=== PATIENT | male | born 1950 | race Caucasian/White ===

== ENCOUNTER 2016-09-17 16:47 | Emergency (ER) | payer OTHER, SELFPAY | END 2016-09-17 18:44 | disposition home or self-care (01) | PROVIDERS: Emergency Provider Emergency Medicine; Visit Provider Emergency Medicine | DX: M25.571 Pain in right ankle and joints of right foot (principal); T81.4XXA Infection following a procedure, initial encounter | CPT/HCPCS: 99201 ==

== ENCOUNTER 2017-07-21 12:58 | Emergency (ER) | payer OTHER, MEDICARE, SELFPAY ==
[2017-07-21 13:05] VITALS: BP 136/65; PULSE 65; RESP 16; TEMP 36.7; O2SAT 96; BMI 50.5
--- NOTE | 2017-07-21 13:11 | XR_ITS ---
XR chest 2V HISTORY: ITS.REASON: COUGH UP BLOOD ORDERING PHYSICIAN: Dustin Ashton MD PATIENT AGE: 67 years COMPARISON: None available FINDINGS: The cardiomediastinal silhouette and pulmonary vascularity are within normal limits. There is a coronary artery stent present No lobar consolidation or collapse is evident. A 7 mm faint nodular opacity is present in the right upper lobe overlying the second rib anteriorly nonspecific. Faint opacity also noted in the left upper lobe at 10 mm at the second interspace. The skull be due to summation artifacts. Cannot see the possibility of pulmonary nodules.. No acute bony abnormalities. IMPRESSION: 1. No acute finding. 2. Faint nodular opacities in the upper lobes. Follow-up chest x-ray suggested. If this persists, CT may be needed for further evaluation
--- NOTE | 2017-07-21 13:12 | HMH.EDGENADL ---
ED Disposition Clinical Impression: Bronchitis, Hemoptysis, Chest wall pain Diarrhea Qualifiers: Diarrhea type: unspecified type Qualified Code(s): R19.7 - Diarrhea, unspecified Disposition: Home, Self-Care Condition on Discharge: Good Instructions: DI for Acute Bronchitis Additional Instructions: Please drink plenty of fluids, take the antibiotics prescribed as instructed. If not better return to the emergency room (at anytime) or follow-up with your family physician within 2 days. Prescriptions: Amoxicillin/Potassium Clav [Augmentin 875-125 Tablet] 1 tab PO Q12H #20 tab Time of Disposition: 14:49 - Critical Care Critical Care Time: No Attestation: On , the high probability of a clinically significant, sudden or life threatening deterioration of the following system(s) required my full and direct attention, intervention and personal management. The time I documented below is in addition to time spent performing reported procedures but includes the following listed in this critical care notation. Medical Decision Making - Medical Records Medical records reviewed: Yes: I reviewed the patient's medical records. Vital Signs: 07/21/17 13:05 07/21/17 14:27 07/21/17 14:54 Temperature 98.1 F 98.8 F Temperature Source Oral Pulse Rate 85 79 Pulse Rate [Right Brachial] 65 Respiratory Rate 16 24 Blood Pressure 126/84 Blood Pressure [Right Arm] 136/65 Blood Pressure Mean [Right Arm] 88 Blood Pressure Source [Right Arm] Automatic Cuff Blood Pressure Position [Right Arm] Sitting 02 Sat by Pulse Oximetry 96 Oxygen Delivery Method Room Air - Lab Data Lab results reviewed: Yes: I reviewed the patient's lab results. Orders (Tests/Meds): ED MEDICATIONS Discontinued Medications Generic Name Dose Route Start Last Admin Trade Name Freq PRN Reason Stop Dose Admin Albuterol/Ipratropium 3 ml 07/21/17 13:52 07/21/17 14:24 Duoneb 3ml Neb IH 07/21/17 13:53 3 ml ONCE ONE Administration Amoxicillin/Clavulanate Potassium 500 each 07/21/17 13:52 Augmentin 500mg Tablet PO 07/21/17 13:53 ONCE ONE Protocol Diphenoxylate HCl/Atropine 5 mg 07/21/17 14:47 Lomotil 2.5mg Tablet PO 07/21/17 14:48 ONCE ONE Prednisone 60 mg 07/21/17 13:52 Deltasone 20mg Tablet PO 07/21/17 13:53 ONCE ONE ORDERS Category Date Time Status Diarrhea Panel, PCR Stat Lab 07/21/17 14:47 Ordered - Radiology Data #1 Image(s): Chest Image Reviewed: Yes I reviewed the patient's radiology image Preliminary Findings: Normal/NAD - Maninder Inquiry Pt receiving controlled substance: No - Reevaluation(s) Time: 14:30 Reevaluation #1: Upon reevaluation patient appears medically stable, in no acute distress, with no further episodes of epistaxis / hemotysis. Patient will be started on antibiotics, advised to follow-up with PCP or promptly return to the emergency room if any further recurrent episodes of coughing up blood. General Adult HPI - General Chief complaint: Upper Respiratory Infection Stated complaint: COUGHING UP BLOOD Time Seen by Provider: 07/21/17 12:58 Mode of Arrival: Family Vehicle Source of Information: Patient Limitations: No Limitations Description of Symptoms (Recalled from ER Triage Doc. by RN): COUGHING WITH A COLD FOR ABOUT A WEEK; SPIT UP BLOOD TODAY - History of Present Illness HPI narrative: This is a 67-year-old male patient presenting to the emergency room with productive cough that started approximately 1 week ago. Earlier this morning he has noticed that his sputum is blood-tinged. Complaint with pleuritic type chest pain. He denies any shortness of breath, any fever, chills, any recent travel, recent exposure to sick contacts. complaint: hemoptysis Onset (ago): day(s) (7) Location: chest Radiation: non-radiation Severity: mild Severity scale (1-10): 2 Quality: sharp Consistency: intermittent (Wit
[2017-07-21 14:27] VITALS: PULSE 85; PULSE 86
[2017-07-21 14:54] VITALS: BP 126/84; PULSE 79; RESP 24; TEMP 37.1; O2SAT 98
== END 2017-07-21 14:56 | disposition home or self-care (01) ==
PROVIDERS: Emergency Provider Emergency Medicine
DX: J20.9 Acute bronchitis, unspecified (principal); R07.89 Other chest pain; R19.7 Diarrhea, unspecified; I25.10 Atherosclerotic heart disease of native coronary artery without angina pectoris; I10 Essential (primary) hypertension; I25.2 Old myocardial infarction
CPT/HCPCS: 71046; 99283

== ENCOUNTER 2017-07-23 12:28 | Emergency (ER) | payer OTHER, SELFPAY ==
[2017-07-23 12:34] VITALS: BP 121/73; PULSE 85; RESP 18; TEMP 36.8; O2SAT 94; BMI 23.0
[2017-07-23 12:51] VITALS: BP 141/78; PULSE 90; RESP 18; TEMP 36.6; O2SAT 96; BMI 23.0
--- NOTE | 2017-07-23 12:54 | HMH.EDUTC ---
[facility] Disposition Clinical Impression: Sialoadenitis of submandibular gland Disposition: Home, Self-Care Condition on Discharge: Good Instructions: Parotitis Additional Instructions: [facility]17 (patient given copy of report) [facility] if swelling on right side of chin does not resolve. Sour candy, warm compresses Prescriptions: cephALEXin [Keflex 500mg Cap] 500 mg PO Q6H 10 Days #40 cap predniSONE [Prednisone 20mg Tab] 20 mg PO BID 5 Days #10 tab Referrals: Everett Ward MD [Physician] - Time of Disposition: 13:10 Medical Decision Making - Medical Records Medical records reviewed: Yes: I reviewed the patient's medical records. MR Comment: CXR from 07/21/17 showed nodules requiring follow up CXR or CT - patient given [facility] Vital Signs: 07/23/17 12:34 07/23/17 12:51 Temperature 98.2 F 98 F Temperature Source Oral Temporal Artery Scan Pulse Rate [Left Brachial] 85 90 Respiratory Rate 18 18 Blood Pressure [Left Arm] 121/73 141/78 Blood Pressure Mean [Left Arm] 89 99 Blood Pressure Source [Left Arm] Automatic Cuff Automatic Cuff Blood Pressure Position [Left Arm] Sitting Sitting 02 Sat by Pulse Oximetry 94 L 96 Oxygen Delivery Method Room Air Room Air - Maninder Inquiry Pt receiving controlled substance: No Medical Decision Making Narrative: Swelling likely unrelated to Augmentin, but will change antibiotics to better cover sialadenitis. Add Prednisone for breathing difficulty. [facility] HPI - General Stated complaint: possible allergic reaction to meds Time Seen by Provider: 07/23/17 12:50 Mode of Arrival: Ambulatory Source of Information: Patient Limitations: No Limitations Description of Symptoms (Recalled from Triage Doc. by RN): PT STATES HE STARTED TAKING AMOXICILLIN 2 DAYS AGO AND THEN NOTICED SWELLING ON THE RT SIDE OF HIS FACE. HES HAD 3 DOSES OF THE MED. HEENT Symptoms (Recalled from RN notes): No Resp Symptoms (Recalled from RN notes): No Skin Symptoms (Recalled from RN notes): No MS Symptoms (Recalled from RN notes): No Functional Status (Recalled from RN notes): NA - History of Present Illness Provider Complaint: Patient seen on 07/21/17 in ER for hemoptyis. He was diagnosed with URI, given Augmentin. Has had progressive swelling on the right side of his jaw since Wednesday, seeming to get worse with each dose of Augmentin. He is still short of breath as well, but no longer coughing up blood. Quit smoking years ago. No recent weight loss. Onset (ago): day(s) (2) Location: head, face Exacerbating factors: medication Associated symptoms: denies other symptoms Treatments prior to arrival: none - Related Data Home Medications Medication Instructions Recorded Confirmed Clopidogrel Bisulfate [Plavix 75mg 75 mg PO DAILY 07/23/17 07/23/17 Tab] Previous Rx's Medication Instructions Recorded cephALEXin [Keflex 500mg Cap] 500 mg PO Q6H 10 Days #40 cap 07/23/17 predniSONE [Prednisone 20mg 20 mg PO BID 5 Days #10 tab 07/23/17 Tab] Allergies Allergy/AdvReac Type Severity Reaction Status Date / Time No Known Allergies Allergy Verified 07/23/17 12:54 - Worker's Comp Is this a Worker's Comp case?: No [facility] History Medical History: Reports:: Coronary Artery Disease (hypercholesterolemia), Hypertension, Myocardial Infarction (s/p 4 stents) Denies:: Internal Pacemaker Other Surgeries: No: Pacemaker Amputation: No Fractures: No - *Social History Smoking Status: Never smoker Alcohol Intake: never - Psychiatric History Expresses thoughts of harming self/others: None Suicide Plan Description: No Plan ROS Obtained: Yes All systems reviewed & no additional complaints - Constitutional Constitutional: Denies fever(s), Denies night sweats, Denies weight loss - ENT Ears, Nose, Mouth, and Throat: Reports as per HPI, Reports neck mass - Respiratory Respiratory: Yes cough, Yes coughing up blood, Yes wheezin
--- NOTE | 2017-07-23 12:59 | ED_ITS ---
[facility] [place] Impression: Sialoadenitis of submandibular gland Disposition: Home, Self-Care Condition on Discharge: Good Instructions: Parotitis Additional Instructions: [facility] on [facility] from [facility]/17 (patient given copy of report) [facility] if swelling on right side of chin does not resolve. Sour candy, warm compresses Prescriptions: cephALEXin [Keflex 500mg Cap] 500 mg PO Q6H 10 Days #40 cap predniSONE [Prednisone 20mg Tab] 20 mg PO BID 5 Days #10 tab Referrals: Everett Ward MD [Physician] - Time of Disposition: 13:10 Medical Decision Making - Medical Records Medical records reviewed: Yes: I reviewed the patient's medical records. MR Comment: CXR from 07/21/17 showed nodules requiring follow up CXR or CT - patient given copy [facility] Vital Signs: 07/23/17 12:34 07/23/17 12:51 Temperature 98.2 F 98 F Temperature Source Oral Temporal Artery Scan Pulse Rate [Left Brachial] 85 90 Respiratory Rate 18 18 Blood Pressure [Left Arm] 121/73 141/78 Blood Pressure Mean [Left Arm] 89 99 Blood Pressure Source [Left Arm] Automatic Cuff Automatic Cuff Blood Pressure Position [Left Arm] Sitting Sitting 02 Sat by Pulse Oximetry 94 L 96 Oxygen Delivery Method Room Air Room Air - Maninder Inquiry Pt receiving controlled substance: No Medical Decision Making Narrative: Swelling likely unrelated to Augmentin, but will change antibiotics to better cover sialadenitis. Add Prednisone for breathing difficulty. [facility] - General Stated complaint: possible allergic reaction to meds Time Seen by Provider: 07/23/17 12:50 Mode of Arrival: Ambulatory Source of Information: Patient Limitations: No Limitations Description of Symptoms (Recalled from Triage Doc. by RN): PT STATES HE STARTED TAKING AMOXICILLIN 2 DAYS AGO AND THEN NOTICED SWELLING ON THE RT SIDE OF HIS FACE. HES HAD 3 DOSES OF THE MED. HEENT Symptoms (Recalled from RN notes): No Resp Symptoms (Recalled from RN notes): No Skin Symptoms (Recalled from RN notes): No MS Symptoms (Recalled from RN notes): No Functional Status (Recalled from RN notes): NA - History of Present Illness Provider Complaint: Patient seen on 07/21/17 in ER for hemoptyis. He was diagnosed with URI, given Augmentin. Has had progressive swelling on the right side of his jaw since Wednesday, seeming to get worse with each dose of Augmentin. He is still short of breath as well, but no longer coughing up blood. Quit smoking years ago. No recent weight loss. Onset (ago): day(s) (2) Location: head, face Exacerbating factors: medication Associated symptoms: denies other symptoms Treatments prior to arrival: none - Related Data Home Medications Medication Instructions Recorded Confirmed Clopidogrel Bisulfate [Plavix 75mg 75 mg PO DAILY 07/23/17 07/23/17 Tab] Previous Rx's Medication Instructions Recorded cephALEXin [Keflex 500mg Cap] 500 mg PO Q6H 10 Days #40 cap 07/23/17 predniSONE [Prednisone 20mg 20 mg PO BID 5 Days #10 tab 07/23/17 Tab] Allergies Allergy/AdvReac Type Severity Reaction Status Date / Time No Known Allergies Allergy Verified 07/23/17 12:54 - Worker's Comp Is this a Worker's Comp case?: No [facility] History Medical History: Reports:: Coronary Artery Disease (hypercholesterolemia), Hypertension, Myocardial In
== END 2017-07-23 13:00 | disposition home or self-care (01) ==
LOC: ER 12:45 → UTC 12:45
PROVIDERS: Emergency Provider Physician Assistant
DX: K11.21 Acute sialoadenitis (principal); I25.10 Atherosclerotic heart disease of native coronary artery without angina pectoris; I10 Essential (primary) hypertension; Z79.899 Other long term (current) drug therapy; I25.2 Old myocardial infarction; Z95.0 Presence of cardiac pacemaker
CPT/HCPCS: 99202

== ENCOUNTER 2020-04-04 12:32 | Emergency (ER) | payer OTHER, SELFPAY ==
--- NOTE | 2020-04-04 12:49 | HMH.EDUTC ---
[facility] [place] Disposition Clinical Impression: Low back pain Qualifiers: Chronicity: acute Back pain laterality: right Sciatica presence: with sciatica Sciatica laterality: sciatica of right side Qualified Code(s): M54.41 - Lumbago with sciatica, right side Disposition: Home, Self-Care Condition on Discharge: Good Instructions: Low Back Pain, DI for Low Back Pain Additional Instructions: Go home and rest. It would be best if you rested tomorrow too. No heavy lifting. No twisting. Take the oral medications as directed. The muscle relaxer (robaxin) will make you drowsy, so don't drive or operate heavy machinery after taking it. Don't start the oral steroids (medrol dose pack) until tomorrow, since you had the shots in here today. Follow up with your regular doctor. GO TO THE ER FOR ANY WORSENING SYMPTOMS OR CONCERN, ESPECIALLY BOWEL OR BLADDER ISSUES, SADDLE AREA NUMBNESS, FEVER, ETC Prescriptions: methylPREDNISolone [Medrol] 4 mg PO DIRECTED 6 Days #21 tab.ds.pk Transmission Status: Received by [id number] Methocarbamol [Robaxin 500mg Tab] 500 mg PO BIDP PRN #30 tab PRN Reason: Muscle Spasm Transmission Status: Received by [id number] Referrals: PCP,No [Primary Care Provider] - Forms: Work/School Release Time of Disposition: 13:28 Medical Decision Making - Medical Records Medical records reviewed: No: I reviewed the patient's medical records. - Maninder Inquiry Pt receiving controlled substance: No Vital Signs: 04/04/20 12:58 04/04/20 13:32 Temperature 98.7 F 98.7 F Temperature Source Oral Pulse Rate 66 Pulse Rate [Right Brachial] 66 Respiratory Rate 20 20 Blood Pressure 157/80 H Blood Pressure [Right Arm] 157/80 H Blood Pressure Mean [Right Arm] 105 Blood Pressure Source [Right Arm] Automatic Cuff Blood Pressure Position [Right Arm] Sitting 02 Sat by Pulse Oximetry 97 Oxygen Delivery Method Room Air Orders (Tests/Meds): ED MEDICATIONS Discontinued Medications Generic Name Dose Route Start Last Admin Trade Name Freq PRN Reason Stop Dose Admin Ketorolac Tromethamine 30 mg 04/04/20 13:05 04/04/20 13:16 Ketorolac 60mg/2ml Vial IM 04/04/20 13:06 30 mg ONCE ONE Administration Methylprednisolone Sodium Succinate 125 mg 04/04/20 13:05 04/04/20 13:16 Methylprednisolone Sod Succ 125mg Vial IM 04/04/20 13:06 125 mg ONCE ONE Administration [facility] [place] HPI - General Stated complaint: WC 07/05/19 back pain Time Seen by Provider: 04/04/20 12:51 - History of Present Illness Provider Complaint: He c/o right lower back pain since yesterday. 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 When he was raising the stoll on his bus to do a safety check he felt something pull in his right lower back. Since then he has had pain of his lower back that is worse with bending and twisting. - Related Data Home Medications Medication Instructions Recorded Confirmed Aspirin [Aspirin 81mg chewable 81 mg PO DAILY 04/04/20 04/04/20 tab] Clopidogrel Bisulfate [Plavix 75mg 75 mg PO DAILY 04/04/20 04/04/20 Tab] Previous Rx's Medication Instructions Recorded Methocarbamol [Robaxin 500mg Tab] 500 mg PO BIDP PRN #30 tab 04/04/20 methylPREDNISolone [Medrol] 4 mg PO DIRECTED 6 Days #21 04/04/20 tab.ds.pk Allergies Allergy/AdvReac Type Severity Reaction Status Date / Time No Known Allergies Allergy Verified 07/23/17 12:54 [facility] History - Hepatitis A Screen Attestation statement:: This patient has been screened for Hepatitis A risk factors. I have reviewed the patient's past medical history: Yes Medical History: Reports:: Coronary Artery Disease (hypercholesterolemia), Hypertension, Myocardial Infarction (s/p 4 stents) Denies:: Internal Pacemaker Other Surgeries: No: Pacemaker Amputation: No Fractures: No - Social History Smoking Status: Never smoker Alcohol Intake: never ROS Obtained: Yes All systems reviewed & no additi
[2020-04-04 12:58] VITALS: BP 157/80; PULSE 66; RESP 20; TEMP 37.1; O2SAT 97; BMI 21.6
[2020-04-04 13:32] VITALS: BP 157/80; PULSE 66; RESP 20; TEMP 37.1; O2SAT 97
== END 2020-04-04 13:48 | disposition home or self-care (01) ==
PROVIDERS: Emergency Provider Nurse Practitioner Family
DX: M54.41 Lumbago with sciatica, right side (principal); X50.0XXA Overexertion from strenuous movement or load, initial encounter; Y92.69 Other specified industrial and construction area as the place of occurrence of the external cause; Y99.0 Civilian activity done for income or pay
CPT/HCPCS: 96372; 99201

== ENCOUNTER 2020-04-08 11:33 | Emergency (ER) | payer OTHER, SELFPAY ==
[2020-04-08 11:44] VITALS: BP 185/73; PULSE 70; RESP 20; TEMP 36.7; O2SAT 98; BMI 21.6
--- NOTE | 2020-04-08 11:48 | XR_ITS ---
PROCEDURE: XR LUMBAR SPINE 2-3V CLINICAL INDICATION: hurt at work Back pain COMPARISON: CR CXR2V XR chest 2V from 07/21/2017 FINDINGS: No fracture or dislocation. No lytic or blastic change. There is normal mineralization. Anterior osteophytes are present at L2 L3 and L4. There is lumbarization of S1. Arterial stent is present in the right iliac area. There are multiple small calcific densities overlying the left upper quadrant suggesting renal calculi. Other findings:None. IMPRESSION: Degenerative changes, no acute finding. Left nephrolithiasis Dictated by: Nomi Smalls MD 04/08/2020 13:49 Nomi Smalls MD in [place] 04/08/2020 13:49
--- NOTE | 2020-04-08 12:02 | HMH.EDUTC ---
[facility] [place] Impression: Low back pain Qualifiers: Chronicity: acute Back pain laterality: right Sciatica presence: with sciatica Sciatica laterality: sciatica of right side Qualified Code(s): M54.41 - Lumbago with sciatica, right side Disposition: Home, Self-Care Condition on Discharge: Good Instructions: Low Back Pain, DI for Low Back Pain Additional Instructions: Go home and rest. It would be best if you rested tomorrow too. No heavy lifting. No twisting. Take the medications as directed. The muscle relaxer (cyclobenziprine) will make you drowsy, so don't drive or operate heavy machinery after taking it. Don't take the robaxin and the cyclobenziprine. These are both muscle relaxers and it will make you too drowsy. Follow up with your regular doctor. GO TO THE ER FOR ANY WORSENING SYMPTOMS OR CONCERN, ESPECIALLY BOWEL OR BLADDER ISSUES, SADDLE AREA NUMBNESS, FEVER, ETC Prescriptions: Cyclobenzaprine HCl [Cyclobenzaprine 10mg Tab*] 10 mg PO BIDP PRN #30 tab PRN Reason: Muscle Spasm Transmission Status: Received by [id number] Referrals: PCP,No [Primary Care Provider] - Nat Weston MD [Physician] - Forms: Work/School Release Time of Disposition: 13:09 Medical Decision Making - Medical Records Medical records reviewed: No: I reviewed the patient's medical records. - Maninder Inquiry Pt receiving controlled substance: No Vital Signs: 04/08/20 11:44 04/08/20 13:09 Temperature 98.1 F 98.1 F Temperature Source Oral Pulse Rate 70 Pulse Rate [Left Brachial] 70 Respiratory Rate 20 20 Blood Pressure 185/73 H Blood Pressure [Left Arm] 185/73 H Blood Pressure Mean [Left Arm] 110 Blood Pressure Source [Left Arm] Automatic Cuff Blood Pressure Position [Left Arm] Sitting 02 Sat by Pulse Oximetry 98 Oxygen Delivery Method Room Air Orders (Tests/Meds): ED MEDICATIONS Discontinued Medications Generic Name Dose Route Start Last Admin Trade Name Freq PRN Reason Stop Dose Admin Ketorolac Tromethamine 60 mg 04/08/20 12:48 04/08/20 12:59 Ketorolac 60mg/2ml Vial IM 04/08/20 12:49 60 mg ONCE ONE Administration [facility] [place] - General Stated complaint: [id number] back injury Time Seen by Provider: 04/08/20 12:08 Mode of Arrival: Ambulatory Source of Information: Patient Limitations: No Limitations Description of Symptoms (Recalled from Triage Doc. by RN): PATIENT WAS SEEN HERE LAST WEEK FOR WC BACK SPRAIN ON 04/04/20. STATES NO IMPROVEMENT HEENT Symptoms (Recalled from RN notes): No Resp Symptoms (Recalled from RN notes): No Skin Symptoms (Recalled from RN notes): No MS Symptoms (Recalled from RN notes): Yes Functional Status (Recalled from RN notes): WNL - History of Present Illness Provider Complaint: He is back with continued low back pain. He states that he is not better and he is not able to go back to work yet. He denies any worsening symptoms, but he also states that he is no better. He denies any bowel or bladder issues or any saddle area numbness. - Related Data Home Medications Medication Instructions Recorded Confirmed Aspirin [Aspirin 81mg chewable 81 mg PO DAILY 04/04/20 04/08/20 tab] Clopidogrel Bisulfate [Plavix 75mg 75 mg PO DAILY 04/04/20 04/08/20 Tab] methylPREDNISolone [Medrol] 4 mg PO DIRECTED 04/08/20 04/08/20 Previous Rx's Medication Instructions Recorded Methocarbamol [Robaxin 500mg Tab] 500 mg PO BIDP PRN #30 tab 04/04/20 Cyclobenzaprine HCl 10 mg PO BIDP PRN #30 tab 04/08/20 [Cyclobenzaprine 10mg Tab*] Allergies Allergy/AdvReac Type Severity Reaction Status Date / Time No Known Allergies Allergy Verified 07/23/17 12:54 - Worker's Comp Is this a Worker's Comp case?: No [facility] History - Hepatitis A Screen Drug use history?: No High risk sexual behaviors?: No History of sexually transmitted infection?: No Currently employed?: No Childcare worker?: No Do you have indo
[2020-04-08 13:09] VITALS: BP 185/73; PULSE 70; RESP 20; TEMP 36.7; O2SAT 98
== END 2020-04-08 13:15 | disposition home or self-care (01) ==
PROVIDERS: Emergency Provider Nurse Practitioner Family
DX: M54.41 Lumbago with sciatica, right side (principal)
CPT/HCPCS: 72100; 96372; 99202

== ENCOUNTER 2020-05-07 13:47 | Emergency (ER) | payer OTHER, SELFPAY ==
[2020-05-07 14:07] VITALS: BP 161/81; PULSE 81; RESP 20; TEMP 36.7; O2SAT 95; BMI 22.3
[2020-05-07 14:18] VITALS: BP 151/85; PULSE 79; RESP 18; O2SAT 94
--- NOTE | 2020-05-07 14:20 | PC.NURSE ---
PATIENT SENT TO ER PER JOSHUA LINARES APRN FOR FURTHER EVALUATION. REPORT GIVEN TO Angelita CASTELAN RN
[2020-05-07 14:23] VITALS: BP 161/81; PULSE 81; RESP 20; TEMP 36.7; O2SAT 95; BMI 22.4
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
[2020-05-07 14:30] VITALS: BP 127/68; PULSE 64; RESP 20; O2SAT 96
--- NOTE | 2020-05-07 14:47 | PC.NURSE ---
Pt to rad.
[2020-05-07 15:00] VITALS: PULSE 83; RESP 18; O2SAT 96
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
[2020-05-07 15:19] VITALS: BP 173/82; PULSE 82; RESP 18; TEMP 36.7; O2SAT 96
== END 2020-05-07 15:22 | disposition home or self-care (01) ==
LOC: UTC 13:56 → ER 14:22
PROVIDERS: Emergency Provider Emergency Medicine; PCP Family Medicine
DX: S06.0X0A Concussion without loss of consciousness, initial encounter (principal); W22.8XXA Striking against or struck by other objects, initial encounter; Y92.73 Farm field as the place of occurrence of the external cause; I25.10 Atherosclerotic heart disease of native coronary artery without angina pectoris; I10 Essential (primary) hypertension; I25.2 Old myocardial infarction; Z95.5 Presence of coronary angioplasty implant and graft; Z79.899 Other long term (current) drug therapy
CPT/HCPCS: 70450; 99283

== ENCOUNTER 2021-02-08 00:20 | Inpatient (IN) | payer MEDICARE, OTHER, SELFPAY ==
[2021-02-08] VITALS (18 sets, daily range): BP systolic 108–169; BP diastolic 57–88; PULSE 57–85; RESP 11–21; TEMP 36–37.3; O2SAT 93–99; BMI 20.2; BMI 20.6
--- NOTE | 2021-02-08 | IR_ITS ---
APPROVED REPORT Patient Location: Emergent Paint Maker: RONNA Greer RT (R) PROCEDURES Left heart catheterization Left ventriculogram Selective coronary angiogram Thrombectomy to the proximal dominant right coronary artery followed by drug-eluting stent deployment to the ostial proximal mid and distal dominant right coronary in a contiguous manner Informed consent was obtained prior to the procedure. COMPLICATIONS NONE Estimated Blood Loss: LESS THAN 10 ML TECHNIQUE One percent lidocaine used to anesthetize the right anterior aspect of the wrist. The right radial artery was accessed via the Seldinger technique. A 6 Arabic sheath was placed in the right radial artery. 2.5 mg of verapamil, 800 mcg of nitroglycerin, 1mg Lidocaine were given through the arterial sheath. A Informative guide catheter was used to perform right coronary angiography. This demonstrated a fresh thrombus in the proximal dominant right coronary artery therefore Choice PT extra-support wire was distally placed. A penumbra aspiration catheter was then used to aspirate a large thrombus which restored FILIPPO-3 flow. Following this a 3 mm x 38 mm resolute [place] stent was placed in the ostial proximal segment at 24 selene reducing the stenosis. A 3.5 x 38 mm resolute [place] stent was then placed distal to this overlapping the first stent and deployed at 20 selene. This balloon was brought back and deployed at 24 selene in the ostial proximal segment as well as the overlapping segment to mesh the 2 stents. Following this an additional 3 mm x 38 mm resolute [place] stent was placed distal to the second stent yet still overlapping it and deployed at 20 selene. The balloon was brought back and deployed at 24 selene to mesh the stent. Following this a 4 mm x 12 mm balloon was used to mesh the second and third stent at 18 selene. The balloon was deployed in an area in the proximal segment at 24 selene to post dilate. The balloon was taken out multiple times throughout the ostial proximal and mid segment to 24 selene and even some inflations as high as 26 selene. Excellent angiographic results were obtained with FILIPPO 0 flow at the beginning of the procedure and FILIPPO-3 flow at the end of the procedure. Following this the guide catheter was used to perform left coronary artery angiography as well as left ventriculogram and left heart catheterization. The CT machine was malfunctioning however patient received 6600 units of heparin in the emergency department. Because of the unknown ACT he was given an additional 3000 units empirically to assure therapeutic ACT. At the end of the case the ACT machine was still broken however we are able to submit the ACT and it still pending. The patient weighs 65 kg and received 9600 units of heparin therefore should empirically be supratherapeutic. At the end of the procedure the apparatus was removed the sheath was removed good hemostasis was achieved using TR banding patient was transferred to the postop holding area in stable condition The closing ACT was 248 seconds. Because of this an additional 2000 units of heparin was administered ANGIOGRAPHIC RESULTS The left main artery Has an ostial 10% stenosis The left anterior descending artery Has proximal 10 to 20% stenoses with mid vessel 10 to 20% stenoses. The circumflex artery Is a nondominant yet still large vessel giving rise to a moderate to large ramus intermedius which has a proximal 30 to 40% concentric stenosis. The circumflex artery itself has proximal 20 to 30% stenosis The right coronary artery Is a large dominant vessel initially proximally thrombosed. Following aspiration and drug-eluting stenting the ostial proximal mid and distal right coronary is widely pat
--- NOTE | 2021-02-08 00:20 | PC.NURSE ---
civil laboratory technician team paged for STEMI ALERT - EMS called STEMI alert from the field. Dr Mendez aware of EKG prior to arrival. civil laboratory technician team returned call and en route at this time. Spoke to JOSEPH Murry Rad Erica Ezell, RN
--- NOTE | 2021-02-08 00:23 | ECG_ITS ---
APPROVED REPORT Exam: Resting ECG HR:58 bpm ECG Measurements Heart Rate 58 AXES AK 174 P 74 QRSd 94 QRS 44 QT 462 T 91 QTc 453 Conclusion Sinus bradycardia Septal infarct, age undetermined Inferior injury pattern ACUTE IN Consider right ventricular involvement in acute inferior infarct Abnormal ECG Electronically signed by : Yfn Sandhu MD 02/08/2021 07:56:28
[2021-02-08 00:35] LABS: Basophils # 0.1 K/mm3 (0-0.2); Basophils % 0.7 % (0.1-2.0); Eosinophils # 0.2 K/mm3 (0.0-0.4); Eosinophils % 2.1 % (0.1-12.0); Hematocrit 40.6 % (42.0-52.0); Hemoglobin 13.2 g/dL (14.1-18.0); Lymphocytes # 3.2 K/mm3 (0.7-4.5); Lymphocytes % 38.6 % (10-50); Mean Corpuscular HGB Conc 32.6 g/dL (31.8-35.4); Mean Corpuscular Volume 92.1 fl (80-94); Mean Platelet Volume 7.9 fl (7.4-10.4); Monocytes # 0.5 K/mm3 (0.1-1.0); Monocytes % 5.6 % (1.7-9.3); Neutrophils # 4.4 K/mm3 (1.8-7.8); Neutrophils % 53.1 % (37.0-80.0); Platelet Count 215 K/mm3 (142-424); Red Blood Count 4.41 M/mm3 (4.60-6.20); Red Cell Distribution Width 13.3 % (11.5-17.5); White Blood Count 8.4 K/mm3 (4.8-10.8)
[2021-02-08 00:39] LABS: Alanine Aminotransferase 16 U/L (12-78); Albumin Level 3.9 g/dl (3.5-5.0); Albumin/Globulin Ratio 1.6 (1.1-1.8); Alkaline Phosphatase 53 U/L (38-126); Anion Gap 13.7 mEq/L (5-15); Aspartate Amino Transferase 33 U/L (17-59); Bilirubin,Total 0.5 mg/dl (0.2-1.3); Blood Urea Nitrogen 14 mg/dl (9-20); Calcium 8.5 mg/dl (8.4-10.2); Carbon Dioxide 24 mmol/L (22.0-30.0); Chloride 99 mmol/L (98-107); Creatinine Clearance Estimated 72 mL/min (50-200); Estimated Glomerular Filt Rate 115 ml/min (>60); GFR (African American) 139 ML/MIN (>60); Globulin 2.5 g/dL (1.3-3.2); Glucose 114 mg/dl (74-100); Potassium 3.7 mmoL/L (3.5-5.1); Sodium 133 mmol/L (136-145); Total Protein,Serum 6.4 g/dl (6.3-8.2)
--- NOTE | 2021-02-08 00:42 | HMH.EDGENADL ---
ED Disposition Clinical Impression: ST elevation myocardial infarction (STEMI) Disposition: Admitted As Inpatient Condition on Discharge: Critical Referrals: Provider,Referral, [Primary Care Provider] - - Critical Care Critical Care Time: No Attestation: On 02/08/21, the high probability of a clinically significant, sudden or life threatening deterioration of the following system(s) required my full and direct attention, intervention and personal management. The time I documented below is in addition to time spent performing reported procedures but includes the following listed in this critical care notation. Medical Decision Making - Maninder Inquiry Pt receiving controlled substance: No Vital Signs: 02/08/21 00:13 Temperature 97.8 F Temperature Source Oral Pulse Rate [Right] 57 L Respiratory Rate 16 Blood Pressure [Right Arm] 118/66 Blood Pressure Mean [Right Arm] 83 02 Sat by Pulse Oximetry 99 - Lab Data Lab Results 02/08/21 00:25: WBC 8.4, RBC 4.41 L, Hgb 13.2 L, Hct 40.6 L, MCV 92.1, MCH 30.0, MCHC 32.6, RDW 13.3, Plt Count 215, MPV 7.9, Neut % (Auto) 53.1, Lymph % (Auto) 38.6, [place] % (Auto) 5.6, Eos % (Auto) 2.1, Baso % (Auto) 0.7, Neut # (Auto) 4.4, Lymph # (Auto) 3.2, [place] # (Auto) 0.5, Eos # (Auto) 0.2, Baso # (Auto) 0.1 02/08/21 00:25: Sodium 133 L, Potassium 3.7, Chloride 99, Carbon Dioxide 24, Anion Gap 13.7, BUN 14, Creatinine 0.70, Estimated Creat Clear 72, Estimated GFR 115, Est GFR ( Amer) 139, Glucose 114 H, Calcium 8.5, Total Bilirubin 0.5, AST 33, ALT 16, Alkaline Phosphatase 53, Total Protein 6.4, Albumin 3.9, Globulin 2.5, Albumin/Globulin Ratio 1.6 Result diagrams: 02/08/21 00:25 02/08/21 00:25 Orders (Tests/Meds): ED MEDICATIONS Discontinued Medications Generic Name Dose Route Start Last Admin Trade Name Freq PRN Reason Stop Dose Admin Heparin Sodium (Porcine) 6,600 unit 02/08/21 00:16 02/08/21 00:20 Heparin Sodium 5,000 Unit/Ml Vial 100 unit/kg (6600 unit) 02/08/21 00:17 6,600 unit IV Administration ONCE ONE Ticagrelor 180 mg 02/08/21 00:16 02/08/21 00:20 Ticagrelor 90mg Tablet PO 02/08/21 00:17 180 mg ONCE ONE Administration ORDERS Category Date Time Status CMP [Comprehensive Metabolic Panel] Stat Lab 02/08/21 00:25 Results Troponin I Q3H Lab 02/08/21 03:30 Ordered Troponin I Q3H Lab 02/08/21 06:30 Ordered Troponin I Stat Lab 02/08/21 00:25 Results Medical Decision Narrative: The patient is a 61-year-old male with history of CAD who presents to the emergency department with 45 minutes of pressure-like chest pain associated with shortness of breath and nausea. Differential diagnosis includes STEMI NSTEMI, unstable angina. EMS called in route with an EKG concerning for STEMI which they sent. The patient had obvious elevation in 2, 3, aVF with reciprocal changes. The EKG was sent to cardiology who agreed and the Access Tech was activated. EMS gave aspirin, nitro, morphine prior to arrival. On arrival the patient is overall well-appearing with stable blood pressure and heart rate in the high 50s. He was placed on pads and given heparin and Brilinta according to cardiology recommendations. Was also given another nitro for continued pain. Repeat EKG concerning for STEMI. The patient was taken to the Access Tech for further management. General Adult HPI - General Chief complaint: Chest Pain Stated complaint: stemi Time Seen by Provider: 02/08/21 00:22 Mode of Arrival: EMS Source of Information: Patient Limitations: No Limitations Description of Symptoms (Recalled from ER Triage Doc. by RN): pt c/o cp that started 45 mins ago - History of Present Illness HPI narrative: The 61-year-old male with history of CAD status post 3 LAD stents in 2004 who presents to the emergency department with 45 minutes of pressure like bilateral chest pain associated with shortness of breath. The patient reports all day he has not
--- NOTE | 2021-02-08 00:43 | PC.NURSE ---
patient escorted to refuse laborer via stretcher on the zoll with EMS and JOSEPH Paul
[2021-02-08 00:51] LABS: Troponin I 0.14 ng/ml (0.00-0.034)
--- NOTE | 2021-02-08 00:56 | PC.NURSE ---
Dr Tariq paged for admission
--- NOTE | 2021-02-08 00:59 | PC.NURSE ---
Dr Tariq agreed to admit
[2021-02-08 01:45] LABS: CATHL Activated Clotting Time 248 SEC (74-125)
[2021-02-08 01:56] LABS: Coronavirus 19, PCR Not Detected (NotDetected); Influenza A, PCR Not Detected (NotDetected); Influenza B, PCR Not Detected (NotDetected)
--- NOTE | 2021-02-08 02:01 | PC.NURSE ---
patient up to floor from veterinarian laboratory animal care at this time.
--- NOTE | 2021-02-08 02:23 | PC.NURSE ---
received patient from cath lab radiological technologist, right radial cath site clean dry and intact. tracelet in place. patietn denies pain or nausea. continues to be very groggy, unable to do admission history due to this, no family present
--- NOTE | 2021-02-08 04:40 | PC.NURSE ---
room air sat of 93%
[2021-02-08 06:37] LABS: Basophils % 0.3 % (0.1-2.0); Eosinophils # 0.1 K/mm3 (0.0-0.4); Eosinophils % 1.6 % (0.1-12.0); Lymphocytes # 1.2 K/mm3 (0.7-4.5); Lymphocytes % 20.4 % (10-50); Mean Corpuscular HGB Conc 33.3 g/dL (31.8-35.4); Mean Corpuscular Hemoglobin 30.6 pg (27.0-31.2); Mean Corpuscular Volume 91.8 fl (80-94); Mean Platelet Volume 7.8 fl (7.4-10.4); Monocytes # 0.2 K/mm3 (0.1-1.0); Neutrophils # 4.3 K/mm3 (1.8-7.8); Neutrophils % 73.7 % (37.0-80.0); Platelet Count 155 K/mm3 (142-424); Red Blood Count 4.25 M/mm3 (4.60-6.20); Red Cell Distribution Width 13.3 % (11.5-17.5); White Blood Count 5.8 K/mm3 (4.8-10.8)
[2021-02-08 06:56] LABS: Chloride 102 mmol/L (98-107); Potassium 4.1 mmoL/L (3.5-5.1); Sodium 132 mmol/L (136-145)
[2021-02-08 06:59] LABS: Anion Gap 9.1 mEq/L (5-15); Blood Urea Nitrogen 13 mg/dl (9-20); Carbon Dioxide 25 mmol/L (22.0-30.0); Creatinine Clearance Estimated 74 mL/min (50-200); Estimated Glomerular Filt Rate 137 ml/min (>60); GFR (African American) 166 ML/MIN (>60); Glucose 110 mg/dl (74-100)
[2021-02-08 07:00] LABS: Calcium 8.4 mg/dl (8.4-10.2)
--- NOTE | 2021-02-08 10:58 | HMH.HP ---
*Admission Date: 02/08/21 <Jia Loera - 02/08/21 11:11> *Chief complaint: chest pain <Jia Loera - 02/08/21 11:11> *History of present illness: The 61-year-old male with history of CAD status post 3 LAD stents in 2004 who presents to the emergency department with 45 minutes of pressure like bilateral chest pain associated with shortness of breath. The patient reports all day he has not felt quite right but took a nap and woke up with the chest pain which was also associated with nausea. The patient is on Plavix but reports he has not taken it for a few weeks. He has not taken his other medications as well. On EMS arrival EKG was concerning for STEMI. The patient was given 324 of aspirin, 1 of nitro, morphine. The patient drinks alcohol daily. Denies abdominal pain, back pain, fever, chills. The patient is a 61-year-old male with history of CAD who presents to the emergency department with 45 minutes of pressure-like chest pain associated with shortness of breath and nausea. Differential diagnosis includes STEMI, NSTEMI, unstable angina. EMS called in route with an EKG concerning for STEMI which they sent. The patient had obvious elevation in 2, 3, aVF with reciprocal changes. The EKG was sent to cardiology who agreed and the Passenger Screener was activated. EMS gave aspirin, nitro, morphine prior to arrival. On arrival the patient is overall well-appearing with stable blood pressure and heart rate in the high 50s. He was placed on pads and given heparin and Brilinta according to cardiology recommendations. Was also given another nitro for continued pain. Repeat EKG concerning for STEMI. The patient was taken to the Passenger Screener for further management. (above as per ER physician) The patient was taken to the cardiac cath technician and 3 stents were placed. This am, he is feeling much better and has been up moving around his room without any chest pain or shortness of breath. He is eating well and wants to go home. <Scot Loeraa - 02/08/21 11:11> [facility] History I have reviewed the patient's past medical history: Yes <Scot Loeraa - 02/08/21 11:11> Medical History: Reports:: Chronic Obstructive Pulmonary Disease (COPD), Coronary Artery Disease, Hypertension Denies:: Asthma, Atrial Fibrillation, Congestive Heart Failure, Diabetes Mellitus Type 1, Diabetes Mellitus Type 2, Gastroesophageal Reflux Disease(GERD), Heart Murmur <Jia Loera 02/08/21 11:11> *Have you ever received a pneumonia vaccine?: Yes <Jia Loera 02/08/21 11:11> *Have you received a flu vaccine this season?: Yes <Jia Loera 02/08/21 11:11> Other Surgeries: Yes: Other <Jose Tariq 02/08/21 14:55> Yes: Cardiac Catheterization, Other (Stent placed in the leg due to blockage from a heart cath) <Jia Loera 02/08/21 11:11> Amputation: No <Jia Loera 02/08/21 11:11> Fractures: No <Jia Loera 02/08/21 11:11> - *Social History Smoking Status: Former smoker <Jia Loera 02/08/21 11:11> Tobacco Type: cigarettes <Jia Loera 02/08/21 11:11> Smoking End Date: 2007 <Jia Loera 02/08/21 11:11> Alcohol Intake: current <Jia Loera 02/08/21 11:11> Alcohol Intake Frequency:: holidays/special occasions only <Jia Loera 02/08/21 11:11> *Occupational Status:: employed <Jia Loera 02/08/21 11:11> Household Members: spouse <Jia Loera 02/08/21 11:11> *Travel in the last 8 weeks: None <Jia Loera 02/08/21 11:11> Family Hx:: Cancer, Other (blood clot) <Jia Loera 02/08/21 11:11> Review of Systems - Constitutional Denies chills, Denies fever(s), Denies weakness <Jia Loera 02/08/21 11:11> - Eyes Denies blurry vision, Denies double vision <Jia Loera 02/08/21 11:11> - ENT Denies nasal congestion, Denies sore throat <Jia Loera 02/08/21 11:11> - *Cardiovascular Denies chest pain, Denies shortness of breath, Denies rapid, pounding, or irregular heartbe
--- NOTE | 2021-02-08 17:11 | PC.NURSE ---
No acute changes. Remains on room air. Lungs CTA. HR regular, Sinus on tely. Abdomen soft, non-tender w/ active BS in all quads. Independent w/ adl's. Showered this afternoon and received linen change. R wrist cath site unchanged from initial assessment this AM. Currently eating supper. No needs voiced. Call trinh w/in reach
[2021-02-09] VITALS: BP 121/60; PULSE 80; PULSE 91; RESP 16; TEMP 36.9; O2SAT 94
[2021-02-09 04:00] VITALS: BP 135/53; PULSE 70; PULSE 86; RESP 16; TEMP 36.8; O2SAT 94
--- NOTE | 2021-02-09 04:27 | PC.NURSE ---
shift summary pateint denies pain, soa or nausea. monitor tech has shown sr throughout shift without ectopy. sats have remained high 90s on r/a. ambulaing to bathroom independently.
[2021-02-09 05:27] VITALS: BMI 20.6
[2021-02-09 08:00] VITALS: BP 124/65; PULSE 80; RESP 24; TEMP 36.9; O2SAT 96
--- NOTE | 2021-02-09 09:46 | HMH.ACPN2 ---
Internal Medicine - PN: Subj *Date: 02/09/21 *Time: 09:46 Interval history: No complaints of chest pain, palpitations, shortness of breath, or swelling. He rested well last night. He is eager to go home. 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 Exam Vital signs and Labs for Last 24 Hours: Temp Pulse Resp BP Pulse Ox 98.5 F 80 24 124/65 96 02/09/21 08:00 02/09/21 08:00 02/09/21 08:00 02/09/21 08:00 02/09/21 08:00 I & O for Last 24 hours: Intake & Output 02/06/21 02/07/21 02/08/21 02/09/21 11:59 11:59 11:59 11:59 Intake Total 480 / 480 960 / 960 Balance 480 / 480 960 / 960 Weight 148 lb 147 lb 5 oz Narrative: Alert and oriented. Lungs are clear to auscultation. Heart is regular with no ectopy. Extremities no edema. Assessment and Plan (1) ST elevation myocardial infarction (STEMI) Status: Acute Category: Medical Code(s): I21.3 - ST elevation (STEMI) myocardial infarction of unspecified site (2) Coronary artery disease Status: Acute Category: Medical Code(s): I25.10 - Atherosclerotic heart disease of [place] coronary artery without angina pectoris (3) Status post coronary artery stent placement Status: Acute Category: Surgical Code(s): Z95.5 - Presence of coronary angioplasty implant and graft (4) Hypertension Status: Chronic Category: Medical Code(s): I10 - Essential (primary) hypertension - Assessment and plan all Dx Assessment and Plan for all problems:: Continue cardiac monitoring. Activity ad daniel. Echocardiogram tomorrow.
[2021-02-09 12:00] VITALS: BP 138/78; PULSE 73; PULSE 74; RESP 18; TEMP 36.8; O2SAT 98
[2021-02-09 16:00] VITALS: BP 128/72; PULSE 74; PULSE 75; RESP 18; TEMP 36.8; O2SAT 97
[2021-02-09 20:00] VITALS: BP 161/66; PULSE 72; PULSE 80; RESP 17; TEMP 36.9; O2SAT 98
[2021-02-10] VITALS: BP 128/60; PULSE 70; PULSE 81; RESP 20; TEMP 37; O2SAT 95
--- NOTE | 2021-02-10 03:50 | PC.NURSE ---
pt alert and oriented. no complaints. independent with ambulation. vss. telemetry reads sr with no ectopy. call light in reach. will continue to monitor
[2021-02-10 04:00] VITALS: BP 131/71; PULSE 69; PULSE 72; RESP 16; TEMP 36.6; O2SAT 93
[2021-02-10 06:00] VITALS: BMI 19.5
[2021-02-10 07:08] VITALS: PULSE 60
--- NOTE | 2021-02-10 07:08 | HMH.PHAVTE ---
[facility] Pharm[facility] VTE Monitoring - Patient Demographics Admission date: 02/08/21 Report Date: 02/10/21 Time: 07:08 Allergies/Adverse Reactions: Patient Allergies No Known Allergies Allergy (Verified 02/08/21 02:22) Height: 1.8 m Weight: 63.503 kg Patient Problems: Current Active Problems ST elevation myocardial infarction (STEMI) (Acute) Coronary artery disease (Acute) Status post coronary artery stent placement (Acute) Hypertension (Chronic) - VTE Risk Labs: VTE Related Lab Results Hgb 13.0 g/dL (14.1-18.0) L 02/08/21 06:20 Hct 39.0 % (42.0-52.0) L 02/08/21 06:20 Plt Count 155 K/mm3 (142-424) D 02/08/21 06:20 BUN 13 mg/dl (9-20) 02/08/21 06:20 Creatinine 0.60 mg/dl (0.66-1.25) L 02/08/21 06:20 Estimated Creat Clear 74 mL/min (50-200) 02/08/21 06:20 Was VTE Risk Assessment Performed: Yes VTE Score: 3 VTE Risk Level: Low Risk - Prophylaxis VTE Prophylaxis Ordered?: Yes Types of VTE Prophylaxis: TEDS Knee High Location of Applied Device: Bilateral Lower Extremeties
[2021-02-10 08:00] VITALS: BP 158/73; PULSE 76; RESP 17; TEMP 36.7; O2SAT 96
--- NOTE | 2021-02-10 08:27 | HMH.ACPN2 ---
<Aracelis Holder - Last Filed: 02/10/21 08:27> Internal Medicine - PN: Subj *Date: 02/10/21 *Time: 08:05 Interval history: Pt resting in bed watching tv. He feels well and has no complaint. He has had no further chest pain or SOB. He is tolerating po well. He had normal BM this am and is voiding qshift. He is up ad daniel without difficulty and eager for discharge. Exam Vital signs and Labs for Last 24 Hours: Temp Pulse Resp BP Pulse Ox 97.9 F 72 16 131/71 93 L 02/10/21 04:00 02/10/21 04:00 02/10/21 04:00 02/10/21 04:00 02/10/21 04:00 I & O for Last 24 hours: Intake & Output 02/07/21 02/08/21 02/09/21 02/10/21 11:59 11:59 11:59 11:59 Intake Total 480 / 480 960 / 960 960 / 960 Balance 480 / 480 960 / 960 960 / 960 Weight 148 lb 147 lb 5 oz 140 lb - Constitutional no acute distress - *Routine HEENT Exam Head: Present: normocephalic, atraumatic ENT: Present: mucous membranes moist - *Routine Respiratory Exam Absent: respiratory distress Comments: good air movement with bibasilar fine rales - *Routine Cardiovascular Exam Present: RRR - *Routine Abdominal Exam Present: soft, normoactive bowel sounds. Absent: tenderness, distended, guarding, rigid, mass - *Routine Extremities Exam Present: full ROM, pulses intact. Absent: edema, calf tenderness, extremity cold to touch - *Routine Neurological Exam Present: alert, oriented X3, moving all extremities, normal speech Assessment and Plan (1) ST elevation myocardial infarction (STEMI) Status: Acute Category: Medical Code(s): I21.3 - ST elevation (STEMI) myocardial infarction of unspecified site (2) Coronary artery disease Status: Acute Category: Medical Code(s): I25.10 - Atherosclerotic heart disease of [place] coronary artery without angina pectoris (3) Status post coronary artery stent placement Status: Acute Category: Surgical Code(s): Z95.5 - Presence of coronary angioplasty implant and graft (4) Hypertension Status: Chronic Category: Medical Code(s): I10 - Essential (primary) hypertension - Assessment and plan all Dx Assessment and Plan for all problems:: Await Echo. Further per Dr. Tariq. <Jose Tariq - Last Filed: 02/10/21 10:09> Internal Medicine - PN: Subj *Date: 02/10/21 *Time: 10:06 Exam Vital signs and Labs for Last 24 Hours: Temp Pulse Resp BP Pulse Ox 98.0 F 76 17 158/73 H 96 02/10/21 08:00 02/10/21 08:00 02/10/21 08:00 02/10/21 08:00 02/10/21 08:00 I & O for Last 24 hours: Intake & Output 02/07/21 02/08/21 02/09/21 02/10/21 11:59 11:59 11:59 11:59 Intake Total 480 / 480 960 / 960 1440 / 1440 Balance 480 / 480 960 / 960 1440 / 1440 Weight 148 lb 147 lb 5 oz 140 lb Assessment and Plan (1) ST elevation myocardial infarction (STEMI) Status: Acute Category: Medical Code(s): I21.3 - ST elevation (STEMI) myocardial infarction of unspecified site (2) Coronary artery disease Status: Acute Category: Medical Code(s): I25.10 - Atherosclerotic heart disease of [place] coronary artery without angina pectoris (3) Status post coronary artery stent placement Status: Acute Category: Surgical Code(s): Z95.5 - Presence of coronary angioplasty implant and graft (4) Hypertension Status: Chronic Category: Medical Code(s): I10 - Essential (primary) hypertension - Assessment and plan all Dx Assessment and Plan for all problems:: Patient seen and examined. He looks and feels good. He is to have an echocardiogram today and likely discharge home after cleared by cardiology.
--- NOTE | 2021-02-10 10:09 | CA_ITS ---
APPROVED REPORT EXAM: Comprehensive 2D, Doppler, and color-flow Echocardiogram Die Maintenance Technician: Kathie Ramachandran, RT(R) Ht: 5 ft 10 in Wt: 140lbs BSA: 1.79 BP: 169/88 mmHg Indications: STEMI, CP, COPD, ex smoker, SOB, HTN, CAD, 3 stents 02/08 2D Dimensions LVOT 2.19 cm (M/F) 1.5-2.5 M-Mode Dimensions RVDd 1.92 cm (0.9-2.6) LA Diam 3.12 cm (1.9-4.0) LVDd 4.45 cm (3.5-5.7) Ao Diam 2.33 cm (2.0-3.7) LVDs 3.49 cm (3.5-5.7) IVSd 0.93 cm (0.6-1.1) PWd 0.78 cm (0.6-1.1) EF (Teich) 44.00% FS 21.60% EDV (Teich) 90.10 mL ESV (Teich) 50.50 mL LV Diastology E Decel Time 227.00 (160-240 msec) E/A Ratio 0.8 MED E' 9.20 (< 7 cm/sec) E'/MED E' Ratio 10.88 (>14) LAT E' 8.10 (<10 cm/sec) E/LAT E' Ratio 12.36 (>14) Aortic Valve LVOT Max 105.00 (70-110 cm/s) LVOT VTI 23.90 cm AoV Peak Kishan. 175.00 (50-130 cm/s) AO Peak GR. 12.30 mmHg AO Mean GR. 6.00 (<5 mmHg) AO VTI 32.94 (18-25 cm) TAE (VTI) 2.73 (2.5-4.5 cm2) Mitral Valve MV E Max Kishan. 100.00 (40-130 cm/s) MV A Velocity 119.00 (40-130 cm/s) E/A Ratio 0.84 MV Decel. Time 227.00 (160-240 ms) MV PHT 66.00 ms Left Ventricle Technically difficult study because of the patient fact in poor acoustic windows. Left atrium is mildly enlarged, left ventricle is normal size, mild concentric left ventricular hypertrophy, visually estimated ejection fraction approximately 45%, there is moderate hypokinesis involving the inferior and posterior basal wall. Endocardial surfaces are poorly visualized, grade 1 diastolic dysfunction seen without tissue Doppler evidence of raise left atrial pressure. Right Ventricle Right atrium and right ventricle are normal size and contractility. Aortic Valve Aortic valve is heavily thickened and calcified leaflet morphology is not well visualized, Doppler is not indicated above aortic stenosis, there is no significant aortic insufficiency seen. Mitral Valve Mitral valve leaflets are grossly normal, there is mild mitral regurgitation. Tricuspid Valve Tricuspid valve grossly normal, there is mild tricuspid regurgitation, tricuspid regurgitation jet velocity is inadequate for calculation of the right ventricular systolic pressure. Pulmonic Valve Pulmonic valve is poorly visualized. Great Vessels Aortic root is normal size. Inferior vena cava is normal size with normal inspiratory collapse. Pericardium No significant pericardial effusion noted. Conclusion 1. Mildly enlarged left atrium, normal left ventricular size, mild concentric left ventricular hypertrophy, visually estimated ejection fraction 45% with multiple segmental wall motion abnormality described above, grade 1 diastolic dysfunction seen without tissue Doppler evidence of raise left atrial pressure. 2. Thickened and calcified aortic valve without Doppler evidence of aortic stenosis or significant aortic insufficiency. 3. Mild mitral and tricuspid regurgitation. 4. Inferior vena cava is normal size with normal inspiratory collapse. Electronically signed by : Aravind Jones MD 02/10/2021 21:37:29
--- NOTE | 2021-02-10 11:32 | HMH.CNCARD ---
History of Present Illness Consult date: 02/10/21 Requesting physician: Jose Tariq Consult reason: chest pain Chief complaint: chest pain History of present illness: This is a 71-year-old white gentleman who presented to the emergency department with chest pain. The patient states that he had sudden onset of pressure and tightness in his chest that radiated underneath of his bilateral arms. He describes this as a pressure like sensation. It was associated with shortness of breath, nausea and diaphoresis. The patient states that he went to the bathroom and the diaphoresis was profound. He checked his blood pressure and it was low in the 80s over 40s. He then called EMS and had them transported him here to the hospital. The patient's EKG showed a STEMI and he was taken directly to the cardiac catheterization laboratory and had 3 stents placed. Since then the patient denies any recurrence of the chest pain or pressure. He denies any shortness of breath or edema. He denies any fever, chills, nausea, vomiting, diarrhea, PND or orthopnea. The patient reports that he had 3 stents placed back in 2004 and then had more stents placed in 2007. Since that time he has continued to see cardiology at the [facility]. He also reports having PAD with stenting to his right lower extremity as well but states he has not had any issues with his heart or legs for quite some time until the other night when he had sudden onset of chest pain. He had been taking Plavix prior to coming into the hospital but ran out of it a few weeks ago. He is now on Brilinta and aspirin for dual antiplatelet therapy. I have had a long discussion with the patient about making sure he stays compliant with his dual antiplatelet therapy to avoid stent thrombosis. The patient verbalizes understanding. [facility] shows: The left main artery Has an ostial 10% stenosis The left anterior descending artery Has proximal 10 to 20% stenoses with mid vessel 10 to 20% stenoses. The circumflex artery Is a nondominant yet still large vessel giving rise to a moderate to large ramus intermedius which has a proximal 30 to 40% concentric stenosis. The circumflex artery itself has proximal 20 to 30% stenosis The right coronary artery Is a large dominant vessel initially proximally thrombosed. Following aspiration and drug-eluting stenting the ostial proximal mid and distal right coronary is widely patent with excellent FILIPPO III inline flow to the posterior descending artery and posterior lateral branch The NUGENT ventriculogram reveals Normal 60% The left ventricular end-diastolic pressure 15 mmHg IMPRESSION Acute thrombosis of the proximal dominant right coronary Successful aspiration followed by drug-eluting stent deployment to the ostial proximal mid distal dominant right coronary artery on a continuous manner reducing the stenosis to less than 10% throughout Normal ejection fraction Mildly elevated LVEDP PLAN 1. Brilinta 90 twice daily plus aspirin 81 mg daily 2. Cardiac rehabilitation 3. A formal echocardiogram should be obtained on Wednesday prior to patient being discharged home 4. Avoidance of tobacco products 5. QUENTIN inhibitor is beta-blockers once hemodynamically stable to tolerate 6. LDL less than 55 7. Supportive care [facility] History I have reviewed the patient's past medical history: Yes Medical History: Reports:: Chronic Obstructive Pulmonary Disease (COPD), Coronary Artery Disease, Hyperlipidemia, Hypertension Denies:: Asthma, Atrial Fibrillation, Congestive Heart Failure, Diabetes Mellitus Type 1, Diabetes Mellitus Type 2, Gastroesophageal Reflux Disease(GERD), Heart Murmur *Have you ever received a pneumonia vaccine?: Yes *Have you received a flu vaccine this season?: Yes Other Surgeries: Yes: Cardiac Catheterization, Other Amputation: No Fractures: No - *Social History Smoking Status: Former smoker Tobacco Type: cigarettes Smoking End Date: 2007 Alcohol Intake: current A
[2021-02-10 11:41] VITALS: BP 153/79; PULSE 72; RESP 15; TEMP 36.8; O2SAT 95
[2021-02-10 12:00] VITALS: PULSE 80
[2021-02-10 13:14] LABS: Chloride 97 mmol/L (98-107)
[2021-02-10 13:15] LABS: Potassium 5.1 mmoL/L (3.5-5.1); Sodium 135 mmol/L (136-145)
[2021-02-10 13:17] LABS: Anion Gap 10.1 mEq/L (5-15); Blood Urea Nitrogen 12 mg/dl (9-20); Carbon Dioxide 33 mmol/L (22.0-30.0); Creatinine Clearance Estimated 61 mL/min (50-200); Estimated Glomerular Filt Rate 83 ml/min (>60); GFR (African American) 101 ML/MIN (>60)
[2021-02-10 13:18] LABS: Calcium 9.1 mg/dl (8.4-10.2); Chol/HDL Ratio 2.3 (1-3.5); Cholesterol 143 mg/dl (140-200); Glucose 111 mg/dl (74-100); HDL Cholesterol 62 mg/dl (40-60); Triglycerides 108 mg/dl (30-150); VLDL Cholesterol 22 mg/dL (0-40)
[2021-02-10 13:29] LABS: Direct LDL Cholesterol 63.07 mg/dL (100-129)
--- NOTE | 2021-02-10 14:24 | PC.NURSE ---
LIPITOR 40 MG PO ADMIN PER INSTRUCTIONS FROM [facility] FROM PHARMACY
--- NOTE | 2021-02-10 14:38 | HMH.PHACLD ---
Archie Mosher has received discharge medication counseling on the following medications: PATIENT WAS DISCHARGED WITH PRESCRIPTIONS FOR LISINOPRIL 5 MG DAILY #30 0RF, BISOPROLOL 5 MG DAILY #30 ORF, ATORVASTATIN 40 MG HS #30 ORF, AND ASPIRIN 81 MG EC DAILY #30 ORF. MD SIGNED PRINTED SCRIPTS AND PATIENT WILL FILL AT [facility] IN THE AM. ATORVASTATIN DOSE GIVEN EARLY TODAY. BRILINTA 90 MG BID PRESCRIPTION WAS FILLED AT CLINIC PHARMACY AND PATIENT TO RESPIRATORY THERAPIST ASSISTANT UPON DISCHARGE.
--- NOTE | 2021-02-11 15:58 | HMH.DCSUM ---
General - General Admission date:: 02/08/21 <Jose Tariq - 02/12/21 19:08> 02/08/21 <EvaristoJia - 02/11/21 16:01> Discharge date: 02/10/21 <EvaristoJia - 02/11/21 16:01> HPI HPI: The 61-year-old male with history of CAD status post 3 LAD stents in 2004 who presents to the emergency department with 45 minutes of pressure like bilateral chest pain associated with shortness of breath. The patient reports all day he has not felt quite right but took a nap and woke up with the chest pain which was also associated with nausea. The patient is on Plavix but reports he has not taken it for a few weeks. He has not taken his other medications as well. On EMS arrival EKG was concerning for STEMI. The patient was given 324 of aspirin, 1 of nitro, morphine. The patient drinks alcohol daily. Denies abdominal pain, back pain, fever, chills. The patient is a 61-year-old male with history of CAD who presents to the emergency department with 45 minutes of pressure-like chest pain associated with shortness of breath and nausea. Differential diagnosis includes STEMI, NSTEMI, unstable angina. EMS called in route with an EKG concerning for STEMI which they sent. The patient had obvious elevation in 2, 3, aVF with reciprocal changes. The EKG was sent to cardiology who agreed and the Information Assistant was activated. EMS gave aspirin, nitro, morphine prior to arrival. On arrival the patient is overall well-appearing with stable blood pressure and heart rate in the high 50s. He was placed on pads and given heparin and Brilinta according to cardiology recommendations. Was also given another nitro for continued pain. Repeat EKG concerning for STEMI. The patient was taken to the Information Assistant for further management. (above as per ER physician) The patient was taken to the supervisor laboratory animal facility and 3 stents were placed. This am, he is feeling much better and has been up moving around his room without any chest pain or shortness of breath. He is eating well and wants to go home. <Jia Loera - 02/11/21 16:01> Hospital Course Hospital Course: The patient tolerated his heart cath and stenting procedure well. Cardiology wanted to start him on Brilinta 90 mg twice daily plus an 81 mg aspirin a day. They recommended cardiac rehabilitation and wanted the patient kept for 48 hours and have an echo before discharge. They felt he should have an QUENTIN inhibitor and beta-blockers once hemodynamically stable to tolerate. The patient did well and continued to have no complaints of chest pain or shortness of breath. He had an echo on 02/10/2021 which showed an EF of 45% with grade 1 diastolic dysfunction. There was a thickened and calcified aortic valve without aortic stenosis. Cardiology felt he was stable to be discharged home and will need to follow-up with them in their office in 1 week. <Jia Loera - 02/11/21 16:01> Objective Vital signs: Temp Pulse Resp BP Pulse Ox 98.2 F 80 15 153/79 H 95 02/10/21 11:41 02/10/21 12:00 02/10/21 11:41 02/10/21 11:41 02/10/21 11:41 <ChandniJose Nemesio - 02/12/21 19:08> Temp Pulse Resp BP Pulse Ox 98.2 F 80 15 153/79 H 95 02/10/21 11:41 02/10/21 12:00 02/10/21 11:41 02/10/21 11:41 02/10/21 11:41 <Jia Loera - 02/11/21 16:01> Narrative: - Constitutional no acute distress - *Routine HEENT Exam Head: Present: normocephalic, atraumatic ENT: Present: mucous membranes moist - *Routine Respiratory Exam Absent: respiratory distress Comments: good air movement with bibasilar fine rales - *Routine Cardiovascular Exam Present: RRR - *Routine Abdominal Exam Present: soft, normoactive bowel sounds. Absent: tenderness, distended, guarding, rigid, mass - *Routine Extremities Exam Present: full ROM, pulses intact. Absent: edema, calf tenderness, extremity cold to touch - *Routine Neurological Exam Present: alert, oriented X3, moving all extremities, normal
== END 2021-02-10 14:30 | disposition home or self-care (01) | DRG 247 ==
LOC: ER 01:03 → CATHLAB 01:12 → 2ND 01:18
PROVIDERS: Nurse Practitioner Family; Admitting Provider Family Medicine; Emergency Provider Emergency Medicine; Referring Provider Internal Medicine; Visit Provider Family Medicine
PROC: 02C03ZZ Extirpation of Matter from Coronary Artery, One Artery, Percutaneous Approach (ICD-10-PCS; principal; 2021-02-08 00:30)
DX: Z20.822 Contact with and (suspected) exposure to COVID-19; I10 Essential (primary) hypertension; E78.5 Hyperlipidemia, unspecified; I25.10 Atherosclerotic heart disease of native coronary artery without angina pectoris; J44.9 Chronic obstructive pulmonary disease, unspecified; I21.29 ST elevation (STEMI) myocardial infarction involving other sites; Z95.820 Peripheral vascular angioplasty status with implants and grafts; Z95.5 Presence of coronary angioplasty implant and graft; Z87.891 Personal history of nicotine dependence
CPT/HCPCS: 36415; 80048; 80053; 80061; 84484; 85025; 85347; 92941; 93005; 93306; 93458; 96374; 99152; 99153; 99284; C1725; C1769; C1874; C1876; C9606; J1644; Q9967; U0003

== ENCOUNTER → 2021-02-17 11:31 | Outpatient (CLI) | payer OTHER, MEDICARE, SELFPAY ==
--- NOTE | 2021-02-17 11:34 | CA_ITS ---
APPROVED REPORT Law Librarian: Dayna Cochran RDCS Indications Hematoma RECENT RIGHT RADICAL CATH HEMATOMA/KNOT AT SITE Findings No evidence of pseudoaneurysm, hematoma, or AV fistula of the right wrist. Conclusion No evidence of pseudoaneurysm, hematoma, or AV fistula of the right wrist. Electronically signed by : Nomi Smalls MD 02/17/2021 16:53:02
== END ==
PROVIDERS: PCP Family Medicine; Visit Provider Nurse Practitioner Family
DX: I77.0 Arteriovenous fistula, acquired (principal); M79.89 Other specified soft tissue disorders; Z95.5 Presence of coronary angioplasty implant and graft; Z98.890 Other specified postprocedural states
CPT/HCPCS: 93931

== ENCOUNTER 2021-02-25 10:02 | Outpatient (RCR) | payer OTHER, MEDICARE, SELFPAY | END 2021-05-14 10:41 | disposition home or self-care (01) | LOC: PT 10:02 | PROVIDERS: Visit Provider Internal Medicine | DX: I25.10 Atherosclerotic heart disease of native coronary artery without angina pectoris (principal); Z95.5 Presence of coronary angioplasty implant and graft | CPT/HCPCS: 93798 ==

== ENCOUNTER → 2021-03-19 10:49 | Outpatient (CLI) | payer OTHER, SELFPAY ==
--- NOTE | 2021-03-19 10:58 | CA_ITS ---
APPROVED REPORT EXAM: Comprehensive 2D, Doppler, and color-flow Echocardiogram Ndt Inspector: Marilyn Tellez RVT Ht: 5 ft 2 in Wt: 146lbs BSA: 1.67 BP: 137/60 mmHg Indications: CAD,CM,STENT,HX STEMI,COPD,HTN,HLD,EX SMOKER TDS-PT BODY HABITUS 2D Dimensions LVOT 2.08 cm (M/F) 1.5-2.5 M-Mode Dimensions RVDd 1.91 cm (0.9-2.6) LA Diam 3.95 cm (1.9-4.0) LVDd 5.06 cm (3.5-5.7) Ao Diam 3.46 cm (2.0-3.7) LVDs 3.92 cm (3.5-5.7) IVSd 0.90 cm (0.6-1.1) PWd 0.67 cm (0.6-1.1) EF (Teich) 45.10% FS 22.50% EDV (Teich) 121.60 mL TAPSE 1.60 (<1.7) ESV (Teich) 66.70 mL LV Diastology E Decel Time 250.00 (160-240 msec) E/A Ratio 0.9 MED E' 5.90 (< 7 cm/sec) E'/MED E' Ratio 17.25 (>14) LAT E' 7.90 (<10 cm/sec) E/LAT E' Ratio 12.89 (>14) Aortic Valve LVOT Max 97.00 (70-110 cm/s) LVOT VTI 21.62 cm AoV Peak Kishan. 183.00 (50-130 cm/s) AO Peak GR. 13.40 mmHg AO Mean GR. 6.50 (<5 mmHg) AO VTI 43.84 (18-25 cm) TAE (VTI) 1.68 (2.5-4.5 cm2) Mitral Valve MV E Max Kishan. 102.00 (40-130 cm/s) MV A Velocity 117.00 (40-130 cm/s) E/A Ratio 0.87 MV Decel. Time 250.00 (160-240 ms) MV PHT 73.00 ms Pulmonary Valve PV Peak Velocity 76.00 (50-150 cm/s) Tricuspid Valve TR P. Velocity 184.00 cm/s RAP Estimate 10.00 mmHg RVSP 23.60 mmHg Left Ventricle Left atrium is mildly enlarged, left ventricle is normal size, mild concentric left ventricular hypertrophy, visually estimated ejection fraction 55% with no regional wall motion abnormality, grade 1 diastolic dysfunction seen with tissue Doppler evidence of raise left atrial pressure. Right Ventricle Right atrium and right ventricle are mildly enlarged with normal contractility. Aortic Valve Aortic valve is thickened and calcified without Doppler evidence of aortic stenosis, there is no significant aortic insufficiency. Mitral Valve Mitral valve has mitral annular calcification which extends in both anterior and posterior mitral leaflet, there is no mitral stenosis, there is mild mitral regurgitation. Tricuspid Valve There is mild tricuspid regurgitation noted, tricuspid regurgitation jet velocity is inadequate for calculation of the right ventricular systolic pressure. Pulmonic Valve Pulmonic valve is poorly visualized. Great Vessels Aortic root and ascending aorta appears to be mildly enlarged. Inferior vena cava is normal size with normal inspiratory collapse. Pericardium No significant pericardial effusion noted. Conclusion 1. Mildly enlarged left atrium, normal left ventricular size, mild concentric left ventricular hypertrophy, visually estimated ejection fraction 55% with no regional wall motion abnormality, grade 1 diastolic dysfunction seen with tissue Doppler evidence of raise left atrial pressure. 2. Thickened and calcified aortic valve without Doppler evidence of aortic stenosis or aortic insufficiency. 3. Mild mitral and tricuspid regurgitation. 4. No significant pericardial effusion noted. Inferior vena cava is normal size with normal inspiratory collapse. Electronically signed by : Aravind Jones MD 03/20/2021 16:37:46
== END ==
PROVIDERS: Visit Provider Chiropractor
DX: I25.10 Atherosclerotic heart disease of native coronary artery without angina pectoris (principal)
CPT/HCPCS: 93306

== ENCOUNTER 2021-09-21 10:45 | Emergency (ER) | payer OTHER, SELFPAY ==
[2021-09-21 12:42] VITALS: BP 0/0; PULSE 0; RESP 0; TEMP -17.7; TEMP 0; O2SAT 0
--- NOTE | 2021-09-21 12:42 | PC.NURSE ---
pt approached registration desk and states if i could wait until today i can wait another day and see my pcp. pt left without being seen by a provider.
== END 2021-09-21 12:46 | disposition left against medical advice (07) ==
LOC: ER 12:45
PROVIDERS: Emergency Provider Nurse Practitioner Family
DX: R10.9 Unspecified abdominal pain (principal); I65.23 Occlusion and stenosis of bilateral carotid arteries; I42.9 Cardiomyopathy, unspecified; M79.89 Other specified soft tissue disorders; Z53.21 Procedure and treatment not carried out due to patient leaving prior to being seen by health care provider; Z79.52 Long term (current) use of systemic steroids; Z79.82 Long term (current) use of aspirin; Z79.899 Other long term (current) drug therapy
CPT/HCPCS: 96361; 96374; 99211

== ENCOUNTER 2021-11-08 19:51 | Emergency (ER) | payer OTHER, SELFPAY ==
[2021-11-08 20:07] VITALS: BP 142/76; PULSE 77; RESP 18; TEMP 36.9; O2SAT 96; BMI 20.7
--- NOTE | 2021-11-08 20:34 | HMH.EDUTC ---
[facility] [place] Impression: Bitten by parrot, initial encounter Avulsion of skin of right hand Qualifiers: Encounter type: initial encounter Qualified Code(s): S61.401A - Unspecified open wound of right hand, initial encounter Disposition: Home, Self-Care Condition on Discharge: Good Instructions: DI for Animal Bites Additional Instructions: Keep the wounds clean and dry. Follow up with your regular doctor. Take the antibiotics as directed and apply the topical antibiotics as directed. Watch the wound for signs of worsening infection, such as worsening redness, drainage, swelling, etc. GO TO THE ER FOR ANY WORSENING SYMPTOMS Prescriptions: Mupirocin [Bactroban 2% Ointment 22gm tube] 1 applicatio TP TID 7 Days #1 gm Transmission Status: Received by [facility] Doxycycline Monohydrate [Doxycycline Steuben 100mg Tab] 100 mg PO Q12 10 Days #20 tab Transmission Status: Received by [facility] Referrals: Provider,Referral, [Primary Care Provider] - Time of Disposition: 20:59 Medical Decision Making - Medical Records Medical records reviewed: No: I reviewed the patient's medical records. - Maninder Inquiry Pt receiving controlled substance: No Vital Signs: 11/08/21 20:07 11/08/21 21:11 Temperature 98.4 F 98.4 F Temperature Source Oral Pulse Rate 77 Pulse Rate [Left] 77 Respiratory Rate 18 18 Blood Pressure 142/76 H Blood Pressure [Right Arm] 142/76 H Blood Pressure Mean [Right Arm] 98 02 Sat by Pulse Oximetry 96 Medical Decision Narrative: The wound was lavaged very well and examined closely for deep tissue damage and foreign body, none noted, steri strips were applied afterwards. [facility] [place] General Stated complaint: AO 11/08@0830 bird bite Rr hAND Time Seen by Provider: 11/08/21 20:34 Mode of Arrival: Ambulatory Source of Information: Patient Limitations: No Limitations Description of Symptoms (Recalled from Triage Doc. by RN): pt was bitten on right hand by his pet bird HEENT Symptoms (Recalled from RN notes): No Resp Symptoms (Recalled from RN notes): No Skin Symptoms (Recalled from RN notes): Yes MS Symptoms (Recalled from RN notes): No Functional Status (Recalled from RN notes): wnl - History of Present Illness Provider Complaint: He was bit by his large macaw parrot this morning on the back of his hand. This occured this morning at around 0900. He came in this evening because the wound started to bleed and he was having trouble getting it to stop. His tetanus immunization is up to date. - Related Data Home Medications Medication Instructions Recorded Confirmed methylprednisolone 4 mg tablets in 4 mg PO DIRECTED PRN 02/17/21 07/16/21 a dose pack Previous Rx's Medication Instructions Recorded Methocarbamol [Robaxin 500mg Tab] 500 mg PO BIDP PRN #30 tab 04/04/20 Cyclobenzaprine HCl 10 mg PO BIDP PRN #30 tab 04/08/20 [Cyclobenzaprine 10mg Tab*] Aspirin [Aspirin 81mg EC Tab] 81 mg PO DAILY #30 tablet. 02/10/21 Atorvastatin Calcium [Lipitor 40mg 40 mg PO HS #30 tab 02/10/21 Tablet*] Ticagrelor [Brilinta 90mg 90 mg PO BID #60 tab 02/10/21 Tablet] bisoproloL fumarate [Zebeta 5mg 5 mg PO DAILY #30 tab 02/10/21 tablet] lisinopriL [Zestril 5mg 5 mg PO DAILY #30 tab 02/10/21 Tablet] nitroglycerin 0.4 mg sublingual 0.4 mg SUBLINGUAL Q5M PRN #20 tab 02/17/21 tablet Doxycycline Monohydrate 100 mg PO Q12 10 Days #20 tab 11/08/21 [Doxycycline Steuben 100mg Tab] Mupirocin [Bactroban 2% Ointment 1 applicatio TP TID 7 Days #1 gm 11/08/21 22gm tube] Allergies Allergy/AdvReac Type Severity Reaction Status Date / Time No Known Allergies Allergy Verified 11/08/21 20:10 - Worker's Comp Is this a Worker's Comp case?: No [facility] History - Hepatitis A Screen Attestation statement:: This patient has been screened for Hepatitis A risk factors. I have reviewed the patient's
[2021-11-08 21:11] VITALS: BP 142/76; PULSE 77; RESP 18; TEMP 36.9
== END 2021-11-08 21:13 | disposition home or self-care (01) ==
PROVIDERS: Emergency Provider Nurse Practitioner Family
DX: S61.451A Open bite of right hand, initial encounter (principal); W61.11XA Bitten by macaw, initial encounter
CPT/HCPCS: 99212; G0463

== ENCOUNTER 2021-12-19 05:56 | Emergency (ER) | payer OTHER, SELFPAY ==
[2021-12-19] VITALS (10 sets, daily range): BP systolic 109–175; BP diastolic 55–91; PULSE 90–113; RESP 16–25; TEMP 36.7–36.9; O2SAT 92–98; BMI 20.5
--- NOTE | 2021-12-19 05:51 | ECG_ITS ---
APPROVED REPORT Exam: Resting ECG HR:109 bpm ECG Measurements Heart Rate 109 AXES TN 162 P 85 QRSd 89 QRS -26 QT 308 T 81 QTc 372 Conclusion SINUS TACHYCARDIA Right atrial abnormality Incomplete RBBB Late r wave progression ABNORMAL ECG UNCONFIRMED REPORT Electronically signed by : Yfn Sandhu MD 12/19/2021 15:35:31
--- NOTE | 2021-12-19 06:02 | XR_ITS ---
FINAL REPORT CLINICAL HISTORY: chest pain, soa COMPARISON: July 21, 2017 FINDINGS: The heart size is normal. The mediastinum is normal. The lungs are hyperinflated consistent with COPD. There is mild scarring. There are no pleural effusions. There is no pneumothorax. There is no osseous abnormality. IMPRESSION: No acute cardiopulmonary process Reviewed, Interpreted and Dictated by Hector Harden III, MD Transcribed by Reuben Gonsalves Authenticated and [facility]
[2021-12-19 06:11] LABS: Basophils # 0.3 K/mm3 (0-0.2); Basophils % 1.6 % (0.1-2.0); Eosinophils # 0.3 K/mm3 (0.0-0.4); Eosinophils % 1.8 % (0.1-12.0); Hematocrit 47.7 % (42.0-52.0); Lymphocytes # 0.9 K/mm3 (0.7-4.5); Lymphocytes % 4.6 % (10-50); Mean Corpuscular HGB Conc 33.4 g/dL (31.8-35.4); Mean Corpuscular Hemoglobin 30.9 pg (27.0-31.2); Mean Corpuscular Volume 92.4 fl (80-94); Monocytes # 0.8 K/mm3 (0.1-1.0); Monocytes % 4.1 % (1.7-9.3); Neutrophils # 16.7 K/mm3 (1.8-7.8); Neutrophils % 87.9 % (37.0-80.0); Platelet Count 276 K/mm3 (142-424); Red Blood Count 5.17 M/mm3 (4.60-6.20); Red Cell Distribution Width 13.6 % (11.5-17.5)
[2021-12-19 06:16] LABS: Chloride 88 mmol/L (98-107)
[2021-12-19 06:17] LABS: Potassium 4.5 mmoL/L (3.5-5.1); Sodium 125 mmol/L (136-145)
[2021-12-19 06:19] LABS: Alanine Aminotransferase 19 U/L (12-78); Albumin Level 4.3 g/dl (3.5-5.0); Alkaline Phosphatase 80 U/L (38-126); Anion Gap 10.5 mEq/L (5-15); Aspartate Amino Transferase 32 U/L (17-59); Bilirubin,Direct 0.2 mg/dl (0.0-0.4); Bilirubin,Indirect 1.8 mg/dL (0.0-0.9); Bilirubin,Unconjugated 1.8 mg/dL (0.0-1.1); Blood Urea Nitrogen 12 mg/dl (9-20); Carbon Dioxide 31 mmol/L (22.0-30.0); Coronavirus 19, PCR Not Detected (NotDetected); Creatinine Clearance Estimated 62 mL/min (50-200); Estimated Glomerular Filt Rate 133 ml/min (>60); GFR (African American) 161 ML/MIN (>60); Glucose 110 mg/dl (74-100); Influenza A, PCR Not Detected (NotDetected); Influenza B, PCR Not Detected (NotDetected); MANUAL DIFFERENTIAL MANUAL DIFFERENTIAL (MANUAL DIFF); Total Protein,Serum 7.6 g/dl (6.3-8.2)
[2021-12-19 06:20] LABS: Magnesium 1.5 mg/dl (1.6-2.3)
[2021-12-19 06:29] LABS: C-Reactive Protein 243.6 mg/L (0-4); NT Pro Brain Natriuretic Pep. 303 pg/mL (0-125)
--- NOTE | 2021-12-19 06:31 | PC.NURSE ---
RAD at BS
[2021-12-19 06:40] LABS: Troponin I < 0.01 ng/ml (0.00-0.034)
[2021-12-19 06:48] LABS: Erythrocyte Sedimentation Rate 9 mm/hr (0-20)
[2021-12-19 06:49] LABS: Lymphocytes % 7 % (10-50); Monocytes % 8 % (2-9); Neutrophils % 84 % (42-76); Platelet Estimate Normal; RBC Morphology Normal; Total Cells Counted 100
[2021-12-19 07:07] LABS: Procalcitonin 0.235 ng/mL (0.0-2.0)
--- NOTE | 2021-12-19 07:08 | HMH.EDCP ---
ED Disposition Clinical Impression: COPD (chronic obstructive pulmonary disease) with acute bronchitis, Pleurisy Disposition: Home, Self-Care Condition on Discharge: Good Instructions: DI for Pleurisy Additional Instructions: fluids and use meds and see card and pcp for follow up Prescriptions: levoFLOXacin [Levaquin 500mg tab] 500 mg PO DAILY #7 tab Transmission Status: Pending to [facility] predniSONE [Prednisone 20mg Tab] 20 mg PO BID #10 tab Transmission Status: Pending to [facility] Referrals: Provider,Referral, [Primary Care Provider] - - Critical Care Critical Care Time: No Attestation: On 12/19/21, the high probability of a clinically significant, sudden or life threatening deterioration of the following system(s) required my full and direct attention, intervention and personal management. The time I documented below is in addition to time spent performing reported procedures but includes the following listed in this critical care notation. Medical Decision Making - Medical Records Medical records reviewed: Yes: I reviewed the patient's medical records. - Maninder Inquiry Pt receiving controlled substance: No Vital Signs: 12/19/21 05:56 12/19/21 06:30 12/19/21 07:00 Temperature 98.0 F Temperature Source Oral Pulse Rate 96 H 100 H Pulse Rate [Right] 113 H Respiratory Rate 25 H 17 20 Blood Pressure 126/64 113/63 Blood Pressure [Right Arm] 175/91 H Blood Pressure Mean 85 Blood Pressure Mean [Right Arm] 119 Blood Pressure Source [Right Arm] Automatic Cuff 02 Sat by Pulse Oximetry 92 L 96 96 Oxygen Delivery Method Room Air Nasal Cannula Oxygen Flow Rate (LPM) 2 12/19/21 08:00 12/19/21 08:30 12/19/21 09:00 Temperature Temperature Source Pulse Rate 90 93 H 94 H Pulse Rate [Right] Respiratory Rate 18 20 20 Blood Pressure 114/55 L 112/60 119/67 Blood Pressure [Right Arm] Blood Pressure Mean 65 69 81 Blood Pressure Mean [Right Arm] Blood Pressure Source [Right Arm] 02 Sat by Pulse Oximetry 93 L 92 L 96 Oxygen Delivery Method Room Air Room Air Room Air Oxygen Flow Rate (LPM) 12/19/21 09:30 12/19/21 10:00 12/19/21 10:30 Temperature Temperature Source Pulse Rate 95 H 94 H 94 H Pulse Rate [Right] Respiratory Rate 22 16 20 Blood Pressure 124/71 119/74 109/64 L Blood Pressure [Right Arm] Blood Pressure Mean 91 95 86 Blood Pressure Mean [Right Arm] Blood Pressure Source [Right Arm] 02 Sat by Pulse Oximetry 98 97 93 L Oxygen Delivery Method Nasal Cannula Nasal Cannula Oxygen Flow Rate (LPM) 2 2 - Lab Data Lab results reviewed: Yes: I reviewed the patient's lab results. Lab Results 12/19/21 05:59: ESR 9 12/19/21 05:59: Troponin I < 0.01, C-Reactive Protein 243.6 H, Procalcitonin 0.235 12/19/21 05:59: SARS-CoV-2 (PCR) Not detected, Influenza A Untype (PCR) Not detected, Influenza Type B (PCR) Not detected 12/19/21 05:59: WBC 19.0 H, RBC 5.17, Hgb 16.0, Hct 47.7, MCV 92.4, MCH 30.9, MCHC 33.4, RDW 13.6, Plt Count 276, MPV 8.0, Neut % (Auto) 87.9 H, Lymph % (Auto) 4.6 L, [place] % (Auto) 4.1, Eos % (Auto) 1.8, Baso % (Auto) 1.6, Neut # (Auto) 16.7 H, Lymph # (Auto) 0.9, [place] # (Auto) 0.8, Eos # (Auto) 0.3, Baso # (Auto) 0.3 H, Total Counted 100, Neutrophils % (Manual) 84 H, Band Neutrophils % 1.0, Lymphocytes % (Manual) 7 L, Monocytes % (Manual) 8, Platelet Estimate Normal, RBC Morphology Normal 12/19/21 05:59: Sodium 125 L, Potassium 4.5, Chloride 88 L, Carbon Dioxide 31 H, Anion Gap 10.5, BUN 12, Creatinine 0.60 L, Estimated Creat Clear 62, Estimated GFR 133, Est GFR ( Amer) 161, Glucose 110 H, Calcium 9.0, Magnesium 1.5 L, Total Bilirubin 2.0 H, Direct Bilirubin 0.2, Conjugated Bilirubin 0.0, Indirect Bilirubin 1.8 H, Unconjugated Bilirubin 1.8 H, AST 32, ALT 19, Alkaline Phosphatase 80, Total Protein 7.6, Albumin 4.3 06/17/22 05:59: NT-Pro-B Natriuret Pep 303 H 12/19/21 09:05: Troponin I < 0.01 Re
--- NOTE | 2021-12-19 07:14 | CT_ITS ---
FINAL REPORT TECHNIQUE: Postcontrast axial images of the chest were performed in a CTA protocol. The study was performed with techniques to keep radiation dose as low as reasonably achievable, (ALARA). Individual dose reduction techniques using automated exposure control or adjustment of mA and/or kV according to the patient's size were employed. CLINICAL HISTORY: sob, chest pain FINDINGS: The heart is normal in size. There are prominent paratracheal lymph nodes measuring up to 25 mm. No pleural or pericardial effusion is identified. The thoracic aorta is normal in caliber with no focal aneurysm or dissection identified. There are patchy peripheral nodular opacities diffusely. There are 2 groundglass opacities in the left lower lobe. There are multiple patchy groundglass opacities in the lingula. The images of the upper abdomen are unremarkable. IMPRESSION: No PE or dissection. Patchy interstitial nodular airspace and groundglass opacities which are probably related to pneumonia. A four-month follow-up chest CT is recommended to exclude neoplasm per Fleischner criteria. The paratracheal adenopathy can also be followed up with chest CT. Authenticated and ERN
--- NOTE | 2021-12-19 07:28 | PC.NURSE ---
AinsleyRN at bedside, assessing patient. Pt going to rad
--- NOTE | 2021-12-19 07:33 | PC.NURSE ---
pt to radiology at this time
--- NOTE | 2021-12-19 07:37 | PC.NURSE ---
pt return from radiology
--- NOTE | 2021-12-19 09:21 | PC.NURSE ---
ordered pt breakfast tray at this time
[2021-12-19 09:40] LABS: Troponin I < 0.01 ng/ml (0.00-0.034)
--- NOTE | 2021-12-19 10:07 | PC.NURSE ---
pt placed on RA o2 sats 97% and pt does not require home O2.
== END 2021-12-19 11:33 | disposition home or self-care (01) ==
PROVIDERS: Emergency Provider Emergency Medicine
DX: J44.9 Chronic obstructive pulmonary disease, unspecified (principal); R07.81 Pleurodynia; R00.0 Tachycardia, unspecified; R61 Generalized hyperhidrosis; I11.0 Hypertensive heart disease with heart failure; I65.23 Occlusion and stenosis of bilateral carotid arteries; I25.10 Atherosclerotic heart disease of native coronary artery without angina pectoris; I25.2 Old myocardial infarction; Z79.52 Long term (current) use of systemic steroids; Z79.82 Long term (current) use of aspirin; Z79.899 Other long term (current) drug therapy; Z20.822 Contact with and (suspected) exposure to COVID-19; Z95.5 Presence of coronary angioplasty implant and graft; Z87.891 Personal history of nicotine dependence; Z82.49 Family history of ischemic heart disease and other diseases of the circulatory system
CPT/HCPCS: 71045; 71275; 80048; 80076; 83735; 83880; 84145; 84484; 85007; 85025; 85651; 86140; 93005; 96361; 96374; 96375; 99285; C9803; J0456; J0696; J2405; Q9967; U0003; U0005

== ENCOUNTER 2022-03-05 08:37 | Emergency (ER) | payer OTHER, SELFPAY ==
--- NOTE | 2022-03-05 08:55 | XR_ITS ---
FINAL REPORT CLINICAL HISTORY: sob COMPARISON: December 19, 2021 FINDINGS: Two views of the chest were obtained. The heart size and pulmonary vascularity are within normal limits. The mediastinum is normal. The lungs are hyperinflated consistent with COPD. There is moderate scarring/fibrosis. There is worsening right base opacity. There is no pneumothorax. The bony thorax is intact. IMPRESSION: Worsening of right base opacity could represent pneumonia or atelectasis. Follow-up radiographs may be helpful. Reviewed, Interpreted and Dictated by Hector Harden III, MD Transcribed by Reuben Gonsalves Authenticated and [facility]
[2022-03-05 08:59] VITALS: BP 132/99; PULSE 117; RESP 22; TEMP 36.8; O2SAT 97; BMI 20.2
--- NOTE | 2022-03-05 09:04 | EXP.UTC ---
Discharge Plan Disposition Patient Disposition: Home, Self-Care Condition: Good Prescriptions Prescriptions: New benzonatate [benzonatate] 100 mg capsule 100 mg PO TIDP PRN (Reason: Cough) Qty: 30 0RF methylprednisolone 4 mg Tablets,Dose Pack 4 mg PO DIRECTED Qty: 21 0RF amoxicillin-pot clavulanate 875-125 mg Tablet 1 tab PO Q12H Qty: 20 0RF No Action cholecalciferol (vitamin D3) 25 mcg (1,000 unit) capsule 25 mcg PO DAILY nitroglycerin [Nitrostat] 0.4 mg tablet, sublingual 0.4 mg SL Q5M PRN (Reason: chest pain) Qty: 20 0RF Rx Instructions: do not exceed 3 doses per episode atorvastatin 40 MG tablet 40 mg PO HS aspirin 81 MG tablet,delayed release (DR/EC) 81 mg PO DAILY bisoprolol fumarate 5 MG tablet 5 mg PO DAILY lisinopril 5 MG tablet 5 mg PO DAILY prednisone 20 MG tablet 20 mg PO BID Qty: 10 0RF Referrals Follow up/Referrals: Provider,Referral, MD [Primary Care Provider] - See instructions Activity Restrictions/Add. Instructions Additional Instructions/Restrictions: Drink plenty of fluids. Take tylenol or ibuprofen for pain or fever. Take the medications as directed. Follow up with your regular doctor. GO TO THE ER FOR ANY WORSENING SYMPTOMS Quarantine until you know the results of your covid-19 test. Notify your school or workplace of your results and follow their instructions regarding return to work/school. Don't start the oral steroids until tomorrow, since you had the shot here today. Clinical Impressions Clinical Impression: Acute exacerbation of chronic obstructive pulmonary disease, Acute viral syndrome Stand Alone Forms Stand Alone Forms: Work/School Release Instructions Patient Instructions: DI for Chronic Obstructive Pulmonary Disease, Coronavirus Disease 2019, Preventing the Spread of Coronavirus Discharge Instructions Discharge ED Provider: Macario [facility] [place] HPI General Stated complaint: headache,congested,diarrhea,vomiting Mode of Arrival: Ambulatory Source of Information: Patient Limitations: No Limitations Time Seen by Provider: 03/05/22 09:04 Description of Symptoms (Recalled from Triage Doc. by RN): pt comes in with complaints of headache, congestion, diarrhea, vomitting, bodyaches, chills, shortness of breath. symptoms began yesterday. HEENT Symptoms (Recalled from RN notes): Yes Resp Symptoms (Recalled from RN notes): Yes Skin Symptoms (Recalled from RN notes): No MS Symptoms (Recalled from RN notes): No Functional Status (Recalled from RN notes): n/a History of Present Illness Provider Complaint: He states that for the past 2 days he has had a productive cough with yellowish sputum, low grade fever, body ache and he has felt bad. Related Data Home Medications Medication Instructions Recorded Confirmed aspirin 81 mg tablet,delayed 81 mg PO DAILY CAD 12/19/21 01/21/22 release atorvastatin 40 mg tablet 40 mg PO HS hld 12/19/21 01/21/22 bisoprolol fumarate 5 mg tablet 5 mg PO DAILY htn 12/19/21 01/21/22 lisinopril 5 mg tablet 5 mg PO DAILY htn 12/19/21 01/21/22 cholecalciferol (vitamin D3) 25 25 mcg PO DAILY 01/21/22 01/21/22 mcg (1,000 unit) capsule Previous Rx's Medication Instructions Recorded nitroglycerin 0.4 mg sublingual 0.4 mg sublingual Q5M PRN chest 02/17/21 tablet (Nitrostat) pain #20 tabs prednisone 20 mg tablet 20 mg PO BID #10 tabs 12/19/21 amoxicillin 875 mg-potassium 1 tab PO Q12H #20 tabs 03/05/22 clavulanate 125 mg tablet benzonatate 100 mg capsule 100 mg PO TIDP PRN Cough #30 caps 03/05/22 methylprednisolone 4 mg tablets in 4 mg PO DIRECTED #21 tabs 03/05/22 a dose pack Allergies Allergy/AdvReac Type Severity Reaction Status Date / Time No Known Allergies Allergy Verified 01/21/22 09:21 Worker's Comp Is this a Worker's Comp case?: No PFSH [facility] Medical History Bilateral carotid
[2022-03-05 10:05] VITALS: BP 132/99; PULSE 117; RESP 22; TEMP 36.8
== END 2022-03-05 10:06 | disposition home or self-care (01) ==
PROVIDERS: Emergency Provider Nurse Practitioner Family
DX: J44.1 Chronic obstructive pulmonary disease with (acute) exacerbation (principal); B34.9 Viral infection, unspecified; Z79.82 Long term (current) use of aspirin; Z79.899 Other long term (current) drug therapy; Z87.891 Personal history of nicotine dependence
CPT/HCPCS: 71046; 96372; 99212; C9803; G0463; J0696; U0003; U0005

== ENCOUNTER 2022-03-20 09:55 | Emergency (ER) | payer OTHER, SELFPAY ==
[2022-03-20 11:04] VITALS: BP 141/84; PULSE 101; RESP 22; TEMP 37.1; O2SAT 98; BMI 21.7
--- NOTE | 2022-03-20 11:18 | EXP.UTC ---
Discharge Plan Disposition Patient Disposition: Home, Self-Care Condition: Good Prescriptions Prescriptions: New prednisone 20 mg tablet 20 mg PO BID Qty: 10 0RF benzonatate 100 mg capsule 100 mg PO TID PRN (Reason: cough) Qty: 15 0RF levofloxacin 500 mg tablet 500 mg PO DAILY Qty: 7 0RF No Action cholecalciferol (vitamin D3) 25 mcg (1,000 unit) capsule 25 mcg PO DAILY nitroglycerin [Nitrostat] 0.4 mg tablet, sublingual 0.4 mg SL Q5M PRN (Reason: chest pain) Qty: 20 0RF Rx Instructions: do not exceed 3 doses per episode atorvastatin 40 MG tablet 40 mg PO HS aspirin 81 MG tablet,delayed release (DR/EC) 81 mg PO DAILY bisoprolol fumarate 5 MG tablet 5 mg PO DAILY lisinopril 5 MG tablet 5 mg PO DAILY prednisone 20 MG tablet 20 mg PO BID Qty: 10 0RF benzonatate [benzonatate] 100 mg capsule 100 mg PO TIDP PRN (Reason: Cough) Qty: 30 0RF methylprednisolone 4 mg Tablets,Dose Pack 4 mg PO DIRECTED Qty: 21 0RF amoxicillin-pot clavulanate 875-125 mg Tablet 1 tab PO Q12H Qty: 20 0RF Referrals Follow up/Referrals: Provider,Referral, MD [Primary Care Provider] - See instructions Activity Restrictions/Add. Instructions Additional Instructions/Restrictions: Start antibiotic today. Be sure to complete entire prescription even if feeling better Monitor temp. Tylenol every 4 hours as needed and / or ibuprofen every 6 hours as needed ( As long as your primary care physician has told you that it ok to take both. For fever/aches/pains ER if no less than 101 despite Tylenol or Motrin Humidifier/vaporizer or hot steamy shower Inhaler every 4-6 hours as needed like we discussed. If unsure how to use it, ask pharmacist to demonstrate how. Should help open airways and improve cough, wheezing, and shortness of breath *Tessalon Perles will not cause drowsiness but use at bedtime to help stop cough so that you may get some rest. *Start steroid today. Helps with inflammation therefore, cough and wheezing. Follow directions on the package. Reviewed side effects. Patient reports taking them before. Follow up IMMEDIATELY for new or worsening of symptoms OR no noticeable improvement over the next 48-72 hours. 911 immediately for any life threatening symptoms such as chest pain or difficulty breathing Clinical Impressions Clinical Impression: Bronchitis, COPD (chronic obstructive pulmonary disease) with acute bronchitis Instructions Patient Instructions: Be a Partner in Your COPD Care, Acute Bronchitis Discharge ED Provider[place]ubia [place] [facility] [place] General Stated complaint: weakness, soa, vomiting, h/a, chills Mode of Arrival: Ambulatory Source of Information: Patient Limitations: No Limitations Time Seen by Provider: 03/20/22 11:18 Description of Symptoms (Recalled from Triage Doc. by RN): C/O productive cough and SOA x3 days HEENT Symptoms (Recalled from RN notes): No Resp Symptoms (Recalled from RN notes): Yes (productive cough, SOA) Skin Symptoms (Recalled from RN notes): No MS Symptoms (Recalled from RN notes): No Functional Status (Recalled from RN notes): n/a History of Present Illness Provider Complaint: Patient states that he recently had COVID and having a hard time getting over it States that he has been having productive cough at times feels a little SOA after coughing episode tired from coughing at night States that he has COPD and feels like it is flaring up States that he wanted to come in and get checked for COVID again and get some antibiotics before it got too bad and turned into pneumonia Related Data Home Medications Medication Instructions Recorded Confirmed aspirin 81 mg tablet,delayed 81 mg PO DAILY CAD 12/19/21 01/21/22 release atorvastatin 40 mg tablet 40 mg PO HS hld 12/19/21 01/21/22 bisoprolol fumarate 5 mg tablet 5 mg PO DAILY htn 12/19/21 01/21/22 lisinopr
[2022-03-20 11:37] VITALS: BP 141/84; PULSE 101; RESP 22; TEMP 37.1; O2SAT 98
== END 2022-03-20 11:41 | disposition home or self-care (01) ==
PROVIDERS: Emergency Provider Nurse Practitioner
DX: J44.0 Chronic obstructive pulmonary disease with (acute) lower respiratory infection (principal); J20.9 Acute bronchitis, unspecified; Z86.16 Personal history of COVID-19
CPT/HCPCS: C9803; U0003; U0005

== ENCOUNTER 2022-04-11 11:26 | Emergency (ER) | payer OTHER, SELFPAY ==
[2022-04-11] VITALS (18 sets, daily range): BP systolic 102–130; BP diastolic 59–85; PULSE 47–122; RESP 12–24; TEMP 36.6–37.1; O2SAT 80–100; BMI 20.7
--- NOTE | 2022-04-11 11:47 | XR_ITS ---
PROCEDURE INFORMATION: Exam: XR Chest Exam date and time: 04/11/2022 11:49 AM Age: 72 years old Clinical indication: Shortness of breath; Additional info: HX copd. SOB since covid 3 weeks ago TECHNIQUE: Imaging protocol: Radiologic exam of the chest. Views: 2 views. COMPARISON: CR XR CHEST 2V 03/05/2022 8:52 AM FINDINGS: Lungs: Hyperexpanded lung sanches consistent with COPD. Improving opacities in the right base. Pleural spaces: Unremarkable. No pleural effusion. No pneumothorax. Heart/Mediastinum: Unremarkable. No cardiomegaly. Diaphragm: Tenting in the left hemidiaphragm Bones/joints: Unremarkable. IMPRESSION: Improving opacities in the right base.
--- NOTE | 2022-04-11 11:50 | EXP.UTC ---
Discharge Plan Disposition Patient Disposition: Still a Patient Condition: Fair Chief Complaint: Shortness of Breath/Dyspnea Prescriptions Prescriptions: No Action cholecalciferol (vitamin D3) 25 mcg (1,000 unit) capsule 25 mcg PO DAILY nitroglycerin [Nitrostat] 0.4 mg tablet, sublingual 0.4 mg SL Q5M PRN (Reason: chest pain) Qty: 20 0RF Rx Instructions: do not exceed 3 doses per episode prednisone 20 mg tablet 20 mg PO BID Qty: 10 0RF benzonatate 100 mg capsule 100 mg PO TID PRN (Reason: cough) Qty: 15 0RF levofloxacin 500 mg tablet 500 mg PO DAILY Qty: 7 0RF atorvastatin 40 MG tablet 40 mg PO HS aspirin 81 MG tablet,delayed release (DR/EC) 81 mg PO DAILY bisoprolol fumarate 5 MG tablet 5 mg PO DAILY lisinopril 5 MG tablet 5 mg PO DAILY prednisone 20 MG tablet 20 mg PO BID Qty: 10 0RF benzonatate [benzonatate] 100 mg capsule 100 mg PO TIDP PRN (Reason: Cough) Qty: 30 0RF methylprednisolone 4 mg Tablets,Dose Pack 4 mg PO DIRECTED Qty: 21 0RF amoxicillin-pot clavulanate 875-125 mg Tablet 1 tab PO Q12H Qty: 20 0RF Referrals Follow up/Referrals: Provider,Referral, MD [Primary Care Provider] - See instructions Clinical Impressions Clinical Impression: Shortness of breath [place]charge ED Provider[place] [facility] [place] Chief complaint: Shortness of Breath/Dyspnea Stated complaint: SOA Mode of Arrival: Ambulatory Source of Information: Patient Limitations: No Limitations Time Seen by Provider: 04/11/22 11:50 Description of Symptoms (Recalled from Triage Doc. by RN): pt comes in with c/o shortness of air. symptoms have been ongoing for 3 weeks since pt had covid. HEENT Symptoms (Recalled from RN notes): No Resp Symptoms (Recalled from RN notes): Yes Skin Symptoms (Recalled from RN notes): No MS Symptoms (Recalled from RN notes): No Functional Status (Recalled from RN notes): n/a History of Present Illness Provider Complaint: He comes back in with shortness of breath today. He has been having worsening shortness of breath since he had covid approx 1 month ago. Related Data Home Medications Medication Instructions Recorded Confirmed aspirin 81 mg tablet,delayed 81 mg PO DAILY CAD 12/19/21 01/21/22 release atorvastatin 40 mg tablet 40 mg PO HS hld 12/19/21 01/21/22 bisoprolol fumarate 5 mg tablet 5 mg PO DAILY htn 12/19/21 01/21/22 lisinopril 5 mg tablet 5 mg PO DAILY htn 12/19/21 01/21/22 cholecalciferol (vitamin D3) 25 25 mcg PO DAILY 01/21/22 01/21/22 mcg (1,000 unit) capsule Previous Rx's Medication Instructions Recorded nitroglycerin 0.4 mg sublingual 0.4 mg sublingual Q5M PRN chest 02/17/21 tablet (Nitrostat) pain #20 tabs prednisone 20 mg tablet 20 mg PO BID #10 tabs 12/19/21 amoxicillin 875 mg-potassium 1 tab PO Q12H #20 tabs 03/05/22 clavulanate 125 mg tablet benzonatate 100 mg capsule 100 mg PO TIDP PRN Cough #30 caps 03/05/22 methylprednisolone 4 mg tablets in 4 mg PO DIRECTED #21 tabs 03/05/22 a dose pack benzonatate 100 mg capsule 100 mg PO TID PRN cough #15 caps 03/20/22 levofloxacin 500 mg tablet 500 mg PO DAILY #7 tabs 03/20/22 prednisone 20 mg tablet 20 mg PO BID #10 tabs 03/20/22 Allergies Allergy/AdvReac Type Severity Reaction Status Date / Time No Known Allergies Allergy Verified 04/11/22 11:48 Worker's Comp Is this a Worker's Comp case?: No PFSH PFSH Medical History Bilateral carotid artery stenosis Cardiomyopathy Swelling of right upper extremity Social History Smoking Status: Former smoker alcohol intake: current current occupational status: employed Travel in the last 8 weeks: None household members: spouse 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
--- NOTE | 2022-04-11 13:01 | HMH.EDGENADL ---
Discharge Plan Disposition Condition: Fair Chief Complaint: Shortness of Breath/Dyspnea Prescriptions Prescriptions: No Action cholecalciferol (vitamin D3) 25 mcg (1,000 unit) capsule 25 mcg PO DAILY nitroglycerin [Nitrostat] 0.4 mg tablet, sublingual 0.4 mg SL Q5M PRN (Reason: chest pain) Qty: 20 0RF Rx Instructions: do not exceed 3 doses per episode prednisone 20 mg tablet 20 mg PO BID Qty: 10 0RF benzonatate 100 mg capsule 100 mg PO TID PRN (Reason: cough) Qty: 15 0RF levofloxacin 500 mg tablet 500 mg PO DAILY Qty: 7 0RF atorvastatin 40 MG tablet 40 mg PO HS aspirin 81 MG tablet,delayed release (DR/EC) 81 mg PO DAILY bisoprolol fumarate 5 MG tablet 5 mg PO DAILY lisinopril 5 MG tablet 5 mg PO DAILY prednisone 20 MG tablet 20 mg PO BID Qty: 10 0RF benzonatate [benzonatate] 100 mg capsule 100 mg PO TIDP PRN (Reason: Cough) Qty: 30 0RF methylprednisolone 4 mg Tablets,Dose Pack 4 mg PO DIRECTED Qty: 21 0RF amoxicillin-pot clavulanate 875-125 mg Tablet 1 tab PO Q12H Qty: 20 0RF Referrals Follow up/Referrals: Provider,Referral, MD [Primary Care Provider] - See instructions Clinical Impressions Clinical Impression: Atrial fibrillation, new onset, Abnormal ECG, Elevated troponin, Acute pericardial effusion, Pneumonia, Hyponatremia Discharge ED Provider: Jhon [facility] General Chief complaint: Shortness of Breath/Dyspnea Stated complaint: SOA Time Seen by Provider: 04/11/22 11:50 Mode of Arrival: Ambulatory Limitations: No Limitations Description of Symptoms (Recalled from ER Triage Doc. by RN): PT REPORTS INCREASED SHORTNESS OF BREATH SINCE COVID DIAGNOSIS ABOUT 3 WEEKS AGO History of Present Illness HPI narrative: The patient is sent from the urgent treatment center. Patient states that he has been short of breath since he was diagnosed with COVID here at the urgent treatment center about 3 weeks ago. Initially had a cough but that has gotten better. He still has benzonatate to take for cough. He states he was not started on any other medications. He was not treated with Paxil of it. He has been vaccinated with the initial 2 vaccine series, Moderna, for COVID, no boosters. Denies fever. Denies chest pain. Denies sputum production. He is on Wixela and Spiriva inhalers for his COPD. He is a former smoker. He has a nebulizer but has no medication to use with that. He has a history of cardiac stent placed by Dr. Mendez at this facility. He goes to the [facility] for his primary care. Related Data Home Medications Medication Instructions Recorded Confirmed aspirin 81 mg tablet,delayed 81 mg PO DAILY CAD 12/19/21 01/21/22 release atorvastatin 40 mg tablet 40 mg PO HS hld 12/19/21 01/21/22 bisoprolol fumarate 5 mg tablet 5 mg PO DAILY htn 12/19/21 01/21/22 lisinopril 5 mg tablet 5 mg PO DAILY htn 12/19/21 01/21/22 cholecalciferol (vitamin D3) 25 25 mcg PO DAILY 01/21/22 01/21/22 mcg (1,000 unit) capsule Previous Rx's Medication Instructions Recorded nitroglycerin 0.4 mg sublingual 0.4 mg sublingual Q5M PRN chest 02/17/21 tablet (Nitrostat) pain #20 tabs prednisone 20 mg tablet 20 mg PO BID #10 tabs 12/19/21 amoxicillin 875 mg-potassium 1 tab PO Q12H #20 tabs 03/05/22 clavulanate 125 mg tablet benzonatate 100 mg capsule 100 mg PO TIDP PRN Cough #30 caps 03/05/22 methylprednisolone 4 mg tablets in 4 mg PO DIRECTED #21 tabs 03/05/22 a dose pack benzonatate 100 mg capsule 100 mg PO TID PRN cough #15 caps 03/20/22 levofloxacin 500 mg tablet 500 mg PO DAILY #7 tabs 03/20/22 prednisone 20 mg tablet 20 mg PO BID #10 tabs 03/20/22 Allergies Allergy/AdvReac Type Severity Reaction Status Date / Time No Known Allergies Allergy Verified 04/11/22 11:48 [facility] Medical History Bilateral carotid artery stenosis Cardiomyopathy Swelling
--- NOTE | 2022-04-11 13:12 | ECG_ITS ---
APPROVED REPORT Exam: Resting ECG HR:90 bpm ECG Measurements Heart Rate 90 AXES QRSd 89 QRS 9 QT 366 T -65 QTc 413 Conclusion ATRIAL FIBRILLATION MODERATE T-WAVE ABNORMALITY, CONSIDER INFERIOR ISCHEMIA [-0.1+ mV T-WAVE IN II/aVF] ABNORMAL ECG UNCONFIRMED REPORT Electronically signed by : Yfn Sandhu MD 04/11/2022 17:37:16
[2022-04-11 13:18] LABS: Basophils % 0.3 % (0.1-2.0); Eosinophils # 0.1 K/mm3 (0.0-0.4); Eosinophils % 1.1 % (0.1-12.0); Hematocrit 37.5 % (42.0-52.0); Hemoglobin 12.1 g/dL (14.1-18.0); Lymphocytes # 1.2 K/mm3 (0.7-4.5); Lymphocytes % 15.7 % (10-50); Mean Corpuscular HGB Conc 32.1 g/dL (31.8-35.4); Mean Corpuscular Hemoglobin 29.4 pg (27.0-31.2); Mean Corpuscular Volume 91.5 fl (80-94); Mean Platelet Volume 7.7 fl (7.4-10.4); Monocytes # 0.4 K/mm3 (0.1-1.0); Monocytes % 5.1 % (1.7-9.3); Neutrophils # 5.9 K/mm3 (1.8-7.8); Neutrophils % 77.8 % (37.0-80.0); Platelet Count 364 K/mm3 (142-424); Red Cell Distribution Width 13.8 % (11.5-17.5); White Blood Count 7.6 K/mm3 (4.8-10.8)
[2022-04-11 13:24] LABS: Chloride 85 mmol/L (98-107); Potassium 4.4 mmoL/L (3.5-5.1); Sodium 125 mmol/L (136-145)
[2022-04-11 13:27] LABS: Anion Gap 11.4 mEq/L (5-15); Blood Urea Nitrogen 8 mg/dl (9-20); Calcium 8.2 mg/dl (8.4-10.2); Carbon Dioxide 33 mmol/L (22.0-30.0); Creatinine Clearance Estimated 62 mL/min (50-200); Estimated Glomerular Filt Rate 163 ml/min (>60); GFR (African American) 198 ML/MIN (>60); Glucose 101 mg/dl (74-100)
--- NOTE | 2022-04-11 13:29 | PC.NURSE ---
Pt given pillow and warm blanket for comfort. No other needs voiced.
--- NOTE | 2022-04-11 13:30 | PC.NURSE ---
RT at BS to administer breathing treatment
[2022-04-11 13:32] LABS: D-Dimer 2.25 ug/mL (0.0-0.5)
--- NOTE | 2022-04-11 13:36 | PC.NURSE ---
ED MD AT BEDSIDE
--- NOTE | 2022-04-11 13:37 | PC.NURSE ---
PT REQUESTED LUNCH TRAY, OK'S PER ED MD. DIETARY NOTIFIED
--- NOTE | 2022-04-11 13:38 | CT_ITS ---
PROCEDURE INFORMATION: Exam: CTA Chest With Contrast Exam date and time: 04/11/2022 1:43 PM Age: 72 years old Clinical indication: Shortness of breath; Additional info: SOA, elev d-dimer, recent covid TECHNIQUE: Imaging protocol: Computed tomographic angiography of the chest with contrast. 3D rendering (Not supervised by radiologist): MIP and/or 3D reconstructed images were created by the technologist. Radiation optimization: All CT scans at this facility use at least one of these dose optimization techniques: automated exposure control; mA and/or kV adjustment per patient size (includes targeted exams where dose is matched to clinical indication); or iterative reconstruction. Contrast material: ISOVUE; Contrast volume: 70 ml; Contrast route: INTRAVENOUS (IV); COMPARISON: CT ANGIO CHEST PE PROTOCOL 12/19/2021 7:15 AM FINDINGS: Pulmonary arteries: No evidence of pulmonary embolus to the segmental level. Aorta: No aneurysm of the aorta. No dissection of the aorta. Lungs: 8.8 mm pulmonary nodule in the right upper lobe. It was present on the prior study. Mild opacities in the lingula and both lower lobes may represent atelectasis or pneumonia.. Pleural spaces: Small bilateral pleural effusions Heart: Pericardial effusion up to 14 mm. Lymph nodes: Pathologic node anterior to the trachea 14 x 14 mm Kidneys and ureters: Nonobstructing left renal calculus Bones/joints: Healed sternal fracture with some contour abnormality No acute fracture. Soft tissues: Unremarkable. IMPRESSION: 1. No evidence of pulmonary embolus to the segmental level. 2. No aneurysm of the aorta. 3. No dissection of the aorta. 4. 8.8 mm pulmonary nodule in the right upper lobe. It was present on the prior study. For both low risk and high risk patients, consider CT Chest at 3 months, PET/CT, or biopsy. (Reference: [place]) References: Yesicahoyu H, et al. Guidelines for Management of Incidental Pulmonary Nodules Detected on CT Images: From the Fleischner Society 2017. Radiology. 2017;284(1):228-243. 5. Mild opacities in the lingula and both lower lobes may represent atelectasis or pneumonia.. 6. Pericardial effusion up to 14 mm. 7. Small bilateral pleural effusions
[2022-04-11 13:41] LABS: NT Pro Brain Natriuretic Pep. 7210 pg/mL (0-125)
[2022-04-11 13:44] LABS: Troponin I 0.04 ng/ml (0.00-0.034)
--- NOTE | 2022-04-11 13:44 | PC.NURSE ---
Pt to rad
--- NOTE | 2022-04-11 13:46 | PC.NURSE ---
PT TO CT AT THIS TIME
--- NOTE | 2022-04-11 13:57 | PC.NURSE ---
Pt returned from rad
--- NOTE | 2022-04-11 14:00 | PC.NURSE ---
Another sandwich requested from dietary per pt request.
[2022-04-11 14:03] LABS: Triiodothryronine (T3) Uptake 51 % (23.5-40.5)
[2022-04-11 14:04] LABS: Free Thyroxine Index 2.6 ug/dL (5.93-13.13); T4 (Thyroxine) 5.1 ug/dl (5.53-11.0)
[2022-04-11 14:16] LABS: Coronavirus 19, PCR Not Detected (NotDetected); Influenza A, PCR Not Detected (NotDetected); Influenza B, PCR Not Detected (NotDetected)
[2022-04-11 14:18] LABS: Thyroid Stimulating Hormone 0.66 uIU/mL (0.465-4.68)
--- NOTE | 2022-04-11 14:34 | PC.NURSE ---
Waiting for call back from [facility]
--- NOTE | 2022-04-11 14:44 | PC.NURSE ---
[facility] speaking with hospitalist at [facility]
--- NOTE | 2022-04-11 14:44 | PC.NURSE ---
[facility] SPE[facility]ING [facility]
--- NOTE | 2022-04-11 14:51 | PC.NURSE ---
Pt accepted by [facility]ist
--- NOTE | 2022-04-11 15:00 | PC.NURSE ---
PT UPDATED ON POC AND FURTHER CARE AT [facility]. PT WISHES TO DRIVE TO [facility]. INFORMED THAT HE WILL TRANSFER VIA EMS
--- NOTE | 2022-04-11 15:09 | PC.NURSE ---
got pt someting to drink, also got pt an envelope to put his dedit card and keys to his vec for his granddaughter to pecan picker
--- NOTE | 2022-04-11 15:33 | PC.NURSE ---
Waiting for call back from [facility] for pt bed assignment
--- NOTE | 2022-04-11 16:00 | PC.NURSE ---
pt sitting up in bed, nothing needed at this time
--- NOTE | 2022-04-11 16:17 | PC.NURSE ---
Pt advised that he was feeling Very sick to his stomach. MD notified.
--- NOTE | 2022-04-11 16:22 | PC.NURSE ---
[facility]th Floor, Room 527 Number to call report is [phone]
[2022-04-11 16:56] LABS: Troponin I 0.03 ng/ml (0.00-0.034)
--- NOTE | 2022-04-11 16:58 | PC.NURSE ---
[facility] NOTIFIED OF TRANSFER
--- NOTE | 2022-04-11 17:28 | PC.NURSE ---
pt in bed sleeping, nothing needed at this time
--- NOTE | 2022-04-11 17:49 | PC.NURSE ---
called and got pt a cardiac tray, lowered pts bed and turned the lights out for him.
--- NOTE | 2022-04-11 17:58 | PC.NURSE ---
Pt ambulatory to bathroom
--- NOTE | 2022-04-11 18:10 | PC.NURSE ---
Pt provided with dinner tray
[2022-04-11 19:39] LABS: Troponin I 0.02 ng/ml (0.00-0.034)
--- NOTE | 2022-04-11 21:32 | PC.NURSE ---
Pt updated that we are still waiting on [place] for transport. Pt given Pepsi per request. No other needs or complaints voiced at this time.
--- NOTE | 2022-04-11 21:50 | PC.NURSE ---
report called to [facility]- 5th floor, Lisa RUIZ. [facility] aware of transport, will be here shortly.
== END 2022-04-11 22:23 | disposition short-term general hospital (02) ==
LOC: UTC 11:29 → ER 12:38
PROVIDERS: Emergency Provider Emergency Medicine
DX: J44.9 Chronic obstructive pulmonary disease, unspecified (principal); R94.31 Abnormal electrocardiogram [ECG] [EKG]; E87.1 Hypo-osmolality and hyponatremia; R05.9 Cough, unspecified; Z20.822 Contact with and (suspected) exposure to COVID-19; I42.9 Cardiomyopathy, unspecified; I31.39 Other pericardial effusion (noninflammatory); I48.91 Unspecified atrial fibrillation; I65.23 Occlusion and stenosis of bilateral carotid arteries; J90 Pleural effusion, not elsewhere classified; Z79.51 Long term (current) use of inhaled steroids; Z79.82 Long term (current) use of aspirin; Z79.899 Other long term (current) drug therapy; Z95.5 Presence of coronary angioplasty implant and graft; Z87.891 Personal history of nicotine dependence
CPT/HCPCS: 36415; 71046; 71275; 80048; 83880; 84436; 84443; 84479; 84484; 85025; 85378; 93005; 96374; 99285; C9803; J0456; J0696; Q9967; U0003; U0005

== ENCOUNTER 2022-07-14 12:30 | Emergency (ER) | payer OTHER, SELFPAY ==
--- NOTE | 2022-07-14 12:32 | EXP.UTC ---
Discharge Plan Disposition Patient Disposition: Home, Self-Care Condition: Good Prescriptions Prescriptions: New benzonatate [benzonatate] 100 mg capsule 100 mg PO TIDP PRN (Reason: Cough) Qty: 30 0RF methylprednisolone 4 mg Tablets,Dose Pack 4 mg PO DIRECTED Qty: 21 0RF amoxicillin-pot clavulanate 875-125 mg Tablet 1 tab PO Q12H Qty: 20 0RF No Action cholecalciferol (vitamin D3) 25 mcg (1,000 unit) capsule 25 mcg PO DAILY atorvastatin 40 MG tablet 40 mg PO HS aspirin 81 MG tablet,delayed release (DR/EC) 81 mg PO DAILY bisoprolol fumarate 5 MG tablet 5 mg PO DAILY Referrals Follow up/Referrals: Provider,Referral, MD [Primary Care Provider] - See instructions Activity Restrictions/Add. Instructions Additional Instructions/Restrictions: Drink plenty of fluids. Take tylenol or ibuprofen for pain or fever. Take the medications as directed. Follow up with your regular doctor. GO TO THE ER FOR ANY WORSENING SYMPTOMS Clinical Impressions Clinical Impression: Acute bronchitis Instructions Patient Instructions: DI for Acute Bronchitis Discharge ED Provider: Macario Crooks [facility] [place] General Stated complaint: SOA Time Seen by Provider: 07/14/22 12:32 History of Present Illness Provider Complaint: He states that for the past 1 week he has had worsening chest congestion. He states that he has had a cough since he was hospitalized with covid-19 and atrial fib about 2 months ago. He denies any fever/chills/ at this time. Related Data Home Medications Medication Instructions Recorded Confirmed aspirin 81 mg tablet,delayed 81 mg PO DAILY CAD 12/19/21 01/21/22 release atorvastatin 40 mg tablet 40 mg PO HS hld 12/19/21 01/21/22 bisoprolol fumarate 5 mg tablet 5 mg PO DAILY htn 12/19/21 01/21/22 cholecalciferol (vitamin D3) 25 25 mcg PO DAILY 01/21/22 01/21/22 mcg (1,000 unit) capsule Previous Rx's Medication Instructions Recorded amoxicillin 875 mg-potassium 1 tab PO Q12H #20 tabs 07/14/22 clavulanate 125 mg tablet benzonatate 100 mg capsule 100 mg PO TIDP PRN Cough #30 caps 07/14/22 methylprednisolone 4 mg tablets in 4 mg PO DIRECTED #21 tabs 07/14/22 a dose pack Allergies Allergy/AdvReac Type Severity Reaction Status Date / Time No Known Allergies Allergy Verified 07/14/22 12:53 [facility] Disclaimer: The information contained in this section may have been updated after the patient was seen, as this information can be updated by other users. 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 [employer] caffeine: No ROS Obtained: Yes All systems reviewed & no additional complaints except as documented Constitutional Constitutional: Reports poor appetite Eyes Eyes: Reports system reviewed and no additional complaints, except as documented ENT Ears, Nose, Mouth, and Throat: Reports as per HPI Cardiovascular Cardiovascular: Reports system reviewed and no additional complaints, except as documented and Denies chest pain Respiratory Respiratory: Denies shortness of breath, Reports chest congestion, Reports cough, Denies stridor and Denies wheezing Gastrointestinal Gastrointestingal: Reports system reviewed and no additional complaints, except as documented; Denies abdominal pain, diarrhea or vomiting Musculoskeletal Musculoskeletal: Reports system reviewed and no additional complaints, except as documented and Denies arthralgias Integumentary/Breasts Skin/Breast: Reports system reviewed and no additional complaints, except as documented and Denies rash
[2022-07-14 12:40] VITALS: BP 138/57; PULSE 74; RESP 19; TEMP 36.7; O2SAT 95; BMI 20.7
--- NOTE | 2022-07-14 12:47 | XR_ITS ---
FINAL REPORT TECHNIQUE: Chest PA & Lateral CLINICAL HISTORY: cough, soa COMPARISON: March 2022 FINDINGS: 2 views of the chest were performed. The heart size is normal. The mediastinum is within normal limits. The lungs are hyperinflated consistent with COPD. There are upper lobe opacities favoring scarring. There are no pleural effusions. There is no pneumothorax. The bony thorax appears intact. IMPRESSION: No acute cardiopulmonary process. Reviewed, Interpreted and Dictated by Hector Harden III, MD Transcribed by Reuben Gonsalves Authenticated and [facility]
--- NOTE | 2022-07-14 13:42 | ECG_ITS ---
APPROVED REPORT Exam: Resting ECG HR:68 bpm ECG Measurements Heart Rate 68 AXES MA 174 P 66 QRSd 97 QRS 38 QT 419 T -38 QTc 437 Conclusion SINUS RHYTHM WITH SINUS ARRHYTHMIA Late R wave progression MODERATE T-WAVE ABNORMALITY, unchanged from prior ABNORMAL ECG UNCONFIRMED REPORT Electronically signed by : Yfn Sandhu MD 07/14/2022 21:51:15
[2022-07-14 14:20] VITALS: BP 138/57; PULSE 74; RESP 20; TEMP 36.7; O2SAT 95
== END 2022-07-14 14:20 | disposition home or self-care (01) ==
PROVIDERS: Emergency Provider Nurse Practitioner Family
DX: J20.9 Acute bronchitis, unspecified (principal)
CPT/HCPCS: 71046; 93005; 99212; 99213; G0463

== ENCOUNTER 2022-10-21 14:58 | Inpatient (IN) | payer MEDICARE, SELFPAY ==
[2022-10-21] VITALS (12 sets, daily range): BP systolic 139–189; BP diastolic 69–116; PULSE 76–103; RESP 18–27; TEMP 36.8–36.9; O2SAT 93–99; BMI 19.7
--- NOTE | 2022-10-21 16:04 | XR_ITS ---
PROCEDURE INFORMATION: Exam: XR Chest Exam date and time: 10/21/2022 4:20 PM Age: 72 years old Clinical indication: Shortness of breath; Additional info: SOA TECHNIQUE: Imaging protocol: Radiologic exam of the chest. Views: 1 view. COMPARISON: CR XR CHEST 2V 07/14/2022 1:18 PM and chest x-rays dating back to 12/19/2021 FINDINGS: Lungs: Bilateral upper lobe region pleural-parenchymal scarring. Lungs are otherwise clear. No acute disease. Pleural spaces: Unremarkable. No pleural effusion. No pneumothorax. Heart/Mediastinum: Unremarkable. No cardiomegaly. Bones/joints: Unremarkable. IMPRESSION: Stable chest x-ray with no acute disease.
--- NOTE | 2022-10-21 16:06 | HMH.EDGENADL ---
Discharge Plan Disposition Patient Disposition: Admitted As Inpatient Chief Complaint: Shortness of Breath/Dyspnea Prescriptions Prescriptions: No Action cholecalciferol (vitamin D3) 25 mcg (1,000 unit) capsule 25 mcg PO DAILY atorvastatin 40 MG tablet 40 mg PO HS aspirin 81 MG tablet,delayed release (DR/EC) 81 mg PO DAILY bisoprolol fumarate 5 MG tablet 5 mg PO DAILY benzonatate [benzonatate] 100 mg capsule 100 mg PO TIDP PRN (Reason: Cough) Qty: 30 0RF methylprednisolone 4 mg Tablets,Dose Pack 4 mg PO DIRECTED Qty: 21 0RF amoxicillin-pot clavulanate 875-125 mg Tablet 1 tab PO Q12H Qty: 20 0RF Referrals Follow up/Referrals: Provider,Referral, MD [Primary Care Provider] - See instructions Clinical Impressions Clinical Impression: Acute hyponatremia, Increasing shortness of breath Discharge ED Provider: Billy Cabral General Adult HPI General Chief complaint: Shortness of Breath/Dyspnea Stated complaint: SOA, [facility] Time Seen by Provider: 10/21/22 15:04 Mode of Arrival: Ambulatory Source of Information: Patient Limitations: No Limitations Description of Symptoms (Recalled from ER Triage Doc. by RN): pt to ed c/o shortness of breath. pt states he has been short of air since april of last year when he had covid. pt states he had a CT on 10/13 at the [facility] and has not gotten those results yet. pt states he is also out of his inhaler. History of Present Illness HPI narrative: This is a 72-year-old male with history of COPD, hypertension, CAD, presenting with shortness of breath. Patient states he is given getting progressively short of breath for the past week. Had a CT done, but does not know the results. Has had cough productive of yellow sputum, which is not new for him. Denies chest pain, nausea, vomiting, diaphoresis, neurologic deficits, recent travel, fevers, chills, or any other concerns Related Data Home Medications Medication Instructions Recorded Confirmed aspirin 81 mg tablet,delayed 81 mg PO DAILY CAD 12/19/21 01/21/22 release atorvastatin 40 mg tablet 40 mg PO HS hld 12/19/21 01/21/22 bisoprolol fumarate 5 mg tablet 5 mg PO DAILY htn 12/19/21 01/21/22 cholecalciferol (vitamin D3) 25 25 mcg PO DAILY 01/21/22 01/21/22 mcg (1,000 unit) capsule Previous Rx's Medication Instructions Recorded amoxicillin 875 mg-potassium 1 tab PO Q12H #20 tabs 07/14/22 clavulanate 125 mg tablet benzonatate 100 mg capsule 100 mg PO TIDP PRN Cough #30 caps 07/14/22 methylprednisolone 4 mg tablets in 4 mg PO DIRECTED #21 tabs 07/14/22 a dose pack Allergies Allergy/AdvReac Type Severity Reaction Status Date / Time No Known Allergies Allergy Verified 07/14/22 12:53 [facility] Disclaimer: The information contained in this section may have been updated after the patient was seen, as this information can be updated by other users. 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 [employer] caffeine: No ROS Obtained: Yes All systems reviewed & no additional complaints except as documented Physical Exam General General appearance: alert and in no apparent distress Head Head exam: atraumatic, normocephalic and normal inspection Eye Eye exam: Present normal appearance, PERRL and EOMI ENT ENT exam: Present normal exam, normal oropharynx, mucous membranes moist, TM's normal bilaterally and normal external ear exam Neck Neck exam: Present normal inspection, full ROM and trachea midline; Absent meningismus or lymphadenopathy Chest Chest inspection: Present normal inspectio
[2022-10-21 17:27] LABS: Blood Urea Nitrogen 9 mg/dl (9-20); Carbon Dioxide 35 mmol/L (22.0-30.0); Chloride 77 mmol/L (98-107); Creatinine Clearance Estimated 60 mL/min (50-200); Estimated Glomerular Filt Rate 163 ml/min (>60); GFR (African American) 198 ML/MIN (>60); Glucose 108 mg/dl (74-100)
--- NOTE | 2022-10-21 17:30 | ECG_ITS ---
APPROVED REPORT Exam: Resting ECG HR:87 bpm ECG Measurements Heart Rate 87 AXES SC 186 P 75 QRSd 108 QRS 58 QT 368 T -24 QTc 413 Conclusion SINUS RHYTHM WITH FREQUENT VENTRICULAR PREMATURE COMPLEXES POSSIBLE LEFT ATRIAL ENLARGEMENT [-0.1mV P-WAVE IN V1/V2] ST DEVIATION AND MODERATE T-WAVE ABNORMALITY, CONSIDER INFERIOR ISCHEMIA [-0.1+ mV T-WAVE IN II/aVF] ABNORMAL ECG UNCONFIRMED REPORT Electronically signed by : Yfn Sandhu MD 10/23/2022 14:24:18
[2022-10-21 17:34] LABS: Sodium 115 mmol/L (136-145)
[2022-10-21 17:35] LABS: Basophils % 0.2 % (0.1-2.0); Eosinophils # 0.2 K/mm3 (0.0-0.4); Eosinophils % 2.7 % (0.1-12.0); Hematocrit 40.2 % (42.0-52.0); Hemoglobin 13.3 g/dL (14.1-18.0); Lymphocytes # 1.1 K/mm3 (0.7-4.5); Lymphocytes % 13.3 % (10-50); Mean Corpuscular HGB Conc 33.1 g/dL (31.8-35.4); Mean Corpuscular Hemoglobin 29.1 pg (27.0-31.2); Mean Corpuscular Volume 87.9 fl (80-94); Mean Platelet Volume 7.6 fl (7.4-10.4); Monocytes # 0.5 K/mm3 (0.1-1.0); Monocytes % 5.8 % (1.7-9.3); Neutrophils # 6.7 K/mm3 (1.8-7.8); Neutrophils % 77.9 % (37.0-80.0); Platelet Count 248 K/mm3 (142-424); Red Blood Count 4.57 M/mm3 (4.60-6.20); Red Cell Distribution Width 13.5 % (11.5-17.5); White Blood Count 8.6 K/mm3 (4.8-10.8)
[2022-10-21 17:41] LABS: Troponin I < 0.01 ng/ml (0.00-0.034)
--- NOTE | 2022-10-21 18:12 | PC.NURSE ---
pt covid swab sent to lab per Brody Farley RN
[2022-10-21 18:24] LABS: Coronavirus 19, PCR Not Detected (NotDetected); Influenza A, PCR Not Detected (NotDetected); Influenza B, PCR Not Detected (NotDetected)
--- NOTE | 2022-10-21 19:25 | CT_ITS ---
PROCEDURE INFORMATION: Exam: CTA Chest With Contrast Exam date and time: 10/21/2022 8:39 PM Age: 72 years old Clinical indication: Shortness of breath; Additional info: Shortness of air, history of abnormal CT in TECHNIQUE: Imaging protocol: Computed tomographic angiography of the chest with contrast. 3D rendering (Not supervised by radiologist): MIP and/or 3D reconstructed images were created by the technologist. Radiation optimization: All CT scans at this facility use at least one of these dose optimization techniques: automated exposure control; mA and/or kV adjustment per patient size (includes targeted exams where dose is matched to clinical indication); or iterative reconstruction. Contrast material: ISOVUE; Contrast volume: 70 ml; Contrast route: INTRAVENOUS (IV); REPORTING DATA: Count of CT and Cardiac NM exams in prior 12 months: This patient has received 2 known CTs and 0 known cardiac nuclear medicine studies in the 12 months prior to the current study. COMPARISON: CT ANGIO CHEST PE PROTOCOL 04/11/2022 1:43 PM FINDINGS: Pulmonary arteries: There is suboptimal opacification of pulmonary arteries due to contrast bolus timing. Aorta: Regions of atherosclerotic vascular calcification involving the aortic arch. Lungs: Mild changes of bronchiectasis with peribronchial thickening most pronounced at the lung bases again demonstrated. Pleural spaces: Persistent bilateral regions of pleural reactive change. Previously demonstrated 8.8 mm pulmonary nodule again identified in the right upper lobe. (series 5, image number 26). Additional nodular densities again identified in the right upper lobe. Subtle nodular opacities also present in the left upper lobe. Findings stable. Resolution of previously demonstrated small bilateral pleural effusions. Heart: Previously demonstrated small pericardial effusion has resolved. Coronary arteries: Findings suggestive of coronary artery stent placement. Lymph nodes: Persistent mildly prominent pretracheal lymph nodes stable. Bones/joints: Unremarkable. No acute fracture. Soft tissues: Unremarkable. Other findings: Evidence of prior granulomatous disease. IMPRESSION: 1. No large or central pulmonary embolus. Evaluation of the peripheral pulmonary arteries is limited. 2. Persistent stable 8.8 mm pulmonary nodule right upper lobe unchanged since 04/11/2022. For both low risk and high risk patients, consider CT Chest at 3 months, PET/CT, or biopsy. (Reference: [place]) 3. Mild changes of bronchiectasis. 4. Resolution of small bilateral pleural effusions and pericardial effusion. REFERENCES: [place] Harper, et al. Guidelines for Management of Incidental Pulmonary Nodules Detected on CT Images: From the Fleischner Society 2017. Radiology. 2017;284(1):228-243.
[2022-10-21 20:12] LABS: Troponin I < 0.01 ng/ml (0.00-0.034)
--- NOTE | 2022-10-21 20:24 | EXP.HP ---
History of Present Illness *Admission Date: 10/21/22 *Reason for visit:: Shortness of air *History of present illness: Mr. Mosher is a 72-year-old male who [facility] [place]. He has a past medical history of Bilateral Carotid Stenosis, Cardiomyopathy, CAD, history of Atrial Fibrillation, not on chronic anticoagulation, history of tobacco abuse, quit in 2007, smoked 1 pack per day from [id number]. He presents to [facility] through the ER due to a 2-week history of progressive shortness of air, worst over the last 2 days. He reports that the shortness of air is severe and to the point he is unable to do his activities of daily living. He reports orthopnea and dyspnea with any exertion. He also reports a 20 pound weight loss unintentional over the last year. In the ER, he underwent a Cxray that showed no acute cardiopulmonary findings, CBC was unremarkable. CMP showed a sodium level of 115. Patient was euvolemic on exam. He is noted to have sodium levels that run chronically low, in 2021 sodium level was at 125 in both December and April. He is also noted to have undergone a CT of the chest in 04/2022 that showed an 8.8 mm pulmonary nodule in the right upper lobe. The patient will be admitted with initial impression: Hyponatremia. Sodium studies have been ordered. [facility] Disclaimer: The information contained in this section may have been updated after the patient was seen, as this information can be updated by other users. 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 [employer] caffeine: No Review of Systems Review of Systems Review of systems:: pertinent systems reviewed and negative unless documented below Constitutional Constitutional: Reports system reviewed and no additional complaints, except as documented Eyes Eyes: Reports system reviewed and no additional complaints, except as documented ENT Ears, Nose, Mouth, and Throat: Reports system reviewed and no additional complaints, except as documented *Cardiovascular Cardiovascular: Reports dyspnea, Reports dyspnea on exertion and Reports paroxysmal nocturnal dyspnea *Respiratory Respiratory: Reports dyspnea, Reports dyspnea on exertion and Reports pain on inspiration *Gastrointestinal Gastrointestinal: Reports system reviewed and no additional complaints, except as documented *Genitourinary Genitourinary: Reports system reviewed and no additional complaints, except as documented *Musculoskeletal Musculoskeletal: Reports system reviewed and no additional complaints, except as documented Integumentary/Breasts Skin/Breast: Reports system reviewed and no additional complaints, except as documented *Neurologic Neurologic: Reports system reviewed and no additional complaints, except as documented Psychiatric Psychiatric: Reports system reviewed and no additional complaints, except as documented Endocrine Endocrine: Reports system reviewed and no additional complaints, except as documented Hematologic/Lymphatic Hematologic/Lymphatic: Reports system reviewed and no additional complaints, except as documented Allergic/Immunologic Allergic/Immunologic: Reports system reviewed and no additional complaints, except as documented Meds Home Medications and Allergies Home Medications Medication Instructions Recorded Confirmed Type aspirin 81 mg
[2022-10-21 20:50] LABS: NT Pro Brain Natriuretic Pep. 2220 pg/mL (0-125)
--- NOTE | 2022-10-21 21:27 | PC.NURSE ---
pt admitted to 219 from ER, asked house to get hypertonic saline for this RN to start for hyponatremia
--- NOTE | 2022-10-21 21:30 | PC.NURSE ---
Report called Tiara RUIZ on [place]
[2022-10-21 22:33] LABS: Sodium 116 mmol/L (136-145)
[2022-10-21 22:49] LABS: Troponin I < 0.01 ng/ml (0.00-0.034)
[2022-10-22] VITALS (24 sets, daily range): BP systolic 110–155; BP diastolic 57–89; PULSE 80–111; RESP 18–30; TEMP 36.4–36.9; O2SAT 89–100; BMI 19.8
--- NOTE | 2022-10-22 00:18 | PC.NURSE ---
pt's oxygen saturation decreasing to 87%, pt with labored breathing and shortness of air, placed 2LNC on pt and sats 92-96% pt requested neb treatment and uses inhaler at home but nothing ordered, notified FELISA Faustin of pt's request, CLAIM TAKER to place orders
--- NOTE | 2022-10-22 00:21 | PC.NURSE ---
notified FELISA durham that pt has no VTE orders, WEBSITE DESIGNER to place orders
[2022-10-22 00:30] LABS: Sodium 119 mmol/L (136-145)
[2022-10-22 04:52] LABS: Sodium 121 mmol/L (136-145)
[2022-10-22 07:15] LABS: Sodium 121 mmol/L (136-145)
[2022-10-22 08:05] LABS: Sodium 123 mmol/L (136-145)
--- NOTE | 2022-10-22 09:22 | PC.NURSE ---
intake from multiple shifts
--- NOTE | 2022-10-22 09:30 | EXP.PULM.CON ---
History of Present Illness History of present illness: Mr. Mosher is a prior smoker greater than [id number] smoking, last smoked 2007. Presented to the ER with 2-week history of progressive worsening respiratory distress along with unintentional weight loss of 20 pounds in the last 1 year or pulm and pulmonary was called for further evaluation of his abnormal CT chest [facility] Disclaimer: The information contained in this section may have been updated after the patient was seen, as this information can be updated by other users. 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 [employer] caffeine: No Review of Systems Constitutional Constitutional: Reports anorexia, Reports body ache(s), Reports fatigue and Reports weight loss Eyes Eyes: Denies eye discharge, Denies dry eyes, Denies irritation and Denies itchy eyes ENT Ears, Nose, Mouth, and Throat: Denies epistaxis, Denies facial pain, Denies lip swelling and Denies throat swelling *Cardiovascular Cardiovascular: Reports dyspnea and Reports dyspnea on exertion *Respiratory Respiratory: Reports chest congestion, Reports cough, Reports dyspnea, Reports dyspnea on exertion, Reports excessive phlegm production, Denies hemoptysis, Denies pain on inspiration and Reports wheezing *Gastrointestinal Gastrointestinal: Denies abdominal pain, Denies belching and Denies cramping *Musculoskeletal Musculoskeletal: Reports back pain, Reports myalgias and Reports other (No small joint swelling or Pain) *Neurologic Neurologic: Reports system reviewed and no additional complaints, except as documented Psychiatric Psychiatric: Denies homicidal ideation and Denies suicidal ideation Endocrine Endocrine: Reports fatigue and Denies heat intolerance Hematologic/Lymphatic Hematologic/Lymphatic: Denies easy bleeding and Denies lymphadenopathy Allergic/Immunologic Allergic/Immunologic: Denies itchy eyes, Denies lip swelling, Denies throat swelling and Reports wheezing Pulmonology Exam Inpatient Vital signs and Labs for Last 24 Hours: Temp Pulse Resp BP Pulse Ox 97.8 F 87 18 155/74 H 100 10/22/22 09:00 10/22/22 09:00 10/22/22 09:00 10/22/22 09:00 10/22/22 09:00 Laboratory Results - last 24 hr 10/21/22 16:55: WBC 8.6, RBC 4.57 L, Hgb 13.3 L, Hct 40.2 L, MCV 87.9, MCH 29.1, MCHC 33.1, RDW 13.5, Plt Count 248, MPV 7.6, Neut % (Auto) 77.9, Lymph % (Auto) 13.3, [place] % (Auto) 5.8, Eos % (Auto) 2.7, Baso % (Auto) 0.2, Neut # (Auto) 6.7, Lymph # (Auto) 1.1, [place] # (Auto) 0.5, Eos # (Auto) 0.2, Baso # (Auto) 0.0 10/21/22 16:55: Sodium 115 L, Potassium 5.0, Chloride 77 L, Carbon Dioxide 35 H, Anion Gap 8.0, BUN 9, Creatinine 0.50 L, Estimated Creat Clear 60, Estimated GFR 163, Est GFR ( Amer) 198, Glucose 108 H, Calcium 8.0 L, Troponin I < 0.01 10/21/22 18:00: SARS-CoV-2 (PCR) Not detected, Influenza A Untype (PCR) Not detected, Influenza Type B (PCR) Not detected 10/21/22 19:15: Troponin I < 0.01 10/21/22 19:15: NT-Pro-B Natriuret Pep 2220 H 10/21/22 22:15: Troponin I < 0.01 10/21/22 22:15: Sodium 116 L 10/22/22 00:15: Sodium 119 L 10/22/22 04:35: Sodium 121 L 10/22/22 06:37: Sodium 121 L 10/22/22 07:50: Sodium 123 L I & O for Labs for Last 24 Hours: Intake & Output 10/19/22 10/20/22 10/21/22 10/22/22 23:59 23:59 23:59 23:59 Intake Total 600 / 600 Output Total 550 / 550 0 /
--- NOTE | 2022-10-22 09:37 | P.CONPHA_ITS ---
Pharmacy Intervention Comments: Reconciled patient's home medications using patient interview and medication list from [facility].
--- NOTE | 2022-10-22 09:37 | HMH.PHAINT1 ---
Pharmacy Intervention Comments: Reconciled patient's home medications using patient interview and medication list from [facility].
[2022-10-22 09:43] LABS: Basophils % 0.1 % (0.1-2.0); Eosinophils % 0.5 % (0.1-12.0); Hematocrit 41.7 % (42.0-52.0); Hemoglobin 13.6 g/dL (14.1-18.0); Lymphocytes # 0.3 K/mm3 (0.7-4.5); Lymphocytes % 5.9 % (10-50); Mean Corpuscular HGB Conc 32.7 g/dL (31.8-35.4); Mean Corpuscular Hemoglobin 28.9 pg (27.0-31.2); Mean Corpuscular Volume 88.2 fl (80-94); Mean Platelet Volume 7.1 fl (7.4-10.4); Monocytes # 0.1 K/mm3 (0.1-1.0); Neutrophils # 4.9 K/mm3 (1.8-7.8); Neutrophils % 91.6 % (37.0-80.0); Platelet Count 253 K/mm3 (142-424); Red Blood Count 4.72 M/mm3 (4.60-6.20); Red Cell Distribution Width 13.3 % (11.5-17.5); White Blood Count 5.3 K/mm3 (4.8-10.8)
[2022-10-22 09:49] LABS: MANUAL DIFFERENTIAL MANUAL DIFFERENTIAL (MANUAL DIFF)
[2022-10-22 09:51] LABS: Chloride 83 mmol/L (98-107); Potassium 4.5 mmoL/L (3.5-5.1); Sodium 123 mmol/L (136-145)
[2022-10-22 09:53] LABS: Alanine Aminotransferase 29 U/L (12-78); Aspartate Amino Transferase 44 U/L (17-59); Bilirubin,Total 0.4 mg/dl (0.2-1.3); Blood Urea Nitrogen 8 mg/dl (9-20); Creatinine Clearance Estimated 59 mL/min (50-200); Estimated Glomerular Filt Rate 163 ml/min (>60); GFR (African American) 198 ML/MIN (>60)
[2022-10-22 09:54] LABS: Albumin Level 3.6 g/dl (3.5-5.0); Albumin/Globulin Ratio 1.3 (1.1-1.8); Alkaline Phosphatase 69 U/L (38-126); Anion Gap 7.5 mEq/L (5-15); Calcium 8.5 mg/dl (8.4-10.2); Carbon Dioxide 37 mmol/L (22.0-30.0); Globulin 2.7 g/dL (1.3-3.2); Glucose 201 mg/dl (74-100); Total Protein,Serum 6.3 g/dl (6.3-8.2)
[2022-10-22 10:01] LABS: Lymphocytes % 9 % (10-50); Monocytes % 1 % (2-9); Neutrophils % 90 % (42-76); Platelet Estimate Normal; RBC Morphology Normal; Total Cells Counted 100
--- NOTE | 2022-10-22 11:38 | CARE MANAGER ---
[facility] and [facility] are no [facility] available.
--- NOTE | 2022-10-22 11:57 | EXP.DC.SUM ---
General Admission date:: 10/21/22 Discharge date: 10/22/22 HPI HPI HPI: Mr. Mosher is a 72-year-old male who [facility] [place] He has a past medical history of Bilateral Carotid Stenosis, Cardiomyopathy, CAD, history of Atrial Fibrillation, not on chronic anticoagulation, history of tobacco abuse, quit in 2007, smoked 1 pack per day from [id number]. He presents to [facility] through the ER due to a 2-week history of progressive shortness of air, worst over the last 2 days. He reports that the shortness of air is severe and to the point he is unable to do his activities of daily living. He reports orthopnea and dyspnea with any exertion. He also reports a 20 pound weight loss unintentional over the last year. In the ER, he underwent a Cxray that showed no acute cardiopulmonary findings, CBC was unremarkable. CMP showed a sodium level of 115. Patient was euvolemic on exam. He is noted to have sodium levels that run chronically low, in 2021 sodium level was at 125 in both December and April. He is also noted to have undergone a CT of the chest in 04/2022 that showed an 8.8 mm pulmonary nodule in the right upper lobe. The patient will be admitted with initial impression: Hyponatremia. Sodium studies have been ordered. Hospital Course Hospital Course Hospital Course: 72-year-old male with history of Atrial Fibrillation, not on chronic anticoagulation, Bilateral Carotid stenosis, CAD presents with 2-week history of progressive shortness of air with further worsening over the last 2-days. Responded well to hypertonic saline. Sodium improved to mid 120s. Remained alert, oriented, baseline level of function. Stable for discharge home. Problems addressed as follows: - Hyponatremia Found to be 115 on evaluation in the ER. Admitted for treatment. Started on hypertonic saline. Patient denies any symptoms including headache, confusion, chest pain, syncope. Sodium gradually improved within an appropriate rate of approximately 0.5 mEq/h. Sodium 123 prior to discharge. Appears chronically low in 2021 at 125 in both December and April. Urine sodium and osmolality obtained, still pending at discharge. BNP on admission was 2220. Diuresed x1 given concern for CHF component. Echo ordered, formal read pending at discharge. Patient appears euvolemic on exam. Of concern, CTA of his chest from 2021 showed an 8.8 mm pulmonary nodule in the right upper lobe. With his extensive smoking history, concerned that this may be an etiology for his hyponatremia. Additionally other etiologies include patient's beer intake. Given absence of neurologic symptoms, appears that this is a chronic problem. Would benefit from further work-up with check writer salesperson at the [facility] and PCP within the [facility]. He follows closely with them as it is. - COPD exacerbation - Dyspnea With Abnormal CT chest. Pulmonary consulted. Appreciate their recommendations. Patient initiated on Trelegy 100 inhaler. Started on azithromycin 500 mg daily and prednisone 40 mg daily for 5 days. We will continue these at discharge. Continue DuoNebs every 6 hours on as-needed basis. 6-minute walk testing performed. Patient did not qualify for oxygen. Follow with sputum Gram stain AFB culture sensitivit -Atrial Fibrillation Chronic per history. Continue home bisoprolol. No chronic anticoagulation. Defer decision for anticoagulation to PCP Stable for discharge home. Follow-up with pulmonology at the [facility] as he is already established. Defer further work-up for hyponatremia to patient's PCP and check writer salesperson at the [facility]. Spent 40 minutes in discharge counseling and direct care with patient. Exam Data for Last 24 hours Vital signs and Labs for Last 24 Hours: Temp Pulse Resp BP Pulse Ox 98.3 F 95 H 20 147/68 H 92 L 10/22/22 11:24 10/22/22 10:00 10/22/22 10:00 10/22/22 10:00 10/22/22 11:14 Laboratory Results - last 24 hr 10/21/22 16:55: WBC
--- NOTE | 2022-10-22 12:24 | PC.NURSE ---
1205 hypertonic solution stopped at this time per MD order during huddle.
[2022-10-22 13:22] LABS: Chloride 84 mmol/L (98-107); Potassium 3.9 mmoL/L (3.5-5.1); Sodium 123 mmol/L (136-145)
[2022-10-22 13:25] LABS: Anion Gap 9.9 mEq/L (5-15); Blood Urea Nitrogen 10 mg/dl (9-20); Calcium 8.2 mg/dl (8.4-10.2); Carbon Dioxide 33 mmol/L (22.0-30.0); Creatinine Clearance Estimated 59 mL/min (50-200); Estimated Glomerular Filt Rate 163 ml/min (>60); GFR (African American) 198 ML/MIN (>60); Glucose 160 mg/dl (74-100)
--- NOTE | 2022-10-22 15:14 | HMH.PHAINT1 ---
Pharmacy Intervention Comments: Counseled patient on 4 medications to START on discharge (Ventolin HFA, prednisone, azithromycin, DuoNeb). Patient expressed understanding of medication's indication, dose, route, frequency, and potential side effects.
--- NOTE | 2022-10-22 15:15 | HMH.PHAINT1 ---
Pharmacy Intervention Comments: Counseled patient on 4 medications to START at discharge (prednisone, Ventolin HFA, DuoNeb, azithromycin). Patient expressed understanding of medications' indication, dose, route, frequency, and potential side effects.
[2022-10-23 12:09] LABS: Sodium, Urine 30 mmol/L (Not Estab.)
--- NOTE | 2022-10-23 13:26 | CARE MANAGER ---
Contacted patient related to hospital discharge. He has medications and is aware of follow up appointment. Denies any questions or concerns. JOSEPH Gutierrez
[2022-10-27 11:57] LABS: Legionella pneumophila Urinary Negative (Negative)
== END 2022-10-22 16:40 | disposition home or self-care (01) | DRG 641 ==
LOC: ER 19:21 → 2ND 20:28
PROVIDERS: Nurse Practitioner Family; Admitting Provider Internal Medicine Adolescent Medicine; Emergency Provider Emergency Medicine; Visit Provider Internal Medicine Adolescent Medicine
DX: E87.1 Hypo-osmolality and hyponatremia (principal); J44.1 Chronic obstructive pulmonary disease with (acute) exacerbation; I42.9 Cardiomyopathy, unspecified; I25.10 Atherosclerotic heart disease of native coronary artery without angina pectoris; I48.91 Unspecified atrial fibrillation; Z87.891 Personal history of nicotine dependence; Z79.899 Other long term (current) drug therapy
CPT/HCPCS: 36415; 71045; 71275; 80048; 80053; 83880; 84295; 84300; 84484; 85007; 85025; 87116; 87186; 87206; 93005; 93306; 94618; 94640; 99285; C9803; Q9967; U0003; U0005

== ENCOUNTER 2022-11-09 09:16 | Emergency (ER) | payer OTHER, SELFPAY ==
[2022-11-09] VITALS (15 sets, daily range): BP systolic 125–208; BP diastolic 74–120; PULSE 93–100; RESP 13–20; TEMP 36.7–36.9; O2SAT 86–100; BMI 24.3
--- NOTE | 2022-11-09 09:16 | ECG_ITS ---
APPROVED REPORT Exam: Resting ECG HR:96 bpm ECG Measurements Heart Rate 96 AXES AR 165 P 94 QRSd 110 QRS 87 QT 378 T -27 QTc 432 Conclusion SINUS RHYTHM VOLTAGE CRITERIA FOR LVH [MEETS CRITERIA IN ONE OF: R(aVL), S(V1), R(V5), R(V5/V6)+S(V1)] NONSPECIFIC T-WAVE ABNORMALITY ABNORMAL ECG UNCONFIRMED REPORT Electronically signed by : Yfn Sandhu MD 11/10/2022 22:08:37
--- NOTE | 2022-11-09 09:32 | XR_ITS ---
FINAL REPORT CLINICAL HISTORY: SOA, recent bronch COMPARISON: 10/21/2022 FINDINGS: There is a moderate to large right pneumothorax which is new from the prior exam. The left lung is clear. There is no evidence of effusion or other pleural disease. The mediastinum has a normal appearance. The cardiac silhouette is unremarkable. IMPRESSION: Moderate to large right pneumothorax without definite tension component. The patient's nurse, Bridger Ann, was notified of these findings at 10:45 a.m. on 11/09/2022 Reviewed, Interpreted and Dictated by Rasta Busby MD Transcribed by Meme Mohr Authenticated and . [facility]
--- NOTE | 2022-11-09 09:33 | HMH.EDGENADL ---
Discharge Plan Disposition Patient Disposition: Xfer Intermediate Care Fac Condition: Fair Chief Complaint: Shortness of Breath/Dyspnea Prescriptions Prescriptions: No Action atorvastatin 80 mg Tablet 80 mg PO DAILY ipratropium-albuterol 0.5 mg-3 mg(2.5 mg base)/3 mL Solution For Nebulization 3 ml INHALATION QID bisoprolol fumarate 10 mg Tablet 10 mg PO DAILY lisinopril 10 mg Tablet 10 mg PO DAILY fluticasone propion-salmeterol [Wixela Inhub] 500-50 mcg/dose Blister With Device 1 inh INHALATION BID furosemide 20 mg Tablet 20 mg PO DAILYP PRN (Reason: Fluid) albuterol sulfate 90 mcg/actuation Hfa Aerosol Inhaler 2 puff INHALATION Q4H PRN (Reason: Shortness of air) Spiriva Respimat 2.5 mcg/actuation Mist 2 puff INHALATION DAILY apixaban 5 mg Tablet 5 mg PO BID ipratropium-albuterol 0.5 mg-3 mg(2.5 mg base)/3 mL Solution For Nebulization 3 ml inhalation Q6HP PRN (Reason: Shortness Of Breath) 30 Days Qty: 120 0RF albuterol sulfate [Ventolin HFA] 90 mcg/actuation Hfa Aerosol Inhaler 2 puff inhalation Q4HP PRN (Reason: Shortness Of Breath) 30 Days Qty: 0 0RF azithromycin 250 mg Tablet 500 mg PO DAILY 4 Days Qty: 8 0RF prednisone 20 mg Tablet 40 mg PO DAILY 4 Days Qty: 8 0RF aspirin 81 MG tablet,delayed release (DR/EC) 81 mg PO DAILY Referrals Follow up/Referrals: Provider,Referral, MD [Referring] - See instructions Clinical Impressions Clinical Impression: Tension pneumothorax Discharge ED Provider: Billy Cabral General Adult HPI General Chief complaint: Shortness of Breath/Dyspnea Stated complaint: SOA Time Seen by Provider: 11/09/22 09:28 History of Present Illness HPI narrative: This is a 72-year-old male with history of COPD not currently on home oxygen, hypertension, hyperlipidemia, CAD, CHF, A-fib on Eliquis presenting with shortness of breath. Patient states that he had a bronchoscopy on Monday 11/06. Since that time, patient has developed dizziness. He is also associated shortness of breath. Dizziness started 1 day prior to arrival, he was sitting on the couch when it started. Associated with shortness of breath that is exertional. Denies cough, fevers, chills, nausea, vomiting, chest pain, neurologic deficits. He has had similar symptoms in the past, but these are persistent. Not currently having dizziness, symptoms are exertional, as stated above. Related Data Home Medications Medication Instructions Recorded Confirmed aspirin 81 mg tablet,delayed 81 mg PO DAILY Heart health 12/19/21 10/22/22 release albuterol sulfate 90 mcg/actuation 2 puff inhalation Q4H PRN 10/22/22 10/22/22 aerosol inhaler Shortness of air apixaban 5 mg tablet 5 mg PO BID Blood thinner, CAD 10/22/22 10/22/22 atorvastatin 80 mg tablet 80 mg PO DAILY Cholesterol 10/22/22 10/22/22 bisoprolol fumarate 10 mg tablet 10 mg PO DAILY High blood pressure 10/22/22 10/22/22 fluticasone 500 mcg-salmeterol 50 1 inh inhalation BID COPD 10/22/22 10/22/22 mcg/dose blistr powdr for inhalation (Wixela Inhub) furosemide 20 mg tablet 20 mg PO DAILYP PRN Fluid 10/22/22 10/22/22 ipratropium 0.5 mg-albuterol 3 mg 3 ml inhalation QID Shortness of 10/22/22 10/22/22 (2.5 mg base)/3 mL nebulization air soln lisinopril 10 mg tablet 10 mg PO DAILY High blood pressure 10/22/22 10/22/22 tiotropium bromide 2.5 2 puff inhalation DAILY COPD 10/22/22 10/22/22 mcg/actuation mist for inhalation (Spiriva Respimat) Previous Rx's Medication Instructions Recorded albuterol sulfate 90 mcg/actuation 2 puff inhalation Q4HP PRN 10/22/22 aerosol inhaler (Ventolin HFA) Shortness Of Breath 30 days #0 grams azithromycin 250 mg tablet 500 mg PO DAILY 4 days #8 tabs 10/22/22 ipratropium 0.5 mg-albuterol 3 mg 3 ml inhalation Q6HP PRN Shortness 10/22/22 (2.5 mg base)/3 mL nebulization Of Breath 30 days #120 ea soln prednisone 20 mg tablet 40 mg PO DAILY 4 days
[2022-11-09 09:50] LABS: Potassium 4.3 mmoL/L (3.5-5.1); Sodium 117 mmol/L (136-145)
[2022-11-09 09:52] LABS: Alanine Aminotransferase 40 U/L (12-78); Aspartate Amino Transferase 66 U/L (17-59); Basophils % 0.1 % (0.1-2.0); Blood Urea Nitrogen 20 mg/dl (9-20); Creatinine Clearance Estimated 73 mL/min (50-200); Eosinophils % 0.4 % (0.1-12.0); Estimated Glomerular Filt Rate 211 ml/min (>60); GFR (African American) 256 ML/MIN (>60); Hematocrit 44.8 % (42.0-52.0); Hemoglobin 14.6 g/dL (14.1-18.0); Lymphocytes # 0.4 K/mm3 (0.7-4.5); Lymphocytes % 6.4 % (10-50); Mean Corpuscular HGB Conc 32.7 g/dL (31.8-35.4); Mean Corpuscular Hemoglobin 29.5 pg (27.0-31.2); Mean Corpuscular Volume 90.1 fl (80-94); Monocytes # 0.2 K/mm3 (0.1-1.0); Monocytes % 3.5 % (1.7-9.3); Neutrophils # 6.1 K/mm3 (1.8-7.8); Neutrophils % 89.7 % (37.0-80.0); Platelet Count 249 K/mm3 (142-424); Red Blood Count 4.97 M/mm3 (4.60-6.20); Red Cell Distribution Width 13.8 % (11.5-17.5); White Blood Count 6.8 K/mm3 (4.8-10.8)
[2022-11-09 09:53] LABS: Albumin Level 4.4 g/dl (3.5-5.0); Albumin/Globulin Ratio 1.5 (1.1-1.8); Alkaline Phosphatase 72 U/L (38-126); Anion Gap 15.3 mEq/L (5-15); Bilirubin,Total 1.1 mg/dl (0.2-1.3); Calcium 8.5 mg/dl (8.4-10.2); Carbon Dioxide 34 mmol/L (22.0-30.0); Glucose 130 mg/dl (74-100); Total Protein,Serum 7.4 g/dl (6.3-8.2)
[2022-11-09 09:56] LABS: MANUAL DIFFERENTIAL MANUAL DIFFERENTIAL (MANUAL DIFF)
--- NOTE | 2022-11-09 10:04 | PC.NURSE ---
rounded on pt he was sleeping in bed,call light at [facility]
[2022-11-09 10:06] LABS: Chloride 72 mmol/L (98-107); Troponin I 0.02 ng/ml (0.00-0.034)
[2022-11-09 10:11] LABS: T4 (Thyroxine) 9.3 ug/dl (5.53-11.0)
[2022-11-09 10:18] LABS: Lymphocytes % 7 % (10-50); Neutrophils % 93 % (42-76); Total Cells Counted 100
[2022-11-09 10:19] LABS: Platelet Estimate Normal; RBC Morphology Normal
[2022-11-09 10:20] LABS: ABG Base Excess 7.6 mmol/L (-2.4-2.3); ABG HCO3 33.8 mmhg (22.0-26.0); ABG Oxygen Saturation 96 % (90-100); ABG PH 7.31 mmol/L (7.35-7.45); ABG TCO2 35.9 mmhg (23-27)
[2022-11-09 10:22] LABS: Allen's Test Acceptable; Oxygen 3L %; Source Left Radial
[2022-11-09 10:23] LABS: ABG PCO2 68.4 mmhg (35.0-45.0)
[2022-11-09 10:24] LABS: Thyroid Stimulating Hormone 0.68 uIU/mL (0.465-4.68)
[2022-11-09 10:41] LABS: Lactic Acid 0.8 mmol/L (0.7-2.1)
--- NOTE | 2022-11-09 10:50 | CT_ITS ---
FINAL REPORT CLINICAL HISTORY: R pneumo COMPARISON: 10/21/2022 FINDINGS: CT CHEST without contrast TECHNIQUE: Axial CT without IV contrast administration. FINDINGS: There are few tiny 5 mm or less subpleural nodules scattered within the left lung. A large right pneumothorax with a tension component is noted. The right lung collapse does not allow evaluation of the right lung parenchyma. The associated tension component causes shift of the mediastinal structures. There is mild mediastinal adenopathy which is stable and nonspecific. IMPRESSION: Interval development of large right tension pneumothorax. The pneumothorax may be minimally worse since the chest x-ray earlier same day. The emergency room was notified of these findings at 12:05 p.m. on 11/09/2022 This study was performed using automated techniques to achieve radiation exposure as low as reasonably achievable Reviewed, Interpreted and Dictated by Rasta Busby MD Transcribed by Meme Mohr Authenticated and [facility]
--- NOTE | 2022-11-09 12:05 | PC.NURSE ---
[facility] Coord[facility] has been contacted about admission. They are contacting the MD will give us a call back
--- NOTE | 2022-11-09 12:07 | PC.NURSE ---
DR SUMMERS SPEAKING WITH DR OLIVEIRA
--- NOTE | 2022-11-09 12:14 | PC.NURSE ---
rounded on pt he sleeping in bed,call light at bs
--- NOTE | 2022-11-09 12:25 | PC.NURSE ---
UPDATED AT THIS TIME PER PT REQUEST
--- NOTE | 2022-11-09 12:28 | PC.NURSE ---
Dr.Warner Gardner, Nurse Nelia, luis enrique Rojas at placing chest tube
--- NOTE | 2022-11-09 12:36 | PC.NURSE ---
[facility] called with to speak with ed , relayed message that was at [facility] placing chest tube and would return his call when finished
--- NOTE | 2022-11-09 12:50 | PC.NURSE ---
Rounded on patient; all personal belonging's placed in personal belonging's bag. Ye light within reach
--- NOTE | 2022-11-09 12:50 | PC.NURSE ---
calling [facility] to let to speak with er md Fairchild about pt and transferring to [facility]
--- NOTE | 2022-11-09 12:51 | PC.NURSE ---
is speaking with at the [facility]
--- NOTE | 2022-11-09 12:54 | XR_ITS ---
FINAL REPORT CLINICAL HISTORY: chest tube placement COMPARISON: Earlier same day FINDINGS: There is a tiny residual right pneumothorax measuring less than 5% with interval pigtail pleural catheter placement. Mild right lung atelectasis is noted. The left lung is clear. Mediastinum is unremarkable. Heart size is normal. IMPRESSION: Near complete resolution of right pneumothorax following pigtail pleural catheter placement. Reviewed, Interpreted and Dictated by Rasta Busby MD Transcribed by Meme Mohr Authenticated and [facility]
--- NOTE | 2022-11-09 12:55 | PC.NURSE ---
called RAD for post chest tube placement
[2022-11-09 13:00] LABS: Coronavirus 19, PCR Not Detected (NotDetected); Influenza A, PCR Not Detected (NotDetected); Influenza B, PCR Not Detected (NotDetected)
--- NOTE | 2022-11-09 13:00 | PC.NURSE ---
Radiology @ [facility] for portable chest xray
[2022-11-09 13:34] LABS: Troponin I 0.02 ng/ml (0.00-0.034)
--- NOTE | 2022-11-09 13:34 | PC.NURSE ---
The [facility] called requesting [facility]. Said they would call back with a room
--- NOTE | 2022-11-09 14:13 | PC.NURSE ---
[facility] Called to give bed assignment which will be 546, they said pt will have to stop by er to receive armband and a set of vitals once arriving to the [facility] Gave Michelle the number to call give report to, Jessica will be the nurse at the [facility] taking report @ [phone] ext:[phone]
--- NOTE | 2022-11-09 14:56 | PC.NURSE ---
pt is sleeping,waiting for em to arrive transport pt to [facility], call light at [facility]
--- NOTE | 2022-11-09 15:01 | PC.NURSE ---
called [facility] for transport
--- NOTE | 2022-11-09 15:14 | PC.NURSE ---
ashley is here to transfer pt to [facility]
== END 2022-11-09 15:36 ==
PROVIDERS: Emergency Provider Emergency Medicine; PCP Nurse Practitioner Family
DX: J93.0 Spontaneous tension pneumothorax (principal)
CPT/HCPCS: 32551; 36415; 71045; 71046; 71250; 80053; 82803; 83605; 84436; 84443; 84484; 85007; 85025; 87040; 87077; 87186; 93005; 99291; C9803; U0003; U0005

== ENCOUNTER 2023-05-12 12:53 | Emergency (ER) | payer OTHER, SELFPAY ==
[2023-05-12 13:00] VITALS: BP 122/64; PULSE 76; RESP 18; TEMP 36.7; O2SAT 96
--- NOTE | 2023-05-12 13:02 | EXP.UTC ---
Discharge Plan Disposition Patient Disposition: Home, Self-Care Condition: Good Prescriptions Prescriptions: No Action atorvastatin 80 mg Tablet 80 mg PO DAILY ipratropium-albuterol 0.5 mg-3 mg(2.5 mg base)/3 mL Solution For Nebulization 3 ml INHALATION QID bisoprolol fumarate 10 mg Tablet 10 mg PO DAILY lisinopril 10 mg Tablet 10 mg PO DAILY fluticasone propion-salmeterol [Wixela Inhub] 500-50 mcg/dose Blister With Device 1 inh INHALATION BID furosemide 20 mg Tablet 20 mg PO DAILYP PRN (Reason: Fluid) albuterol sulfate 90 mcg/actuation Hfa Aerosol Inhaler 2 puff INHALATION Q4H PRN (Reason: Shortness of air) Spiriva Respimat 2.5 mcg/actuation Mist 2 puff INHALATION DAILY apixaban 5 mg Tablet 5 mg PO BID ipratropium-albuterol 0.5 mg-3 mg(2.5 mg base)/3 mL Solution For Nebulization 3 ml inhalation Q6HP PRN (Reason: Shortness Of Breath) 30 Days Qty: 120 0RF albuterol sulfate [Ventolin HFA] 90 mcg/actuation Hfa Aerosol Inhaler 2 puff inhalation Q4HP PRN (Reason: Shortness Of Breath) 30 Days Qty: 0 0RF azithromycin 250 mg Tablet 500 mg PO DAILY 4 Days Qty: 8 0RF prednisone 20 mg Tablet 40 mg PO DAILY 4 Days Qty: 8 0RF aspirin 81 MG tablet,delayed release (DR/EC) 81 mg PO DAILY Referrals Follow up/Referrals: Provider,Referral, MD [Primary Care Provider] - See instructions Activity Restrictions/Add. Instructions Additional Instructions/Restrictions: [facility] up at the [facility] as discussed. GO TO THE ER FOR ANY WORSENING SYMPTOMS OR CONCERNS Clinical Impressions Clinical Impression: Shortness of breath Instructions Patient Instructions: DI for Shortness of Breath Discharge ED Provider: Macario Crooks [facility] General Stated complaint: soa Time Seen by Provider: 05/12/23 13:02 History of Present Illness Provider Complaint: He states that he has been feeling more tired and fatigued than his usual over the past few days. [facility] is a [facility] patient. He states that the pa told him to come here to get a chest x-ray. Related Data Home Medications Medication Instructions Recorded Confirmed aspirin 81 mg tablet,delayed 81 mg PO DAILY Heart health 12/19/21 05/12/23 release albuterol sulfate 90 mcg/actuation 2 puff inhalation Q4H PRN 10/22/22 10/22/22 aerosol inhaler Shortness of air apixaban 5 mg tablet 5 mg PO BID Blood thinner, CAD 10/22/22 05/12/23 atorvastatin 80 mg tablet 80 mg PO DAILY Cholesterol 10/22/22 10/22/22 bisoprolol fumarate 10 mg tablet 10 mg PO DAILY High blood pressure 10/22/22 05/12/23 fluticasone 500 mcg-salmeterol 50 1 inh inhalation BID COPD 10/22/22 10/22/22 mcg/dose blistr powdr for inhalation (Wixela Inhub) furosemide 20 mg tablet 20 mg PO DAILYP PRN Fluid 10/22/22 10/22/22 ipratropium 0.5 mg-albuterol 3 mg 3 ml inhalation QID Shortness of 10/22/22 10/22/22 (2.5 mg base)/3 mL nebulization air soln lisinopril 10 mg tablet 10 mg PO DAILY High blood pressure 10/22/22 05/12/23 tiotropium bromide 2.5 2 puff inhalation DAILY COPD 10/22/22 10/22/22 mcg/actuation mist for inhalation (Spiriva Respimat) Previous Rx's Medication Instructions Recorded albuterol sulfate 90 mcg/actuation 2 puff inhalation Q4HP PRN 10/22/22 aerosol inhaler (Ventolin HFA) Shortness Of Breath 30 days #0 grams azithromycin 250 mg tablet 500 mg PO DAILY 4 days #8 tabs 10/22/22 ipratropium 0.5 mg-albuterol 3 mg 3 ml inhalation Q6HP PRN Shortness 10/22/22 (2.5 mg base)/3 mL nebulization Of Breath 30 days #120 ea soln prednisone 20 mg tablet 40 mg PO DAILY 4 days #8 tabs 10/22/22 Allergies Allergy/AdvReac Type Severity Reaction Status Date / Time No Known Allergies Allergy Verified 05/12/23 13:12 [facility] Disclaimer: The information contained in this section may have been updated after the patient was seen, as this information can be updated by other users. Medical History (Updated 05/12/23 @ 14:
--- NOTE | 2023-05-12 13:07 | XR_ITS ---
FINAL REPORT CLINICAL HISTORY: sob COMPARISON: 11/09/2022 FINDINGS: PA and lateral views of the chest are obtained. Previously seen right chest tube is no longer present. The heart and mediastinum are unremarkable. There are coarse bilateral interstitial opacities favored to be chronic. Underlying emphysema is noted. There is no focal infiltrate, effusion, or pneumothorax. IMPRESSION: No radiographic evidence of acute cardiac or pulmonary disease. Reviewed, Interpreted and Dictated by Valerie Boyd MD Transcribed by Meme Mohr Authenticated and [facility]
--- NOTE | 2023-05-12 14:25 | ECG_ITS ---
APPROVED REPORT Exam: Resting ECG HR:72 bpm ECG Measurements Heart Rate 72 AXES WI 176 P 77 QRSd 108 QRS -42 QT 410 T -41 QTc 433 Conclusion SINUS RHYTHM POSSIBLE LEFT ATRIAL ENLARGEMENT [-0.1mV P-WAVE IN V1/V2] LEFT AXIS DEVIATION [QRS AXIS < -30] INFERIOR MYOCARDIAL INFARCTION , OF INDETERMINATE AGE [40+ ms Q WAVE AND/OR ST/T ABNORMALITY IN II/aVF] ANTEROSEPTAL MYOCARDIAL INFARCTION , OF INDETERMINATE AGE [40+ ms Q WAVE IN V1-V4] ABNORMAL ECG UNCONFIRMED REPORT Electronically signed by : Yfn Sandhu MD 05/13/2023 17:32:28
[2023-05-12 14:49] VITALS: BP 122/64; PULSE 76; RESP 18; TEMP 36.7; O2SAT 96
== END 2023-05-12 14:49 | disposition home or self-care (01) ==
PROVIDERS: Emergency Provider Nurse Practitioner Family
DX: R06.02 Shortness of breath (principal); R53.83 Other fatigue; J44.9 Chronic obstructive pulmonary disease, unspecified; I65.29 Occlusion and stenosis of unspecified carotid artery
CPT/HCPCS: 71046; 93005; 99212; 99214; G0463

== ENCOUNTER 2023-05-30 08:50 | Emergency (ER) | payer OTHER, SELFPAY ==
[2023-05-30] VITALS (10 sets, daily range): BP systolic 111–173; BP diastolic 66–93; PULSE 82–94; RESP 13–30; TEMP 36.9; O2SAT 89–98; BMI 19.3
--- NOTE | 2023-05-30 08:50 | ECG_ITS ---
APPROVED REPORT Exam: Resting ECG HR:81 bpm ECG Measurements Heart Rate 81 AXES ME 181 P 79 QRSd 134 QRS 251 QT 405 T -32 QTc 442 Conclusion SINUS RHYTHM INDETERMINATE AXIS INTRAVENTRICULAR CONDUCTION DELAY [130+ ms QRS DURATION] ANTEROSEPTAL MYOCARDIAL INFARCTION , OF INDETERMINATE AGE [40+ ms Q WAVE IN V1-V4] ABNORMAL ECG UNCONFIRMED REPORT Electronically signed by : Yfn Sandhu MD 05/31/2023 08:24:27
--- NOTE | 2023-05-30 08:54 | XR_ITS ---
PROCEDURE INFORMATION: Exam: XR Chest Exam date and time: 05/30/2023 8:58 AM Age: 73 years old Clinical indication: Chest wall pain; Additional info: Cp TECHNIQUE: Imaging protocol: Radiologic exam of the chest. Views: 1 view. COMPARISON: CR XR CHEST 2V 05/12/2023 1:10 PM FINDINGS: Lungs: Chronic coarse interstitial opacities. Emphysematous changes. No focal consolidation. Pleural spaces: Unremarkable. No pleural effusion. No pneumothorax. Heart/Mediastinum: Unremarkable. No cardiomegaly. Bones/joints: Unremarkable. IMPRESSION: No acute findings.
--- NOTE | 2023-05-30 08:55 | HMH.EDCP ---
Discharge Plan Disposition Patient Disposition: Home, Self-Care Prescriptions Prescriptions: No Action atorvastatin 80 mg Tablet 80 mg PO DAILY ipratropium-albuterol 0.5 mg-3 mg(2.5 mg base)/3 mL Solution For Nebulization 3 ml INHALATION QID bisoprolol fumarate 10 mg Tablet 10 mg PO DAILY lisinopril 10 mg Tablet 10 mg PO DAILY fluticasone propion-salmeterol [Wixela Inhub] 500-50 mcg/dose Blister With Device 1 inh INHALATION BID furosemide 20 mg Tablet 20 mg PO DAILYP PRN (Reason: Fluid) albuterol sulfate 90 mcg/actuation Hfa Aerosol Inhaler 2 puff INHALATION Q4H PRN (Reason: Shortness of air) Spiriva Respimat 2.5 mcg/actuation Mist 2 puff INHALATION DAILY apixaban 5 mg Tablet 5 mg PO BID ipratropium-albuterol 0.5 mg-3 mg(2.5 mg base)/3 mL Solution For Nebulization 3 ml inhalation Q6HP PRN (Reason: Shortness Of Breath) 30 Days Qty: 120 0RF albuterol sulfate [Ventolin HFA] 90 mcg/actuation Hfa Aerosol Inhaler 2 puff inhalation Q4HP PRN (Reason: Shortness Of Breath) 30 Days Qty: 0 0RF azithromycin 250 mg Tablet 500 mg PO DAILY 4 Days Qty: 8 0RF prednisone 20 mg Tablet 40 mg PO DAILY 4 Days Qty: 8 0RF aspirin 81 MG tablet,delayed release (DR/EC) 81 mg PO DAILY Activity Restrictions/Add. Instructions Additional Instructions/Restrictions: At this time is felt you are safe to be discharged home. If new or worsening symptoms please do not hesitate to return the emergency department. Please take medications as prescribed and follow-up tomorrow at [address] Mendez. Clinical Impressions Clinical Impression: COPD exacerbation, Chest pain Discharge ED Provider: Julien Smalls HPI General Chief Complaint: Chest Pain Stated Complaint: chest pain Time Seen by Provider: 05/30/23 08:50 History of Present Illness HPI narrative: Patient is a 73-year-old male with past medical history of ACS x 2 status post stenting, previous smoker, previous atrial fibrillation, previous PE on anticoagulation who presents emergency department for evaluation of chest pain and shortness of breath. Onset was acute, occurring after patient drank his coffee. Left parasternal border, moderate to severe in intensity, modified worse with deep inspiration. Due to persistent symptoms he presents here for continued evaluation. Patient does have an cough and shortness of breath. No other acute complaints at this time. Related Data Home Medications Medication Instructions Recorded Confirmed aspirin 81 mg tablet,delayed 81 mg PO DAILY Heart health 12/19/21 05/12/23 release albuterol sulfate 90 mcg/actuation 2 puff inhalation Q4H PRN 10/22/22 10/22/22 aerosol inhaler Shortness of air apixaban 5 mg tablet 5 mg PO BID Blood thinner, CAD 10/22/22 05/12/23 atorvastatin 80 mg tablet 80 mg PO DAILY Cholesterol 10/22/22 10/22/22 bisoprolol fumarate 10 mg tablet 10 mg PO DAILY High blood pressure 10/22/22 05/12/23 fluticasone 500 mcg-salmeterol 50 1 inh inhalation BID COPD 10/22/22 10/22/22 mcg/dose blistr powdr for inhalation (Wixela Inhub) furosemide 20 mg tablet 20 mg PO DAILYP PRN Fluid 10/22/22 10/22/22 ipratropium 0.5 mg-albuterol 3 mg 3 ml inhalation QID Shortness of 10/22/22 10/22/22 (2.5 mg base)/3 mL nebulization air soln lisinopril 10 mg tablet 10 mg PO DAILY High blood pressure 10/22/22 05/12/23 tiotropium bromide 2.5 2 puff inhalation DAILY COPD 10/22/22 10/22/22 mcg/actuation mist for inhalation (Spiriva Respimat) Previous Rx's Medication Instructions Recorded albuterol sulfate 90 mcg/actuation 2 puff inhalation Q4HP PRN 10/22/22 aerosol inhaler (Ventolin HFA) Shortness Of Breath 30 days #0 grams azithromycin 250 mg tablet 500 mg PO DAILY 4 days #8 tabs 10/22/22 ipratropium 0.5 mg-albuterol 3 mg 3 ml inhalation Q6HP PRN Shortness 10/22/22 (2.5 mg base)/3 mL nebulization Of Breath 30 days #120 ea soln prednisone 20 mg tablet 4
--- NOTE | 2023-05-30 09:02 | CT_ITS ---
PROCEDURE INFORMATION: Exam: CTA Chest With Contrast Exam date and time: 05/30/2023 9:29 AM Age: 73 years old Clinical indication: Chest wall pain and left-sided; Additional info: Cp, previous pe, previous ptx, previous nodules TECHNIQUE: Imaging protocol: Computed tomographic angiography of the chest with contrast. Exam focused on the arteries. 3D rendering (Not supervised by radiologist): MIP and/or 3D reconstructed images were created by the technologist. Radiation optimization: All CT scans at this facility use at least one of these dose optimization techniques: automated exposure control; mA and/or kV adjustment per patient size (includes targeted exams where dose is matched to clinical indication); or iterative reconstruction. Contrast material: ISOVUE; Contrast volume: 100 ml; Contrast route: INTRAVENOUS (IV); REPORTING DATA: Count of CT and Cardiac NM exams in prior 12 months: This patient has received 2 known CTs and 0 known cardiac nuclear medicine studies in the 12 months prior to the current study. COMPARISON: CT ANGIO CHEST PE PROTOCOL 10/21/2022 8:39 PM FINDINGS: Pulmonary arteries: Negative for acute pulmonary embolism. Aorta: Unremarkable. No aortic aneurysm. No aortic dissection. Lungs: Chronic pleuroparenchymal changes and subpleural scarring bilaterally. No focal consolidation. Pleural spaces: Unremarkable. No pneumothorax. No pleural effusion. Heart: Unremarkable. No cardiomegaly. No pericardial effusion. Lymph nodes: Unremarkable. No enlarged lymph nodes. Bones/joints: Unremarkable. No acute fracture. Soft tissues: Unremarkable. IMPRESSION: Negative for acute pulmonary embolism.
[2023-05-30 09:04] LABS: Basophils # 0.1 K/mm3 (0-0.2); Basophils % 0.6 % (0.1-2.0); Eosinophils # 0.6 K/mm3 (0.0-0.4); Eosinophils % 7.3 % (0.1-12.0); Hematocrit 44.9 % (42.0-52.0); Hemoglobin 15.1 g/dL (14.1-18.0); Lymphocytes # 1.3 K/mm3 (0.7-4.5); Lymphocytes % 15.6 % (10-50); Mean Corpuscular HGB Conc 33.6 g/dL (31.8-35.4); Mean Corpuscular Hemoglobin 30.5 pg (27.0-31.2); Mean Corpuscular Volume 90.8 fl (80-94); Mean Platelet Volume 7.8 fl (7.4-10.4); Monocytes # 0.4 K/mm3 (0.1-1.0); Monocytes % 5.1 % (1.7-9.3); Neutrophils % 71.4 % (37.0-80.0); Platelet Count 214 K/mm3 (142-424); Red Blood Count 4.95 M/mm3 (4.60-6.20); Red Cell Distribution Width 13.7 % (11.5-17.5); White Blood Count 8.4 K/mm3 (4.8-10.8)
--- NOTE | 2023-05-30 09:11 | PC.NURSE ---
pt given 1 nitro sublingual. pressure prior to admin 162/70. pressure after admin 101/51, recheck 117/66.
[2023-05-30 09:12] LABS: Alanine Aminotransferase 24 U/L (12-78); Albumin Level 4.2 g/dl (3.5-5.0); Albumin/Globulin Ratio 1.4 (1.1-1.8); Alkaline Phosphatase 88 U/L (38-126); Anion Gap 8.2 mEq/L (5-15); Aspartate Amino Transferase 45 U/L (17-59); Bilirubin,Total 1.2 mg/dl (0.2-1.3); Blood Urea Nitrogen 8 mg/dl (9-20); Calcium 8.3 mg/dl (8.4-10.2); Carbon Dioxide 36 mmol/L (22.0-30.0); Chloride 82 mmol/L (98-107); Creatinine Clearance Estimated 57 mL/min (50-200); Estimated Glomerular Filt Rate 163 ml/min (>60); GFR (African American) 197 ML/MIN (>60); Globulin 2.9 g/dL (1.3-3.2); Glucose 112 mg/dl (74-100); Potassium 4.2 mmoL/L (3.5-5.1); Sodium 122 mmol/L (136-145); Total Protein,Serum 7.1 g/dl (6.3-8.2)
[2023-05-30 09:31] LABS: VBG HCO3 31.5 mmol/L (23-30); VBG Oxygen Saturation 57.5 % (50-70); VBG PCO2 66.6 mmol/L (35-51); VBG PH 7.29 mmol/L (7.31-7.41); VBG PO2 32.3 mmol/L (28-40); VBG Total CO2 33.6 mmol/L (23-27)
[2023-05-30 09:34] LABS: Troponin I 0.01 ng/ml (0.00-0.034)
[2023-05-30 09:35] LABS: NT Pro Brain Natriuretic Pep. 4330 pg/mL (0-125)
[2023-05-30 09:46] LABS: Coronavirus 19, PCR Not Detected (NotDetected); Influenza A, PCR Not Detected (NotDetected); Influenza B, PCR Not Detected (NotDetected)
[2023-05-30 13:10] LABS: Troponin I < 0.01 ng/ml (0.00-0.034)
--- NOTE | 2023-05-30 13:23 | PC.NURSE ---
Dr Smalls spoke with Dr Mnedez
--- NOTE | 2023-05-30 13:30 | ECG_ITS ---
APPROVED REPORT Exam: Resting ECG HR:92 bpm ECG Measurements Heart Rate 92 AXES MI 152 P 76 QRSd 138 QRS 82 QT 417 T -41 QTc 467 Conclusion SINUS RHYTHM INDETERMINATE AXIS INTRAVENTRICULAR CONDUCTION DELAY [130+ ms QRS DURATION] ANTEROSEPTAL MYOCARDIAL INFARCTION , OF INDETERMINATE AGE [40+ ms Q WAVE IN V1-V4] ABNORMAL ECG UNCONFIRMED REPORT Electronically signed by : Yfn Sandhu MD 05/31/2023 08:24:10
== END 2023-05-30 14:01 | disposition home or self-care (01) ==
PROVIDERS: Emergency Provider Emergency Medicine
DX: J44.1 Chronic obstructive pulmonary disease with (acute) exacerbation (principal); R07.1 Chest pain on breathing; I44.7 Left bundle-branch block, unspecified; E87.1 Hypo-osmolality and hyponatremia; R06.02 Shortness of breath; I65.23 Occlusion and stenosis of bilateral carotid arteries
CPT/HCPCS: 71045; 71275; 80053; 82803; 83880; 84484; 85025; 87636; 93005; 96374; 96375; 99285; J0456; Q9967

== ENCOUNTER 2023-10-01 14:33 | Emergency (ER) | payer OTHER, MEDICARE, SELFPAY ==
[2023-10-01] VITALS (8 sets, daily range): BP systolic 109–162; BP diastolic 48–81; PULSE 72–87; RESP 14–27; TEMP 36.6–36.7; O2SAT 96–100; BMI 18.9
--- NOTE | 2023-10-01 14:29 | ECG_ITS ---
APPROVED REPORT Exam: Resting ECG HR:87 bpm ECG Measurements Heart Rate 87 AXES WI 180 P 71 QRSd 145 QRS 20 QT 403 T -54 QTc 448 Conclusion SINUS RHYTHM POSSIBLE LEFT ATRIAL ENLARGEMENT [-0.1mV P-WAVE IN V1/V2] LEFT BUNDLE BRANCH BLOCK [120+ ms QRS DURATION, 80+ ms Q/S IN V1/V2, 85+ ms R IN I/aVL/V5/V6] No changes from prior EKG Electronically signed by : YOEL WHITEHEAD, 10/01/2023 23:24:20
--- NOTE | 2023-10-01 14:48 | PC.NURSE ---
provided patient with urinal at this time.
--- NOTE | 2023-10-01 15:12 | CT_ITS ---
FINAL REPORT TECHNIQUE: Thin section axial CT with contrast with multiplanar 3D reconstruction CLINICAL HISTORY: L sided pleuritic chest pain COMPARISON: 05/30/2023 FINDINGS: Pulmonary vessels enhance in normal fashion without evidence of embolism. Thoracic aorta shows no dissection or aneurysm. No pulmonary mass or infiltrate is present. Thickening of the subpleural interstitial septa is noted diffusely compatible with chronic interstitial lung disease, similar from prior exam. There is underlying emphysematous change. There is no significant pleural effusion. There is no significant pericardial effusion. Mild nonspecific mediastinal adenopathy is stable considered likely benign reactive. IMPRESSION: 1. No evidence of pulmonary embolism 2. Chronic changes Authenticated and ERN
--- NOTE | 2023-10-01 15:14 | XR_ITS ---
FINAL REPORT CLINICAL HISTORY: L sided chest pain, h/o PTX FINDINGS: PORTABLE CHEST, One view COMPARISON: 05/30/2023 FINDINGS: Portable view of the chest demonstrates prominence of the peripheral interstitium considered chronic in nature. No acute infiltrate or definite edema is seen. There is no evidence of effusion, pneumothorax or other significant pleural disease. The mediastinum is unremarkable. The heart size is normal. IMPRESSION: 1. No pneumothorax 2. Chronic lung changes with emphysema Authenticated and ERN
--- NOTE | 2023-10-01 15:14 | [facility].EDCP ---
Discharge Plan Disposition Patient Disposition: Home, Self-Care Condition: Good Prescriptions Prescriptions: New azithromycin 500 mg tablet See Rx Instructions .ROUTE .COMPLEX Qty: 3 0RF Rx Instructions: For 500 mg dose pack: take 500 mg once daily for 3 days prednisone 50 mg tablet 50 mg PO DAILY 5 Days Qty: 5 0RF No Action ipratropium-albuterol 0.5 mg-3 mg(2.5 mg base)/3 mL Solution For Nebulization 3 ml INHALATION QID bisoprolol fumarate 10 mg Tablet 10 mg PO DAILY fluticasone propion-salmeterol [Wixela Inhub] 500-50 mcg/dose Blister With Device 1 inh INHALATION BID albuterol sulfate 90 mcg/actuation Hfa Aerosol Inhaler 2 puff INHALATION Q4H PRN (Reason: Shortness of air) Spiriva Respimat 2.5 mcg/actuation Mist 2 puff INHALATION DAILY apixaban 5 mg Tablet 5 mg PO BID ipratropium-albuterol 0.5 mg-3 mg(2.5 mg base)/3 mL Solution For Nebulization 3 ml inhalation Q6HP PRN (Reason: Shortness Of Breath) 30 Days Qty: 120 0RF albuterol sulfate [Ventolin HFA] 90 mcg/actuation Hfa Aerosol Inhaler 2 puff inhalation Q4HP PRN (Reason: Shortness Of Breath) 30 Days Qty: 0 0RF aspirin 81 MG tablet,delayed release (DR/EC) 81 mg PO DAILY Referrals Follow up/Referrals: Provider,Referral, MD [Primary Care Provider] - See instructions Activity Restrictions/Add. Instructions Additional Instructions/Restrictions: You were evaluated in the emergency department today. 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 Use your inhalers at home as prescribed. Follow-up closely with your primary care provider. Return to the emergency department for new or worsening symptoms. Clinical Impressions Clinical Impression: Acute exacerbation of chronic obstructive pulmonary disease, Chest pain Instructions Patient Instructions: DI for Chronic Obstructive Pulmonary Disease, DI for Atypical Chest Pain Discharge ED Provider: Jordana Will General Chief Complaint: Chest Pain Stated Complaint: chest pain Time Seen by Provider: 10/01/23 15:08 Mode of Arrival: Ambulatory Source of Information: Patient Limitations: No Limitations Description of Symptoms (Recalled from ER Triage Doc. by RN): pt states he woke up with severe chest pain this am. pt states the pain is sharp and pressure in nature. pt reports the pain is 6/10. pt is very SOA upon arrival. pt states he uses 2LNC PRN. pt states he has many lung issues from exposure to orange. pt also reports he has a hx of 4 AK's and 8 cardiac stents. He is a pt of Dr. Mendez. History of Present Illness HPI narrative: This patient is a 73-year-old male with a history of hypertension, hyperlipidemia, COPD on 2 L nasal cannula, atrial fibrillation on Eliquis, CAD status post stenting, cardiomyopathy, CHF, and prior pneumothorax presenting with concern for left-sided pleuritic chest pain. Patient states that when he woke up this morning, he was having pain on the left side of his chest that is sharp and worse when he takes a deep breath. He states that it 6 out of 10. He states it has gotten progressively worse throughout the day, so he decided to come in. He also notes shortness of breath. He denies any other concerns, such as fevers, chills, cough, congestion, abdominal pain, nausea, vomiting, changes in bowel movements, rashes, or swelling. He denies any recent travel, surgeries, or other issues. He denies any previous blood clots or clotting disorder. He notes compliance with Eliquis. Related Data Home Medications Medication Instructions Recorded Confirmed aspirin 81 mg tablet,delayed 81 mg PO DAILY Heart health 12/19/21 05/31/23 release albuterol sulfate 90 mcg/actuation 2 puff inhalation Q4H PRN 10/22/22 05/31/23 aerosol inhaler Shortness of air apixaban 5 mg tablet 5 mg PO BID Blood thinner, CAD 10/22/22 05/31/23 bisoprolol fumarate 10 mg tablet 10 mg PO DAILY High blood pressure 10/22/22 05/31/23 fluticasone 500 mcg-salmeterol 50 1 inh inhalation BID COPD 10/22/22 05/31/23 mcg/dose blistr powdr for inhalation (Wixela Inhub) ipratropium 0.5 mg-albuterol 3 mg 3 ml inhalation QID Shortness of 10/22/22 05/31/23 (2.5 mg base)/3 mL nebulization air soln tiotropium bromide 2.5 2 puff inhalation DAILY COPD 10/22/22 05/31/23 mcg/actuation mist for inhalation (Spiriva Respimat) Previous Rx's Medication Instructions Recorded albuterol sulfate 90 mcg/actuation 2 puff inhalation Q4HP PRN 10/22/22 aerosol inhaler (Ventolin HFA) Shortness Of Breath 30 days #0 grams ipratropium 0.5 mg-albuterol 3 mg 3 ml inhalation Q6HP PRN Shortness 10/22/22 (2.5 mg base)/3 mL nebulization Of Breath 30 days #120 ea soln azithromycin 500 mg tablet See Rx Instructions PO .COMPLEX #3 10/01/23 tabs prednisone 50 mg tablet 50 mg PO DAILY 5 days #5 tabs 10/01/23 Allergies Allergy/AdvReac Type Severity Reaction Status Date / Time No Known Allergies Allergy Verified 05/31/23 10:22 [facility] Disclaimer: The information contained in this section may have been updated after the patient was seen, as this information can be updated by other users. 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 [employer] caffeine: No ROS Obtained: Yes All systems reviewed & no additional complaints except as documented Physical Exam General General appearance: alert Comment: Uncomfortable appearing Head Head exam: atraumatic and normocephalic Eye Eye exam: Present normal appearance, PERRL and EOMI ENT ENT exam: Present normal exam, normal oropharynx, mucous membranes moist and normal external ear exam Neck Neck exam: Present normal inspection, full ROM and trachea midline; Absent tenderness Chest Chest inspection: Present normal inspection and symmetric chest wall rise; Absent tenderness Respiratory Respiratory exam: Present normal lung sounds bilaterally, accessory muscle use, prolonged expiratory phase and other (Tachypneic with splinted respirations secondary to pain. Accessory muscle use noted. Prolonged expiratory phase. Equal breath sounds bilaterally); Absent wheezes or stridor Cardiovascular Cardiovascular exam: Present regular rate and normal rhythm Abdominal Exam Abdominal exam: Present soft; Absent distention, tenderness or guarding Extremities Exam Extremities exam: Present normal inspection, full ROM and normal capillary refill; Absent tenderness or edema Back Exam Back exam: Present normal inspection and full ROM; Absent tenderness Neurological Exam Neurological exam: Present alert, oriented X3, CN II-XII intact and normal gait; Absent motor sensory deficit Psychiatric Psychiatric exam: Present normal affect and normal mood Skin Skin exam: Present warm and dry HEART Score HEART Score HEART Score assessment performed?: Yes History (anamnesis): Slightly suspicious ECG: Non-specific disturbance Age: >65 years Risk factors: Atherosclerosis history Troponin: </= normal limit HEART Score: 5 Critical Care Critical Care Time Critical Care Time: No Medical Decision Making Medical Records Medical records reviewed: Yes I reviewed the patient's medical records. Maninder Inquiry Pt receiving controlled substance: No Vital Signs Vital Signs: 10/01/23 14:36 10/01/23 15:00 10/01/23 15:30 Temperature 98.1 F Temperature Source Oral Pulse Rate 80 83 Pulse Rate [Left] 84 Respiratory Rate 16 27 H 21 Blood Pressure 144/67 H 153/75 H Blood Pressure [Right Arm] 162/81 H Blood Pressure Mean [Right Arm] 108 Blood Pressure Source Blood Pressure Source [Right Arm] Automatic Cuff Blood Pressure Position Blood Pressure Position [Right Arm] Sitting 02 Sat by Pulse Oximetry 100 98 100 Oxygen Delivery Method Nasal Cannula Oxygen Flow Rate (LPM) 2 10/01/23 16:01 10/01/23 16:31 10/01/23 17:01 Temperature Temperature Source Pulse Rate 74 74 83 Pulse Rate [Left] Respiratory Rate 27 H 18 18 Blood Pressure 129/67 153/71 H 130/64 Blood Pressure [Right Arm] Blood Pressure Mean [Right Arm] Blood Pressure Source Blood Pressure Source [Right Arm] Blood Pressure Position Blood Pressure Position [Right Arm] 02 Sat by Pulse Oximetry 100 100 97 Oxygen Delivery Method Oxygen Flow Rate (LPM) 10/01/23 17:31 10/01/23 18:48 Temperature 97.9 F Temperature Source Oral Pulse Rate 72 87 Pulse Rate [Left] Respiratory Rate 14 16 Blood Pressure 109/48 L 130/62 Blood Pressure [Right Arm] Blood Pressure Mean [Right Arm] Blood Pressure Source Automatic Cuff Blood Pressure Source [Right Arm] Blood Pressure Position Sitting Blood Pressure Position [Right Arm] 02 Sat by Pulse Oximetry 96 Oxygen Delivery Method Nasal Cannula Oxygen Flow Rate (LPM) Lab Data Labs: Lab Results 10/01/23 14:35: WBC 8.5, RBC 4.50 L, Hgb 13.9 L, Hct 42.0, MCV 93.5, MCH 31.0, MCHC 33.1, RDW 13.0, Plt Count 245, MPV 8.1, Neut % (Auto) 80.2 H, Lymph % (Auto) 14.3, Hyde % (Auto) 4.5, Eos % (Auto) 0.3, Baso % (Auto) 0.5, Neut # (Auto) 6.8, Lymph # (Auto) 1.2, Hyde # (Auto) 0.4, Eos # (Auto) 0.0, Baso # (Auto) 0.1, PT 10.9, INR 1.01, APTT 31.7 H, Sodium 127 L, Potassium 3.9, Chloride 91 L, Carbon Dioxide 36 H, Anion Gap 3.9 L, BUN 9, Creatinine 0.60 L, Estimated Creat Clear 56, Estimated GFR 132, Est GFR ( Amer) 160, Glucose 92, Calcium 8.4, Total Bilirubin 0.4, AST 32, ALT 16, Alkaline Phosphatase 64, Troponin I 0.02, NT-Pro-B Natriuret Pep 6610 H, Total Protein 6.0 L, Albumin 3.5, Globulin 2.5, Albumin/Globulin Ratio 1.4 10/01/23 15:37: VBG pH 7.29 L, VBG pCO2 68.7 H, VBG pO2 38.5, VBG HCO3 32.3 H, VBG Total CO2 34.4 H, VBG O2 Saturation 68.5, VBG Base Excess 5.7 H, VBG Lactic Acid 1.8, SARS-CoV-2 (PCR) Not detected, Influenza A Untype (PCR) Not detected, Influenza Type B (PCR) Not detected 10/01/23 17:05: Troponin I 0.02 10/01/23 14:35 10/01/23 14:35 Response Orders (Tests/Meds): ED MEDICATIONS Discontinued Medications Generic Name Dose Route Start Last Admin Trade Name Freq PRN Reason Stop Dose Admin Acetaminophen 1,000 mg 10/01/23 15:13 10/01/23 15:25 Acetaminophen 1,000mg/100ml Vial IV 10/01/23 15:14 1,000 mg ONCE ONE Administration Albuterol/Ipratropium 9 ml 10/01/23 16:01 10/01/23 16:21 Ipratropium/Albuterol 3 Ml Neb IH 10/01/23 16:02 9 ml ONCE ONE Administration Iopamidol 75 ml 10/01/23 16:05 10/01/23 16:06 Iopamidol-370 (76%);100ml Bottle IV 10/01/23 16:06 75 ml ONCE ONE Administration Morphine Sulfate 4 mg 10/01/23 15:13 10/01/23 15:24 Morphine 4mg/Ml Syringe IV 10/01/23 15:14 4 mg ONCE ONE Administration Ondansetron HCl 4 mg 10/01/23 15:13 10/01/23 15:24 Ondansetron 4mg/2ml Vial IV 10/01/23 15:14 4 mg ONCE ONE Administration Prednisone 40 mg 10/01/23 18:26 10/01/23 18:29 Prednisone 20mg Tab PO 10/01/23 18:27 40 mg ONCE ONE Administration Sodium Chloride 10 ml 10/01/23 14:45 Sodium Chloride 0.9% 10ml Flush Syringe IV 10/31/23 14:44 NEEDED PRN Maintain IV Site Sodium Chloride 10 ml 10/01/23 16:05 10/01/23 16:06 Sodium Chloride 0.9% 10ml Syr (Rad Only) IV 10/01/23 16:06 10 ml ONCE ONE Administration Sodium Chloride 50 ml 10/01/23 16:05 10/01/23 16:06 0.9 % Sodium Chloride 50 Ml Vial IV 10/01/23 16:06 50 ml ONCE ONE Administration ORDERS Category Date Time Status CT angio chest PE protocol Stat Cat Scan 10/01/23 15:12 Completed CXR --portable [XR chest portable] Stat Exams 10/01/23 15:14 Completed Activated Partial Thrombo Time Stat Lab 10/01/23 14:35 Completed BNP [NT Pro Brain Natriuretic Pep.] Stat Lab 10/01/23 14:35 Completed CBC w/Auto Diff [Complete Blood Count Auto Diff] Stat Lab 10/01/23 14:35 Completed Comprehensive Metabolic Panel Stat Lab 10/01/23 14:35 Completed Prothrombin Time INR Stat Lab 10/01/23 14:35 Completed Rapid PCR Covid and Flu A/B Stat Lab 10/01/23 15:37 Completed Troponin I Q3H Lab 10/01/23 17:05 Completed Troponin I Stat Lab 10/01/23 14:35 Completed VBG [Venous Blood Gas] Stat RT 10/01/23 15:37 Completed ECG Data Tracing #1: Attestation: I reviewed this ECG and interpreted as documented below: ECG Narrative: Left bundle branch block. Normal sinus rhythm with a ventricular rate of 87 bpm. No significant changes noted from prior EKG. ECG initial impression date: 10/01/23 ECG initial impression time: 14:37 MDM Narrative Medical Decision Narrative: In summary, this patient is a 73-year-old male presenting to the Emergency Department for evaluation of left-sided pleuritic chest pain that started this morning. Differential diagnoses considered include but are not limited to ACS, PE, pneumothorax, pleurisy, pneumonia, respiratory failure. Ruling out the most morbid conditions drove assessment. On exam, patient is uncomfortable appearing with splinted respirations secondary to left chest pain with inspiration. Vitals are reassuring on cardiac telemetry on his home oxygen, however. Workup included CBC, CMP, troponin, PT, PTT, BNP, VBG, stat chest x-ray, and CTA PE protocol. EKG demonstrates no significant changes noted from prior EKG. Patient was given IV morphine, Zofran, and acetaminophen for symptomatic improvement. I independently interpreted x-ray and CT scan prior to the radiologist read and noted no obvious PE, no pneumothorax, and no focal consolidation concerning for pneumonia. Please see their read for final interpretation. Labs were obtained that demonstrated respiratory acidosis. Patient also has mild hyponatremia. He has an elevated BNP at 6600, but it appears he has chronically elevated BNP. He does not appear grossly volume overloaded on exam or imaging. Given his respiratory acidosis and his history of COPD, I given 3 DuoNebs to assess for symptomatic improvement. This did significant improve work of breathing, and he is having no chest pain. He is breathing comfortably without concerns. He states overall he is feeling a lot better. Patient is resting comfortably with normal vital signs on his home oxygen. He has no increased work of breathing, no splinted respirations, and exam is reassuring. Troponins were negative x 2. After shared decision-making with the patient, he would like to go home. He is given prednisone with concern that this is likely related to COPD exacerbation. I considered admission given his chest pain and history, presenting was to go home, he was discharged home with prescriptions for prednisone and azithromycin. He was given strict return precautions and instructions for close patient follow-up.
[2023-10-01 15:18] LABS: Basophils # 0.1 K/mm3 (0-0.2); Basophils % 0.5 % (0.1-2.0); Eosinophils % 0.3 % (0.1-12.0); Hemoglobin 13.9 g/dL (14.1-18.0); Lymphocytes # 1.2 K/mm3 (0.7-4.5); Lymphocytes % 14.3 % (10-50); Mean Corpuscular HGB Conc 33.1 g/dL (31.8-35.4); Mean Corpuscular Volume 93.5 fl (80-94); Mean Platelet Volume 8.1 fl (7.4-10.4); Monocytes # 0.4 K/mm3 (0.1-1.0); Monocytes % 4.5 % (1.7-9.3); Neutrophils # 6.8 K/mm3 (1.8-7.8); Neutrophils % 80.2 % (37.0-80.0); Platelet Count 245 K/mm3 (142-424); White Blood Count 8.5 K/mm3 (4.8-10.8)
[2023-10-01 15:21] LABS: Chloride 91 mmol/L (98-107); Potassium 3.9 mmoL/L (3.5-5.1); Sodium 127 mmol/L (136-145)
[2023-10-01 15:23] LABS: Alanine Aminotransferase 16 U/L (12-78); Aspartate Amino Transferase 32 U/L (17-59); Blood Urea Nitrogen 9 mg/dl (9-20); Creatinine Clearance Estimated 56 mL/min (50-200); Estimated Glomerular Filt Rate 132 ml/min (>60); GFR (African American) 160 ML/MIN (>60)
[2023-10-01 15:24] LABS: Albumin Level 3.5 g/dl (3.5-5.0); Albumin/Globulin Ratio 1.4 (1.1-1.8); Alkaline Phosphatase 64 U/L (38-126); Anion Gap 3.9 mEq/L (5-15); Bilirubin,Total 0.4 mg/dl (0.2-1.3); Calcium 8.4 mg/dl (8.4-10.2); Carbon Dioxide 36 mmol/L (22.0-30.0); Globulin 2.5 g/dL (1.3-3.2); Glucose 92 mg/dl (74-100)
[2023-10-01] MEDS: MORPHINE 4MG/ML SYRINGE 4 MG IV (15:24)
[2023-10-01] MEDS: ONDANSETRON 4MG/2ML VIAL 4 MG IV (15:24)
[2023-10-01] MEDS: ACETAMINOPHEN 1,000MG/100ML VIAL 1000 MG IV (15:25)
[2023-10-01 15:26] LABS: Activated Partial Thrombo Time 31.7 seconds (22.8-30.6); INR 1.01 (0.9-1.1); Prothrombin Time 10.9 seconds (10.1-12.5)
[2023-10-01 15:34] LABS: NT Pro Brain Natriuretic Pep. 6610 pg/mL (0-125)
[2023-10-01 15:36] LABS: Troponin I 0.02 ng/ml (0.00-0.034)
[2023-10-01 15:44] LABS: Lactate Venous 1.8 mmol/L (0.4-2.0); VBG Base Excess 5.7 mmol/L (-2.4-2.3); VBG HCO3 32.3 mmol/L (23-30); VBG Oxygen Saturation 68.5 % (50-70); VBG PCO2 68.7 mmol/L (35-51); VBG PH 7.29 mmol/L (7.31-7.41); VBG PO2 38.5 mmol/L (28-40); VBG Total CO2 34.4 mmol/L (23-27)
[2023-10-01 15:52] LABS: Coronavirus 19, PCR Not Detected (NotDetected); Influenza A, PCR Not Detected (NotDetected); Influenza B, PCR Not Detected (NotDetected)
[2023-10-01] MEDS: IOPAMIDOL-370 (76%);100ML BOTTLE 75 ML IV (16:06)
[2023-10-01] MEDS: SODIUM CHLORIDE 0.9% 10ML SYR (RAD ONLY) 10 ML IV (16:06)
[2023-10-01] MEDS: 0.9 % SODIUM CHLORIDE 50 ML VIAL IV (16:06)
[2023-10-01] MEDS: IPRATROPIUM/ALBUTEROL 3 ML NEB 9 ML IH (16:21)
[2023-10-01 17:52] LABS: Troponin I 0.02 ng/ml (0.00-0.034)
[2023-10-01] MEDS: predniSONE 20MG TAB 40 MG PO (18:29)
== END 2023-10-01 18:49 | disposition home or self-care (01) ==
PROVIDERS: Emergency Provider Emergency Medicine
DX: E87.1 Hypo-osmolality and hyponatremia (principal); J44.1 Chronic obstructive pulmonary disease with (acute) exacerbation; R07.1 Chest pain on breathing; I11.0 Hypertensive heart disease with heart failure; E78.5 Hyperlipidemia, unspecified; I48.0 Paroxysmal atrial fibrillation; I25.10 Atherosclerotic heart disease of native coronary artery without angina pectoris; I50.9 Heart failure, unspecified; Z79.01 Long term (current) use of anticoagulants; Z95.5 Presence of coronary angioplasty implant and graft; I44.7 Left bundle-branch block, unspecified
CPT/HCPCS: 71045; 71275; 80053; 82803; 83880; 84484; 85025; 85610; 85730; 87636; 93005; 96374; 96375; 99285; J0131; J2405; Q9967

== ENCOUNTER 2023-11-26 10:31 | Emergency (ER) | payer OTHER, MEDICARE, SELFPAY ==
[2023-11-26] VITALS (9 sets, daily range): BP systolic 110–158; BP diastolic 64–86; PULSE 61–85; RESP 15–20; TEMP 36.6; O2SAT 83–98; BMI 18.6
--- NOTE | 2023-11-26 10:32 | PC.NURSE ---
DR SUMMERS AT BEDSIDE
--- NOTE | 2023-11-26 10:32 | ECG_ITS ---
APPROVED REPORT Exam: Resting ECG HR:73 bpm ECG Measurements Heart Rate 73 AXES WI 181 P 80 QRSd 154 QRS -70 QT 433 T -55 QTc 459 Conclusion SINUS RHYTHM WITH SINUS ARRHYTHMIA LEFT AXIS DEVIATION [QRS AXIS < -30] LEFT BUNDLE BRANCH BLOCK [120+ ms QRS DURATION, 80+ ms Q/S IN V1/V2, 85+ ms R IN I/aVL/V5/V6] ABNORMAL ECG Electronically signed by : ESTELITA TOWNSEND, 11/27/2023 04:39:44
--- NOTE | 2023-11-26 10:37 | XR_ITS ---
FINAL REPORT TECHNIQUE: Single view chest CLINICAL HISTORY: cp l sided, soa COMPARISON: 10/01/2023 FINDINGS: A single view of the chest was obtained. The heart and mediastinum are within normal limits. Moderate coarse interstitial opacities are likely due to chronic fibrosis. The lungs are otherwise clear. There is no pneumothorax. Osseous structures are unremarkable. IMPRESSION: No acute cardiopulmonary process. Reviewed, Interpreted and Dictated by Fidel Garcia MD Transcribed by Ana Christensen Authenticated and [facility]
--- NOTE | 2023-11-26 10:42 | PC.NURSE ---
XR AT BEDSIDE
--- NOTE | 2023-11-26 10:43 | PC.NURSE ---
Rounded on patient, patient provided with pillow and blanket at this time.
--- NOTE | 2023-11-26 10:45 | PC.NURSE ---
PT PROVIDED URINAL
[2023-11-26 10:50] LABS: Lactate Venous 1.3 mmol/L (0.4-2.0); VBG Base Excess 3.9 mmol/L (-2.4-2.3); VBG HCO3 30.2 mmol/L (23-30); VBG Oxygen Saturation 45.4 % (50-70); VBG PH 7.31 mmol/L (7.31-7.41); VBG PO2 26.3 mmol/L (28-40); VBG Total CO2 32.1 mmol/L (23-27)
[2023-11-26 10:51] LABS: Basophils % 0.4 % (0.1-2.0); Eosinophils # 0.1 K/mm3 (0.0-0.4); Eosinophils % 0.9 % (0.1-12.0); Lymphocytes # 0.8 K/mm3 (0.7-4.5); Lymphocytes % 8.3 % (10-50); Mean Corpuscular HGB Conc 31.7 g/dL (31.8-35.4); Mean Corpuscular Hemoglobin 30.1 pg (27.0-31.2); Mean Corpuscular Volume 94.9 fl (80-94); Mean Platelet Volume 8.1 fl (7.4-10.4); Monocytes # 0.5 K/mm3 (0.1-1.0); Neutrophils # 8.5 K/mm3 (1.8-7.8); Neutrophils % 85.5 % (37.0-80.0); Platelet Count 187 K/mm3 (142-424); Red Blood Count 4.64 M/mm3 (4.60-6.20); Red Cell Distribution Width 14.7 % (11.5-17.5)
[2023-11-26] MEDS: IPRATROPIUM/ALBUTEROL 3 ML NEB 6 ML IH (10:54)
[2023-11-26] MEDS: METHYLPREDNISOLONE SOD SUCC 125MG VIAL 125 MG IV (10:55)
[2023-11-26 11:00] LABS: Chloride 80 mmol/L (98-107); Potassium 4.9 mmoL/L (3.5-5.1); Sodium 117 mmol/L (136-145)
[2023-11-26 11:02] LABS: Blood Urea Nitrogen 7 mg/dl (9-20); Creatinine Clearance Estimated 55 mL/min (50-200); Estimated Glomerular Filt Rate 163 ml/min (>60); GFR (African American) 197 ML/MIN (>60)
[2023-11-26 11:03] LABS: Alanine Aminotransferase 33 U/L (12-78); Albumin Level 3.9 g/dl (3.5-5.0); Albumin/Globulin Ratio 1.3 (1.1-1.8); Alkaline Phosphatase 78 U/L (38-126); Anion Gap 7.9 mEq/L (5-15); Aspartate Amino Transferase 59 U/L (17-59); Bilirubin,Total 0.8 mg/dl (0.2-1.3); Calcium 8.5 mg/dl (8.4-10.2); Carbon Dioxide 34 mmol/L (22.0-30.0); Glucose 118 mg/dl (74-100); Total Protein,Serum 6.9 g/dl (6.3-8.2)
[2023-11-26 11:12] LABS: NT Pro Brain Natriuretic Pep. 4910 pg/mL (0-125)
[2023-11-26 11:14] LABS: MANUAL DIFFERENTIAL MANUAL DIFFERENTIAL (MANUAL DIFF)
[2023-11-26 11:17] LABS: Troponin I < 0.01 ng/ml (0.00-0.034)
--- NOTE | 2023-11-26 11:17 | ED_ITS ---
Discharge Plan Disposition Patient Disposition: Home, Self-Care Prescriptions Prescriptions: New prednisone 20 mg tablet 40 mg PO DAILY 5 Days Qty: 10 0RF amoxicillin-pot clavulanate 875-125 mg tablet 1 tab PO BID Qty: 10 0RF azithromycin 500 mg tablet 500 mg PO DAILY 2 Days Qty: 2 0RF Rx Instructions: start on day 2 of therapy No Action ipratropium-albuterol 0.5 mg-3 mg(2.5 mg base)/3 mL Solution For Nebulization 3 ml INHALATION QID bisoprolol fumarate 10 mg Tablet 10 mg PO DAILY fluticasone propion-salmeterol [Wixela Inhub] 500-50 mcg/dose Blister With Device 1 inh INHALATION BID albuterol sulfate 90 mcg/actuation Hfa Aerosol Inhaler 2 puff INHALATION Q4H PRN (Reason: Shortness of air) Spiriva Respimat 2.5 mcg/actuation Mist 2 puff INHALATION DAILY apixaban 5 mg Tablet 5 mg PO BID ipratropium-albuterol 0.5 mg-3 mg(2.5 mg base)/3 mL Solution For Nebulization 3 ml inhalation Q6HP PRN (Reason: Shortness Of Breath) 30 Days Qty: 120 0RF albuterol sulfate [Ventolin HFA] 90 mcg/actuation Hfa Aerosol Inhaler 2 puff inhalation Q4HP PRN (Reason: Shortness Of Breath) 30 Days Qty: 0 0RF azithromycin 500 mg tablet See Rx Instructions .ROUTE .COMPLEX Qty: 3 0RF Rx Instructions: For 500 mg dose pack: take 500 mg once daily for 3 days prednisone 50 mg tablet 50 mg PO DAILY 5 Days Qty: 5 0RF aspirin 81 MG tablet,delayed release (DR/EC) 81 mg PO DAILY Referrals Follow up/Referrals: Provider,Referral, MD [Primary Care Provider] - See instructions Activity Restrictions/Add. Instructions Additional Instructions/Restrictions: Call your family doctor to establish care for this visit to the emergency department and schedule follow-up within 48 hours to ensure improvement. If you have any worsening of your condition or any other concerning signs or symptoms, return to the emergency department or your primary care doctor for further evaluation. Clinical Impressions Clinical Impression: Acute exacerbation of chronic obstructive pulmonary disease, Acute respiratory failure with hypoxemia, Pneumonia Discharge ED Provider: Billy Cabral General Chief Complaint: Chest Pain Stated Complaint: Chest Pain Time Seen by Provider: 11/26/23 10:35 Mode of Arrival: Ambulatory Source of Information: Spouse Limitations: No Limitations Description of Symptoms (Recalled from ER Triage Doc. by RN): PT C/O SHORTNESS OF BREATH X 2 WEEKS, WORSE THIS AM. REPORTS CHEST PAIN, LEFT SIDED THAT RADIATES TO BACK History of Present Illness HPI narrative: Please note that above description of symptoms, in this electronic medical record under categorization of recalled from ER triage doctor by RN are reflective of an initial nursing assessment, however, is not reflective of my full history and physical exam that was personally taken and clarified. Consequentially, this preceding description of symptoms, which may include the patient's categorized chief complaint in the EMR, do not reflect my personal clinical impression, and the ultimate description of history of present illness and patient stated complaints should be deferred to this section of the note. Unless stated otherwise or congruent with this section of the note, additional signs, symptoms, or incongruence should be interpreted as inaccurate with my clinical impression. Related Data Home Medications Medication Instructions Recorded Confirmed aspirin 81 mg tablet,delayed 81 mg PO DAILY Heart health 12/19/21 05/31/23 release albuterol sulfate 90 mcg/actuation 2 puff inhalation Q4H PRN 10/22/22 05/31/23 aerosol inhaler Shortness of air apixaban 5 mg tablet 5 mg PO BID Blood thinner, CAD 10/22/22 05/31/23 bisoprolol fumarate 10 mg tablet 10 mg PO DAILY High blood pressure 10/22/22 05/31/23 fluticasone 500 mcg-salmeterol 50 1 inh inhalation BID COPD 10/22/22 05/31/23 mcg/dose blistr powdr for inhalation (Wixela Inhub) ipratropium 0.5 mg-albuterol 3 mg 3 ml inhalation QID Shortness of 10/22/22 05/31/23 (2.5 mg base)/3 mL nebulization air soln tiotropium bromide 2.5 2 puff inhalation DAILY COPD 10/22/22 05/31/23 mcg/actuation mist for inhalation (Spiriva Respimat) Previous Rx's Medication Instructions Recorded albuterol sulfate 90 mcg/actuation 2 puff inhalation Q4HP PRN 10/22/22 aerosol inhaler (Ventolin HFA) Shortness Of Breath 30 days #0 grams ipratropium 0.5 mg-albuterol 3 mg 3 ml inhalation Q6HP PRN Shortness 10/22/22 (2.5 mg base)/3 mL nebulization Of Breath 30 days #120 ea soln azithromycin 500 mg tablet See Rx Instructions PO .COMPLEX #3 10/01/23 tabs prednisone 50 mg tablet 50 mg PO DAILY 5 days #5 tabs 10/01/23 amoxicillin 875 mg-potassium 1 tab PO BID #10 tabs 11/26/23 clavulanate 125 mg tablet azithromycin 500 mg tablet 500 mg PO DAILY 2 days #2 tabs 11/26/23 prednisone 20 mg tablet 40 mg (2 x 20 mg) PO DAILY 5 days 11/26/23 #10 tabs Allergies Allergy/AdvReac Type Severity Reaction Status Date / Time No Known Allergies Allergy Verified 05/31/23 10:22 [facility] Disclaimer: The information contained in this section may have been updated after the patient was seen, as this information can be updated by other users. 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 [employer] caffeine: No ROS Obtained: Yes All systems reviewed & no additional complaints except as documented Physical Exam General General appearance: alert and in distress (Mild respiratory distress) Neck Neck exam: Present trachea midline Chest Chest inspection: Present normal inspection and symmetric chest wall rise Respiratory Respiratory exam: Present wheezes (Bilateral, left anterior greater than right), accessory muscle use, prolonged expiratory phase and other (Breathing through pursed lips, speaking in near full sentences); Absent respiratory distress or stridor Cardiovascular Cardiovascular exam: Present regular rate and normal rhythm Extremities Exam Extremities exam: Absent edema Neurological Exam Neurological exam: Present alert, oriented X3 and CN II-XII intact Skin Skin exam: Present warm and dry; Absent cyanosis, diaphoresis or pallor HEART Score HEART Score HEART Score assessment performed?: Yes HEART Score: 5 Critical Care Critical Care Time Critical Care Time: Yes (Resp) Attestation: On 11/26/23, the high probability of a clinically significant, sudden or life threatening deterioration of the following system(s) required my full and direct attention, intervention and personal management. The time I documented below is in addition to time spent performing reported procedures but includes the following listed in this critical care notation. Total Time Total Critical Care Time: 45 Medical Decision Making Medical Records Medical records reviewed: Yes I reviewed the patient's medical records. Maninder Inquiry Pt receiving controlled substance: No Maninder was queried for this patient: No Vital Signs Vital Signs: 11/26/23 10:31 11/26/23 11:01 11/26/23 12:01 Temperature 97.9 F Temperature Source Oral Pulse Rate 70 61 Pulse Rate [Apical] 85 Respiratory Rate 20 Blood Pressure 153/77 H 138/64 Blood Pressure [Right Arm] 157/86 H Blood Pressure Mean 102 Blood Pressure Mean [Right Arm] 109 Blood Pressure Source Blood Pressure Source [Right Arm] Automatic Cuff Blood Pressure Position [Right Arm] Sitting 02 Sat by Pulse Oximetry 95 98 88 L Oxygen Delivery Method Room Air 11/26/23 14:29 Temperature 97.8 F Temperature Source Oral Pulse Rate 81 Pulse Rate [Apical] Respiratory Rate 15 Blood Pressure 158/77 H Blood Pressure [Right Arm] Blood Pressure Mean Blood Pressure Mean [Right Arm] Blood Pressure Source Automatic Cuff Blood Pressure Source [Right Arm] Blood Pressure Position [Right Arm] 02 Sat by Pulse Oximetry Oxygen Delivery Method Room Air Lab Data Labs: Lab Results 11/26/23 10:37: VBG pH 7.31, VBG pCO2 62.0 H, VBG pO2 26.3 L, VBG HCO3 30.2 H, V BG Total CO2 32.1 H, VBG O2 Saturation 45.4 L, VBG Base Excess 3.9 H, VBG Lactic Acid 1.3 11/26/23 10:40: WBC 10.0, RBC 4.64, Hgb 14.0 L, Hct 44.0, MCV 94.9 H, MCH 30.1, MCHC 31.7 L, RDW 14.7, Plt Count 187, MPV 8.1, Neut % (Auto) 85.5 H, Lymph % (Auto) 8.3 L, Mitchell % (Auto) 5.0, Eos % (Auto) 0.9, Baso % (Auto) 0.4, Neut # (Auto) 8.5 H, Lymph # (Auto) 0.8, Mitchell # (Auto) 0.5, Eos # (Auto) 0.1, Baso # (Auto) 0.0, Total Counted 100, Neutrophils % (Manual) 84 H, Lymphocytes % (Manual) 14, Monocytes % (Manual) 2, Platelet Estimate Normal, RBC Morphology Normal, Sodium 117 L, Potassium 4.9, Chloride 80 L, Carbon Dioxide 34 H, Anion Gap 7.9, BUN 7 L, Creatinine 0.50 L, Estimated Creat Clear 55, Estimated GFR 163, Est GFR ( Amer) 197, Glucose 118 H, Calcium 8.5, Total Bilirubin 0.8, AST 59, ALT 33, Alkaline Phosphatase 78, Troponin I < 0.01, NT-Pro-B Natriuret Pep 4910 H, Total Protein 6.9, Albumin 3.9, Globulin 3.0, Albumin/Globulin Ratio 1.3, Procalcitonin 0.065 11/26/23 13:40: Troponin I < 0.01 11/26/23 10:40 11/26/23 10:40 Response Orders (Tests/Meds): ED MEDICATIONS Generic Name Dose Route Start Last Admin Trade Name Freq PRN Reason Stop Dose Admin Sodium Chloride 10 ml 11/26/23 10:42 Sodium Chloride 0.9% 10ml Flush Syringe IV 12/26/23 10:41 NEEDED PRN Maintain IV Site Discontinued Medications Generic Name Dose Route Start Last Admin Trade Name Freq PRN Reason Stop Dose Admin Albuterol/Ipratropium 6 ml 11/26/23 10:36 11/26/23 10:54 Ipratropium/Albuterol 3 Ml Neb IH 11/26/23 10:37 6 ml ONCE ONE Administration Azithromycin 500 mg 11/26/23 13:08 11/26/23 13:27 Azithromycin 250mg Tablet PO 11/26/23 13:09 500 mg ONCE ONE Administration Ceftriaxone Sodium 2 gm/ 100 mls @ 200 mls/hr 11/26/23 12:12 11/26/23 12:21 Sodium Chloride IV 11/26/23 12:41 200 mls/hr ONCE ONE Administration Iopamidol 100 ml 11/26/23 11:34 11/26/23 11:39 Iopamidol-370 (76%);100ml Bottle IV 11/26/23 11:35 100 ml ONCE ONE Administration Methylprednisolone Sodium Succinate 125 mg 11/26/23 10:36 11/26/23 10:55 Methylprednisolone Sod Succ 125mg Vial IV 11/26/23 10:37 125 mg ONCE ONE Administration Sodium Chloride 10 ml 11/26/23 11:34 11/26/23 11:39 Sodium Chloride 0.9% 10ml Syr (Rad Only) IV 11/26/23 11:35 10 ml ONCE ONE Administration Sodium Chloride 50 ml 11/26/23 11:34 11/26/23 11:39 0.9 % Sodium Chloride 50 Ml Vial IV 11/26/23 11:35 50 ml ONCE ONE Administration ORDERS Category Date Time Status CT angio abdomen pelvis Stat Cat Scan 11/26/23 11:[address] angio chest - dissection Stat Cat Scan 11/26/23 11:18 Completed XR chest portable Stat Exams 11/26/23 10:37 Completed Complete Blood Count Auto Diff Stat Lab 11/26/23 10:40 Completed Comprehensive Metabolic Panel Stat Lab 11/26/23 10:40 Completed NT Pro Brain Natriuretic Pep. 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 Patient states that he was sitting not exerting himself just before arrival when he felt an acute onset left-sided chest pain going into his back associated with acute shortness of breath. Was using his 's oxygen for short period of time, [facility] come [facility] department and discontinue using oxygen at home. On arrival, patient states he is still having mild to moderate pain, is primarily in his back by his left shoulder blade. He has had a productive cough, but has not been coughing up blood. No fevers or chills, nausea or vomiting. He states that this pain is similar to pains that he has had in the past with a right- sided pneumothorax, however this is much worse. History was obtained via conversation with patient. On arrival, patient hemodynamically stable, alert, oriented x4, appropriate, GCS 15, moving all extremities spontaneously, pupils equal and reactive to light. Full physical exam performed and significant for anterior left-sided wheezing which is worse compared to diffuse bilateral wheezes elsewhere. Differential includes microvascular coronary artery disease, CHF, ACS, NE, coronary artery dissection, pneumothorax, PE, dissection, pericarditis, myocarditis, pneumothorax, aortic aneurysm, pneumonia, bronchitis, among others. Patient was given DuoNebs, Solu-Medrol for symptomatic management and correction of underlying abnormalities. Workup independently interpreted and significant for no leukocytosis, but neutrophilia. VBG with chronic changes, no acute findings. Chronically hyponatremic, kidney function normal. Lactic acid normal. Troponin negative, BNP mildly elevated at 4900, procalcitonin negative. CTA of the chest abdomen pelvis without acute dissection, but patient does have concern for pneumonia developing. See radiology read for full review of final results. Independent interpretation of EKG shows sinus rhythm 73 beats a minute no ST or T wave changes concerning for acute ischemia. Left axis deviation with left bundle branch block morphology. DC 181, QRS 154, QTc 459. Patient placed on continuous cardiac monitoring and continuous pulse ox with initial blood pressure 157/86, heart rate 85, saturation 95 on room air. Heart score 5. Patient was placed in observation beginning at 11:30 AM in order to rule out evolving NE versus dissection with delta troponins and CT angiograms and determine need for admission versus home-going. The patient was provided meds/serial exams/monitoring while awaiting results. Independent interpretation of results demonstrated negative delta troponin, no dissection, but he does have known hernia on CT. On reevaluation, patient resting comfortably. He did have an episode of desaturation to 77% while sleeping. Despite this, patient opting to go home. He states that he has extra oxygen at home he is able to use over the weekend until he follows up with his doctor on Wednesday at the [facility]. Patient also stating able to come back if things get worse. Although I would feel more comfortable patient was admitted to the hospital and monitored, I feel he has appropriate support and ability to return if discharged with oral antibiotics and home oxygen, as he has done this multiple times in the past. At this time, I feel patient is appropriate for discharge after shared decision making and thorough discussion of risks and benefits with patient. Total observation time 3 hours. 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 Electronic shovel engineer of the spoken language may permit errors. Although I have reviewed the note, some errors may still exist.
--- NOTE | 2023-11-26 11:18 | CT_ITS ---
FINAL REPORT TECHNIQUE: Multiple axial CT images were obtained through the chest during the arterial phase. Multiplanar reformatted images were reconstructed from the axial data set, additionally extensive 3-D reconstruction images were performed and provided for interpretation. This study was performed with techniques to keep radiation doses as low as reasonably achievable, (ALARA). Individualized dose reduction techniques using automated exposure control or adjustment of mA and/or kV according to the patient's size were employed. CLINICAL HISTORY: CP to back COMPARISON: None FINDINGS: NONVASCULAR: The heart is normal in size. There are coarse interstitial changes in the lung sanches bilaterally, that likely represents fibrosis. There is a patchy airspace opacity in the posterior left lower lobe, best seen in images #44 through 49 of series 3, that may represent an acute pneumonia. There is a small nodular focus in the posterior right lower lobe, 5 mm, best seen on image #48 of series 3. This is favored to be inflammatory. VASCULAR: The thoracic aorta is normal in caliber. There is no evidence of thoracic aortic dissection or pulmonary embolus. Diffuse vascular calcifications are noted throughout the aorta. IMPRESSION: No evidence of aortic dissection is present. There is a posterior left lower lobe patchy airspace infiltrate as described above, that may represent pneumonia. There is also a small nodule present in the posterior right lower lobe as described, favor inflammatory. Coarse interstitial appearing bilateral opacities are present, likely fibrosis. Reviewed, Interpreted and Dictated by Fidel Garcia MD Transcribed by Rachna Marley Authenticated and [facility]
--- NOTE | 2023-11-26 11:18 | CT_ITS ---
FINAL REPORT TECHNIQUE: Multiple axial CT images were obtained through the chest, abdomen and pelvis during the arterial phase according to the CTA abdomen pelvis protocol. Multiplanar reformatted images were reconstructed from the axial data set, additionally extensive 3-D reconstruction images were performed and provided for interpretation.This study was performed with techniques to keep radiation doses as low as reasonably achievable, (ALARA). Individualized dose reduction techniques using automated exposure control or adjustment of mA and/or kV according to the patient's size were employed. CLINICAL HISTORY: CP to back, acute, moderate, r/o dissection COMPARISON: None FINDINGS: VASCULAR: The thoracic aorta is normal in caliber. There is no evidence of thoracic aortic dissection or pulmonary embolus. Diffuse vascular calcifications are noted throughout the aorta and iliac vessels. The abdominal aorta isnormal in caliber. The celiac trunk, superior mesenteric artery, inferior mesenteric artery and their major branches are patent. There are dense vascular calcifications including at the origins of the celiac axis and superior mesenteric artery, and there may be significant stenosis at the origin of the SMA. The renal arteries are patent, however there are moderate calcifications at the origins of the renal arteries..The common, internal and external iliac arteries are patent.The visualized portions of the common, superficial and deep femoral arteries are patent and unremarkable. NONVASCULAR: LOWER CHEST: The heart is normal in size. There are coarse interstitial changes in the lung sanches bilaterally, that likely represents fibrosis. There is a patchy airspace opacity in the posterior left lower lobe, best seen in images #44 through 49 of series 3, that may represent an acute pneumonia. There is a small nodular focus in the posterior right lower lobe, 5 mm, best seen on image #48 of series 3. This favored to be inflammatory. ABDOMEN/PELVIS: The liver enhances homogenously without suspicious focal hepatic lesion. The gallbladder is contracted, and there is a stone present in the gallbladder. No significant biliary ductal dilatation is present. There is bilateral adrenal hyperplasia present. The spleen, pancreas, and kidneys are unremarkable in appearance. There is no evidence of bowel obstruction. The bladder is incompletely distended. IMPRESSION: CTA reveals diffuse dense vascular calcifications, including at the origins of the celiac axis and superior mesenteric artery. There may be significant stenosis at the origin of the SMA. There is also moderate calcification involving the renal artery origins. No evidence of aortic dissection is present. There is a posterior left lower lobe patchy airspace infiltrate as described above, that may represent pneumonia. There is also a small nodule present in the posterior right lower lobe as described, favor inflammatory. Coarse interstitial appearing bilateral opacities are present, likely fibrosis. A gallstone is present in the gallbladder. Reviewed, Interpreted and Dictated by Fidel Garcia MD Transcribed by Rachna Marley Authenticated and [facility]
--- NOTE | 2023-11-26 11:28 | PC.NURSE ---
PT TO CT
[2023-11-26] MEDS: SODIUM CHLORIDE 0.9% 10ML SYR (RAD ONLY) 10 ML IV (11:39)
[2023-11-26] MEDS: 0.9 % SODIUM CHLORIDE 50 ML VIAL IV (11:39)
[2023-11-26] MEDS: IOPAMIDOL-370 (76%);100ML BOTTLE 100 ML IV (11:39)
[2023-11-26 11:40] LABS: Procalcitonin 0.065 ng/mL (0.0-2.0)
[2023-11-26 11:44] LABS: Lymphocytes % 14 % (10-50); Monocytes % 2 % (2-9); Neutrophils % 84 % (42-76); Platelet Estimate Normal; RBC Morphology Normal; Total Cells Counted 100
[2023-11-26] MEDS: CEFTRIAXONE SODIUM 2 GM in 0.9 % SODIUM CHLORIDE 100 ML IV (12:21)
--- NOTE | 2023-11-26 13:20 | PC.NURSE ---
DR SUMMERS SPEAKING WITH DR BENITEZ
[2023-11-26] MEDS: AZITHROMYCIN 250MG TABLET 500 MG PO (13:27)
[2023-11-26 14:13] LABS: Troponin I < 0.01 ng/ml (0.00-0.034)
== END 2023-11-26 14:30 | disposition home or self-care (01) ==
PROVIDERS: Emergency Provider Emergency Medicine
DX: J96.01 Acute respiratory failure with hypoxia (principal); J18.9 Pneumonia, unspecified organism; J44.1 Chronic obstructive pulmonary disease with (acute) exacerbation; R07.9 Chest pain, unspecified; E87.1 Hypo-osmolality and hyponatremia; I44.7 Left bundle-branch block, unspecified; Z99.81 Dependence on supplemental oxygen
CPT/HCPCS: 71045; 71275; 74174; 80053; 82803; 83880; 84145; 84484; 85007; 85025; 93005; 96365; 96375; 99291; J0696; Q9967

== ENCOUNTER 2024-05-14 08:30 | Emergency (ER) | payer OTHER, MEDICARE, SELFPAY ==
[2024-05-14 08:31] VITALS: BP 146/97; PULSE 73; RESP 20; TEMP 36.6; O2SAT 96; BMI 18.6
[2024-05-14 08:36] VITALS: BP 146/97; O2SAT 99
--- NOTE | 2024-05-14 08:39 | XR_ITS ---
PROCEDURE INFORMATION: Exam: XR Right Elbow Exam date and time: 05/14/2024 8:57 AM Age: 74 years old Clinical indication: Injury or trauma; Fall; Blunt trauma (contusions or hematomas); Elbow; Right TECHNIQUE: Imaging protocol: Radiologic exam of the right elbow. Views: 3 or more views. AP, lateral and oblique views COMPARISON: No relevant prior studies available. FINDINGS: Bones/joints: Degenerative changes of the elbow joint. No joint hemarthrosis evident. No acute fracture. No dislocation. Soft tissues: Normal. IMPRESSION: There is no evidence of acute fracture or malalignment.
--- NOTE | 2024-05-14 08:39 | CT_ITS ---
PROCEDURE INFORMATION: Exam: CT Head Without Contrast Exam date and time: 05/14/2024 8:57 AM Age: 74 years old Clinical indication: Injury or trauma; Fall; Blunt trauma (contusions or hematomas); Additional info: Fall, frontal calvarial swelling TECHNIQUE: Imaging protocol: Computed tomography of the head without contrast. Radiation optimization: All CT scans at this facility use at least one of these dose optimization techniques: automated exposure control; mA and/or kV adjustment per patient size (includes targeted exams where dose is matched to clinical indication); or iterative reconstruction. COMPARISON: CT HEAD/BRAIN WO CON 05/07/2020 2:49 PM FINDINGS: Brain: There is no evidence of acute parenchymal hemorrhage, extra-axial collection, or acute infarction. There is no mass effect, midline shift, or downward herniation. Cerebral ventricles: No ventriculomegaly. Paranasal sinuses: There is a left maxillary sinus mucous retention cyst noted. Mastoid air cells: Visualized mastoid air cells are well aerated. Bones: There is an old appearing right nasal bone fracture. Soft tissues: Unremarkable. IMPRESSION: No evidence of acute intracranial process.
--- NOTE | 2024-05-14 08:39 | CT_ITS ---
PROCEDURE INFORMATION: Exam: CT Cervical Spine Without Contrast Exam date and time: 05/14/2024 8:57 AM Age: 74 years old Clinical indication: Injury or trauma; Fall; Blunt trauma TECHNIQUE: Imaging protocol: Computed tomography of the cervical spine without contrast. Radiation optimization: All CT scans at this facility use at least one of these dose optimization techniques: automated exposure control; mA and/or kV adjustment per patient size (includes targeted exams where dose is matched to clinical indication); or iterative reconstruction. COMPARISON: CT HEAD/BRAIN WO CON 05/14/2024 8:57 AM FINDINGS: Bones/joints: No acute fracture. Normal alignment. There is advanced degenerative disc disease at C5-C6 and C6-C7. There is [id number] spinal canal stenosis at these levels secondary to disc osteophyte ridging. Lungs: There is bilateral apical scarring noted. Vasculature: There is heavy calcified plaque at the carotid bulbs and bifurcations. Soft tissues: Unremarkable. IMPRESSION: 1. No evidence of acute fracture. 2. Heavy carotid bulb and bifurcation plaque noted.
--- NOTE | 2024-05-14 08:41 | ED_ITS ---
Discharge Plan Disposition Patient Disposition: Home, Self-Care Chief Complaint: Fall Prescriptions Prescriptions: No Action ipratropium-albuterol 0.5 mg-3 mg(2.5 mg base)/3 mL Solution For Nebulization 3 ml INHALATION QID bisoprolol fumarate 10 mg Tablet 10 mg PO DAILY fluticasone propion-salmeterol [Wixela Inhub] 500-50 mcg/dose Blister With Device 1 inh INHALATION BID albuterol sulfate 90 mcg/actuation Hfa Aerosol Inhaler 2 puff INHALATION Q4H PRN (Reason: Shortness of air) Spiriva Respimat 2.5 mcg/actuation Mist 2 puff INHALATION DAILY apixaban 5 mg Tablet 5 mg PO BID ipratropium-albuterol 0.5 mg-3 mg(2.5 mg base)/3 mL Solution For Nebulization 3 ml inhalation Q6HP PRN (Reason: Shortness Of Breath) 30 Days Qty: 120 0RF albuterol sulfate [Ventolin HFA] 90 mcg/actuation Hfa Aerosol Inhaler 2 puff inhalation Q4HP PRN (Reason: Shortness Of Breath) 30 Days Qty: 0 0RF azithromycin 500 mg tablet See Rx Instructions .ROUTE .COMPLEX Qty: 3 0RF Rx Instructions: For 500 mg dose pack: take 500 mg once daily for 3 days prednisone 50 mg tablet 50 mg PO DAILY 5 Days Qty: 5 0RF prednisone 20 mg tablet 40 mg PO DAILY 5 Days Qty: 10 0RF amoxicillin-pot clavulanate 875-125 mg tablet 1 tab PO BID Qty: 10 0RF azithromycin 500 mg tablet 500 mg PO DAILY 2 Days Qty: 2 0RF Rx Instructions: start on day 2 of therapy aspirin 81 MG tablet,delayed release (DR/EC) 81 mg PO DAILY Referrals Follow up/Referrals: Provider,Referral, MD [Primary Care Provider] - See instructions Activity Restrictions/Add. Instructions Additional Instructions/Restrictions: At this time it was felt you are safe to be discharged home. If new or worsening symptoms please do not hesitate to return the emergency department. Please call and schedule an appoint with cardiology to further look into the plaque in your carotid arteries. Clinical Impressions Clinical Impression: Fall, Traumatic hematoma of head, Carotid artery calcification Print Language Print Language: Trinidadian Discharge ED Provider: Julien Smalls General Adult HPI General Chief complaint: Fall Stated complaint: AO 2:30am head pain and both arms Time Seen by Provider: 05/14/24 08:40 History of Present Illness HPI narrative: Patient is a 74-year-old male with past medical history of COPD on intermittent nasal cannula who presents emergency department for evaluation traumatic injury sustained in a fall. History is obtained by patient at bedside. He demetrice from using the bathroom prior to arrival when he had tunnel vision followed by blacking out striking his forehead. He was immediately awake after striking his forehead and does not think that he lost consciousness for any significant amount of time. He is complaining of skin tears on his bilateral elbows as well as swelling on his forehead. He takes apixaban for his history of atrial fibrillation. No neck pain, no lower extremity pain, no chest pain, no abdominal pain. No other acute complaints at this time. Last Tdap unknown. Related Data Home Medications ?Medication ?Instructions ?Recorded ?Confirmed aspirin 81 mg tablet,delayed 81 mg PO DAILY Heart health 12/19/21 05/31/23 release albuterol sulfate 90 mcg/actuation 2 puff inhalation Q4H PRN 10/22/22 05/31/23 aerosol inhaler Shortness of air apixaban 5 mg tablet 5 mg PO BID Blood thinner, CAD 10/22/22 05/31/23 bisoprolol fumarate 10 mg tablet 10 mg PO DAILY High blood pressure 10/22/22 05/31/23 fluticasone 500 mcg-salmeterol 50 1 inh inhalation BID COPD 10/22/22 05/31/23 mcg/dose blistr powdr for inhalation (Wixela Inhub) ipratropium 0.5 mg-albuterol 3 mg 3 ml inhalation QID Shortness of 10/22/22 05/31/23 (2.5 mg base)/3 mL nebulization air soln tiotropium bromide 2.5 2 puff inhalation DAILY COPD 10/22/22 05/31/23 mcg/actuation mist for inhalation (Spiriva Respimat) Previous Rx's ?Medication ?Instructions ?Recorded albuterol sulfate 90 mcg/actuation 2 puff inhalation Q4HP PRN 10/22/22 aerosol inhaler (Ventolin HFA) Shortness Of Breath 30 days #0 grams ipratropium 0.5 mg-albuterol 3 mg 3 ml inhalation Q6HP PRN Shortness 10/22/22 (2.5 mg base)/3 mL nebulization Of Breath 30 days #120 ea soln azithromycin 500 mg tablet See Rx Instructions PO .COMPLEX #3 10/01/23 tabs prednisone 50 mg tablet 50 mg PO DAILY 5 days #5 tabs 10/01/23 amoxicillin 875 mg-potassium 1 tab PO BID #10 tabs 11/26/23 clavulanate 125 mg tablet azithromycin 500 mg tablet 500 mg PO DAILY 2 days #2 tabs 11/26/23 prednisone 20 mg tablet 40 mg (2 x 20 mg) PO DAILY 5 days 11/26/23 #10 tabs Allergies Allergy/AdvReac Type Severity Reaction Status Date / Time No Known Allergies Allergy Verified 05/31/23 10:22 [facility] Disclaimer: The information contained in this section may have been updated after the patient was seen, as this information can be updated by other users. 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 [employer] caffeine: No Other Medical History Have you received the Flu Vaccine for this season: No Have you received the Pneumonia Vaccine: No ROS Obtained: Yes Systems reviewed as appropriate & no additional complaints except as documented Physical Exam General General appearance: alert and in no apparent distress Head Head exam: normocephalic and other (Frontal calvarial hematoma without open skin break) Eye Eye exam: Present PERRL and EOMI ENT ENT exam: Present mucous membranes moist Neck Neck exam: Present normal inspection and full ROM; Absent tenderness Chest Chest inspection: Present normal inspection and symmetric chest wall rise Respiratory Respiratory exam: Present normal lung sounds bilaterally; Absent respiratory distress Cardiovascular Cardiovascular exam: Present regular rate and normal rhythm Abdominal Exam Abdominal exam: Present soft; Absent tenderness Extremities Exam Extremities exam: Present full ROM and other (Skin tears bilateral elbows, full active range of motion bilateral upper and lower extremities preserved.); Absent normal inspection (Superficial skin tears bilateral elbows oozing blood, no significant laceration, no arterial hemorrhage.) Neurological Exam Neurological exam: Present alert and CN II-XII intact; Absent motor sensory deficit Psychiatric Psychiatric exam: Present normal affect Skin Skin exam: Present warm and dry Medical Decision Making Medical Records Screening: Per USPSTF and CDC recommendations, given the prevalence of disease in our region, it is our hospital?s policy to screen for HIV and viral Hepatitis for all patients aged 18 and over and those with ongoing risk factors. Maninder Inquiry Pt receiving controlled substance: No Vital Signs: 05/14/24 08:31 Temperature 97.8 F Temperature Source Oral Pulse Rate [Right] 73 Respiratory Rate 20 Blood Pressure [Right Arm] 146/97 H Blood Pressure Mean [Right Arm] 113 02 Sat by Pulse Oximetry 96 Oxygen Delivery Method Nasal Cannula Oxygen Flow Rate (LPM) 2 Lab Data Lab Results 05/14/24 08:40: WBC 8.8, RBC 4.32 L, Hgb 12.9 L, Hct 39.6 L, MCV 91.6, MCH 29.8, MCHC 32.5, RDW 14.4, Plt Count 241, MPV 7.3 L, Neut % (Auto) 73.7, Lymph % (Auto) 21.0, [place] % (Auto) 4.3, Eos % (Auto) 0.6, Baso % (Auto) 0.4, Neut # (Auto) 6.5, Lymph # (Auto) 1.9, [place] # (Auto) 0.4, Eos # (Auto) 0.1, Baso # (Auto) 0.0, Sodium 130 L, Potassium 4.5, Chloride 92 L, Carbon Dioxide 34 H, Anion Gap 8.5, BUN 11, Creatinine 0.60 L, Estimated Creat Clear 54, Estimated GFR 132, Est GFR ( Amer) 159, Glucose 65 L, Calcium 8.7, Magnesium 1.9, Total Bilirubin 0.8, AST 31, ALT 18, Alkaline Phosphatase 42, Total Protein 6.2 L, Albumin 3.9, Globulin 2.3, Albumin/Globulin Ratio 1.7 05/14/24 08:40 05/14/24 08:40 Orders (Tests/Meds): ED MEDICATIONS Discontinued Medications Generic Name Dose Route Start Last Admin Trade Name Mignon PRN Reason Stop Dose Admin Tetanus/Reduced Diphtheria/Acell Pertussis 0.5 ml 05/14/24 08:40 Tet/Diphth/Pert-Adult 0.5ml Syringe IM 05/14/24 08:41 .ONCE ONE ORDERS Category Date Time Status CT cervical spine wo con Stat Cat Scan 05/14/24 08:[address] head/brain wo con Stat Cat Scan 05/14/24 08:39 Completed CXR --portable [XR chest portable] Stat Exams 05/14/24 08:54 Taken Elbow XR right minimum 3 views [XR elbow RT min 3V] Exams 05/14/24 08:39 Taken Stat CBC w/Auto Diff [Complete Blood Count Auto Diff] Stat Lab 05/14/24 08:40 Completed CMP [Comprehensive Metabolic Panel] Stat Lab 05/14/24 08:40 Completed HIV (1&2) Antibody Rapid Stat Lab 05/14/24 08:40 Received Hep C Ab with Reflex to RNA Stat Lab 05/14/24 08:40 Received MG [Magnesium] Stat Lab 05/14/24 08:40 Completed EKG Request [ECG Request] Stat Y 05/14/24 08:39 Ordered ECG Data Tracing #1: Independently interpreted by me rate is 79, rhythm is regular, axis is borderline leftward deviated, left bundle branch block negative Sgarbossa, QTc 442 Medical Decision Narrative: In summary patient is a 74-year-old male past medical history described above who presents to the emergency department for evaluation of injury sustained in a fall. History of syncope is strongly consistent with syncope. Limited workup for alternative causes of syncope as the differential includes electrical cardiac problems, significant electrolyte problems, among others will be conducted with chest x-ray, EKG, hematologic labs. Noncontrasted CT scan of the head cervical spine will be obtained. X-ray chest and elbow be obtained. Tdap will be updated. Wounds were dressed by nursing at bedside as they do not require primary repair. Workup reviewed by me, hematologic labs are nonactionable, chronic hyponatremia which is significantly improved from prior, no critical electrolyte abnormalities or JENNIFER. Chest x-ray informally interpreted by me, no large pneumothorax. Noncontrasted CT scan of the head no acute intracranial abnormality, cervical spine no acute abnormality, heavy carotid bulb plaque. Upon repeat evaluation patient was well-appearing and ambulatory bedside. Given this patient is appropriate for outpatient management at this time will defer to cardiology for further diagnostic evaluation of his carotid bulb plaque. Critical Care Critical Care Time Critical Care Time: No
--- NOTE | 2024-05-14 08:48 | PC.NURSE ---
radiology called to go ahead and take pt to scan without lab results.
--- NOTE | 2024-05-14 08:50 | ECG_ITS ---
APPROVED REPORT Exam: Resting ECG HR:79 bpm ECG Measurements Heart Rate 79 AXES TN 169 P 67 QRSd 146 QRS -31 QT 407 T -38 QTc 442 Conclusion SINUS RHYTHM POSSIBLE LEFT ATRIAL ENLARGEMENT [-0.1mV P-WAVE IN V1/V2] LEFT AXIS DEVIATION [QRS AXIS < -30] LEFT BUNDLE BRANCH BLOCK [120+ ms QRS DURATION, 80+ ms Q/S IN V1/V2, 85+ ms R IN I/aVL/V5/V6] ABNORMAL ECG Left bundle branch block negative Sgarbossa Electronically signed by : ESTELITA TOWNSEND, 05/14/2024 15:43:57
--- NOTE | 2024-05-14 08:54 | XR_ITS ---
PROCEDURE INFORMATION: Exam: XR Chest Exam date and time: 05/14/2024 8:57 AM Age: 74 years old Clinical indication: Other: Syncope TECHNIQUE: Imaging protocol: Radiologic exam of the chest. Views: 1 view. COMPARISON: CT ANGIO CHEST PE PROTOCOL 04/11/2022 1:43 PM FINDINGS: Lungs: The lungs are hyperinflated. Chronic fibrotic changes. Pleural spaces: Scant right pleural effusion. No pneumothorax. Heart/Mediastinum: Unremarkable. No cardiomegaly. Vasculature: The aorta demonstrates mild atherosclerotic calcification. Bones/joints: Unremarkable. IMPRESSION: 1. Scant right pleural effusion appears new. 2. Otherwise chronic appearing findings including pulmonary fibrosis.
--- NOTE | 2024-05-14 08:54 | PC.NURSE ---
patient gone to CT at this time.
--- NOTE | 2024-05-14 08:54 | PC.NURSE ---
pt going to ct
--- NOTE | 2024-05-14 08:59 | PC.NURSE ---
skin tears to tania arms were cleaned and dressed. pt tolerated well. currently in radiology
[2024-05-14 09:00] LABS: Basophils % 0.4 % (0.1-2.0); Eosinophils # 0.1 K/mm3 (0.0-0.4); Eosinophils % 0.6 % (0.1-12.0); Hematocrit 39.6 % (42.0-52.0); Hemoglobin 12.9 g/dL (14.1-18.0); Lymphocytes # 1.9 K/mm3 (0.7-4.5); Mean Corpuscular HGB Conc 32.5 g/dL (31.8-35.4); Mean Corpuscular Hemoglobin 29.8 pg (27.0-31.2); Mean Corpuscular Volume 91.6 fl (80-94); Mean Platelet Volume 7.3 fl (7.4-10.4); Monocytes # 0.4 K/mm3 (0.1-1.0); Monocytes % 4.3 % (1.7-9.3); Neutrophils # 6.5 K/mm3 (1.8-7.8); Neutrophils % 73.7 % (37.0-80.0); Platelet Count 241 K/mm3 (142-424); Red Blood Count 4.32 M/mm3 (4.60-6.20); Red Cell Distribution Width 14.4 % (11.5-17.5); White Blood Count 8.8 K/mm3 (4.8-10.8)
[2024-05-14 09:17] LABS: Anion Gap 8.5 mEq/L (5-15); Blood Urea Nitrogen 11 mg/dl (9-20); Carbon Dioxide 34 mmol/L (22.0-30.0); Chloride 92 mmol/L (98-107); Creatinine Clearance Estimated 54 mL/min (50-200); Estimated Glomerular Filt Rate 132 ml/min (>60); Potassium 4.5 mmoL/L (3.5-5.1); Sodium 130 mmol/L (136-145)
[2024-05-14 09:18] LABS: Alanine Aminotransferase 18 U/L (12-78); Albumin Level 3.9 g/dl (3.5-5.0); Albumin/Globulin Ratio 1.7 (1.1-1.8); Alkaline Phosphatase 42 U/L (38-126); Aspartate Amino Transferase 31 U/L (17-59); Bilirubin,Total 0.8 mg/dl (0.2-1.3); Calcium 8.7 mg/dl (8.4-10.2); GFR (African American) 159 ML/MIN (>60); Globulin 2.3 g/dL (1.3-3.2); Glucose 65 mg/dl (74-100); Magnesium 1.9 mg/dl (1.6-2.3); Total Protein,Serum 6.2 g/dl (6.3-8.2)
[2024-05-14 09:30] VITALS: BP 139/75; PULSE 79; O2SAT 99
[2024-05-14] MEDS: TET/DIPHTH/PERT-ADULT 0.5ML SYRINGE 0.5 ML IM (09:44)
[2024-05-14 10:00] VITALS: BP 141/74; PULSE 81; RESP 18; TEMP 36.7; O2SAT 100
[2024-05-14 11:23] LABS: HIV (1&2) Antibody Rapid NONREACTIVE (NONREACTIVE)
[2024-05-16 05:14] LABS: HCV Ab Non Reactive (Non Reactive)
== END 2024-05-14 10:01 | disposition home or self-care (01) ==
PROVIDERS: Emergency Provider Emergency Medicine
DX: J90 Pleural effusion, not elsewhere classified (principal); I65.29 Occlusion and stenosis of unspecified carotid artery; S00.93XA Contusion of unspecified part of head, initial encounter; R51.9 Headache, unspecified; M79.601 Pain in right arm; M79.602 Pain in left arm; Z23 Encounter for immunization; W18.39XA Other fall on same level, initial encounter; Y93.89 Activity, other specified; Y92.002 Bathroom of unspecified non-institutional (private) residence as the place of occurrence of the external cause
CPT/HCPCS: 70450; 71045; 72125; 73080; 80053; 83735; 85025; 86803; 87389; 90471; 90715; 93005; 99284

== ENCOUNTER 2024-08-30 14:58 | Inpatient (IN) | payer MEDICARE, OTHER, SELFPAY ==
[2024-08-30] VITALS (17 sets, daily range): BP systolic 92–138; BP diastolic 52–78; PULSE 60–113; RESP 15–40; TEMP 35.7–36.8; O2SAT 90–100; BMI 18.5; BMI 18.6
--- NOTE | 2024-08-30 15:01 | ECG_ITS ---
APPROVED REPORT Exam: Resting ECG HR:114 bpm ECG Measurements Heart Rate 114 AXES MS 160 P 72 QRSd 145 QRS 67 QT 359 T -48 QTc 427 Conclusion SINUS TACHYCARDIA WITH OCCASIONAL SUPRAVENTRICULAR PREMATURE COMPLEXES INTRAVENTRICULAR CONDUCTION DELAY [130+ ms QRS DURATION] Inferior changes but no STEMI, borderline left bundle branch block does not meet Arnolrbossa criteria Electronically signed by : MARANDA CEBALLOS, 08/31/2024 07:06:50
--- NOTE | 2024-08-30 15:16 | CT_ITS ---
FINAL REPORT TECHNIQUE: Thin section axial CT with contrast with multiplanar reconstruction This study was performed with techniques to keep radiation doses as low as reasonably achievable, (ALARA). Individualized dose reduction techniques using automated exposure control or adjustment of mA and/or kV according to the patient''s size were employed. CLINICAL HISTORY: CP L lower, worse with inspiration COMPARISON: 11/26/2023 FINDINGS: Pulmonary vessels enhance in normal fashion without evidence of embolism. Thoracic aorta shows no dissection or aneurysm. There is new, patchy airspace disease in the lower lobes consistent with pneumonia. Chronic interstitial changes are seen of the subpleural regions. There is nodularity at the right lung apex which is stable. There is no significant pleural effusion. There is no significant pericardial effusion. There is mild subcarinal adenopathy which is stable. No new adenopathy is seen. IMPRESSION: No evidence of pulmonary embolism. Bilateral lower lobe pneumonia, new from prior exam. Chronic interstitial lung disease. Reviewed, Interpreted and Dictated by Rasta Busby MD Transcribed by Ana Christensen Authenticated and [facility]
[2024-08-30 15:19] LABS: Lactate Venous 1.8 mmol/L (0.4-2.0); VBG Base Excess -0.1 mmol/L (-2.4-2.3); VBG HCO3 26.5 mmol/L (23-30); VBG Oxygen Saturation 64.1 % (50-70); VBG PCO2 56.4 mmol/L (35-51); VBG PH 7.29 mmol/L (7.31-7.41); VBG Total CO2 28.2 mmol/L (23-27)
--- NOTE | 2024-08-30 15:19 | ED_ITS ---
Discharge Plan Disposition Patient Disposition: Admitted Chief Complaint: Shortness of Breath/Dyspnea Prescriptions Prescriptions: No Action bisoprolol fumarate 10 mg Tablet 10 mg PO DAILY fluticasone propion-salmeterol [Wixela Inhub] 500-50 mcg/dose Blister With Device 1 inh INHALATION BID albuterol sulfate 90 mcg/actuation Hfa Aerosol Inhaler 2 puff INHALATION Q4H PRN (Reason: Shortness of air) Spiriva Respimat 2.5 mcg/actuation Mist 2 puff INHALATION DAILY apixaban 5 mg Tablet 5 mg PO BID ipratropium-albuterol 0.5 mg-3 mg(2.5 mg base)/3 mL Solution For Nebulization 3 ml inhalation Q6HP PRN (Reason: Shortness Of Breath) 30 Days Qty: 120 0RF aspirin 81 MG tablet,delayed release (DR/EC) 81 mg PO DAILY Referrals Follow up/Referrals: Provider,Referral, MD [Primary Care Provider] - See instructions Clinical Impressions Clinical Impression: Pneumonia, Non-ST elevation MO (NSTEMI), Bundle branch block Print Language Print Language: Kyrgyz Discharge ED Provider: Julien Smalls General Chief Complaint: Shortness of Breath/Dyspnea Stated Complaint: Chest Pain Time Seen by Provider: 08/30/24 15:06 Mode of Arrival: Wheelchair Source of Information: Patient Limitations: No Limitations Description of Symptoms (Recalled from ER Triage Doc. 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 Is been going on most of the day, worse with deep inspiration, left lower thoracic cage. He has not had chest pain like this before. No trauma. No abdominal pain or vomiting. No other acute complaints at this time. Does not radiate through to his back. No other acute complaints at this time. Please note that above description of symptoms, in this electronic medical record under categorization of recalled from ER triage doctor by RN are reflective of an initial nursing assessment, however, is not reflective of my full history and physical exam that was personally taken and clarified. Consequentially, this preceding description of symptoms, which may include the patient's categorized chief complaint in the EMR, do not reflect my personal clinical impression, and the ultimate description of history of present illness and patient stated complaints should be deferred to this section of the note. Unless stated otherwise or congruent with this section of the note, additional signs, symptoms, or incongruence should be interpreted as inaccurate with my clinical impression. Related Data Home Medications ?Medication ?Instructions ?Recorded ?Confirmed aspirin 81 mg tablet,delayed 81 mg PO DAILY Heart health 12/19/21 08/30/24 release albuterol sulfate 90 mcg/actuation 2 puff inhalation Q4H PRN 10/22/22 08/30/24 aerosol inhaler Shortness of air apixaban 5 mg tablet 5 mg PO BID Blood thinner, CAD 10/22/22 08/30/24 bisoprolol fumarate 10 mg tablet 10 mg PO DAILY High blood pressure 10/22/22 08/30/24 fluticasone 500 mcg-salmeterol 50 1 inh inhalation BID COPD 10/22/22 08/30/24 mcg/dose blistr powdr for inhalation (Wixela Inhub) tiotropium bromide 2.5 2 puff inhalation DAILY COPD 10/22/22 08/30/24 mcg/actuation mist for inhalation (Spiriva Respimat) Previous Rx's ?Medication ?Instructions ?Recorded ipratropium 0.5 mg-albuterol 3 mg 3 ml inhalation Q6HP PRN Shortness 10/22/22 (2.5 mg base)/3 mL nebulization Of Breath 30 days #120 ea soln Allergies Allergy/AdvReac Type Severity Reaction Status Date / Time No Known Allergies Allergy Verified 08/30/24 15:23 [facility] Disclaimer: The information contained in this section may have been updated after the patient was seen, as this information can be updated by other users. 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 [employer] caffeine: No Have you lived/traveled outside US in past 30 days?: No Contact w/someone who lives/traveled outside US past 30 days?: No Exposure to someone with infectious disease in past 14 days?: No Do you have a fever (greater than 100.4 F or 38 C)?: No Have you tested positive for COVID-19: No Exposed to someone with COVID-19 in past 14 days?: No Do you have a sore throat?: No Do you have a cough?: No Do you have any weakness?: No Do you have any diarrhea?: No Are you experiencing any unusual bleeding?: No Do you have any muscle aches/pain?: No Do you have any abdominal pain?: No Are you experiencing loss of taste or smell?: No Other Medical History Have you received the Flu Vaccine for this season: No Have you received the Pneumonia Vaccine: No ROS Obtained: Yes Systems reviewed as appropriate & no additional complaints except as documented Physical Exam General General appearance: alert and other (Appearing in pain in bed) Head Head exam: atraumatic and normocephalic Eye Eye exam: Present PERRL and EOMI ENT ENT exam: Present mucous membranes moist Neck Neck exam: Present normal inspection Chest Chest inspection: Present normal inspection and symmetric chest wall rise Respiratory Respiratory exam: Present normal lung sounds bilaterally; Absent respiratory distress Cardiovascular Cardiovascular exam: Present regular rate and normal rhythm Abdominal Exam Abdominal exam: Present soft; Absent tenderness Extremities Exam Extremities exam: Present normal inspection Neurological Exam Neurological exam: Present alert Psychiatric Psychiatric exam: Present normal affect Skin Skin exam: Present warm, dry and other (Bluish hue of the fingers bilaterally, palpable radial pulses bilaterally) HEART Score HEART Score HEART Score assessment performed?: Yes History (anamnesis): Highly suspicious ECG: Non-specific disturbance Age: >65 years Risk factors: Atherosclerosis history Troponin: > 3x normal limit HEART Score: 9 Critical Care Critical Care Time Critical Care Time: Yes Attestation: On 08/30/24, the high probability of a clinically significant, sudden or life threatening deterioration of the following system(s) required my full and direct attention, intervention and personal management. The time I documented below is in addition to time spent performing reported procedures but includes the following listed in this critical care notation. Total Time Total Critical Care Time: 40 Medical Decision Making Maninder Inquiry Pt receiving controlled substance: No Vital Signs Vital Signs: 08/30/24 14:58 08/30/24 16:02 08/30/24 16:03 Temperature 98.2 F Temperature Source Oral Pulse Rate 112 H Pulse Rate [Left Radial] 112 H Respiratory Rate 40 H 18 Blood Pressure 138/72 Blood Pressure [Right Arm] 128/78 Blood Pressure Mean Blood Pressure Mean [Right Arm] 94 02 Sat by Pulse Oximetry 95 90 L Oxygen Delivery Method Nasal Cannula Oxygen Flow Rate (LPM) 3 Fraction of Inspired Oxygen 21 08/30/24 16:30 08/30/24 17:00 Temperature Temperature Source Pulse Rate 109 H 113 H Pulse Rate [Left Radial] Respiratory Rate 19 20 Blood Pressure 118/63 118/67 Blood Pressure [Right Arm] Blood Pressure Mean 77 80 Blood Pressure Mean [Right Arm] 02 Sat by Pulse Oximetry 96 96 Oxygen Delivery Method Oxygen Flow Rate (LPM) Fraction of Inspired Oxygen Lab Data Labs: Lab Results 08/30/24 15:06: WBC 14.9 H, RBC 4.34 L, Hgb 13.1 L, Hct 39.5 L, MCV 91.0, MCH 30.2, MCHC 33.2, RDW 13.1, Plt Count 244, MPV 9.6, Neut % (Auto) 86.4 H, Lymph % (Auto) 5.9 L, [place] % (Auto) 6.9, Eos % (Auto) 0.1, Baso % (Auto) 0.3, Neut # (Auto) 12.9 H, Lymph # (Auto) 0.9, [place] # (Auto) 1.0, Eos # (Auto) 0.0, Baso # (Auto) 0.0, Sodium 125 L, Potassium 4.8, Chloride 83 L, Carbon Dioxide 34 H, Anion Gap 12.8, BUN 16, Creatinine 0.50 L, Estimated Creat Clear 54, Estimated GFR 163, Est GFR ( Amer) 197, Glucose 137 H, Calcium 8.9, Total Bilirubin 1.5 H, AST 28, ALT 23, Alkaline Phosphatase 66, Troponin I 0.09 H, Total Protein 7.0, Albumin 4.0, Globulin 3.0, Albumin/Globulin Ratio 1.3 08/30/24 15:16: VBG pH 7.29 L, VBG pCO2 56.4 H, VBG pO2 35.0, VBG HCO3 26.5, VBG Total CO2 28.2 H, VBG O2 Saturation 64.1, VBG Base Excess -0.1, VBG Lactic Acid 1.8 08/30/24 15:06 08/30/24 15:06 Response Orders (Tests/Meds): ED MEDICATIONS Generic Name Dose Route Start Last Admin Trade Name Freq PRN Reason Stop Dose Admin Ceftriaxone Sodium 1 gm/ 50 mls @ 100 mls/hr 08/30/24 17:22 Sodium Chloride IV 08/30/24 17:51 ONCE ONE Lactated Ringer's 500 mls @ 999 mls/hr 08/30/24 17:23 Lactated Ringer's 500ml IV 08/30/24 17:53 .Q31M ONE Nitroglycerin 0.4 mg 08/30/24 15:16 08/30/24 17:15 Nitroglycerin 0.4mg Sl Tablet SL 08/31/24 15:16 0.4 mg Q5MINP PRN Administration Chest Pain Discontinued Medications Generic Name Dose Route Start Last Admin Trade Name Freq PRN Reason Stop Dose Admin Aspirin 324 mg 08/30/24 15:16 08/30/24 15:32 Aspirin 81mg Chewable Tablet PO 08/30/24 15:17 324 mg ONCE ONE Administration Azithromycin 500 mg/ Sodium 250 mls @ 250 mls/hr 08/30/24 17:22 Chloride IV 08/30/24 17:23 ONCE ONE Iopamidol 80 ml 08/30/24 16:03 08/30/24 16:04 Iopamidol-370 (76%);100ml Bottle IV 08/30/24 16:04 80 ml ONCE ONE Administration Metoprolol Tartrate 50 mg 08/30/24 17:35 Metoprolol Tartrate 50mg Tablet PO 08/30/24 17:36 ONCE ONE Morphine Sulfate 4 mg 08/30/24 15:16 08/30/24 15:26 Morphine 4mg/Ml Syringe IV 08/30/24 15:17 4 mg ONCE ONE Administration Ondansetron HCl 4 mg 08/30/24 15:16 08/30/24 15:26 Ondansetron 4mg/2ml Vial IV 08/30/24 15:17 4 mg ONCE ONE Administration Sodium Chloride 50 ml 08/30/24 16:03 08/30/24 16:04 0.9 % Sodium Chloride 50 Ml Vial IV 08/30/24 16:04 50 ml ONCE ONE Administration Sodium Chloride 10 ml 08/30/24 16:03 08/30/24 16:04 Sodium Chloride 0.9% 10ml Syr (Rad Only) IV 08/30/24 16:04 10 ml ONCE ONE Administration ORDERS Category Date Time Status CT angio chest - dissection Stat Cat Scan 08/30/24 15:16 Completed BNP [NT Pro Brain Natriuretic Pep.] Stat Lab 08/30/24 15:06 Received Complete Blood Count Auto Diff Stat Lab 08/30/24 15:06 Completed Comprehensive Metabolic Panel Stat Lab 08/30/24 15:06 Completed Rapid PCR Covid and Flu A/B Stat Lab 08/30/24 17:27 Received Troponin I Q3H Lab 08/30/24 18:30 Ordered Troponin I Q3H Lab 08/30/24 21:30 Ordered Troponin I Stat Lab 08/30/24 15:06 Completed Blood Culture Stat Micro 08/30/24 17:38 Received VBG [Venous Blood Gas] Stat RT 08/30/24 15:16 Completed ECG Data Tracing #1: ECG Narrative: Independently interpreted by me rate is 114, rhythm is regular, axis is normal, no ST elevation in anatomical contiguous leads, left bundle branch block, negative Sgarbossa criteria, QTc 427. MDM Narrative Medical Decision Narrative: In summary patient is a 74-year-old male with past medical history described above presents emergency department for evaluation chest pain. Patient is hemodynamically stable and tachycardic upon arrival, appearing in pain. My concern for ACS is high, differential includes aortic dissection, pulmonary embolism, among others. 324 mg of aspirin will be obtained EKG obtained at bedside left bundle branch block negative Sgarbossa. Initial hematologic labs reviewed by me leukocytosis 14.9 of uncertain etiology patient does not have any infectious symptoms. Mild acidosis, chronic hyponatremia that is within the range of his hyponatremia at baseline, no JENNIFER. Initial troponin is elevated at 0.09 he has a normal baseline. CTA chest informally visualized by me, no obvious dissection or saddle pulmonary embolism formal read shows no evidence of PE bilateral lower lobe pneumonia with chronic interstitial lung disease. Upon repeat evaluation patient confirms he does not have any significant cough and does not smoke however he does wear chronic oxygen at baseline and given CT evidence of pneumonia with shortness of breath sound pneumonia will be treated with ceftriaxone and azithromycin given elevated white blood cell count. Technically he meets sepsis criteria, he appears largely euvolemic and sepsis bolus fluids were considered but will be deferred. Instead we will do gentle crystalloid resuscitation starting with 500 cc LR lactated Ringer's. I discussed case with Dr. Mendez, low concern for ACS equivalent at this time. Is reassuring that his chest pain has been going on all day. He recommends extended release metoprolol which will be ordered by me. Patient will be evaluated on an inpatient basis. I discussed case hospital medicine regarding management and they will admit the patient their service for continued evaluation at this time.
[2024-08-30 15:22] LABS: Basophils % 0.3 % (0.1-2.0); Eosinophils % 0.1 % (0.1-12.0); Hematocrit 39.5 % (42.0-52.0); Hemoglobin 13.1 g/dL (14.1-18.0); Lymphocytes # 0.9 K/mm3 (0.7-4.5); Lymphocytes % 5.9 % (10-50); Mean Corpuscular HGB Conc 33.2 g/dL (31.8-35.4); Mean Corpuscular Hemoglobin 30.2 pg (27.0-31.2); Mean Platelet Volume 9.6 fl (7.4-10.4); Monocytes % 6.9 % (1.7-9.3); Neutrophils # 12.9 K/mm3 (1.8-7.8); Neutrophils % 86.4 % (37.0-80.0); Platelet Count 244 K/mm3 (142-424); Red Blood Count 4.34 M/mm3 (4.60-6.20); Red Cell Distribution Width 13.1 % (11.5-17.5); White Blood Count 14.9 K/mm3 (4.8-10.8)
[2024-08-30 15:24] LABS: Chloride 83 mmol/L (98-107)
[2024-08-30 15:25] LABS: Potassium 4.8 mmoL/L (3.5-5.1); Sodium 125 mmol/L (136-145)
[2024-08-30] MEDS: ONDANSETRON 4MG/2ML VIAL 4 MG IV (15:26)
[2024-08-30] MEDS: MORPHINE 4MG/ML SYRINGE 4 MG IV (15:26)
[2024-08-30 15:27] LABS: Alanine Aminotransferase 23 U/L (12-78); Anion Gap 12.8 mEq/L (5-15); Aspartate Amino Transferase 28 U/L (17-59); Blood Urea Nitrogen 16 mg/dl (9-20); Carbon Dioxide 34 mmol/L (22.0-30.0); Creatinine Clearance Estimated 54 mL/min (50-200); Estimated Glomerular Filt Rate 163 ml/min (>60); GFR (African American) 197 ML/MIN (>60)
[2024-08-30 15:28] LABS: Albumin/Globulin Ratio 1.3 (1.1-1.8); Alkaline Phosphatase 66 U/L (38-126); Bilirubin,Total 1.5 mg/dl (0.2-1.3); Calcium 8.9 mg/dl (8.4-10.2); Glucose 137 mg/dl (74-100)
[2024-08-30] MEDS: ASPIRIN 81MG CHEWABLE TABLET 324 MG PO (15:32)
[2024-08-30 15:40] LABS: Troponin I 0.09 ng/ml (0.00-0.034)
--- NOTE | 2024-08-30 15:43 | PC.NURSE ---
rounded on the pt. the pt voices that he does not need anything at this time. call light is within reach of the pt.
[2024-08-30] MEDS: 0.9 % SODIUM CHLORIDE 50 ML VIAL IV (16:04)
[2024-08-30] MEDS: IOPAMIDOL-370 (76%);100ML BOTTLE 80 ML IV (16:04)
[2024-08-30] MEDS: SODIUM CHLORIDE 0.9% 10ML SYR (RAD ONLY) 10 ML IV (16:04)
--- NOTE | 2024-08-30 16:26 | PC.NURSE ---
rounded on the pt. the pt voices that he does not need anything at this time. call light is within reach of the pt.
[2024-08-30] MEDS: NITROGLYCERIN 0.4MG SL TABLET 0.4 MG SL (17:15)
--- NOTE | 2024-08-30 17:25 | ECG_ITS ---
APPROVED REPORT Exam: Resting ECG HR:106 bpm ECG Measurements Heart Rate 106 AXES AL 168 P 66 QRSd 146 QRS -57 QT 374 T 71 QTc 436 Conclusion SINUS TACHYCARDIA POSSIBLE LEFT ATRIAL ENLARGEMENT [-0.1mV P-WAVE IN V1/V2] LEFT AXIS DEVIATION [QRS AXIS < -30] LEFT BUNDLE BRANCH BLOCK [120+ ms QRS DURATION, 80+ ms Q/S IN V1/V2, 85+ ms R IN I/aVL/V5/V6] Left bundle branch block, does not meet Sgarbossa criteria, inferior ST changes but no STEMI Electronically signed by : MARANDA CEBALLOS, 08/31/2024 07:08:44
[2024-08-30 17:32] LABS: Coronavirus 19, PCR Not Detected (NotDetected); Influenza A, PCR Not Detected (NotDetected); Influenza B, PCR Not Detected (NotDetected)
[2024-08-30] MEDS: CEFTRIAXONE 1 GM 1 GM in 0.9 % SODIUM CHLORIDE 50 ML IV (17:44)
[2024-08-30] MEDS: RINGERS SOLUTION,LACTATED 500 ML 999 ML IV (17:45)
[2024-08-30] MEDS: AZITHROMYCIN 500 MG in 0.9 % SODIUM CHLORIDE 250 ML 250 MG IV (17:45)
[2024-08-30] MEDS: METOPROLOL TARTRATE 50MG TABLET 50 MG PO (17:48)
--- NOTE | 2024-08-30 17:52 | PC.NURSE ---
rounded on the pt. the pt voices that he does not need anything at this time. call light is within reach of the pt. pt was given a cardiac tray.
[2024-08-30 17:54] LABS: NT Pro Brain Natriuretic Pep. 8710 pg/mL (0-125)
--- NOTE | 2024-08-30 18:05 | PC.NURSE ---
called house sup for bed assignment
--- NOTE | 2024-08-30 18:38 | PC.NURSE ---
called report to linda robertson and answered all questions
--- NOTE | 2024-08-30 18:46 | PC.NURSE ---
rounded on the pt. the pt voices that he does not need anything at this time. call light is within reach of the pt.
--- NOTE | 2024-08-30 18:46 | PC.NURSE ---
post residual bladder scan showed 30 ml
--- NOTE | 2024-08-30 18:59 | P.HP_ITS ---
<Statement entered by Ashok Bhatt MD - 09/04/24 22:58> Personally evaluated patient and agree with plan of care as outlined by the SOLAR SYSTEMS DESIGNER. History of Present Illness *Admission Date: 08/30/24 *Reason for visit:: Chest pain *History of present illness: This is a 74-year-old male who has a past medical history significant for exposure to agent orange, bundle branch block, coronary artery disease, chronic hypoxic hypercapnic respiratory failure, hyperlipidemia, hypertension, diastolic dysfunction, hyponatremia, atrial fibrillation, bilateral carotid artery stenosis, and cardiomyopathy who presents with a chief complaint of left- sided chest pain next to the ribs. Due to patient's symptoms, he presented to the emergency room for evaluation. While in the emergency room CT scan of the chest revealed bilateral lower lobe pneumonia. He did have an increase heart rate, increased white blood cell count, and due to source of pneumonia clinically he is meeting sepsis criteria. Patient's chest pain was discussed with fur blower operator who recommended extended release metoprolol. Patient has been admitted for further management. During my evaluation of the patient, patient states that he started having pain to his left lower side yesterday when he was in or out to [place]. He was there to have a check sign. He states the entire ride there and the way back he had this worsening chest pain. Today, his chest pain was worse with inspiration and was ongoing all day without any relief. Patient chronically wears oxygen at 3 L by nasal cannula., Patient states he has been coughing up thick sputum. He is currently denying any fever, chills, rigors, nausea, vomiting, lightheadedness, dizziness, shortness of breath, dyspnea, PND, orthopnea, lower extremity swelling, or diarrhea. Additional pertinent vitals obtained include a white blood cell count of 14.9, red blood cell count of 4.34, hemoglobin 13.1, hematocrit 39.5, neutrophils 86.4%, sodium 125, chloride of 83, carbon oxide 34, blood glucose 137, total bilirubin 1.5, troponin 0.09, BNP of 8710. [facility] Disclaimer: The information contained in this section may have been updated after the patient was seen, as this information can be updated by other users. 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 [employer] caffeine: No Have you lived/traveled outside [place] in past 30 days?: No Contact w/someone who lives/traveled outside US past 30 days?: No Exposure to someone with infectious disease in past 14 days?: No Do you have a fever (greater than 100.4 F or 38 C)?: No Have you tested positive for COVID-19: No Exposed to someone with COVID-19 in past 14 days?: No Do you have a sore throat?: No Do you have a cough?: No Do you have any weakness?: No Do you have any diarrhea?: No Are you experiencing any unusual bleeding?: No Do you have any muscle aches/pain?: No Do you have any abdominal pain?: No Are you experiencing loss of taste or smell?: No Other Medical History Have you received the Flu Vaccine for this season: No Have you received the Pneumonia Vaccine: No Review of Systems Review of Systems Review of systems:: pertinent systems reviewed and negative unless documented below Constitutional Constitutional: Reports system reviewed and no additional complaints, except as documented Eyes Eyes: Reports system reviewed and no additional complaints, except as documented ENT Ears, Nose, Mouth, and Throat: Reports system reviewed and no additional complaints, except as documented *Cardiovascular Cardiovascular: Reports chest pain and Reports dyspnea *Respiratory Respiratory: Reports dyspnea and Reports pain on inspiration *Gastrointestinal Gastrointestinal: Reports system reviewed and no additional complaints, except as documented *Genitourinary Genitourinary: Reports system reviewed and no additional complaints, except as documented *Musculoskeletal Musculoskeletal: Reports system reviewed and no additional complaints, except as documented Integumentary/Breasts Skin/Breast: Reports system reviewed and no additional complaints, except as documented *Neurologic Neurologic: Reports system reviewed and no additional complaints, except as documented Psychiatric Psychiatric: Reports system reviewed and no additional complaints, except as documented Endocrine Endocrine: Reports system reviewed and no additional complaints, except as documented Hematologic/Lymphatic Hematologic/Lymphatic: Reports system reviewed and no additional complaints, except as documented Allergic/Immunologic Allergic/Immunologic: Reports system reviewed and no additional complaints, except as documented Meds Home Medications and Allergies Home Medications ?Medication ?Instructions ?Recorded ?Confirmed ?Type aspirin 81 mg tablet,delayed 81 mg PO DAILY Heart health 12/19/21 08/30/24 History release albuterol sulfate 90 mcg/actuation 2 puff inhalation Q4H PRN 10/22/22 08/30/24 History aerosol inhaler Shortness of air apixaban 5 mg tablet 5 mg PO BID Blood thinner, CAD 10/22/22 08/30/24 History bisoprolol fumarate 10 mg tablet 10 mg PO DAILY High blood pressure 10/22/22 08/30/24 History fluticasone 500 mcg-salmeterol 50 1 inh inhalation BID COPD 10/22/22 08/30/24 History mcg/dose blistr powdr for inhalation (Wixela Inhub) ipratropium 0.5 mg-albuterol 3 mg 3 ml inhalation Q6HP PRN Shortness 10/22/22 08/30/24 Rx (2.5 mg base)/3 mL nebulization Of Breath 30 days #120 ea soln tiotropium bromide 2.5 2 puff inhalation DAILY COPD 10/22/22 08/30/24 History mcg/actuation mist for inhalation (Spiriva Respimat) New Prescriptions to Start Prescriptions: Allergies Allergy/AdvReac Type Severity Reaction Status Date / Time No Known Allergies Allergy Verified 08/30/24 15:23 Exam Data for Last 24 hours Vital signs and Labs for Last 24 Hours: Temp Pulse Resp BP Pulse Ox O2 Del Method O2 Flow Rate 98.2 F 99 H 20 92/63 L 100 Room Air 3 08/30/24 18:36 08/30/24 18:36 08/30/24 18:36 08/30/24 18:36 08/30/24 18:31 08/30/24 18:36 08/30/24 14:58 FiO2 21 08/30/24 16:03 Laboratory Results - last 24 hr 08/30/24 15:06: WBC 14.9 H, RBC 4.34 L, Hgb 13.1 L, Hct 39.5 L, MCV 91.0, MCH 30.2, MCHC 33.2, RDW 13.1, Plt Count 244, MPV 9.6, Neut % (Auto) 86.4 H, Lymph % (Auto) 5.9 L, Nuckolls % (Auto) 6.9, Eos % (Auto) 0.1, Baso % (Auto) 0.3, Neut # (Auto) 12.9 H, Lymph # (Auto) 0.9, Nuckolls # (Auto) 1.0, Eos # (Auto) 0.0, Baso # (Auto) 0.0, Sodium 125 L, Potassium 4.8, Chloride 83 L, Carbon Dioxide 34 H, Anion Gap 12.8, BUN 16, Creatinine 0.50 L, Estimated Creat Clear 54, Estimated GFR 163, Est GFR ( Amer) 197, Glucose 137 H, Calcium 8.9, Total Bilirubin 1.5 H, AST 28, ALT 23, Alkaline Phosphatase 66, Troponin I 0.09 H, NT-Pro-B Natriuret Pep 8710 H, Total Protein 7.0, Albumin 4.0, Globulin 3.0, Albumin/Globulin Ratio 1.3 08/30/24 15:16: VBG pH 7.29 L, VBG pCO2 56.4 H, VBG pO2 35.0, VBG HCO3 26.5, VBG Total CO2 28.2 H, VBG O2 Saturation 64.1, VBG Base Excess -0.1, VBG Lactic Acid 1.8 08/30/24 17:27: SARS-CoV-2 (PCR) Not detected, Influenza A Untype (PCR) Not detected, Influenza Type B (PCR) Not detected I & O for Last 24 hours: Intake & Output 08/27/24 08/28/24 08/29/24 08/30/24 23:59 23:59 23:59 23:59 Output Total 200 / 200 Balance -200 / -200 Weight 58.513 kg Constitutional Constitutional: no acute distress and thin *Routine HEENT Exam Head: Present normocephalic Eye: Present EOMI, PERRL and normal accommodation ENT: Present mucous membranes moist *Routine Neck Exam Neck: Present supple and full ROM *Routine Respiratory Exam Respiratory: Present diminished air movement, able to speak in complete sentences and symmetric chest movement *Routine Cardiovascular Exam Cardiovascular: Present RRR, Normal S1, Normal S2 and tachycardia *Routine Abdominal Exam Abdominal: Present soft and normoactive bowel sounds *Routine Rectal Exam Rectal:: deferred *Routine Genitalia Exam Genitalia:: deferred *Routine Extremities Exam Extremities: Present full ROM, pulses intact and normal capillary refill Routine Back/Spine/Pelvis Exam Back/Spine: Present full ROM *Routine Skin Exam Skin: Present intact, dry and warm *Routine Neurological Exam Neurological: Present alert, oriented X3, CN II-XII intact and normal speech Routine Psychiatric Exam Psychiatric: Present normal affect, normal thought process, cooperative, good insight and good judgment H&P: Result Impressions 71-year-old male who has known coronary artery disease presents with chest pain found to have bilateral lower lobe pneumonia on CTA of the chest Assessment and Plan *Assessment and plan (1) Sepsis: Status: Acute Qualifiers: Sepsis acute organ dysfunction status: unspecified Sepsis type: sepsis due to unspecified organism Qualified Code(s): A41.9 - Sepsis, unspecified organism Category: Medical Code(s): A41.9 - Sepsis, unspecified organism (2) Pneumonia: Status: Acute Qualifiers: Laterality: right Lung location: lower lobe of lung Pneumonia type: due to unspecified organism Qualified Code(s): J18.9 - Pneumonia, unspecified organism Category: Medical Code(s): J18.9 - Pneumonia, unspecified organism (3) Chest pain: Status: Acute Qualifiers: Chest pain type: chest pain on breathing Qualified Code(s): R07.1 - Chest pain on breathing Category: Medical Code(s): R07.9 - Chest pain, unspecified (4) Leukocytosis: Status: Acute Qualifiers: Leukocytosis type: unspecified Qualified Code(s): D72.829 - Elevated white blood cell count, unspecified Category: Medical Code(s): D72.829 - Elevated white blood cell count, unspecified (5) Acute on chronic respiratory failure with hypoxia and hypercapnia: Status: Acute Category: Medical Code(s): J96.21 - Acute and chronic respiratory failure with hypoxia; J96.22 - Acute and chronic respiratory failure with hypercapnia (6) Hyponatremia: Status: Acute Category: Medical Code(s): E87.1 - Hypo-osmolality and hyponatremia (7) Elevated troponin: Status: Acute Category: Medical Code(s): R79.89 - Other specified abnormal findings of blood chemistry (8) Elevated bilirubin: Status: Acute Category: Medical Code(s): R17 - Unspecified jaundice Plan Assessment: Sepsis: Patient is meeting sepsis criteria with increased heart rate, increased respiratory rate, increased white blood cell count, and source -Patient did not receive 30 mL/kg of IV hydration-appears to be euvolemic -Sepsis reperfusion screen performed -Obtain lactic acid -Blood cultures have been obtained Bilateral lower lobe community-acquired bacterial pneumonia -1 g Rocephin IV daily -250 mg azithromycin p.o. daily Chest pain: Most likely atypical -Low suspicion for acute coronary syndrome -Will follow the guidance of cardiology and start metoprolol 50 mg extended release -Will trend troponins Leukocytosis with left shift -Blood cultures x 2 have been obtained -Will obtain procalcitonin in a.m. Acute on chronic hypoxic hypercapnic respiratory failure -Will continue supplemental oxygen at 3 L by nasal cannula -Will consider BiPAP Hyponatremia -Appears to be chronic -Obtain urine sodium -Normal saline at 100 mL an hour -1 g sodium chloride p.o. twice daily-subjective change per attending Elevated troponin -Demand ischemia versus NSTEMI -Will follow recommendations of cardiology Elevated bilirubin -Abdominal exam is benign -Will fractionate bilirubin Plan: Admit patient to the MedSurg unit on telemetry Cardiac diet CBC/BMP daily 600 mg of Mucinex p.o. twice daily 5 mg [place] p.o. every 4 hours as needed moderate pain 2 mg morphine IV push every 2 hours as needed severe pain 4 mg Zofran IV push. Hours. Nausea vomit Full code Once med rec is updated and verified by pharmacy will restart patient's apixaban I have discussed this case with attending physician Dr. Bhatt and I look forward to more input
[2024-08-30 19:06] LABS: Troponin I 0.08 ng/ml (0.00-0.034)
--- NOTE | 2024-08-30 19:06 | PC.NURSE ---
Report called by maurice at 1830; waiting for transport to the floor
--- NOTE | 2024-08-30 19:16 | EXP.SEPSISRE ---
[facility] Tissue Perfusion Eval Sepsis Re-Evaluation Performed: Yes Date Performed: 08/30/24 Time Performed: 19:16
--- NOTE | 2024-08-30 19:27 | PC.NURSE ---
pt arrived to floor from ed via stretcher at 192.
[2024-08-30] MEDS: LEVALBUTEROL 1.25MG/3ML NEB 1.25 MG IH (20:31)
[2024-08-30 20:45] LABS: Lactate Venous 0.9 mmol/L (0.4-2.0)
[2024-08-30] MEDS: 0.9 % SODIUM CHLORIDE 1000ML 1,000 ML 100 ML IV (22:23)
[2024-08-31] VITALS (84 sets, daily range): BP systolic 81–140; BP diastolic 46–94; PULSE 67–103; RESP 9–39; TEMP 36.2–37.6; O2SAT 82–100; BMI 18.3
[2024-08-31 01:06] LABS: Lactate Venous 1.1 mmol/L (0.4-2.0); VBG Base Excess 2.4 mmol/L (-2.4-2.3); VBG HCO3 30.1 mmol/L (23-30); VBG Oxygen Saturation 87.9 % (50-70); VBG PCO2 75.3 mmol/L (35-51); VBG PH 7.22 mmol/L (7.31-7.41); VBG Total CO2 32.4 mmol/L (23-27)
[2024-08-31] MEDS: METHYLPREDNISOLONE SOD SUCC 125MG VIAL 125 MG IV (01:21)
[2024-08-31] MEDS: FUROSEMIDE 20 MG/2 ML VIAL IV (01:23)
--- NOTE | 2024-08-31 01:38 | XR_ITS ---
PROCEDURE INFORMATION: Exam: XR Chest Exam date and time: 08/31/2024 2:17 AM Age: 74 years old Clinical indication: Shortness of breath; Additional info: SOB TECHNIQUE: Imaging protocol: Radiologic exam of the chest. Views: 1 view. COMPARISON: CT ANGIO CHEST 08/30/2024 3:54 PM FINDINGS: Lungs: There are emphysematous changes and peripheral interstitial disease. Patchy airspace disease is noted at the right lung base. Pleural spaces: Unremarkable. No pleural effusion. No pneumothorax. Heart/Mediastinum: Unremarkable. Mild cardiomegaly. Vasculature: Unremarkable. Bones/joints: Unremarkable. IMPRESSION: Patchy airspace disease right lung base consistent with pneumonia. Bilateral airspace disease is noted on the CT scan from 1 day earlier.
--- NOTE | 2024-08-31 01:39 | EXP.EVENT.NO ---
Venous blood gas shows worsening hypercapnia. Presented to patient's bedside. Assessment complete: Patient is lethargic, noted expiratory wheezing in right lower lobe, S1-S2 no murmur no rub, noted venous blood gas shows a pCO2 of 75.3 pH is 7.22 pO2 of 61, bicarb of 30. Will transition patient to the intensive care unit. Increase IPAP to 18 increased EPAP to 8; give patient 40 mg of Lasix, discontinue IV fluid, Place Muñoz catheter. Will update attending physician
--- NOTE | 2024-08-31 01:52 | PC.NURSE ---
Patient arrived to ICU unit from [facility] via bed @01:27
--- NOTE | 2024-08-31 02:04 | PC.NURSE ---
Pt. was admitted at change of shift. Per ED report, pt. was alert and orientated x 4. upon arrivgal to floor pt. alert eyes open but not answering any questions. Pt. on Oxygen 4 liters per N/C. Pt. rectal temp 96.3. warm blankets applied. Pt. became lethartgic . aroused with voice and shaking, Moans when asked a questions. unable to do admission questions. No family here. Pt. had VBG and was placed on BiPAP. VBG drawn 2 hours after start of BiPAP. Pt. condition worsened. FELISA Fleming at bedside. Pt. transferred to ICU for further care and possible intubation . Report to Florin Lozada RN.
--- NOTE | 2024-08-31 02:19 | PC.NURSE ---
Patient arrived to unit obtunded and minially responsive to shaking stimuli. After stimulation patient was aroused to name, and able to state name, along with shaking head no to being in pain. Patient appears very lethargic, with shallow respirations. Temp sensing reyna placed, UA specimen sent to lab. Patient placed on monitoring in unit, and tolerated well. Mepilex placed to coccyx for prevention of breakdown and bony prominences. Patient placed on bipap per provider order, respiratory at bedside during transfer. Provider requests that patient O2sats maintian between 85-92% fue to patient being a retainer. VU. Patient repositioned to comfort, and placed in right side lying position.
[2024-08-31 03:39] LABS: Lactate Venous 1.1 mmol/L (0.4-2.0); VBG Base Excess 2.8 mmol/L (-2.4-2.3); VBG HCO3 29.8 mmol/L (23-30); VBG Oxygen Saturation 68.9 % (50-70); VBG PCO2 67.8 mmol/L (35-51); VBG PH 7.26 mmol/L (7.31-7.41); VBG Total CO2 31.9 mmol/L (23-27)
[2024-08-31 05:08] LABS: Microscopic, Urine URINE MICROSCOPIC (MICROSCOPIC)
[2024-08-31 05:09] LABS: Appearance,Urine CLEAR (Clear); Blood, Urine Negative (Negative); Glucose,Urine (UA) Negative (Negative); Ketones,Urine TRACE (Negative); Leukocyte Esterase,Urine Negative (Negative); Nitrate,Urine Negative (Negative); Protein,Urine 1+ (Negative); Urobilinogen,Urine >=8.0 EU/dl (0.2)
[2024-08-31 05:14] LABS: Bilirubin,Urine Negative (Negative); Color,Urine Dark Yellow (Yellow)
[2024-08-31 05:26] LABS: Bacteria,Urine Trace /lpf; Squamous Epithelial Cell,Urine Occasional #/hpf (0-5)
[2024-08-31] MEDS: LEVALBUTEROL 1.25MG/3ML NEB 1.25 MG IH (06:30)
[2024-08-31 07:06] LABS: Basophils % 0.1 % (0.1-2.0); Hematocrit 39.7 % (42.0-52.0); Hemoglobin 12.7 g/dL (14.1-18.0); Lymphocytes # 0.4 K/mm3 (0.7-4.5); Lymphocytes % 3.7 % (10-50); Mean Corpuscular Volume 93.6 fl (80-94); Mean Platelet Volume 9.5 fl (7.4-10.4); Monocytes # 0.1 K/mm3 (0.1-1.0); Monocytes % 1.4 % (1.7-9.3); Neutrophils # 8.8 K/mm3 (1.8-7.8); Neutrophils % 94.4 % (37.0-80.0); Platelet Count 240 K/mm3 (142-424); Red Blood Count 4.24 M/mm3 (4.60-6.20); Red Cell Distribution Width 13.3 % (11.5-17.5); White Blood Count 9.3 K/mm3 (4.8-10.8)
[2024-08-31 07:10] LABS: MANUAL DIFFERENTIAL MANUAL DIFFERENTIAL (MANUAL DIFF)
[2024-08-31 07:34] LABS: Blood Urea Nitrogen 22 mg/dl (9-20); Calcium 8.4 mg/dl (8.4-10.2); Carbon Dioxide 33 mmol/L (22.0-30.0); Chloride 88 mmol/L (98-107); Creatinine Clearance Estimated 53 mL/min (50-200); Estimated Glomerular Filt Rate 132 ml/min (>60); GFR (African American) 159 ML/MIN (>60); Glucose 169 mg/dl (74-100); Sodium 124 mmol/L (136-145)
--- NOTE | 2024-08-31 07:44 | CA_ITS ---
APPROVED REPORT EXAM: Comprehensive 2D, Doppler, and color-flow Echocardiogram Digital Advertising Specialist: Marilyn Tellez RVT Ht: 5 ft 10 in Wt: 127lbs BSA: 1.72 BP: 92/63 mmHg Indications: CP,NSTEMI,CAD,RBBB,A-FIB,CM,NSTEMI,PNEUMONIA,COPD,HTN,HLD,DM Echo Enhancing Agent Indication: Endocardial border delineation Agent(s) / Amount(s) Used: Definity 2 cc 2D Dimensions IVSd 1.05 cm M: 0.6-1.2 LVEF (Visual) 23.80 % PWd 0.98 cm M: 0.6 - 1.2 LA Volume 51.60 mL LVDd 4.14 cm M: 4.2 - 5.9 LA Volume Index 30.00 mL/m2 (M/F) 16-34 LVDs 3.69 cm M: 2.5 - 4.0 M-Mode Dimensions RVDd 2.93 cm (0.9-2.6) LA Diam 3.11 cm (1.9-4.0) LVDd 3.53 cm (3.5-5.7) LVDs 2.85 cm (3.5-5.7) IVSd 1.03 cm (0.6-1.1) PWd 0.87 cm (0.6-1.1) EF (Teich) 40.50% FS 19.30% EDV (Teich) 51.90 mL TAPSE 1.58 (<1.7) ESV (Teich) 30.90 mL LV Diastology E Decel Time 150 (160-240 msec) E/A Ratio 0.7 Aortic Valve TAE Index 0.78 cm2/m2 AoV Peak Kishan. 231.0 (50-130 cm/s) AO Peak GR. 21.30 mmHg AO Mean GR. 11.60 (<5 mmHg) AO VTI 42.2 (18-25 cm) TAE (VTI) 1.38 (2.5-4.5 cm2) Mitral Valve MV E Max Kishan. 79.0 (40-130 cm/s) MV A Velocity 112.0 (40-130 cm/s) E/A Ratio 0.70 MV Mean Gr. 4.30 (<2mmHg) MV PHT 44.0 ms Pulmonary Valve PV Peak Velocity 69.0 (50-150 cm/s) Tricuspid Valve TR P. Velocity 310.00 cm/s RAP Estimate 10.00 mmHg RVSP 48.50 mmHg Left Ventricle The left ventricle is normal size. The left ventricular systolic function is severely reduced. There is increased LV wall thickness. Severe global hypokinesis is present. The septum is asynchronous. Grade 2 diastolic dysfunction is present. LVEF is 20-25%. Right Ventricle Right ventricle is moderately dilated. Right ventricle is severely hypokinetic. Atria Left atrium is mildly dilated. Right atrium is mildly dilated. There is no Doppler evidence of interatrial shunt. Aortic Valve The aortic valve is moderately thickened. Moderate aortic stenosis is present. TAE by continued equation is 1.3 m/s. Peak velocity 2.5 m/s. Mean AV gradient 12 mmHg. Max AV gradient 27 mmHg. The transaortic peak velocity may be underestimated due to reduced systolic function. Mild aortic regurgitation. Mitral Valve Moderate mitral annular calcification. The mitral valve leaflets are mildly thickened. No evidence of mitral valve stenosis. Mean MV gradient 4 mmHg (HR 94 bpm). Mild mitral regurgitation. Tricuspid Valve Tricuspid valve is grossly normal in structure and function. Mild tricuspid regurgitation. RVSP is 50-55 mmHg. Pulmonic Valve The pulmonary valve is normal in structure. Trace pulmonic regurgitation. Great Vessels The aortic root is normal in size. The ascending aorta is not well-visualized. IVC is dilated. Pericardium There is no pericardial effusion. Other Information Study Quality: Fair Conclusion Severely reduced LV systolic function (LVEF 20-25%). Grade 2 diastolic dysfunction is present. Moderate RV dilation with severe reduction in RV function. Biatrial dilation. Moderate (TAE by continued equation is 1.3 m/s. Peak velocity 2.5 m/s. Mean AV gradient 12 mmHg. Max AV gradient 27 mmHg. The transaortic peak velocity may be underestimated due to reduced systolic function). Mild AI, mild MR, mild TR. RVSP is 50-55 mmHg. Electronically signed by : Yary Cerrato MD 08/31/2024 12:57:07
[2024-08-31 08:10] LABS: Troponin I 0.13 ng/ml (0.00-0.034)
[2024-08-31 09:46] LABS: Lactate Venous 1.5 mmol/L (0.4-2.0); VBG Base Excess 4.3 mmol/L (-2.4-2.3); VBG HCO3 31.1 mmol/L (23-30); VBG Oxygen Saturation 93.3 % (50-70); VBG PCO2 67.8 mmol/L (35-51); VBG PH 7.28 mmol/L (7.31-7.41); VBG PO2 75.1 mmol/L (28-40); VBG Total CO2 33.2 mmol/L (23-27)
[2024-08-31] MEDS: DEFINITY US ECHO CONTRAST 2ML INJ 2 MG IV (09:47)
[2024-08-31 09:59] LABS: Lymphocytes % 3 % (10-50); Monocytes % 1 % (2-9); Neutrophils % 96 % (42-76); Total Cells Counted 100
[2024-08-31 10:00] LABS: Platelet Estimate Normal; RBC Morphology Normal
--- NOTE | 2024-08-31 10:06 | PC.NURSE ---
RESP CARE NOTE: Pt IPAP increased to 20 cmH2O, EPAP decreased to 5cmH2O, Rate to [address] Bhatt. Will continue to monitor patient.
[2024-08-31] MEDS: METHYLPREDNISOLONE SOD SUCC 40MG VIAL 40 MG IV ×2 (10:25→20:08)
[2024-08-31] MEDS: IPRATROPIUM/ALBUTEROL 3 ML NEB IH ×4 (11:00→22:12)
--- NOTE | 2024-08-31 11:01 | P.CONCA_ITS ---
History of Present Illness History of Present Illness Consult date: 08/31/24 Requesting physician: Ashok Bhatt Consult reason: chest pain Chief complaint: Pneumonia, HFrEF Additional Medical History:: 1. CAD A. STEMI with GARRY to RCA in 02/2021. B. Hx of previous PA as well. C. Has been seeing websphere message broker developer at [place] 2. Hypertension A. Renal artery stenosis, moderate, Abd CTA, 11/2023 B. EF of 55% on echo in 03/19/2021 previous was 45% 3. HLD-LDL goal is < 55 A. LDL is 63 in 02/2021. Managed by PCP. 4. Hx of TITUS A. followed by [place] for this. 5. Abnormal EKG A. EKG, 2022, NSR, RAD, IVCD, cannot rule out septal infarct, age undetermined, T wave abnormality, consider inferolateral ischemia, rate is 78 bpm. His EKG has changed since previous one done at the office from 2021 with width of IVCD interval. 6. PAD A. Possible significant stenosis at origins of celiac and SMA origins, Abd CTA, 11/2023 7. COPD with history of Agent orange exposure A. Chest CTA, 11/2023, coarse interstitial appearing bilateral opacities, likely fibrosis. History of present illness: Pt is obtunded this AM. History from chart. This is a 74-year-old male who has a past medical history significant for exposure to agent orange, bundle branch block, coronary artery disease, chronic hypoxic hypercapnic respiratory failure, hyperlipidemia, hypertension, diastolic dysfunction, hyponatremia, atrial fibrillation, bilateral carotid artery stenosis, and cardiomyopathy who presents with a chief complaint of left- sided chest pain next to the ribs. Due to patient's symptoms, he presented to the emergency room for evaluation. While in the emergency room CT scan of the chest revealed bilateral lower lobe pneumonia. He did have an increase heart ra te, increased white blood cell count, and due to source of pneumonia clinically he is meeting sepsis criteria. Patient's chest pain was discussed with websphere message broker developer who recommended extended release metoprolol. Patient has been admitted for further management. During my evaluation of the patient, patient states that he started having pain to his left lower side yesterday when he was in or out to [place]. He was there to have a check sign. He states the entire ride there and the way back he had this worsening chest pain. Today, his chest pain was worse with inspiration and was ongoing all day without any relief. Patient chronically wears oxygen at 3 L by nasal cannula., Patient states he has been coughing up thick sputum. He is currently denying any fever, chills, rigors, nausea, vomiting, lightheadedness, dizziness, shortness of breath, dyspnea, PND, orthopnea, lower extremity swelling, or diarrhea. Additional pertinent vitals obtained include a white blood cell count of 14.9, red blood cell count of 4.34, hemoglobin 13.1, hematocrit 39.5, neutrophils 86.4%, sodium 125, chloride of 83, carbon oxide 34, blood glucose 137, total bilirubin 1.5, troponin 0.09, BNP of 8710. The above per Bright Fleming APRN for the Hospitalist service. [facility] Disclaimer: The information contained in this section may have been updated after the patient was seen, as this information can be updated by other users. 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 [employer] caffeine: No Have you lived/traveled outside US in past 30 days?: No Contact w/someone who lives/traveled outside US past 30 days?: No Exposure to someone with infectious disease in past 14 days?: No Do you have a fever (greater than 100.4 F or 38 C)?: No Have you tested positive for COVID-19: No Exposed to someone with COVID-19 in past 14 days?: No Do you have a sore throat?: No Do you have a cough?: No Do you have any weakness?: No Do you have any diarrhea?: No Are you experiencing any unusual bleeding?: No Do you have any muscle aches/pain?: No Do you have any abdominal pain?: No Are you experiencing loss of taste or smell?: No Review of Systems Review of Systems Review of systems:: unable to obtain *Neurologic Neurologic: Reports system reviewed and no additional complaints, except as documented Exam Data for Last 24 hours Vital signs and Labs for Last 24 Hours: Temp Pulse Resp BP Pulse Ox O2 Del Method O2 Flow Rate 99.0 F 96 H 17 89/49 L 98 Nasal Cannula 2 08/31/24 09:30 08/31/24 09:30 08/31/24 09:30 08/31/24 09:15 08/31/24 09:30 08/31/24 09:15 08/31/24 09:15 FiO2 08/31/24 10:02 Laboratory Results - last 24 hr 08/30/24 15:06: WBC 14.9 H, RBC 4.34 L, Hgb 13.1 L, Hct 39.5 L, MCV 91.0, MCH 30.2, MCHC 33.2, RDW 13.1, Plt Count 244, MPV 9.6, Neut % (Auto) 86.4 H, Lymph % (Auto) 5.9 L, [place] % (Auto) 6.9, Eos % (Auto) 0.1, Baso % (Auto) 0.3, Neut # (Auto) 12.9 H, Lymph # (Auto) 0.9, [place] # (Auto) 1.0, Eos # (Auto) 0.0, Baso # (Auto) 0.0, Sodium 125 L, Potassium 4.8, Chloride 83 L, Carbon Dioxide 34 H, Anion Gap 12.8, BUN 16, Creatinine 0.50 L, Estimated Creat Clear 54, Estimated GFR 163, Est GFR ( Amer) 197, Glucose 137 H, Calcium 8.9, Total Bilirubin 1.5 H, AST 28, ALT 23, Alkaline Phosphatase 66, Troponin I 0.09 H, NT-Pro-B Natriuret Pep 8710 H, Total Protein 7.0, Albumin 4.0, Globulin 3.0, Albumin/Globulin Ratio 1.3 08/30/24 15:16: VBG pH 7.29 L, VBG pCO2 56.4 H, VBG pO2 35.0, VBG HCO3 26.5, VBG Total CO2 28.2 H, VBG O2 Saturation 64.1, VBG Base Excess -0.1, VBG Lactic Acid 1.8 08/30/24 17:27: SARS-CoV-2 (PCR) Not detected, Influenza A Untype (PCR) Not detected, Influenza Type B (PCR) Not detected 08/30/24 18:29: Troponin I 0.08 H 08/30/24 19:04: VBG Lactic Acid 0.9 08/30/24 20:15: Total Bilirubin 1.0 08/30/24 21:40: Troponin I 0.10 H 08/31/24 01:00: VBG pH 7.22 L, VBG pCO2 75.3 H, VBG pO2 61.0 H, VBG HCO3 30.1 H, VBG Total CO2 32.4 H, VBG O2 Saturation 87.9 H, VBG Base Excess 2.4 H, VBG Lactic Acid 1.1 08/31/24 01:40: Urine Color Dark yellow, Urine Appearance Clear, Urine pH 6.0, Ur Specific [place] 1.020, Urine Protein 1+ A, Urine Glucose (UA) Negative, Urine Ketones Trace, Urine Blood Negative, Urine Nitrate Negative, Urine Bilirubin Negative, Urine Urobilinogen >=8.0, Ur Leukocyte Esterase Negative, Urine RBC None, Urine WBC None, Ur Squamous Epith Cells Occasional, Urine Bacteria Trace, Urine Sodium 6.0 L 08/31/24 03:36: VBG pH 7.26 L, VBG pCO2 67.8 H, VBG pO2 38.0, VBG HCO3 29.8, VBG Total CO2 31.9 H, VBG O2 Saturation 68.9, VBG Base Excess 2.8 H, VBG Lactic Acid 1.1 08/31/24 06:44: WBC 9.3 D, RBC 4.24 L, Hgb 12.7 L, Hct 39.7 L, MCV 93.6, MCH 30.0, MCHC 32.0, RDW 13.3, Plt Count 240, MPV 9.5, Neut % (Auto) 94.4 H, Lymph % (Auto) 3.7 L, [place] % (Auto) 1.4 L, Eos % (Auto) 0.0 L, Baso % (Auto) 0.1, Neut # (Auto) 8.8 H, Lymph # (Auto) 0.4 L, [place] # (Auto) 0.1, Eos # (Auto) 0.0, Baso # (Auto) 0.0, Total Counted 100, Neutrophils % (Manual) 96 H, Lymphocytes % (Manual) 3 L, Monocytes % (Manual) 1 L, Platelet Estimate Normal, RBC Morphology Normal, Sodium 124 L, Potassium 5.0, Chloride 88 L, Carbon Dioxide 33 H, Anion Gap 8.0, BUN 22 H D, Creatinine 0.60 L, Estimated Creat Clear 53, Estimated GFR 132, Est GFR ( Amer) 159, Glucose 169 H D, Calcium 8.4, Troponin I 0.13 H , Procalcitonin 0.150 08/31/24 09:40: VBG pH 7.28 L, VBG pCO2 67.8 H, VBG pO2 75.1 H, VBG HCO3 31.1 H, VBG Total CO2 33.2 H, VBG O2 Saturation 93.3 H, VBG Base Excess 4.3 H, VBG Lactic Acid 1.5 I & O for Last 24 hours: Intake & Output 08/28/24 08/29/24 08/30/24 08/31/24 11:59 11:59 11:59 11:59 Intake Total 161 / 161 Output Total 750 / 750 Balance -589 / -589 Weight 127 lb 13.89 oz Constitutional Constitutional: obtunded *Routine Respiratory Exam Respiratory: Present decreased breath sounds and rhonchi *Routine Cardiovascular Exam Cardiovascular: Present RRR and murmur; Absent gallop or rubs *Routine Extremities Exam Extremities: Absent edema Meds Home Medications and Allergies Home Medications ?Medication ?Instructions ?Recorded ?Confirmed ?Type aspirin 81 mg tablet,delayed 81 mg PO DAILY 12/19/21 08/30/24 History release albuterol sulfate 90 mcg/actuation 2 puff inhalation Q4H PRN 10/22/22 08/30/24 History aerosol inhaler Shortness of air apixaban 5 mg tablet 5 mg PO BID 10/22/22 08/30/24 History amlodipine 5 mg tablet (Norvasc) 5 mg PO DAILY 08/31/24 08/31/24 History New Prescriptions to Start Prescriptions: Allergies Allergy/AdvReac Type Severity Reaction Status Date / Time No Known Allergies Allergy Verified 08/30/24 15:23 Assessment and Plan *Assessment and plan (1) Sepsis: Status: Acute Qualifiers: Sepsis acute organ dysfunction status: unspecified Sepsis type: sepsis due to unspecified organism Qualified Code(s): A41.9 - Sepsis, unspecified organism Category: Medical Code(s): A41.9 - Sepsis, unspecified organism (2) Acute on chronic respiratory failure with hypoxia and hypercapnia: Status: Acute Category: Medical Code(s): J96.21 - Acute and chronic respiratory failure with hypoxia; J96.22 - Acute and chronic respiratory failure with hypercapnia (3) Elevated bilirubin: Status: Acute Category: Medical Code(s): R17 - Unspecified jaundice (4) Elevated troponin: Status: Acute Category: Medical Code(s): R79.89 - Other specified abnormal findings of blood chemistry (5) Hyponatremia: Status: Acute Category: Medical Code(s): E87.1 - Hypo-osmolality and hyponatremia (6) Leukocytosis: Status: Acute Qualifiers: Leukocytosis type: unspecified Qualified Code(s): D72.829 - Elevated white blood cell count, unspecified Category: Medical Code(s): D72.829 - Elevated white blood cell count, unspecified (7) Pneumonia: Status: Acute Qualifiers: Laterality: bilateral Lung location: lower lobe of lung Pneumonia type: due to unspecified organism Qualified Code(s): J18.9 - Pneumonia, unspecified organism Category: Medical Code(s): J18.9 - Pneumonia, unspecified organism (8) Coronary artery disease: Status: Chronic Qualifiers: Associated angina: without angina Coronary Disease-Associated Artery/Lesion type: [place] artery [place] vs. transplanted heart: [place] heart Qualified Code(s): I25.10 - Atherosclerotic heart disease of [place] coronary artery without angina pectoris Category: Medical Code(s): I25.10 - Atherosclerotic heart disease of [place] coronary artery without angina pectoris (9) Cardiomyopathy: Status: Resolved Qualifiers: Cardiomyopathy type: ischemic Qualified Code(s): I25.5 - Ischemic cardiomyopathy Category: Medical Code(s): I42.9 - Cardiomyopathy, unspecified (10) HFrEF (heart failure with reduced ejection fraction): Status: Acute Category: Medical Code(s): I50.20 - Unspecified systolic (congestive) heart failure Plan 1. Bilateral lower lobe pneumonia with sepsis/hypoxic and hypercapnic respiratory failure -Currently on BiPAP -On ceftriaxone, azithromycin, methylprednisolone -Pulmonary following -Procalcitonin 0.15 2. Mildly Elevated troponins with new cardiomyopathy on echo this admission consistent with HFrEF -Unclear if this is new or acute on chronic (last echo at [facility] was 2020 with EF 55%). Transfered care to [facility] since 2022. -Minimize/cautious use of fluids -BNP 8710 -Add dobutamine and levophed 3. Hyponatremia at 125 4. Known CAD -prior PA with RCA stenting in 2020 5. Chronic lung disease with history of agent orange exposure 6. Prognosis poor Echo LVEF is about 15% Pt likely has combined pneumonia/resp failure with early cardiogenic shock. Will start Dobutamine and Levophed for BP support and to keep MAP >65. This may help with alertness/mentation.
[2024-08-31] MEDS: SODIUM CHLORIDE 3% 15ML NEB 3 ML IH (11:10)
--- NOTE | 2024-08-31 11:41 | CARE MANAGER ---
Spoke with Meme at [place] transfer office regarding transferring patient. She states no beds available.
--- NOTE | 2024-08-31 11:53 | P.CONPHA_ITS ---
Pharmacy Intervention Comments: HOME MEDICATION LIST VERIFIED USING LIST FROM [facility]
--- NOTE | 2024-08-31 11:53 | HMH.PHAINT1 ---
Pharmacy Intervention Comments: HOME MEDICATION LIST VERIFIED USING LIST FROM [facility]
[2024-08-31 12:08] LABS: Lactate Venous 1.3 mmol/L (0.4-2.0); VBG Base Excess 4.9 mmol/L (-2.4-2.3); VBG HCO3 28.8 mmol/L (23-30); VBG Oxygen Saturation 90.7 % (50-70); VBG PCO2 42.1 mmol/L (35-51); VBG PH 7.45 mmol/L (7.31-7.41); VBG PO2 53.3 mmol/L (28-40); VBG Total CO2 30.1 mmol/L (23-27)
[2024-08-31] MEDS: CEFTRIAXONE SODIUM 1 GM in 0.9 % SODIUM CHLORIDE 50 ML IV (12:34)
[2024-08-31] MEDS: DOBUTAMINE HCL/D5W 250 ML 4.35 MG IV (13:15)
[2024-08-31] MEDS: NOREPINEPHRINE BITARTRATE/D5W 8 MG/250 ML PLAST..BAG 3.75 MG IV (13:15)
--- NOTE | 2024-08-31 13:28 | PC.NURSE ---
RESP CARE NOTE: Pt placed on 2 lpm nc and BIPAP placed on stand by.
[2024-08-31] MEDS: ASPIRIN EC 81MG TABLET 81 MG PO (13:53)
[2024-08-31] MEDS: SODIUM CHLORIDE 1,000MG TABLET 1000 MG PO ×2 (13:53→20:09)
[2024-08-31] MEDS: guaiFENesin 600 MG TAB.ER.12H PO ×2 (13:54→20:08)
[2024-08-31] MEDS: AZITHROMYCIN 250MG TABLET 250 MG PO (13:54)
--- NOTE | 2024-08-31 14:36 | PC.NURSE ---
If map consistently over 80 wean dobutamine off per stiven johnson
--- NOTE | 2024-08-31 14:47 | P.CONS_ITS ---
History of Present Illness History of present illness: Much of the history is obtained from chart review. Mr. Mosher is a 74-year-old male with a prior history of agent orange exposure CAD, chronic hypoxic respiratory failure presented to the ER with worsening respiratory distress and his initial blood gas showed hypercarbic respiratory failure needing noninvasive ventilatory support and pulmonary was called for further evaluation and management. [facility] Disclaimer: The information contained in this section may have been updated after the patient was seen, as this information can be updated by other users. 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 [employer] caffeine: No Have you lived/traveled outside US in past 30 days?: No Contact w/someone who lives/traveled outside US past 30 days?: No Exposure to someone with infectious disease in past 14 days?: No Do you have a fever (greater than 100.4 F or 38 C)?: No Have you tested positive for COVID-19: No Exposed to someone with COVID-19 in past 14 days?: No Do you have a sore throat?: No Do you have a cough?: No Do you have any weakness?: No Do you have any diarrhea?: No Are you experiencing any unusual bleeding?: No Do you have any muscle aches/pain?: No Do you have any abdominal pain?: No Are you experiencing loss of taste or smell?: No Review of Systems Review of Systems Review of systems:: unable to obtain *Neurologic Neurologic: Reports system reviewed and no additional complaints, except as documented Pulmonology Exam Inpatient Vital signs and Labs for Last 24 Hours: Temp Pulse Resp BP Pulse Ox O2 Del Method O2 Flow Rate 99.1 F 98 H 26 H 107/49 L 86 L Nasal Cannula 2 08/31/24 14:30 08/31/24 14:30 08/31/24 14:30 08/31/24 14:30 08/31/24 14:30 08/31/24 14:16 08/31/24 14:16 FiO2 25 08/31/24 11:16 Laboratory Results - last 24 hr 08/30/24 15:06: WBC 14.9 H, RBC 4.34 L, Hgb 13.1 L, Hct 39.5 L, MCV 91.0, MCH 30.2, MCHC 33.2, RDW 13.1, Plt Count 244, MPV 9.6, Neut % (Auto) 86.4 H, Lymph % (Auto) 5.9 L, [place] % (Auto) 6.9, Eos % (Auto) 0.1, Baso % (Auto) 0.3, Neut # (Auto) 12.9 H, Lymph # (Auto) 0.9, [place] # (Auto) 1.0, Eos # (Auto) 0.0, Baso # (Auto) 0.0, Sodium 125 L, Potassium 4.8, Chloride 83 L, Carbon Dioxide 34 H, Anion Gap 12.8, BUN 16, Creatinine 0.50 L, Estimated Creat Clear 54, Estimated GFR 163, Est GFR ( Amer) 197, Glucose 137 H, Calcium 8.9, Total Bilirubin 1.5 H, AST 28, ALT 23, Alkaline Phosphatase 66, Troponin I 0.09 H, NT-Pro-B Natriuret Pep 8710 H, Total Protein 7.0, Albumin 4.0, Globulin 3.0, Albumin/Globulin Ratio 1.3 08/30/24 15:16: VBG pH 7.29 L, VBG pCO2 56.4 H, VBG pO2 35.0, VBG HCO3 26.5, VBG Total CO2 28.2 H, VBG O2 Saturation 64.1, VBG Base Excess -0.1, VBG Lactic Acid 1.8 08/30/24 17:27: SARS-CoV-2 (PCR) Not detected, Influenza A Untype (PCR) Not detected, Influenza Type B (PCR) Not detected 08/30/24 18:29: Troponin I 0.08 H 08/30/24 19:04: VBG Lactic Acid 0.9 08/30/24 20:15: Total Bilirubin 1.0 08/30/24 21:40: Troponin I 0.10 H 08/31/24 01:00: VBG pH 7.22 L, VBG pCO2 75.3 H, VBG pO2 61.0 H, VBG HCO3 30.1 H, VBG Total CO2 32.4 H, VBG O2 Saturation 87.9 H, VBG Base Excess 2.4 H, VBG Lactic Acid 1.1 08/31/24 01:40: Urine Color Dark yellow, Urine Appearance Clear, Urine pH 6.0, Ur Specific [place] 1.020, Urine Protein 1+ A, Urine Glucose (UA) Negative, Urine Ketones Trace, Urine Blood Negative, Urine Nitrate Negative, Urine Bilirubin Negative, Urine Urobilinogen >=8.0, Ur Leukocyte Esterase Negative, Urine RBC None, Urine WBC None, Ur Squamous Epith Cells Occasional, Urine Bacteria Trace, Urine Sodium 6.0 L 08/31/24 03:36: VBG pH 7.26 L, VBG pCO2 67.8 H, VBG pO2 38.0, VBG HCO3 29.8, VBG Total CO2 31.9 H, VBG O2 Saturation 68.9, VBG Base Excess 2.8 H, VBG Lactic Acid 1.1 08/31/24 06:44: WBC 9.3 D, RBC 4.24 L, Hgb 12.7 L, Hct 39.7 L, MCV 93.6, MCH 30.0, MCHC 32.0, RDW 13.3, Plt Count 240, MPV 9.5, Neut % (Auto) 94.4 H, Lymph % (Auto) 3.7 L, [place] % (Auto) 1.4 L, Eos % (Auto) 0.0 L, Baso % (Auto) 0.1, Neut # (Auto) 8.8 H, Lymph # (Auto) 0.4 L, [place] # (Auto) 0.1, Eos # (Auto) 0.0, Baso # (Auto) 0.0, Total Counted 100, Neutrophils % (Manual) 96 H, Lymphocytes % (Manual) 3 L, Monocytes % (Manual) 1 L, Platelet Estimate Normal, RBC Morphology Normal, Sodium 124 L, Potassium 5.0, Chloride 88 L, Carbon Dioxide 33 H, Anion Gap 8.0, BUN 22 H D, Creatinine 0.60 L, Estimated Creat Clear 53, Estimated GFR 132, Est GFR ( Amer) 159, Glucose 169 H D, Calcium 8.4, Troponin I 0.13 H , Procalcitonin 0.150 08/31/24 09:40: VBG pH 7.28 L, VBG pCO2 67.8 H, VBG pO2 75.1 H, VBG HCO3 31.1 H, VBG Total CO2 33.2 H, VBG O2 Saturation 93.3 H, VBG Base Excess 4.3 H, VBG Lactic Acid 1.5 08/31/24 12:02: VBG pH 7.45 H, VBG pCO2 42.1, VBG pO2 53.3 H, VBG HCO3 28.8, VBG Total CO2 30.1 H, VBG O2 Saturation 90.7 H, VBG Base Excess 4.9 H, VBG Lactic Acid 1.3 I & O for Labs for Last 24 Hours: Intake & Output 08/28/24 08/29/24 08/30/24 08/31/24 23:59 23:59 23:59 23:59 Intake Total 528.187 / 528.187 Output Total 200 / 200 800 / 800 Balance -200 / -39 -271.813 / -271.813 Weight 130 lb 127 lb 13.89 oz Constitutional: Present severe distress Head: Present normocephalic and atraumatic ENT: Present normal exam, normal oropharynx and mucous membranes moist Neck: Present normal inspection and full ROM Respiratory: Present prolonged expiratory phase, respiratory distress, wheezes and diminished air movement; Absent able to speak in complete sentences Cardiac: Present S1/S2, Tachycardia and radial pulses present GI: Present soft and distention; Absent tenderness or guarding Skin: Present intact; Absent cyanosis or jaundice Neuro: Absent alert, awake or oriented x 3 Comment:: Arousable to verbal stimuli Extremities: Present normal inspection; Absent clubbing or cyanosis Psychiatric: Present cooperative and unable to assess Meds Home Medications and Allergies Home Medications ?Medication ?Instructions ?Recorded ?Confirmed ?Type aspirin 81 mg tablet,delayed 81 mg PO DAILY 12/19/21 08/30/24 History release albuterol sulfate 90 mcg/actuation 2 puff inhalation Q4H PRN 10/22/22 08/30/24 History aerosol inhaler Shortness of air apixaban 5 mg tablet 5 mg PO BID 10/22/22 08/30/24 History amlodipine 5 mg tablet (Norvasc) 5 mg PO DAILY 08/31/24 08/31/24 History New Prescriptions to Start Prescriptions: Allergies Allergy/AdvReac Type Severity Reaction Status Date / Time No Known Allergies Allergy Verified 08/30/24 15:23 Results Laboratory Findings 08/31/24 06:44 08/31/24 06:44 Abnormal lab findings: Abnormal Labs 08/30/24 08/30/24 08/30/24 15:06 15:16 18:29 WBC 14.9 H RBC 4.34 L Hgb 13.1 L Hct 39.5 L Neut % (Auto) 86.4 H Lymph % (Auto) 5.9 L [place] % (Auto) Eos % (Auto) Neut # (Auto) 12.9 H Lymph # (Auto) Neutrophils % (Manual) Lymphocytes % (Manual) Monocytes % (Manual) VBG pH 7.29 L VBG pCO2 56.4 H VBG pO2 VBG HCO3 VBG Total CO2 28.2 H VBG O2 Saturation VBG Base Excess Sodium 125 L Chloride 83 L Carbon Dioxide 34 H BUN Creatinine 0.50 L Glucose 137 H Total Bilirubin 1.5 H Troponin I 0.09 H 0.08 H NT-Pro-B Natriuret Pep 8710 H Urine Protein Urine Sodium 08/30/24 08/31/24 08/31/24 21:40 01:00 01:40 WBC RBC Hgb Hct Neut % (Auto) Lymph % (Auto) [place] % (Auto) Eos % (Auto) Neut # (Auto) Lymph # (Auto) Neutrophils % (Manual) Lymphocytes % (Manual) Monocytes % (Manual) VBG pH 7.22 L VBG pCO2 75.3 H VBG pO2 61.0 H VBG HCO3 30.1 H VBG Total CO2 32.4 H VBG O2 Saturation 87.9 H VBG Base Excess 2.4 H Sodium Chloride Carbon Dioxide BUN Creatinine Glucose Total Bilirubin Troponin I 0.10 H NT-Pro-B Natriuret Pep Urine Protein 1+ A Urine Sodium 6.0 L 08/31/24 08/31/24 08/31/24 03:36 06:44 09:40 WBC RBC 4.24 L Hgb 12.7 L Hct 39.7 L Neut % (Auto) 94.4 H Lymph % (Auto) 3.7 L [place] % (Auto) 1.4 L Eos % (Auto) 0.0 L Neut # (Auto) 8.8 H Lymph # (Auto) 0.4 L Neutrophils % (Manual) 96 H Lymphocytes % (Manual) 3 L Monocytes % (Manual) 1 L VBG pH 7.26 L 7.28 L VBG pCO2 67.8 H 67.8 H VBG pO2 75.1 H VBG HCO3 31.1 H VBG Total CO2 31.9 H 33.2 H VBG O2 Saturation 93.3 H VBG Base Excess 2.8 H 4.3 H Sodium 124 L Chloride 88 L Carbon Dioxide 33 H BUN 22 H D Creatinine 0.60 L Glucose 169 H D Total Bilirubin Troponin I 0.13 H NT-Pro-B Natriuret Pep Urine Protein Urine Sodium 08/31/24 12:02 WBC RBC Hgb Hct Neut % (Auto) Lymph % (Auto) [place] % (Auto) Eos % (Auto) Neut # (Auto) Lymph # (Auto) Neutrophils % (Manual) Lymphocytes % (Manual) Monocytes % (Manual) VBG pH 7.45 H VBG pCO2 VBG pO2 53.3 H VBG HCO3 VBG Total CO2 30.1 H VBG O2 Saturation 90.7 H VBG Base Excess 4.9 H Sodium Chloride Carbon Dioxide BUN Creatinine Glucose Total Bilirubin Troponin I NT-Pro-B Natriuret Pep Urine Protein Urine Sodium Assessment and Plan *Assessment and plan (1) Acute on chronic respiratory failure with hypoxia and hypercapnia: Status: Acute Category: Medical Code(s): J96.21 - Acute and chronic respiratory failure with hypoxia; J96.22 - Acute and chronic respiratory failure with hypercapnia (2) Fibrosis of lung: Status: Acute Category: Medical Code(s): J84.10 - Pulmonary fibrosis, unspecified (3) Pulmonary emphysema: Status: Acute Category: Medical Code(s): J43.9 - Emphysema, unspecified (4) Pneumonia: Status: Acute Qualifiers: Laterality: bilateral Lung location: lower lobe of lung Pneumonia type: due to unspecified organism Qualified Code(s): J18.9 - Pneumonia, unspecified organism Category: Medical Code(s): J18.9 - Pneumonia, unspecified organism Plan Much of the history is obtained from chart review. Mr. Mosher is a 74-year-old male with a prior history of agent orange exposure CAD, chronic hypoxic respiratory failure presented to the ER with worsening respiratory distress and his initial blood gas showed hypercarbic respiratory failure needing noninvasive ventilatory support and pulmonary was called for further evaluation and management. CT chest bilateral subpleural interstitial changes along with patchy airspace disease. Paraseptal emphysematous changes also noted. Neutrophilic predominant leukocytosis upon admission, improving. COVID-19 and flu PCR panel negative. Admission ABG hypercarbic respiratory failure with a pH of 7.22 and pCO2 75.3. BiPAP settings changes morning and follow-up ABG showed significant improvement in the noted hypercarbic respiratory failure with a pH now at 7.45 and pCO2 42.1 Initial examination auscultation bilateral rhonchorous breath sounds and diffuse wheezing. Plan: DuoNebs every 4 hours along with Pulmicort every 12 scheduled Given improvement in hypercarbic respiratory failure, wean to nasal cannula to maintain O2 saturation goal of 90% and above. Will resume BiPAP therapy overnight. Continue ceftriaxone azithromycin pending blood and sputum culture results Methylprednisolone 40 every 12 hours.
--- NOTE | 2024-08-31 18:54 | EXP.PN ---
Subjective *Date: 08/31/24 *Time: 21:35 Exam Data for Last 24 hours Vital signs and Labs for Last 24 Hours: Temp Pulse Resp BP Pulse Ox O2 Del Method O2 Flow Rate 99.1 F 93 H 18 120/58 L 94 L Nasal Cannula 3 08/31/24 16:15 08/31/24 18:00 08/31/24 18:00 08/31/24 18:15 08/31/24 18:00 08/31/24 18:52 08/31/24 18:52 FiO2 25 08/31/24 11:16 Laboratory Results - last 24 hr 08/30/24 18:29: Troponin I 0.08 H 08/30/24 19:04: VBG Lactic Acid 0.9 08/30/24 20:15: Total Bilirubin 1.0 08/30/24 21:40: Troponin I 0.10 H 08/31/24 01:00: VBG pH 7.22 L, VBG pCO2 75.3 H, VBG pO2 61.0 H, VBG HCO3 30.1 H, VBG Total CO2 32.4 H, VBG O2 Saturation 87.9 H, VBG Base Excess 2.4 H, VBG Lactic Acid 1.1 08/31/24 01:40: Urine Color Dark yellow, Urine Appearance Clear, Urine pH 6.0, Ur Specific [place] 1.020, Urine Protein 1+ A, Urine Glucose (UA) Negative, Urine Ketones Trace, Urine Blood Negative, Urine Nitrate Negative, Urine Bilirubin Negative, Urine Urobilinogen >=8.0, Ur Leukocyte Esterase Negative, Urine RBC None, Urine WBC None, Ur Squamous Epith Cells Occasional, Urine Bacteria Trace, Urine Sodium 6.0 L 08/31/24 03:36: VBG pH 7.26 L, VBG pCO2 67.8 H, VBG pO2 38.0, VBG HCO3 29.8, VBG Total CO2 31.9 H, VBG O2 Saturation 68.9, VBG Base Excess 2.8 H, VBG Lactic Acid 1.1 08/31/24 06:44: WBC 9.3 D, RBC 4.24 L, Hgb 12.7 L, Hct 39.7 L, MCV 93.6, MCH 30.0, MCHC 32.0, RDW 13.3, Plt Count 240, MPV 9.5, Neut % (Auto) 94.4 H, Lymph % (Auto) 3.7 L, [place] % (Auto) 1.4 L, Eos % (Auto) 0.0 L, Baso % (Auto) 0.1, Neut # (Auto) 8.8 H, Lymph # (Auto) 0.4 L, [place] # (Auto) 0.1, Eos # (Auto) 0.0, Baso # (Auto) 0.0, Total Counted 100, Neutrophils % (Manual) 96 H, Lymphocytes % (Manual) 3 L, Monocytes % (Manual) 1 L, Platelet Estimate Normal, RBC Morphology Normal, Sodium 124 L, Potassium 5.0, Chloride 88 L, Carbon Dioxide 33 H, Anion Gap 8.0, BUN 22 H D, Creatinine 0.60 L, Estimated Creat Clear 53, Estimated GFR 132, Est GFR ( Amer) 159, Glucose 169 H D, Calcium 8.4, Troponin I 0.13 H, Procalcitonin 0.150 08/31/24 09:40: VBG pH 7.28 L, VBG pCO2 67.8 H, VBG pO2 75.1 H, VBG HCO3 31.1 H, VBG Total CO2 33.2 H, VBG O2 Saturation 93.3 H, VBG Base Excess 4.3 H, VBG Lactic Acid 1.5 08/31/24 12:02: VBG pH 7.45 H, VBG pCO2 42.1, VBG pO2 53.3 H, VBG HCO3 28.8, VBG Total CO2 30.1 H, VBG O2 Saturation 90.7 H, VBG Base Excess 4.9 H, VBG Lactic Acid 1.3 I & O for Last 24 hours: Intake & Output 08/28/24 08/29/24 08/30/24 08/31/24 23:59 23:59 23:59 23:59 Intake Total 948.187 / 948.187 Output Total 200 / 200 1300 / 1300 Balance -200 / -39 -351.813 / -351.813 Weight 58.967 kg 58 kg Microbiology Reports for the Last 24 Hours: Microbiology 08/30/24 17:38 Blood Blood Culture - Preliminary NO GROWTH AFTER 24 HOURS 08/30/24 17:38 Blood Blood Culture - Preliminary NO GROWTH AFTER 24 HOURS Constitutional Constitutional: no acute distress *Routine HEENT Exam Head: Present normocephalic Eye: Present EOMI and PERRL ENT: Present mucous membranes moist *Routine Neck Exam Neck: Present supple; Absent lymphadenopathy *Routine Respiratory Exam Respiratory: Present CTA bilaterally *Routine Cardiovascular Exam Cardiovascular: Present RRR *Routine Abdominal Exam Abdominal: Present soft and normoactive bowel sounds; Absent tenderness *Routine Extremities Exam Extremities: Absent cyanosis, clubbing or edema *Routine Skin Exam Skin: Present warm; Absent rash *Routine Neurological Exam Neurological: Present alert and oriented X3 Assessment and Plan *Assessment and plan (1) HFrEF (heart failure with reduced ejection fraction): Status: Acute Category: Medical Code(s): I50.20 - Unspecified systolic (congestive) heart failure Plan This is a 74-year-old male who has a past medical history significant for exposure to agent orange, bundle branch block, coronary artery disease, chronic hypoxic hypercapnic respiratory failure, hyperlipidemia, hypertension, diastolic dysfunction, hyponatremia, atrial fibrillation, bilateral carotid artery stenosis, and cardiomyopathy who presents with a chief complaint of left-sided chest pain next to the ribs. #Acute on chronic hypoxic respiratory failure #Acute hypercapnic respiratory failure #Community-acquired pneumonia ? Initial and overnight VBG's showing hypercapnic respiratory failure, improved with BiPAP. ? CTA chest revealed bilateral pneumonia. ? WBC normal, no signs of sepsis. ? Continue ceftriaxone, azithromycin pending sputum cultures. ? Follow-up sputum, blood cultures. ? DuoNebs every 4 hours, Solu-Medrol 40 mg twice daily. ? Pulmonology consulted, pending further recommendations. #Chest pain #NSTEMI type II #HFrEF #Severe right heart failure #History of NSTEMI with stent to RCA ? ECHO reveals LVEF 20 to 25%, G2 DD, severe reduction in RV function, moderate AAS, RVSP 50 to 55 mmHg. BNP 8710 troponin 0.13. ? Cardiology consulted, started dobutamine and Levophed for suspected early cardiogenic shock. Believe NSTEMI is type II at this time given underlying pneumonia, respiratory failure. ? Patient had increased productive cough, CXR showing pulmonary edema. Given IV Lasix 40 mg. ? Reevaluate the need for Lasix tomorrow, patient overall appears dry. #Chronic hyponatremia ? Sodium 124. Follow-up serum, urine osmolality. ? Salt tab 1000 mg twice daily. Cautious with heart failure. Full code DVT prophylaxis: 30 mg
--- NOTE | 2024-08-31 19:35 | XR_ITS ---
PROCEDURE INFORMATION: Exam: XR Chest Exam date and time: 08/31/2024 7:39 PM Age: 74 years old Clinical indication: Shortness of breath; Additional info: SOA TECHNIQUE: Imaging protocol: Radiologic exam of the chest. Views: 1 view. COMPARISON: CR XR CHEST PORTABLE 08/31/2024 2:17 AM FINDINGS: Lungs: Improved aeration of the right lung base with minimal residual opacities. Pleural spaces: Unremarkable. No pleural effusion. No pneumothorax. Heart/Mediastinum: Unremarkable. No cardiomegaly. Bones/joints: Unremarkable. IMPRESSION: Improved aeration of the right lung base with minimal residual opacities.
[2024-08-31] MEDS: FUROSEMIDE 40MG/4ML VIAL 40 MG IV (19:50)
[2024-08-31] MEDS: ATORVASTATIN 40MG TABLET 40 MG PO (20:08)
[2024-09-01] VITALS (36 sets, daily range): BP systolic 94–132; BP diastolic 51–99; PULSE 70–125; RESP 12–42; TEMP 36.6–37; O2SAT 78–99; BMI 18.9
[2024-09-01] MEDS: IPRATROPIUM/ALBUTEROL 3 ML NEB IH ×3 (02:10→10:04)
--- NOTE | 2024-09-01 02:13 | PC.NURSE ---
RESP CARE NOTE: Placed pt on bipap around 2200. Pt did complain about bipap for a few minutes but shortly after fell asleep. Pt wanted bipap removed around 0100. Pt at this time states he will never put that machine on again and that it was the worst thing he's ever experienced in his life. Pt currently awake in bed watching tv. 3L NC in place.
[2024-09-01 06:17] LABS: Basophils % 0.1 % (0.1-2.0); Eosinophils % 0.1 % (0.1-12.0); Hematocrit 32.3 % (42.0-52.0); Lymphocytes # 0.6 K/mm3 (0.7-4.5); Lymphocytes % 5.2 % (10-50); Mean Corpuscular HGB Conc 33.1 g/dL (31.8-35.4); Mean Corpuscular Hemoglobin 30.1 pg (27.0-31.2); Mean Platelet Volume 9.5 fl (7.4-10.4); Monocytes # 0.9 K/mm3 (0.1-1.0); Monocytes % 7.6 % (1.7-9.3); Neutrophils # 9.7 K/mm3 (1.8-7.8); Neutrophils % 86.2 % (37.0-80.0); Platelet Count 271 K/mm3 (142-424); Red Blood Count 3.55 M/mm3 (4.60-6.20); Red Cell Distribution Width 12.9 % (11.5-17.5); White Blood Count 11.2 K/mm3 (4.8-10.8)
[2024-09-01 06:38] LABS: Blood Urea Nitrogen 16 mg/dl (9-20); Calcium 8.1 mg/dl (8.4-10.2); Carbon Dioxide 40 mmol/L (22.0-30.0); Chloride 85 mmol/L (98-107); Creatinine Clearance Estimated 55 mL/min (50-200); Estimated Glomerular Filt Rate 210 ml/min (>60); GFR (African American) 254 ML/MIN (>60); Glucose 140 mg/dl (74-100); Sodium 127 mmol/L (136-145)
[2024-09-01 06:49] LABS: Hemoglobin 10.8 g/dL (14.1-18.0)
[2024-09-01 08:00] LABS: VBG HCO3 30.2 mmol/L (23-30); VBG Oxygen Saturation 62.5 % (50-70); VBG PCO2 61.6 mmol/L (35-51); VBG PH 7.31 mmol/L (7.31-7.41); VBG PO2 35.3 mmol/L (28-40); VBG Total CO2 32.1 mmol/L (23-27)
[2024-09-01 08:09] LABS: Lactate Venous 3.3 mmol/L (0.4-2.0)
[2024-09-01] MEDS: ASPIRIN EC 81MG TABLET 81 MG PO (09:02)
[2024-09-01] MEDS: guaiFENesin 600 MG TAB.ER.12H PO ×2 (09:03→20:00)
[2024-09-01] MEDS: AZITHROMYCIN 250MG TABLET 250 MG PO (09:03)
[2024-09-01] MEDS: METHYLPREDNISOLONE SOD SUCC 40MG VIAL 40 MG IV ×2 (09:03→20:01)
[2024-09-01] MEDS: ENOXAPARIN 40MG/0.4ML SYRINGE 40 MG SUBCUT (09:03)
[2024-09-01] MEDS: SODIUM CHLORIDE 1,000MG TABLET 1000 MG PO ×2 (09:03→20:00)
[2024-09-01] MEDS: ONDANSETRON 4MG/2ML VIAL 4 MG IV (09:40)
[2024-09-01 10:02] LABS: Adenovirus,PCR Not Detected (NotDetected); Bordetella Pertussis Not Detected (NotDetected); Chlamydophila Pneumoniae, PCR Not Detected (NotDetected); Coronavirus 19, PCR Not Detected (NotDetected); Coronavirus 229E Not Detected (NotDetected); Coronavirus NL63 Not Detected (NotDetected); Coronavirus OC43 Not Detected (NotDetected); Coronovirus HKU1,PCR Not Detected (NotDetected); Human Metapneumovirus Not Detected (NotDetected); Influenza A, PCR Not Detected (NotDetected); Influenza AH1, 2009 Not Detected (NotDetected); Influenza AH1, PCR Not Detected (NotDetected); Influenza AH3,PCR Not Detected (NotDetected); Influenza B, PCR Not Detected (NotDetected); Mycoplasma Pneumoniae, PCR Not Detected (NotDetected); Parainfluenza 1, PCR Not Detected (NotDetected); Parainfluenza 2, PCR Not Detected (NotDetected); Parainfluenza 3, PCR Not Detected (NotDetected); Parainfluenza 4, PCR Not Detected (NotDetected); Respiratory Syncytial Virus Not Detected (NotDetected); Rhinovirus/Enterovirus Not Detected (NotDetected)
--- NOTE | 2024-09-01 10:08 | EXP.PULM.PN ---
Subjective *Date: 09/01/24 *Time: 13:47 Interval history: No acute respiratory vents overnight. Patient admits significant improvement in his respiratory symptoms. Pulmonology Exam Inpatient Vital signs and Labs for Last 24 Hours: Temp Pulse Resp BP Pulse Ox O2 Del Method O2 Flow Rate 97.8 F 95 H 22 97/55 L 98 Nasal Cannula 2 09/01/24 03:30 09/01/24 10:05 09/01/24 07:00 09/01/24 07:00 09/01/24 08:00 09/01/24 08:00 09/01/24 08:00 FiO2 25 08/31/24 22:06 Laboratory Results - last 24 hr 08/31/24 12:02: VBG pH 7.45 H, VBG pCO2 42.1, VBG pO2 53.3 H, VBG HCO3 28.8, VBG Total CO2 30.1 H, VBG O2 Saturation 90.7 H, VBG Base Excess 4.9 H, VBG Lactic Acid 1.3 09/01/24 05:39: WBC 11.2 H, RBC 3.55 L, Hgb 10.8 L D, Hct 32.3 L, MCV 91.0, MCH 30.1, MCHC 33.1, RDW 12.9, Plt Count 271, MPV 9.5, Neut % (Auto) 86.2 H, Lymph % (Auto) 5.2 L, [place] % (Auto) 7.6, Eos % (Auto) 0.1, Baso % (Auto) 0.1, Neut # (Auto) 9.7 H, Lymph # (Auto) 0.6 L, [place] # (Auto) 0.9, Eos # (Auto) 0.0, Baso # (Auto) 0.0, Sodium 127 L, Potassium 4.0, Chloride 85 L, Carbon Dioxide 40 H, Anion Gap 6.0, BUN 16 D, Creatinine 0.40 L D, Estimated Creat Clear 55, Estimated GFR 210, Est GFR ( Amer) 254 D, Glucose 140 H, Calcium 8.1 L 09/01/24 07:40: VBG pH 7.31, VBG pCO2 61.6 H, VBG pO2 35.3, VBG HCO3 30.2 H, VBG Total CO2 32.1 H, VBG O2 Saturation 62.5, VBG Base Excess 4.0 H, VBG Lactic Acid 3.3 H Temp Pulse Resp BP Pulse Ox O2 Del Method O2 Flow Rate 99.1 F 98 H 26 H 107/49 L 86 L Nasal Cannula 2 08/31/24 14:30 08/31/24 14:30 08/31/24 14:30 08/31/24 14:30 08/31/24 14:30 08/31/24 14:16 08/31/24 14:16 FiO2 25 08/31/24 11:16 Laboratory Results - last 24 hr 08/30/24 15:06: WBC 14.9 H, RBC 4.34 L, Hgb 13.1 L, Hct 39.5 L, MCV 91.0, MCH 30.2, MCHC 33.2, RDW 13.1, Plt Count 244, MPV 9.6, Neut % (Auto) 86.4 H, Lymph % (Auto) 5.9 L, [place] % (Auto) 6.9, Eos % (Auto) 0.1, Baso % (Auto) 0.3, Neut # (Auto) 12.9 H, Lymph # (Auto) 0.9, [place] # (Auto) 1.0, Eos # (Auto) 0.0, Baso # (Auto) 0.0, Sodium 125 L, Potassium 4.8, Chloride 83 L, Carbon Dioxide 34 H, Anion Gap 12.8, BUN 16, Creatinine 0.50 L, Estimated Creat Clear 54, Estimated GFR 163, Est GFR ( Amer) 197, Glucose 137 H, Calcium 8.9, Total Bilirubin 1.5 H, AST 28, ALT 23, Alkaline Phosphatase 66, Troponin I 0.09 H, NT-Pro-B Natriuret Pep 8710 H, Total Protein 7.0, Albumin 4.0, Globulin 3.0, Albumin/Globulin Ratio 1.3 08/30/24 15:16: VBG pH 7.29 L, VBG pCO2 56.4 H, VBG pO2 35.0, VBG HCO3 26.5, VBG Total CO2 28.2 H, VBG O2 Saturation 64.1, VBG Base Excess -0.1, VBG Lactic Acid 1.8 08/30/24 17:27: SARS-CoV-2 (PCR) Not detected, Influenza A Untype (PCR) Not detected, Influenza Type B (PCR) Not detected 08/30/24 18:29: Troponin I 0.08 H 08/30/24 19:04: VBG Lactic Acid 0.9 08/30/24 20:15: Total Bilirubin 1.0 08/30/24 21:40: Troponin I 0.10 H 08/31/24 01:00: VBG pH 7.22 L, VBG pCO2 75.3 H, VBG pO2 61.0 H, VBG HCO3 30.1 H, VBG Total CO2 32.4 H, VBG O2 Saturation 87.9 H, VBG Base Excess 2.4 H, VBG Lactic Acid 1.1 08/31/24 01:40: Urine Color Dark yellow, Urine Appearance Clear, Urine pH 6.0, Ur Specific [place] 1.020, Urine Protein 1+ A, Urine Glucose (UA) Negative, Urine Ketones Trace, Urine Blood Negative, Urine Nitrate Negative, Urine Bilirubin Negative, Urine Urobilinogen >=8.0, Ur Leukocyte Esterase Negative, Urine RBC None, Urine WBC None, Ur Squamous Epith Cells Occasional, Urine Bacteria Trace, Urine Sodium 6.0 L 08/31/24 03:36: VBG pH 7.26 L, VBG pCO2 67.8 H, VBG pO2 38.0, VBG HCO3 29.8, VBG Total CO2 31.9 H, VBG O2 Saturation 68.9, VBG Base Excess 2.8 H, VBG Lactic Acid 1.1 08/31/24 06:44: WBC 9.3 D, RBC 4.24 L, Hgb 12.7 L, Hct 39.7 L, MCV 93.6, MCH 30.0, MCHC 32.0, RDW 13.3, Plt Count 240, MPV 9.5, Neut % (Auto) 94.4 H, Lymph % (Auto) 3.7 L, [place] % (Auto) 1.4 L, Eos % (Auto) 0.0 L, Baso % (Auto) 0.1, Neut # (Auto) 8.8 H, Lymph # (Auto) 0.4 L, [place] # (Auto) 0.1, Eos # (Auto) 0.0, Baso # (Auto) 0.0, Total Counted 100, Neutrophils % (Manual) 96 H, Lymphocytes % (Manual) 3 L, Monocytes % (Manual) 1 L, Platelet Estimate Normal, RBC Morphology Normal, Sodium 124 L, Potassium 5.0, Chloride 88 L, Carbon Dioxide 33 H, Anion Gap 8.0, BUN 22 H D, Creatinine 0.60 L, Estimated Creat Clear 53, Estimated GFR 132, Est GFR ( Amer) 159, Glucose 169 H D, Calcium 8.4, Troponin I 0.13 H, Procalcitonin 0.150 08/31/24 09:40: VBG pH 7.28 L, VBG pCO2 67.8 H, VBG pO2 75.1 H, VBG HCO3 31.1 H, VBG Total CO2 33.2 H, VBG O2 Saturation 93.3 H, VBG Base Excess 4.3 H, VBG Lactic Acid 1.5 08/31/24 12:02: VBG pH 7.45 H, VBG pCO2 42.1, VBG pO2 53.3 H, VBG HCO3 28.8, VBG Total CO2 30.1 H, VBG O2 Saturation 90.7 H, VBG Base Excess 4.9 H, VBG Lactic Acid 1.3 I & O for Labs for Last 24 Hours: Intake & Output 08/29/24 08/30/24 08/31/24 09/01/24 23:59 23:59 23:59 23:59 Intake Total 1290.600 / 1290.600 72.5 / 72.5 Output Total 200 / 200 2200 / 2200 1375 / 1375 Balance -200 / -39 -909.400 / -909.400 -1302.5 / -1302.5 Weight 130 lb 127 lb 13.89 oz 132 lb 4.438 oz Intake & Output 08/28/24 08/29/24 08/30/24 08/31/24 23:59 23:59 23:59 23:59 Intake Total 528.187 / 528.187 Output Total 200 / 200 800 / 800 Balance -200 / -39 -271.813 / -271.813 Weight 130 lb 127 lb 13.89 oz Microbiology Reports for the Last 24 Hours: Microbiology 08/31/24 20:30 Sputum - Expectorated Sputum Gram Stain - Final 08/30/24 17:38 Blood Blood Culture - Preliminary NO GROWTH AFTER 24 HOURS 08/30/24 17:38 Blood Blood Culture - Preliminary NO GROWTH AFTER 24 HOURS Constitutional: Present mild distress Head: Present normocephalic and atraumatic ENT: Present normal exam, normal oropharynx and mucous membranes moist Neck: Present normal inspection and full ROM Respiratory: Present respiratory distress, diminished air movement and able to speak in complete sentences; Absent rhonchi or wheezes Cardiac: Present S1/S2, Tachycardia and radial pulses present GI: Present soft and distention; Absent tenderness or guarding Skin: Present intact; Absent cyanosis or jaundice Neuro: Present alert, awake and oriented x 3 Comment:: Arousable to verbal stimuli Extremities: Present normal inspection; Absent clubbing or cyanosis Psychiatric: Present normal affect and cooperative Assessment and Plan *Assessment and plan (1) Acute on chronic respiratory failure with hypoxia and hypercapnia: Status: Acute Category: Medical Code(s): J96.21 - Acute and chronic respiratory failure with hypoxia; J96.22 - Acute and chronic respiratory failure with hypercapnia (2) Fibrosis of lung: Status: Acute Category: Medical Code(s): J84.10 - Pulmonary fibrosis, unspecified (3) Pulmonary emphysema: Status: Acute Category: Medical Code(s): J43.9 - Emphysema, unspecified (4) Pneumonia: Status: Acute Qualifiers: Laterality: bilateral Lung location: lower lobe of lung Pneumonia type: due to unspecified organism Qualified Code(s): J18.9 - Pneumonia, unspecified organism Category: Medical Code(s): J18.9 - Pneumonia, unspecified organism Plan Mr. Mosher is a 74-year-old male with a prior history of agent orange exposure CAD, chronic hypoxic respiratory failure presented to the ER with worsening respiratory distress and his initial blood gas showed hypercarbic respiratory failure needing noninvasive ventilatory support and pulmonary was called for further evaluation and management. Not using any inhalers at baseline. Admits using 3 L nasal cannula oxygen supplementation CT chest bilateral subpleural interstitial changes along with patchy airspace disease. Paraseptal emphysematous changes also noted. Neutrophilic predominant leukocytosis upon admission, improving. COVID-19 and flu PCR panel negative. Admission ABG hypercarbic respiratory failure with a pH of 7.22 and pCO2 75.3. BiPAP settings changes morning and follow-up ABG showed significant improvement in the noted hypercarbic respiratory failure with a pH now at 7.45 and pCO2 42.1 Initial examination auscultation bilateral rhonchorous breath sounds and diffuse wheezing. Interval update: Improvement in hypercarbic respiratory failure after noninvasive ventilator therapy. Has been on BiPAP overnight. Slight worsening leukocytosis. Improving oxygen requirements. Blood gas from this morning showed slight worsening hypercarbic respiratory failure morning with a pH of 7.31 and pCO2 61.6 Significant improvement in mentation, A and O x 3 this morning Plan: Advair 250 inhaler along with DuoNebs 4 times daily. Continue oxygen supplementation to maintain O2 saturation of 90 to 95%. Wean as tolerated. No need for noninvasive ventilatory therapy tonight Continue ceftriaxone azithromycin pending blood and sputum culture results. Antibiotics can be weaned to levofloxacin to complete a total 5-day course upon discharge Wean prednisone to 40 mg daily x 5 days # Thank you for involving pulmonary in this patient. Will follow the patient in pulmonary clinic 2 to 4 weeks post discharge
[2024-09-01 12:08] LABS: Reflex Lactic Add Lactic Reflex
--- NOTE | 2024-09-01 12:10 | EXP.CARD.PN ---
Subjective Subjective Date: 09/01/24 Time: 12:10 Principal diagnosis: HFrEF, cardiomyopathy Interval history: 74-year-old white male in bed in no acute distress. Alert and talkative today. Patient continues on dobutamine Patient has diuresed over 2 L overnight. Exam Data for Last 24 hours Vital signs and Labs for Last 24 Hours: Temp Pulse Resp BP Pulse Ox O2 Del Method O2 Flow Rate 97.8 F 95 H 22 97/55 L 98 Nasal Cannula 2 09/01/24 03:30 09/01/24 10:05 09/01/24 07:00 09/01/24 07:00 09/01/24 08:00 09/01/24 11:00 09/01/24 11:00 FiO2 25 08/31/24 22:06 Laboratory Results - last 24 hr 08/31/24 12:02: VBG pH 7.45 H, VBG pCO2 42.1, VBG pO2 53.3 H, VBG HCO3 28.8, VBG Total CO2 30.1 H, VBG O2 Saturation 90.7 H, VBG Base Excess 4.9 H, VBG Lactic Acid 1.3 09/01/24 05:39: WBC 11.2 H, RBC 3.55 L, Hgb 10.8 L D, Hct 32.3 L, MCV 91.0, MCH 30.1, MCHC 33.1, RDW 12.9, Plt Count 271, MPV 9.5, Neut % (Auto) 86.2 H, Lymph % (Auto) 5.2 L, [place] % (Auto) 7.6, Eos % (Auto) 0.1, Baso % (Auto) 0.1, Neut # (Auto) 9.7 H, Lymph # (Auto) 0.6 L, [place] # (Auto) 0.9, Eos # (Auto) 0.0, Baso # (Auto) 0.0, Sodium 127 L, Potassium 4.0, Chloride 85 L, Carbon Dioxide 40 H, Anion Gap 6.0, BUN 16 D, Creatinine 0.40 L D, Estimated Creat Clear 55, Estimated GFR 210, Est GFR ( Amer) 254 D, Glucose 140 H, Calcium 8.1 L 09/01/24 07:40: VBG pH 7.31, VBG pCO2 61.6 H, VBG pO2 35.3, VBG HCO3 30.2 H, VBG Total CO2 32.1 H, VBG O2 Saturation 62.5, VBG Base Excess 4.0 H, VBG Lactic Acid 3.3 H I & O for Last 24 hours: Intake & Output 08/30/24 08/31/24 09/01/24 09/02/24 11:59 11:59 11:59 11:59 Intake Total 521 / 521 842.100 / 842.100 Output Total 750 / 750 3025 / 3025 Balance -229 / -229 -2182.900 / -2182.900 Weight 127 lb 13.89 oz 132 lb 4.438 oz Microbiology Reports for the Last 24 Hours: Microbiology 08/31/24 20:30 Sputum - Expectorated Sputum Gram Stain - Final 08/30/24 17:38 Blood Blood Culture - Preliminary NO GROWTH AFTER 24 HOURS 08/30/24 17:38 Blood Blood Culture - Preliminary NO GROWTH AFTER 24 HOURS Constitutional Constitutional: no acute distress *Routine Respiratory Exam Respiratory: Present decreased breath sounds; Absent wheezes *Routine Cardiovascular Exam Cardiovascular: Present RRR Progress Note: A&P Assessment and plan (1) Acute on chronic respiratory failure with hypoxia and hypercapnia: Status: Acute (2) Fibrosis of lung: Status: Acute (3) Pulmonary emphysema: Status: Acute (4) Pneumonia: Status: Acute Assessment and Plan Assessment and Plan for All Diagnoses:: 1. Bilateral lower lobe pneumonia with sepsis/hypoxic and hypercapnic respiratory failure -On ceftriaxone, azithromycin, methylprednisolone -Pulmonary following -Procalcitonin 0.15 2. Mildly Elevated troponins with new cardiomyopathy on echo this admission consistent with HFrEF -Unclear if this is new or acute on chronic (last echo at [facility] was 2020 with EF 55%). Transfered care to [facility] since 2022. -Minimize/cautious use of fluids -BNP 8710 -On dobutamine and levophed 3. Hyponatremia -127 today 4. Known CAD -prior [place] with RCA stenting in 2020 5. Chronic lung disease with history of agent orange exposure Continue dobutamine and Levophed for blood pressure support and to help with auto diuresis Will give one-time dose of Lasix today Anticipate patient will be here over the weekend with plans for cardiac catheterization early next week
[2024-09-01] MEDS: CEFTRIAXONE SODIUM 1 GM in 0.9 % SODIUM CHLORIDE 50 ML IV (12:57)
[2024-09-01] MEDS: FUROSEMIDE 40 MG TABLET PO (12:58)
[2024-09-01 14:21] LABS: Reflex Lactic (2 hrs) Add Lactic Reflex
[2024-09-01] MEDS: NOREPINEPHRINE BITARTRATE/D5W 8 MG/250 ML PLAST..BAG 3.75 MG IV (15:29)
[2024-09-01] MEDS: DOBUTAMINE HCL/D5W 250 ML 2.5 MG IV (15:29)
[2024-09-01 15:33] LABS: Lactic Acid Follow up (RFLX 2) 2.5 mmol/L (0.7-2.1)
--- NOTE | 2024-09-01 16:52 | PC.NURSE ---
THIS SRNA ASKED pt IF HE WANTED TO GET UP TO CHAIR @1200 & 1400. pt REFUSED BOTH TIMES TO THIS SRNA & ASSIGNED RN. WILL TRY AGAIN FOR DINNER. pt DID GOOD AMBULATING TO AND FROM BATHROOM VIA WALKER AND STANDBY ASSIST. pt IS BACK IN BED WITH FAMILY AT . CALL LIGHT IS WITHIN REACH AND NO NEEDS WERE VOICED AT THIS TIME. pt IS ON ROOM AIR AT THIS TIME WITH O2 SAT @ 90 % AT REST.
--- NOTE | 2024-09-01 17:34 | P.PN_ITS ---
Subjective *Date: 09/01/24 *Time: 17:34 Interval history: Patient states he is doing well this morning, no acute concerns. Received intermittently BiPAP overnight. Will trial off tonight, repeat VBG in the morning Exam Data for Last 24 hours Vital signs and Labs for Last 24 Hours: Temp Pulse Resp BP Pulse Ox O2 Del Method O2 Flow Rate 98.2 F 112 H 20 110/64 90 L Room Air 2 09/01/24 16:00 09/01/24 17:00 09/01/24 17:00 09/01/24 17:00 09/01/24 17:00 09/01/24 17:00 09/01/24 13:00 FiO2 08/31/24 22:06 Laboratory Results - last 24 hr 09/01/24 05:39: WBC 11.2 H, RBC 3.55 L, Hgb 10.8 L D, Hct 32.3 L, MCV 91.0, MCH 30.1, MCHC 33.1, RDW 12.9, Plt Count 271, MPV 9.5, Neut % (Auto) 86.2 H, Lymph % (Auto) 5.2 L, [place] % (Auto) 7.6, Eos % (Auto) 0.1, Baso % (Auto) 0.1, Neut # (Auto) 9.7 H, Lymph # (Auto) 0.6 L, [place] # (Auto) 0.9, Eos # (Auto) 0.0, Baso # (Auto) 0.0, Sodium 127 L, Potassium 4.0, Chloride 85 L, Carbon Dioxide 40 H, Anion Gap 6.0, BUN 16 D, Creatinine 0.40 L D, Estimated Creat Clear 55, Estimated GFR 210, Est GFR ( Amer) 254 D, Glucose 140 H, Calcium 8.1 L 09/01/24 07:40: VBG pH 7.31, VBG pCO2 61.6 H, VBG pO2 35.3, VBG HCO3 30.2 H, VBG Total CO2 32.1 H, VBG O2 Saturation 62.5, VBG Base Excess 4.0 H, VBG Lactic Acid 3.3 H 09/01/24 09:56: Chlamy pneumoniae PCR Not detected, Adenovirus (PCR) Not detected, B. pertussis DNA (PCR) Not detected, Coronavirus OC43 (PCR) Not detected, Coronavirus HKU1 (PCR) Not detected, Coronavirus 229E (PCR) Not detected, SARS-CoV-2 (PCR) Not detected, Coronavirus NL63 (PCR) Not detected, Human Metapneumovir PCR Not detected, Influenza A (H1) PCR Not detected, Influ A (H1N1/09) PCR Not detected, Influenza A (H3) PCR Not detected, Influenza Type A (PCR) Not detected, Influenza Type B (PCR) Not detected, M. pneumoniae (PCR) Not detected, Parainfluenza 1 (PCR) Not detected, Parainfluenza 2 (PCR) Not detected, Parainfluenza 3 (PCR) Not detected, Parainfluenza 4 (PCR) Not detected, RSV (PCR) Not detected, Entero/Rhino (PCR) Not detected 09/01/24 12:19: Lactate 3.0 H 09/01/24 14:35: Lactate 2.5 H I & O for Last 24 hours: Intake & Output 08/29/24 08/30/24 08/31/24 09/01/24 23:59 23:59 23:59 23:59 Intake Total 1290.600 / 1290.600 903.792 / 903.792 Output Total 200 / 200 2200 / 2200 2925 / 2925 Balance -200 / -39 -909.400 / -909.400 -2021.208 / -2021.208 Weight 58.967 kg 58 kg 60 kg Microbiology Reports for the Last 24 Hours: Microbiology 08/31/24 20:30 Sputum - Expectorated Sputum Gram Stain - Final 08/30/24 17:38 Blood Blood Culture - Preliminary NO GROWTH AFTER 24 HOURS 08/30/24 17:38 Blood Blood Culture - Preliminary NO GROWTH AFTER 24 HOURS Constitutional Constitutional: no acute distress *Routine HEENT Exam Head: Present normocephalic Eye: Present EOMI and PERRL ENT: Present mucous membranes moist *Routine Neck Exam Neck: Present supple; Absent lymphadenopathy *Routine Respiratory Exam Respiratory: Present CTA bilaterally *Routine Cardiovascular Exam Cardiovascular: Present RRR *Routine Abdominal Exam Abdominal: Present soft and normoactive bowel sounds; Absent tenderness *Routine Extremities Exam Extremities: Absent cyanosis, clubbing or edema *Routine Skin Exam Skin: Present warm; Absent rash *Routine Neurological Exam Neurological: Present alert and oriented X3 Assessment and Plan *Assessment and plan (1) HFrEF (heart failure with reduced ejection fraction): Status: Acute Category: Medical Code(s): I50.20 - Unspecified systolic (congestive) heart failure Plan This is a 74-year-old male who has a past medical history significant for exposure to agent orange, bundle branch block, coronary artery disease, chronic hypoxic hypercapnic respiratory failure, hyperlipidemia, hypertension, diastolic dysfunction, hyponatremia, atrial fibrillation, bilateral carotid artery stenosis, and cardiomyopathy who presents with a chief complaint of left- sided chest pain next to the ribs. #Acute on chronic hypoxic respiratory failure #Acute hypercapnic respiratory failure #Community-acquired pneumonia ? Initial and overnight VBG's showing hypercapnic respiratory failure, improved with BiPAP. ? CTA chest revealed bilateral pneumonia. ? WBC normal, no signs of sepsis. ? Continue ceftriaxone, azithromycin pending sputum cultures. ? Follow-up sputum, blood cultures. ? DuoNebs every 4 hours, Solu-Medrol 40 mg twice daily. ? Pulmonology consulted, started Advair 250. Recommended trialing off BiPAP tonight. #Chest pain #NSTEMI type II #HFrEF #Severe right heart failure #History of NSTEMI with stent to RCA ? ECHO reveals LVEF 20 to 25%, G2 DD, severe reduction in RV function, moderate AAS, RVSP 50 to 55 mmHg. BNP 8710 troponin 0.13. ? Cardiology consulted, recommended continuing dobutamine and Levophed for suspected early cardiogenic shock. Believe NSTEMI is type II at this time given underlying pneumonia, respiratory failure. ? Patient had increased productive cough, CXR showing pulmonary edema. Given IV Lasix 40 mg. ? Cardiology planning for [facility] next week. #Chronic hyponatremia ? Sodium 124. Follow-up serum, urine osmolality. ? Salt tab 1000 mg twice daily. Cautious with heart failure. Full code DVT prophylaxis: 30 mg
--- NOTE | 2024-09-01 17:44 | ECG_ITS ---
APPROVED REPORT Exam: Resting ECG HR:114 bpm ECG Measurements Heart Rate 114 AXES RI 158 P 79 QRSd 142 QRS -17 QT 352 T 87 QTc 420 Conclusion SINUS TACHYCARDIA WITH OCCASIONAL SUPRAVENTRICULAR PREMATURE COMPLEXES LEFT BUNDLE BRANCH BLOCK [120+ ms QRS DURATION, 80+ ms Q/S IN V1/V2, 85+ ms R IN I/aVL/V5/V6] ABNORMAL ECG UNCONFIRMED REPORT Electronically signed by : Yfn Sandhu MD 09/02/2024 13:27:49
[2024-09-01] MEDS: METOPROLOL SUCCINATE XL 25MG TABLET 25 MG PO (18:25)
--- NOTE | 2024-09-01 18:54 | PC.NURSE ---
pt REFUSED TO GET UP TO CHAIR FOR SUPPER. CALL LIGHT IS WITHIN REACH AND NO NEEDS WERE VOICED AT THIS TIME.
[2024-09-01] MEDS: FLUTICASONE/SALMETEROL 250/50MCG DISKUS 1 PUFF IH (18:56)
[2024-09-01] MEDS: ATORVASTATIN 40MG TABLET 40 MG PO (20:00)
[2024-09-02] VITALS (29 sets, daily range): BP systolic 97–141; BP diastolic 50–86; PULSE 61–120; RESP 12–26; TEMP 36.5–37.5; O2SAT 90–100; BMI 18.8
[2024-09-02] MEDS: IPRATROPIUM/ALBUTEROL 3 ML NEB IH (05:30)
[2024-09-02] MEDS: FLUTICASONE/SALMETEROL 250/50MCG DISKUS 1 PUFF IH ×2 (05:57→18:22)
[2024-09-02 07:27] LABS: VBG Base Excess 9.4 mmol/L (-2.4-2.3); VBG Oxygen Saturation 59.2 % (50-70); VBG PCO2 64.5 mmol/L (35-51); VBG PH 7.35 mmol/L (7.31-7.41); VBG PO2 32.3 mmol/L (28-40)
[2024-09-02 07:31] LABS: Lactate Venous 3.5 mmol/L (0.4-2.0)
[2024-09-02 08:19] LABS: Basophils % 0.1 % (0.1-2.0); Hematocrit 35.2 % (42.0-52.0); Hemoglobin 11.3 g/dL (14.1-18.0); Lymphocytes # 0.8 K/mm3 (0.7-4.5); Lymphocytes % 9.5 % (10-50); Mean Corpuscular HGB Conc 32.1 g/dL (31.8-35.4); Mean Corpuscular Volume 93.4 fl (80-94); Mean Platelet Volume 9.3 fl (7.4-10.4); Monocytes # 0.5 K/mm3 (0.1-1.0); Monocytes % 5.7 % (1.7-9.3); Neutrophils # 7.2 K/mm3 (1.8-7.8); Neutrophils % 84.2 % (37.0-80.0); Platelet Count 325 K/mm3 (142-424); Red Blood Count 3.77 M/mm3 (4.60-6.20); Red Cell Distribution Width 13.2 % (11.5-17.5); White Blood Count 8.5 K/mm3 (4.8-10.8)
[2024-09-02] MEDS: guaiFENesin 600 MG TAB.ER.12H PO ×2 (08:46→20:28)
[2024-09-02] MEDS: ASPIRIN EC 81MG TABLET 81 MG PO (08:46)
[2024-09-02] MEDS: SODIUM CHLORIDE 1,000MG TABLET 1000 MG PO ×2 (08:46→20:28)
[2024-09-02] MEDS: AZITHROMYCIN 250MG TABLET 250 MG PO (08:46)
[2024-09-02] MEDS: ENOXAPARIN 40MG/0.4ML SYRINGE 40 MG SUBCUT (08:46)
[2024-09-02] MEDS: METOPROLOL SUCCINATE XL 25MG TABLET 25 MG PO (08:47)
[2024-09-02] MEDS: METHYLPREDNISOLONE SOD SUCC 40MG VIAL 40 MG IV ×2 (08:47→20:28)
[2024-09-02 08:48] LABS: Blood Urea Nitrogen 14 mg/dl (9-20); Calcium 8.2 mg/dl (8.4-10.2); Chloride 82 mmol/L (98-107); Creatinine Clearance Estimated 55 mL/min (50-200); Estimated Glomerular Filt Rate 163 ml/min (>60); GFR (African American) 197 ML/MIN (>60); Glucose 149 mg/dl (74-100); Potassium 4.3 mmoL/L (3.5-5.1); Sodium 126 mmol/L (136-145)
[2024-09-02 08:56] LABS: Anion Gap 10.3 mEq/L (5-15); Carbon Dioxide 38 mmol/L (22.0-30.0)
[2024-09-02 09:41] LABS: Magnesium 1.5 mg/dl (1.6-2.3)
[2024-09-02] MEDS: MAGNESIUM SULFATE IN WATER 2 GM/50 ML PIGGYBACK IV ×2 (09:55→11:01)
[2024-09-02 10:39] LABS: NT Pro Brain Natriuretic Pep. 24300 pg/mL (0-125)
[2024-09-02] MEDS: FUROSEMIDE 40MG/4ML VIAL 40 MG IV (11:01)
[2024-09-02 11:32] LABS: Reflex Lactic Add Lactic Reflex
[2024-09-02] MEDS: CEFTRIAXONE SODIUM 1 GM in 0.9 % SODIUM CHLORIDE 50 ML IV (13:42)
[2024-09-02] MEDS: DOBUTAMINE HCL/D5W 250 ML 2.5 MG IV (14:21)
[2024-09-02] MEDS: NOREPINEPHRINE BITARTRATE/D5W 8 MG/250 ML PLAST..BAG 3.75 MG IV (14:21)
--- NOTE | 2024-09-02 16:27 | PC.NURSE ---
No acute events this shift. Pt remains on Norepi @ 2mcg/min & Dobutamine @ 1.44 mcg/kg/min per Cards orders. Pt given 40 mg IV Lasix this shift and has diuresed well this shift. Up to chair w/ assistance of staff, tolerated well. Received bath and linen change. Call trinh w/in reach. POC ongoing.
[2024-09-02] MEDS: ATORVASTATIN 40MG TABLET 40 MG PO (20:28)
--- NOTE | 2024-09-02 21:18 | P.PN_ITS ---
Subjective *Date: 09/02/24 *Time: 21:18 Interval history: Patient doing well today, no acute concerns. He is continue to have intermittent spells of coughing, hypoxia requiring oxygen. Started IV Lasix 40 mg. Exam Data for Last 24 hours Vital signs and Labs for Last 24 Hours: Temp Pulse Resp BP Pulse Ox O2 Del Method O2 Flow Rate 98.5 F 84 20 112/71 98 Nasal Cannula 2 09/02/24 20:00 09/02/24 21:00 09/02/24 21:00 09/02/24 21:00 09/02/24 21:00 09/02/24 21:00 09/02/24 21:00 FiO2 08/31/24 22:06 Laboratory Results - last 24 hr 09/02/24 06:00: VBG pH 7.35, VBG pCO2 64.5 H, VBG pO2 32.3, VBG HCO3 35.0 H, VBG Total CO2 37.0 H, VBG O2 Saturation 59.2, VBG Base Excess 9.4 H, VBG Lactic Acid 3.5 H 09/02/24 07:17: WBC 8.5, RBC 3.77 L, Hgb 11.3 L, Hct 35.2 L, MCV 93.4, MCH 30.0, MCHC 32.1, RDW 13.2, Plt Count 325, MPV 9.3, Neut % (Auto) 84.2 H, Lymph % (Auto) 9.5 L, [place] % (Auto) 5.7, Eos % (Auto) 0.0 L, Baso % (Auto) 0.1, Neut # (Auto) 7.2, Lymph # (Auto) 0.8, [place] # (Auto) 0.5, Eos # (Auto) 0.0, Baso # (Auto) 0.0, Sodium 126 L, Potassium 4.3, Chloride 82 L, Carbon Dioxide 38 H, Anion Gap 10.3, BUN 14, Creatinine 0.50 L D, Estimated Creat Clear 55, Estimated GFR 163, Est GFR ( Amer) 197 D, Glucose 149 H, Calcium 8.2 L, Magnesium 1.5 L 09/02/24 12:11: Lactate 2.0 09/02/24 : NT-Pro-B Natriuret Pep 89537 H I & O for Last 24 hours: Intake & Output 08/30/24 08/31/24 09/01/24 09/02/24 23:59 23:59 23:59 23:59 Intake Total 1290.600 / 4411.617 6431.792 / 7796.166 2497.918 / 1162.918 Output Total 200 / 200 2200 / 2200 3125 / 3325 4300 / 4300 Balance -200 / -39 -909.400 / -909.400 -1886.208 / -2086.208 -3137.082 / - 3137.082 Weight 58.967 kg 58 kg 60 kg 59.874 kg Microbiology Reports for the Last 24 Hours: Microbiology 08/31/24 20:30 Sputum - Expectorated Sputum Gram Stain - Final 08/31/24 20:30 Sputum - Expectorated Sputum Sputum Culture - Preliminary 08/30/24 17:38 Blood Blood Culture - Preliminary NO GROWTH AFTER 48 HOURS 08/30/24 17:38 Blood Blood Culture - Preliminary NO GROWTH AFTER 48 HOURS Constitutional Constitutional: no acute distress *Routine HEENT Exam Head: Present normocephalic Eye: Present EOMI and PERRL ENT: Present mucous membranes moist *Routine Neck Exam Neck: Present supple; Absent lymphadenopathy *Routine Respiratory Exam Respiratory: Present CTA bilaterally *Routine Cardiovascular Exam Cardiovascular: Present RRR *Routine Abdominal Exam Abdominal: Present soft and normoactive bowel sounds; Absent tenderness *Routine Extremities Exam Extremities: Absent cyanosis, clubbing or edema *Routine Skin Exam Skin: Present warm; Absent rash *Routine Neurological Exam Neurological: Present alert and oriented X3 Assessment and Plan *Assessment and plan (1) HFrEF (heart failure with reduced ejection fraction): Status: Acute Category: Medical Code(s): I50.20 - Unspecified systolic (congestive) heart failure Plan This is a 74-year-old male who has a past medical history significant for exposure to agent orange, bundle branch block, coronary artery disease, chronic hypoxic hypercapnic respiratory failure, hyperlipidemia, hypertension, diastolic dysfunction, hyponatremia, atrial fibrillation, bilateral carotid artery stenosis, and cardiomyopathy who presents with a chief complaint of left- sided chest pain next to the ribs. #Acute on chronic hypoxic respiratory failure #Acute hypercapnic respiratory failure #Community-acquired pneumonia ? Initial and overnight VBG's showing hypercapnic respiratory failure, improved with BiPAP. ? CTA chest revealed bilateral pneumonia. ? WBC normal, no signs of sepsis. ? Continue ceftriaxone, azithromycin pending sputum cultures. ? Follow-up sputum, blood cultures. ? DuoNebs every 4 hours, Solu-Medrol 40 mg twice daily. ? Pulmonology consulted, started Advair 250. Recommended trialing off BiPAP tonight. #Chest pain #NSTEMI type II #HFrEF #Severe right heart failure #History of NSTEMI with stent to RCA ? ECHO reveals LVEF 20 to 25%, G2 DD, severe reduction in RV function, moderate AAS, RVSP 50 to 55 mmHg. BNP 8710 troponin 0.13. ? Cardiology consulted, recommended continuing dobutamine and Levophed for suspected early cardiogenic shock. Believe NSTEMI is type II at this time given underlying pneumonia, respiratory failure. ? Started IV Lasix 40 mg daily given uptrending BNP, intermittent hypoxia. BNP 24,000, initial 8000. ? Cardiology planning for [facility] next week. #Chronic hyponatremia ? Sodium 124 to 126. Follow-up serum, urine osmolality. ? Salt tab 1000 mg twice daily. Cautious with heart failure. Full code DVT prophylaxis: 30 mg
[2024-09-03] VITALS (26 sets, daily range): BP systolic 90–155; BP diastolic 54–97; PULSE 62–90; RESP 10–29; TEMP 36.6–36.9; O2SAT 69–100; BMI 18.5
[2024-09-03] MEDS: IPRATROPIUM/ALBUTEROL 3 ML NEB IH (02:47)
--- NOTE | 2024-09-03 07:06 | ECG_ITS ---
APPROVED REPORT Exam: Resting ECG HR:83 bpm ECG Measurements Heart Rate 83 AXES MS 167 P 67 QRSd 148 QRS 46 QT 420 T -38 QTc 460 Conclusion SINUS RHYTHM WITH SINUS ARRHYTHMIA INTRAVENTRICULAR CONDUCTION DELAY [130+ ms QRS DURATION] ABNORMAL ECG UNCONFIRMED REPORT Electronically signed by : Yfn Sandhu MD 09/03/2024 16:10:51
[2024-09-03 07:15] LABS: Basophils % 0.1 % (0.1-2.0); Hematocrit 37.8 % (42.0-52.0); Hemoglobin 12.1 g/dL (14.1-18.0); Lymphocytes # 0.9 K/mm3 (0.7-4.5); Lymphocytes % 10.3 % (10-50); Mean Corpuscular Volume 90.6 fl (80-94); Mean Platelet Volume 9.1 fl (7.4-10.4); Monocytes # 0.7 K/mm3 (0.1-1.0); Monocytes % 7.4 % (1.7-9.3); Neutrophils # 7.2 K/mm3 (1.8-7.8); Neutrophils % 81.7 % (37.0-80.0); Platelet Count 339 K/mm3 (142-424); Red Blood Count 4.17 M/mm3 (4.60-6.20); White Blood Count 8.8 K/mm3 (4.8-10.8)
[2024-09-03 07:30] LABS: Albumin Level 3.3 g/dl (3.5-5.0); Chloride 80 mmol/L (98-107); Potassium 4.1 mmoL/L (3.5-5.1); Sodium 128 mmol/L (136-145)
[2024-09-03 07:32] LABS: Blood Urea Nitrogen 12 mg/dl (9-20)
[2024-09-03 07:33] LABS: Alanine Aminotransferase 20 U/L (12-78); Albumin/Globulin Ratio 1.3 (1.1-1.8); Alkaline Phosphatase 61 U/L (38-126); Aspartate Amino Transferase 25 U/L (17-59); Bilirubin,Total 0.3 mg/dl (0.2-1.3); Calcium 8.2 mg/dl (8.4-10.2); Creatinine Clearance Estimated 54 mL/min (50-200); Estimated Glomerular Filt Rate 163 ml/min (>60); GFR (African American) 197 ML/MIN (>60); Globulin 2.6 g/dL (1.3-3.2); Glucose 134 mg/dl (74-100); Magnesium 1.9 mg/dl (1.6-2.3); Total Protein,Serum 5.9 g/dl (6.3-8.2)
[2024-09-03] MEDS: METHYLPREDNISOLONE SOD SUCC 40MG VIAL 40 MG IV (08:24)
[2024-09-03] MEDS: ASPIRIN EC 81MG TABLET 81 MG PO (08:24)
[2024-09-03] MEDS: FUROSEMIDE 40MG/4ML VIAL 40 MG IV (08:24)
[2024-09-03] MEDS: SODIUM CHLORIDE 1,000MG TABLET 1000 MG PO ×2 (08:24→20:01)
[2024-09-03] MEDS: AZITHROMYCIN 250MG TABLET 250 MG PO (08:24)
[2024-09-03] MEDS: MAGNESIUM SULFATE IN WATER 2 GM/50 ML PIGGYBACK IV (08:41)
[2024-09-03] MEDS: METOPROLOL SUCCINATE XL 25MG TABLET 25 MG PO (08:41)
[2024-09-03] MEDS: ENOXAPARIN 40MG/0.4ML SYRINGE 40 MG SUBCUT (08:41)
[2024-09-03] MEDS: guaiFENesin 600 MG TAB.ER.12H PO ×2 (08:49→20:01)
--- NOTE | 2024-09-03 08:50 | EXP.PHA.PN ---
Subjective *Date: 09/03/24 *Time: 08:50 Medical Exam Vital signs and Labs for Last 24 Hours: Vital Signs Temp Pulse Pulse Resp BP Pulse Ox O2 Del Method 09/03/24 08:00 97.9 F 76 18 120/62 95 Nasal Cannula 09/03/24 07:00 135/71 09/03/24 07:00 85 24 97 Nasal Cannula 09/03/24 06:59 Nasal Cannula 09/03/24 06:00 124/74 09/03/24 06:00 84 10 L 96 Nasal Cannula 09/03/24 05:00 137/73 09/03/24 05:00 85 12 96 Nasal Cannula 09/03/24 04:00 131/71 09/03/24 04:00 98.4 F 90 14 95 Nasal Cannula 09/03/24 04:00 90 09/03/24 03:00 84 13 100 Nasal Cannula 09/03/24 03:00 136/74 09/03/24 02:00 81 12 98 Nasal Cannula 09/03/24 02:00 133/68 09/03/24 01:00 116/67 09/03/24 01:00 80 15 100 Nasal Cannula 09/03/24 01:00 Nasal Cannula 09/03/24 00:00 98.4 F 85 20 126/66 97 Room Air 09/03/24 00:00 78 09/02/24 23:00 85 18 116/70 99 Room Air 09/02/24 23:00 Nasal Cannula 09/02/24 22:00 120 H 12 116/69 100 Room Air 09/02/24 21:00 84 20 112/71 98 09/02/24 21:00 Nasal Cannula 09/02/24 20:00 Nasal Cannula 09/02/24 20:00 84 09/02/24 20:00 98.5 F 86 20 121/67 99 Room Air 09/02/24 19:00 114/62 09/02/24 19:00 83 22 99 Nasal Cannula 09/02/24 19:00 Nasal Cannula 09/02/24 18:22 94 L Nasal Cannula 09/02/24 18:00 86 21 107/86 L 93 L Nasal Cannula 09/02/24 17:01 85 21 125/67 90 L Nasal Cannula 09/02/24 17:00 Nasal Cannula 09/02/24 16:00 98.0 F 09/02/24 16:00 85 12 115/66 96 Nasal Cannula 09/02/24 16:00 80 09/02/24 16:00 85 96 Nasal Cannula 09/02/24 15:00 83 19 129/71 95 Nasal Cannula 09/02/24 15:00 Nasal Cannula 09/02/24 14:00 84 20 123/71 90 L Nasal Cannula 09/02/24 13:00 81 19 97/51 L 92 L Nasal Cannula 09/02/24 13:00 Nasal Cannula 09/02/24 12:00 97.8 F 09/02/24 12:00 76 18 115/62 95 Nasal Cannula 09/02/24 11:50 87 97 Nasal Cannula 09/02/24 11:00 61 19 98/55 L 93 L Nasal Cannula 09/02/24 11:00 Nasal Cannula 09/02/24 10:00 87 18 139/74 90 L Room Air 09/02/24 09:00 90 16 113/59 L 91 L Room Air 09/02/24 09:00 Room Air O2 Flow Rate 09/03/24 08:00 2 09/03/24 07:00 09/03/24 07:00 2 09/03/24 06:59 2 09/03/24 06:00 09/03/24 06:00 2 09/03/24 05:00 09/03/24 05:00 2 09/03/24 04:00 09/03/24 04:00 2 09/03/24 04:00 09/03/24 03:00 2 09/03/24 03:00 09/03/24 02:00 2 09/03/24 02:00 09/03/24 01:00 09/03/24 01:00 2 09/03/24 01:00 2 09/03/24 00:00 09/03/24 00:00 09/02/24 23:00 09/02/24 23:00 2 09/02/24 22:00 09/02/24 21:00 09/02/24 21:00 2 09/02/24 20:00 2 09/02/24 20:00 09/02/24 20:00 09/02/24 19:00 09/02/24 19:00 2 09/02/24 19:00 2 09/02/24 18:22 1.5 09/02/24 18:00 2 09/02/24 17:01 2 09/02/24 17:00 2 09/02/24 16:00 09/02/24 16:00 2 09/02/24 16:00 09/02/24 16:00 2 09/02/24 15:00 2 09/02/24 15:00 2 09/02/24 14:00 2 09/02/24 13:00 2 09/02/24 13:00 2 09/02/24 12:00 09/02/24 12:00 2 09/02/24 11:50 2 09/02/24 11:00 2 09/02/24 11:00 2 09/02/24 10:00 09/02/24 09:00 09/02/24 09:00 Intake and Output 09/02/24 09/03/24 09/03/24 23:59 07:59 15:59 Intake Total 920 / 1662.918 240 / 240 Output Total 1600 / 5100 800 / 800 Balance -680 / -3437.082 -800 / -560 240 / -560 Intake: Intake, Oral Amount 920 / 1520 240 / 240 Output: Output, Urine Amount 1600 / 5100 800 / 800 Other: Number of Voids 1 Number of Unmeasured Voids 0 0 Weight 58.7 kg Patient Weight 09/03/24 23:59 Weight 58.7 kg Laboratory Results - last 24 hr 09/02/24 07:17: Carbon Dioxide 38 H, Anion Gap 10.3, Magnesium 1.5 L 09/02/24 12:11: Lactate 2.0 09/02/24 : NT-Pro-B Natriuret Pep 73608 H 09/03/24 06:40: WBC 8.8, RBC 4.17 L, Hgb 12.1 L, Hct 37.8 L, MCV 90.6, MCH 29.0, MCHC 32.0, RDW 13.0, Plt Count 339, MPV 9.1, Neut % (Auto) 81.7 H, Lymph % (Auto) 10.3, [place] % (Auto) 7.4, Eos % (Auto) 0.0 L, Baso % (Auto) 0.1, Neut # (Auto) 7.2, Lymph # (Auto) 0.9, [place] # (Auto) 0.7, Eos # (Auto) 0.0, Baso # (Auto) 0.0, Sodium 128 L, Potassium 4.1, Chloride 80 L, BUN 12, Creatinine 0.50 L, Estimated Creat Clear 54, Estimated GFR 163, Est GFR ( Amer) 197, Glucose 134 H, Calcium 8.2 L, Magnesium 1.9 D, Total Bilirubin 0.3, AST 25, ALT 20, Alkaline Phosphatase 61, Total Protein 5.9 L, Albumin 3.3 L, Globulin 2.6, Albumin/Globulin Ratio 1.3 I & O for Labs for Last 24 Hours: Intake & Output 08/31/24 09/01/24 09/02/24 09/03/24 23:59 23:59 23:59 23:59 Intake Total 1290.600 / 3817.078 3284.792 / 9257.978 5579.918 / 1662.918 240 / 240 Output Total 2200 / 2200 3125 / 3325 5000 / 5100 800 / 800 Balance -909.400 / -909.400 -1886.208 / -2086.208 -3337.082 / -3437.082 -560 / -560 Weight 58 kg 60 kg 59.874 kg 58.7 kg Microbiology Reports for the Last 24 Hours: Microbiology 08/31/24 20:30 Sputum - Expectorated Sputum Gram Stain - Final 08/31/24 20:30 Sputum - Expectorated Sputum Sputum Culture - Final 08/31/24 04:50 Rectum CRE Surveillance Culture - Final The patient's infection will respond to the chosen ABx?: Yes Is the patient receiving the right drug, dose, and route?: Yes Could a more targeted ABx be ordered?: No
[2024-09-03 09:00] LABS: C-Reactive Protein 32.6 mg/L (0-4)
[2024-09-03 09:02] LABS: Anion Gap 14.1 mEq/L (5-15); Carbon Dioxide 38 mmol/L (22.0-30.0)
[2024-09-03 09:11] LABS: Erythrocyte Sedimentation Rate 11 mm/hr (0-20)
[2024-09-03 09:13] LABS: Procalcitonin 0.059 ng/mL (0.0-2.0)
--- NOTE | 2024-09-03 10:54 | P.PN_ITS ---
Subjective *Date: 09/03/24 *Time: 10:54 Interval history: Doing well. Finish course of antibiotics, steroids. POA midnight for possible LHC tomorrow. Exam Data for Last 24 hours Vital signs and Labs for Last 24 Hours: Temp Pulse Resp BP Pulse Ox O2 Del Method O2 Flow Rate 97.9 F 87 22 155/97 H 99 Room Air 2 09/03/24 08:00 09/03/24 10:00 09/03/24 10:00 09/03/24 10:00 09/03/24 10:00 09/03/24 10:00 09/03/24 08:00 FiO2 25 08/31/24 22:06 Laboratory Results - last 24 hr 09/02/24 12:11: Lactate 2.0 09/03/24 06:40: WBC 8.8, RBC 4.17 L, Hgb 12.1 L, Hct 37.8 L, MCV 90.6, MCH 29.0, MCHC 32.0, RDW 13.0, Plt Count 339, MPV 9.1, Neut % (Auto) 81.7 H, Lymph % (Auto) 10.3, [place] % (Auto) 7.4, Eos % (Auto) 0.0 L, Baso % (Auto) 0.1, Neut # (Auto) 7.2, Lymph # (Auto) 0.9, [place] # (Auto) 0.7, Eos # (Auto) 0.0, Baso # (Auto) 0.0, ESR 11, Sodium 128 L, Potassium 4.1, Chloride 80 L, Carbon Dioxide 3 8 H, Anion Gap 14.1, BUN 12, Creatinine 0.50 L, Estimated Creat Clear 54, Estimated GFR 163, Est GFR ( Amer) 197, Glucose 134 H, Calcium 8.2 L, Magnesium 1.9 D, Total Bilirubin 0.3, AST 25, ALT 20, Alkaline Phosphatase 61, C-Reactive Protein 32.6 H, Total Protein 5.9 L, Albumin 3.3 L, Globulin 2.6, Albumin/Globulin Ratio 1.3, Procalcitonin 0.059 I & O for Last 24 hours: Intake & Output 08/31/24 09/01/24 09/02/24 09/03/24 23:59 23:59 23:59 23:59 Intake Total 1290.600 / 6650.569 7078.792 / 3933.981 7725.918 / 1662.918 240 / 240 Output Total 2200 / 2200 3125 / 3325 5000 / 5100 1750 / 1750 Balance -909.400 / -909.400 -1886.208 / -2086.208 -3337.082 / -3437.082 -1510 / -1510 Weight 58 kg 60 kg 59.874 kg 58.7 kg Microbiology Reports for the Last 24 Hours: Microbiology 08/31/24 20:30 Sputum - Expectorated Sputum Gram Stain - Final 08/31/24 20:30 Sputum - Expectorated Sputum Sputum Culture - Final 08/31/24 04:50 Rectum CRE Surveillance Culture - Final Constitutional Constitutional: no acute distress *Routine HEENT Exam Head: Present normocephalic Eye: Present EOMI and PERRL ENT: Present mucous membranes moist *Routine Neck Exam Neck: Present supple; Absent lymphadenopathy *Routine Respiratory Exam Respiratory: Present CTA bilaterally *Routine Cardiovascular Exam Cardiovascular: Present RRR *Routine Abdominal Exam Abdominal: Present soft and normoactive bowel sounds; Absent tenderness *Routine Extremities Exam Extremities: Absent cyanosis, clubbing or edema *Routine Skin Exam Skin: Present warm; Absent rash *Routine Neurological Exam Neurological: Present alert and oriented X3 Assessment and Plan *Assessment and plan (1) HFrEF (heart failure with reduced ejection fraction): Status: Acute Category: Medical Code(s): I50.20 - Unspecified systolic (congestive) heart failure Plan This is a 74-year-old male who has a past medical history significant for exposure to agent orange, bundle branch block, coronary artery disease, chronic hypoxic hypercapnic respiratory failure, hyperlipidemia, hypertension, diastolic dysfunction, hyponatremia, atrial fibrillation, bilateral carotid artery stenosis, and cardiomyopathy who presents with a chief complaint of left- sided chest pain next to the ribs. #Acute on chronic hypoxic respiratory failure, resolved #Acute hypercapnic respiratory failure, resolved #Community-acquired pneumonia #Reactive airway disease ? Initial and overnight VBG's showing hypercapnic respiratory failure, improved with BiPAP. Has not needed BiPAP since 2 days of admission. ? CTA chest revealed bilateral pneumonia. Received 5-day course of ceftriaxone, azithromycin, Solu-Medrol. Sputum culture normal philip. ? WBC normal, no signs of sepsis. ? DuoNebs as needed ? Pulmonology consulted, started Advair 250. #Chest pain #NSTEMI type II #HFrEF #Severe right heart failure #History of NSTEMI with stent to RCA ? ECHO reveals LVEF 20 to 25%, G2 DD, severe reduction in RV function, moderate AAS, RVSP 50 to 55 mmHg. BNP 8710 troponin 0.13. ? Cardiology consulted, recommended continuing dobutamine and Levophed for suspected early cardiogenic shock. Believe NSTEMI is type II at this time given underlying pneumonia, respiratory failure. ?Continue IV Lasix 40 mg daily given uptrending BNP, intermittent hypoxia. BNP 24,000, initial 8000. ? Cardiology planning for [facility] this coming week, n.p.o. at midnight. #Chronic hyponatremia ? Sodium 124 to 126. Follow-up serum, urine osmolality. ? Salt tab 1000 mg twice daily. Cautious with heart failure. Full code DVT prophylaxis: 30 mg
[2024-09-03] MEDS: FLUTICASONE/SALMETEROL 250/50MCG DISKUS 1 PUFF IH ×2 (12:10→20:21)
[2024-09-03] MEDS: CEFTRIAXONE SODIUM 1 GM in 0.9 % SODIUM CHLORIDE 50 ML IV (13:47)
--- NOTE | 2024-09-03 15:55 | PC.NURSE ---
Patient remained on 2LNC, VS stable. Norepi and dobutamine drips currently infusing. Patient up to chair for breakfast and tolerated well. Patient alert and oriented times 4 during shift.
[2024-09-03] MEDS: ATORVASTATIN 40MG TABLET 40 MG PO (20:01)
[2024-09-04] VITALS (55 sets, daily range): BP systolic 80–126; BP diastolic 22–75; PULSE 54–91; RESP 12–27; TEMP 36.4–36.9; O2SAT 84–100; BMI 18.7
--- NOTE | 2024-09-04 | IR_ITS ---
APPROVED REPORT Patient Location: Inpatient Crtt: Tony Monk RT (R) PROCEDURES 1. Left heart catheterization 2. Selective coronary arteriography 3. Left ventriculography INDICATION 1. Non-Q wave myocardial infarction, 2. Coronary artery disease, 3. Cardiomyopathy SCAI INDICATION Patient is 74-year-old white male who presented with chest pain and shortness of breath. Heart failure and anginal symptoms. Increasing in both intensity and frequency. Underwent medical therapy and then sent for left heart catheterization given known underlying coronary disease with multiple stents in the past Informed consent was obtained prior to the procedure. COMPLICATIONS None Estimated Blood Loss: Less than 10 mls TECHNIQUE One percent lidocaine used to anesthetize the right anterior aspect of the wrist. The right radial artery was accessed via the Seldinger technique. A 6 [place] sheath was placed in the right radial artery. 2.5 mg of Verapamil, 800 mcg of nitroglycerin, 1mg Lidocaine and 5000 U Heparin were given through the arterial sheath. The papa catheter was also used. Access was obtained without difficulty and we had a good flushing and good pressure in the right radial. The catheter would not feed past the brachial artery. The wire fed up all the way to the heart but the catheter would not advance past the lower brachial artery. Secondary to this we moved to the groin. We used a 4 [place]au[place] sheath and a 4 Palauan system. Right common femoral artery was accessed via the Seldinger technique. Catheters you for the procedure were a Zuleika left #4 and a Zuleika right #4 catheter ANGIOGRAPHIC RESULTS The left main artery Angiographically normal The left anterior descending artery Had moderate calcification throughout the proximal and mid vessel. There was a stent noted in the proximal first diagonal branch of the left anterior descending which was patent. Excellent flow into the distal vessel. The left anterior descending itself had diffuse 20% proximal and mid stenosis The circumflex artery Was large in size and codominant with the right coronary artery. High first obtuse marginal branch with smooth 20% proximal and mid stenosis. The mid left circumflex prior to the true circumflex and the takeoff of another large obtuse marginal branch had a 30% eccentric stenosis. Mild calcification throughout the circumflex artery The right coronary artery Moderate in size and codominant with the circumflex. The right coronary artery had stents noted throughout the ostial proximal mid and distal portion. There was ostial 99% stenosis followed by 100% proximal stenosis in-stent. The distal right coronary artery was being fed via [id number] collaterals from the circumflex and left anterior descending The NUGENT ventriculogram reveals Mild to moderate reduction in left ventricular systolic function. Ejection fraction 35 to 40%. Mild global hypokinesis with akinesis of the posterior basal wall. 1+ mitral insufficiency. No gradient on pullback of the catheter The left ventricular end-diastolic pressure 5 Right, retrograde femoral arteriogram performed. Sheath placed in the right common femoral artery. Angio-Seal device deployed without difficulty. I also placed a radial band on the right radial artery when the sheath was removed IMPRESSION 1. Severe one-vessel coronary artery disease with 100% proximal in-stent stenosis of the right coronary artery 2. Brisk ikzk-ir-lcipn collaterals filling the distal right coronary artery up to the stented area 3. Patent stent in the proximal first diagonal branch of the left anterior descending 4. Mild to moderate diffuse coronary calcification 5. Mild to moderate reduction in left ventricular systolic function 6. Normal left ventricular end-diastolic pressure 7. Successful placement of an Angio-Seal device in the right common femoral artery 8. Successful placement of a radial band on the right radial artery PLAN 1. Patient will continue with medical therapy. Patient appears to be euvolemic at this time. Ejection fraction 35 to 40%. Mild mitral insufficiency. At this time I do not see any need in opening up the right coronary artery. The entire stented area throughout the ostial, proximal, mid and distal right coronary artery is occluded. There are brisk [id number] collaterals filling the right coronary artery up to the stented area. The stent in the first diagonal branch of the left anterior descending is open. Mild diffuse disease in the left coronary system. Continue with aggressive medical therapy. No intervention needed at this time. Follow-up in cardiology clinic 1 to 2 weeks after discharge Electronically signed by : Jasvir Nathan MD 09/04/2024 16:16:59
[2024-09-04] MEDS: FLUTICASONE/SALMETEROL 250/50MCG DISKUS 1 PUFF IH (06:20)
[2024-09-04 06:40] LABS: Basophils % 0.2 % (0.1-2.0); Eosinophils # 0.1 K/mm3 (0.0-0.4); Eosinophils % 0.5 % (0.1-12.0); Hematocrit 38.7 % (42.0-52.0); Hemoglobin 12.6 g/dL (14.1-18.0); Lymphocytes # 2.3 K/mm3 (0.7-4.5); Lymphocytes % 18.6 % (10-50); Mean Corpuscular HGB Conc 32.6 g/dL (31.8-35.4); Mean Corpuscular Hemoglobin 29.4 pg (27.0-31.2); Mean Corpuscular Volume 90.4 fl (80-94); Mean Platelet Volume 9.2 fl (7.4-10.4); Monocytes # 1.3 K/mm3 (0.1-1.0); Monocytes % 10.4 % (1.7-9.3); Neutrophils # 8.5 K/mm3 (1.8-7.8); Neutrophils % 69.6 % (37.0-80.0); Platelet Count 356 K/mm3 (142-424); Red Blood Count 4.28 M/mm3 (4.60-6.20); Red Cell Distribution Width 12.9 % (11.5-17.5); White Blood Count 12.2 K/mm3 (4.8-10.8)
[2024-09-04 07:00] LABS: Alanine Aminotransferase 19 U/L (12-78); Albumin Level 3.1 g/dl (3.5-5.0); Albumin/Globulin Ratio 1.2 (1.1-1.8); Alkaline Phosphatase 55 U/L (38-126); Aspartate Amino Transferase 26 U/L (17-59); Bilirubin,Total 0.2 mg/dl (0.2-1.3); Blood Urea Nitrogen 14 mg/dl (9-20); Calcium 8.2 mg/dl (8.4-10.2); Chloride 84 mmol/L (98-107); Creatinine Clearance Estimated 54 mL/min (50-200); Estimated Glomerular Filt Rate 163 ml/min (>60); GFR (African American) 197 ML/MIN (>60); Globulin 2.5 g/dL (1.3-3.2); Glucose 82 mg/dl (74-100); Magnesium 1.8 mg/dl (1.6-2.3); Potassium 3.9 mmoL/L (3.5-5.1); Sodium 125 mmol/L (136-145); Total Protein,Serum 5.6 g/dl (6.3-8.2)
[2024-09-04 07:45] LABS: Anion Gap 10.9 mEq/L (5-15); Carbon Dioxide 34 mmol/L (22.0-30.0)
[2024-09-04 07:50] LABS: Erythrocyte Sedimentation Rate 5 mm/hr (0-20)
[2024-09-04] MEDS: MAGNESIUM SULFATE IN WATER 2 GM/50 ML PIGGYBACK IV (08:24)
--- NOTE | 2024-09-04 09:28 | EXP.PULM.PN ---
Subjective *Date: 09/04/24 *Time: 12:20 Interval history: No acute respiratory vents over the weekend. Patient denies any new respiratory complaints. Pulmonology Exam Inpatient Vital signs and Labs for Last 24 Hours: Temp Pulse Resp BP Pulse Ox O2 Del Method O2 Flow Rate 97.6 F 83 27 H 123/66 92 L Nasal Cannula 1 09/04/24 08:00 09/04/24 09:00 09/04/24 09:00 09/04/24 09:00 09/04/24 09:00 09/04/24 09:00 09/04/24 09:00 FiO2 25 08/31/24 22:06 Laboratory Results - last 24 hr 09/04/24 05:30: WBC 12.2 H D, RBC 4.28 L, Hgb 12.6 L, Hct 38.7 L, MCV 90.4, MCH 29.4, MCHC 32.6, RDW 12.9, Plt Count 356, MPV 9.2, Neut % (Auto) 69.6, Lymph % (Auto) 18.6, [place] % (Auto) 10.4 H, Eos % (Auto) 0.5, Baso % (Auto) 0.2, Neut # (Auto) 8.5 H, Lymph # (Auto) 2.3, [place] # (Auto) 1.3 H, Eos # (Auto) 0.1, Baso # (Auto) 0.0, ESR 5, Sodium 125 L, Potassium 3.9, Chloride 84 L, Carbon Dioxide 34 H, Anion Gap 10.9, BUN 14, Creatinine 0.50 L, Estimated Creat Clear 54, Estimated GFR 163, Est GFR ( Amer) 197, Glucose 82 D, Calcium 8.2 L, Magnesium 1.8, Total Bilirubin 0.2, AST 26, ALT 19, Alkaline Phosphatase 55, Total Protein 5.6 L, Albumin 3.1 L, Globulin 2.5, Albumin/Globulin Ratio 1.2 Temp Pulse Resp BP Pulse Ox O2 Del Method O2 Flow Rate 99.1 F 98 H 26 H 107/49 L 86 L Nasal Cannula 2 08/31/24 14:30 08/31/24 14:30 08/31/24 14:30 08/31/24 14:30 08/31/24 14:30 08/31/24 14:16 08/31/24 14:16 FiO2 25 08/31/24 11:16 Laboratory Results - last 24 hr 08/30/24 15:06: WBC 14.9 H, RBC 4.34 L, Hgb 13.1 L, Hct 39.5 L, MCV 91.0, MCH 30.2, MCHC 33.2, RDW 13.1, Plt Count 244, MPV 9.6, Neut % (Auto) 86.4 H, Lymph % (Auto) 5.9 L, [place] % (Auto) 6.9, Eos % (Auto) 0.1, Baso % (Auto) 0.3, Neut # (Auto) 12.9 H, Lymph # (Auto) 0.9, [place] # (Auto) 1.0, Eos # (Auto) 0.0, Baso # (Auto) 0.0, Sodium 125 L, Potassium 4.8, Chloride 83 L, Carbon Dioxide 34 H, Anion Gap 12.8, BUN 16, Creatinine 0.50 L, Estimated Creat Clear 54, Estimated GFR 163, Est GFR ( Amer) 197, Glucose 137 H, Calcium 8.9, Total Bilirubin 1.5 H, AST 28, ALT 23, Alkaline Phosphatase 66, Troponin I 0.09 H, NT-Pro-B Natriuret Pep 8710 H, Total Protein 7.0, Albumin 4.0, Globulin 3.0, Albumin/Globulin Ratio 1.3 08/30/24 15:16: VBG pH 7.29 L, VBG pCO2 56.4 H, VBG pO2 35.0, VBG HCO3 26.5, VBG Total CO2 28.2 H, VBG O2 Saturation 64.1, VBG Base Excess -0.1, VBG Lactic Acid 1.8 08/30/24 17:27: SARS-CoV-2 (PCR) Not detected, Influenza A Untype (PCR) Not detected, Influenza Type B (PCR) Not detected 08/30/24 18:29: Troponin I 0.08 H 08/30/24 19:04: VBG Lactic Acid 0.9 08/30/24 20:15: Total Bilirubin 1.0 08/30/24 21:40: Troponin I 0.10 H 08/31/24 01:00: VBG pH 7.22 L, VBG pCO2 75.3 H, VBG pO2 61.0 H, VBG HCO3 30.1 H, VBG Total CO2 32.4 H, VBG O2 Saturation 87.9 H, VBG Base Excess 2.4 H, VBG Lactic Acid 1.1 08/31/24 01:40: Urine Color Dark yellow, Urine Appearance Clear, Urine pH 6.0, Ur Specific [place] 1.020, Urine Protein 1+ A, Urine Glucose (UA) Negative, Urine Ketones Trace, Urine Blood Negative, Urine Nitrate Negative, Urine Bilirubin Negative, Urine Urobilinogen >=8.0, Ur Leukocyte Esterase Negative, Urine RBC None, Urine WBC None, Ur Squamous Epith Cells Occasional, Urine Bacteria Trace, Urine Sodium 6.0 L 08/31/24 03:36: VBG pH 7.26 L, VBG pCO2 67.8 H, VBG pO2 38.0, VBG HCO3 29.8, VBG Total CO2 31.9 H, VBG O2 Saturation 68.9, VBG Base Excess 2.8 H, VBG Lactic Acid 1.1 08/31/24 06:44: WBC 9.3 D, RBC 4.24 L, Hgb 12.7 L, Hct 39.7 L, MCV 93.6, MCH 30.0, MCHC 32.0, RDW 13.3, Plt Count 240, MPV 9.5, Neut % (Auto) 94.4 H, Lymph % (Auto) 3.7 L, [place] % (Auto) 1.4 L, Eos % (Auto) 0.0 L, Baso % (Auto) 0.1, Neut # (Auto) 8.8 H, Lymph # (Auto) 0.4 L, [place] # (Auto) 0.1, Eos # (Auto) 0.0, Baso # (Auto) 0.0, Total Counted 100, Neutrophils % (Manual) 96 H, Lymphocytes % (Manual) 3 L, Monocytes % (Manual) 1 L, Platelet Estimate Normal, RBC Morphology Normal, Sodium 124 L, Potassium 5.0, Chloride 88 L, Carbon Dioxide 33 H, Anion Gap 8.0, BUN 22 H D, Creatinine 0.60 L, Estimated Creat Clear 53, Estimated GFR 132, Est GFR ( Amer) 159, Glucose 169 H D, Calcium 8.4, Troponin I 0.13 H, Procalcitonin 0.150 08/31/24 09:40: VBG pH 7.28 L, VBG pCO2 67.8 H, VBG pO2 75.1 H, VBG HCO3 31.1 H, VBG Total CO2 33.2 H, VBG O2 Saturation 93.3 H, VBG Base Excess 4.3 H, VBG Lactic Acid 1.5 08/31/24 12:02: VBG pH 7.45 H, VBG pCO2 42.1, VBG pO2 53.3 H, VBG HCO3 28.8, VBG Total CO2 30.1 H, VBG O2 Saturation 90.7 H, VBG Base Excess 4.9 H, VBG Lactic Acid 1.3 I & O for Labs for Last 24 Hours: Intake & Output 09/01/24 09/02/24 09/03/24 09/04/24 23:59 23:59 23:59 23:59 Intake Total 1238.792 / 8001.730 5680.894 / 5778.161 5196 / 1740 244.229 / 244.229 Output Total 3125 / 3325 5000 / 5100 2325 / 2325 475 / 475 Balance -1886.208 / -2086.208 -3319.106 / -3419.106 -585 / -585 -230.771 / -230.771 Weight 132 lb 4.438 oz 132 lb 129 lb 6.581 oz 130 lb 11.746 oz Intake & Output 08/28/24 08/29/24 08/30/24 08/31/24 23:59 23:59 23:59 23:59 Intake Total 528.187 / 528.187 Output Total 200 / 200 800 / 800 Balance -200 / -39 -271.813 / -271.813 Weight 130 lb 127 lb 13.89 oz Microbiology Reports for the Last 24 Hours: Microbiology 08/30/24 17:38 Blood Blood Culture - Preliminary NO GROWTH AFTER 4 DAYS 08/30/24 17:38 Blood Blood Culture - Preliminary NO GROWTH AFTER 4 DAYS 08/31/24 20:30 Sputum - Expectorated Sputum Gram Stain - Final 08/31/24 20:30 Sputum - Expectorated Sputum Sputum Culture - Final 08/31/24 04:50 Rectum CRE Surveillance Culture - Final Constitutional: Present mild distress Head: Present normocephalic and atraumatic ENT: Present normal exam, normal oropharynx and mucous membranes moist Neck: Present normal inspection and full ROM Respiratory: Present respiratory distress and able to speak in complete sentences; Absent prolonged expiratory phase, rhonchi or wheezes Cardiac: Present S1/S2, Tachycardia and radial pulses present GI: Present soft and distention; Absent tenderness or guarding Skin: Present intact; Absent cyanosis or jaundice Neuro: Present alert, awake and oriented x 3 Comment:: Arousable to verbal stimuli Extremities: Present normal inspection; Absent clubbing or cyanosis Psychiatric: Present normal affect and cooperative Assessment and Plan *Assessment and plan (1) Acute on chronic respiratory failure with hypoxia and hypercapnia: Status: Acute Category: Medical Code(s): J96.21 - Acute and chronic respiratory failure with hypoxia; J96.22 - Acute and chronic respiratory failure with hypercapnia (2) Fibrosis of lung: Status: Acute Category: Medical Code(s): J84.10 - Pulmonary fibrosis, unspecified (3) Pulmonary emphysema: Status: Acute Category: Medical Code(s): J43.9 - Emphysema, unspecified (4) Pneumonia: Status: Acute Qualifiers: Laterality: bilateral Lung location: lower lobe of lung Pneumonia type: due to unspecified organism Qualified Code(s): J18.9 - Pneumonia, unspecified organism Category: Medical Code(s): J18.9 - Pneumonia, unspecified organism Plan Mr. Mosher is a 74-year-old male with a prior history of agent orange exposure CAD, chronic hypoxic respiratory failure presented to the ER with worsening respiratory distress and his initial blood gas showed hypercarbic respiratory failure needing noninvasive ventilatory support and pulmonary was called for further evaluation and management. Not using any inhalers at baseline. Admits using 3 L nasal cannula oxygen supplementation CT chest bilateral subpleural interstitial changes along with patchy airspace disease. Paraseptal emphysematous changes also noted. Neutrophilic predominant leukocytosis upon admission, improving. COVID-19 and flu PCR panel negative. Admission ABG hypercarbic respiratory failure with a pH of 7.22 and pCO2 75.3. BiPAP settings changes morning and follow-up ABG showed significant improvement in the noted hypercarbic respiratory failure with a pH now at 7.45 and pCO2 42.1 Initial examination auscultation bilateral rhonchorous breath sounds and diffuse wheezing. Interval update: No acute respiratory vents over the weekend. Completed 5-day course of antibiotics and steroids. ABG from this morning continue to show hypercarbic respiratory failure with a pH of 7.35 and pCO2 64.5. Will follow as an outpatient basis to determine the need for noninvasive ventilatory therapy Plan: Change Advair to Trelegy 100 inhaler Continue oxygen supplementation NEEDED to maintain O2 saturation of 90 to 95%. Wean as tolerated. No need for noninvasive ventilatory therapy tonight # Thank you for involving pulmonary in this patient. Will follow the patient in pulmonary clinic 2 to 4 weeks post discharge
[2024-09-04 09:39] LABS: Procalcitonin 0.069 ng/mL (0.0-2.0)
[2024-09-04] MEDS: SODIUM CHLORIDE 1,000MG TABLET 1000 MG PO ×2 (09:44→20:43)
[2024-09-04] MEDS: FUROSEMIDE 40MG/4ML VIAL 40 MG IV (09:44)
[2024-09-04] MEDS: guaiFENesin 600 MG TAB.ER.12H PO ×2 (09:44→20:43)
[2024-09-04] MEDS: METOPROLOL SUCCINATE XL 25MG TABLET 25 MG PO (09:44)
--- NOTE | 2024-09-04 10:51 | PC.NURSE ---
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
[2024-09-04 12:18] LABS: Blood Urea Nitrogen 17 mg/dl (9-20); Calcium 8.2 mg/dl (8.4-10.2); Chloride 83 mmol/L (98-107); Creatinine Clearance Estimated 54 mL/min (50-200); Estimated Glomerular Filt Rate 110 ml/min (>60); GFR (African American) 133 ML/MIN (>60); Glucose 88 mg/dl (74-100); Potassium 3.7 mmoL/L (3.5-5.1); Sodium 126 mmol/L (136-145)
[2024-09-04 12:25] LABS: Anion Gap 5.7 mEq/L (5-15); Carbon Dioxide 41 mmol/L (22.0-30.0)
--- NOTE | 2024-09-04 13:30 | P.PN_ITS ---
Subjective Subjective Date: 09/04/24 Time: 11:00 Principal diagnosis: HFrEF, cardiomyopathy Interval history: This is a 74-year-old gentleman who was admitted to the hospital with acute HFrEF and a non-STEMI. He states that he is feeling much better now. Patient was having chest pain and diagnosed with pneumonia. He has been treated with IV antibiotics and has improved from his pneumonia standpoint. He has new onset cardiomyopathy and acute HFrEF in the setting of a non-STEMI and will undergo left cardiac catheterization this morning. He denies any chest pain or pressure. He denies any shortness of breath or edema. He denies any fever, chills, nausea, vomiting, diarrhea, PND orthopnea. His dobutamine and Levophed drips have been stopped this morning. Exam Data for Last 24 hours Vital signs and Labs for Last 24 Hours: Temp Pulse Resp BP Pulse Ox O2 Del Method O2 Flow Rate 97.6 F 81 21 102/75 L 95 Nasal Cannula 1 09/04/24 08:00 09/04/24 11:30 09/04/24 11:30 09/04/24 11:30 09/04/24 11:30 09/04/24 11:41 09/04/24 11:41 FiO2 08/31/24 22:06 Laboratory Results - last 24 hr 09/04/24 05:30: WBC 12.2 H D, RBC 4.28 L, Hgb 12.6 L, Hct 38.7 L, MCV 90.4, MCH 29.4, MCHC 32.6, RDW 12.9, Plt Count 356, MPV 9.2, Neut % (Auto) 69.6, Lymph % (Auto) 18.6, [place] % (Auto) 10.4 H, Eos % (Auto) 0.5, Baso % (Auto) 0.2, Neut # (Auto) 8.5 H, Lymph # (Auto) 2.3, [place] # (Auto) 1.3 H, Eos # (Auto) 0.1, Baso # (Auto) 0.0, ESR 5, Sodium 125 L, Potassium 3.9, Chloride 84 L, Carbon Dioxide 34 H, Anion Gap 10.9, BUN 14, Creatinine 0.50 L, Estimated Creat Clear 54, Estimated GFR 163, Est GFR ( Amer) 197, Glucose 82 D, Calcium 8.2 L, Magnesium 1.8, Total Bilirubin 0.2, AST 26, ALT 19, Alkaline Phosphatase 55, C-Reactive Protein 18.0 H D, Total Protein 5.6 L, Albumin 3.1 L, Globulin 2.5, Albumin/Globulin Ratio 1.2, Procalcitonin 0.069 09/04/24 12:00: Sodium 126 L, Potassium 3.7, Chloride 83 L, Carbon Dioxide 41 H* , Anion Gap 5.7, BUN 17, Creatinine 0.70 D, Estimated Creat Clear 54, Estimated GFR 110, Est GFR ( Amer) 133 D, Glucose 88, Calcium 8.2 L I & O for Last 24 hours: Intake & Output 09/01/24 09/02/24 09/03/24 09/04/24 23:59 23:59 23:59 23:59 Intake Total 1238.792 / 8603.011 3942.894 / 9509.269 9596 / 1740 508.581 / 508.581 Output Total 3125 / 3325 5000 / 5100 2325 / 2325 1125 / 1125 Balance -1886.208 / -2086.208 -3319.106 / -3419.106 -585 / -585 -616.419 / - 616.419 Weight 132 lb 4.438 oz 132 lb 129 lb 6.581 oz 130 lb 11.746 oz Microbiology Reports for the Last 24 Hours: Microbiology 08/30/24 17:38 Blood Blood Culture - Preliminary NO GROWTH AFTER 4 DAYS 08/30/24 17:38 Blood Blood Culture - Preliminary NO GROWTH AFTER 4 DAYS Constitutional Constitutional: no acute distress and thin *Routine HEENT Exam Head: Present normocephalic *Routine Neck Exam Neck: Present supple and full ROM *Routine Respiratory Exam Respiratory: Present decreased breath sounds; Absent wheezes *Routine Cardiovascular Exam Cardiovascular: Present RRR, Normal S1 and Normal S2 *Routine Abdominal Exam Abdominal: Present soft and normoactive bowel sounds *Routine Extremities Exam Extremities: Present full ROM; Absent cyanosis, clubbing or edema *Routine Skin Exam Skin: Present intact; Absent cyanosis *Routine Neurological Exam Neurological: Present alert and oriented X3 Routine Psychiatric Exam Psychiatric: Present normal affect and cooperative Progress Note: A&P Assessment and plan (1) Acute on chronic respiratory failure with hypoxia and hypercapnia: Status: Acute (2) Fibrosis of lung: Status: Acute (3) Pulmonary emphysema: Status: Acute (4) Pneumonia: Status: Acute (5) HFrEF (heart failure with reduced ejection fraction): Status: Acute (6) Non-ST elevation ID (NSTEMI): Status: Acute (7) Coronary artery disease: Status: Chronic (8) HLD (hyperlipidemia): Status: Chronic (9) Diastolic dysfunction: Status: Chronic (10) Atrial fibrillation: Status: Acute (11) Hyponatremia: Status: Acute (12) Hypertension: Status: Resolved Assessment and Plan Assessment and Plan for All Diagnoses:: Plan: 1. The patient was admitted to the hospital with bilateral lower lobe pneumonia and sepsis as well as respiratory failure. The patient is on IV antibiotics. Will defer to pulmonology and the hospitalist. 2. The patient did have elevated troponins on admission and new onset cardiomyopathy. Given his non-STEMI will plan to proceed with left cardiac catheterization today to evaluate for coronary artery disease. His mani score is 150. 3. The patient has been educated the risk and benefits of proceeding with left cardiac catheterization. The patient verbalizes understanding and is agreeable in proceeding with the procedure. 4. The patient will be n.p.o. after lunch and preparation for left cardiac catheterization. 5. Will stop his dobutamine and Levophed drips today. 6. Continue aspirin 81 mg daily for his non-STEMI. 7. Continue Toprol for the non-STEMI. 8. Once he is more hemodynamically stable we will try to get him started on Entresto for HFrEF. 9. Continue IV Lasix for HFrEF and new onset cardiomyopathy. 10. Once he is euvolemic we will also consider Jardiance on this patient with HFrEF. 11. The patient does have severe LV dysfunction. His ejection fraction is 20 to 25%. He is at increased risk for sudden cardiac . Due to his increased risk for sudden cardiac we will get him fitted for LifeVest prior to discharge home. Will get this ordered today. 12. His blood pressure is well-controlled. As mentioned above his Levophed and dobutamine drips have been stopped today. 13. His LDL goal is less than 55. He is on a statin. Will get a liver and lipid panel in the morning. 14. Further recommendations will be made pending the patient's response to treatment and the results of his left cardiac catheterization today. Thank you for the opportunity to help dissipate in the care of this patient. All recommendations and orders are per Dr. Cerrato.
[2024-09-04] MEDS: diphenhydrAMINE 50MG/ML VIAL 50 MG IV ×2 (15:43→15:44)
[2024-09-04] MEDS: LIDOCAINE 1% 10ML MDV 20 ML IJ (15:43)
[2024-09-04] MEDS: VERAPAMIL 2.5MG/ML 2ML VIAL 2.5 MG IV (15:43)
[2024-09-04] MEDS: FENTANYL 100MCG/2ML VIAL 50 MCG IV (15:44)
[2024-09-04] MEDS: MIDAZOLAM HCL 1MG/ML 5ML VIAL 1 MG IV (15:44)
[2024-09-04] MEDS: NITROGLYCERIN 800MCG/8ML SYR (CATH LAB) 800 MCG IA (15:47)
[2024-09-04] MEDS: HEPARIN 1,000 UNITS/ML 10ML VIAL (CATH LAB) 10000 UNIT IV (15:48)
[2024-09-04] MEDS: IOPAMIDOL-370 (76%);100ML BOTTLE 60 ML IV (16:21)
[2024-09-04] MEDS: ATORVASTATIN 40MG TABLET 40 MG PO (20:43)
[2024-09-04] MEDS: ACETAMINOPHEN 325MG TAB 650 MG PO (21:49)
--- NOTE | 2024-09-04 22:07 | P.PN_ITS ---
Subjective *Date: 09/04/24 *Time: 22:07 Interval history: Patient continues to feel well, diuresing well. LHC today without need for stents. Soft pressures, making it challenging for GDMT. Plan for LifeVest tomorrow. Exam Data for Last 24 hours Vital signs and Labs for Last 24 Hours: Temp Pulse Resp BP Pulse Ox O2 Del Method O2 Flow Rate 97.8 F 68 21 100/51 L 92 L Room Air 2 09/04/24 20:45 09/04/24 20:45 09/04/24 20:45 09/04/24 20:45 09/04/24 20:45 09/04/24 21:00 09/04/24 16:20 FiO2 25 08/31/24 22:06 Laboratory Results - last 24 hr 09/04/24 05:30: WBC 12.2 H D, RBC 4.28 L, Hgb 12.6 L, Hct 38.7 L, MCV 90.4, MCH 29.4, MCHC 32.6, RDW 12.9, Plt Count 356, MPV 9.2, Neut % (Auto) 69.6, Lymph % (Auto) 18.6, [place] % (Auto) 10.4 H, Eos % (Auto) 0.5, Baso % (Auto) 0.2, Neut # (Auto) 8.5 H, Lymph # (Auto) 2.3, [place] # (Auto) 1.3 H, Eos # (Auto) 0.1, Baso # (Auto) 0.0, ESR 5, Sodium 125 L, Potassium 3.9, Chloride 84 L, Carbon Dioxide 34 H, Anion Gap 10.9, BUN 14, Creatinine 0.50 L, Estimated Creat Clear 54, Estimated GFR 163, Est GFR ( Amer) 197, Glucose 82 D, Calcium 8.2 L, Magnesium 1.8, Total Bilirubin 0.2, AST 26, ALT 19, Alkaline Phosphatase 55, C-Reactive Protein 18.0 H D, Total Protein 5.6 L, Albumin 3.1 L, Globulin 2.5, Albumin/Globulin Ratio 1.2, Procalcitonin 0.069 09/04/24 12:00: Sodium 126 L, Potassium 3.7, Chloride 83 L, Carbon Dioxide 41 H* , Anion Gap 5.7, BUN 17, Creatinine 0.70 D, Estimated Creat Clear 54, Estimated GFR 110, Est GFR ( Amer) 133 D, Glucose 88, Calcium 8.2 L I & O for Last 24 hours: Intake & Output 09/01/24 09/02/24 09/03/24 09/04/24 23:59 23:59 23:59 23:59 Intake Total 1238.792 / 5380.604 7359.894 / 5757.619 3927 / 1740 778.581 / 778.581 Output Total 3125 / 3325 5000 / 5100 2325 / 2325 1325 / 1325 Balance -1886.208 / -2086.208 -3319.106 / -3419.106 -585 / -585 -546.419 / - 546.419 Weight 60 kg 59.874 kg 58.7 kg 59.3 kg Microbiology Reports for the Last 24 Hours: Microbiology 08/30/24 17:38 Blood Blood Culture - Final NO GROWTH AFTER 5 DAYS 08/30/24 17:38 Blood Blood Culture - Final NO GROWTH AFTER 5 DAYS Constitutional Constitutional: no acute distress *Routine HEENT Exam Head: Present normocephalic Eye: Present EOMI and PERRL ENT: Present mucous membranes moist *Routine Neck Exam Neck: Present supple; Absent lymphadenopathy *Routine Respiratory Exam Respiratory: Present CTA bilaterally *Routine Cardiovascular Exam Cardiovascular: Present RRR *Routine Abdominal Exam Abdominal: Present soft and normoactive bowel sounds; Absent tenderness *Routine Extremities Exam Extremities: Absent cyanosis, clubbing or edema *Routine Skin Exam Skin: Present warm; Absent rash *Routine Neurological Exam Neurological: Present alert and oriented X3 Assessment and Plan *Assessment and plan (1) HFrEF (heart failure with reduced ejection fraction): Status: Acute Category: Medical Code(s): I50.20 - Unspecified systolic (congestive) heart failure Plan This is a 74-year-old male who has a past medical history significant for exposure to agent orange, bundle branch block, coronary artery disease, chronic hypoxic hypercapnic respiratory failure, hyperlipidemia, hypertension, diastolic dysfunction, hyponatremia, atrial fibrillation, bilateral carotid artery stenosis, and cardiomyopathy who presents with a chief complaint of left- sided chest pain next to the ribs. #Acute on chronic hypoxic respiratory failure, resolved #Acute hypercapnic respiratory failure, resolved #Community-acquired pneumonia #Reactive airway disease ? Initial VBG showing hypercapnic respiratory failure, improved with BiPAP. Has not needed BiPAP since 2 days of admission. ? CTA chest revealed bilateral pneumonia. Received 5-day course of ceftriaxone, azithromycin, Solu-Medrol. Sputum culture normal philip. ? WBC 12.2, no signs of sepsis. ? DuoNebs as needed. On room air saturating 90%. ? Pulmonology consulted, switched from Advair to Trelegy 100. #Chest pain #NSTEMI type II #HFrEF #Severe right heart failure, cor pulmonale #History of NSTEMI with stent to RCA ? ECHO reveals LVEF 20 to 25%, G2 DD, severe reduction in RV function, moderate AAS, RVSP 50 to 55 mmHg. Initial BNP 8710 troponin 0.13. ? Cardiology consulted, initially started dobutamine and Levophed for suspected early cardiogenic shock. Weaned off today. ? 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 Likely explains, pulmonal. ? Continue IV Lasix 40 mg daily given uptrending BNP, intermittent hypoxia. BNP 24,000, initial 8000. Total net -7 L output. ? LHC today without significant occlusive disease. No stents. ? Patient continues to have soft pressures, making it challenging to start GDMT. ? Cardiology planning for LifeVest tomorrow. ? Will benefit from pulmonology referral for further evaluation and management of interstitial lung disease, cor pulmonale. #Chronic hyponatremia ? Sodium 126. Follow-up serum, urine osmolality. ? Salt tab 1000 mg twice daily. Cautious with heart failure. Full code DVT prophylaxis: 30 mg
[2024-09-05] VITALS (24 sets, daily range): BP systolic 91–120; BP diastolic 43–62; PULSE 50–90; RESP 14–26; TEMP 36.4–37; O2SAT 89–98; BMI 18.7
[2024-09-05 06:14] LABS: Basophils % 0.3 % (0.1-2.0); Eosinophils # 0.2 K/mm3 (0.0-0.4); Eosinophils % 1.3 % (0.1-12.0); Hemoglobin 12.6 g/dL (14.1-18.0); Lymphocytes # 1.7 K/mm3 (0.7-4.5); Lymphocytes % 14.3 % (10-50); Mean Corpuscular HGB Conc 32.3 g/dL (31.8-35.4); Mean Corpuscular Hemoglobin 29.5 pg (27.0-31.2); Mean Corpuscular Volume 91.3 fl (80-94); Mean Platelet Volume 9.1 fl (7.4-10.4); Monocytes # 0.8 K/mm3 (0.1-1.0); Monocytes % 6.3 % (1.7-9.3); Neutrophils # 9.3 K/mm3 (1.8-7.8); Neutrophils % 76.7 % (37.0-80.0); Platelet Count 301 K/mm3 (142-424); Red Blood Count 4.27 M/mm3 (4.60-6.20); White Blood Count 12.1 K/mm3 (4.8-10.8)
[2024-09-05] MEDS: FLUTICASONE/UMECLIDIN/VILANTER 100/62.5/25MCG INHALER 1 PUFF IH (06:28)
[2024-09-05 06:40] LABS: Alanine Aminotransferase 19 U/L (12-78); Albumin/Globulin Ratio 1.4 (1.1-1.8); Alkaline Phosphatase 51 U/L (38-126); Aspartate Amino Transferase 26 U/L (17-59); Bilirubin,Total 0.3 mg/dl (0.2-1.3); Blood Urea Nitrogen 27 mg/dl (9-20); Calcium 7.9 mg/dl (8.4-10.2); Chloride 87 mmol/L (98-107); Creatinine Clearance Estimated 54 mL/min (50-200); Estimated Glomerular Filt Rate 132 ml/min (>60); GFR (African American) 159 ML/MIN (>60); Globulin 2.2 g/dL (1.3-3.2); Glucose 85 mg/dl (74-100); Magnesium 1.9 mg/dl (1.6-2.3); Potassium 3.8 mmoL/L (3.5-5.1); Sodium 127 mmol/L (136-145); Total Protein,Serum 5.2 g/dl (6.3-8.2)
[2024-09-05 07:12] LABS: Osmolality, Urine 315 mOsmol/kg (.)
[2024-09-05 07:55] LABS: Alanine Aminotransferase 18 U/L (12-78); Albumin Level 2.9 g/dl (3.5-5.0); Alkaline Phosphatase 52 U/L (38-126); Aspartate Amino Transferase 25 U/L (17-59); Bilirubin,Direct 0.1 mg/dl (0.0-0.4); Bilirubin,Indirect 0.1 mg/dL (0.0-0.9); Bilirubin,Total 0.2 mg/dl (0.2-1.3); Bilirubin,Unconjugated 0.1 mg/dL (0.0-1.1); Chol/HDL Ratio 2.3 (1-3.5); Cholesterol 102 mg/dl (140-200); HDL Cholesterol 45 mg/dl (40-60); Total Protein,Serum 4.9 g/dl (6.3-8.2); Triglycerides 87 mg/dl (30-150); VLDL Cholesterol 17 mg/dL (0-40)
[2024-09-05 08:06] LABS: Direct LDL Cholesterol 37.11 mg/dL (100-129)
[2024-09-05 08:14] LABS: C-Reactive Protein 10.7 mg/L (0-4)
[2024-09-05 08:15] LABS: Procalcitonin 0.069 ng/mL (0.0-2.0)
[2024-09-05] MEDS: ASPIRIN EC 81MG TABLET 81 MG PO (08:25)
[2024-09-05] MEDS: SODIUM CHLORIDE 1,000MG TABLET 1000 MG PO (08:25)
[2024-09-05] MEDS: FUROSEMIDE 40MG/4ML VIAL 40 MG IV (08:25)
[2024-09-05] MEDS: guaiFENesin 600 MG TAB.ER.12H PO (08:26)
[2024-09-05] MEDS: METOPROLOL SUCCINATE XL 25MG TABLET 25 MG PO (08:26)
[2024-09-05] MEDS: ENOXAPARIN 40MG/0.4ML SYRINGE 40 MG SUBCUT (08:26)
[2024-09-05 08:45] LABS: Anion Gap 10.8 mEq/L (5-15); Carbon Dioxide 33 mmol/L (22.0-30.0)
--- NOTE | 2024-09-05 09:04 | EXP.DC.SUM ---
General Admission date:: 08/31/24 Discharge date: 09/05/24 HPI HPI HPI: This is a 74-year-old male who has a past medical history significant for exposure to agent orange, bundle branch block, coronary artery disease, chronic hypoxic hypercapnic respiratory failure, hyperlipidemia, hypertension, diastolic dysfunction, hyponatremia, atrial fibrillation, bilateral carotid artery stenosis, and cardiomyopathy who presents with a chief complaint of left-sided chest pain next to the ribs. Due to patient's symptoms, he presented to the emergency room for evaluation. While in the emergency room CT scan of the chest revealed bilateral lower lobe pneumonia. He did have an increase heart rate, increased white blood cell count, and due to source of pneumonia clinically he is meeting sepsis criteria. Patient's chest pain was discussed with ambulance operations supervisor who recommended extended release metoprolol. Patient has been admitted for further management. During my evaluation of the patient, patient states that he started having pain to his left lower side yesterday when he was in or out to [place]. He was there to have a check sign. He states the entire ride there and the way back he had this worsening chest pain. Today, his chest pain was worse with inspiration and was ongoing all day without any relief. Patient chronically wears oxygen at 3 L by nasal cannula., Patient states he has been coughing up thick sputum. He is currently denying any fever, chills, rigors, nausea, vomiting, lightheadedness, dizziness, shortness of breath, dyspnea, PND, orthopnea, lower extremity swelling, or diarrhea. Additional pertinent vitals obtained include a white blood cell count of 14.9, red blood cell count of 4.34, hemoglobin 13.1, hematocrit 39.5, neutrophils 86.4%, sodium 125, chloride of 83, carbon oxide 34, blood glucose 137, total bilirubin 1.5, troponin 0.09, BNP of 8710. Hospital Course Hospital Course Hospital Course: This is a 74-year-old male who has a past medical history significant for exposure to agent orange, bundle branch block, coronary artery disease, chronic hypoxic hypercapnic respiratory failure, hyperlipidemia, hypertension, diastolic dysfunction, hyponatremia, atrial fibrillation, bilateral carotid artery stenosis, and cardiomyopathy who presents with a chief complaint of left-sided chest pain next to the ribs. Patient treated for pneumonia and CHF exacerbation with NSTEMI. Cardiology and pulmonology assisted with care. Showed improvement during admission. Stable to discharge home with further management as an outpatient. Problems addressed as follows: #Acute on chronic hypoxic respiratory failure, resolved #Acute hypercapnic respiratory failure, resolved #Community-acquired pneumonia #Reactive airway disease ? Initial VBG showing hypercapnic respiratory failure, improved with BiPAP. Has not needed BiPAP since day 2 of admission. Weaned to nasal cannula oxygen and then gradually weaned to room air with stability and saturations above 90%. CTA chest revealed bilateral pneumonia. Received 5-day course of ceftriaxone, azithromycin, Solu-Medrol. Sputum culture normal philip. White count remained stable at 12. No signs of further infection. Continue DuoNebs as needed. Remains on room air with saturations greater 90%. Pulmonology assisted with care, recommend switching from Advair to Trelegy 100 inhaler. #Chest pain #NSTEMI type II #HFrEF #Severe right heart failure, cor pulmonale #History of NSTEMI with stent to RCA ? ECHO reveals LVEF 20 to 25%, G2 DD, severe reduction in RV function, moderate AAS, RVSP 50 to 55 mmHg. Initial BNP 8710 troponin 0.13. Cardiology consulted, initially started dobutamine and Levophed for suspected early cardiogenic shock. These were weaned and patient was transitioned to goal-directed therapy for heart failure. 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 Likely explains, pulmonology pathology. Continue diuretics during admission. Negative over 8 L since admission. Will continue Lasix 40 mg daily. Left heart cath performed during admission without significant occlusive disease. No stents were placed. Blood pressures remain somewhat soft but acceptable during admission. 104/49 on morning of discharge. Will continue Lipitor 40 mg nightly, aspirin 81 mg daily, Eliquis 5 mg twice daily, metoprolol succinate 25 mg daily. Recommend close follow-up with cardiology for further management. Due to his severe heart failure, LifeVest was placed on morning of discharge. #Chronic hyponatremia ? Sodium remained low during admission. 127 on morning of discharge. Appears to be nutritional as his urine sodium was low (less than 20). Initiated on salt tabs 1000 mg twice daily. Continue at discharge Total time spent on discharge 32 minutes in counseling, documentation, chart review, and direct care with patient. Exam Data for Last 24 hours Vital signs and Labs for Last 24 Hours: Temp Pulse Resp BP Pulse Ox O2 Del Method O2 Flow Rate 98.6 F 73 22 120/52 L 94 L Room Air 2 09/05/24 08:00 09/05/24 08:02 09/05/24 08:02 09/05/24 08:02 09/05/24 08:02 09/05/24 08:02 09/04/24 16:20 FiO2 25 08/31/24 22:06 Laboratory Results - last 24 hr 09/01/24 12:38: Urine Osmolality 315 09/04/24 05:30: C-Reactive Protein 18.0 H D, Procalcitonin 0.069 09/04/24 12:00: Sodium 126 L, Potassium 3.7, Chloride 83 L, Carbon Dioxide 41 H*, Anion Gap 5.7, BUN 17, Creatinine 0.70 D, Estimated Creat Clear 54, Estimated GFR 110, Est GFR ( Amer) 133 D, Glucose 88, Calcium 8.2 L 09/05/24 05:26: WBC 12.1 H, RBC 4.27 L, Hgb 12.6 L, Hct 39.0 L, MCV 91.3, MCH 29.5, MCHC 32.3, RDW 13.0, Plt Count 301, MPV 9.1, Neut % (Auto) 76.7, Lymph % (Auto) 14.3, [place] % (Auto) 6.3, Eos % (Auto) 1.3, Baso % (Auto) 0.3, Neut # (Auto) 9.3 H, Lymph # (Auto) 1.7, [place] # (Auto) 0.8, Eos # (Auto) 0.2, Baso # (Auto) 0.0, Sodium 127 L, Potassium 3.8, Chloride 87 L, Carbon Dioxide 33 H, Anion Gap 10.8, BUN 27 H D, Creatinine 0.60 L, Estimated Creat Clear 54, Estimated GFR 132, Est GFR ( Amer) 159, Glucose 85, Calcium 7.9 L, Magnesium 1.9, Total Bilirubin 0.3 09/05/24 05:26: Total Bilirubin 0.2, Direct Bilirubin 0.1, Conjugated Bilirubin 0.0, Indirect Bilirubin 0.1, Unconjugated Bilirubin 0.1, AST 26 09/05/24 05:26: AST 25, ALT 19 09/05/24 05:26: ALT 18, Alkaline Phosphatase 51 09/05/24 05:26: Alkaline Phosphatase 52, C-Reactive Protein 10.7 H D, Total Protein 5.2 L 09/05/24 05:26: Total Protein 4.9 L, Albumin 3.0 L 09/05/24 05:26: Albumin 2.9 L, Globulin 2.2, Albumin/Globulin Ratio 1.4, Triglycerides 87, Cholesterol 102 L, LDL Cholesterol Direct 37.11 L, VLDL Cholesterol 17, HDL Cholesterol 45, Cholesterol/HDL Ratio 2.3, Procalcitonin 0.069 I & O for Last 24 hours: Intake & Output 09/02/24 09/03/24 09/04/24 09/05/24 23:59 23:59 23:59 23:59 Intake Total 1680.894 / 3388.612 9908 / 1740 778.581 / 2494.095 7648 / 1040 Output Total 5000 / 5100 2325 / 2325 1625 / 1625 350 / 350 Balance -3319.106 / -3419.106 -585 / -585 -846.419 / -346.419 690 / 690 Weight 59.874 kg 58.7 kg 59.3 kg 59.3 kg Microbiology Reports for the Last 24 Hours: Microbiology 08/30/24 17:38 Blood Blood Culture - Final NO GROWTH AFTER 5 DAYS 08/30/24 17:38 Blood Blood Culture - Final NO GROWTH AFTER 5 DAYS Constitutional Constitutional: no acute distress, thin and chronically ill appearing *Routine HEENT Exam Head: Present normocephalic Eye: Present EOMI and PERRL ENT: Present mucous membranes moist *Routine Neck Exam Neck: Present supple; Absent lymphadenopathy Routine Chest/Breast/Axilla Exam Chest wall: Absent tenderness *Routine Respiratory Exam Respiratory: Present prolonged expiratory phase and crackles (Improving); Absent rhonchi or wheezes *Routine Cardiovascular Exam Cardiovascular: Present RRR *Routine Abdominal Exam Abdominal: Present soft and normoactive bowel sounds; Absent tenderness *Routine Rectal Exam Patient deferred: visual exam *Routine Exam Patient deferred: penile exam *Routine Extremities Exam Extremities: Absent cyanosis, clubbing or edema *Routine Skin Exam Skin: Present warm; Absent rash *Routine Neurological Exam Neurological: Present alert, oriented X3, CN II-XII intact and moving all extremities; Absent altered mental status Results Data Completed and Pending Labs on day of discharge: Labs from last 24 hours 09/05/24 09/05/24 09/05/24 05:26 05:26 05:26 WBC RBC Hgb Hct MCV MCH MCHC RDW Plt Count MPV Neut % (Auto) Lymph % (Auto) [place] % (Auto) Eos % (Auto) Baso % (Auto) Neut # (Auto) Lymph # (Auto) [place] # (Auto) Eos # (Auto) Baso # (Auto) Sodium Potassium Chloride Carbon Dioxide Anion Gap BUN Creatinine Estimated Creat Clear Estimated GFR Est GFR ( Amer) Glucose Calcium Magnesium Total Bilirubin Direct Bilirubin Conjugated Bilirubin Indirect Bilirubin Unconjugated Bilirubin AST ALT Alkaline Phosphatase 52 C-Reactive Protein 10.7 H D Total Protein 4.9 L 5.2 L Albumin 2.9 L 3.0 L Globulin 2.2 Albumin/Globulin Ratio 1.4 Triglycerides 87 Cholesterol 102 L LDL Cholesterol Direct 37.11 L VLDL Cholesterol 17 HDL Cholesterol 45 Cholesterol/HDL Ratio 2.3 Procalcitonin 0.069 Urine Osmolality 09/05/24 09/05/24 09/05/24 05:26 05:26 05:26 WBC RBC Hgb Hct MCV MCH MCHC RDW Plt Count MPV Neut % (Auto) Lymph % (Auto) [place] % (Auto) Eos % (Auto) Baso % (Auto) Neut # (Auto) Lymph # (Auto) [place] # (Auto) Eos # (Auto) Baso # (Auto) Sodium Potassium Chloride Carbon Dioxide Anion Gap BUN Creatinine Estimated Creat Clear Estimated GFR Est GFR ( Amer) Glucose Calcium Magnesium Total Bilirubin 0.2 Direct Bilirubin 0.1 Conjugated Bilirubin 0.0 Indirect Bilirubin 0.1 Unconjugated Bilirubin 0.1 AST 25 26 ALT 18 19 Alkaline Phosphatase 51 C-Reactive Protein Total Protein Albumin Globulin Albumin/Globulin Ratio Triglycerides Cholesterol LDL Cholesterol Direct VLDL Cholesterol HDL Cholesterol Cholesterol/HDL Ratio Procalcitonin Urine Osmolality 09/05/24 09/04/24 09/04/24 05:26 12:00 05:30 WBC 12.1 H RBC 4.27 L Hgb 12.6 L Hct 39.0 L MCV 91.3 MCH 29.5 MCHC 32.3 RDW 13.0 Plt Count 301 MPV 9.1 Neut % (Auto) 76.7 Lymph % (Auto) 14.3 [place] % (Auto) 6.3 Eos % (Auto) 1.3 Baso % (Auto) 0.3 Neut # (Auto) 9.3 H Lymph # (Auto) 1.7 [place] # (Auto) 0.8 Eos # (Auto) 0.2 Baso # (Auto) 0.0 Sodium 127 L 126 L Potassium 3.8 3.7 Chloride 87 L 83 L Carbon Dioxide 33 H 41 H* Anion Gap 10.8 5.7 BUN 27 H D 17 Creatinine 0.60 L 0.70 D Estimated Creat Clear 54 54 Estimated GFR 132 110 Est GFR ( Amer) 159 133 D Glucose 85 88 Calcium 7.9 L 8.2 L Magnesium 1.9 Total Bilirubin 0.3 Direct Bilirubin Conjugated Bilirubin Indirect Bilirubin Unconjugated Bilirubin AST ALT Alkaline Phosphatase C-Reactive Protein 18.0 H D Total Protein Albumin Globulin Albumin/Globulin Ratio Triglycerides Cholesterol LDL Cholesterol Direct VLDL Cholesterol HDL Cholesterol Cholesterol/HDL Ratio Procalcitonin 0.069 Urine Osmolality 09/01/24 12:38 WBC RBC Hgb Hct MCV MCH MCHC RDW Plt Count MPV Neut % (Auto) Lymph % (Auto) [place] % (Auto) Eos % (Auto) Baso % (Auto) Neut # (Auto) Lymph # (Auto) [place] # (Auto) Eos # (Auto) Baso # (Auto) Sodium Potassium Chloride Carbon Dioxide Anion Gap BUN Creatinine Estimated Creat Clear Estimated GFR Est GFR ( Amer) Glucose Calcium Magnesium Total Bilirubin Direct Bilirubin Conjugated Bilirubin Indirect Bilirubin Unconjugated Bilirubin AST ALT Alkaline Phosphatase C-Reactive Protein Total Protein Albumin Globulin Albumin/Globulin Ratio Triglycerides Cholesterol LDL Cholesterol Direct VLDL Cholesterol HDL Cholesterol Cholesterol/HDL Ratio Procalcitonin Urine Osmolality 315 DS: Diagnosis Discharge Diagnosis (1) HFrEF (heart failure with reduced ejection fraction): Status: Acute Code(s): I50.20 - Unspecified systolic (congestive) heart failure Meds Home Medications and Allergies Home Medications ?Medication ?Instructions ?Recorded ?Confirmed ?Type aspirin 81 mg tablet,delayed 81 mg PO DAILY 12/19/21 08/30/24 History release albuterol sulfate 90 mcg/actuation 2 puff inhalation Q4H PRN 10/22/22 08/30/24 History aerosol inhaler Shortness of air apixaban 5 mg tablet 5 mg PO BID 10/22/22 08/30/24 History atorvastatin 40 mg tablet 40 mg PO HS 30 days #30 tabs 09/05/24 Rx fluticasone fur. 100 mcg-umeclid 1 inh inhalation DAILY 30 days #60 09/05/24 Rx 62.5 mcg-vilant 25 mcg ea inhalat.powder (Trelegy Ellipta) furosemide 40 mg tablet 40 mg PO DAILY 30 days #30 tabs 09/05/24 Rx metoprolol succinate 25 mg 25 mg PO DAILY 30 days #30 tabs 09/05/24 Rx tablet,extended release 24 hr sodium chloride 1,000 mg soluble 1,000 mg PO BID 30 days #60 tabs 09/05/24 Rx tablet New Prescriptions to Start Prescriptions: atorvastatin Yue,Macario [id number] [Trelegy Ellipta] Yue,Macario furosemide Yue,Macario metoprolol succinate Yue,Macario sodium chloride Yue,Macario Allergies Allergy/AdvReac Type Severity Reaction Status Date / Time No Known Allergies Allergy Verified 08/30/24 15:23 Discharge Plan Disposition Patient Disposition: Home, Self-Care Condition: Good Discharge Order Discharge Orders: Discharge Order (Routine); Ordered 09/05/24 Ordered By: Macario Turner Follow up Plan Follow up with: Provider,Mt, [Primary Care Provider] - Enter time for follow up Saeid Argueta MD [Physician] - 10/04/24 1:00 pm Carlo Cerrato MD [Staff Physician] - 09/21/24 1:30 pm Prescriptions/Medication Reconciliation: New atorvastatin 40 mg Tablet 40 mg PO HS 30 Days Qty: 30 0RF Trelegy Ellipta 100-62.5-25 mcg Blister With Device 1 inh inhalation DAILY 30 Days Qty: 60 0RF furosemide 40 mg Tablet 40 mg PO DAILY 30 Days Qty: 30 0RF metoprolol succinate 25 mg Tablet Extended Release 24 Hr 25 mg PO DAILY 30 Days Qty: 30 0RF sodium chloride 1,000 mg Tablet,Soluble 1,000 mg PO BID 30 Days Qty: 60 0RF Continued albuterol sulfate 90 mcg/actuation Hfa Aerosol Inhaler 2 puff INHALATION Q4H PRN (Reason: Shortness of air) apixaban 5 mg Tablet 5 mg PO BID aspirin 81 MG tablet,delayed release (DR/EC) 81 mg PO DAILY Discontinued amlodipine [Norvasc] 5 mg Tablet 5 mg PO DAILY Problem Reconciliation Problems Reviewed?: Yes Patient Discharge Instructions ACTIVITY: Continue current activity DIET: continue same diet Patient Instructions: DI for Heart Failure, DI for Sepsis -- Adult, DI for Respiratory Failure Print Language: [place] Providers Primary Care Provider: Provider,Referral Admit Provider: Ashok Bhatt Attending Provider: Ashok Bhatt
[2024-09-05 09:14] LABS: Erythrocyte Sedimentation Rate 10 mm/hr (0-20)
--- NOTE | 2024-09-05 10:15 | CA_ITS ---
APPROVED REPORT EXAM: Limited 2D Echocardiogram with contrast Jacquard Loom Card Changer: Gisella Hernández CRT Ht: 5 ft 10 in Wt: 130lbs BSA: 1.74 BP: 110/50 mmHg Indications: EF CHECK Echo Enhancing Agent Indication: Endocardial border delineation Agent(s) / Amount(s) Used: Definity 2 cc 2D Dimensions EF AP4 14.00 % GL Strain -4.8 % M-Mode Dimensions RVDd 3.01 cm (0.9-2.6) LVDd 4.17 cm (3.5-5.7) LVDs 3.45 cm (3.5-5.7) IVSd 1.13 cm (0.6-1.1) PWd 0.72 cm (0.6-1.1) EF (Teich) 36.50% FS 17.30% EDV (Teich) 77.30 mL ESV (Teich) 49.10 mL Other Information Study Quality: Fair Conclusion This is a limited TTE to evaluate for LV systolic function. Limited windows are obtained. Ultrasound enhancing agent is administered. The left ventricle is normal in size. There is increased LV wall thickness. There is moderate to severe global hypokinesis present. 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 LVEF is 30%. There is no evidence of apical LV thrombus. Electronically signed by : Yary Cerrato MD 09/05/2024 11:45:59
[2024-09-05] MEDS: DEFINITY US ECHO CONTRAST 2ML INJ 2 MG IV (11:38)
--- NOTE | 2024-09-05 12:50 | HMH.PTEV ---
Physical Therapy Evaluation Rehab PT IP Evaluation Start: 09/05/24 07:48 Freq: ONCE Status: Active Protocol: Document 09/05/24 11:00 REMINGTON (Rec: 09/05/24 12:50 PHOJAEL [id number]) Subjective/History History History 74-year-old male who has a past medical history significant for exposure to agent orange, bundle branch block, coronary artery disease , chronic hypoxic hypercapnic respiratory failure, hyperlipidemia, hypertension, diastolic dysfunction, hyponatremia, atrial fibrillation, bilateral carotid artery stenosis, and cardiomyopathy who presents with a chief complaint of left -sided chest pain next to the ribs. He reports he lives with family, no ZAHRA the home, and he is generally independent with all ambulation at baseline without AD, but he does have a WRW available if necessary. Subjective Subjective He reports feeling better overall, but that he continues to get lightheaded and SOA with mild exertion. [facility] How much help from another person do you currently need... Turning from your back to your side None while in a flat bed without using bedrails? Moving from lying on back to sitting on None the side of a flat bed without using bedrails? Moving to and from a bed to a chair ( None including a wheelchair)? Standing up from a chair using your arms None ? (e.g., wheelchair, bedside chair) Walking in hospital room? None Climbing 3-5 steps with a railing? A little Mobility Score 23 Mobility Level [facility] Mobility Calculator Mobility 7 Walk 25 feet or more Rehab PT IP Eval Objective Appearance Patient Behavior Appropriate Patient Orientation Person,Place,Time Difficulty following instructions none Speech Pattern Clear Ambulation Patient Able to Ambulate Yes Ambulation Observation IP General Gait Pattern Observation No Deviations/Normal Ambulation Distance (feet) 40 Ambulation Assistive Device None Ambulation Ability Supervision/Stand by Balance Ability to Arise Able, uses arms to help Sitting Balance Steady, safe Standing Balance Steady, wide stance Dynamic Sitting Balance Ability Good Dynamic Standing Balance Ability Fair Transfers Bed Transfer Ability Supervision/Stand by Chair Transfer Ability Supervision/Stand by Sit to Stand Bed Transfer Ability Supervision/Stand by Sit to Stand Chair Transfer Ability Supervision/Stand by Rehab PT IP prob,goals,plan Problems Date of Evaluation: 09/05/24 Discharge Plan PT Discharge Plan Currently, pt is appropriate to return home once medically stable for d/c. Recommend home health vs outpatient cardiac rehab as able to improve endurance to all activity. No current inpatient therapy needs at this time. Eval Complexity Eval Charge Codes 85927 - High Complexity PHYSICIAN CERTIFICATION: I certify the specified therapy services for Archie Mosher are required, authorized, and reviewed every 30 days.
--- NOTE | 2024-09-05 13:04 | SW/DCPLANNER ---
Spoke with patient about having home health services coming in to his home and patient stated that he feels he doesnt need their services at this time. Patient stated that his is there to help out with him. Olesya Green
--- NOTE | 2024-09-05 13:55 | P.PN_ITS ---
Subjective Subjective Date: 09/05/24 Time: 10:00 Principal diagnosis: HFrEF, cardiomyopathy Interval history: This is a 74-year-old gentleman who was admitted to the hospital with acute HFrEF and a non-STEMI. Patient was diuresed with IV diuretics. He is feeling much better. He underwent left cardiac catheterization yesterday and was found to have severe one-vessel disease with 100% proximal in-stent restenosis to the right coronary artery. He had brisk [id number] collaterals filling the distal right coronary artery up to the stented area. He had a patent stent to the proximal first diagonal branch. Mild to moderate diffuse coronary artery disease. No intervention required. This morning he denies any chest pain or pressure. He denies any shortness of breath or edema. He denies any fever, chills, nausea, vomiting, diarrhea, PND orthopnea. He states he is ready to be discharged home. Exam Data for Last 24 hours Vital signs and Labs for Last 24 Hours: Temp Pulse Resp BP Pulse Ox O2 Del Method O2 Flow Rate 98.6 F 81 24 99/48 L 95 Room Air 2 09/05/24 08:00 09/05/24 13:00 09/05/24 13:00 09/05/24 13:00 09/05/24 13:00 09/05/24 13:00 09/05/24 09:01 FiO2 25 08/31/24 22:06 Laboratory Results - last 24 hr 09/01/24 12:38: Urine Osmolality 315 09/05/24 05:26: WBC 12.1 H, RBC 4.27 L, Hgb 12.6 L, Hct 39.0 L, MCV 91.3, MCH 29.5, MCHC 32.3, RDW 13.0, Plt Count 301, MPV 9.1, Neut % (Auto) 76.7, Lymph % (Auto) 14.3, Baldwin % (Auto) 6.3, Eos % (Auto) 1.3, Baso % (Auto) 0.3, Neut # (Auto) 9.3 H, Lymph # (Auto) 1.7, Baldwin # (Auto) 0.8, Eos # (Auto) 0.2, Baso # (Auto) 0.0, ESR 10, Sodium 127 L, Potassium 3.8, Chloride 87 L, Carbon Dioxide 33 H, Anion Gap 10.8, BUN 27 H D, Creatinine 0.60 L, Estimated Creat Clear 54, Estimated GFR 132, Est GFR ( Amer) 159, Glucose 85, Calcium 7.9 L, Magnesium 1.9, Total Bilirubin 0.3 09/05/24 05:26: Total Bilirubin 0.2, Direct Bilirubin 0.1, Conjugated Bilirubin 0.0, Indirect Bilirubin 0.1, Unconjugated Bilirubin 0.1, AST 26 09/05/24 05:26: AST 25, ALT 19 09/05/24 05:26: ALT 18, Alkaline Phosphatase 51 09/05/24 05:26: Alkaline Phosphatase 52, C-Reactive Protein 10.7 H D, Total Protein 5.2 L 09/05/24 05:26: Total Protein 4.9 L, Albumin 3.0 L 09/05/24 05:: Albumin 2.9 L, Globulin 2.2, Albumin/Globulin Ratio 1.4, Triglycerides 87, Cholesterol 102 L, LDL Cholesterol Direct 37.11 L, VLDL Cholesterol 17, HDL Cholesterol 45, Cholesterol/HDL Ratio 2.3, Procalcitonin 0.069 I & O for Last 24 hours: Intake & Output 09/02/24 09/03/24 09/04/24 09/05/24 23:59 23:59 23:59 23:59 Intake Total 1680.894 / 3645.615 3564 / 1740 778.581 / 5815.356 5941 / 1640 Output Total 5000 / 5100 2325 / 2325 1625 / 1625 1300 / 1300 Balance -3319.106 / -3419.106 -585 / -585 -846.419 / -346.419 340 / 340 Weight 132 lb 129 lb 6.581 oz 130 lb 11.746 oz 130 lb 11.746 oz Microbiology Reports for the Last 24 Hours: Microbiology 08/30/24 17:38 Blood Blood Culture - Final NO GROWTH AFTER 5 DAYS 08/30/24 17:38 Blood Blood Culture - Final NO GROWTH AFTER 5 DAYS Constitutional Constitutional: no acute distress and thin *Routine HEENT Exam Head: Present normocephalic *Routine Neck Exam Neck: Present supple and full ROM *Routine Respiratory Exam Respiratory: Present decreased breath sounds; Absent wheezes *Routine Cardiovascular Exam Cardiovascular: Present RRR, Normal S1 and Normal S2 *Routine Abdominal Exam Abdominal: Present soft and normoactive bowel sounds *Routine Extremities Exam Extremities: Present full ROM; Absent cyanosis, clubbing or edema *Routine Skin Exam Skin: Present intact; Absent cyanosis *Routine Neurological Exam Neurological: Present alert and oriented X3 Routine Psychiatric Exam Psychiatric: Present normal affect and cooperative Progress Note: A&P Assessment and plan (1) HFrEF (heart failure with reduced ejection fraction): Status: Acute (2) Sepsis: Status: Acute (3) Non-ST elevation OR (NSTEMI): Status: Acute (4) Coronary artery disease: Status: Chronic (5) HLD (hyperlipidemia): Status: Chronic (6) COPD (chronic obstructive pulmonary disease) with acute bronchitis: Status: Acute (7) Atrial fibrillation: Status: Acute (8) Bilateral carotid artery stenosis: Status: Chronic (9) Cardiomyopathy: Status: Resolved (10) Hyponatremia: Status: Acute Assessment and Plan Assessment and Plan for All Diagnoses:: Plan: 1. The patient was admitted to the hospital with bilateral lower lobe pneumonia and sepsis as well as respiratory failure. The patient is on IV antibiotics. Will defer to pulmonology and the hospitalist. 2. The patient had an elevated troponin consistent with a non-STEMI. He underwent left cardiac catheterization yesterday and was found to have severe 100% stenosis to the right coronary artery but did fill via [id number] collaterals to the right coronary artery. No percutaneous intervention was needed. We do recommend aspirin 81 mg daily. 3. His blood pressure is well-controlled. He is off of all pressors. 4. Continue Toprol for the non-STEMI and HFrEF. 5. Due to his marginal blood pressure we cannot add Entresto/QUENTIN/ARB at this time. Will try to get this started on an outpatient basis once his blood pressure improves more. 6. Once his blood pressure is more stable on an outpatient basis, we will also consider Jardiance for his HFrEF as an outpatient. 7. The patient does have severe LV dysfunction. His ejection fraction is 20 to 25%. He is at increased risk for sudden cardiac . Due to his increased risk for sudden cardiac the patient will need a LifeVest in place prior to discharge home. He has been fitted for his LifeVest today. 8. His LDL goal is less than 55. His LDL is 37. He is on a statin. 9. The patient does have paroxysmal atrial fibrillation. He is on Eliquis for anticoagulation. 10. Ejection fraction did peer somewhat higher on left cardiac catheterization at 35 to 40%. Will repeat a limited echocardiogram today to see if he will need a LifeVest at discharge. Preliminary limited echocardiogram shows an ejection fraction of 30% so LifeVest was fitted today. 11. No further recommendations at this time from a cardiac standpoint. The patient can be discharged home today from a cardiac standpoint with his LifeVest in place. He will need to follow-up in cardiology clinic in 1 week on an outpatient basis. 12. The patient can be discharged on the following cardiac medications: Aspirin 81 mg daily, Lipitor 40 mg p.o. nightly, Lasix 40 mg p.o. daily, metoprolol succinate 25 mg p.o. daily and Eliquis 5 mg p.o. twice daily. Thank you for the opportunity to help participate in the care of this patient. All recommendations and orders are per Dr. Cerrato.
--- NOTE | 2024-09-07 11:07 | SW/DCPLANNER ---
Phoned patient x2. No answer each time. Left a message with call back number and name. Olesya Green
== END 2024-09-05 16:45 | disposition home or self-care (01) | DRG 189 ==
LOC: ER 17:46 → 2ND 18:16 → ICU 08-31 01:18
PROVIDERS: Internal Medicine; Internal Medicine Cardiovascular Disease; Internal Medicine Pulmonary Disease; Nurse Practitioner Family; Admitting Provider Student in an Organized Health Care Education/Training Program; Emergency Provider Emergency Medicine; Visit Provider Student in an Organized Health Care Education/Training Program
DX: J96.21 Acute and chronic respiratory failure with hypoxia (principal); I21.4 Non-ST elevation (NSTEMI) myocardial infarction; I50.21 Acute systolic (congestive) heart failure; J18.9 Pneumonia, unspecified organism; T82.855A Stenosis of coronary artery stent, initial encounter; E87.1 Hypo-osmolality and hyponatremia; J44.0 Chronic obstructive pulmonary disease with (acute) lower respiratory infection; J96.02 Acute respiratory failure with hypercapnia; Z95.5 Presence of coronary angioplasty implant and graft; I25.5 Ischemic cardiomyopathy; I25.10 Atherosclerotic heart disease of native coronary artery without angina pectoris; I11.0 Hypertensive heart disease with heart failure; I65.23 Occlusion and stenosis of bilateral carotid arteries; Z77.098 Contact with and (suspected) exposure to other hazardous, chiefly nonmedicinal, chemicals; Y83.1 Surgical operation with implant of artificial internal device as the cause of abnormal reaction of the patient, or of later complication, without mention of misadventure at the time of the procedure; I27.81 Cor pulmonale (chronic); J84.10 Pulmonary fibrosis, unspecified; I45.4 Nonspecific intraventricular block; I50.811 Acute right heart failure; Z79.51 Long term (current) use of inhaled steroids; Z79.899 Other long term (current) drug therapy; Z79.82 Long term (current) use of aspirin; Z80.0 Family history of malignant neoplasm of digestive organs; Z91.85 Personal history of military service
CPT/HCPCS: 36415; 71045; 71275; 80048; 80053; 80061; 80076; 81001; 82247; 82803; 83605; 83735; 83880; 83930; 83935; 84145; 84484; 84540; 85007; 85025; 85651; 86140; 87040; 87070; 87081; 87205; 87633; 87636; 93005; 93306; 93308; 93458; 94640; 94660; 94761; 97163; 97165; 99152; 99291; C1725; C1760; C1769; G0378; J0456; J0696; J1200; J1250; J1644; J1650; J1940; J2250; J2270; J2405; J2919; J3010; J3475; J7030; J7050; J7120; J7614; J7620; Q9957; Q9967

== ENCOUNTER 2024-09-15 21:54 | Observation (INO) | payer MEDICARE, OTHER, SELFPAY ==
--- NOTE | 2024-09-15 22:05 | PC.NURSE ---
1002 [place] relief charge nurse notified of patient's BP 89/51 (Map 63) and o2 sat of 88-90%. Triage assessment bypassed and patient taken to room 4
--- NOTE | 2024-09-15 22:07 | PC.NURSE ---
1004 Marianna DUMONT notified of patient status.
--- NOTE | 2024-09-15 22:08 | ECG_ITS ---
APPROVED REPORT Exam: Resting ECG HR:87 bpm ECG Measurements Heart Rate 87 AXES TX 179 P 64 QRSd 144 QRS -25 QT 411 T 147 QTc [address] depressions and T wave inversions in lateral leads, as well as lead II. No reciprocal elevations. Left bundle branch block morphology Sgarbossa negative Electronically signed by : STEFANY SUMMERS, 09/16/2024 20:42:07
--- NOTE | 2024-09-15 22:14 | XR_ITS ---
PROCEDURE INFORMATION: Exam: XR Chest Exam date and time: 09/15/2024 10:20 PM Age: 74 years old Clinical indication: Other: Near syncope; Additional info: Lightheaded, near syncope TECHNIQUE: Imaging protocol: Radiologic exam of the chest. Views: 1 view. COMPARISON: CR XR CHEST PORTABLE 08/31/2024 7:39 PM FINDINGS: Tubes, catheters and devices: Multiple monitoring devices overlie the patient. Lungs: Chronic diffuse peripheral interstitial lung disease. Pleural spaces: Unremarkable. No pleural effusion. No pneumothorax. Heart/Mediastinum: Unremarkable. No cardiomegaly. Vasculature: Unremarkable. Bones/joints: Unremarkable. IMPRESSION: No acute findings
[2024-09-15 22:15] VITALS: BP 123/64; PULSE 90; RESP 22; TEMP 36.8; O2SAT 85; BMI 20.9
[2024-09-15 22:21] LABS: Basophils # 0.1 K/mm3 (0-0.2); Basophils % 0.7 % (0.1-2.0); Eosinophils # 0.2 K/mm3 (0.0-0.4); Eosinophils % 1.8 % (0.1-12.0); Hemoglobin 11.7 g/dL (14.1-18.0); Lymphocytes # 1.7 K/mm3 (0.7-4.5); Lymphocytes % 20.7 % (10-50); Mean Corpuscular HGB Conc 32.5 g/dL (31.8-35.4); Mean Corpuscular Hemoglobin 29.4 pg (27.0-31.2); Mean Corpuscular Volume 90.5 fl (80-94); Mean Platelet Volume 9.3 fl (7.4-10.4); Monocytes # 0.6 K/mm3 (0.1-1.0); Neutrophils # 5.8 K/mm3 (1.8-7.8); Neutrophils % 69.1 % (37.0-80.0); Platelet Count 318 K/mm3 (142-424); Red Blood Count 3.98 M/mm3 (4.60-6.20); Red Cell Distribution Width 13.7 % (11.5-17.5); White Blood Count 8.3 K/mm3 (4.8-10.8)
--- NOTE | 2024-09-15 22:21 | ED_ITS ---
Discharge Plan Disposition Patient Disposition: Admitted Chief Complaint: Shortness of Breath/Dyspnea Prescriptions Prescriptions: No Action albuterol sulfate 90 mcg/actuation Hfa Aerosol Inhaler 2 puff INHALATION Q4H PRN (Reason: Shortness of air) apixaban 5 mg Tablet 5 mg PO BID aspirin 81 MG tablet,delayed release (DR/EC) 81 mg PO DAILY atorvastatin 40 mg Tablet 40 mg PO HS 30 Days Qty: 30 0RF Trelegy Ellipta 100-62.5-25 mcg Blister With Device 1 inh inhalation DAILY 30 Days Qty: 60 0RF furosemide 40 mg Tablet 40 mg PO DAILY 30 Days Qty: 30 0RF metoprolol succinate 25 mg Tablet Extended Release 24 Hr 25 mg PO DAILY 30 Days Qty: 30 0RF sodium chloride 1,000 mg Tablet,Soluble 1,000 mg PO BID 30 Days Qty: 60 0RF Referrals Follow up/Referrals: Provider,Referral, MD [Primary Care Provider] - See instructions Clinical Impressions Clinical Impression: Adult failure to thrive, Acute hypotension Print Language Print Language: [place] Islander Discharge ED Provider: Billy Cabral HPI General Stated Complaint: Unsteady on feet,BP 68/42,HR 34 Time Seen by Provider: 09/15/24 22:14 History of Present Illness HPI narrative: Please note that above description of symptoms, in this electronic medical record under categorization of recalled from ER triage doctor by RN are reflective of an initial nursing assessment, however, is not reflective of my full history and physical exam that was personally taken and clarified. Consequentially, this preceding description of symptoms, which may include the patient's categorized chief complaint in the EMR, do not reflect my personal clinical impression, and the ultimate description of history of present illness and patient stated complaints should be deferred to this section of the note. Unless stated otherwise or congruent with this section of the note, additional signs, symptoms, or incongruence should be interpreted as inaccurate with my clinical impression. Related Data Home Medications ?Medication ?Instructions ?Recorded ?Confirmed aspirin 81 mg tablet,delayed 81 mg PO DAILY 12/19/21 08/30/24 release albuterol sulfate 90 mcg/actuation 2 puff inhalation Q4H PRN 10/22/22 08/30/24 aerosol inhaler Shortness of air apixaban 5 mg tablet 5 mg PO BID 10/22/22 08/30/24 Previous Rx's ?Medication ?Instructions ?Recorded atorvastatin 40 mg tablet 40 mg PO HS 30 days #30 tabs 09/05/24 fluticasone fur. 100 mcg-umeclid 1 inh inhalation DAILY 30 days #60 09/05/24 62.5 mcg-vilant 25 mcg ea inhalat.powder (Trelegy Ellipta) furosemide 40 mg tablet 40 mg PO DAILY 30 days #30 tabs 09/05/24 metoprolol succinate 25 mg 25 mg PO DAILY 30 days #30 tabs 09/05/24 tablet,extended release 24 hr sodium chloride 1,000 mg soluble 1,000 mg PO BID 30 days #60 tabs 09/05/24 tablet Allergies Allergy/AdvReac Type Severity Reaction Status Date / Time No Known Allergies Allergy Verified 08/30/24 15:23 [facility] Disclaimer: The information contained in this section may have been updated after the patient was seen, as this information can be updated by other users. Medical History (Updated 09/15/24 @ 23:15 by Billy Cabral MD) Atrial fibrillation Hyponatremia COPD (chronic obstructive pulmonary disease) with acute bronchitis Sepsis HFrEF (heart failure with reduced ejection fraction) Pneumonia Non-ST elevation AR (NSTEMI) Coronary artery disease Diastolic dysfunction HLD (hyperlipidemia) Hypertension Pulmonary emphysema Fibrosis of lung COPD exacerbation Dyspnea on exertion Bilateral carotid artery stenosis Swelling of right upper extremity Cardiomyopathy Surgical History H/O hernia repair Family History Other Colorectal cancer Social History Smoking Status: Former smoker alcohol intake: current alcohol intake frequency: holidays/special occasions only current occupational status: employed Travel in the last 8 weeks: None household members: spouse 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 [employer] caffeine: No Have you lived/traveled outside [place] in past 30 days?: No Contact w/someone who lives/traveled outside US past 30 days?: No Exposure to someone with infectious disease in past 14 days?: No Do you have a fever (greater than 100.4 F or 38 C)?: No Have you tested positive for COVID-19: No Exposed to someone with COVID-19 in past 14 days?: No Do you have a sore throat?: No Do you have a cough?: No Do you have any weakness?: Yes Do you have any diarrhea?: No Are you experiencing any unusual bleeding?: No Do you have any muscle aches/pain?: No Do you have any abdominal pain?: No Are you experiencing loss of taste or smell?: No Other Medical History Have you received the Flu Vaccine for this season: No Have you received the Pneumonia Vaccine: No ROS Obtained: Yes All systems reviewed & no additional complaints except as documented Physical Exam General General appearance: alert, in no apparent distress and other (Chronically ill, not acutely ill) Neck Neck exam: Present trachea midline Chest Chest inspection: Present normal inspection and symmetric chest wall rise Respiratory Respiratory exam: Present normal lung sounds bilaterally; Absent respiratory distress, wheezes, stridor, accessory muscle use or prolonged expiratory phase Cardiovascular Cardiovascular exam: Present regular rate, normal rhythm and other (Pulses equal and symmetric in upper and lower extremities. LifeVest in place) Extremities Exam Extremities exam: Absent edema Neurological Exam Neurological exam: Present alert, oriented X3 and CN II-XII intact Skin Skin exam: Present warm and dry; Absent cyanosis, diaphoresis or pallor HEART Score HEART Score HEART Score assessment performed?: Yes HEART Score: 5 Critical Care Critical Care Time Critical Care Time: No Medical Decision Making Medical Records Medical records reviewed: Yes I reviewed the patient's medical records. Maninder Inquiry Pt receiving controlled substance: No Maninder was queried for this patient: No Lab Data Labs: Lab Results 09/15/24 22:11: WBC 8.3, RBC 3.98 L, Hgb 11.7 L, Hct 36.0 L, MCV 90.5, MCH 29.4, MCHC 32.5, RDW 13.7, Plt Count 318, MPV 9.3, Neut % (Auto) 69.1, Lymph % (Auto) 20.7, Swain % (Auto) 7.0, Eos % (Auto) 1.8, Baso % (Auto) 0.7, Neut # (Auto) 5.8, Lymph # (Auto) 1.7, Swain # (Auto) 0.6, Eos # (Auto) 0.2, Baso # (Auto) 0.1, PT 10.8, INR 0.96, APTT 29.9, Sodium 129 L, Potassium 5.0, Chloride 96 L, Carbon Dioxide 29, Anion Gap 9.0, BUN 9, Creatinine 0.70, Estimated GFR 110, Est GFR ( Amer) 133, Glucose 102 H, Calcium 8.5, Magnesium 1.6, Total Bilirubin 0.6, AST 25, ALT 20, Alkaline Phosphatase 79, Troponin I 0.02, NT-Pro-B Natriuret Pep 8170 H, Total Protein 6.3 D, Albumin 3.7, Globulin 2.6, Albumin/Globulin Ratio 1.4, Acetone Level None detected 09/15/24 22:15: VBG pH 7.31, VBG pCO2 50.5, VBG pO2 65.9 H, VBG HCO3 25.0, VBG Total CO2 26.6, VBG O2 Saturation 90.8 H, VBG Base Excess -1.2, VBG Lactic Acid 1.4 09/15/24 22:11 09/15/24 22:11 Response Orders (Tests/Meds): ORDERS Category Date Time Status XR chest portable Stat Exams 09/15/24 22:14 Taken Acetone, Serum (Rapid) Stat Lab 09/15/24 22:11 Completed Complete Blood Count Auto Diff Stat Lab 09/15/24 22:11 Completed Comprehensive Metabolic Panel Stat Lab 09/15/24 22:11 Completed Magnesium Stat Lab 09/15/24 22:11 Completed NT Pro Brain Natriuretic Pep. Stat Lab 09/15/24 22:11 Completed PT INR [Prothrombin Time INR] Stat Lab 09/15/24 22:11 Completed PTT [Activated Partial Thrombo Time] Stat Lab 09/15/24 22:11 Completed Troponin I Q3H Lab 09/16/24 01:15 Ordered Troponin I Q3H Lab 09/16/24 04:15 Ordered Troponin I Stat Lab 09/15/24 22:11 Completed Blood Culture Stat Micro 09/15/24 22:15 Ordered Venous Blood Gas Stat RT 09/15/24 22:15 Completed MDM Narrative Medical Decision Narrative: 74-year-old male history of hypertension, hyperlipidemia, CAD, systolic heart failure, COPD on 3 L nasal cannula oxygen, paroxysmal A-fib on Eliquis, presenting with lightheadedness. Patient was recently seen in the hospital, catheterized, no stents were placed. States that he was sent home on oxygen. Also sent home on water pills and salt tabs. Tonight, patient states that he was feeling lightheaded, dizzy, nearly passed out. Was not doing anything particular when this happened. Denies chest pain, shortness of breath, nausea, vomiting, diaphoresis, neurologic deficits, or any other concerns. Did not fall or sustain any trauma. Family convinced him to come in. History was obtained via conversation with patient and family. On arrival, patient hemodynamically stable, alert, oriented x4, appropriate, GCS 15, moving all extremities spontaneously, pupils equal and reactive to light. Full physical exam performed and significant for chronically ill-appearing male no acute distress. Lungs are clear, but they are diminished in the bases. No evidence of wheezes. He is on 4 L nasal cannula saturating 96 to 100%. No lower extremity edema. Pulses equal and symmetric. Patient grossly neurologically intact with NIHSS 0. Ambulatory. He is hypotensive, but no murmurs gallops or rubs on cardiac auscultation and pulses equal and symmetric. LifeVest is in place. Differential includes overdiuresis, ACS, AR,CHF exacerbation, sepsis, metabolic abnormality, urologic abnormality, among others. Patient placed on continuous cardiac monitoring and continuous pulse ox with initial blood pressure 123/64, heart rate 80, saturation 97% on 4 L. Independent interpretation of EKG shows sinus rhythm 87 bpm with W[place] interval 179, QRS 144, QTc 455. Leftward axis. Left bundle branch morphology that Sgarbossa negative, however patient does have suspicious T wave inversions in lateral and inferior leads with no reciprocal elevations. Actually appears improved from previous. Workup independently interpreted and significant for BNP improved to nearly 8000 from 24,000. Troponin negative. Sodium improving, CBC nonactionable. On independent interpretation of imaging, chest x-ray improved from previous. See radiology read for full review of final results. On reevaluation, patient still appears weak, worn out. Given patient presentation, workup, history, this most likely represents failure to thrive, possibly overdiuresis. Blood culture sent, but antibiotics not started because patient does not have a white count, negative lactate, nontachycardic and intermittent hypotension. Also not having systemic signs or symptoms. Patient to be admitted for further monitoring and management in the setting of potential overdiuresis and generalized weakness. Owner Consulting Engineer disclaimer Much of this encounter note is an electronic bootmaker hand spoken language to printed text. Electronic bootmaker hand of the spoken language may permit errors. Although I have reviewed the note, some errors may still exist.
[2024-09-15 22:23] LABS: Albumin Level 3.7 g/dl (3.5-5.0); Chloride 96 mmol/L (98-107)
[2024-09-15 22:24] LABS: Sodium 129 mmol/L (136-145)
[2024-09-15 22:26] LABS: Alanine Aminotransferase 20 U/L (12-78); Alkaline Phosphatase 79 U/L (38-126); Aspartate Amino Transferase 25 U/L (17-59); Bilirubin,Total 0.6 mg/dl (0.2-1.3); Blood Urea Nitrogen 9 mg/dl (9-20); Carbon Dioxide 29 mmol/L (22.0-30.0); Estimated Glomerular Filt Rate 110 ml/min (>60); GFR (African American) 133 ML/MIN (>60)
[2024-09-15 22:26] LABS: Lactate Venous 1.4 mmol/L (0.4-2.0); VBG Base Excess -1.2 mmol/L (-2.4-2.3); VBG Oxygen Saturation 90.8 % (50-70); VBG PCO2 50.5 mmol/L (35-51); VBG PH 7.31 mmol/L (7.31-7.41); VBG PO2 65.9 mmol/L (28-40); VBG Total CO2 26.6 mmol/L (23-27)
[2024-09-15 22:27] LABS: Albumin/Globulin Ratio 1.4 (1.1-1.8); Calcium 8.5 mg/dl (8.4-10.2); Globulin 2.6 g/dL (1.3-3.2); Glucose 102 mg/dl (74-100); Magnesium 1.6 mg/dl (1.6-2.3); Total Protein,Serum 6.3 g/dl (6.3-8.2)
[2024-09-15 22:30] VITALS: BP 93/47; PULSE 81; RESP 18; O2SAT 99
[2024-09-15 22:31] LABS: Activated Partial Thrombo Time 29.9 seconds (22.8-30.6); INR 0.96 (0.9-1.1); Prothrombin Time 10.8 seconds (10.1-12.5)
[2024-09-15 22:36] LABS: NT Pro Brain Natriuretic Pep. 8170 pg/mL (0-125)
[2024-09-15 22:39] LABS: Troponin I 0.02 ng/ml (0.00-0.034)
[2024-09-15 23:06] LABS: Acetone, Serum (Rapid) None Detected (None Detect)
[2024-09-15 23:09] VITALS: BP 122/44; PULSE 83; RESP 16; O2SAT 97
[2024-09-15 23:30] VITALS: BP 97/48; PULSE 76; PULSE 80; RESP 14; O2SAT 100; O2SAT 98
--- NOTE | 2024-09-15 23:58 | PC.NURSE ---
report called to JOSEPH Eisenberg
[2024-09-16] VITALS (7 sets, daily range): BP systolic 97–131; BP diastolic 42–65; PULSE 66–100; RESP 14–18; TEMP 36.4–36.8; O2SAT 94–100; BMI 22.5
--- NOTE | 2024-09-16 00:08 | P.HP_ITS ---
<Statement entered by Ashok Bhatt MD - 09/18/24 19:50> Personally evaluated patient and agree with plan of care as outlined by the MANAGER ADULT. History of Present Illness *Admission Date: 09/16/24 *Reason for visit:: Worsening shortness of breath dyspnea with failure to thrive *History of present illness: Mr. Mosher is well-known to us here., He was recently released from the hospital. Had been home for about 10 days. Sudden onset of just weakness failure to thrive shortness of breath. He was just feeling terrible also looked bad for him family convinced him to come to the emergency room. Patient denies any nausea vomiting diarrhea or any type of viral illness symptoms. He notes he is supposed to take sodium chloride 1000 mg twice a day but has not been able to on a consistent basis because it makes him sick. On arrival to the emergency room blood pressure will vary from 120 systolic to 60 systolic. Examination of lung sounds and respiratory status by ER physician and myself I know significant distress wheezing or rhonchi noted. Cardiovascular veras he does have a LifeVest in place and he has no edema to the lower extremities. He remains on 3 L nasal cannula of oxygen for his COPD. Plan: Will patient patient in observation on continuous cardiac monitoring. Have him reevaluated by cardiology. Also have pharmacy look at if we can come up with 500 mg of sodium replacement or another regime that would not cause this much nausea. It does not appear that he is able to tolerate the 1000 mg dose. Also will have case management involved to evaluate whether he is able to have sufficient care at home or might need some type of rehabilitation in an inpatient facility. I have talked with him about that and he is third and oriented and expressed understanding of that. [facility] Disclaimer: The information contained in this section may have been updated after the patient was seen, as this information can be updated by other users. Medical History (Updated 09/16/24 @ 00:22 by Jose Angel Alves APRN) Congestive heart failure Hyponatremia Atrial fibrillation Hyponatremia COPD (chronic obstructive pulmonary disease) with acute bronchitis Sepsis HFrEF (heart failure with reduced ejection fraction) Pneumonia Non-ST elevation MT (NSTEMI) Coronary artery disease Diastolic dysfunction HLD (hyperlipidemia) Hypertension Pulmonary emphysema Fibrosis of lung COPD exacerbation Dyspnea on exertion Bilateral carotid artery stenosis Swelling of right upper extremity Cardiomyopathy Surgical History H/O hernia repair Family History Other Colorectal cancer Social History Smoking Status: Former smoker alcohol intake: current alcohol intake frequency: holidays/special occasions only current occupational status: employed Travel in the last 8 weeks: None household members: spouse 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 [employer] caffeine: No Have you lived/traveled outside US in past 30 days?: No Contact w/someone who lives/traveled outside US past 30 days?: No Exposure to someone with infectious disease in past 14 days?: No Do you have a fever (greater than 100.4 F or 38 C)?: No Have you tested positive for COVID-19: No Exposed to someone with COVID-19 in past 14 days?: No Do you have a sore throat?: No Do you have a cough?: No Do you have any weakness?: Yes Do you have any diarrhea?: No Are you experiencing any unusual bleeding?: No Do you have any muscle aches/pain?: No Do you have any abdominal pain?: No Are you experiencing loss of taste or smell?: No Other Medical History Have you received the Flu Vaccine for this season: No Have you received the Pneumonia Vaccine: No Review of Systems Review of Systems Review of systems:: pertinent systems reviewed and negative unless documented below Review of systems (narrative): Patient expresses that once he is sitting trying to get up is difficult that he just sits too much. That he is not able to take the sodium tablets on a regular basis because they make him nauseated Constitutional Constitutional: Reports as per HPI Eyes Eyes: Reports as per HPI ENT Ears, Nose, Mouth, and Throat: Reports as per HPI *Cardiovascular Cardiovascular: Reports as per HPI *Respiratory Respiratory: Reports as per HPI *Gastrointestinal Gastrointestinal: Reports as per HPI *Genitourinary Genitourinary: Reports as per HPI *Musculoskeletal Musculoskeletal: Reports as per HPI Integumentary/Breasts Skin/Breast: Reports as per HPI *Neurologic Neurologic: Reports as per HPI Psychiatric Psychiatric: Reports as per HPI Endocrine Endocrine: Reports as per HPI Hematologic/Lymphatic Hematologic/Lymphatic: Reports as per HPI Allergic/Immunologic Allergic/Immunologic: Reports as per HPI Meds Home Medications and Allergies Home Medications ?Medication ?Instructions ?Recorded ?Confirmed ?Type aspirin 81 mg tablet,delayed 81 mg PO DAILY 12/19/21 08/30/24 History release albuterol sulfate 90 mcg/actuation 2 puff inhalation Q4H PRN 10/22/22 08/30/24 History aerosol inhaler Shortness of air apixaban 5 mg tablet 5 mg PO BID 10/22/22 08/30/24 History atorvastatin 40 mg tablet 40 mg PO HS 30 days #30 tabs 09/05/24 Rx fluticasone fur. 100 mcg-umeclid 1 inh inhalation DAILY 30 days #60 09/05/24 Rx 62.5 mcg-vilant 25 mcg ea inhalat.powder (Trelegy Ellipta) furosemide 40 mg tablet 40 mg PO DAILY 30 days #30 tabs 09/05/24 Rx metoprolol succinate 25 mg 25 mg PO DAILY 30 days #30 tabs 09/05/24 Rx tablet,extended release 24 hr sodium chloride 1,000 mg soluble 1,000 mg PO BID 30 days #60 tabs 09/05/24 Rx tablet New Prescriptions to Start Prescriptions: Allergies Allergy/AdvReac Type Severity Reaction Status Date / Time No Known Allergies Allergy Verified 08/30/24 15:23 Exam Data for Last 24 hours Vital signs and Labs for Last 24 Hours: Temp Pulse Resp BP Pulse Ox O2 Del Method 98.3 F 90 22 123/64 85 L Room Air 09/15/24 22:15 09/15/24 22:15 09/15/24 22:15 09/15/24 22:15 09/15/24 22:15 09/15/24 22:15 Laboratory Results - last 24 hr 09/15/24 22:11: WBC 8.3, RBC 3.98 L, Hgb 11.7 L, Hct 36.0 L, MCV 90.5, MCH 29.4, MCHC 32.5, RDW 13.7, Plt Count 318, MPV 9.3, Neut % (Auto) 69.1, Lymph % (Auto) 20.7, [place] % (Auto) 7.0, Eos % (Auto) 1.8, Baso % (Auto) 0.7, Neut # (Auto) 5.8, Lymph # (Auto) 1.7, [place] # (Auto) 0.6, Eos # (Auto) 0.2, Baso # (Auto) 0.1, PT 10.8, INR 0.96, APTT 29.9, Sodium 129 L, Potassium 5.0, Chloride 96 L, Carbon Dioxide 29, Anion Gap 9.0, BUN 9, Creatinine 0.70, Estimated GFR 110, Est GFR ( Amer) 133, Glucose 102 H, Calcium 8.5, Magnesium 1.6, Total Bilirubin 0.6, AST 25, ALT 20, Alkaline Phosphatase 79, Troponin I 0.02, NT-Pro-B Natriuret Pep 8170 H, Total Protein 6.3 D, Albumin 3.7, Globulin 2.6, Albumin/Globulin Ratio 1.4, Acetone Level None detected 09/15/24 22:15: VBG pH 7.31, VBG pCO2 50.5, VBG pO2 65.9 H, VBG HCO3 25.0, VBG Total CO2 26.6, VBG O2 Saturation 90.8 H, VBG Base Excess -1.2, VBG Lactic Acid 1.4 I & O for Last 24 hours: Intake & Output 09/13/24 09/14/24 09/15/24 09/16/24 05:59 05:59 05:59 05:59 Weight 130 lb Radiology Reports for the Last 24 Hours: Chest x-ray found no acute changes Constitutional Constitutional: mild distress, thin, chronically ill appearing and cooperative *Routine HEENT Exam Head: Present normocephalic and atraumatic Eye: Present EOMI, PERRL and normal accommodation ENT: Present mucous membranes moist Comments: Evaluation of oral cavity and pharynx was normal *Routine Neck Exam Neck: Present supple and full ROM Routine Chest/Breast/Axilla Exam Comments: No tenderness the patient does have a LifeVest on. But no signs of pain no signs of injury *Routine Respiratory Exam Respiratory: Present decreased breath sounds, CTA bilaterally, normal respiratory effort, able to speak in complete sentences and symmetric chest movement Comments: Lung sounds were clear *Routine Cardiovascular Exam Cardiovascular: Present RRR, Normal S1 and Normal S2 *Routine Abdominal Exam Abdominal: Present soft Comments: No tenderness on exam *Routine Rectal Exam Rectal:: deferred *Routine Genitalia Exam Genitalia:: deferred *Routine Extremities Exam Extremities: Present normal capillary refill Comments: No edema in lower extremities upper extremities are pink brisk capillary refill at all and that nailbeds Routine Back/Spine/Pelvis Exam Back/Spine: Present full ROM and CVA tenderness *Routine Skin Exam Skin: Present intact and warm *Routine Neurological Exam Neurological: Present alert, oriented X3, CN II-XII intact, normal tone, vision grossly intact and hearing grossly intact Comments: Patient showed no neurological deficits Routine Psychiatric Exam Psychiatric: Present normal affect, cooperative, good insight and good judgment Comments: Patient able to answer questions well was able to express understanding of lab findings and possible future care needs H&P: Result Impressions 1. Blood pressure abnormalities with increased weakness and decreased self-care Imaging and Cardiology Chest x-ray: Additional comments: No acute changes found on chest x-ray Assessment and Plan *Assessment and plan (1) Acute hypotension: Status: Acute Category: Medical Code(s): I95.9 - Hypotension, unspecified (2) Adult failure to thrive: Status: Acute Category: Medical Code(s): R62.7 - Adult failure to thrive (3) Hyponatremia: Status: Acute Category: Medical Code(s): E87.1 - Hypo-osmolality and hyponatremia (4) Shortness of breath: Status: Acute Category: Medical Code(s): R06.02 - Shortness of breath (5) Supplemental oxygen dependent: Status: Acute Category: Medical Code(s): Z99.81 - Dependence on supplemental oxygen (6) COPD (chronic obstructive pulmonary disease): Status: Acute Qualifiers: COPD type: emphysema Emphysema type: unspecified Qualified Code(s): J43.9 - Emphysema, unspecified Category: Medical Code(s): J44.9 - Chronic obstructive pulmonary disease, unspecified (7) Congestive heart failure: Status: Acute Qualifiers: Heart failure type: unspecified Heart failure chronicity: chronic Qualified Code(s): I50.9 - Heart failure, unspecified Category: Medical Code(s): I50.9 - Heart failure, unspecified Plan 1. Will place patient in observation on cardiac monitoring tonight.. Evaluate for overdiuresis consult cardiology. Evaluate also for failure to thrive self- care needs case management consult placed.. Related to hyponatremia not been able to tolerate 1000 mg of sodium tablets will change to 500 mg while here consult into pharmacy and dietary to see about how to increase salt intake.. 2. Talked to the patient about the failure to thrive being able to care for himself at home and that other plans might need to be made. Patient expressed understanding of that. 3. Will keep on professor of french also checking vital signs. To evaluate the fluctuation in systolic blood pressure since admission to the emergency room
--- NOTE | 2024-09-16 00:10 | PC.NURSE ---
Patient arrived to floor via stretcher from ED at 00:02.
[2024-09-16 01:58] LABS: Troponin I 0.02 ng/ml (0.00-0.034)
--- NOTE | 2024-09-16 04:51 | PC.NURSE ---
Mr Archie Mosher was newly admitted to the medical/surgical unit on behalf of the documented diagnoses failure to thrive, hypotension, and hyponatremia. Admission assessment and home medication reconciliation was completed by the charge nurse (Shauna Garrido RN). Patient reported experiencing generalized weakness and feeling ill. Upon arrival to the floor, the patient was given a bed bath and was provided a sandwich, BBQ chips, and Starry sodas to promote intake and appetite. Approximately 180 mg of sodium was consumed by the patient through food/beverages this shift. Patient has been using a urinal at the bedside; urine output measured and documented accordingly. Urine appearance was dark amrita with a slight odor. Redness was noted on the patient's bottom; a soiled pad dressing was removed (applied during recent ICU admission with the date 08/31 on it) during the assisted bed bath + skin assessment. Bruising was noted on the patient's upper right extremity as well. SCDs remain in place to the patient's lower extremities. Auscultation of his lungs (clear but diminished), heart, and bowels were within normal findings. Lifevest. Oxygen saturations have remained > 90% on 3 L of oxygen via nasal cannula. Patient stated during initial [facility] evaluation this shift that he needs little assistance during transfers/ambulation; however, patient has been resting in bed due to weakness and ambulation/standing has not been ocularly evaluated. He has been able to self-turn in bed effectively. At this time, the patient is resting with eyes closed, respirations even/unlabored, and without any apparent distress. No new needs at this time. Bed alarm on. Call light within reach.
[2024-09-16 04:52] LABS: Troponin I 0.02 ng/ml (0.00-0.034)
[2024-09-16 07:30] LABS: Anion Gap 3.4 mEq/L (5-15); Blood Urea Nitrogen 10 mg/dl (9-20); Calcium 8.5 mg/dl (8.4-10.2); Carbon Dioxide 34 mmol/L (22.0-30.0); Chloride 96 mmol/L (98-107); Creatinine Clearance Estimated 58 mL/min (50-200); Estimated Glomerular Filt Rate 110 ml/min (>60); GFR (African American) 133 ML/MIN (>60); Glucose 86 mg/dl (74-100); Magnesium 2.1 mg/dl (1.6-2.3); Potassium 4.4 mmoL/L (3.5-5.1); Sodium 129 mmol/L (136-145)
[2024-09-16] MEDS: SODIUM CHLORIDE 1,000MG TABLET 500 MG PO (08:33)
--- NOTE | 2024-09-16 09:09 | HMH.PHAINT1 ---
Pharmacy Intervention Comments: MEDICATION RECONCILIATION COMPLETE USING LIST FROM RECENT HOSPITAL DISCHARGE NOTE (09/05/24) AND EXTERNAL PHARMACY FILL HISTORY.
--- NOTE | 2024-09-16 12:09 | EXP.DC.SUM ---
General Admission date:: 09/16/24 HPI HPI HPI: Mr. Mosher is well-known to us here., He was recently released from the hospital. Had been home for about 10 days. Sudden onset of just weakness failure to thrive shortness of breath. He was just feeling terrible also looked bad for him family convinced him to come to the emergency room. Patient denies any nausea vomiting diarrhea or any type of viral illness symptoms. He notes he is supposed to take sodium chloride 1000 mg twice a day but has not been able to on a consistent basis because it makes him sick. On arrival to the emergency room blood pressure will vary from 120 systolic to 60 systolic. Examination of lung sounds and respiratory status by ER physician and myself I know significant distress wheezing or rhonchi noted. Cardiovascular veras he does have a LifeVest in place and he has no edema to the lower extremities. He remains on 3 L nasal cannula of oxygen for his COPD. Plan: Will patient patient in observation on continuous cardiac monitoring. Have him reevaluated by cardiology. Also have pharmacy look at if we can come up with 500 mg of sodium replacement or another regime that would not cause this much nausea. It does not appear that he is able to tolerate the 1000 mg dose. Also will have case management involved to evaluate whether he is able to have sufficient care at home or might need some type of rehabilitation in an inpatient facility. I have talked with him about that and he is third and oriented and expressed understanding of that. Hospital Course Hospital Course Hospital Course: This is a 74-year-old male who has a past medical history significant for HFrEF, cor pulmonale, NSTEMI with stents, exposure to agent orange, bundle branch block, coronary artery disease, hyperlipidemia, hypertension, diastolic dysfunction, hyponatremia, atrial fibrillation, bilateral carotid artery stenosis, and cardiomyopathy who presented with dizziness, hypotension and and was admitted for the same. #Dizziness, hypotension #HFrEF #Severe right heart failure, cor pulmonale #History of NSTEMI with stent to RCA ? Patient reports SBP in the 40s at home with dizziness. Denies shock from LifeVest. Patient monitored here, has been asymptomatic and blood pressures were stable. Currently 131/56, however intermittently in the SBP 90s which is chronic for patient. ? No signs of infection. No events on telemetry. Normal troponins, EKG reassuring without acute ischemic changes. ? ECHO in early September revealed LVEF 30%, G2 DD, severe reduction in RV function, moderate AAS, RVSP 50 to 55 mmHg. ? LHC on 09/04/2024 with 100% in-stent RCA stenosis however does have distal collaterals. ? Discussed with Dr. Mendez, who recommended discontinuing metoprolol succinate 25 mg and starting Entresto 24/26 mg twice daily. Advised patient to hold off on starting this until he checks his blood pressures at home, keep a log and follows up with cardiology early next week. They can discuss starting Entresto at that time to avoid further episodes of hypotension at home. ? Continue LifeVest, aspirin 81 mg, atorvastatin 40 mg, Lasix 40 mg daily. #A-fib ? Currently rate controlled. Continue Eliquis. # Interstitial lung disease ? Continue Trelegy 100 daily. #Chronic hyponatremia ? Sodium 129. Continue sodium chloride 500 mg twice daily. Dose reduced due to HFrEF. Exam Data for Last 24 hours Vital signs and Labs for Last 24 Hours: Temp Pulse Resp BP Pulse Ox O2 Del Method O2 Flow Rate 97.6 F 80 18 131/56 L 94 L Room Air 3 09/16/24 07:41 09/16/24 08:00 09/16/24 07:41 09/16/24 07:41 09/16/24 07:41 09/16/24 09:00 09/16/24 06:35 Laboratory Results - last 24 hr 09/15/24 22:11: WBC 8.3, RBC 3.98 L, Hgb 11.7 L, Hct 36.0 L, MCV 90.5, MCH 29.4, MCHC 32.5, RDW 13.7, Plt Count 318, MPV 9.3, Neut % (Auto) 69.1, Lymph % (Auto) 20.7, [place] % (Auto) 7.0, Eos % (Auto) 1.8, Baso % (Auto) 0.7, Neut # (Auto) 5.8, Lymph # (Auto) 1.7, [place] # (Auto) 0.6, Eos # (Auto) 0.2, Baso # (Auto) 0.1, PT 10.8, INR 0.96, APTT 29.9, Sodium 129 L, Potassium 5.0, Chloride 96 L, Carbon Dioxide 29, Anion Gap 9.0, BUN 9, Creatinine 0.70, Estimated GFR 110, Est GFR ( Amer) 133, Glucose 102 H, Calcium 8.5, Magnesium 1.6, Total Bilirubin 0.6, AST 25, ALT 20, Alkaline Phosphatase 79, Troponin I 0.02, NT-Pro-B Natriuret Pep 8170 H, Total Protein 6.3 D, Albumin 3.7, Globulin 2.6, Albumin/Globulin Ratio 1.4, Acetone Level None detected 09/15/24 22:15: VBG pH 7.31, VBG pCO2 50.5, VBG pO2 65.9 H, VBG HCO3 25.0, VBG Total CO2 26.6, VBG O2 Saturation 90.8 H, VBG Base Excess -1.2, VBG Lactic Acid 1.4 09/16/24 01:20: Troponin I 0.02 09/16/24 04:18: Troponin I 0.02 09/16/24 06:30: Sodium 129 L, Potassium 4.4, Chloride 96 L, Carbon Dioxide 34 H, Anion Gap 3.4 L, BUN 10, Creatinine 0.70, Estimated Creat Clear 58, Estimated GFR 110, Est GFR ( Amer) 133, Glucose 86, Calcium 8.5, Magnesium 2.1 D I & O for Last 24 hours: Intake & Output 09/13/24 09/14/24 09/15/24 09/16/24 23:59 23:59 23:59 23:59 Intake Total 462 / 462 Output Total 625 / 625 Balance -163 / -163 Weight 58.967 kg 63.548 kg Constitutional Constitutional: no acute distress *Routine HEENT Exam Head: Present normocephalic Eye: Present EOMI and PERRL ENT: Present mucous membranes moist *Routine Neck Exam Neck: Present supple; Absent lymphadenopathy *Routine Respiratory Exam Respiratory: Present CTA bilaterally *Routine Cardiovascular Exam Cardiovascular: Present RRR *Routine Abdominal Exam Abdominal: Present soft and normoactive bowel sounds; Absent tenderness *Routine Extremities Exam Extremities: Present edema; Absent cyanosis or clubbing Comments: Bilateral lower extremity 1+ pitting edema. *Routine Skin Exam Skin: Present warm; Absent rash *Routine Neurological Exam Neurological: Present alert and oriented X3 Results Data Completed and Pending Labs on day of discharge: Labs from last 24 hours 09/16/24 09/16/24 09/16/24 06:30 04:18 01:20 WBC RBC Hgb Hct MCV MCH MCHC RDW Plt Count MPV Neut % (Auto) Lymph % (Auto) [place] % (Auto) Eos % (Auto) Baso % (Auto) Neut # (Auto) Lymph # (Auto) [place] # (Auto) Eos # (Auto) Baso # (Auto) PT INR APTT VBG pH VBG pCO2 VBG pO2 VBG HCO3 VBG Total CO2 VBG O2 Saturation VBG Base Excess VBG Lactic Acid Sodium 129 L Potassium 4.4 Chloride 96 L Carbon Dioxide 34 H Anion Gap 3.4 L BUN 10 Creatinine 0.70 Estimated Creat Clear 58 Estimated GFR 110 Est GFR ( Amer) 133 Glucose 86 Calcium 8.5 Magnesium 2.1 D Total Bilirubin AST ALT Alkaline Phosphatase Troponin I 0.02 0.02 NT-Pro-B Natriuret Pep Total Protein Albumin Globulin Albumin/Globulin Ratio Acetone Level 09/15/24 09/15/24 22:15 22:11 WBC 8.3 RBC 3.98 L Hgb 11.7 L Hct 36.0 L MCV 90.5 MCH 29.4 MCHC 32.5 RDW 13.7 Plt Count 318 MPV 9.3 Neut % (Auto) 69.1 Lymph % (Auto) 20.7 [place] % (Auto) 7.0 Eos % (Auto) 1.8 Baso % (Auto) 0.7 Neut # (Auto) 5.8 Lymph # (Auto) 1.7 [place] # (Auto) 0.6 Eos # (Auto) 0.2 Baso # (Auto) 0.1 PT 10.8 INR 0.96 APTT 29.9 VBG pH 7.31 VBG pCO2 50.5 VBG pO2 65.9 H VBG HCO3 25.0 VBG Total CO2 26.6 VBG O2 Saturation 90.8 H VBG Base Excess -1.2 VBG Lactic Acid 1.4 Sodium 129 L Potassium 5.0 Chloride 96 L Carbon Dioxide 29 Anion Gap 9.0 BUN 9 Creatinine 0.70 Estimated Creat Clear Estimated GFR 110 Est GFR ( Amer) 133 Glucose 102 H Calcium 8.5 Magnesium 1.6 Total Bilirubin 0.6 AST 25 ALT 20 Alkaline Phosphatase 79 Troponin I 0.02 NT-Pro-B Natriuret Pep 8170 H Total Protein 6.3 D Albumin 3.7 Globulin 2.6 Albumin/Globulin Ratio 1.4 Acetone Level None detected DS: Diagnosis Discharge Diagnosis (1) Acute hypotension: Status: Acute Code(s): I95.9 - Hypotension, unspecified (2) Adult failure to thrive: Status: Acute Code(s): R62.7 - Adult failure to thrive (3) Hyponatremia: Status: Acute Code(s): E87.1 - Hypo-osmolality and hyponatremia (4) Shortness of breath: Status: Acute Code(s): R06.02 - Shortness of breath (5) Supplemental oxygen dependent: Status: Acute Code(s): Z99.81 - Dependence on supplemental oxygen (6) COPD (chronic obstructive pulmonary disease): Status: Acute Code(s): J44.9 - Chronic obstructive pulmonary disease, unspecified Qualifiers: COPD type: emphysema Emphysema type: unspecified Qualified Code(s): J43.9 - Emphysema, unspecified (7) Congestive heart failure: Status: Acute Code(s): I50.9 - Heart failure, unspecified Qualifiers: Heart failure chronicity: chronic Heart failure type: unspecified Qualified Code(s): I50.9 - Heart failure, unspecified Meds Home Medications and Allergies Home Medications ?Medication ?Instructions ?Recorded ?Confirmed ?Type aspirin 81 mg tablet,delayed 81 mg PO DAILY 12/19/21 09/16/24 History release albuterol sulfate 90 mcg/actuation 2 puff inhalation Q4HP PRN 10/22/22 09/16/24 History aerosol inhaler Shortness of air apixaban 5 mg tablet 5 mg PO BID 10/22/22 09/16/24 History atorvastatin 40 mg tablet 40 mg PO HS 30 days #30 tabs 09/05/24 09/16/24 Rx fluticasone fur. 100 mcg-umeclid 1 inh inhalation DAILY 30 days #60 09/05/24 09/16/24 Rx 62.5 mcg-vilant 25 mcg ea inhalat.powder (Trelegy Ellipta) furosemide 40 mg tablet 40 mg PO DAILY 30 days #30 tabs 09/05/24 09/16/24 Rx sacubitril 24 mg-valsartan 26 mg 1 tab PO BID 15 days #30 tabs 09/16/24 Rx tablet (Entresto) sodium chloride 1,000 mg soluble 500 mg (1/2 x 1,000 mg) PO BID 30 09/16/24 09/16/24 Rx tablet days #60 tabs New Prescriptions to Start Prescriptions: sacubitril-valsartan [Entresto] Ashok Bhatt Allergies Allergy/AdvReac Type Severity Reaction Status Date / Time No Known Allergies Allergy Verified 08/30/24 15:23 Discharge Plan Disposition Patient Disposition: Home, Self-Care Condition: Fair Follow up Plan Follow up with: Carolina Mejia APRN [Nurse Practitioner] - 09/21/24 1:30 pm Saeid Argueta MD [Physician] - 10/04/24 1:00 pm Carlo Cerrato MD [Staff Physician] - 09/18/24 1:00 pm (please call for appointment) Prescriptions/Medication Reconciliation: New Entresto 24-26 mg tablet 1 tab PO BID 15 Days Qty: 30 0RF Continued albuterol sulfate 90 mcg/actuation Hfa Aerosol Inhaler 2 puff INHALATION Q4HP PRN (Reason: Shortness of air) apixaban 5 mg Tablet 5 mg PO BID aspirin 81 MG tablet,delayed release (DR/EC) 81 mg PO DAILY atorvastatin 40 mg Tablet 40 mg PO HS 30 Days Qty: 30 0RF Trelegy Ellipta 100-62.5-25 mcg Blister With Device 1 inh inhalation DAILY 30 Days Qty: 60 0RF furosemide 40 mg Tablet 40 mg PO DAILY 30 Days Qty: 30 0RF Changed sodium chloride 1,000 mg Tablet,Soluble 500 mg PO BID 30 Days Qty: 60 0RF Discontinued metoprolol succinate 25 mg Tablet Extended Release 24 Hr 25 mg PO DAILY 30 Days Qty: 30 0RF Problem Reconciliation Problems Reviewed?: Yes Patient Discharge Instructions Patient Instructions: DI for Hyponatremia, DI for Muscle Weakness, [id number] Print Language: Mongolian Providers Primary Care Provider: Provider,Referral Admit Provider: Ashok Bhatt Attending Provider: Ashok Bhatt
--- NOTE | 2024-09-19 11:12 | SW/DCPLANNER ---
Phoned patient x2. Patient did not answer and i left messages with my name and call back number. Olesya Green
== END 2024-09-16 13:22 | disposition home or self-care (01) ==
LOC: ER 23:15 → 2ND 23:49
PROVIDERS: Nurse Practitioner Family; Admitting Provider Student in an Organized Health Care Education/Training Program; Emergency Provider Emergency Medicine; Visit Provider Student in an Organized Health Care Education/Training Program
DX: I95.9 Hypotension, unspecified (principal); R62.7 Adult failure to thrive; E87.1 Hypo-osmolality and hyponatremia; R06.02 Shortness of breath; Z99.81 Dependence on supplemental oxygen; I50.20 Unspecified systolic (congestive) heart failure; I65.23 Occlusion and stenosis of bilateral carotid arteries; I42.9 Cardiomyopathy, unspecified; I25.2 Old myocardial infarction; I11.0 Hypertensive heart disease with heart failure; Z87.891 Personal history of nicotine dependence; J44.9 Chronic obstructive pulmonary disease, unspecified; Z95.5 Presence of coronary angioplasty implant and graft; I48.91 Unspecified atrial fibrillation; Z79.899 Other long term (current) drug therapy; Z79.01 Long term (current) use of anticoagulants; Z79.51 Long term (current) use of inhaled steroids
CPT/HCPCS: 36415; 71045; 80048; 80053; 82009; 82803; 83735; 83880; 84484; 85025; 85610; 85730; 87040; 93005; 99285; G0378

== ENCOUNTER 2024-11-25 03:05 | Emergency (ER) | payer OTHER, SELFPAY ==
--- NOTE | 2024-11-25 03:08 | HMH.EDGENADL ---
Discharge Plan Disposition Patient Disposition: Home, Self-Care Prescriptions Prescriptions: No Action albuterol sulfate 90 mcg/actuation Hfa Aerosol Inhaler 2 puff INHALATION Q4HP PRN (Reason: Shortness of air) apixaban 5 mg Tablet 5 mg PO BID aspirin 81 MG tablet,delayed release (DR/EC) 81 mg PO DAILY atorvastatin 40 mg Tablet 40 mg PO HS 30 Days Qty: 30 0RF Trelegy Ellipta 100-62.5-25 mcg Blister With Device 1 inh inhalation DAILY 30 Days Qty: 60 0RF furosemide 40 mg Tablet 40 mg PO DAILY 30 Days Qty: 30 0RF Entresto 24-26 mg tablet 1 tab PO BID 15 Days Qty: 30 0RF sodium chloride 1,000 mg Tablet,Soluble 500 mg PO BID 30 Days Qty: 60 0RF Referrals Follow up/Referrals: Provider,Referral, MD [Primary Care Provider] - See instructions Activity Restrictions/Add. Instructions Additional Instructions/Restrictions: Please follow-up with your primary care provider. Please return to the emergency department if you develop any new or worsening symptoms or become concerned for your health. Clinical Impressions Clinical Impression: Skin tear, Chronic subdural hematoma, Chronic hyponatremia Fall Qualifiers: Encounter type: initial encounter Qualified Code(s): W19.XXXA - Unspecified fall, initial encounter Print Language Print Language: Cymro Discharge ED Provider: Shaq Chaves General Adult HPI General Chief complaint: Fall Stated complaint: Fall head nose injury Time Seen by Provider: 11/25/24 03:08 History of Present Illness HPI narrative: 74-year-old male with history of COPD, A-fib on Eliquis, cardiomyopathy presents for fall. He reports that he was on the bathroom toilet and had his hands on his knees trying to stand up when his hands slipped and he fell forward striking his head on the ground. He reports that his nose was bleeding. He also scraped his left arm. He denies any other trauma or injuries. Denies any other significant symptoms at this time. Related Data Home Medications ?Medication ?Instructions ?Recorded ?Confirmed aspirin 81 mg tablet,delayed 81 mg PO DAILY 12/19/21 09/18/24 release albuterol sulfate 90 mcg/actuation 2 puff inhalation Q4HP PRN 10/22/22 09/18/24 aerosol inhaler Shortness of air apixaban 5 mg tablet 5 mg PO BID 10/22/22 09/18/24 Previous Rx's ?Medication ?Instructions ?Recorded atorvastatin 40 mg tablet 40 mg PO HS 30 days #30 tabs 09/05/24 fluticasone fur. 100 mcg-umeclid 1 inh inhalation DAILY 30 days #60 09/05/24 62.5 mcg-vilant 25 mcg ea inhalat.powder (Trelegy Ellipta) furosemide 40 mg tablet 40 mg PO DAILY 30 days #30 tabs 09/05/24 sacubitril 24 mg-valsartan 26 mg 1 tab PO BID 15 days #30 tabs 09/16/24 tablet (Entresto) sodium chloride 1,000 mg soluble 500 mg (1/2 x 1,000 mg) PO BID 30 09/16/24 tablet days #60 tabs Allergies Allergy/AdvReac Type Severity Reaction Status Date / Time No Known Allergies Allergy Verified 09/18/24 09:31 [facility] Disclaimer: The information contained in this section may have been updated after the patient was seen, as this information can be updated by other users. Medical History Congestive heart failure Hyponatremia Atrial fibrillation Hyponatremia COPD (chronic obstructive pulmonary disease) with acute bronchitis Sepsis HFrEF (heart failure with reduced ejection fraction) Pneumonia Non-ST elevation NV (NSTEMI) Coronary artery disease Diastolic dysfunction HLD (hyperlipidemia) Hypertension Pulmonary emphysema Fibrosis of lung COPD exacerbation Dyspnea on exertion Bilateral carotid artery stenosis Swelling of right upper extremity Cardiomyopathy Surgical History H/O hernia repair Family History Other Colorectal cancer Social History Smoking Status: Former smoker alcohol intake: current alcohol intake frequency: holidays/special occasions only current occupational status: employed Travel in the last 8 weeks?: None household members: spouse 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 [employer] caffeine: No Other Medical History Have you received the Flu Vaccine for this season: No Have you received the Pneumonia Vaccine: No ROS Obtained: Yes All systems reviewed & no additional complaints except as documented Physical Exam General General appearance: alert and in no apparent distress Head Head exam: normocephalic and other (Contusion to the frontal scalp) Eye Eye exam: Present normal appearance, PERRL and EOMI ENT ENT exam: Present normal oropharynx, normal external ear exam and other (No nasal septal hematoma or current signs of bleeding) Neck Neck exam: Present normal inspection and full ROM; Absent tenderness Chest Chest inspection: Present normal inspection and symmetric chest wall rise; Absent tenderness Respiratory Respiratory exam: Present normal lung sounds bilaterally; Absent respiratory distress Cardiovascular Cardiovascular exam: Present regular rate and normal rhythm Abdominal Exam Abdominal exam: Present soft; Absent distention, tenderness or guarding Extremities Exam Extremities exam: Present other (No significant tenderness or deformity. Patient has a small skin tear on the left lateral upper arm); Absent edema or joint swelling Back Exam Back exam: Present normal inspection; Absent tenderness Neurological Exam Neurological exam: Present alert and oriented X3; Absent motor sensory deficit Psychiatric Psychiatric exam: Present normal affect and normal mood Skin Skin exam: Present warm, dry and normal color Lymphatic Lymphatic Findings: no adenopathy Medical Decision Making Medical Records Medical records reviewed: Yes I reviewed the patient's medical records. Screening: Per USPSTF and CDC recommendations, given the prevalence of disease in our region, it is our hospital?s policy to screen for HIV and viral Hepatitis for all patients aged 18 and over and those with ongoing risk factors. Maninder Inquiry Pt receiving controlled substance: No Maninder was queried for this patient: No Vital Signs: 11/25/24 03:15 11/25/24 04:12 11/25/24 04:47 Temperature 97.9 F 97.9 F Temperature Source Oral Oral Pulse Rate 80 80 Pulse Rate [Right Radial] 83 Respiratory Rate 16 16 Blood Pressure 140/74 143/72 H Blood Pressure [Right Arm] 127/67 Blood Pressure Mean [Right Arm] 87 Blood Pressure Source Automatic Cuff Automatic Cuff Blood Pressure Source [Right Arm] Automatic Cuff Blood Pressure Position Supine Supine Blood Pressure Position [Right Arm] Supine 02 Sat by Pulse Oximetry 94 L 98 Oxygen Delivery Method Room Air Nasal Cannula Oxygen Flow Rate (LPM) 3 3 Lab Data Lab results reviewed: Yes I reviewed the patient's lab results. Lab Results 11/25/24 03:15: WBC 5.5, RBC 4.18 L, Hgb 12.5 L, Hct 37.9 L, MCV 90.7, MCH 29.9, MCHC 33.0, RDW 12.8, Plt Count 212, MPV 9.7, Neut % (Auto) 61.8, Lymph % (Auto) 26.4, [place] % (Auto) 7.5, Eos % (Auto) 3.5, Baso % (Auto) 0.6, Neut # (Auto) 3.4, Lymph # (Auto) 1.4, [place] # (Auto) 0.4, Eos # (Auto) 0.2, Baso # (Auto) 0.0, PT 10.8, INR 0.97, APTT 30.5, Sodium 124 L, Potassium 4.5, Chloride 88 L, Carbon Dioxide 34 H, Anion Gap 6.5, BUN 6 L, Creatinine 0.60 L, Estimated Creat Clear 57, Estimated GFR 132, Est GFR ( Amer) 159, Glucose 78, Calcium 8.7, Total Bilirubin 0.4, AST 36, ALT 14, Alkaline Phosphatase 70, Total Protein 6.8, Albumin 3.9, Globulin 2.9, Albumin/Globulin Ratio 1.3 11/25/24 03:15 11/25/24 03:15 Orders (Tests/Meds): ORDERS Category Date Time Status CT cervical spine wo con Stat Cat Scan 11/25/24 03:[address] head/brain wo con Stat Cat Scan 11/25/24 03:12 Completed CXR --portable [XR chest portable] Stat Exams 11/25/24 03:12 Completed CBC w/Auto Diff [Complete Blood Count Auto Diff] Stat Lab 11/25/24 03:15 Completed CMP [Comprehensive Metabolic Panel] Stat Lab 11/25/24 03:15 Completed PT INR [Prothrombin Time INR] Stat Lab 11/25/24 03:15 Completed PTT [Activated Partial Thrombo Time] Stat Lab 11/25/24 03:15 Completed Medical Decision Narrative: 74-year-old male with history of heart failure cardiomyopathy, A-fib on Eliquis, COPD, chronic alcohol use presents for fall. He was sitting on the toilet and was using his hands on his knees to stand up when his hands slipped and he fell forward striking his head.. History was obtained via interactive discussion with patient. On arrival, patient is [afebrile, hemodynamically stable, satting appropriately, alert, oriented x4, GCS 15], moving all extremities spontaneously. Full physical exam performed and significant for scalp hematoma and abrasion. Small skin tear to the left upper arm. No other signs of trauma. Patient generally well-appearing. Ambulating at baseline. Differential includes but is not limited to intracranial trauma intrathoracic trauma intra-abdominal trauma spine trauma extremity trauma. Patient is up-to-date on tetanus. Given fall on blood thinners, CT head and CT C-spine were ordered as well as a chest x-ray and basic labs. On re-evaluation, patient [remains afebrile, HD stable.] Laboratory workup independently interpreted by me and significant for chronic hyponatremia, normal renal function, no coagulopathy. Imaging independently interpreted by me and significant for chronic bilateral subdurals with no acute component. No evidence of acute fracture in the cervical spine. Chest x-ray shows no pneumothorax or obvious rib fracture. See radiology read for full review of final results. Neurosurgery consultation/transfer/repeat CT was considered, but deemed unnecessary due to no new acute bleed.. Given patient history, exam and workup, patient's presentation most likely represents fall with scalp hematoma and abrasions, no evidence of new intracranial bleeding. Patient does have chronic subdurals that were noted for the first time on CT tonight. Patient remains alert and oriented and well-appearing. These findings were communicated with patient and he was discharged in stable condition.. Procedures Risk/Benefits of Procedure(s) Were Explained: Yes Critical Care Critical Care Time Critical Care Time: Yes Attestation: On 11/25/24, the high probability of a clinically significant, sudden or life threatening deterioration of the following system(s) required my full and direct attention, intervention and personal management. The time I documented below is in addition to time spent performing reported procedures but includes the following listed in this critical care notation. Total Time Total Critical Care Time: 35
--- NOTE | 2024-11-25 03:12 | XR_ITS ---
PROCEDURE INFORMATION: Exam: XR Chest Exam date and time: 11/25/2024 3:28 AM Age: 74 years old Clinical indication: Dyspnea; Additional info: Fall TECHNIQUE: Imaging protocol: Radiologic exam of the chest. Views: 1 view. COMPARISON: CR XR CHEST PORTABLE 09/15/2024 10:20 PM FINDINGS: Lungs: Lungs are hyperinflated with COPD changes. There is bilateral upper lobe pulmonary fibrosis. Superimposed upper lobe pneumonia can not be entirely excluded. Pleural spaces: Unremarkable. No pleural effusion. No pneumothorax. Heart/Mediastinum: Mild cardiomegaly. Suspected stent in the right coronary artery. Bones/joints: Unremarkable. IMPRESSION: COPD and bilateral upper lobe pulmonary fibrosis. Superimposed bilateral upper lobe pneumonia can not be entirely excluded.
--- NOTE | 2024-11-25 03:12 | CT_ITS ---
PROCEDURE INFORMATION: Exam: CT Head Without Contrast Exam date and time: 11/25/2024 3:34 AM Age: 74 years old Clinical indication: Injury or trauma; Fall; Blunt trauma (contusions or hematomas); Additional info: Fall on blood thinners TECHNIQUE: Imaging protocol: Computed tomography of the head without contrast. Radiation optimization: All CT scans at this facility use at least one of these dose optimization techniques: automated exposure control; mA and/or kV adjustment per patient size (includes targeted exams where dose is matched to clinical indication); or iterative reconstruction. COMPARISON: CT HEAD/BRAIN WO CON 05/14/2024 8:57 AM FINDINGS: Brain: Mild chronic ischemic microvascular change. Subacute to chronic bilateral subdural hematomas new since the prior study of 05/14/2024 measuring a maximum of 7.7 mm on the left and 7.8 mm on the right. Cerebral ventricles: No ventriculomegaly. Paranasal sinuses: Visualized sinuses are unremarkable. No fluid levels. Mastoid air cells: Visualized mastoid air cells are well aerated. Bones: Unremarkable. No acute fracture. Soft tissues: Unremarkable. IMPRESSION: Subacute to chronic bilateral subdural hematomas new since the prior study of 05/14/2024 measuring a maximum of 7.7 mm on the left and 7.8 mm on the right.
--- NOTE | 2024-11-25 03:12 | CT_ITS ---
PROCEDURE INFORMATION: Exam: CT Cervical Spine Without Contrast Exam date and time: 11/25/2024 3:37 AM Age: 74 years old Clinical indication: Injury or trauma; Fall; Blunt trauma TECHNIQUE: Imaging protocol: Computed tomography of the cervical spine without contrast. Radiation optimization: All CT scans at this facility use at least one of these dose optimization techniques: automated exposure control; mA and/or kV adjustment per patient size (includes targeted exams where dose is matched to clinical indication); or iterative reconstruction. COMPARISON: CT CERVICAL SPINE WO CON 05/14/2024 8:57 AM FINDINGS: Bones/joints: No acute fracture. Normal alignment. Multilevel degenerative change cervical spine greatest at C5-C6-7 with small osteophytes. No high-grade stenosis or impingement. Lungs: Lung apices are normal. Soft tissues: Unremarkable. IMPRESSION: No acute traumatic injury.
[2024-11-25 03:15] VITALS: BP 127/67; PULSE 83; RESP 16; TEMP 36.6; O2SAT 94; BMI 19.5
[2024-11-25 03:56] LABS: Basophils % 0.6 % (0.1-2.0); Eosinophils # 0.2 Kmm3 (0.0-0.4); Eosinophils % 3.5 % (0.1-12.0); Hematocrit 37.9 % (42.0-52.0); Hemoglobin 12.5 g/dL (14.1-18.0); Immature Granulocytes # 0.01 10^3uL; Immature Granulocytes % 0.2 %; Lymphocytes # 1.4 K/mm3 (0.7-4.5); Lymphocytes % 26.4 % (10-50); Mean Corpuscular Hemoglobin 29.9 pg (27.0-31.2); Mean Corpuscular Volume 90.7 fl (80-94); Mean Platelet Volume 9.7 fl (7.4-10.4); Monocytes # 0.4 K/mm3 (0.1-1.0); Monocytes % 7.5 % (1.7-9.3); Neutrophils # 3.4 K/mm3 (1.8-7.8); Neutrophils % 61.8 % (37.0-80.0); Nucleated Red Blood Cells # 0 10^3/uL; Nucleated Red Blood Cells % 0 %; Platelet Count 212 K/mm3 (142-424); Red Blood Count 4.18 M/mm3 (4.60-6.20); Red Cell Distribution Width 12.8 % (11.5-17.5); Red Cell Distribution Width-SD 42.9 fL; White Blood Count 5.5 K/mm3 (4.8-10.8)
[2024-11-25 03:58] LABS: Albumin Level 3.9 g/dl (3.5-5.0); Chloride 88 mmol/L (98-107); Potassium 4.5 mmoL/L (3.5-5.1); Sodium 124 mmol/L (136-145)
[2024-11-25 04:00] LABS: Blood Urea Nitrogen 6 mg/dl (9-20); Creatinine Clearance Estimated 57 mL/min (50-200); Estimated Glomerular Filt Rate 132 ml/min (>60); GFR (African American) 159 ML/MIN (>60)
[2024-11-25 04:01] LABS: Alanine Aminotransferase 14 U/L (12-78); Albumin/Globulin Ratio 1.3 (1.1-1.8); Alkaline Phosphatase 70 U/L (38-126); Anion Gap 6.5 mEq/L (5-15); Aspartate Amino Transferase 36 U/L (17-59); Bilirubin,Total 0.4 mg/dl (0.2-1.3); Calcium 8.7 mg/dl (8.4-10.2); Carbon Dioxide 34 mmol/L (22.0-30.0); Globulin 2.9 g/dL (1.3-3.2); Glucose 78 mg/dl (74-100); Total Protein,Serum 6.8 g/dl (6.3-8.2)
[2024-11-25 04:03] LABS: Activated Partial Thrombo Time 30.5 seconds (22.8-30.6); INR 0.97 (0.9-1.1); Prothrombin Time 10.8 seconds (10.1-12.5)
[2024-11-25 04:12] VITALS: BP 140/74; PULSE 80; O2SAT 98
[2024-11-25 04:47] VITALS: BP 143/72; PULSE 80; RESP 16; TEMP 36.6; O2SAT 97
== END 2024-11-25 05:11 | disposition home or self-care (01) ==
PROVIDERS: Emergency Provider Emergency Medicine
DX: I62.03 Nontraumatic chronic subdural hemorrhage (principal); S41.102A Unspecified open wound of left upper arm, initial encounter; E87.1 Hypo-osmolality and hyponatremia; W19.XXXA Unspecified fall, initial encounter; Z79.01 Long term (current) use of anticoagulants; Z87.891 Personal history of nicotine dependence; I10 Essential (primary) hypertension
CPT/HCPCS: 70450; 71045; 72125; 80053; 85025; 85610; 85730; 99285

== ENCOUNTER 2024-12-19 11:14 | Observation (INO) | payer MEDICARE, OTHER, SELFPAY ==
--- OUTSIDE RECORDS SUMMARY | 2023-12-26 04:09 | XMS_ITS ---
Author Name [facility] [place] Address [address] [place] [address] Care Team Providers Care Business Support Assistant Name Role Phone IRASEMA GIRON Primary Care Provider Unavail le Insurance Providers: All historical and current Section Date Range: From patient's date of to the date document was created. This section includes the names of all active insurance providers for the patient. Insurance Provider Type of Coverage Plan Name Start of Policy Coverage End of Policy Coverage Group Number Member ID Insurance Provider's Telephone Number Policy Collazo's Name Patient's Relationship to Policy Collazo MEDICARE (WNR) MEDICARE (M) PART A Jun 04, 2009 PART A [id number] [place] PATIENT MEDICARE (WNR) MEDICARE (M) PART A Jun 04, 2009 PART A [id number] [place] PATIENT MEDICARE (WNR) MEDICARE (M) PART A Jun 04, 2009 PART A [id number] [place] PATIENT MEDICARE (WNR) MEDICARE (M) PART A Jun 04, 2009 PART A [id number] [place] PATIENT MEDICARE (WNR) MEDICARE (M) PART A Jun 04, 2009 PART A [id number] [phone] [place] PATIENT Selected Encounter This section includes the information on record at [place] for the Encounter. Date/Time Encounter Type Encounter Description Reason Pro vider Source Dec 26, 2023 08:09 AM Outpatient Encounter ADMIN PAT ACTIVTIES (MASNONCT) IHE Encounter Template Text not used by VA Plan of Treatment: Future Appointments (+ 6 months) and Future Tests (+/- 45 days) The Plan of Treatment section includes future care activities for the patient from all [place] [facility]. This section includes future appointments and future orders which are active, pending or scheduled. Future Appointments This section includes appointments that were scheduled to occur 6 months from the date of the Encounter, up to a maximum of 20 appointments. The data comes from all [place] treatment facilities. Appointment Date/Time Appointment Type Appointme nt Facility Name Dec 30, 2023 02:30 PM AMBULATORY - [facility] Feb 04, 2024 10:30 AM [facility] Feb 14, 2024 11:00 AM [facility] [place] [facility] Feb 14, 2024 01:20 PM [facility] Feb 24, 2024 09:00 AM [facility] Feb 29, 2024 09:00 AM [facility] Mar 13, 2024 11:00 AM [facility] Mar 20, 2024 01:00 PM AMBULATORY - MEDICINE [facility] Mar 20, 2024 01:01 PM [facility] Mar 28, 2024 04:00 PM [facility] Apr 03, 2024 01:15 PM [facility] Apr 27, 2024 08:30 AM AMBULATORY - MEDICINE [facility] Apr 27, 2024 09:15 AM [place] [place] Apr 27, 2024 10:00 AM [facility] Apr 27, 2024 11:00 AM [facility] Apr 28, 2024 10:00 AM [facility] May 17, 2024 01:00 PM [facility] May 24, 2024 10:00 AM [facility] May 24, 2024 10:30 AM [facility] NONE [facility] May 24, 2024 11:00 AM AM[facility]ULATORY - MEDICINE [facility] Social History: Smoking Status (Most current) and Tobacco Use (All prior to encounter date) This section includes the most current, and the historical, smoking and tobacco- related health factors from the [place] facility where the Encounter took place. Current Smoking Status This section includes the most current smoking, or tobacco-related health factor, from the [place] facility where the Encounter took place. Date/Time Current Smoking Status Comment Facil ity Jan 21, 2016 04:53 PM NON-TOBACCO USE INPATIENT [facility] Tobacco Use History This section includes a history of the smoking, or tobacco-related health factors, that were collected on or before the date of the Encounter. The data comes from the [place] facility where the Encounter took place. Date/Time Smoking Status/Tobacco Use Comment F acility Jan 13, 2016 06:51 AM V9 QUIT TOBACCO >7 YEARS AGO [facility] Advance Directives: All historical and current Section Date Range: From patient's date of to the date document was created. This section includes ALL of a patient's completed or amended [place] Advance and Rescinded Directives. The entries below indicate that a directive exists for the patient, but an actual copy is not included with this document. The data comes from all [place] facilities. Date Advance Directives Provider Source Apr 16, 2010 ADVANCE DIRECTIVE ALEXEY SHEPHERD [facility] Encounter Notes: All associated encounter notes This section contains the clinical notes associated to the Encounter. Date/Time Encounter Note(s) Provider Source November 26, 2023 10:00 AM NONVA NOTE: LOCAL TITLE: COMMUNITY CARE-GENE SELF PRESENTING CARE COORD PLAN STANDARD TITLE: NONVA NOTE DATE OF NOTE: NOVEMBER 26, 2023@10:00 ENTRY DATE: DEC 26, 2023@08:10:15 AUTHOR: CATINA SHAH COSIGNER: URGENCY: STATUS: COMPLETED COMMUNITY CARE-GENE SELF PRESENTING CARE COORD PLAN NOTE Has ADDENDA Emergency Notification Intake Date Presenting to the Facility: November Date of note has been modified to reflect Date of Service. Reason for modification: HOSPITAL NOTIFICATION DATE/TIME: 11/30/2023 1334 EDT Method of Contact: Notified from ECR worklist Notification ID: [id number] [facility] Referral #: [facility] Name: Hospital: [facility] Address: City: [place] State: [place] Zip Code: Phone : Community Facility Point of Contact: Name: CARE MANAGEMENT DEPT Phone: [phone] Chief complaint: CHEST PAIN, UNABLE TO BREATHE Primary Diagnosis: R079, J441 Disposition Discharged FROM ED PACT TEAM AWARE OF OSH ED EOC PER CPRS CHART REVIEW /es/ Catina Shah MSN, spice miller hammer mill Nurse Coordinator Signed: 12/26/2023 08:15 12/26/2023 ADDENDUM STATUS: COMPLETED Episode of Care Complete Determination: Closed - Approved for [id number] [id number] [facility] Transfer Office notified of Veterans presentation to the aforementioned hospital via [facility] SharePoint Site. [facility] made eligibility determination and sent payment authorization and/or denial information directly to the healthcare provider. Any questions regarding determination, claims, & billing may be made to the following: [facility] Telephone Number: [phone] ([phone]) POM (Payment Operations and Management) Claims Status Line: [facility] Provider Services Region 2: /mona/ Catina AGUERO, spice miller hammer mill Nurse Coordinator Signed: 12/26/2023 08:16 CATINA SHAH-D [facility]
--- OUTSIDE RECORDS SUMMARY | 2023-12-27 09:36 | XMS_ITS | Encounter Summary ---
Author Name [facility] [place] Address [address] [place] [address] Care Team Providers Care Mosaic Layer Name Role Phone IRASEMA GIRON Primary Care [...] PART A Jun 04, 2009 PART A [id number] [place] PATIENT MEDICARE (WNR) MEDICARE (M) PART A Jun 04, 2009 PART A [id number] [place] PATIENT MEDICARE (WNR) MEDICARE (M) PART A Jun 04, 2009 PART A [id number] [place] PATIENT MEDICARE (WNR) MEDICARE (M) PART A Jun 04, 2009 PART A [id number] [place] PATIENT MEDICARE (WNR) MEDICARE (M) PART A Jun 04, 2009 PART A [id number] [place] PATIENT Selected Encounter This section includes the information on record at [place] for the Encounter. Date/Time Encounter Type Encounter Description Reason Pro vider Source Dec 27, 2023 01:36 PM Outpatient Encounter ADMIN PAT ACTIVTIES (MASNONCT) IHE Encounter Template Text not used by VA Plan of Treatment: Future Appointments (+ 6 months) and Future Tests (+/- 45 days) The Plan of Treatment section includes future care activities for the patient from all [place] [facility]. This section includes future appointments and future orders which are active, pending or scheduled. Future Appointments This section includes appointments that were scheduled to occur 6 months from the date of the Encounter, up to a maximum of 20 appointments. The data comes from all [place] treatment facilities. Appointment Date/Time Appointment Type Appointme nt Facility Name Dec 30, 2023 02:30 PM AMBULATORY [facility] [place] [facility] [place] [facility] Feb 04, 2024 10:30 AM [facility] [place] [facility] Feb 14, 2024 11:00 AM [facility] [place] [facility] Feb 14, 2024 01:20 PM [facility] [place] [facility] Feb 24, 2024 09:00 [facility], 2024 09:00 [facility] Mar 13, 2024 11:00 AM [facility] [place] [facility] Mar 20, 2024 01:00 PM AMBULATORY - MEDICINE [facility] Mar 20, 2024 01:01 PM AMBULATORY - MEDICINE [facility] NGTON [facility] Mar 28, 2024 04:00 PM [facility] [place] [facility] [facility] Apr 03, 2024 01:15 PM AMBULATORY - MEDICINE [facility] NGTON [facility] Apr 27, 2024 08:30 AM AMBULATORY - MEDICINE [facility] Apr 27, 2024 09:15 AM [facility] [place] [facility] Apr 27, 2024 10:00 AM [facility] Apr 27, 2024 11:00 AM [facility] [place] [facility] Apr 28, 2024 10:00 AM [facility] [place] [facility] May 17, 2024 01:00 PM [facility] May 24, 2024 10:00 AM AMBULATORY - MEDICINE [facility] PENG [facility] May 24, 2024 10:30 AM AMBULATORY - NONE [facility] Wright [facility] May 24, 2024 11:00 AM AMBULATORY - MEDICINE [facility] Social History: Smoking Status (Most current) and Tobacco Use (All prior to encounter date) This section includes the most current, and the historical, smoking and tobacco- related health factors from the [place] facility where the Encounter took place. Current Smoking Status This section includes the most current smoking, or tobacco-related health factor, from the [place] facility where the Encounter took place. Date/Time Current Smoking Status Comment Facil ity Jan 21, 2016 04:53 PM NON-TOBACCO USE INPATIENT [facility] Tobacco Use History This section includes a history of the smoking, or tobacco-related health factors, that were collected on or before the date of the Encounter. The data comes from the [place] facility where the Encounter took place. Date/Time Smoking Status/Tobacco Use Comment F acility Jan 13, 2016 06:51 AM V9 QUIT TOBACCO >7 YEARS AGO [facility] Advance Directives: All historical and current Section Date Range: From patient's date of to the date document was created. This section includes ALL of a patient's completed or amended [place] Advance and Rescinded Directives. The entries below indicate that a directive exists for the patient, but an actual copy is not included with this document. The data comes from all [place] facilities. Date Advance Directives Provider Source Apr 16, 2010 ADVANCE DIRECTIVE ALEXEY [facility] Encounter Notes: All associated encounter notes This section contains the clinical notes associated to the Encounter. Date/Time Encounter Note(s) Provider Source Dec 27, 2023 01:36 PM TELEPHONE ENCOUNTE R NOTE: LOCAL TITLE: TELEPHONE CARE NOTE STANDARD TITLE: TELEPHONE ENCOUNTER NOTE DATE OF NOTE: DEC 27, 2023@13:36 ENTRY DATE: DEC 27, 2023@13:36:12 AUTHOR: JOSHUA HARMAN EXP COSIGNER: URGENCY: STATUS: COMPLETED Transfer to for VS /es/ JOSHUA HARMAN PATIENT SERVICES CHIEF NUCLEAR MEDICINE TECHNOLOGIST Signed: 12/27/2023 13:36 [facility]
--- OUTSIDE RECORDS SUMMARY | 2023-12-31 06:22 | XMS_ITS ---
Author Name [facility] [place] Address [address] [place] [address] Care Team Providers Care Architectural Wood Model Maker Name Role Phone IRASEMA GIRON Primary Care Provider Unavailab le Insurance Providers: All historical and current [...] PART A Jun 04, 2009 PART A [id number] [id number] [place] PATIENT MEDICARE (WNR) MEDICARE (M) PART A Jun 04, 2009 PART A [id number] [place] PATIENT MEDICARE (WNR) MEDICARE (M) PART A Jun 04, 2009 PART A [id number] [place] PATIENT MEDICARE (WNR) MEDICARE (M) PART A Jun 04, 2009 PART A [id number] [place] PATIENT MEDICARE (WNR) MEDICARE (M) PART A Jun 04, 2009 PART A [id number] [place] PATIENT Selected Encounter This section includes the information on record at [place] for the Encounter. Date/Time Encounter Type Encounter Description Reason Pro vider Source Dec 31, 2023 10:22 AM Outpatient Encounter ADMIN PAT ACTIVTIES (MASNONCT) IHE Encounter Template Text not used by VA Plan of Treatment: Future Appointments (+ 6 months) and Future Tests (+/- 45 days) The Plan of Treatment section includes future care activities for the patient [facility] [place] [facility] This section includes future appointments and future orders which are active, pending or scheduled. Future Appointments This section includes appointments that were scheduled to occur 6 months from the date of the Encounter, up to a maximum of 20 appointments. The data comes from all [place] treatment facilities. Appointment Date/Time Appointment Type Appointme nt Facility Name Feb 04, 2024 10:30 AM [facility] [place] [facility] Feb 14, 2024 11:00 AM [facility] [place] [facility] Feb 14, 2024 01:20 PM [facility] [place] [facility] Feb 24, 2024 09:00 AM [facility] Feb 29, 2024 09:00 AM [facility] Mar 13, 2024 11:00 AM [facility] [place] [facility] [facility] Mar 20, 2024 01:00 PM AMBULATORY - MEDICINE [facility] Mar 20, 2024 01:01 PM AMBULATORY - MEDICINE [facility] NGTON [facility] Mar 28, 2024 04:00 PM [place]ORY [place] [facility] Apr 03, 2024 01:15 PM AMBULATORY - MEDICINE [facility] NGTON [facility] Apr 27, 2024 08:30 AM AMBULATORY - MEDICINE [facility] Apr 27, 2024 09:15 AM [facility]ORY - [facility]ONE [place] Apr 27, 2024 10:00 AM [facility] Apr 27, 2024 11:00 AM [facility] - [facility]ONE [place] [facility] Apr 28, 2024 10:00 AM [facility]ORY - [facility]ONE [place] [facility] May 17, 2024 01:00 PM [facility] May 24, 2024 10:00 AM [facility] May 24, 2024 10:30 AM AMBULATORY - NONE LIZA Wright [facility] May 24, 2024 11:00 AM AMBULATORY - MEDICINE [facility] Jun 08, 2024 08:01 AM AMBULATORY - MEDICINE [facility] Social History: Smoking Status (Most current) and Tobacco Use (All prior to encounter date) This section includes the most current, and the historical, smoking and tobacco- related health factors from the [place] facility where the Encounter took place. Current Smoking Status This section includes the most current smoking, or tobacco-related health factor, from the [place] facility where the Encounter took place. Date/Time Current Smoking Status Comment Facil ity Jan 21, 2016 04:53 PM NON-TOBACCO USE INPATIENT [facility] Tobacco Use History This section includes a history of the smoking, or tobacco-related health factors, that were collected on or before the date of the Encounter. The data comes from the [place] facility where the Encounter took place. Date/Time Smoking Status/Tobacco Use Comment F acility Jan 13, 2016 06:51 AM V9 QUIT TOBACCO >7 YEARS AGO [facility] Advance Directives: All historical and current Section Date Range: From patient's date of to the date document was created. This section includes ALL of a patient's completed or amended [place] Advance and Rescinded Directives. The entries below indicate that a directive exists for the patient, but an actual copy is not included with this document. The data comes from all [place] facilities. Date Advance Directives Provider Source Apr 16, 2010 ADVANCE DIRECTIVE ALEXEY [facility]PHERD [facility] Encounter Notes: All associated encounter notes This section contains the clinical notes associated to the Encounter. Date/Time Encounter Note(s) Provider Source Dec 31, 2023 10:22 AM ADMINISTRATIVE NOT E: LOCAL TITLE: CLERICAL/ADMIN NOTE STANDARD TITLE: ADMINISTRATIVE NOTE DATE OF NOTE: DEC 31, 2023@10:22 ENTRY DATE: DEC 31, 2023@10:22:47 AUTHOR: VICTORIA ROSALES EXP COSIGNER: URGENCY: STATUS: COMPLETED CLERICAL/ADMIN NOTE Has ADDENDA called to schedule and unable to reach/left vm.. if calls back please teams me /mona/ Victoria Rosales Advanced Rubber Stamp Maker Signed: 12/31/2023 10:23 01/26/2024 ADDENDUM STATUS: COMPLETED PER 03/18/2023 RTC ORDER spoke with and scheduled 02/04/2024@10:30 letter mailed /mona/ Victoria Rosales Advanced Rubber Stamp Maker Signed: 01/26/2024 09:02 VICTORIA ROSALESREGENCY MERIDIANLeona [facility]
--- OUTSIDE RECORDS SUMMARY | 2024-02-04 06:30 | XMS_ITS | Encounter Summary ---
Author Name [facility] [place] Organization [facility] [place] Address [address] [place] [address] Care Team Providers Care Sports Writer Name Role Phone CAMMIE RODRIGUEZ Primary Care Provider Unavail le Insurance Providers: [...] PART A Jun 04, 2009 PART A [id number] [place] PATIENT MEDICARE (WNR) MEDICARE (M) PART A Jun 04, 2009 PART A [id number] [place] PATIENT MEDICARE (WNR) MEDICARE (M) PART A Jun 04, 2009 PART A [id number] [place] PATIENT MEDICARE (WNR) MEDICARE (M) PART A Jun 04, 2009 PART A [id number] [place] PATIENT MEDICARE (WNR) MEDICARE (M) PART A Jun 04, 2009 PART A [id number] [place] PATIENT Selected Encounter This section includes the information on record at [place] for the Encounter. Date/Time Encounter Type Encounter Description Reason Provider Source Feb 04, 2024 10:30 AM OFFICE O/P EST MOD 30 MIN PRIMARY CARE/MEDICINE ICD-10-CM J44.9 Chronic obstructive pulmonary disease, unspecified SEBASTIAN ERNANDEZ Encounter Template Text not used by [place] Assessments - Encounter Diagnoses This section includes the primary and secondary diagnoses documented for the Encounter. Date/Time Primary/Secondary Diagnosis Diagnosis Name Provider Source Feb 04, 2024 11:30 AM PRIMARY Chronic obstructive pulmonary disease, unspecified AVSCONNECTOR,[facility] Feb 04, 2024 11:30 AM SECONDARY Contact with and exposure to other hazardous substances [facility] Feb 04, 2024 11:30 AM SECONDARY Counseling, unspecified [facility] Feb 04, 2024 11:30 AM SECONDARY Essential (primary) hypertension [facility] Feb 04, 2024 11:30 AM SECONDARY Heart failure, unspecified AVSCONNECTOR, [facility] Feb 04, 2024 11:30 AM SECONDARY Occlusion and stenosis of unspecified carotid artery AVSCONNECTOR, [facility] Feb 04, 2024 11:30 AM SECONDARY Old myocardial infarction [facility] Feb 04, 2024 11:30 AM SECONDARY Other fecal abnormalities AVSCONNECTOR, [facility] Plan of Treatment: Future Appointments (+ 6 months) and Future Tests (+/- 45 days) The Plan of Treatment section includes future care activities for the patient from all [place] [facility]. This section includes future appointments and future orders which are active, pending or scheduled. Future Appointments This section includes appointments that were scheduled to occur 6 months from the date of the Encounter, up to a maximum of 20 appointments. The data comes from all [place] treatment [facility]. Appointment Date/Time Appointment Type Appointme nt Facility Name Feb 14, 2024 11:00 AM AMBULATORY - SURGERY [facility] Feb 14, 2024 01:20 PM AMBULATORY - SURGERY [facility] Feb 24, 2024 09:00 AM AMBULATORY - MEDICINE [facility] Feb 29, 2024 09:00 AM AMBULATORY - MEDICINE [facility] Mar 13, 2024 11:00 AM AM[place]ULATORY - NONE [place] [facility] Mar 20, 2024 01:00 PM AMBULATORY - MEDIC[facility] Mar 20, 2024 01:01 PM AMBULATORY - MEDICINE [facility] Mar 28, 2024 04:00 PM [facility]ORY - NONE [place] [facility] Apr 03, 2024 01:15 PM [facility] Apr 27, 2024 08:30 AM AMBULATORY - MEDICINE [facility] Apr 27, 2024 09:15 AM [facility] - [facility]ONE [place] [facility] Apr 27, 2024 10:00 AM [facility]IC[facility] Apr 27, 2024 11:00 AM AMBULATORY - NONE [place] [facility] Apr 28, 2024 10:00 AM AM[place]ORY - NONE [place] [facility] May 17, 2024 01:00 PM AMBULATORY - MEDICINE [facility] May 24, 2024 10:00 AM AMBULATORY - MEDICINE [facility] May 24, 2024 10:30 AM AMBULATORY - NONE [place] [facility] May 24, 2024 11:00 AM AMBULATORY - MEDICINE [facility] Jun 08, 2024 08:01 AM AMBULATORY - MEDICINE [facility] Active, Pending, and Scheduled Orders This section includes a listing of several types of active, pending, and scheduled orders, including clinic medications orders, diagnostic test orders, procedure orders and consult orders; where the start date of the order is 45 days before the date of the Encounter or 45 days after the date of theEncounter. The data comes from all [place] treatment facilities. Test Date/Time Test Type Test Details Facility Name Mar 03, 2024 12:00 AM Laboratory - Chemi stry Order AUTOMATED DIFF [id number] BLOOD SP ONCE [facility] Lab Results: +/- 30 days of the encounter This section includes the Chemistry and Hematology Lab Results on record with DC for the patient. Radiology Reports and Pathology Reports are provided separately, in subsequent sections. Lab Results This section contains the Chemistry/Hematology Results that were resulted 30 days before or 30 daysafter the date of the Encounter. Date/Time Source Result Type Result - Unit Interpretation Reference Range Specimen Type Comment Feb 24, 2024 12:00 AM [facility] N OCCULT BLOOD FIT X1 SCREEN FECES Specimen Typ e: FECES No comment entered. Ordering Provider: SEBASTIAN ERNANDEZ Report Released Date/Time: Feb 04, 2024 11:20 AM Reporting Lab: [address] [id number] Performing Lab: [address] [address] OCCULT BLOOD (FIT) #1 OF 1 Negative Nega tive Vital Signs: All taken on the encounter date This section contains inpatient and outpatient Vital Signs collected on the date of the Encounter. Date/Time Temperature Pulse Blood Pressure Respiratory Rate SP02 Pain Height Weight Body Mass Index Source Feb 04, 2024 11:24 AM 150/74 [place] [facility] Feb 04, 2024 10:31 AM 85 163/84 [place] [facility] Feb 04, 2024 10:07 AM 97.8 85 171/82 20 97 4 [place] [facility] Social History: Smoking Status (Most current) and Tobacco Use (All prior to encounter date) This section includes the most current, and the historical, smoking and tobacco- related health factors from the DC facility where the Encounter took place. Current Smoking Status This section includes the most current smoking, or tobacco-related health factor, from the DC facility where the Encounter took place. Date/Time Current Smoking Status Comment Facil ity Mar 18, 2023 10:00 AM VA-TOBACCO FORMER USER [facility] Tobacco Use History This section includes a history of the smoking, or tobacco-related health factors, that were collected on or before the date of the Encounter. The data comes from the DC facility where the Encounter took place. Date/Time Smoking Status/Tobacco Use Comment F acility Mar 18, 2023 10:00 AM DC-TOBACCO QUIT 5 TO < 15 YRS [facility] Apr 30, 2022 11:00 AM VA-TOBACCO FORMER USER [facility] Apr 30, 2022 11:00 AM VA-TOBACCO QUIT 15 YRS OR MORE [facility] Apr 24, 2021 09:30 AM VA-TOBACCO FORMER USER [facility] Apr 24, 2021 09:30 AM VA-TOBACCO QUIT 5 TO < 15 YRS [facility] Feb 14, 2021 10:00 AM VA-TOBACCO FORMER USER [facility] Feb 14, 2021 10:00 AM VA-TOBACCO QUIT 15 YRS OR MORE [facility] Apr 20, 2018 11:36 AM VA-TOBACCO FORMER USER [facility] Apr 20, 2018 11:36 AM VA-TOBACCO QUIT 15 YRS OR MORE [facility] Feb 09, 2017 10:00 AM V9 QUIT TOBACCO >7 YEARS AGO [facility] Feb 11, 2015 10:54 AM V9 QUIT TOBACCO >7 YEARS AGO [facility] Mar 16, 2014 08:35 AM V9 QUIT TOBACCO >1 2 MO & <7 YRS AGO [facility] Mar 16, 2014 08:35 AM V9 TOBACCO OFFERED [facility] Advance Directives: All historical and current Section Date Range: From patient's date of to the date document was created. This section includes ALL of a patient's completed or amended DC Advance and Rescinded Directives. The entries below indicate that a directive exists for the patient, but an actual copy is not included with this document. The data comes from all [place] facilities. Date Advance Directives Provider Source Apr 16, 2010 ADVANCE DIRECTIVE ALEXEY SHEPHERD Radiology Reports: +/- 30 days of the encounter Radiology Reports For cases when an order for radiology services may have been completed prior to the date of the Encounter, the report list includes the Radiology Reports that were completed up to 30 days before dateof the Encounter. For cases when an order for radiology services may have been completed after the date of the Encounter, the report list also includes the Radiology Reports that were completed up to30 days after date of the Encounter. The data comes from all [place] treatment facilities. Date/Time Radiology Report Provider Source Feb 14, 2024 11:06 AM SEGMENTAL PRESSURE S, LOWER EXT(DENISE) UNILAT: MARIZA JAY [id number] -[id number] M Exm Date: FEB 14, 2024@11:06 Req Phys: FLAVIO ANGELA Loc: ZZLEX VS/FOLLOWUP/ATT5 (Req'g Img Loc: VASCULAR LAB TESTING/CDD Service: Unknown (Case [id number] COMPLETE) SEGMENTAL PRESSURES, LOWER EXT(AB(VAS Detailed) CPT:67093 Reason for Study: SEE CLINICAL HISTORY Clinical History: DENISE's/Segs Indications: Claudication Report Status: Verified Date Reported: FEB 15, 2024 Date Verified: FEB 15, 2024 Copy Manager E-Sig: Report: SEGMENTAL PRESSURES AND ANKLE-BRACHIAL INDEX OF LOWER EXTREMITIES Findings: Right: Right brachial arterial pressure is 172 mmHg. Monophasic waveforms noted in the right posterior tibial and right dorsalis pedis arteries. Right toe pressure is 8 mmHg. Right-sided DENISE is 0.60. Left: Left brachial arterial pressure is 183 mmHg. Monophasic waveforms noted in the left posterior tibial and left dorsalis pedis arteries. Left toe pressure is 45 mmHg. Left-sided DENISE is 0.52. Impression: Right: Abnormal study. Hemodynamically significant disease is identified. Moderate arterial insufficiency is present at rest. Left: Abnormal study. Hemodynamically significant disease is identified. Moderate arterial insufficiency is present at rest. Primary Diagnostic Code: NO ALERT REQUIRED Primary Interpreting Staff: DARLIN STONE, VASCULAR SURGERY ATTENDING Verified by electrician station assistant for DARLIN STONE /[facility] Encounter Notes: All associated encounter notes This section contains the clinical notes associated to the Encounter. Date/Time Encounter Note(s) Provider Source Mar 03, 2024 08:56 AM PRIMARY CARE NOTE: LOCAL TITLE: Pc Chart Review Note STANDARD TITLE: PRIMARY CARE NOTE DATE OF NOTE: MAR 03, 2024@08:56 ENTRY DATE: MAR 03, 2024@08:56:39 AUTHOR: SEBASTIAN ERNANDEZ COSIGNER: URGENCY: STATUS: COMPLETED PACT RN: Would you pls contact this for follow-up on asthma/COPD exacerbation? Pls verify inhaled medication adherence. How many breathing treatments via neb is he doing per day? If he CONTINUES increased productive cough and shortness of breath he will be needing a CXR and CBC w/diff and we will need input from his pulmonology team (maybe it is time to consider a biologic therapy), if it is worsening then I recommend in-person evaluation, consideration of ER. Thank you for the help! /mona/ SEBASTIAN ERNADNEZ PRIMARY CARE HYDRAULIC PRESS IN OPERATOR Signed: 03/03/2024 09:02 Receipt Acknowledged By: 03/03/2024 10:51 /mona/ CYRUS Neumann, RN Pc Box Car Washer SEBASTIAN ERNANDEZ [facility] Feb 04, 2024 02:30 PM ADDENDUM: LOCAL TITLE: Addendum STANDARD TITLE: ADDENDUM DATE OF NOTE: FEB 04, 2024@14:30:23 ENTRY DATE: FEB 04, 2024@14:30:23 AUTHOR: SEBASTIAN ERNANDEZ EXP COSIGNER: URGENCY: STATUS: COMPLETED PACT CLAIM AUDITOR: Pls mail out a FIT test for this . Thank you. /mona/ SEBASTIAN ERNANDEZ PRIMARY CARE HYDRAULIC PRESS IN OPERATOR Signed: 02/04/2024 14:31 Receipt Acknowledged By: 02/04/2024 15:52 /mona/ Catherine Minor LPN LICENSED PRACTICAL NURSE --- Original Document --- 02/04/24 PC PROGRESS NOTE: ID: 73 year old MALE Chief Complaint: Ongoing management of active/chronic medical problems HPI: Here today w/increased productive cough and shortness of breath. Cleared large mucous plug this morning after coughing a lot. Was previously on oxygen from the DC, but this has been discontinued. Reports increased dyspnea since that time. Has had multiple cardiac stents. When last in nonVA hospital had SaO2 drop during sleep. Sometimes wearing spouse's oxygen. REVIEW OF SYSTEMS: ROS: As above, otherwise: - General: NO fevers / chills / weight loses/gains - C/V: NO chest pain / palpitations / leg swelling - Resp: YES cough / sputum / SOB or SAWYER - GI: NO nausea / vomiting / diarrhea / constipation / black or bloody stools - : YES nocturia q 2-3 hrs which states is baseline - PSYCH: YES C-PTSD / insomnia Problem List: Active problems - Computerized Problem List is the source for the followin. Heart failure 2. Vitamin D deficiency 3. Old myocardial infarction 4. History of cardiac arrest 5. Sensorineural hearing loss, bilateral 6. Mixed hyperlipidemia 7. 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 Peripheral arterial occlusive disease 9. Renal artery stenosis 10. Moderate chronic obstructive pulmonary disease LDCT done 05/2023 and repeat in 05/2024 11. Anxiety (SNOMED CT 39091708) 12. Depression (SNOMED CT 20339039) 13. Benign essential hypertension (SNOMED CT 5898244) 14. Carotid artery stenosis 15. Gastroesophageal reflux disease 16. Posttraumatic stress disorder 17. Tinnitus 18. Hearing loss 19. Spinal stenosis in cervical region 20. 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 CALL ANTICOAGULATION CLINIC [phone] WITH QUESTIONS OR CONCERNS 4) ATORVASTATIN CALCIUM 80MG TAB TAKE ONE TABLET BY ACTIVE MOUTH DAILY FOR CHOLESTEROL -DO NOT DRINK GRAPEFRUIT JUICE WHILE ON THIS DRUG 5) BENRALIZUMAB 30MG/ML INJ PEN 1ML INJECT 1ML UNDER THE ACTIVE SKIN MONTHLY FOR 3 MONTHS, THEN INJECT 1ML EVERY 2 MONTHS FOR ASTHMA 6) BISOPROLOL FUMARATE 10MG TAB TAKE ONE TABLET BY MOUTH ACTIVE DAILY FOR BLOOD PRESSURE/HEART 7) EPINEPHRINE (EQV-EPI-PEN) 0.3MG/0.3ML INJECT 0.3MG/1 ACTIVE SYRINGE INTO THE MUSCLE DIRECTED ONCE NEEDED FOR SEVERE ALLERGIC REACTION 8) ERGOCALCIF 1,250MCG (D2-50,000UNIT) CAP TAKE ONE ACTIVE CAPSULE BY MOUTH EVERY SEVEN DAYS FOR SUPPLEMENT 9) FLUTICAS 500/SALMETEROL 50 INHL DISK 60 INHALE 1 ACTIVE INHALATION BY MOUTH TWICE A DAY FOR BREATHING -RINSE MOUTH AND SPIT AFTER EACH USE 10) ISOSORBIDE MONONITRATE 30MG SA TAB TAKE ONE TABLET BY ACTIVE MOUTH DAILY TO PREVENT CHEST PAIN 11) NITROGLYCERIN 0.4MG SL TAB BTL 25 DISSOLVE ONE TABLET ACTIVE UNDER THE TONGUE EVERY 5 MINUTES UP TO 3 DOSES FOR CHEST PAIN -IF NO RELIEF CALL 911 12) TIOTROPIUM 2.5MCG/ACTUAT 60D ORAL INHL INHALE 2 ACTIVE INHALATIONS BY MOUTH DAILY FOR BREATHING Inactive Outpatient Medications Status 1) OXYCODONE 5MG TAB TAKE ONE TABLET BY MOUTH EVERY 6 HOURS NEEDED FOR PAIN MAY CAUSE DROWSINESS 2) RSV VACCINE LYPHL INJ INJECT 1 VIAL (0.5ML) INTO THE MUSCLE DIRECTED ONCE FOR VACCINATION Active Non-VA Medications Status 1) Non-VA NO KNOWN NON-VA MEDS PT ASKED ABOUT NON-VA ACTIVE MEDS MISCELLANEOUS DIRECTED 15 Total Medications SH: ex-smoker [id number] 1-2ppd; stopped in 2007 Exam: 150/74 manual BP re-check by CAMP COUNSELOR HR 85 RR 16 Sa02 97% GENERAL: A&OX3, NAD HEENT: Head: normocephalic, midline. Sclera anicteric. Wearing glasses. RESP: Mild accessory muscle use w/conversation. Scattered exp wheezes throughout, left>right. No crackles or rhonchi. CV: S1S2 regular. No murmur, rubs or gallops. Radial pulses 2+ bilat. ABD: Flat. BT normoactive. Abd soft, nontender. INTEG: Grossly pink/warm/dry Extremities: Dry, flaking skin BLE. Mild lower leg varicosities RLE. No edema. MSK: Gross strength 5/5. Gait smooth, slowed PSYCH: Pleasant. Cooperative. Appropriately dressed/groomed. Assessment and Plan: 1. Asthma/COPD Exacerbation: -prednisone 40mg PO q AM x 4 days for mail ( declines same-day pick[facility]up @ [facility]) -PACT phone RN follow-up, pls contact PACT if unimproved or if worsening - verbalizes understanding 911/ER for fever, dyspnea, chest pain -consider Augmentin, deferred -continue tiotropium 2 puffs q day -continue albuterol MDI w/spacer prn -continue Duonebs QID -continue fluticasone/salmeterol 50/500 2 puffs BID w/good oral care after -continue Benralizumab 30mg SQ q 3 months -[facility] MED SLEEP HYDRAULIC PRESS IN OPERATOR PHONE Consult Appt. on 02/24/24 @ 09:00 12/20/23 SLEEP CONSULT re: ?nocturnal hypoxia 2. CAD/HTN: -BP over goal today -LDL 75 07/2023, slightly over goal, recommend nutrition (less meat, continue limiting ice cream), consider addition of ezetimibe, repeat lipids in 3-6 months -continue isosorbide 30mg PO q day -continue atorvastatin 80mg PO q day -continue bisoprolol 10mg PO q day -allergy to QUENTIN-I lisinopril=dyspnea -new BP cuff/log today -PACT phone RN follow-up -consider HCTZ 12.5mg PO q AM, defer given is w/o morning meds yet today -continue DC cardiology, follow-up due around Mar 2024 3. H/O +FIT: -older brother had colon CA age 74 -repeat FIT -declines colonoscopy @ this time, had appt w/[facility], pls reconsider risk/benefit and states he would consider scope if second FIT+ 4. HF: -continue bisoprolol 10mg PO q day -continue [facility] cardi[facility], follow-up due around Mar 2024 5. Exposure to Hazardous Substance, Agent [place]: -contact local Service Organization (VSO) such as [facility] ([facility]) [email or web address], Main Building Room [address] Cell: ext [phone] [employer] [facility], Room 15 Wednesday [phone] For appt email: [email or web address] ([employer]) [email or web address] [employer] ([employer]) -continue [facility] care for conditions as in problem list/assessment/plan The /caregiver voiced understanding of topics covered/discussed in today's visit. Reviewed and reconciled medication list with patient and/or caregiver: No discrepancies were found The updated medication list was given to the patient/caregiver by: Handing physical copy at the end of visit Follow up: RTC: MANNY PAUL 11 MONTHS Toxic Exposure Screening Follow-Up: Exposure Concern(s): 02/04/2024 Agent [place] - Toxic Exposure Concern Airborne Hazards/Open Burn Pit - Toxic Exposure Concern Follow-up Question(s): 02/04/2024 Benefits/Claims Questions - Toxic Exposure Concern Health/Medical Questions - Toxic Exposure Concern Registry Questions - Toxic Exposure Concern [facility] Enrollment Questions - Toxic Exposure Concern [place]/caregiver has health or medical concerns related to their concern of environmental exposure. Concern: my lungs are bad The following connections were provided to the /caregiver: Consult/Referral to Registry Program Bartender Manager/Organization (VSO) [place] [facility] [place] Affairs OR HTN Assess for Elevated BP>=140/90: The patient's blood pressure is usually adequately controlled. No medication changes are indicated at this time. Comment: gave new home BP/cuff log for PACT edge beader to follow-up Diagnostic Colonoscopy: (+) FIT/FOBT identified. A diagnostic Colonoscopy is due based on information available to this reminder. Defer diagnostic reminder for 1 month. Reason for deferral: given FIT for repeat, agreeable to re-consideration colonoscopy if second FIT also + /es/ SEBASTIAN ERNANDEZ PRIMARY CARE HYDRAULIC PRESS IN OPERATOR Signed: 02/04/2024 12:16 02/04/2024 ADDENDUM STATUS: UNSIGNED You may not VIEW this UNSIGNED Addendum. SEBASTIAN ERNANDEZ [facility] Feb 04, 2024 12:16 PM MEDICATION MGT NOTE: LOCAL TITLE: OUTPATIENT ESSENTIAL MEDICATION LIST FOR REVIEW (EM STANDARD TITLE: MEDICATION MGT NOTE DATE OF NOTE: FEB 04, 2024@12:16 ENTRY DATE: FEB 04, 2024@12:16:53 AUTHOR: SEBASTIAN ERNANDEZ EXP COSIGNER: URGENCY: STATUS: COMPLETED Review of medications include: Patient allergies (Remote and Local) and active and pending prescriptions dispensed from this DC (local) and dispensed from another DC or DoD facility (remote and pending) as well as local inpatient orders (pending and active) and clinic medications (IMOs), locally documented non-VA medications and local prescriptions that have or been discontinued in the past 90 days. With the exception of Allergies, if a category is not listed below, it means there were no relevant medications for the patient. ALLERGIES: LISINOPRIL FACILITY ALLERGY/ADR -------- 516^[facility]^516 VACCINES ACTIVE OUTPATIENT MEDICATIONS LOCAL/REMOTE ALBUTEROL 3/IPRATROP 0.5MG/3ML INHL 3ML Directions: USE 1 AMP (3ML) IN NEBULIZER FOUR TIMES A DAY FOR BREATHING Quantity: 120 for 30 days Issued: 07/14/23 Filled: 11/11/23 Expires: 07/14/24 Refills: 1 Status: ACTIVE ALBUTEROL 90MCG (CFC-F) 200D ORAL INHL Directions: INHALE 2 PUFFS BY INHALATION EVERY 4 HOURS NEEDED FOR WHEEZING, COUGHING OR SHORTNESS OF BREATH Quantity: 3 for 90 days Issued: 12/09/23 Filled: 01/27/24 Expires: 12/09/24 Refills: 3 Status: ACTIVE APIXABAN 5MG TAB Directions: TAKE ONE TABLET BY MOUTH TWICE A DAY TO THIN BLOOD. CALL ANTICOAGULATION CLINIC [phone] WITH QUESTIONS OR CONCERNS Quantity: 120 for 60 days Issued: 06/07/23 Filled: 11/23/23 Expires: 06/07/24 Refills: 3 Status: ACTIVE ATORVASTATIN CALCIUM 80MG TAB Directions: TAKE ONE TABLET BY MOUTH DAILY FOR CHOLESTEROL -DO NOT DRINK GRAPEFRUIT JUICE WHILE ON THIS DRUG Quantity: 90 for 90 days Issued: 07/14/23 Filled: 11/11/23 Expires: 07/14/24 Refills: 2 Status: ACTIVE BENRALIZUMAB 30MG/ML INJ PEN 1ML Directions: INJECT 1ML UNDER THE SKIN MONTHLY FOR 3 MONTHS, THEN INJECT 1ML EVERY 2 MONTHS FOR ASTHMA Quantity: 3 for 90 days Issued: 06/24/23 Filled: 06/25/23 Expires: 06/24/24 Refills: 3 Status: ACTIVE BISOPROLOL FUMARATE 10MG TAB Directions: TAKE ONE TABLET BY MOUTH DAILY FOR BLOOD PRESSURE/HEART Quantity: 90 for 90 days Issued: 07/14/23 Filled: 11/11/23 Expires: 07/14/24 Refills: 2 Status: ACTIVE EPINEPHRINE (EQV-EPI-PEN) 0.3MG/0.3ML Directions: INJECT 0.3MG/1 SYRINGE INTO THE MUSCLE DIRECTED ONCE NEEDED FOR SEVERE ALLERGIC REACTION Quantity: 2 for 30 days Issued: 08/05/23 Filled: 11/11/23 Expires: 08/05/24 Refills: 0 Status: ACTIVE ERGOCALCIF 1,250MCG (D2-50,000UNIT) CAP Directions: TAKE ONE CAPSULE BY MOUTH EVERY SEVEN DAYS FOR SUPPLEMENT Quantity: 13 for 90 days Issued: 07/15/23 Filled: 11/11/23 Expires: 07/15/24 Refills: 0 Status: ACTIVE FLUTICAS 500/SALMETEROL 50 INHL DISK 60 Directions: INHALE 1 INHALATION BY MOUTH TWICE A DAY FOR BREATHING -RINSE MOUTH AND SPIT AFTER EACH USE Quantity: 3 for 90 days Issued: 07/14/23 Filled: 11/30/23 Expires: 07/14/24 Refills: 2 Status: ACTIVE ISOSORBIDE MONONITRATE 30MG SA TAB Directions: TAKE ONE TABLET BY MOUTH DAILY TO PREVENT CHEST PAIN Quantity: 90 for 90 days Issued: 07/16/23 Filled: 07/17/23 Expires: 07/16/24 Refills: 3 Status: ACTIVE NITROGLYCERIN 0.4MG SL TAB BTL 25 Directions: DISSOLVE ONE TABLET UNDER THE TONGUE EVERY 5 MINUTES UP TO 3 DOSES FOR CHEST PAIN -IF NO RELIEF CALL 911 Quantity: 1 for 90 days Issued: 06/21/23 Filled: 11/11/23 Expires: 06/21/24 Refills: 2 Status: ACTIVE TIOTROPIUM 2.5MCG/ACTUAT 60D ORAL INHL Directions: INHALE 2 INHALATIONS BY MOUTH DAILY FOR BREATHING Quantity: 3 for 90 days Issued: 07/14/23 Filled: 11/30/23 Expires: 07/14/24 Refills: 2 Status: ACTIVE No remote medications found. PENDING OUTPATIENT MEDICATIONS (LOCAL/REMOTE): PREDNISONE 20MG TAB Directions: TAKE TWO TABLETS BY MOUTH EVERY MORNING Quantity: 8 Special: TAKE TWO TABLETS PO QAM Status: PENDING No remote medications found. ACTIVE NONVA MEDICATIONS (LOCAL): NO KNOWN NON-VA MEDS Directions: PT ASKED ABOUT NON-VA MEDS MISCELLANEOUS DIRECTED Status: ACTIVE OUTPATIENT MEDICATIONS (LOCAL)WITHIN 90 DAYS: No local medications found. DISCONTINUED OUTPATIENT MEDICATIONS (LOCAL) WITHIN 90 DAYS: ALBUTEROL 90MCG (CFC-F) 200D ORAL INHL Directions: INHALE 2 PUFFS BY INHALATION EVERY 4 HOURS NEEDED FOR WHEEZING, COUGHING OR SHORTNESS OF BREATH Quantity: 3 for 90 days Issued: 11/03/23 Filled: 11/08/23 Expires: 02/01/24 Refills: 0 Status: DISCONTINUED ISOSORBIDE MONONITRATE 30MG SA TAB Directions: TAKE ONE TABLET BY MOUTH DAILY TO PREVENT CHEST PAIN Quantity: 30 for 30 days Issued: 06/01/23 Filled: 06/01/23 Expires: 06/01/24 Refills: 5 Status: DISCONTINUED (EDIT) CLINIC MEDICATIONS (LOCAL): No local medications found. /mona/ SEBASTIAN ERNANDEZ PRIMARY CARE HYDRAULIC PRESS IN OPERATOR Signed: 02/04/2024 12:17 SEBASTIAN ERNANDEZ [facility] Feb 04, 2024 11:31 AM PHARMACY NOTE: LOCAL TITLE: AFTER VISIT SUMMARY (AVS) STANDARD TITLE: PHARMACY NOTE DICT DATE: FEB 04, 2024@11:31:17 ENTRY DATE: FEB 04, 2024@11:31:18 DICTATED BY: SEBASTIAN ERNANDEZ EXP COSIGNER: URGENCY: STATUS: COMPLETED The patient was provided with a copy of an after-visit summary at the conclusion of the visit. The after-visit summary includes information pertaining to the patient's encounter, including diagnoses, vital signs, medications, and new orders, as well as a list of any any upcoming appointments and information regarding the patient's ongoing care. The patient's medications were reviewed with the patient by the provider and were provided to the patient as an updated list of medications. The patient was instructed to inform the provider of any medication changes or discrepancies that were noted. Otherwise, the patient was instructed to continue the medications as prescribed. A copy of the after-visit summary provided to the patient is available in [facility] [facility]. SCANNED DOCUMENT SIGNATURE NOT REQUIRED Electronically Filed: 02/04/2024 by: SEBASTIAN ERNANDEZ PRIMARY CARE HYDRAULIC PRESS IN OPERATOR SEBASTIAN ERNANDEZ [facility] Feb 04, 2024 11:08 AM ADDENDUM: LOCAL TITLE: Addendum STANDARD TITLE: ADDENDUM DATE OF NOTE: FEB 04, 2024@11:08:20 ENTRY DATE: FEB 04, 2024@11:08:22 AUTHOR: ANNABELLA SCHAEFFER EXP COSIGNER: URGENCY: STATUS: COMPLETED PAVE Foot Check: A complete foot check was completed at this encounter. VISUAL INSPECTION: Includes inspection for skin breaks, deformity, erythema, trauma, pallor on elevation, dependent rubor, nail deformities, extensive callus and pitting edema. Visual exam results: Abnormal Observations: Thickened toenails, Other:toenail fungus, extensive dryness and callousing. PEDAL PULSES: Includes palpation of dorsalis and posterior tibial pulses and signs/symptoms of vascular compromise like pain, pallor, parasthesia or paralysis. Present (even if diminished) Comment: bilateral pedal pulses present SENSORY CHECK: Includes 10 gram Monofilament ([place]) test of sensation. Intact (Greater than or equal to 80% of sites checked) Abnormal (Less than 80% of sites checked): Intact Comment: Patient had sensation in all 10 toes when monofilament was used, however patient reports numbness on the bottoms of feet. HIGH-RISK: HIGH RISK INFORMATION PROVIDED: 1. Advised patient that extra depth footwear with soft molded inserts and braces may be required. 2. Advised patient not to walk barefoot. 3. Explained the importance of daily foot checks. 4. Stressed the importance of daily foot hygiene, including bathing, complete drying and thorough inspection for changes. The patient verbalized understanding and was offered a detailed handout on diabetic foot care. Patient needs podiatry referral placed, providers Sebastian Ernandez APRN and Cammie Rodriguez APRN notified. /mona/ ANNABELLA SCHAEFFER LPN CLAIM AUDITOR Signed: 02/04/2024 11:18 Receipt Acknowledged By: 02/04/2024 14:32 /es/ SEBASTIAN ERNANDEZ PRIMARY CARE HYDRAULIC PRESS IN OPERATOR 02/04/2024 11:26 /es/ CAMMIE RODRIGUEZ NURSE PRACTITIONER --- Original Document --- 02/04/24 [facility]/emmanuelle Note: The patient was given a list of his current medications, instructed to review and discuss any changes or problems with their provider. Patient advised to carry a list of current medications and any allergies with them in the event of emergency situations. Yes - [place]/Caregiver verbalized understanding of topics discussed and education provided Provider notified of elevated B/P >/= 140/90. 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 [place]/caregiver believes the was exposed to the following while serving in the Armed Forces: Airborne Hazards and Open Burn Pit: [place]/caregiver was made aware of educational resources that includes information on the Registry Program, presumptive conditions and how to file a claim. Printed information was offered and provided if desired. [place]: /caregiver was made aware of educational resources that includes information on the Registry Program, presumptive conditions and how to file a claim. Printed information was offered and provided if desired. Health/Medical Questions All patients who report a health/medical concern will receive follow-up from a clinician. For urgent or emergent concerns, they were advised to follow local facility policy. Benefits/Claims Questions /caregiver was informed of local point of contact. [facility] Health Care Enrollment and Eligibility Questions [place]/caregiver was informed of local point of contact. Registry Questions /caregiver was informed of local point of contact. Contact information for local resources: Benefits/Claim Questions: Veterans Benefits Administration (VBA): [place] Healthcare Enrollment: Health Benefits: [phone] Ext. [phone] Registry Coordinator: Ext. [phone] Toxic Exposure Screening Follow-Up reminder is needed. Name of person notified: Carolina Rodriguez APRN notified Td / Tdap Immunization: The patient declines to receive the recommended dose of Td/Tdap vaccine. Immunization: TD(ADULT) UNSPECIFIED FORMULATION Refusal Reason: PATIENT DECISION Patient refuses all immunization(s) in the Td group Comment: Patient declined TDAP Date Documented: 02/04/24 10:28 Pneumococcal Conjugate Vaccine (PCV15/PCV20): Defer due to a PRECAUTION Reason: Patient had Prevnar 13 and pneumovax 23 vaccines. /mona/ ANNABELLA SCHAEFFER LPN PC CLAIM AUDITOR Signed: 02/04/2024 10:30 ANNABELLA SCHAEFFER [facility] Feb 04, 2024 10:38 AM PRIMARY CARE NOTE: LOCAL TITLE: PC PROGRESS NOTE STANDARD TITLE: PRIMARY CARE NOTE DATE OF NOTE: FEB 04, 2024@10:38 ENTRY DATE: FEB 04, 2024@10:38:25 AUTHOR: SEBASTIAN ERNANDEZ COSIGNER: URGENCY: STATUS: COMPLETED PC PROGRESS NOTE Has ADDENDA ID: 73 year old MALE Chief Complaint: Ongoing management of active/chronic medical problems HPI: Here today w/increased productive cough and shortness of breath. Cleared large mucous plug this morning after coughing a lot. Was previously [place] from the [place], but this has been discontinued. Reports increased dyspnea since that time. Has had multiple cardiac stents. [facility] had SaO2 drop during sleep. Sometimes wearing spouse's oxygen. REVIEW OF SYSTEMS: ROS: As above, otherwise: - General: NO fevers / chills / weight loses/gains - C/V: NO chest pain / palpitations / leg swelling - Resp: YES cough / sputum / SOB or SAWYER - GI: NO nausea / vomiting / diarrhea / constipation / black or bloody stools - : YES nocturia q 2-3 hrs which states is baseline - PSYCH: YES C-PTSD / insomnia Problem List: Active problems - Computerized Problem List is the source for the followin. Heart failure 2. Vitamin D deficiency 3. Old myocardial infarction 4. History of cardiac arrest 5. Sensorineural hearing loss, bilateral 6. Mixed hyperlipidemia 7. 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 Peripheral arterial occlusive disease 9. Renal artery stenosis 10. Moderate chronic obstructive pulmonary disease LDCT done 05/2023 and repeat in 05/2024 11. Anxiety (SNOMED CT 44266067) 12. Depression (SNOMED CT 68890584) 13. Benign essential hypertension (SNOMED CT 7776478) 14. Carotid artery stenosis 15. Gastroesophageal reflux disease 16. Posttraumatic stress disorder 17. Tinnitus 18. Hearing loss 19. Spinal stenosis in cervical region 20. 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 CALL ANTICOAGULATION CLINIC [phone] WITH QUESTIONS OR CONCERNS 4) ATORVASTATIN CALCIUM 80MG TAB TAKE ONE TABLET BY ACTIVE MOUTH DAILY FOR CHOLESTEROL -DO NOT DRINK GRAPEFRUIT JUICE WHILE ON THIS DRUG 5) BENRALIZUMAB 30MG/ML INJ PEN 1ML INJECT 1ML UNDER THE ACTIVE SKIN MONTHLY FOR 3 MONTHS, THEN INJECT 1ML EVERY 2 MONTHS FOR ASTHMA 6) BISOPROLOL FUMARATE 10MG TAB TAKE ONE TABLET BY MOUTH ACTIVE DAILY FOR BLOOD PRESSURE/HEART 7) EPINEPHRINE (EQV-EPI-PEN) 0.3MG/0.3ML INJECT 0.3MG/1 ACTIVE SYRINGE INTO THE MUSCLE DIRECTED ONCE NEEDED FOR SEVERE ALLERGIC REACTION 8) ERGOCALCIF 1,250MCG (D2-50,000UNIT) CAP TAKE ONE ACTIVE CAPSULE BY MOUTH EVERY SEVEN DAYS FOR SUPPLEMENT 9) FLUTICAS 500/SALMETEROL 50 INHL DISK 60 INHALE 1 ACTIVE INHALATION BY MOUTH TWICE A DAY FOR BREATHING -RINSE MOUTH AND SPIT AFTER EACH USE 10) ISOSORBIDE MONONITRATE 30MG SA TAB TAKE ONE TABLET BY ACTIVE MOUTH DAILY TO PREVENT CHEST PAIN 11) NITROGLYCERIN 0.4MG SL TAB BTL 25 DISSOLVE ONE TABLET ACTIVE UNDER THE TONGUE EVERY 5 MINUTES UP TO 3 DOSES FOR CHEST PAIN -IF NO RELIEF CALL 911 12) TIOTROPIUM 2.5MCG/ACTUAT 60D ORAL INHL INHALE 2 ACTIVE INHALATIONS BY MOUTH DAILY FOR BREATHING Inactive Outpatient Medications Status 1) OXYCODONE 5MG TAB TAKE ONE TABLET BY MOUTH EVERY 6 HOURS NEEDED FOR PAIN MAY CAUSE DROWSINESS 2) RSV VACCINE LYPHL INJ INJECT 1 VIAL (0.5ML) INTO THE MUSCLE DIRECTED ONCE FOR VACCINATION Active Non-VA Medications Status 1) Non-VA NO KNOWN NON-VA MEDS PT ASKED ABOUT NON-VA ACTIVE MEDS MISCELLANEOUS DIRECTED 15 Total Medications SH: ex-smoker [id number] 1-2ppd; stopped in 2007 Exam: 150/74 manual BP re-check by CAMP COUNSELOR HR 85 RR 16 Sa02 97% GENERAL: A&OX3, NAD HEENT: Head: normocephalic, midline. Sclera anicteric. Wearing glasses. RESP: Mild accessory muscle use w/conversation. Scattered exp wheezes throughout, left>right. No crackles or rhonchi. CV: S1S2 regular. No murmur, rubs or gallops. Radial pulses 2+ bilat. ABD: Flat. BT normoactive. Abd soft, nontender. INTEG: Grossly pink/warm/dry Extremities: Dry, flaking skin BLE. Mild lower leg varicosities RLE. No edema. MSK: Gross strength 5/5. Gait smooth, slowed PSYCH: Pleasant. Cooperative. Appropriately dressed/groomed. Assessment and Plan: 1. Asthma/COPD Exacerbation: -prednisone 40mg PO q AM x 4 days for mail ( declines same-day pick-up @ [facility]) -PACT phone RN follow-up, pls contact PACT if unimproved or if worsening - verbalizes understanding 911/ER for fever, dyspnea, chest pain -consider Augmentin, deferred -continue tiotropium 2 puffs q day -continue albuterol MDI w/spacer prn -continue Duonebs QID -continue fluticasone/salmeterol 50/500 2 puffs BID w/good oral care after -continue Benralizumab 30mg SQ q 3 months -[facility] SLEEP HYDRAULIC PRESS IN OPERATOR PHONE Consult Appt. on 02/24/24 @ 09:00 12/20/23 SLEEP CONSULT re: ?nocturnal hypoxia 2. CAD/HTN: -BP over goal today -LDL 75 07/2023, slightly over goal, recommend nutrition (less meat, continue limiting ice cream), consider addition of ezetimibe, repeat lipids in 3-6 months -continue isosorbide 30mg PO q day -continue atorvastatin 80mg PO q day -continue bisoprolol 10mg PO q day -allergy to QUENTIN-I lisinopril=dyspnea -new BP cuff/log today -PACT phone RN follow-up -consider HCTZ 12.5mg PO q AM, defer given is w/o morning meds yet today -continue [facility], follow-up due around Mar 2024 3. H/O +FIT: -older brother had colon CA age 74 -repeat FIT -declines colonoscopy @ this time, had appt w/[facility], pls reconsider risk/benefit and states he would consider scope if second FIT+ 4. HF: -continue bisoprolol 10mg PO q day -continue [facility], follow-up due around Mar 2024 5. Exposure to Hazardous Substance, [place]: -contact local Service Organization (VSO) such as [place] [facility] ([facility]) www.[email or web address].gov [facility], Main Building Room [address] Cell: ext [phone] [facility], Room 15 Wednesday [phone] For appt email: [email or web address] ([employer]) www.[employer].org [employer] ([employer]) -continue [facility] care for conditions as in problem list/assessment/plan The /caregiver voiced understanding of topics covered/discussed in today's visit. Reviewed and reconciled medication list with patient and/or caregiver: No discrepancies were found The updated medication list was given to the patient/caregiver by: Handing physical copy at the end of visit Follow up: RTC: MANNY PUAL 11 MONTHS Toxic Exposure Screening Follow-Up: Exposure Concern(s): 02/04/2024 [place] - Toxic Exposure Concern Airborne Hazards/Open Burn Pit - Toxic Exposure Concern Follow-up Question(s): 02/04/2024 Benefits/Claims Questions - Toxic Exposure Concern Health/Medical Questions - Toxic Exposure Concern Registry Questions - Toxic Exposure Concern [facility] Healthcare Enrollment Questions - Toxic Exposure Concern [place]/caregiver has health or medical concerns related to their concern of environmental exposure. Concern: my lungs are bad The following connections were provided to the /caregiver: Consult/Referral to Registry Program [place] Bartender Manager/Organization (VSO) [place] Dept. of Affairs OR HTN Assess for Elevated BP>=140/90: The patient's blood pressure is usually adequately controlled. No medication changes are indicated at this time. Comment: gave new home BP/cuff log for PACT edge beader to follow-up Diagnostic Colonoscopy: (+) FIT/FOBT identified. A diagnostic Colonoscopy is due based on information available to this reminder. Defer diagnostic reminder for 1 month. Reason for deferral: given FIT for repeat, agreeable to re-consideration colonoscopy if second FIT also + /mona/ SEBASTIAN ERNANDEZ PRIMARY CARE HYDRAULIC PRESS IN OPERATOR Signed: 02/04/2024 12:16 02/04/2024 ADDENDUM STATUS: COMPLETED PACT CLAIM AUDITOR: Pls mail out a FIT test for this . Thank you. /damaris ERNANDEZ PRIMARY CARE HYDRAULIC PRESS IN OPERATOR Signed: 02/04/2024 14:31 Receipt Acknowledged By: 02/04/2024 15:52 /damaris Minor LPN LICENSED PRACTICAL NURSE 02/04/2024 ADDENDUM STATUS: COMPLETED Mailed out fit test with instructions and label per provider's guidance. /damaris Minor LPN LICENSED PRACTICAL NURSE Signed: 02/04/2024 15:54 SEBASTIAN ERNANDEZ [facility] Feb 04, 2024 10:06 AM PRIMARY CARE NURSING NOTE: LOCAL TITLE: Pc Health Tech/long term care administrator Note STANDARD TITLE: PRIMARY CARE NURSING NOTE DATE OF NOTE: FEB 04, 2024@10:06 ENTRY DATE: FEB 04, 2024@10:06:37 AUTHOR: ANNABELLA SCHAEFFER COSIGNER: URGENCY: STATUS: COMPLETED Pc Health Tech/long term care administrator Note Has ADDENDA The patient was given a list of his current medications, instructed to review and discuss any changes or problems with their provider. Patient advised to carry a list of current medications and any allergies with them in the event of emergency situations. Yes - /Caregiver verbalized understanding of topics discussed and education provided Provider notified of elevated B/P >/= 140/90. Yes Toxic Exposure Screening: The /caregiver was asked if they believe the experienced any toxic exposure(s), such as Airborne Hazards and Open Burn Pit, [place] related exposures, [place], Radiation, contaminated water at [place] or other such exposures, while serving in the Armed Forces. /caregiver believes the was exposed to the following while serving in the Armed Forces: Airborne Hazards and Open Burn Pit: [place]/caregiver was made aware of educational resources that includes information on the Registry Program, presumptive conditions and how to file a claim. Printed information was offered and provided if desired. [place]: /caregiver was made aware of educational resources that includes information on the Registry Program, presumptive conditions and how to file a claim. Printed information was offered and provided if desired. Health/Medical Questions All patients who report a health/medical concern will receive follow-up from a clinician. For urgent or emergent concerns, they were advised to follow local facility policy. Benefits/Claims Questions [place]/caregiver was informed of local point of contact. [place] Health Care En[place]ment and Eligibility Questions [place]/caregiver was informed of local point of contact. Registry Questions /caregiver was informed of local point of contact. Contact information for local resources: Benefits/Claim Questions: Veterans Benefits Administration (VBA): [facility] Enrollment: Health Benefits: [phone] Ext. [phone] Registry Coordinator: Ext. [phone] Toxic Exposure Screening Follow-Up reminder is needed. Name of person notified: Carolina Rodriguez APRN notified Td / Tdap Immunization: The patient declines to receive the recommended dose of Td/Tdap vaccine. Immunization: TD(ADULT) UNSPECIFIED FORMULATION Refusal Reason: PATIENT DECISION Patient refuses all immunization(s) in the Td group Comment: Patient declined TDAP Date Documented: 02/04/24 10:28 Pneumococcal Conjugate Vaccine (PCV15/PCV20): Defer due to a PRECAUTION Reason: Patient had Prevnar 13 and pneumovax 23 vaccines. /mona/ ANNABELLA BECERRIL CLAIM AUDITOR Signed: 02/04/2024 10:30 02/04/2024 ADDENDUM STATUS: COMPLETED PAVE Foot Check: A complete foot check was completed at this encounter. VISUAL INSPECTION: Includes inspection for skin breaks, deformity, erythema, trauma, pallor on elevation, dependent rubor, nail deformities, extensive callus and pitting edema. Visual exam results: Abnormal Observations: Thickened toenails, Other:toenail fungus, extensive dryness and callousing. PEDAL PULSES: Includes palpation of dorsalis and posterior tibial pulses and signs/symptoms of vascular compromise like pain, pallor, parasthesia or paralysis. Present (even if diminished) Comment: bilateral pedal pulses present SENSORY CHECK: Includes 10 gram Monofilament ([place]) test of sensation. Intact (Greater than or equal to 80% of sites checked) Abnormal (Less than 80% of sites checked): Intact Comment: Patient had sensation in all 10 toes when monofilament was used, however patient reports numbness on the bottoms of feet. HIGH-RISK: HIGH RISK INFORMATION PROVIDED: 1. Advised patient that extra depth footwear with soft molded inserts and braces may be required. 2. Advised patient not to walk barefoot. 3. Explained the importance of daily foot checks. 4. Stressed the importance of daily foot hygiene, including bathing, complete drying and thorough inspection for changes. The patient verbalized understanding and was offered a detailed handout on diabetic foot care. Patient needs podiatry referral placed, providers Sebastian Ernandez APRN and Cammie Rodriguez APRN notified. /mona/ ANNABELLA BECERRIL LPN Signed: 02/04/2024 11:18 Receipt Acknowledged By: * AWAITING SIGNATURE * SEBASTIAN ERNANDEZ * AWAITING SIGNATURE * CAMMIE RODRIGUEZ ELIZABETH [facility] [place] [facility]
--- OUTSIDE RECORDS SUMMARY | 2024-03-13 07:00 | XMS_ITS | Encounter Summary ---
Author Name [facility] [place] [facility] [place] Address [address] [place] [address] Care Team Providers Care Procurement Professional Name Role Phone IRASEMA GIRON Primary Care [...] PART A Jun 04, 2009 PART A [id number] [place] PATIENT MEDICARE (WNR) MEDICARE (M) PART A Jun 04, 2009 PART A [id number] [place] PATIENT MEDICARE (WNR) MEDICARE (M) PART A Jun 04, 2009 PART A [id number] [place] PATIENT MEDICARE (WNR) MEDICARE (M) PART A Jun 04, 2009 PART A [id number] [place] PATIENT MEDICARE (WNR) MEDICARE (M) PART A Jun 04, 2009 PART A [id number] [place] PATIENT Selected Encounter This section includes the information on record at CT for the Encounter. Date/Time Encounter Type Encounter Description Reason Provider Source Mar 13, 2024 11:00 AM OFF/OP EST MAY X REQ PHY/QHP PRIMARY CARE/MEDICINE ICD-10-CM R68.89 Other general symptoms and signs CHARI SHORT IHE Encounter Template Text not used by CT Assessments - Encounter Diagnoses This section includes the primary and secondary diagnoses documented for the Encounter. Date/Time Primary/Secondary Diagnosis Diagnosis Name Provider Source Mar 13, 2024 02:36 PM PRIMARY Other general symptoms and signs CHARI SHORT Eulalia [facility] Plan of Treatment: Future Appointments (+ 6 months) and Future Tests (+/- 45 days) The Plan of Treatment section includes future care activities for the patient from all CT treatmentfacilities. This section includes future appointments and future orders which are active, pending or scheduled. Future Appointments This section includes appointments that were scheduled to occur 6 months from the date of the Encounter, up to a maximum of 20 appointments. The data comes from all CT treatment facilities. Appointment Date/Time Appointment Type Appointme nt Facility Name Mar 20, 2024 01:00 PM AMBULATORY - MEDICINE [place] [facility] Mar 20, 2024 01:01 PM [facility] Mar 28, 2024 04:00 PM [facility] [place] [facility] Apr 03, 2024 01:15 PM [facility] Apr 27, 2024 08:30 AM AMBULATORY - MEDICINE [place] [facility] Apr 27, 2024 09:15 AM [place]ATORY - NONE [place] Apr 27, 2024 10:00 AM [facility] Apr 27, 2024 11:00 AM [facility] [place] [facility] Apr 28, 2024 10:00 AM [facility] [place] [facility] May 17, 2024 01:00 PM AMBULATORY - MEDICINE [place] [facility] May 24, 2024 10:00 AM [facility] May 24, 2024 10:30 AM [facility] [place] [facility] May 24, 2024 11:00 AM [facility] Jun 08, 2024 08:01 AM [facility] Aug 29, 2024 11:00 AM AMBULATORY - MEDICINE [facility] Active, Pending, and Scheduled Orders This section includes a listing of several types of active, pending, and scheduled orders, including clinic medications orders, diagnostic test orders, procedure orders and consult orders; where the start date of the order is 45 days before the date of the Encounter or 45 days after the date of the Encounter. The data comes from all CT treatment facilities. Test Date/Time Test Type Test Details Facility Name Mar 03, 2024 12:00 AM Laboratory - Chemi stry Order AUTOMATED DIFF [id number] BLOOD SP ONCE [facility] Lab Results: +/- 30 days of the encounter This section includes the Chemistry and Hematology Lab Results on record with CT for the patient. Radiology Reports and Pathology Reports are provided separately, in subsequent sections. Lab Results This section contains the Chemistry/Hematology Results that were resulted 30 days before or 30 daysafter the date of the Encounter. Date/Time Source Result Type Result - Unit Interpretation Reference Range Specimen Type Comment Feb 24, 2024 12:00 AM [facility] N OCCULT BLOOD FIT X1 SCREEN FECES Specimen Typ e: FECES No comment entered. Ordering Provider: SEBASTIAN BEEBE Report Released Date/Time: Feb 04, 2024 11:20 AM Reporting Lab: [address] [address] Performing Lab: [address] [address] OCCULT BLOOD (FIT) #1 OF 1 Negative Nega tive Social History: Smoking Status (Most current) and Tobacco Use (All prior to encounter date) This section includes the most current, and the historical, smoking and tobacco- related health factors from the CT facility where the Encounter took place. Current Smoking Status This section includes the most current smoking, or tobacco-related health factor, from the CT facility where the Encounter took place. Date/Time Current Smoking Status Comment Facil ity Mar 18, 2023 10:00 AM VA-TOBACCO FORMER USER [facility] Tobacco Use History This section includes a history of the smoking, or tobacco-related health factors, that were collected on or before the date of the Encounter. The data comes from the CT facility where the Encounter took place. Date/Time Smoking Status/Tobacco Use Comment F acility Mar 18, 2023 10:00 AM VA-TOBACCO QUIT 5 TO < 15 YRS [facility] Apr 30, 2022 11:00 AM VA-TOBACCO FORMER USER [facility] Apr 30, 2022 11:00 AM VA-TOBACCO QUIT 15 YRS OR MORE [facility] Apr 24, 2021 09:30 AM VA-TOBACCO FORMER USER [facility] Apr 24, 2021 09:30 AM VA-TOBACCO QUIT 5 TO < 15 YRS [facility] Feb 14, 2021 10:00 AM VA-TOBACCO FORMER USER [facility] Feb 14, 2021 10:00 AM VA-TOBACCO QUIT 15 YRS OR MORE [facility] Apr 20, 2018 11:36 AM VA-TOBACCO FORMER USER [facility] Apr 20, 2018 11:36 AM VA-TOBACCO QUIT 15 YRS OR MORE [facility] Feb 09, 2017 10:00 AM V9 QUIT TOBACCO >7 YEARS AGO [facility] Feb 11, 2015 10:54 AM V9 QUIT TOBACCO >7 YEARS AGO [facility] Mar 16, 2014 08:35 AM V9 QUIT TOBACCO >1 2 MO & <7 YRS AGO [facility] Mar 16, 2014 08:35 AM V9 TOBACCO OFFERED [facility] Advance Directives: All historical and current Section Date Range: From patient's date of to the date document was created. This section includes ALL of a patient's completed or amended CT Advance and Rescinded Directives. The entries below indicate that a directive exists for the patient, but an actual copy is not included with this document. The data comes from all [facility]. Date Advance Directives Provider Source Apr 16, [...] the Encounter. The data comes from all CT treatment facilities. 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 Date/Time Encounter Note(s) Provider Source Mar 13, 2024 02:28 PM PRIMARY CARE NURSI NG NOTE: LOCAL TITLE: Pc Video Production Assistant Note STANDARD TITLE: PRIMARY CARE NURSING NOTE DATE OF NOTE: MAR 13, 2024@14:28 ENTRY DATE: MAR 13, 2024@14:28:51 AUTHOR: NIKO SHORT EXP COSIGNER: URGENCY: STATUS: COMPLETED Mr. Mosher is arriving to clinic for a walk-test to evaluate his possible need for home oxygen. has been asked to complete the overnight sleep study however is not scheduled until next month. Vitals at time of arrival: BP 159/79, HR 72, Sats 94%. Bethesda walked around clinic with o2 sensor. Half way through the walk needed to rest. Sats were stable for first few minutes, once rested started back to exam room, veterans sats dropped to 84%. is able to recover when sitting after a few minutes. Placed in wheelchair and assisted out to his truck. Yes - Bethesda/Caregiver verbalized understanding of topics discussed and education provided /mona/ CYRUS Neumann, RN Pc Barrel Cooper Signed: 03/13/2024 14:36 Receipt Acknowledged By: 03/13/2024 15:04 /mona/ IRASEMA GIRON NURSE PRACTITIONER NIKO SHORT [facility]
--- OUTSIDE RECORDS SUMMARY | 2024-03-20 09:01 | XMS_ITS | Encounter Summary ---
Author Name [facility] [place] Address [address] [place] [address] Care Team Providers Care Hand Funnel Coater Name Role Phone CAMMIE RODRIGUEZ Primary Care Provider Unavailab le Insurance Providers: [...] PART A Jun 04, 2009 PART A [id number] [place] PATIENT MEDICARE (WNR) MEDICARE (M) PART A Jun 04, 2009 PART A [id number] GAYLE RY PATIENT MEDICARE (WNR) MEDICARE (M) PART A Jun 04, 2009 PART A [id number] [place] PATIENT MEDICARE (WNR) MEDICARE (M) PART A Jun 04, 2009 PART A [id number] [place] PATIENT MEDICARE (WNR) MEDICARE (M) PART A Jun 04, 2009 PART A [id number] [place] PATIENT Selected Encounter This section includes the information on record at [place] for the Encounter. Date/Time Encounter Type Encounter Description Reason Provider Source Mar 20, 2024 01:01 PM PT EDUCATION NOC INDIVID RESPIRATORY THERAPY ICD-10-CM J44.9 Chronic obstructive pulmonary disease, unspecified CHRISTAGERSONSURINDER ALETHEA Brian Encounter Template Text not used by [place] Assessments - Encounter Diagnoses This section includes the primary and secondary diagnoses documented for the Encounter. Date/Time Primary/Secondary Diagnosis Diagnosis Name Provider Source Mar 20, 2024 02:48 PM PRIMARY Chronic obstructive pulmonary disease, unspecified [facility]INDER [facility] Plan of Treatment: Future Appointments (+ 6 months) and Future Tests (+/- 45 days) The Plan of Treatment section includes future care activities for the patient from all [place] [facility]. This section includes future appointments and future orders which are active, pending or scheduled. Future Appointments This section includes appointments that were scheduled to occur 6 months from the date of the Encounter, up to a maximum of 20 appointments. The data comes from all [place] treatment facilities. Appointment Date/Time Appointment Type Appointme nt Facility Name Mar 28, 2024 04:00 PM [facility]ORY - NONE [place] [facility] Apr 03, 2024 01:15 PM [facility] Apr 27, 2024 08:30 AM AMBULATORY - MEDICINE [facility] NGT[facility] Apr 27, 2024 09:15 AM [facility]ATORY - NONE [place] Apr 27, 2024 10:00 AM [facility] Apr 27, 2024 11:00 AM [facility]ONE [place] [facility] Apr 28, 2024 10:00 AM [place]ATORY - NONE [place] [facility] May 17, 2024 01:00 PM [facility] May 24, 2024 10:00 AM [facility] May 24, 2024 10:30 AM [facility]ONE [place] [facility] May 24, 2024 11:00 AM [facility] Jun 08, 2024 08:01 AM [facility] Aug 29, 2024 11:00 AM [facility] Active, Pending, and Scheduled Orders This section includes a listing of several types of active, pending, and scheduled orders, including clinic medications orders, diagnostic test orders, procedure orders and consult orders; where the start date of the order is 45 days before the date of the Encounter or 45 days after the date of theEncounter. The data comes from all [place] treatment facilities. Test Date/Time Test Type Test Details Facility Name Mar 03, 2024 12:00 AM Laboratory - Chemi stry Order AUTOMATED DIFF [id number] BLOOD SP ONCE [facility] Lab Results: +/- 30 days of the encounter This section includes the Chemistry and Hematology Lab Results on record with [place] for the patient. Radiology Reports and Pathology Reports are provided separately, in subsequent sections. Lab Results This section contains the Chemistry/Hematology Results that were resulted 30 days before or 30 daysafter the date of the Encounter. Date/Time Source Result Type Result - Unit Interpretation Reference Range Specimen Type Comment Feb 24, 2024 12:00 AM [facility] N OCCULT BLOOD FIT X1 SCREEN FECES Specimen Typ e: FECES No comment entered. Ordering Provider: SEBASTIAN BEEBE Report Released Date/Time: Feb 04, 2024 11:20 AM Reporting Lab: [address] [address] Performing Lab: [address] [address] OCCULT BLOOD (FIT) #1 OF 1 Negative Nega tive Social History: Smoking Status (Most current) and Tobacco Use (All prior to encounter date) This section includes the most current, and the historical, smoking and tobacco- related health factors from the [place] facility where the Encounter took place. Current Smoking Status This section includes the most current smoking, or tobacco-related health factor, from the [place] facility where the Encounter took place. Date/Time Current Smoking Status Comment Zayda ity Jan 21, 2016 04:53 PM NON-TOBACCO USE INPATIENT [facility] Tobacco Use History This section includes a history of the smoking, or tobacco-related health factors, that were collected on or before the date of the Encounter. The data comes from the [place] facility where the Encounter took place. Date/Time Smoking Status/Tobacco Use Comment F acility Jan 13, 2016 06:51 AM V9 QUIT TOBACCO >7 YEARS AGO [id number] Advance Directives: All historical and current Section Date Range: From patient's date of to the date document was created. This section includes ALL of a patient's completed or amended [place] Advance and Rescinded Directives. The entries below indicate that a directive exists for the patient, but an actual copy is not included with this document. The data comes from all [place] facilities. Date Advance Directives Provider Source Apr 16, 2010 ADVANCE DIRECTIVE ALEXEY SHEPHERD [facility] Encounter Notes: All associated encounter notes This section contains the clinical notes associated to the Encounter. Date/Time Encounter Note(s) Provider Source Mar 20, 2024 02:43 PM PULMONARY HOME HEA LTH CONSULT: LOCAL TITLE: HOME OXYGEN CONSULT RESPONSE STANDARD TITLE: PULMONARY HOME HEALTH CONSULT DATE OF NOTE: MAR 20, 2024@14:43 ENTRY DATE: MAR 20, 2024@14:43:31 AUTHOR: SURINDER GOODWIN COSIGNER: CARRIE HI URGENCY: STATUS: COMPLETED Diagnosis: COPD Estimated length of need (# of months)-(99 = lifetime): 8 wks SMOKING HISTORY: Current Smoker - No Patient provided verbal and written information related to: Yes - Hazards associated with smoking and oxygen Yes - Oxygen safety concerns and issues Yes - Contact info, [place] Home Oxygen Program and Home Oxygen Vendor (Contact numbers provided) Yes - Patient or surrogate/guardian viewed Home Oxygen Safety video. Yes - Patient or surrogate/guardian signed Home Oxygen Safety IMED consent form. RESULTS OF PULSE OXIMETRY OR ARTERIAL BLOOD GASES Room Air at Rest: 94% Room Air with Exertion: 84% Distance:NA Time:NA6 minute walk Prescribed liter flow: 2LPM Other: Physician/Provider Performing Test: Cammie Rodriguez Title: PCP PRESCRIPTION FOR HOME OXYGEN LPM Continuous: LPM During Exertion: 2 LPM @ Night: 2 LPM PRN: Level of activity: PRIMARY DELIVERY SYSTEM Compressed Gas, Concentrator ADDITIONAL ITEMS Tank Size E, M6/C Quantity per Month 15 Pulse dose conserver, Nasal Cannula, Oxysafe Valve, CPAP/BIPAP Oxygen Adapter, Cart , Shoulder bag Vendor satisfaction: Initial Set up Cleans filter weekly: Delivery Location: Home Requires recertification of prescription and follow-up appointment WITHIN 24 weeks Date of last visit: March 20, 2024 Date of next visit: June 03, 2024 Respiratory Therapist Assessment: Initial, To include pulse oximetry and vitals /mona/ SURINDER GOODWIN Respiratory Therapist Signed: 03/20/2024 14:48 /mona/ CARRIE HI Pulmonary/Critical Care Attending Cosigned: 03/20/2024 15:01 SURINDER GOODWIN-Leona [facility]
--- OUTSIDE RECORDS SUMMARY | 2024-04-03 09:15 | XMS_ITS ---
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 Date/Time Encounter Type Encounter Description Reason Provider Source Apr 03, 2024 01:15 PM OFFICE O/P EST MOD 30 MIN CARDIOLOGY ICD-10-CM I25.10 [place] heart disease of [place] coronary artery w/o ETHAN Guerra Encounter Template Text not used by [place] Assessments - Encounter Diagnoses This section includes the primary and secondary diagnoses documented for the Encounter. Date/Time Primary/Secondary Diagnosis Diagnosis Name Provider Source Apr 03, 2024 01:51 PM PRIMARY [place] heart disease of [place] coronary artery w/o ETHAN Guerra-CD [place] [facility] Apr 03, 2024 01:51 PM SECONDARY Essential (primary) hypertension ETHAN SEGUNDO-ALISSON [place] [facility] Apr 03, 2024 01:51 PM SECONDARY Paroxysmal atrial fibrillation ETHAN SEGUNDO- [place] [facility] Plan of Treatment: Future Appointments (+ 6 months) and Future Tests (+/- 45 days) The Plan of Treatment section includes future care activities for the [facility] This section includes future appointments and future orders which are active, pending or scheduled. Future Appointments This section includes appointments that were scheduled to occur 6 months from the date of the Encounter, up to a maximum of 20 appointments. The data comes from all [place] treatment facilities. Appointment Date/Time Appointment Type Appointme nt Facility Name Apr 27, 2024 08:30 AM [facility] Apr 27, 2024 09:15 AM [facility] Apr 27, 2024 10:00 AM AMBULATORY - MEDICINE [facility] Apr 27, 2024 11:00 AM [facility] Apr 28, 2024 10:00 AM [facility] - NONE [facility] May 17, 2024 01:00 PM AMBULATORY - MEDICINE [facility] May 24, 2024 10:00 AM AMBULATORY - MEDICINE [facility] May 24, 2024 10:30 AM [facility] - NONE [facility] May 24, 2024 11:00 AM AMBULATORY - MEDICINE [facility] Jun 08, 2024 08:01 AM AMBULATORY - MEDICINE [facility] Aug 29, 2024 11:00 AM AMBULATORY - MEDICINE [facility] Sep 28, 2024 09:00 AM AMBULATORY - MEDICINE [facility] Active, Pending, and Scheduled Orders This section includes a listing of several types of active, pending, and scheduled orders, including clinic medications orders, diagnostic test orders, procedure orders and consult orders; where the start date of the order is 45 days before the date of the Encounter or 45 days after the date of theEncounter. The data comes from all [place] treatment facilities. Test Date/Time Test Type Test Details Facility Name Mar 03, 2024 12:00 AM Laboratory - Chemistry Order AUTOMATED DIFF [id number] BLOOD SP ONCE [facility] May 06, 2024 12:00 AM Laboratory - Chemistry Order LIPID PROFILE [id number] SP ONCE [facility] May 06, 2024 12:00 AM Laboratory - Chemistry Order GLYCOHEMOGLOBIN [id number] BLOOD SP ONCE [facility] May 06, 2024 12:00 AM Laboratory - Chemistry Order CBC/PLT [id number] BLOOD SP ONCE [facility] May 06, 2024 12:00 AM Laboratory - Chemistry Order PANEL 5 [id number] SP ONCE [facility] Lab Results: +/- 30 days of the encounter This section includes the Chemistry and Hematology Lab Results on record with [facility] for the [facility]. Radiology Reports and Pathology Reports are provided separately, in subsequent sections. Lab Results This section contains the Chemistry/Hematology Results that were resulted 30 days before or 30 daysafter the date of the Encounter. Date/Time Source Result Type Result - Unit Interpretation Reference Range Specimen Type Comment Apr 27, 2024 11:12 AM [facility] ANTI-CCP (SRL) SERUM Specimen Type: SERUM No comment entered. Ordering Provider: JAYDON ALCALA Report Released Date/Time: Apr 27, 2024 10:20 AM Reporting Lab: [facility] [address] [facility] [id number] Performing Lab: [address] [address] ANTI-CCP (SRL) <0.5 0.5-2.9 Apr 27, 2024 11:12 AM [facility] FLORI SCREEN SERUM Specimen Type: SERUM No comment entered. Ordering Provider: JAYDON ALCALA Report Released Date/Time: Apr 27, 2024 10:20 AM Reporting Lab: [address] [address] Performing Lab: [place] [phone] FLORI SCREEN Negative Negative Apr 27, 2024 11:12 AM [facility] RHEUMATOID FACTOR SERUM Specimen T ype: SERUM No comment entered. Ordering Provider: JAYDON ALCALA Report Released Date/Time: Apr 27, 2024 10:20 AM Reporting Lab: [place] [phone] Performing Lab: [place] [phone] RHEUMATOID FACTOR <8 NEGATIVE [IU]/mL <8 NEGATIVE Apr 27, 2024 11:12 AM [facility] ANTI-NUCLEAR Ab SERUM Specimen Typ e: SERUM No comment entered. Ordering Provider: JAYDON ALCALA Report Released Date/Time: Apr 27, 2024 10:20 AM Reporting Lab: [place] [phone] Performing Lab: [place] [phone] ANTI-NUCLEAR Ab <1:80 <1:80 Apr 27, 2024 11:12 AM [facility] eGFR + CREATININE PLASMA Specimen Type: PLASM A Comment: Estimated Glomerular Filtration Rate (eGFR) calculated using the 2020 Chronic Kidney Disease-Epidemiology (CKD-EPI) Collaboration creatinine equation; units of measure are mL/min/1.73 m2. Results are only valid for adults (>=18 years) whose serum creatinine is in a steady state. eGFR calculations are not valid for patients with acute kidney injury and for patients on dialysis. Creatinine-based estimates of kidney function may also be inaccurate in patients with reduced creatinine generation due to decreased muscle mass (e.g., malnutrition, severe hypoalbuminemia, sarcopenia, chronic neuromuscular disease, amputations, severe heart failure or liver disease) and in patients with increased creatinine generation due to increased muscle mass (e.g., muscle builders, anabolic steroids) or increased dietary intake. As drug clearance is proportional to total GFR and not GFR indexed to body surface area (BSA), in individuals with a BSA substantially different than 1.73 m2, drug dosing should be based on the reported eGFR value de-indexed from BSA by multiplying by the individual's BSA and dividing by 1.73. CKD is diagnosed based on abnormalities of kidney structure or function, present for >3 months, with implications for health and disease. CKD is classified and staged based on cause, eGFR and albuminuria (quantified as urine albumin to creatinine ratio). An eGFR >60 mL/min/1.73 m2 in the absence of increased urine albumin excretion or structural abnormalities does not represent CKD. eGFR CKD Interpretation (mL/min/1.73 m2) stage >=90 G1 Normal 60-89 G2 Mild decrease 45-59 G3A Mild to moderate decrease 30-44 G3B Moderate to severe decrease 15-29 G4 Severe decrease <15 G5 Kidney failure Ordering Provider: GIFTY GREGORY Report Released Date/Time: Mar 28, 2024 06:29 PM Reporting Lab: [address] [phone] Performing Lab: [place] [phone] CREATININE 0.56 mg/dL L 0.72-1.25 eGFR (CKD-EPI) >90 Apr 27, 2024 11:12 AM [facility] CBC/PLT BLOOD Specimen Type: BLOOD No comment entered. Ordering Provider: GIFTY GREGORY Report Released Date/Time: Mar 28, 2024 06:29 PM Reporting Lab: [address] [phone] Performing Lab: [address] [phone] WBC 5.0 10*3/uL 5.0-10.0 RBC 4.37 10*6/uL L 4.6-6.2 HGB 12.7 g/dL L 14.0-18.0 HCT 39.5 L 42.0-52.0 MCV 90.4 fL 80.0-94.0 MCH 29.1 pg 27.0-31.0 MCHC 32.2 g/dL 32.0-36.0 PLT 219 10*3/uL 150-450 MPV 9.0 fL 9.0-13.1 RDW 12.8 11.0-16.0 NRBC 0.0 0.0-0.0 Apr 27, 2024 11:12 AM [facility] CRP (for acute inflammation) PLASMA Specimen T ype: PLASMA Comment: Estimated Glomerular Filtration Rate (eGFR) calculated using the 2020 Chronic Kidney Disease-Epidemiology (CKD-EPI) Collaboration creatinine equation; units of measure are mL/min/1.73 m2. Results are only valid for adults (>=18 years) whose serum creatinine is in a steady state. eGFR calculations are not valid for patients with acute kidney injury and for patients on dialysis. Creatinine-based estimates of kidney function may also be inaccurate in patients with reduced creatinine generation due to decreased muscle mass (e.g., malnutrition, severe hypoalbuminemia, sarcopenia, chronic neuromuscular disease, amputations, severe heart failure or liver disease) and in patients with increased creatinine generation due to increased muscle mass (e.g., muscle builders, anabolic steroids) or increased dietary intake. As drug clearance is proportional to total GFR and not GFR indexed to body surface area (BSA), in individuals with a BSA substantially different than 1.73 m2, drug dosing should be based on the reported eGFR value de-indexed from BSA by multiplying by the individual's BSA and dividing by 1.73. CKD is diagnosed based on abnormalities of kidney structure or function, present for >3 months, with implications for health and disease. CKD is classified and staged based on cause, eGFR and albuminuria (quantified as urine albumin to creatinine ratio). An eGFR >60 mL/min/1.73 m2 in the absence of increased urine albumin excretion or structural abnormalities does not represent CKD. eGFR CKD Interpretation (mL/min/1.73 m2) stage >=90 G1 Normal 60-89 G2 Mild decrease 45-59 G3A Mild to moderate decrease 30-44 G3B Moderate to severe decrease 15-29 G4 Severe decrease <15 G5 Kidney failure Ordering Provider: JAYDON ALCALA Report Released Date/Time: Apr 27, 2024 10:20 AM Reporting Lab: [address] [phone] Performing Lab: [place] [phone] CRP (for acute inflammation) 21.6 mg/L H 0 .0-5.0 Apr 27, 2024 11:12 AM [facility] AUTOMATED DIFF BLOOD Specimen Type : BLOOD No comment entered. Ordering Provider: JAYDON ALCALA Report Released Date/Time: Apr 27, 2024 10:20 AM Reporting Lab: [address] [address] Performing Lab: [address] [phone] A-LYMPH % 22.2 L 24.0-44.0 A-MONO % 9.4 H 0.1-6.0 A-GRAN % 67.6 42.0-75.0 A-LYMPH # 1.11 10*3/uL L 1.20-3.40 A-MONO # 0.47 10*3/uL 0.00-0.60 A-GRAN # 3.37 10*3/uL 1.40-6.50 A-BASO % 0.6 0.0-3.0 A-BASO # 0.03 10*3/uL 0.00-0.20 A-EOS % 0.0 0.0-10.0 A-EOS # 0.00 10*3/uL 0.00-0.70 A-IG % 0.2 0.0-0.5 A-IG # 0.01 10*3/uL 0.00-0.06 Apr 27, 2024 11:12 AM [facility] PANEL 5 PLASMA Specimen Type: PLASM A Comment: Estimated Glomerular Filtration Rate (eGFR) calculated using the 2020 Chronic Kidney Disease-Epidemiology (CKD-EPI) Collaboration creatinine equation; units of measure are mL/min/1.73 m2. Results are only valid for adults (>=18 years) whose serum creatinine is in a steady state. eGFR calculations are not valid for patients with acute kidney injury and for patients on dialysis. Creatinine-based estimates of kidney function may also be inaccurate in patients with reduced creatinine generation due to decreased muscle mass (e.g., malnutrition, severe hypoalbuminemia, sarcopenia, chronic neuromuscular disease, amputations, severe heart failure or liver disease) and in patients with increased creatinine generation due to increased muscle mass (e.g., muscle builders, anabolic steroids) or increased dietary intake. As drug clearance is proportional to total GFR and not GFR indexed to body surface area (BSA), in individuals with a BSA substantially different than 1.73 m2, drug dosing should be based on the reported eGFR value de-indexed from BSA by multiplying by the individual's BSA and dividing by 1.73. CKD is diagnosed based on abnormalities of kidney structure or function, present for >3 months, with implications for health and disease. CKD is classified and staged based on cause, eGFR and albuminuria (quantified as urine albumin to creatinine ratio). An eGFR >60 mL/min/1.73 m2 in the absence of increased urine albumin excretion or structural abnormalities does not represent CKD. eGFR CKD Interpretation (mL/min/1.73 m2) stage >=90 G1 Normal 60-89 G2 Mild decrease 45-59 G3A Mild to moderate decrease 30-44 G3B Moderate to severe decrease 15-29 G4 Severe decrease <15 G5 Kidney failure Ordering Provider: JAYDON ALCALA Report Released Date/Time: Apr 27, 2024 10:20 AM Reporting Lab: [address] [phone] Performing Lab: [address] [phone] CREATININE 0.56 mg/dL L 0.72-1.25 UREA NITROGEN 7 mg/dL L 9-25 GLUCOSE 96 mg/dL 74-100 SODIUM 125 mmol/L L 136-145 POTASSIUM 4.8 mmol/L 3.5-5.1 CHLORIDE 85 mmol/L L 98-107 CO2 37 mmol/L H 22-29 CALCIUM 9.1 mg/dL 8.4-10.2 TOTAL PROTEIN 6.9 g/dL 6.4-8.3 ALBUMIN 3.9 g/dL 3.5-5.2 TOTAL BILIRUBIN 0.8 mg/dL 0.2-1.2 AST 24 U/L 5-34 ALT 13 U/L 0-55 ANION GAP 3 meq/L 3-19 ALK PHOS 82 U/L 40-150 eGFR (CKD-EPI) >90 Social History: Smoking Status (Most current) and Tobacco Use (All prior to encounter date) This section includes the most current, and the historical, smoking and tobacco- related health factors from the AL facility where the Encounter took place. Current Smoking Status This section includes the most current smoking, or tobacco-related health factor, from the AL facility where the Encounter took place. Date/Time Current Smoking Status Comment Facil ity Apr 03, 2024 01:15 PM VA-TOBACCO NEVER USED [facility] Tobacco Use History This section includes a history of the smoking, or tobacco-related health factors, that were collected on or before the date of the Encounter. The data comes from the [place] facility where the Encounter took place. Date/Time Smoking Status/Tobacco Use Comment F acility Jan 21, 2016 04:53 PM NON-TOBACCO USE INPATIENT [facility] Jan 13, 2016 06:51 AM V9 QUIT TOBACCO >7 YEARS AGO [facility] Advance Directives: All historical and current Section Date Range: From patient's date of to the date document was created. This section includes ALL of a patient's completed or amended [place] Advance and Rescinded Directives. The entries below indicate that a directive exists for the patient, but an actual copy is not included with this document. The data comes from all [place] facilities. Date Advance Directives Provider Source Apr [...] the Encounter. The data comes from all [place] treatment facilities. Date/Time Radiology Report Provider Source Apr 27, 2024 10:[address] CHEST HIGH RESO LUTION CT: MARIZA JAY [id number] -[phone] M Exm Date: APR 27, 2024@10:28 Req Phys: JAYDON ALCALA Loc: [facility] F[facility] (Req'g Loc) Img Loc: CT SCAN Service: Unknown [place] [id number] (Case [id number] COMPLETE)CT CHEST HIGH RESOLUTION CT (CT Detailed) CPT:58355 Reason for Study: ILD Clinical History: Suspected Interstitial Lung Disease Report Status: Verified Date Reported: MAY 02, 2024 Date Verified: MAY 02, 2024 Insights Strategist E-Sig: Report: CT chest high resolution Inspiratory and expiratory phase limited CT of the chest performed in the supine position. Inspiratory phase imaging also performed in the prone position. There is extensive interstitial lung disease with subpleural septal thickening, micronodularity, scarring and subpleural cystic change. There are numerous nodular densities scattered about both lung zones on prior study. Not all of these are visible is only interval CT images are obtained. Because of the numerous nodules however suggest a routine CT of the chest perhaps using the lung cancer screening protocol. Impression: Recommend low-dose CT of the chest to document the numerous pulmonary nodules. Primary Diagnostic Code: SIGNIFICANT ABNORMALITY, ATTN NEEDED Primary Interpreting Staff: DHARA WYMAN, Staff Radiologist Verified by bone plant supervisor for DHARA WYMAN /DHARA SHOOK YEIMY-D [facility] Encounter Notes: All associated encounter notes This section contains the clinical notes associated to the Encounter. Date/Time Encounter Note(s) Provider Source November 24, 2024 02:58 PM ADDENDUM: LOCAL TITLE: Addendum STANDARD TITLE: ADDENDUM DATE OF NOTE: NOVEMBER 24, 2024@14:58:41 ENTRY DATE: NOVEMBER 24, 2024@14:58:41 AUTHOR: RASHIDA KAMARA EXP COSIGNER: URGENCY: STATUS: COMPLETED Please schedule OB on 12/18/[address] Segundo will need an ECHO same day as revisit. Please coordinate with Ed and ECHO. /mona/ RASHIDA KAMARA RN Signed: 11/24/2024 15:00 Receipt Acknowledged By: 11/24/2024 15:46 /es/ TREY Krys JASON medical radiation tech 11/28/2024 09:17 /es/ Kimberley Russo MSA/NA --- Original Document --- 04/03/24 CARDIOLOGY CLINIC ATTENDING NOTE: (X)Nursing Intake Note Reviewed Pain: 0 (04/03/2024 13:33) 74 year old male with CAD, afib presents for follow up. Patient reports having a chest pain in the left side, and can occur at rest and not associated with exertion. The pain only lasts for a few seconds, and especially with deep breaths. Denies worsening orthopnea (adjustable bed, unchanged), LE edema, palpitations, syncope. Past Medical History: 1. Coronary artery disease - 09/2004: VFib arrest: RCA PCI ([place]) - 2007: RCA PCI in [place] (after a stress test) - 02/2021: RCA STEMI: s/p 3 PCI ([facility]) - 02/2021: EF 45% - 04/2022: EF: 30-45% - 06/2022: EF: 45-50% - 10/2022: EF: 50-55% - 06/2023: Nuclear stress test: Inf infarct, no ischemia. EF 52% 2. Paroxysmal atrial fibrillation - 04/2022 s/p DCCV - CHADSVASC (Age, HTN, CAD): 3 3. Hypertension 4. Mixed dyslipidemia 5. COPD (09/2022 PFT: severe obstructive disease, 3L O2 NC) 6. GERD 7. Peripheral artery disease - s/p PCI to RLE 8. Anxiety/Depression/PTSD 9. COVID 03/2022 Medications: 1. Apixaban 5mg po bid 2. Bisoprolol 10mg po daily 3. Atorvastatin 80mg po daily 4. NTG 0.4mg sl prn 5. Tiotropium 2.5mcg 2 inh po daily 6. Fluticasone/Salmeterol 500/50 1 inh bid 7. Albuterol/Ipratropium neb qid 8. Albuterol inh 2 puffs q4hprn 9. Ergocalciferol 50,000units po q7days Allergies/Adverse Reactions: LISINOPRIL Family History: no early CAD Social history: quit smoking in 2007 Physical Exam: BP: 149/71 (04/03/2024 13:33) HR: 86 (04/03/2024 13:33) Wt: 130.0 lb [58.97 kg] (04/03/2024 13:33) Ht: 69.0 in [175.3 cm] (04/03/2024 13:33) BMI: BODY MASS INDEX - 19.2 Gen: AAO, NAD Head: NCAT Eyes: EOMI Chest: Clear bilaterally Cardiac: normal rate, reg rhythm, no m/r/g Abd: soft, NT, NABS Ext: no LE edema/cyanosis/clubbing Neuro: moves all four, ambulates well Psych: normal affect, normal speech A/P: 1. Atherosclerotic Heart Disease of [place] Coronary Artery without Angina Pectoris - stable. His chest pain seems non-cardiac. Will continue secondary prevention. 2. Essential (Primary) Hypertension - BP has been elevated. Will start amlodipine 5mg po daily. He was on it previously and appeared to have tolerated. The hyponatremia did not occur until more than a year after he had been on the amlodipine. Will recheck Panel 1 in 1-2 weeks after starting. 3. Paroxysmal atrial fibrillation - patient is stable. He has elevated stroke risk, and is on apixaban. Will continue. Follow up in 1 year. I spent 25 minutes, reviewing history, performing an exam and evaluation, entering clinical information in EHR, interpreting results, counseling patient, reviewing imaging studies/labs, ordering meds/test/procedures. Does not include time by clerical staff. /mona/ Ethan Segundo MD Cardiology Attending Signed: 04/03/2024 14:02 04/03/2024 ADDENDUM STATUS: COMPLETED Correction on physical exam: There is poor air movements on both sides for lung exam. He was able to walk very slowly with assistance and O2 on. /damaris Segundo MD Cardiology Attending Signed: 04/03/2024 14:25 04/07/2024 ADDENDUM STATUS: COMPLETED exited clinic per MD. All medications and treatment plan were discussed with prior to exiting clinic by MD. to RTC 1 year with [facility] A-7 via F2F, per provider order/instruction above. If this provider is not available or requires overbook please alert Helpdesk Administrator. Appointment letter to be mailed. a) to be scheduled for BMP in two weeks (I reminded today via phone) b) Results of testing ordered have been alerted automatically to provider to follow up and notify of results. /mona/ STEPHAN GEE case aide Signed: 04/07/2024 14:49 11/22/2024 ADDENDUM STATUS: COMPLETED Please schedule [place] with any gen cards bindu. recently hospitalized, now has life vest. Notes in [place] dated 09/16/24. Thank you. /mona/ Brenda BRIDGES, RN RC NURSE Signed: 11/22/2024 15:15 Receipt Acknowledged By: 11/22/2024 15:47 /mona/ RASHIDA KAMARA RN 11/22/2024 ADDENDUM STATUS: COMPLETED Kimberley please schedule in [facility] A-7 Dr. Segundo first available. May OB if needed per Rashida. Thank you. /mona/ RASHIDA KAMARA RN Signed: 11/22/2024 15:30 Receipt Acknowledged By: 11/23/2024 11:27 /mona/ Kimberley BROOKS 11/23/2024 ADDENDUM STATUS: COMPLETED Scheduled with patient over phone letter mailed. [facility] A-7 01/15/2025@13:00 Future patient choose a later date to get a 1300 appointment for travel time /mona/ Kimberley Russo MSA/ASHLEY Signed: 11/23/2024 11:29 11/23/2024 ADDENDUM STATUS: COMPLETED Dr. Segundo was recently with Resp failure/HF records in [place]. They sent him home with a Life vest. He is scheduled to see you January 15. Please review and advise if we should see in your clinic sooner may have to be OB? Or EP? Thank you. /mona/ RASHIDA KAMARA RN Signed: 11/23/2024 13:44 Receipt Acknowledged By: 11/24/2024 11:51 /es/ Ethan Segundo MD Cardiology Attending 11/24/2024 ADDENDUM STATUS: COMPLETED Patient was admitted to the hospital at the end of Aug. That discharge summary was not very helpful in [facility]. Can we get a more detailed set of notes? Sounds like from the September overnight stay, he had a cath during the Aug admission, for which he was treated with pneumonia as well. Please coordinate echo (limited function) on same day as clinic follow up. Can overbook on 12/18. Thanks. /mona/ Ethan Segundo MD Cardiology Attending Signed: 11/24/2024 11:54 Receipt Acknowledged By: 11/24/2024 14:58 /mona/ RASHIDA MARCELO RN-[place] [facility] November 24, 2024 11:53 AM ADDENDUM: LOCAL TITLE: Addendum STANDARD TITLE: ADDENDUM DATE OF NOTE: NOVEMBER 24, 2024@11:53:22 ENTRY DATE: NOVEMBER 24, 2024@11:53:23 AUTHOR: ETHAN SEGUNDO EXP COSIGNER: URGENCY: STATUS: COMPLETED Patient was admitted to the hospital at the end of Aug. That discharge summary was not very helpful in [facility]. Can we get a more detailed set of notes? Sounds like from the September overnight stay, he had a cath during the Aug admission, for which he was treated with pneumonia as well. Please coordinate echo (limited function) on same day as clinic follow up. Can overbook on 12/18. Thanks. /mona/ Ethan Segundo MD Cardiology Attending Signed: 11/24/2024 11:54 Receipt Acknowledged By: 11/24/2024 14:58 /mona/ RASHIDA KAMARA RN --- Original Document --- 04/03/24 CARDIOLOGY CLINIC ATTENDING NOTE: (X)Nursing Intake Note Reviewed Pain: 0 (04/03/2024 13:33) 74 year old male with CAD, afib presents for follow up. Patient reports having a chest pain in the left side, and can occur at rest and not associated with exertion. The pain only lasts for a few seconds, and especially with deep breaths. Denies worsening orthopnea (adjustable bed, unchanged), LE edema, palpitations, syncope. Past Medical History: 1. Coronary artery disease - 09/2004: VFib arrest: RCA PCI ([place]) - 2007: RCA PCI in [place] (after a stress test) - 02/2021: RCA STEMI: s/p 3 PCI ([facility]) - 02/2021: EF 45% - 04/2022: EF: 30-45% - 06/2022: EF: 45-50% - 10/2022: EF: 50-55% - 06/2023: Nuclear stress test: Inf infarct, no ischemia. EF 52% 2. Paroxysmal atrial fibrillation - 04/2022 s/p DCCV - CHADSVASC (Age, HTN, CAD): 3 3. Hypertension 4. Mixed dyslipidemia 5. COPD (09/2022 PFT: severe obstructive disease, 3L O2 NC) 6. GERD 7. Peripheral artery disease - s/p PCI to RLE 8. Anxiety/Depression/PTSD 9. COVID 03/2022 Medications: 1. Apixaban 5mg po bid 2. Bisoprolol 10mg po daily 3. Atorvastatin 80mg po daily 4. NTG 0.4mg sl prn 5. Tiotropium 2.5mcg 2 inh po daily 6. Fluticasone/Salmeterol 500/50 1 inh bid 7. Albuterol/Ipratropium neb qid 8. Albuterol inh 2 puffs q4hprn 9. Ergocalciferol 50,000units po q7days Allergies/Adverse Reactions: LISINOPRIL Family History: no early CAD Social history: quit smoking in 2007 Physical Exam: BP: 149/71 (04/03/2024 13:33) HR: 86 (04/03/2024 13:33) Wt: 130.0 lb [58.97 kg] (04/03/2024 13:33) Ht: 69.0 in [175.3 cm] (04/03/2024 13:33) BMI: BODY MASS INDEX - 19.2 Gen: AAO, NAD Head: NCAT Eyes: EOMI Chest: Clear bilaterally Cardiac: normal rate, reg rhythm, no m/r/g Abd: soft, NT, NABS Ext: no LE edema/cyanosis/clubbing Neuro: moves all four, ambulates well Psych: normal affect, normal speech A/P: 1. Atherosclerotic Heart Disease of [place] Coronary Artery without Angina Pectoris - stable. His chest pain seems non-cardiac. Will continue secondary prevention. 2. Essential (Primary) Hypertension - BP has been elevated. Will start amlodipine 5mg po daily. He was on it previously and appeared to have tolerated. The hyponatremia did not occur until more than a year after he had been on the amlodipine. Will recheck Panel 1 in 1-2 weeks after starting. 3. Paroxysmal atrial fibrillation - patient is stable. He has elevated stroke risk, and is on apixaban. Will continue. Follow up in 1 year. I spent 25 minutes, reviewing history, performing an exam and evaluation, entering clinical information in EHR, interpreting results, counseling patient, reviewing imaging studies/labs, ordering meds/test/procedures. Does not include time by clerical staff. /mona/ Ethan Segundo MD Cardiology Attending Signed: 04/03/2024 14:02 04/03/2024 ADDENDUM STATUS: COMPLETED Correction on physical exam: There is poor air movements on both sides for lung exam. He was able to walk very slowly with assistance and O2 on. /mona/ Ethan Segundo MD Cardiology Attending Signed: 04/03/2024 14:25 04/07/2024 ADDENDUM STATUS: COMPLETED exited clinic per MD. All medications and treatment plan were discussed with prior to exiting clinic by . to RTC 1 year with [facility] A-7 via F2F, per provider order/instruction above. If this provider is not available or requires overbook please alert Helpdesk Administrator. Appointment letter to be mailed. a) [place] to be scheduled for BMP in two weeks (I reminded today via phone) b) Results of testing ordered have been alerted automatically to provider to follow up and notify of results. /mona/ STEPHAN GEE case aide Signed: 04/07/2024 14:49 11/22/2024 ADDENDUM STATUS: COMPLETED Please schedule with any gen cards bindu. [place] recently hospitalized, now has life vest. Notes in [place] dated 09/16/24. Thank you. /mona/ Brenda BRIDGES, RN RC NURSE Signed: 11/22/2024 15:15 Receipt Acknowledged By: 11/22/2024 15:47 /mona/ RASHIDA KAMARA RN 11/22/2024 ADDENDUM STATUS: COMPLETED Kimberley please schedule in [facility] A-7 Dr. Segundo first available. May OB if needed per Rashida. Thank you. /mona/ RASHIDA KAMARA RN Signed: 11/22/2024 15:30 Receipt Acknowledged By: 11/23/2024 11:27 /mona/ Kimberley Russo MSA/ASHLEY 11/23/2024 ADDENDUM STATUS: COMPLETED Scheduled with patient over phone letter mailed. [facility] A-7 01/15/2025@13:00 Future patient choose a later date to get a 1300 appointment for travel time /mona/ Kimberley Russo MSA/NA Signed: 11/23/2024 11:29 11/23/2024 ADDENDUM STATUS: COMPLETED Dr. Jesus Manuel ward was recently with Resp failure/HF records in [place]. They sent him home with a Life vest. He is scheduled to see you January 15. Please review and advise if we should see in your clinic sooner may have to be OB? Or EP? Thank you. /mona/ RASHIDA KAMARA RN Signed: 11/23/2024 13:44 Receipt Acknowledged By: 11/24/2024 11:51 /mona/ Ethan Segundo MD Cardiology Attending 11/24/2024 ADDENDUM STATUS: UNSIGNED You may not VIEW this UNSIGNED Addendum. ETHAN SEGUNDO-D [facility] November 23, 2024 01:39 PM ADDENDUM: LOCAL TITLE: Addendum STANDARD TITLE: ADDENDUM DATE OF NOTE: NOVEMBER 23, 2024@13:39:53 ENTRY DATE: NOVEMBER 23, 2024@13:39:54 AUTHOR: RASHIDA KAMARA COSIGNER: URGENCY: STATUS: COMPLETED Dr. Jesus Manuel ward was recently with Resp failure/HF records in [place]. They sent him home with a Life vest. He is scheduled to see you January 15. Please review and advise if we should see in your clinic sooner may have to be OB? Or EP? Thank you. /mona/ RASHIDA KAMARA RN Signed: 11/23/2024 13:44 Receipt Acknowledged By: 11/24/2024 11:51 /es/ Ethan Segundo MD Cardiology Attending --- Original Document --- 04/03/24 CARDIOLOGY CLINIC ATTENDING NOTE: (X)Nursing Intake Note Reviewed Pain: 0 (04/03/2024 13:33) 74 year old male with CAD, afib presents for follow up. Patient reports having a chest pain in the left side, and can occur at rest and not associated with exertion. The pain only lasts for a few seconds, and especially with deep breaths. Denies worsening orthopnea (adjustable bed, unchanged), LE edema, palpitations, syncope. Past Medical History: 1. Coronary artery disease - 09/2004: VFib arrest: RCA PCI ([place]) - 2007: RCA PCI in [place] (after a stress test) - 02/2021: RCA STEMI: s/p 3 PCI ([facility]) - 02/2021: EF 45% - 04/2022: EF: 30-45% - 06/2022: EF: 45-50% - 10/2022: EF: 50-55% - 06/2023: Nuclear stress test: Inf infarct, no ischemia. EF 52% 2. Paroxysmal atrial fibrillation - 04/2022 s/p DCCV - CHADSVASC (Age, HTN, CAD): 3 3. Hypertension 4. Mixed dyslipidemia 5. COPD (09/2022 PFT: severe obstructive disease, 3L O2 [place]) 6. GERD 7. Peripheral artery disease - s/p PCI to RLE 8. Anxiety/Depression/PTSD 9. COVID 03/2022 Medications: 1. Apixaban 5mg po bid 2. Bisoprolol 10mg po daily 3. Atorvastatin 80mg po daily 4. NTG 0.4mg sl prn 5. Tiotropium 2.5mcg 2 inh po daily 6. Fluticasone/Salmeterol 500/50 1 inh bid 7. Albuterol/Ipratropium neb qid 8. Albuterol inh 2 puffs q4hprn 9. Ergocalciferol 50,000units po q7days Allergies/Adverse Reactions: LISINOPRIL Family History: no early CAD Social history: quit smoking in 2007 Physical Exam: BP: 149/71 (04/03/2024 13:33) HR: 86 (04/03/2024 13:33) Wt: 130.0 lb [58.97 kg] (04/03/2024 13:33) Ht: 69.0 in [175.3 cm] (04/03/2024 13:33) BMI: BODY MASS INDEX - 19.2 Gen: AAO, NAD Head: NCAT Eyes: EOMI Chest: Clear bilaterally Cardiac: normal rate, reg rhythm, no m/r/g Abd: soft, NT, NABS Ext: no LE edema/cyanosis/clubbing Neuro: moves all four, ambulates well Psych: normal affect, normal speech A/P: 1. Atherosclerotic Heart Disease of [place] Coronary Artery without Angina Pectoris - stable. His chest pain seems non-cardiac. Will continue secondary prevention. 2. Essential (Primary) Hypertension - BP has been elevated. Will start amlodipine 5mg po daily. He was on it previously and appeared to have tolerated. The hyponatremia did not occur until more than a year after he had been on the amlodipine. Will recheck Panel 1 in 1-2 weeks after starting. 3. Paroxysmal atrial fibrillation - patient is stable. He has elevated stroke risk, and is on apixaban. Will continue. Follow up in 1 year. I spent 25 minutes, reviewing history, performing an exam and evaluation, entering clinical information in EHR, interpreting results, counseling patient, reviewing imaging studies/labs, ordering meds/test/procedures. Does not include time by clerical staff. /mona/ Ethan Segundo MD Cardiology Attending Signed: 04/03/2024 14:02 04/03/2024 ADDENDUM STATUS: COMPLETED Correction on physical exam: There is poor air movements on both sides for lung exam. He was able to walk very slowly with assistance and O2 on. /mona/ Ethan Segundo MD Cardiology Attending Signed: 04/03/2024 14:25 04/07/2024 ADDENDUM STATUS: COMPLETED [place] exited clinic per MD. All medications and treatment plan were discussed with prior to exiting clinic by MD. to RTC 1 year with [facility] A-7 via F2F, per provider order/instruction above. If this provider is not available or requires overbook please alert Helpdesk Administrator. Appointment letter to be mailed. a) [place] to be scheduled for BMP in two weeks (I reminded today via phone) b) Results of testing ordered have been alerted automatically to provider to follow up and notify of results. /es/ STEPHAN GEE case aide Signed: 04/07/2024 14:49 11/22/2024 ADDENDUM STATUS: COMPLETED Please schedule [place] with any gen cards bindu. recently hospitalized, now has life vest. Notes in [place] dated 09/16/24. Thank you. /es/ Brenda BRIDGES, RN RC NURSE Signed: 11/22/2024 15:15 Receipt Acknowledged By: 11/22/2024 15:47 /es/ RASHIDA KAMARA RN 11/22/2024 ADDENDUM STATUS: COMPLETED Kimberley please schedule in [facility] A-7 Dr. Segundo first available. May OB if needed per Rashida. Thank you. /mona/ RASHIDA KAMARA RN Signed: 11/22/2024 15:30 Receipt Acknowledged By: 11/23/2024 11:27 /mona/ Kimberley Russo MSA/ASHLEY 11/23/2024 ADDENDUM STATUS: COMPLETED Scheduled with patient over phone letter mailed. [facility] A-7 01/15/2025@13:00 Future patient choose a later date to get a 1300 appointment for travel time /mona/ Kimberley Russo MSA/NA Signed: 11/23/2024 11:29 RASHIDA KAMARA-CDD [facility] November 22, 2024 03:27 PM ADDENDUM: LOCAL TITLE: Addendum STANDARD TITLE: ADDENDUM DATE OF NOTE: NOVEMBER 22, 2024@15:27:06 ENTRY DATE: NOVEMBER 22, 2024@15:27:07 AUTHOR: RASHIDA KAMARA EXP COSIGNER: URGENCY: STATUS: COMPLETED Kimberley please schedule in [facility] A-7 Dr. Segundo first available. May OB if needed per Rashida. Thank you. /mona/ RASHIDA KAMARA RN Signed: 11/22/2024 15:30 Receipt Acknowledged By: 11/23/2024 11:27 /es/ Kimberley Russo MSA/NA --- Original Document --- 04/03/24 CARDIOLOGY CLINIC ATTENDING NOTE: (X)Nursing Intake Note Reviewed Pain: 0 (04/03/2024 13:33) 74 year old male with CAD, afib presents for follow up. Patient reports having a chest pain in the left side, and can occur at rest and not associated with exertion. The pain only lasts for a few seconds, and especially with deep breaths. Denies worsening orthopnea (adjustable bed, unchanged), LE edema, palpitations, syncope. Past Medical History: 1. Coronary artery disease - 09/2004: VFib arrest: RCA PCI ([place]) - 2007: RCA PCI in [place] (after a stress test) - 02/2021: RCA STEMI: s/p 3 PCI ([facility]) - 02/2021: EF 45% - 04/2022: EF: 30-45% - 06/2022: EF: 45-50% - 10/2022: EF: 50-55% - 06/2023: Nuclear stress test: Inf infarct, no ischemia. EF 52% 2. Paroxysmal atrial fibrillation - 04/2022 s/p DCCV - CHADSVASC (Age, HTN, CAD): 3 3. Hypertension 4. Mixed dyslipidemia 5. COPD (09/2022 PFT: severe obstructive disease, 3L O2 NC) 6. GERD 7. Peripheral artery disease - s/p PCI to RLE 8. Anxiety/Depression/PTSD 9. COVID 03/2022 Medications: 1. Apixaban 5mg po bid 2. Bisoprolol 10mg po daily 3. Atorvastatin 80mg po daily 4. NTG 0.4mg sl prn 5. Tiotropium 2.5mcg 2 inh po daily 6. Fluticasone/Salmeterol 500/50 1 inh bid 7. Albuterol/Ipratropium neb qid 8. Albuterol inh 2 puffs q4hprn 9. Ergocalciferol 50,000units po q7days Allergies/Adverse Reactions: LISINOPRIL Family History: no early CAD Social history: quit smoking in 2007 Physical Exam: BP: 149/71 (04/03/2024 13:33) HR: 86 (04/03/2024 13:33) Wt: 130.0 lb [58.97 kg] (04/03/2024 13:33) Ht: 69.0 in [175.3 cm] (04/03/2024 13:33) BMI: BODY MASS INDEX - 19.2 Gen: AAO, NAD Head: NCAT Eyes: EOMI Chest: Clear bilaterally Cardiac: normal rate, reg rhythm, no m/r/g Abd: soft, NT, NABS Ext: no LE edema/cyanosis/clubbing Neuro: moves all four, ambulates well Psych: normal affect, normal speech A/P: 1. Atherosclerotic Heart Disease of [place] Coronary Artery without Angina Pectoris - stable. His chest pain seems non-cardiac. Will continue secondary prevention. 2. Essential (Primary) Hypertension - BP has been elevated. Will start amlodipine 5mg po daily. He was on it previously and appeared to have tolerated. The hyponatremia did not occur until more than a year after he had been on the amlodipine. Will recheck Panel 1 in 1-2 weeks after starting. 3. Paroxysmal atrial fibrillation - patient is stable. He has elevated stroke risk, and is on apixaban. Will continue. Follow up in 1 year. I spent 25 minutes, reviewing history, performing an exam and evaluation, entering clinical information in EHR, interpreting results, counseling patient, reviewing imaging studies/labs, ordering meds/test/procedures. Does not include time by clerical staff. /mona/ Ethan Segundo MD Cardiology Attending Signed: 04/03/2024 14:02 04/03/2024 ADDENDUM STATUS: COMPLETED Correction on physical exam: There is poor air movements on both sides for lung exam. He was able to walk very slowly with assistance and O2 on. /mona/ Ethan Segundo MD Cardiology Attending Signed: 04/03/2024 14:25 04/07/2024 ADDENDUM STATUS: COMPLETED [place] exited clinic per MD. All medications and treatment plan were discussed with prior to exiting clinic by MD. to RTC 1 year with [facility] A-7 via F2F, per provider order/instruction above. If this provider is not available or requires overbook please alert Helpdesk Administrator. Appointment letter to be mailed. a) [place] to be scheduled for BMP in two weeks (I reminded today via phone) b) Results of testing ordered have been alerted automatically to provider to follow up and notify of results. /mona/ STEPHAN GEE case aide Signed: 04/07/2024 14:49 11/22/2024 ADDENDUM STATUS: COMPLETED Please schedule [place] with any gen cards bindu. recently hospitalized, now has life vest. Notes in [place] dated 09/16/24. Thank you. /mona/ Brenda BRIDGES RN [facility] NURSE Signed: 11/22/2024 15:15 Receipt Acknowledged By: 11/22/2024 15:47 /RASHIDA Manzo RN-CDD [facility] November 22, 2024 03:11 PM ADDENDUM: LOCAL TITLE: Addendum STANDARD TITLE: ADDENDUM DATE OF NOTE: NOVEMBER 22, 2024@15:11:41 ENTRY DATE: NOVEMBER 22, 2024@15:11:42 AUTHOR: BRENDA SANTOS COSIGNER: URGENCY: STATUS: COMPLETED Please schedule [place] with any gen cards bindu. recently hospitalized, now has life vest. Notes in [place] dated 09/16/24. Thank you. /mona/ Brenda BRIDGES RN RC NURSE Signed: 11/22/2024 15:15 Receipt Acknowledged By: 11/22/2024 15:47 /mona/ RASHIDA KAMARA RN --- Original Document --- 04/03/24 CARDIOLOGY CLINIC ATTENDING NOTE: (X)Nursing Intake Note Reviewed Pain: 0 (04/03/2024 13:33) 74 year old male with CAD, afib presents for follow up. Patient reports having a chest pain in the left side, and can occur at rest and not associated with exertion. The pain only lasts for a few seconds, and especially with deep breaths. Denies worsening orthopnea (adjustable bed, unchanged), LE edema, palpitations, syncope. Past Medical History: 1. Coronary artery disease - 09/2004: VFib arrest: RCA PCI ([place]) - 2007: RCA PCI in [place] (after a stress test) - 02/2021: RCA STEMI: s/p 3 PCI ([facility]) - 02/2021: EF 45% - 04/2022: EF: 30-45% - 06/2022: EF: 45-50% - 10/2022: EF: 50-55% - 06/2023: Nuclear stress test: Inf infarct, no ischemia. EF 52% 2. Paroxysmal atrial fibrillation - 04/2022 s/p DCCV - CHADSVASC (Age, HTN, CAD): 3 3. Hypertension 4. Mixed dyslipidemia 5. COPD (09/2022 PFT: severe obstructive disease, 3L O2 [place]) 6. GERD 7. Peripheral artery disease - s/p PCI to RLE 8. Anxiety/Depression/PTSD 9. COVID 03/2022 Medications: 1. Apixaban 5mg po bid 2. Bisoprolol 10mg po daily 3. Atorvastatin 80mg po daily 4. NTG 0.4mg sl prn 5. Tiotropium 2.5mcg 2 inh po daily 6. Fluticasone/Salmeterol 500/50 1 inh bid 7. Albuterol/Ipratropium neb qid 8. Albuterol inh 2 puffs q4hprn 9. Ergocalciferol 50,000units po q7days Allergies/Adverse Reactions: LISINOPRIL Family History: no early CAD Social history: quit smoking in 2007 Physical Exam: BP: 149/71 (04/03/2024 13:33) HR: 86 (04/03/2024 13:33) Wt: 130.0 lb [58.97 kg] (04/03/2024 13:33) Ht: 69.0 in [175.3 cm] (04/03/2024 13:33) BMI: BODY MASS INDEX - 19.2 Gen: AAO, NAD Head: NCAT Eyes: EOMI Chest: Clear bilaterally Cardiac: normal rate, reg rhythm, no m/r/g Abd: soft, NT, NABS Ext: no LE edema/cyanosis/clubbing Neuro: moves all four, ambulates well Psych: normal affect, normal speech A/P: 1. Atherosclerotic Heart Disease of [place] Coronary Artery without Angina Pectoris - stable. His chest pain seems non-cardiac. Will continue secondary prevention. 2. Essential (Primary) Hypertension - BP has been elevated. Will start amlodipine 5mg po daily. He was on it previously and appeared to have tolerated. The hyponatremia did not occur until more than a year after he had been on the amlodipine. Will recheck Panel 1 in 1-2 weeks after starting. 3. Paroxysmal atrial fibrillation - patient is stable. He has elevated stroke risk, and is on apixaban. Will continue. Follow up in 1 year. I spent 25 minutes, reviewing history, performing an exam and evaluation, entering clinical information in EHR, interpreting results, counseling patient, reviewing imaging studies/labs, ordering meds/test/procedures. Does not include time by clerical staff. /mona/ Ethan Segundo MD Cardiology Attending Signed: 04/03/2024 14:02 04/03/2024 ADDENDUM STATUS: COMPLETED Correction on physical exam: There is poor air movements on both sides for lung exam. He was able to walk very slowly with assistance and O2 on. /mona/ Ethan Segundo MD Cardiology Attending Signed: 04/03/2024 14:25 04/07/2024 ADDENDUM STATUS: COMPLETED [place] exited clinic per MD. All medications and treatment plan were discussed with prior to exiting clinic by MD. to RTC 1 year with [facility] A-7 via F2F, per provider order/instruction above. If this provider is not available or requires overbook please alert Helpdesk Administrator. Appointment letter to be mailed. a) to be scheduled for BMP in two weeks (I reminded today via phone) b) Results of testing ordered have been alerted automatically to provider to follow up and notify of results. /mona/ STEPHAN GEE case aide Signed: 04/07/2024 14:49 11/22/2024 ADDENDUM STATUS: COMPLETED Kimberley please schedule in [facility] A-7 Dr. Segundo first available. May OB if needed per Rashida. Thank you. /es/ RASHIDA KAMARA RN Signed: 11/22/2024 15:30 Receipt Acknowledged By: * AWAITING SIGNATURE * NABIL RUSSO,BRENDA GAFFNEY-CDD [facility] Apr 03, 2024 01:46 PM CARDIOLOGY ATTENDI OUTPATIENT NOTE: LOCAL TITLE: CARDIOLOGY CLINIC ATTENDING NOTE STANDARD TITLE: CARDIOLOGY ATTENDING OUTPATIENT NOTE DATE OF NOTE: APR 03, 2024@13:46 ENTRY DATE: APR 03, 2024@13:46:20 AUTHOR: ETHAN SEGUNDO EXP COSIGNER: URGENCY: STATUS: COMPLETED CARDIOLOGY CLINIC ATTENDING NOTE Has ADDENDA (X)Nursing Intake Note Reviewed Pain: 0 (04/03/2024 13:33) 74 year old male with CAD, afib presents for follow up. Patient reports having a chest pain in the left side, and can occur at rest and not associated with exertion. The pain only lasts for a few seconds, and especially with deep breaths. Denies worsening orthopnea (adjustable bed, unchanged), LE edema, palpitations, syncope. Past Medical History: 1. Coronary artery disease - 09/2004: VFib arrest: RCA PCI ([place]) - 2007: RCA PCI in [place] (after a stress test) - 02/2021: RCA STEMI: s/p 3 PCI ([facility]) - 02/2021: EF 45% - 04/2022: EF: 30-45% - 06/2022: EF: 45-50% - 10/2022: EF: 50-55% - 06/2023: Nuclear stress test: Inf infarct, no ischemia. EF 52% 2. Paroxysmal atrial fibrillation - 04/2022 s/p DCCV - CHADSVASC (Age, HTN, CAD): 3 3. Hypertension 4. Mixed dyslipidemia 5. COPD (09/2022 PFT: severe obstructive disease, 3L O2 [place]) 6. GERD 7. Peripheral artery disease - s/p PCI to RLE 8. Anxiety/Depression/PTSD 9. COVID 03/2022 Medications: 1. Apixaban 5mg po bid 2. Bisoprolol 10mg po daily 3. Atorvastatin 80mg po daily 4. NTG 0.4mg sl prn 5. Tiotropium 2.5mcg 2 inh po daily 6. Fluticasone/Salmeterol 500/50 1 inh bid 7. Albuterol/Ipratropium neb qid 8. Albuterol inh 2 puffs q4hprn 9. Ergocalciferol 50,000units po q7days Allergies/Adverse Reactions: LISINOPRIL Family History: no early CAD Social history: quit smoking in 2007 Physical Exam: BP: 149/71 (04/03/2024 13:33) HR: 86 (04/03/2024 13:33) Wt: 130.0 lb [58.97 kg] (04/03/2024 13:33) Ht: 69.0 in [175.3 cm] (04/03/2024 13:33) BMI: BODY MASS INDEX - 19.2 Gen: AAO, NAD Head: NCAT Eyes: EOMI Chest: Clear bilaterally Cardiac: normal rate, reg rhythm, no m/r/g Abd: soft, NT, NABS Ext: no LE edema/cyanosis/clubbing Neuro: moves all four, ambulates well Psych: normal affect, normal speech A/P: 1. Atherosclerotic Heart Disease of [place] Coronary Artery without Angina Pectoris - stable. His chest pain seems non-cardiac. Will continue secondary prevention. 2. Essential (Primary) Hypertension - BP has been elevated. Will start amlodipine 5mg po daily. He was on it previously and appeared to have tolerated. The hyponatremia did not occur until more than a year after he had been on the amlodipine. Will recheck Panel 1 in 1-2 weeks after starting. 3. Paroxysmal atrial fibrillation - patient is stable. He has elevated stroke risk, and is on apixaban. Will continue. Follow up in 1 year. I spent 25 minutes, reviewing history, performing an exam and evaluation, entering clinical information in EHR, interpreting results, counseling patient, reviewing imaging studies/labs, ordering meds/test/procedures. Does not include time by clerical staff. /mona/ Ethan Segundo MD Cardiology Attending Signed: 04/03/2024 14:02 04/03/2024 ADDENDUM STATUS: COMPLETED Correction on physical exam: There is poor air movements on both sides for lung exam. He was able to walk very slowly with assistance and O2 on. /es/ Ethan Segundo MD Cardiology Attending Signed: 04/03/2024 14:25 04/07/2024 ADDENDUM STATUS: COMPLETED exited clinic per . All medications and treatment plan were discussed with prior to exiting clinic by . [place] to RTC 1 year with [facility] A-7 via F2F, per provider order/instruction above. If this provider is not available or requires overbook please alert Helpdesk Administrator. Appointment letter to be mailed. a) to be scheduled for BMP in two weeks (I reminded today via phone) b) Results of testing ordered have been alerted automatically to provider to follow up and notify of results. /es/ STEPHAN GEE case aide Signed: 04/07/2024 14:49 11/22/2024 ADDENDUM STATUS: COMPLETED Please schedule with any gen cards bindu. [place] recently hospitalized, now has life vest. Notes in [place] dated 09/16/24. Thank you. /es/ Brenda BRIDGES, RN RC NURSE Signed: 11/22/2024 15:15 Receipt Acknowledged By: 11/22/2024 15:47 /es/ RASHIDA KAMARA RN 11/22/2024 ADDENDUM STATUS: COMPLETED Kimberley please schedule in [facility] A-7 Dr. Segundo first available. May OB if needed per Rashida. Thank you. /es/ RASHIDA KAMARA RN Signed: 11/22/2024 15:30 Receipt Acknowledged By: 11/23/2024 11:27 /mona/ Kimberley BROOKS 11/23/2024 ADDENDUM STATUS: COMPLETED Scheduled with patient over phone letter mailed. [facility] A-7 01/15/2025@13:00 Future patient choose a later date to get a 1300 appointment for travel time /mona/ Kimberley BROOKS Signed: 11/23/2024 11:29 11/23/2024 ADDENDUM STATUS: COMPLETED Dr. Segundo was recently with Resp failure/[place] records [place]. They sent him home with a Life vest. He is scheduled to see you January 15. Please review and advise if we should see in your clinic sooner may have to be OB? Or EP? Thank you. /mona/ RASHIDA KAMARA RN Signed: 11/23/2024 13:44 Receipt Acknowledged By: 11/24/2024 11:51 /mona/ Ethan Segundo MD Cardiology Attending 11/24/2024 ADDENDUM STATUS: COMPLETED Patient was admitted to the hospital at the end of Aug. That discharge summary was not very helpful in [facility]. Can we get a more detailed set of notes? Sounds like from the September overnight stay, he had a cath during the Aug admission, for which he was treated with pneumonia as well. Please coordinate echo (limited function) on same day as clinic follow up. Can overbook on 12/18. Thanks. /mona/ Ethan Segundo MD Cardiology Attending Signed: 11/24/2024 11:54 Receipt Acknowledged By: 11/24/2024 14:58 /mona/ RASHIDA KAMARA RN 11/24/2024 ADDENDUM STATUS: COMPLETED Please schedule OB on 12/18/[address] Segundo will need an ECHO same day as revisit. Please coordinate with Ed and ECHO. /mona/ RASHIDA KAMARA RN Signed: 11/24/2024 15:00 Receipt Acknowledged By: 11/24/2024 15:46 /mona/ TREY GOMEZ medical radiation tech 11/28/2024 09:17 /mona/ Kimberley Russo MSA/ASHLEY 11/28/2024 ADDENDUM STATUS: COMPLETED Scheduled with patient over phone letter mailed. [facility] A-7 12/18/2024@09:15 Future [facility] A-7 01/15/2025@13:00 Cancelled By Clinic /mona/ Kimberley Russo MSA/NA Signed: 11/28/2024 09:17 ETHAN SEGUNDO-CDD [facility] Apr 03, 2024 01:45 PM NURSING OUTPATIENT NOTE: LOCAL TITLE: [facility] MEDICINE CLINIC INTAKE NOTE STANDARD TITLE: NURSING OUTPATIENT NOTE DATE OF NOTE: APR 03, 2024@13:45 ENTRY DATE: APR 03, 2024@13:45:22 AUTHOR: MAICO NESS COSIGNER: URGENCY: STATUS: COMPLETED Reason for visit/chief complaint: B/P: 149/71 (04/03/2024 13:33) P: 86 (04/03/2024 13:33) R: 20 (04/03/2024 13:33) T: 98.1 F [36.7 C] (04/03/2024 13:33) HT: 69.0 in [175.3 cm] (04/03/2024 13:33) WT: 130.0 lb [58.97 kg] (04/03/2024 13:33) Are you having any pain or recurrent pain in the last several weeks/months? No Severity Scale (0) Location: Duration: Characteristics: Pain education material offered to patient (for pain > 3) No Risk factors history: Hypertension Yes BP Rechecked Yes Provider notified of BP greater of 140/90 Comments: 152/70, 149/71. No s/s of HTn crisis noted at this time. MD notified. Patient notified media supervisor available upon request for any examinations/procedures. The patient was given a list of his/her medications, instructed to review and discuss any changes or problems with their provider. Patient advised to carry a list of current medications and any allergies with them in the event of emergency situations. Allergies: local and remote [facility] ALL[facility]GY/ADR -------- 516^[facility]^516 VACCINES Medication Reconciliation ACTIVE OUTPATIENT MEDICATIONS LOCAL/REMOTE ALBUTEROL 3/IPRATROP 0.5MG/3ML INHL 3ML Directions: USE 1 AMP (3ML) IN NEBULIZER FOUR TIMES A DAY FOR BREATHING Quantity: 120 for 30 days Issued: 07/14/23 Filled: 11/11/23 Expires: 07/14/24 Refills: 1 Status: ACTIVE APIXABAN 5MG TAB Directions: TAKE ONE TABLET BY MOUTH TWICE A DAY TO THIN BLOOD. CALL ANTICOAGULATION CLINIC [phone] WITH QUESTIONS OR CONCERNS Quantity: 120 for 60 days Issued: 06/07/23 Filled: 03/09/24 Expires: 06/07/24 Refills: 2 Status: ACTIVE ATORVASTATIN CALCIUM 80MG TAB Directions: TAKE ONE TABLET BY MOUTH DAILY FOR CHOLESTEROL -DO NOT DRINK GRAPEFRUIT JUICE WHILE ON THIS DRUG Quantity: 90 for 90 days Issued: 07/14/23 Filled: 11/11/23 Expires: 07/14/24 Refills: 2 Status: ACTIVE BISOPROLOL FUMARATE 10MG TAB Directions: [...] 11/30/23 Expires: 07/14/24 Refills: 2 Status: ACTIVE NITROGLYCERIN 0.4MG SL TAB BTL [...] 11/30/23 Expires: 07/14/24 Refills: 2 Status: ACTIVE ALBUTEROL 90MCG (CFC-F) 200D ORAL INHL Directions: INHALE 2 PUFFS BY INHALATION EVERY 4 HOURS NEEDED FOR WHEEZING, COUGHING OR SHORTNESS OF BREATH Quantity: 3 for 90 days Issued: 03/09/24 Filled: 04/16/24 Expires: 03/10/25 Refills: 3 Status: ACTIVE/SUSP No remote medications found. PENDING OUTPATIENT MEDICATONS (LOCAL/REMOTE): No local medications found. No remote medications found. ACTIVE NONVA MEDICATIONS (LOCAL): NO KNOWN NON-VA MEDS Directions: PT ASKED ABOUT NON-VA MEDS MISCELLANEOUS DIRECTED Status: ACTIVE OUTPATIENT MEDICATIONS (LOCAL)WITHIN 90 DAYS: ALBUTEROL 90MCG (CFC-F) 200D ORAL INHL Directions: INHALE 2 PUFFS BY INHALATION EVERY 4 HOURS NEEDED FOR WHEEZING, COUGHING OR SHORTNESS OF BREATH Quantity: 3 for 90 days Issued: 03/09/24 Filled: 04/16/24 Expires: 03/10/25 Refills: 3 Status: ACTIVE/SUSP DISCONTINUED OUTPATIENT MEDICATIONS (LOCAL) WITHIN 90 DAYS: ALBUTEROL 90MCG (CFC-F) 200D ORAL INHL Directions: INHALE 2 PUFFS BY INHALATION EVERY 4 HOURS NEEDED FOR WHEEZING, COUGHING OR SHORTNESS OF BREATH Quantity: 3 for 90 days Issued: 03/09/24 Filled: 04/16/24 Expires: 03/10/25 Refills: 3 Status: ACTIVE/SUSP AEROCHAMBER PLUS Directions: CHAMBER DIRECTED DAILY NEEDED. MAXIMUM OF ONCE PER DAY. Quantity: 1 for 30 days Issued: 02/04/24 Filled: 02/04/24 Expires: 03/05/24 Refills: 0 Status: DISCONTINUED ALBUTEROL 90MCG (CFC-F) 200D ORAL INHL Directions: INHALE 2 PUFFS BY INHALATION EVERY 4 HOURS NEEDED FOR WHEEZING, COUGHING OR SHORTNESS OF BREATH Quantity: 3 for 90 days Issued: 11/03/23 Filled: 11/08/23 Expires: 02/01/24 Refills: 0 Status: DISCONTINUED ALBUTEROL 90MCG (CFC-F) 200D ORAL INHL Directions: INHALE 2 PUFFS BY MOUTH FOUR TIMES A DAY NEEDED FOR SHORTNESS OF BREATH Quantity: 1 for 30 days Issued: 02/04/24 Filled: 02/04/24 Expires: 03/05/24 Refills: 0 Status: DISCONTINUED ALBUTEROL 90MCG (CFC-F) 200D ORAL INHL Directions: INHALE 2 PUFFS BY INHALATION EVERY 4 HOURS NEEDED FOR WHEEZING, COUGHING OR SHORTNESS OF BREATH Quantity: 3 for 90 days Issued: 12/09/23 Filled: 01/27/24 Expires: 12/09/24 Refills: 3 Status: DISCONTINUED BENRALIZUMAB 30MG/ML INJ PEN 1ML Directions: INJECT 1ML UNDER THE SKIN MONTHLY FOR 3 MONTHS, THEN INJECT 1ML EVERY 2 MONTHS FOR ASTHMA Quantity: 3 for 90 days Issued: 06/24/23 Filled: 06/25/23 Expires: 06/24/24 Refills: 3 Status: DISCONTINUED ISOSORBIDE MONONITRATE 30MG SA TAB Directions: TAKE ONE TABLET BY MOUTH DAILY TO PREVENT CHEST PAIN Quantity: 90 for 90 days Issued: 07/16/23 Filled: 07/17/23 Expires: 07/16/24 Refills: 3 Status: DISCONTINUED PREDNISONE 20MG TAB Directions: TAKE TWO TABLETS BY MOUTH EVERY MORNING FOR LUNGS WITH FOOD Quantity: 8 for 4 days Issued: 02/04/24 Filled: 02/04/24 Expires: 03/05/24 Refills: 0 Status: DISCONTINUED ISOSORBIDE MONONITRATE 30MG SA TAB Directions: TAKE ONE TABLET BY MOUTH DAILY TO PREVENT CHEST PAIN Quantity: 30 for 30 days Issued: 06/01/23 Filled: 06/01/23 Expires: 06/01/24 Refills: 5 Status: DISCONTINUED (EDIT) CLINIC MEDICATIONS (LOCAL): No local medications found. Reviewed current medications with patient/signficant other, patient/significant other reports patient taking ALL VA, Non VA & OTC medications as listed on CPR[facility] medication tab outpatient section. Yes *Printed copy of medication list provided to patient and reviewed. Yes *Explained to the patient the importance of keeping providers updated on medication changes and to carrying an updated list of medication at all times in case of an emergency situation. Yes Tobacco Use Screening: The patient has never used tobacco. /mona/ MAICO NESS Licensed Practical Nurse Signed: 04/03/2024 13:46 MAICO NESS-ALL [facility]
--- OUTSIDE RECORDS SUMMARY | 2024-04-18 05:49 | XMS_ITS | Encounter Summary ---
Author Name [facility] [facility] [place] Address [address] [place] [address] Care Team Providers Care Church Secretary Name Role Phone IRASEMA GIRON Primary Care [...] PART A Jun 04, 2009 PART A [id number] [place] PATIENT MEDICARE (WNR) MEDICARE (M) PART A Jun 04, 2009 PART A [id number] [place] PATIENT MEDICARE (WNR) MEDICARE (M) PART A Jun 04, 2009 PART A [id number] [place] PATIENT MEDICARE (WNR) MEDICARE (M) PART A Jun 04, 2009 PART A [id number] [place] PATIENT MEDICARE (WNR) MEDICARE (M) PART A Jun 04, 2009 PART A [id number] [place] PATIENT Selected Encounter This section includes the information on record at [place] for the Encounter. Date/Time Encounter Type Encounter Description Reason Pro vider Source Apr 18, 2024 09:49 AM Outpatient Encounter ADMIN PAT ACTIVTIES (MASNONCT) IHE Encounter Template Text not used by [facility] Plan of Treatment: Future Appointments (+ 6 months) and Future Tests (+/- 45 days) The Plan of Treatment section includes future care activities for the patient from all [place] [facility] This section includes future appointments and future orders which are active, pending or scheduled. Future Appointments This section includes appointments that were scheduled to occur 6 months from the date of the Encounter, up to a maximum of 20 appointments. The data comes from all [facility]. Appointment Date/Time Appointment Type Appointme nt Facility Name Apr 27, 2024 08:30 AM [facility] Apr 27, 2024 09:15 AM [facility]ONE [place] [facility] Apr 27, 2024 10:00 AM [facility] - [facility]ICINE [facility] Apr 27, 2024 11:00 AM [facility] - NONE [place] [facility] Apr 28, 2024 10:00 AM [facility] - NONE [place] [facility] May 17, 2024 01:00 PM [facility] May 24, 2024 10:00 [facility] May 24, 2024 10:30 AM [facility]ONE [place] [facility] May 24, 2024 11:00 AM [facility] Jun 08, 2024 08:01 AM [facility] Aug 29, 2024 11:00 AM [facility]ICINE [facility] Sep 28, 2024 09:00 AM [facility] Active, Pending, and Scheduled Orders This section includes a listing of several types of active, pending, and scheduled orders, including clinic medications orders, diagnostic test orders, procedure orders and consult orders; where the start date of the order is 45 days before the date of the Encounter or 45 days after the date of theEncounter. The data comes from all [facility]. Test Date/Time Test Type Test Details Facility Name May 06, 2024 12:00 AM Laboratory - Chemistry Order GLYCOHEMOGLOBIN [id number] BLOOD SP ONCE [facility] May 06, 2024 12:00 AM Laboratory - Chemistry Order CBC/PLT [id number] BLOOD SP ONCE [facility] May 06, 2024 12:00 AM Laboratory - Chemistry Order PANEL 5 [id number] SP ONCE [facility] May 06, 2024 12:00 AM Laboratory - Chemistry Order LIPID PROFILE [id number] SP ONCE [facility] Lab Results: +/- 30 days of the [...] Type Comment Apr 27, 2024 11:12 AM [facility] ANTI-CCP (SRL) SERUM Specimen Type: SERUM No comment entered. Ordering Provider: JAYDON ALCALA Report Released Date/Time: Apr 27, 2024 10:20 AM Reporting Lab: [address] [address] Performing Lab: [address] [address] ANTI-CCP (SRL) <0.5 0.5-2.9 Apr 27, 2024 11:12 AM [facility] FLORI SCREEN SERUM Specimen Type: SERUM No comment entered. Ordering Provider: JAYDON ALCALA Report Released Date/Time: Apr 27, 2024 10:20 AM Reporting Lab: [address] [address] Performing Lab: [address] [address] FLORI SCREEN Negative Negative Apr 27, 2024 11:12 AM [facility] RHEUMATOID FACTOR SERUM Specimen T ype: SERUM No comment entered. Ordering Provider: JAYDON ALCALA Report Released Date/Time: Apr 27, 2024 10:20 AM Reporting Lab: [place] [id number] Performing Lab: [address] [address] RHEUMATOID FACTOR <8 NEGATIVE [IU]/mL <8 NEGATIVE Apr 27, 2024 11:12 AM [facility] ANTI-NUCLEAR Ab SERUM Specimen Typ e: SERUM No comment entered. Ordering Provider: JAYDON ALCALA Report Released Date/Time: Apr 27, 2024 10:20 AM Reporting Lab: [address] [address] Performing Lab: [address] [address] ANTI-NUCLEAR Ab <1:80 <1:80 Apr 27, 2024 11:12 AM [facility] eGFR + CREATININE PLASMA Specimen Type: PLASM [...] Mar 28, 2024 06:29 PM Reporting Lab: [address] [address] Performing Lab: [address] [address] CREATININE 0.56 mg/dL L 0.72-1.25 eGFR (CKD-EPI) >90 Apr 27, 2024 11:12 AM [facility] CBC/PLT BLOOD Specimen Type: BLOOD No comment entered. Ordering Provider: GIFTY GREGORY Report Released Date/Time: Mar 28, 2024 06:29 PM Reporting Lab: [address] [address] Performing Lab: [address] [address] WBC 5.0 10*3/uL 5.0-10.0 RBC 4.37 10*6/uL L 4.6-6.2 HGB 12.7 g/dL L 14.0-18.0 HCT 39.5 L 42.0-52.0 MCV 90.4 fL 80.0-94.0 MCH 29.1 pg 27.0-31.0 MCHC 32.2 g/dL 32.0-36.0 PLT 219 10*3/uL 150-450 MPV 9.0 fL 9.0-13.1 RDW 12.8 11.0-16.0 NRBC 0.0 0.0-0.0 Apr 27, 2024 11:12 AM [facility] CRP (for acute inflammation) PLASMA [...] Apr 27, 2024 10:20 AM Reporting Lab: [facility] [address] [facility] [address] Performing Lab: [place] [id number] [facility] [address] CRP (for acute inflammation) 21.6 mg/L H 0 .0-5.0 Apr 27, 2024 11:12 AM [facility] AUTOMATED DIFF BLOOD Specimen Type : BLOOD No comment entered. Ordering Provider: JAYDON ALCALA Report Released Date/Time: Apr 27, 2024 10:20 AM Reporting Lab: [facility] [address] [facility] [address] Performing Lab: [facility] [address] [facility] [address] A-LYMPH % 22.2 L 24.0-44.0 A-MONO % 9.4 H 0.1-6.0 A-GRAN % 67.6 42.0-75.0 A-LYMPH # 1.11 10*3/uL L 1.20-3.40 A-MONO # 0.47 10*3/uL 0.00-0.60 A-GRAN # 3.37 10*3/uL 1.40-6.50 A-BASO % 0.6 0.0-3.0 A-BASO # 0.03 10*3/uL 0.00-0.20 A-EOS % 0.0 0.0-10.0 A-EOS # 0.00 10*3/uL 0.00-0.70 A-IG % 0.2 0.0-0.5 A-IG # 0.01 10*3/uL 0.00-0.06 Apr 27, 2024 11:12 AM [facility] PANEL 5 PLASMA Specimen Type: [...] Apr 27, 2024 10:20 AM Reporting Lab: [address] [phone] Performing Lab: [address] [phone] CREATININE 0.56 mg/dL L 0.72-1.25 UREA NITROGEN [...] and tobacco- related health factors from the [place] facility where the Encounter took place. Current Smoking Status This section includes the most current smoking, or tobacco-related health factor, from the [place] facility where the Encounter took place. Date/Time Current Smoking Status Comment Facil ity Apr 03, 2024 01:15 PM VA-TOBACCO NEVER USED [facility] Tobacco Use History This section includes a history of the smoking, or tobacco-related health factors, that were collected on or before the date of the Encounter. The data comes from the [place] facility where the Encounter took place. Date/Time Smoking Status/Tobacco Use Comment F acility Jan 21, 2016 04:53 PM NON-TOBACCO USE INPATIENT [facility] Jan 13, 2016 06:51 AM V9 QUIT TOBACCO >7 YEARS AGO [facility] Advance Directives: All historical and current Section Date Range: From patient's date of to the date document was created. This section includes ALL of a patient's completed or amended [place] Advance and Rescinded Directives. The entries below indicate that a directive exists for the patient, but an actual copy is not included with this document. The data comes from all [place] facilities. Date Advance Directives Provider Source Apr [...] the Encounter. The data comes from all [place] treatment facilities. Date/Time Radiology Report Provider Source Apr 27, 2024 10:[address] CHEST HIGH RESO LUTION CT: MARIZA JAY [id number] M Exm Date: APR 27, 2024@10:28 Req Phys: JAYDON ALCALA Loc: [facility] (Req'g Loc) Img Loc: CT SCAN Service: [place] [address] (Case [id number] COMPLETE)CT CHEST HIGH RESOLUTION CT (CT Detailed) CPT:56078 Reason for Study: ILD Clinical History: Suspected Interstitial Lung Disease Report Status: Verified Date Reported: MAY 02, 2024 Date Verified: MAY 02, 2024 [place] Setter E-Sig: Report: CT chest high resolution Inspiratory [...] Staff: DHARA WYMAN, Staff Radiologist Verified by airborne mission systems superintendent for DHARA WYMAN /DHARA SHOOKLeona [facility] Encounter Notes: All associated encounter notes This section contains the clinical notes associated to the Encounter. Date/Time Encounter Note(s) Provider Source Apr 18, 2024 09:49 AM ADMINISTRATIVE NOT E: LOCAL TITLE: CLERICAL/ADMIN NOTE STANDARD TITLE: ADMINISTRATIVE NOTE DATE OF NOTE: APR 18, 2024@09:49 ENTRY DATE: APR 18, 2024@09:50:03 AUTHOR: VICTORIA ROSALES EXP COSIGNER: URGENCY: STATUS: COMPLETED CLERICAL/ADMIN NOTE Has ADDENDA FOR BP CHECK PER EQM MEASUREMENTS spoke with and scheduled 04/25/2024@ 9:30 /mona/ Victoria Rosales Advanced Catcher Helper Signed: 04/18/2024 09:50 04/25/2024 ADDENDUM STATUS: COMPLETED FOR BP CHECK PER EQM MEASUREMENTS spoke with and rescheduled to 04/28/2024@10:00 /mona/ Victoria Rosales Advanced Catcher Helper Signed: 04/25/2024 09:55 VICTORIA ROSALESLeona [facility]
--- OUTSIDE RECORDS SUMMARY | 2024-04-27 04:30 | XMS_ITS | Encounter Summary ---
Author Name [facility] Address [address] [place] [address] Care Team Providers Care Clay Digger Name Role Phone IRASEMA GIRON Primary Care [...] PART A Jun 04, 2009 PART A [id number] [place] PATIENT MEDICARE (WNR) MEDICARE (M) PART A Jun 04, 2009 PART A [id number] [place] PATIENT MEDICARE (WNR) MEDICARE (M) PART A Jun 04, 2009 PART A [id number] [place] PATIENT MEDICARE (WNR) MEDICARE (M) PART A Jun 04, 2009 PART A [id number] [place] PATIENT MEDICARE (WNR) MEDICARE (M) PART A Jun 04, 2009 PART A [id number] [place] PATIENT Selected Encounter This section includes the information on record at [place] for the Encounter. Date/Time Encounter Type Encounter Description Reason Provider Source Apr 27, 2024 08:30 AM OFFICE O/P EST HI 40 MIN PULMONARY/CHEST ICD-10-CM J96.11 Chronic respiratory failure with hypoxia CARRIE VELASQUEZ Brian Encounter Template Text not used by [place] Assessments - Encounter Diagnoses This section includes the primary and secondary diagnoses documented for the Encounter. Date/Time Primary/Secondary Diagnosis Diagnosis Name Provider Source Apr 27, 2024 11:25 AM PRIMARY Chronic respiratory failure with hypoxia JAYDON ALCAL[facility] Apr 27, 2024 11:25 AM SECONDARY Chronic obstructive pulmonary disease, unspecified [facility]DON [facility]CAL[facility] Plan of Treatment: Future Appointments (+ 6 months) and Future Tests (+/- 45 days) The Plan of Treatment section includes future care activities for the patient from [facility] This section includes future appointments and future orders which are active, pending or scheduled. Future Appointments This section includes appointments that were scheduled to occur 6 months from the date of the Encounter, up to a maximum of 20 appointments. The data comes from all [facility]. Appointment Date/Time Appointment Type Appointme nt Facility Name Apr 28, 2024 10:00 AM AMBULATORY - NONE [facility] May 17, 2024 01:00 PM AMBULATORY - MEDICINE [facility] May 24, 2024 10:00 AM AMBULATORY - MEDICINE [facility] May 24, 2024 10:30 AM AMBULATORY - NONE [facility] May 24, 2024 11:00 AM AMBULATORY - MEDICINE [facility] Jun 08, 2024 08:01 AM AMBULATORY - MEDICINE [facility] Aug 29, 2024 11:00 AM AMBULATORY - MEDICINE [facility] Sep 28, 2024 09:00 AM AMBULATORY - MEDICINE [facility] Active, Pending, and Scheduled Orders This section includes a listing of several types of active, pending, and scheduled orders, including clinic medications orders, diagnostic test orders, procedure orders and consult orders; where the start date of the order is 45 days before the date of the Encounter or 45 days after the date of theEncounter. The data comes from all [facility] treatment facilities. Test Date/Time Test Type Test Details Facility Name May 06, 2024 12:00 AM Laboratory - Chemistry Order LIPID PROFILE [id number] SP ONCE [facility] May 06, 2024 12:00 AM Laboratory - Chemistry Order GLYCOHEMOGLOBIN [id number] BLOOD SP ONCE [facility] May 06, 2024 12:00 AM Laboratory - Chemistry Order PANEL 5 [id number] SP ONCE [facility] May 06, 2024 12:00 AM Laboratory - Chemistry Order CBC/PLT [id number] BLOOD SP ONCE [facility] Lab Results: +/- 30 days of the encounter This section includes the Chemistry and Hematology Lab Results on record with [facility] for the patient. Radiology Reports and Pathology Reports are provided separately, in subsequent sections. Lab Results This section contains the Chemistry/Hematology Results that were resulted 30 days before or 30 daysafter the date of the Encounter. Date/Time Source Result Type Result - Unit Interpretation Reference Range Specimen Type Comment May 24, 2024 10:05 AM [facility] N CBC/PLT BLOOD Specimen Type: BLOOD No comment entered. Ordering Provider: IRASEMA GIRON Report Released Date/Time: May 03, 2024 09:16 AM Reporting Lab: [address] [address] Performing Lab: [address] [address] WBC 8.4 10*3/uL 5.0-10.0 RBC 4.27 10*6/uL L 4.6-6.2 HGB 12.7 g/dL L 14.0-18.0 HCT 39.1 L 42.0-52.0 MCV 91.6 fL 80.0-94.0 MCH 29.7 pg 27.0-31.0 MCHC 32.5 g/dL 32.0-36.0 PLT 238 10*3/uL 150-450 MPV 9.2 fL 9.0-13.1 RDW 15.1 11.0-16.0 NRBC 0.0 0.0-0.0 Apr 27, 2024 11:12 AM [facility] ANTI-CCP (SRL) SERUM Specimen Type : SERUM No comment entered. Ordering Provider: JAYDON ALCALA Report Released Date/Time: Apr 27, 2024 10:20 AM Reporting Lab: [address] [address] Performing Lab: [place] [phone] ANTI-CCP (SRL) <0.5 0.5-2.9 Apr 27, 2024 11:12 AM [facility] FLORI SCREEN SERUM Specimen Type: SERUM No comment entered. Ordering Provider: JAYDON ALCALA Report Released Date/Time: Apr 27, 2024 10:20 AM Reporting Lab: [address] [phone] Performing Lab: [place] [phone] FLORI SCREEN Negative Negative Apr 27, 2024 11:12 AM [facility] RHEUMATOID FACTOR SERUM Specimen T ype: SERUM No comment entered. Ordering Provider: JAYDON ALCALA Report Released Date/Time: Apr 27, 2024 10:20 AM Reporting Lab: [address] [address] Performing Lab: [place] [phone] RHEUMATOID FACTOR <8 NEGATIVE [IU]/mL <8 NEGATIVE Apr 27, 2024 11:12 AM [facility] ANTI-NUCLEAR Ab SERUM Specimen Typ e: SERUM No comment entered. Ordering Provider: JAYDON ALCALA Report Released Date/Time: Apr 27, 2024 10:20 AM Reporting Lab: [address] [phone] Performing Lab: [place] [phone] ANTI-NUCLEAR Ab <1:80 <1:80 Apr 27, 2024 [...] Mar 28, 2024 06:29 PM Reporting Lab: [address] [phone] Performing Lab: [address] [address] CREATININE 0.56 mg/dL L 0.72-1.25 eGFR (CKD-EPI) >90 Apr 27, 2024 11:12 AM [facility] CRP (for acute inflammation) PLASMA Specimen [...] Apr 27, 2024 10:20 AM Reporting Lab: [address] [phone] Performing Lab: [address] [phone] CRP (for acute inflammation) 21.6 mg/L H 0 .0-5.0 Apr 27, 2024 11:12 AM [facility] CBC/PLT BLOOD Specimen Type: BLOOD No comment entered. Ordering Provider: GIFTY GREGORY Report Released Date/Time: Mar 28, 2024 06:29 PM Reporting Lab: [address] [address] Performing Lab: [place] [phone] WBC 5.0 10*3/uL 5.0-10.0 RBC 4.37 10*6/uL L 4.6-6.2 HGB 12.7 g/dL L 14.0-18.0 HCT 39.5 L 42.0-52.0 MCV 90.4 fL 80.0-94.0 MCH 29.1 pg 27.0-31.0 MCHC 32.2 g/dL 32.0-36.0 PLT 219 10*3/uL 150-450 MPV 9.0 fL 9.0-13.1 RDW 12.8 11.0-16.0 NRBC 0.0 0.0-0.0 Apr 27, 2024 11:12 AM [facility] AUTOMATED DIFF BLOOD Specimen Type : BLOOD No comment entered. Ordering Provider: JAYDON ALCALA Report Released Date/Time: Apr 27, 2024 10:20 AM Reporting Lab: [address] [phone] Performing Lab: [address] [address] A-LYMPH % 22.2 L 24.0-44.0 A-MONO % 9.4 H 0.1-6.0 A-GRAN % 67.6 42.0-75.0 A-LYMPH # 1.11 10*3/uL L 1.20-3.40 A-MONO # 0.47 10*3/uL 0.00-0.60 A-GRAN # 3.37 10*3/uL 1.40-6.50 A-BASO % 0.6 0.0-3.0 A-BASO # 0.03 10*3/uL 0.00-0.20 A-EOS % 0.0 0.0-10.0 A-EOS # 0.00 10*3/uL 0.00-0.70 A-IG % 0.2 0.0-0.5 A-IG # 0.01 10*3/uL 0.00-0.06 Apr 27, 2024 11:12 AM [facility] PANEL 5 PLASMA Specimen Type: PLASM [...] Apr 27, 2024 10:20 AM Reporting Lab: [address] [phone] Performing Lab: [address] [address] CREATININE 0.56 mg/dL L 0.72-1.25 UREA NITROGEN [...] and tobacco- related health factors from the [place] facility where the Encounter took place. Current Smoking Status This section includes the most current smoking, or tobacco-related health factor, from the [place] facility where the Encounter took place. Date/Time Current Smoking Status Comment Facil ity Apr 03, 2024 01:15 PM VA-TOBACCO NEVER USED [facility] Tobacco Use History This section includes a history of the smoking, or tobacco-related health factors, that were collected on or before the date of the Encounter. The data comes from the [place] facility where the Encounter took place. Date/Time Smoking Status/Tobacco Use Comment F acility Jan 21, 2016 04:53 PM NON-TOBACCO USE INPATIENT [facility] Jan 13, 2016 06:51 AM V9 QUIT TOBACCO >7 YEARS AGO [facility] Advance Directives: All historical and current Section Date Range: From patient's date of to the date document was created. This section includes ALL of a patient's completed or amended [place] Advance and Rescinded Directives. The entries below indicate that a directive exists for the patient, but an actual copy is not included with this document. The data comes from all [place] facilities. Date Advance Directives Provider Source Apr [...] the Encounter. The data comes from all [place] treatment facilities. Date/Time Radiology Report Provider Source Apr 27, 2024 10:[address] CHEST HIGH RESO LUTION CT: MARIZA MOSHER [id number] -[id number] M Exm Date: APR 27, 2024@10:28 Req Phys: JAYDON ALCALA Pat Loc: [facility] (Req'g Loc) Img Loc: CT SCAN Service: [place] [address] (Case [id number] COMPLETE)CT CHEST HIGH RESOLUTION CT (CT Detailed) CPT:56137 Reason for Study: ILD Clinical History: Suspected Interstitial Lung Disease Report Status: Verified Date Reported: MAY 02, 2024 Date Verified: MAY 02, 2024 Outside Laborer E-Sig: Report: CT chest high resolution Inspiratory [...] Staff: DHARA WYMAN, Staff Radiologist Verified by wedding photographer for DHARA WYMAN /DHARA [facility] Encounter Notes: All associated encounter notes This section contains the clinical notes associated to the Encounter. Date/Time Encounter Note(s) Provider Source Apr 27, 2024 09:40 AM NURSING OUTPATIENT NOTE: LOCAL TITLE: [facility] INTAKE NOTE STANDARD TITLE: NURSING OUTPATIENT NOTE DATE OF NOTE: APR 27, 2024@09:40 ENTRY DATE: APR 27, 2024@09:40:45 AUTHOR: MIREYA TINSLEY EXP COSIGNER: URGENCY: STATUS: COMPLETED Reason for visit/chief complaint: Follow up B/P: 108/64 (04/27/2024 09:31) P: 59 (04/27/2024 09:31) R: 20 (04/03/2024 13:33) T: 97.2 F [36.2 C] (04/27/2024 09:31) HT: 69.0 in [175.3 cm] (04/03/2024 13:33) WT: 133.0 lb [60.33 kg] (04/27/2024 09:31) Are you having any pain or recurrent pain in the last several weeks/months? No Location: Duration: Characteristics: Pain education material offered to patient (for pain > 3) No Risk factors history: Hypertension Yes BP Rechecked No Comments: Patient notified jig and fixture repairer available upon request for any examinations/procedures. The patient was given a list of his/her medications, instructed to review and discuss any changes or problems with their provider. Patient advised to carry a list of current medications and any allergies with them in the event of emergency situations. Allergies: local and remote LISINOPRIL FACILITY ALLERGY/ADR -------- 516^[facility]^516 VACCINES Medication Reconciliation ACTIVE OUTPATIENT MEDICATIONS [...] Filled: 04/16/24 Expires: 03/10/25 Refills: 3 Status: ACTIVE AMLODIPINE BESYLATE 5MG TAB Directions: TAKE ONE TABLET BY MOUTH DAILY FOR HIGH BLOOD PRESSURE -DO NOT DRINK GRAPEFRUIT JUICE WHILE ON THIS DRUG Quantity: 90 for 90 days Issued: 04/03/24 Filled: 04/04/24 Expires: 04/04/25 Refills: 3 Status: ACTIVE APIXABAN 5MG TAB Directions: TAKE ONE TABLET BY MOUTH TWICE A DAY TO THIN BLOOD. CALL ANTICOAGULATION CLINIC [phone] WITH QUESTIONS OR CONCERNS Quantity: 120 for [...] ACTIVE No remote medications found. PENDING OUTPATIENT MEDICATONS (LOCAL/REMOTE): No local medications found. No remote medications found. ACTIVE NONVA MEDICATIONS (LOCAL): NO KNOWN NON-VA MEDS Directions: PT ASKED ABOUT NON-VA MEDS MISCELLANEOUS DIRECTED Status: ACTIVE OUTPATIENT MEDICATIONS (LOCAL)WITHIN 90 DAYS: No local medications found. DISCONTINUED OUTPATIENT MEDICATIONS (LOCAL) WITHIN 90 DAYS: AEROCHAMBER PLUS Directions: CHAMBER DIRECTED DAILY NEEDED. [...] in case of an emergency situation. Yes /mona/ MIREYA TINSLEY LPN Signed: 04/27/2024 09:41 MIREYA TINSLEY-[facility] Apr 27, 2024 08:19 AM PULMONARY NOTE: LOCAL TITLE: PULMONARY CLINIC PHYSICIAN NOTE STANDARD TITLE: PULMONARY NOTE DATE OF NOTE: APR 27, 2024@08:19 ENTRY DATE: APR 27, 2024@08:19:53 AUTHOR: JAYDON ALCALA COSIGNER: CARRIE VELASQUEZ URGENCY: STATUS: COMPLETED PULMONARY CLINIC PHYSICIAN NOTE Has ADDENDA CC: f/u dyspnea HPI: Mr. Mosher is a 74 yo M with ongoing chronic hypoxic respiratoy failure with airway-centered disease of unclear etiology, pneumothorax post-transbronchial biopsy (resolved), Afib, CAD, HFmrEF, HTN, VINOD, HLD, and GERD who presents as follow up. He was initially seen by Dr. Hunter on 09/24/22 for SAWYER. At that time he stated his symptoms started 03/2022 after he had COVID. Then he had a new diagnosis of Afib and heart failure which worsened his respiratory symptoms (but they persisted after optimization of cardiac issues). He could only walk 10-15 feet before getting SOB. He is on triple inhaler therapy. Was using Nebs 4-5 times a day. He did not have a cough, wheeze, or fevers. There was concern for HP given his bird exposure so he was referred for bronch with TBBx. He underwent a bronch with BAL and TBBx on 11/06/[address] Arana (results are all unrevealing, see below). Over the next few days he developed chest pain and dyspnea. He was found to have a pneumothorax and was admitted to the [facility] with chest tube placement from 11/09/22 - 11/14/22. 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 Today he reports feeling overall worse. He feels in the last several months his functional status has declined due to worsening dyspnea. He can hardly walk anymore. He is on 3L NC now. He stopped the fasenra because he didnt believe it was helping. he is also not consistently using his inhalers (LABA/LAMA/ICS). He did pulmonary rehab sometime last year. He notes birds are still in his house though he is not working with them closely over the last few months, but they sleep in the house in a room by the [facility]. FH: Denies any family history of lung diseases SH: Tobacco: Prior smoking from [id number]. 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 He has cockatoos, macaws and other exotic birds. Patient did note that he had gotten a new macaw around the time that his symptoms began. Review of Systems: 14 point ROS was performed, everything is negative except mentioned in HPI. ---- PMH Active problems - Active problems - Computerized Problem List is the source for the followin. Heart failure 2. Vitamin D deficiency 3. Old myocardial infarction 4. History of cardiac arrest 5. Sensorineural hearing loss, bilateral 6. Mixed hyperlipidemia 7. 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 Peripheral arterial occlusive disease 9. Renal artery stenosis 10. Moderate chronic obstructive pulmonary disease 11. Anxiety (SNOMED CT 69332000) 12. Depression (SNOMED CT 33649264) 13. Benign essential hypertension (SNOMED CT 6893211) 14. Carotid artery stenosis 15. Gastroesophageal reflux disease 16. Posttraumatic stress disorder 17. Tinnitus 18. Hearing loss 19. Spinal stenosis in cervical region 20. 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 (SNOMED CT 301290529) Medications: Active Outpatient Medications (including Supplies): Active Outpatient Medications [...] ACTIVE TO THIN BLOOD. CALL ANTICOAGULATION CLINIC [phone] WITH QUESTIONS OR CONCERNS 4) ASPIRIN 81MG EC TAB TAKE ONE TABLET BY MOUTH DAILY ACTIVE FOR HEART 5) ATORVASTATIN CALCIUM 80MG TAB TAKE ONE TABLET BY ACTIVE MOUTH DAILY FOR CHOLESTEROL -DO NOT DRINK GRAPEFRUIT JUICE WHILE ON THIS DRUG 6) BISOPROLOL FUMARATE 10MG TAB TAKE ONE TABLET BY MOUTH ACTIVE DAILY FOR BLOOD PRESSURE/HEART 7) FLUTICAS 500/SALMETEROL 50 INHL DISK 60 INHALE 1 ACTIVE INHALATION BY MOUTH TWICE A DAY FOR BREATHING -RINSE MOUTH AND SPIT AFTER EACH USE 8) FUROSEMIDE 20MG TAB TAKE ONE TABLET BY MOUTH DAILY ACTIVE NEEDED FOR FLUID 9) LISINOPRIL 20MG TAB TAKE ONE-HALF TABLET BY MOUTH ACTIVE DAILY FOR BLOOD PRESSURE/HEART 10) TIOTROPIUM 2.5MCG/ACTUAT 60D ORAL INHL INHALE 2 ACTIVE INHALATIONS BY MOUTH DAILY FOR BREATHING Active Non-VA Medications Status 1) Non-VA NO KNOWN NON-VA MEDS PT ASKED ABOUT NON-VA ACTIVE MEDS MISCELLANEOUS DIRECTED 11 Total Medications Allergies: LISINOPRIL ======= Physical Exam: ======= Gen: chronically ill appearing Eyes: anicteric sclera Neck: trachea midline Resp: poor air movement bilaterally CV: RRR MSK: trace pedal edema Skin: no rashes/lesions Psych: appropriate mood/affect ====== Labs: ====== eos normal HP panel negative 11/05/22 Last CRP 6 ======== Studies/Tests ======== Imaging, PFTs and echo reviewed. HRCT 10/13/22 - Diffuse interstitial thickening, no mosacisim, no GGO. Overall slightly increase in fibrotic changes since CT in 2021. LDCT 05/2023 - stable PFT 04/2023 FEV1/FVC 48%, FEV1 0.95 (stable) Unadjusted DLCO -2.7, likely underestimated PFTs 09/03/22 FVC: 2.2(-2.81) FEV1 0.93(-3.71) [worsened] FEV1/FVC 42% TLC 7.19(+0.46) RV/T%(+4.07) DLCO: 154.45(-2.37) Bronch 11/06/22 TBBx RUL and RLL: Alveolated lung tissue with no evidence of malignancy, granulomatous inflammation, vasculitis or viral changes. No histologic features of hypersensitivity pneumonitis seen. BAL: no evidence of malignancy, GMS negative for fungal. Alveolar macrophages, bronchial epithelial cells, and mixed inflammation. BAL: culture no growth, mycology no growth, AFB no growth No cell count Labs: Eos 0.17 IgE 46 Cardiac w/u: SCINTIGRAPHIC FINDINGS: 1. There is no significant patient motion noted on the raw images. Extracardiac findings include intestinal uptake. 2. The SPECT images demonstrate a normal left ventricular cavity with an estimated left ventricular end-diastolic volume of 135 mL (normal < 149 mL for males, < 102 mL for females). 3. There is no stress-induced transient ischemic dilation (TID) of the left ventricular cavity. 4. SPECT images: Attenuation-corrected and blq-uiyrmpehvzc-xufytnyfv SPECT images were evaluated. SPECT images demonstrate abnormal myocardial perfusion. There is a large size, severe intensity defect located in the basal to distal inferior and inferoseptal segments. The defect is fixed and does not normalize with attenuation-correction. The perfusion finding is best explained by infarct in the RCA territory. There is no myocardial ischemia. 5. The gated SPECT images demonstrate normal systolic function. Regional wall motion is abnormal with corresponding hypokinetic segments. 6. The calculated post-stress LVEF is 52%. Assessment / Plan: #Chronic hypoxic respiratory failure with airway-centered disease and mild fibrotic CT changes -At this point the etiology of his obstruction with decline in FEV1 and symptoms is unclear. His obstruction did predate the onset of his worsening symptoms after covid (and he had imaging changes prior to this as well). He does have a history of significant BD response suggestive of asthma or reactive airways component. Currently, my main concerns are chronic fibrosing hypersensitivity pneumonitis from his birds which or bronchiolitis. This is given the airway centered nature of his disease (with obstruction being the most prominent abnormality in his PFT) and fibrotic lung changes on CT being out of proportion to his DLCO, symptoms and oxygen requirement. The CT is not convincing for a progressive ILD with only mild worsening over the years or any other specific ILD (w/u neg to date). Additionally, he has agent orange exposure and other inhalational exposures while in [place] which could be causing his lung disease. He also has raynaud's which opens the possability of rheum related ILD but work- up has been negative. CRP was high x1 only. - Symptoms did not improve with Fasenra for about 4-5 months. - Echo showed EF 45-50%, Grade 1 diastolic dysfunction, MV steonsis - Quit smoking in 2007 Plan: - On high dose LABA/ICS and LAMA; recommend continued triple therapy - Given worsening symptoms, will repeat HRCT and full PFT. Will also repeat and expand serologic autoimmune work up today given possibility of bronchiolitis and repeat the HP panel. -Given leading ddx of HP or bronchiolitis, unfortunately he is unlikely to be a candidate for surgical lung biopsy, we will empirically treat with prolonged steroids. Prednisone 40mg daily ordered today plus PJP ppx (pt denied sulfa allergy). Discussed risks/benefits of therapy with patient especially with prolonged steroid use and he was agreeable. - Commpleted Pulm rehab RTC: 2 months Chart check: CT, pft Staffed with: Dr. Velasquez I spend 60 minutes reviewing history, performing an exam and evaluation, entering clinical information (EHR), interpreting results, counseling patient/family, reviewing XRs/CT-scans/MRIs/labs, ordering meds/tests/procedures, referring and communicating with consulting healthcare professionals, and care coordination. Patient was seen and discussed with Attending physician. Assessment and plan reflective of this discussion. /es/ JAYDON ALCALA FELLOW PHYSICIAN Signed: 04/27/2024 11:25 /es/ CARRIE VELASQUEZ Pulmonary/Critical Care Attending Cosigned: 04/28/2024 08:58 04/27/2024 ADDENDUM STATUS: COMPLETED Meds/treatment plan discussed w/ during appt. per M.D. & voiced understanding of any changes in meds/treatment plan. [place] dismissed from clinic by provider upon completion of visit. Appt. to be scheduled & appt. letter mailed to per MD order indicating modality of appt. (face to face/VVC/CVT/telephone). If provider not available or requires overbook,alert Ceramics Teacher & Pulmonary Provider for overbook approval. Future test results auto alerted to M.D. once completed for M.D. to review & notify of results. See M.D. note & M.D. orders for further information. - Given worsening symptoms, will repeat HRCT and full PFT. - Will also repeat and expand serologic autoimmune work up today given possibility of bronchiolitis and repeat the HP panel. - FLORI, CRP, MADI, Auto diff., PANEL 5, Rheumatoid Factor, anti-CCP RTC: 2 months /es/ Reina Lew RN Pulmonary Ceramics Teacher Signed: 04/27/2024 14:15 04/28/2024 ADDENDUM STATUS: COMPLETED I have seen and examined the patient with the auto specialty services manager in the clinic on 04/27/24. This note complements their note, level of billing reflects both. Agree with assessment and plan as noted above with any edits/additions detailed below. All relevant investigational data including labs and PFTs were reviewed and all relevant radiographic data (CXRs / CT scans) were visualized personally. Severe COPD, chronic hypoxic respiratory failure and ILD of unclear etiology despite extensive serologic workup and bronchoscopy with BAL and TBBx. As noted, he is not a candidate for surgical lung biopsy given severity of lung disease, other comorbidities and poor functional status. Concern for chronic HP with additional DDx as outlined. CT imaging from 2021 with mild JAQUELINE and there has been some progression since that time. Lower zones of lung sanches were clear on abdominal imaging from 2015. He needs to restart regular usage of LABA/LAMA/ICS which was discussed during visit; we have tried anti-IL5 therapy which did not provide any significant benefit. Start prednisone course as above along with bactrim ppx and he is already on vitamin d supplementation. He will rtc for close f/u in 6-8 weeks. /mona/ CARRIE VELASQUEZ Pulmonary/Critical Care Attending Signed: 04/28/2024 09:46 JAYDON ALCALA[facility]
--- OUTSIDE RECORDS SUMMARY | 2024-04-27 06:00 | XMS_ITS | Encounter Summary ---
Author Name [facility] [place] [facility] [place] Address [address] [place] [address] Care Team Providers Care Medicaid Business Analyst Name Role Phone IRASEMA GIRON Primary Care [...] PART A Jun 04, 2009 PART A [id number] [phone] [place] PATIENT MEDICARE (WNR) MEDICARE (M) PART A Jun 04, 2009 PART A [id number] GAYLE RY PATIENT MEDICARE (WNR) MEDICARE (M) PART A Jun 04, 2009 PART A [id number] [place] PATIENT MEDICARE (WNR) MEDICARE (M) PART A Jun 04, 2009 PART A [id number] [place] PATIENT MEDICARE (WNR) MEDICARE (M) PART A Jun 04, 2009 PART A [id number] [phone] [id number] [place] PATIENT Selected Encounter This section includes the information on record at [place] for the Encounter. Date/Time Encounter Type Encounter Description Reason Provider Source Apr 27, 2024 10:00 AM PT EDUCATION NOC INDIVID RESPIRATORY THERAPY ICD-10-CM J44.9 Chronic obstructive pulmonary disease, unspecified JOSE SANTANA Encounter Template Text not used by [place] Assessments - Encounter Diagnoses This section includes the primary and secondary diagnoses documented for the Encounter. Date/Time Primary/Secondary Diagnosis Diagnosis Name Provider Source Apr 27, 2024 11:52 AM PRIMARY Chronic obstructive pulmonary disease, unspecified [facility] Plan of Treatment: Future Appointments (+ 6 months) and Future Tests (+/- 45 days) The Plan of Treatment section includes future care activities for the patient [facility] This section includes future appointments and future orders which are active, pending or scheduled. Future Appointments This section includes appointments that were scheduled to occur 6 months from the date of the Encounter, up to a maximum of 20 appointments. The data comes from all [facility]. Appointment Date/Time Appointment Type Appointme nt Facility Name Apr 28, 2024 10:00 AM AMBULATORY - NONE [facility] May 17, 2024 01:00 PM AMBULATORY - MEDICINE [facility] May 24, 2024 10:00 AM AMBULATORY - MEDICINE [facility] May 24, 2024 10:30 AM AMBULATORY - NONE [facility] May 24, 2024 11:00 AM AMBULATORY - MEDICINE [facility] Jun 08, 2024 08:01 AM AMBULATORY - MEDICINE [facility] Aug 29, 2024 11:00 AM AMBULATORY - MEDICINE [facility] Sep 28, 2024 09:00 AM AMBULATORY - MEDICINE [facility] Active, Pending, and Scheduled Orders This section includes a listing of several types of active, pending, and scheduled orders, including clinic medications orders, diagnostic test orders, procedure orders and consult orders; where the start date of the order is 45 days before the date of the Encounter or 45 days after the date of theEncounter. The data comes from all [facility]. Test Date/Time Test Type Test Details Facility Name May 06, 2024 12:00 AM Laboratory - Chemistry Order LIPID PROFILE [id number] SP ONCE [facility] May 06, 2024 12:00 AM Laboratory - Chemistry Order CBC/PLT [id number] BLOOD SP ONCE [facility] May 06, 2024 12:00 AM Laboratory - Chemistry Order GLYCOHEMOGLOBIN [id number] BLOOD SP ONCE [facility] May 06, 2024 12:00 AM Laboratory - Chemistry Order PANEL 5 [id number] SP ONCE [facility] Lab Results: +/- 30 days of the [...] Type Comment May 24, 2024 10:05 AM [facility] N CBC/PLT BLOOD Specimen Type: BLOOD No comment entered. Ordering Provider: IRASEMA GIRON Report Released Date/Time: May 03, 2024 09:16 AM Reporting Lab: [address] [phone] Performing Lab: [address] [phone] WBC 8.4 10*3/uL 5.0-10.0 RBC 4.27 10*6/uL L 4.6-6.2 HGB 12.7 g/dL L 14.0-18.0 HCT 39.1 L 42.0-52.0 MCV 91.6 fL 80.0-94.0 MCH 29.7 pg 27.0-31.0 MCHC 32.5 g/dL 32.0-36.0 PLT 238 10*3/uL 150-450 MPV 9.2 fL 9.0-13.1 RDW 15.1 11.0-16.0 NRBC 0.0 0.0-0.0 Apr 27, 2024 11:12 AM [facility] ANTI-CCP (SRL) SERUM Specimen Type : SERUM No comment entered. Ordering Provider: JAYDON ALCALA Report Released Date/Time: Apr 27, 2024 10:20 AM Reporting Lab: [address] [phone] Performing Lab: [address] [address] ANTI-CCP (SRL) <0.5 0.5-2.9 Apr 27, 2024 11:12 AM [facility] FLORI SCREEN SERUM Specimen Type: SERUM No comment entered. Ordering Provider: JAYDON ALCALA Report Released Date/Time: Apr 27, 2024 10:20 AM Reporting Lab: [place] [id number] Performing Lab: [place] [id number] FLORI SCREEN Negative Negative Apr 27, 2024 11:12 AM [facility] RHEUMATOID FACTOR SERUM Specimen T ype: SERUM No comment entered. Ordering Provider: JAYDON ALCALA Report Released Date/Time: Apr 27, 2024 10:20 AM Reporting Lab: [place] [phone] Performing Lab: [place] [id number] RHEUMATOID FACTOR <8 NEGATIVE [IU]/mL <8 NEGATIVE Apr 27, 2024 11:12 AM [facility] ANTI-NUCLEAR Ab SERUM Specimen Typ e: SERUM No comment entered. Ordering Provider: JAYDON ALCALA Report Released Date/Time: Apr 27, 2024 10:20 AM Reporting Lab: [address] [phone] Performing Lab: [place] [id number] ANTI-NUCLEAR Ab <1:80 <1:80 Apr 27, 2024 11:12 AM [facility] eGFR + CREATININE PLASMA Specimen Type: PLASM [...] Mar 28, 2024 06:29 PM Reporting Lab: [address] [phone] Performing Lab: [address] [phone] CREATININE 0.56 mg/dL L 0.72-1.25 eGFR (CKD-EPI) >90 Apr 27, 2024 11:12 AM [facility] CRP (for acute inflammation) PLASMA Specimen T [...] Apr 27, 2024 10:20 AM Reporting Lab: [address] [phone] Performing Lab: [address] [phone] CRP (for acute inflammation) 21.6 mg/L H 0 .0-5.0 Apr 27, 2024 11:12 AM [facility] CBC/PLT BLOOD Specimen Type: BLOOD No comment entered. Ordering Provider: GIFTY GREGORY Report Released Date/Time: Mar 28, 2024 06:29 PM Reporting Lab: [address] [address] Performing Lab: [address] [phone] WBC 5.0 10*3/uL 5.0-10.0 RBC 4.37 10*6/uL L 4.6-6.2 HGB 12.7 g/dL L 14.0-18.0 HCT 39.5 L 42.0-52.0 MCV 90.4 fL 80.0-94.0 MCH 29.1 pg 27.0-31.0 MCHC 32.2 g/dL 32.0-36.0 PLT 219 10*3/uL 150-450 MPV 9.0 fL 9.0-13.1 RDW 12.8 11.0-16.0 NRBC 0.0 0.0-0.0 Apr 27, 2024 11:12 AM [facility] AUTOMATED DIFF BLOOD Specimen Type : BLOOD No comment entered. Ordering Provider: JAYDON ALCALA Report Released Date/Time: Apr 27, 2024 10:20 AM Reporting Lab: [address] [phone] Performing Lab: [address] [address] A-LYMPH % 22.2 L 24.0-44.0 A-MONO % 9.4 H 0.1-6.0 A-GRAN % 67.6 42.0-75.0 A-LYMPH # 1.11 10*3/uL L 1.20-3.40 A-MONO # 0.47 10*3/uL 0.00-0.60 A-GRAN # 3.37 10*3/uL 1.40-6.50 A-BASO % 0.6 0.0-3.0 A-BASO # 0.03 10*3/uL 0.00-0.20 A-EOS % 0.0 0.0-10.0 A-EOS # 0.00 10*3/uL 0.00-0.70 A-IG % 0.2 0.0-0.5 A-IG # 0.01 10*3/uL 0.00-0.06 Apr 27, 2024 11:12 AM [facility] PANEL 5 PLASMA Specimen Type: PLASM A [...] Apr 27, 2024 10:20 AM Reporting Lab: [address] [phone] Performing Lab: [address] [address] CREATININE 0.56 mg/dL L 0.72-1.25 UREA NITROGEN [...] 03, 2024 01:15 PM VA-TOBACCO NEVER USED [facility] Tobacco Use History This section includes a history of the smoking, or tobacco-related health factors, that were collected on or before the date of the Encounter. The data comes from the [place] facility where the Encounter took place. Date/Time Smoking Status/Tobacco Use Comment F acility Jan 21, 2016 04:53 PM NON-TOBACCO USE INPATIENT [facility] Jan 13, 2016 06:51 AM V9 QUIT TOBACCO >7 YEARS AGO [facility] Advance Directives: All historical and current Section [...] CHEST HIGH RESO LUTION CT: MARIZA JAY [id number] -1950 M Exm Date: APR 27, 2024@10:28 Req Phys: JAYDON ALCALA Pat Loc: [facility] (Req'g Loc) Img Loc: CT SCAN Service: Unknown [place] [id number] (Case [id number] COMPLETE)CT CHEST HIGH RESOLUTION CT (CT Detailed) CPT:98729 Reason for Study: ILD Clinical History: Suspected Interstitial Lung Disease Report Status: Verified Date Reported: MAY 02, 2024 Date Verified: MAY 02, 2024 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 Date/Time Encounter Note(s) Provider Source Apr 27, 2024 11:41 AM RESPIRATORY THERAP Y NOTE: LOCAL TITLE: RESPIRATORY CARE TREATMENT NOTE STANDARD TITLE: RESPIRATORY THERAPY NOTE DATE OF NOTE: APR 27, 2024@11:41 ENTRY DATE: APR 27, 2024@11:41:25 AUTHOR: JOSE SANTANA COSIGNER: URGENCY: STATUS: COMPLETED given a [place] oxygen tank which was provided by [employer]. He left his oxygen in the car and just needed the tank for his appointments in lab and xray while he is in thSevere chronic obstructive pulmonary disease (SCT [id number]) - Chronic obstructive pulmonary disease, unspecified (ICD-10-CM J44.9) (Primary)e facility. He will tank home as an extra. /mona/ JOSE SANTANA Signed: 04/27/2024 11:52 JOSE SANTANA-ALISSOND [facility]
--- OUTSIDE RECORDS SUMMARY | 2024-05-17 09:00 | XMS_ITS | Encounter Summary ---
Author Name [facility] [place] [facility] [place] Address [address] [place] [address] Care Team Providers Care Clerical Methods Analyst Name Role Phone IRASEMA GIRON Primary [...] PART A Jun 04, 2009 PART A [id number] [place] PATIENT MEDICARE (WNR) MEDICARE (M) PART A Jun 04, 2009 PART A [id number] [place] PATIENT MEDICARE (WNR) MEDICARE (M) PART A Jun 04, 2009 PART A [id number] [place] PATIENT MEDICARE (WNR) MEDICARE (M) PART A Jun 04, 2009 PART A [id number] [place] PATIENT MEDICARE (WNR) MEDICARE (M) PART A Jun 04, 2009 PART A [id number] [facility] PATIENT Selected Encounter This section includes the information on record at [place] for the Encounter. Date/Time Encounter Type Encounter Description Reason Provider Source May 17, 2024 01:00 PM COMPRE OPH EXAM EST PT 1/> OPTOMETRY ICD-10-CM H52.4 Presbyopia KEVIN LYN Brian Encounter Template Text not used by [facility] Assessments - Encounter Diagnoses This section includes the primary and secondary diagnoses documented for the Encounter. Date/Time Primary/Secondary Diagnosis Diagnosis Name Provider Source May 17, 2024 02:48 PM PRIMARY Presbyopia JERMAINE GEORGE IS A [facility] May 17, 2024 02:48 PM SECONDARY Age-related nuclear cataract, bilateral DORIS,ALEX IS A [facility] May 17, 2024 02:48 PM SECONDARY Dry eye syndrome of bilateral lacrimal glands JERMAINE GEORGE IS A [facility] Plan of Treatment: Future Appointments (+ 6 months) and Future Tests (+/- 45 days) The Plan of Treatment section includes future care activities for the patient from all [place] [facility]. This section includes future appointments and future orders which are active, pending or scheduled. Future Appointments This section includes appointments that were scheduled to occur 6 months from the date of the Encounter, up to a maximum of 20 appointments. The data comes from all [place] treatment [facility]. Appointment Date/Time Appointment Type Appointme nt Facility Name May 24, 2024 10:00 AM AMBULATORY - MEDICINE [facility] May 24, 2024 10:30 AM AMBULATORY - NONE [place] [facility] May 24, 2024 11:00 AM AMBULATORY - MEDICINE [facility] Jun 08, 2024 08:01 AM AMBULATORY - MEDICINE [facility] Aug 29, 2024 11:00 AM AMBULATORY - MEDICINE [facility] Sep 28, 2024 09:00 AM AMBULATORY - MEDICINE [facility] Active, Pending, and Scheduled Orders This section includes a listing of several types of active, pending, and scheduled orders, including clinic medications orders, diagnostic test orders, procedure orders and consult orders; where the start date of the order is 45 days before the date of the Encounter or 45 days after the date of theEncounter. The data comes from all [facility]. Test Date/Time Test Type Test Details Facility Name May 06, 2024 12:00 AM Laboratory - Chemistry Order LIPID PROFILE [id number] SP ONCE [facility] May 06, 2024 12:00 AM Laboratory - Chemistry Order GLYCOHEMOGLOBIN [id number] BLOOD SP ONCE [facility] May 06, 2024 12:00 AM Laboratory - Chemistry Order CBC/PLT [id number] BLOOD SP ONCE [facility] May 06, 2024 12:00 AM Laboratory - Chemistry Order PANEL 5 [id number] SP ONCE [facility] Lab Results: +/- 30 days of [...] Type Comment May 24, 2024 10:05 AM [facility] N CBC/PLT BLOOD Specimen Type: BLOOD No comment entered. Ordering Provider: IRASEMA GIRON Report Released Date/Time: May 03, 2024 09:16 AM Reporting Lab: [address] [address] Performing Lab: [address] [address] WBC 8.4 10*3/uL 5.0-10.0 RBC 4.27 10*6/uL L 4.6-6.2 HGB 12.7 g/dL L 14.0-18.0 HCT 39.1 L 42.0-52.0 MCV 91.6 fL 80.0-94.0 MCH 29.7 pg 27.0-31.0 MCHC 32.5 g/dL 32.0-36.0 PLT 238 10*3/uL 150-450 MPV 9.2 fL 9.0-13.1 RDW 15.1 11.0-16.0 NRBC 0.0 0.0-0.0 Apr 27, 2024 11:12 AM [facility] ANTI-CCP (SRL) SERUM Specimen Type : SERUM No comment entered. Ordering Provider: JAYDON ALCALA Report Released Date/Time: Apr 27, 2024 10:20 AM Reporting Lab: [address] [address] Performing Lab: [address] [address] ANTI-CCP (SRL) <0.5 0.5-2.9 Apr 27, 2024 11:12 AM [facility] FLORI SCREEN SERUM Specimen Type: SERUM No comment entered. Ordering Provider: JAYDON ALCALA Report Released Date/Time: Apr 27, 2024 10:20 AM Reporting Lab: [address] [address] Performing Lab: [address] [address] FLORI SCREEN Negative Negative Apr 27, 2024 11:12 AM [facility] RHEUMATOID FACTOR SERUM Specimen T ype: SERUM No comment entered. Ordering Provider: JAYDON ALCALA Report Released Date/Time: Apr 27, 2024 10:20 AM Reporting Lab: [address] [address] Performing Lab: [address] [address] RHEUMATOID FACTOR <8 NEGATIVE [IU]/mL <8 NEGATIVE Apr 27, 2024 11:12 AM [facility] ANTI-NUCLEAR Ab SERUM Specimen Typ e: SERUM No comment entered. Ordering Provider: JAYDON ALCALA Report Released Date/Time: Apr 27, 2024 10:20 AM Reporting Lab: [address] [address] Performing Lab: [address] [address] ANTI-NUCLEAR Ab <1:80 <1:80 Apr 27, 2024 11:12 AM [facility] eGFR + CREATININE PLASMA Specimen Type: PLASM [...] Mar 28, 2024 06:29 PM Reporting Lab: [address] [address] Performing Lab: [address] [address] CREATININE 0.56 mg/dL L 0.72-1.25 eGFR (CKD-EPI) >90 Apr 27, 2024 11:12 AM [facility] CBC/PLT BLOOD Specimen Type: BLOOD No comment entered. Ordering Provider: GIFTY GREGORY Report Released Date/Time: Mar 28, 2024 06:29 PM Reporting Lab: [address] [address] Performing Lab: [facility] [address] [facility] [address] WBC 5.0 10*3/uL 5.0-10.0 RBC 4.37 10*6/uL L 4.6-6.2 HGB 12.7 g/dL L 14.0-18.0 HCT 39.5 L 42.0-52.0 MCV 90.4 fL 80.0-94.0 MCH 29.1 pg 27.0-31.0 MCHC 32.2 g/dL 32.0-36.0 PLT 219 10*3/uL 150-450 MPV 9.0 fL 9.0-13.1 RDW 12.8 11.0-16.0 NRBC 0.0 0.0-0.0 Apr 27, 2024 11:12 AM [facility] CRP (for acute inflammation) PLASMA Specimen T [...] Apr 27, 2024 10:20 AM Reporting Lab: [address] [address] Performing Lab: [address] [address] CRP (for acute inflammation) 21.6 mg/L H 0 .0-5.0 Apr 27, 2024 11:12 AM [facility] AUTOMATED DIFF BLOOD Specimen Type : BLOOD No comment entered. Ordering Provider: JAYDNO ALCALA Report Released Date/Time: Apr 27, 2024 10:20 AM Reporting Lab: [address] [address] Performing Lab: [address] [address] A-LYMPH % 22.2 L 24.0-44.0 A-MONO % 9.4 H 0.1-6.0 A-GRAN % 67.6 42.0-75.0 A-LYMPH # 1.11 10*3/uL L 1.20-3.40 A-MONO # 0.47 10*3/uL 0.00-0.60 A-GRAN # 3.37 10*3/uL 1.40-6.50 A-BASO % 0.6 0.0-3.0 A-BASO # 0.03 10*3/uL 0.00-0.20 A-EOS % 0.0 0.0-10.0 A-EOS # 0.00 10*3/uL 0.00-0.70 A-IG % 0.2 0.0-0.5 A-IG # 0.01 10*3/uL 0.00-0.06 Apr 27, 2024 11:12 AM [facility] PANEL 5 PLASMA Specimen Type: PLASM A [...] Apr 27, 2024 10:20 AM Reporting Lab: [address] [address] Performing Lab: [address] [address] CREATININE 0.56 mg/dL L 0.72-1.25 UREA NITROGEN [...] and tobacco- related health factors from the [place] facility where the Encounter took place. Current Smoking Status This section includes the most current smoking, or tobacco-related health factor, from the [place] facility where the Encounter took place. Date/Time Current Smoking Status Comment Zayda kwok Mar 18, 2023 10:00 AM VA-TOBACCO FORMER USER [facility] Tobacco Use History This section includes a history of the smoking, or tobacco-related health factors, that were collected on or before the date of the Encounter. The data comes from the [place] facility where the Encounter took place. Date/Time Smoking Status/Tobacco Use Comment F mike Mar 18, 2023 10:00 AM VA-TOBACCO QUIT 5 TO < 15 YRS [facility] Apr 30, 2022 11:00 AM VA-TOBACCO FORMER USER [facility] Apr 30, 2022 11:00 AM VA-TOBACCO QUIT 15 YRS OR MORE [facility] Apr 24, 2021 09:30 AM VA-TOBACCO FORMER USER [facility] Apr 24, 2021 09:30 AM VA-TOBACCO QUIT 5 TO < 15 YRS [facility] Feb 14, 2021 10:00 AM VA-TOBACCO FORMER USER [facility] Feb 14, 2021 10:00 AM VA-TOBACCO QUIT 15 YRS OR MORE [facility] Apr 20, 2018 11:36 AM VA-TOBACCO FORMER USER [facility] Apr 20, 2018 11:36 AM VA-TOBACCO QUIT 15 YRS OR MORE [facility] Feb 09, 2017 10:00 AM V9 QUIT TOBACCO >7 YEARS AGO [facility] Feb 11, 2015 10:54 AM V9 QUIT TOBACCO >7 YEARS AGO [facility] Mar 16, 2014 08:35 AM V9 QUIT TOBACCO >1 2 MO & <7 YRS AGO [facility] Mar 16, 2014 08:35 AM V9 TOBACCO OFFERED [facility] Advance Directives: All historical and current Section Date Range: From patient's date of to the date document was created. This section includes ALL of a patient's completed or amended [place] Advance and Rescinded Directives. The entries below indicate that a directive exists for the patient, but an actual copy is not included with this document. The data comes from all [place] facilities. Date Advance Directives Provider Source Apr [...] the Encounter. The data comes from all [place] treatment facilities. Date/Time Radiology Report Provider Source Apr 27, 2024 10:[address] CHEST HIGH RESO LUTION CT: MARIZA JAY RAHEL [id number] -[id number] M Exm Date: APR 27, 2024@10:28 Req Phys: JAYDON ALCALA Loc: [facility] (Req'g Loc) Img Loc: CT SCAN Service: [place] [address] (Case [id number] COMPLETE)CT CHEST HIGH RESOLUTION CT (CT Detailed) CPT:02265 Reason for Study: ILD Clinical History: Suspected Interstitial Lung Disease Report Status: Verified Date Reported: MAY 02, 2024 Date Verified: MAY 02, 2024 Gate Guard E-Sig: Report: CT chest high resolution Inspiratory [...] Staff: DHARA WYMAN, Staff Radiologist Verified by neuropsychology division chief for DHARA WYMAN /MRS WYMANDHARA Petesren YEIMY-D [facility] Encounter Notes: All associated encounter notes This section contains the clinical notes associated to the Encounter. Date/Time Encounter Note(s) Provider Source May 17, 2024 01:33 PM OPTOMETRY RESIDENT NOTE: LOCAL TITLE: OPTOMETRY RESIDENT NOTE STANDARD TITLE: OPTOMETRY RESIDENT NOTE DATE OF NOTE: MAY 17, 2024@13:33 ENTRY DATE: MAY 17, 2024@13:33:09 AUTHOR: GARRETT GEORGE COSIGNER: KEVIN LYN URGENCY: STATUS: COMPLETED OPTOMETRY RESIDENT NOTE Has ADDENDA Type of exam: Comprehensive Chief complaint/Reason for visit: 74YO WHITE patient presents for CEE to monitor for cataracts OU. Pt reports increased blurry vision at dist>near with habitual SRx. Pt reports occasional dry eye symptoms with PRN use of ATs that provide relief. Pt denies any flashes, floaters or eye pain. Pt reports he had a fall within last week where he hit his head. Pt states he reported to the closest outside ER and all results came back normal per pt, thinks the scan he had was a head CT to rule out any immediate issues. Pt states he follows closely with his PCP and that he'll send in records. No visual symptoms that he's noticed. Ocular History: RAHEL: 08/28/19 (-) Eye Injury: (-) Eye Surgery/Laser Tx: (-) Eye Infection: (+) Other: incipient cataracts, h/o subconj heme (-)History of Cancer (-)History of Known CVA (+)Use of anticoagulant Type: Apixaban 5mg Ocular Medications: ATs PRN OU (-) History of allergies to ocular medications Family history: None Smoking history: (+) Previous smoker Duration, packs per day: When did pt quit smokin Additional Risk Factors for Macular Degeneration: (+) Patient is over age 60 (-) Obesity (Centers for Disease Control and Prevention definition: BMI of 30 or more) (+) Pt has heritage (-) Pt is a Female Additional Glaucoma Risk Hx: (-) over age 40 (+) Pt is over age 60 (-) Pt has [place] heritage Medical history: Active problems - Computerized Problem List is the source for the followin. Exposure to Potentially Hazardous Substance ([facility] [id number]) AO 2. Heart failure 3. Vitamin D deficiency 4. Old myocardial infarction 5. History of cardiac arrest 6. Sensorineural hearing loss, bilateral 7. Mixed hyperlipidemia 8. 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 Peripheral arterial occlusive disease 10. Renal artery stenosis 11. Moderate chronic obstructive pulmonary disease LDCT done 05/2023 and repeat in 05/2024 12. Anxiety (SNOMED CT 79313613) 13. Depression (SNOMED CT 86372633) 14. Benign essential hypertension (SNOMED CT 9360339) 15. Carotid artery stenosis 16. Gastroesophageal reflux disease 17. Posttraumatic stress disorder 18. Tinnitus 19. Hearing loss 20. Spinal stenosis in cervical region 21. 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 (SNOMED CT 102172737) Allergies: LISINOPRIL Medications: Active Outpatient Medications (including Supplies): Active Outpatient Medications Status 1) ALBUTEROL 3/IPRATROP 0.5MG/3ML INHL 3ML USE 1 AMP ACTIVE (3ML) IN NEBULIZER FOUR TIMES A DAY FOR BREATHING 2) ALBUTEROL 90MCG (CFC-F) 200D ORAL INHL INHALE 2 PUFFS ACTIVE BY INHALATION EVERY 4 HOURS NEEDED FOR WHEEZING, COUGHING OR SHORTNESS OF BREATH 3) AMLODIPINE BESYLATE 5MG TAB TAKE ONE TABLET BY MOUTH ACTIVE DAILY FOR HIGH BLOOD PRESSURE -DO NOT DRINK GRAPEFRUIT JUICE WHILE ON THIS DRUG 4) APIXABAN 5MG TAB TAKE ONE TABLET BY MOUTH TWICE A DAY ACTIVE TO THIN BLOOD. CALL ANTICOAGULATION CLINIC [phone] WITH QUESTIONS OR CONCERNS 5) ATORVASTATIN CALCIUM 80MG TAB TAKE ONE [...] MOUTH AND SPIT AFTER EACH USE 10) NITROGLYCERIN 0.4MG SL TAB BTL 25 DISSOLVE ONE TABLET ACTIVE UNDER THE TONGUE EVERY 5 MINUTES UP TO 3 DOSES FOR CHEST PAIN -IF NO RELIEF CALL 911 11) PREDNISONE 20MG TAB TAKE TWO TABLETS BY MOUTH DAILY ACTIVE FOR LUNGS 12) SULFAMETHOXAZOLE 800/TRIMETH 160MG TAB TAKE 1 TABLET ACTIVE BY MOUTH DAILY FOR PREVENTION OF INFECTION 13) TIOTROPIUM 2.5MCG/ACTUAT 60D ORAL INHL INHALE 2 ACTIVE INHALATIONS BY MOUTH DAILY FOR BREATHING Active Non-VA Medications Status 1) Non-VA NO KNOWN NON-VA MEDS PT ASKED ABOUT NON-VA ACTIVE MEDS MISCELLANEOUS DIRECTED 14 Total Medications Medication list reviewed by: Mona Medication list is accurate per patient/doctor review Printed copy of medication list provided to patient and/or significant other and reviewed: Yes Explained to patient and/or significant other the importance of keeping providers updated on medication changes and to carrying an updated list of medication at all times in case of an emergency situation. Yes Medication changes reviewed, patient/significant other verbalized understanding, provided updated list. VA: cc 20/50 PH 20/30 20/100 PH 20/30 Habitual Rx: OD: +1.50-0.06i391 OS: +1.75-0.91d628 Add: +2.50 EOMs: Full and unrestricted OU, No Diplopia Confrontation VF: Full to finger count OU Pupils: PERRL, no APD Refraction: OD: +1.00 -0.75 x065 20/20 OS: +1.75 -0.50 x075 20/20-2 Add: +2.50 Final RX: Same as above SLIT LAMP EXAM: Lids/lashes: scalloped lid margins OU Conj/sclera: Clear/white OU Cornea: Clear OU Anterior chamber: D/q OU Iris/pupil: Flat/round OU Informed consent obtained prior to instillation of all diagnostic pharmaceutical agents. IOPs (Goldmann applanation): igt Altafluor Benox OD, OS OD: 12 OS: 12 Time: 1347 Angles: 4x4 N/T VH OU OCULAR HEALTH: igt 1% Tropicacyl OD, igt 1% Tropicacyl OS, igt 2.5% Phenylephrine OD, igt 2.5% Phenylephrine OS Time: 1347 Lenses used for viewinD, 20D LENS: OD: 1+ NS OS: 1+ NS C/D: H/ V OD: 0.35/0.35 NRRI, No Hemes, No Pallor, No Edema OS: 0.30/0.30 NRRI, No Hemes, No Pallor, No Edema Size: average MACULA: OD: Flat, even pigment OS: Flat, even pigment VESSELS: OD: 2/3 AV OS: 2/3 AV POSTERIOR POLE: OD: Clear OS: Clear VITREOUS: OD: Clear, (-)chilo's sign OS: Clear, (-)chilo's sign PERIPHERY: OD: No holes, tears or breaks OS: No holes, tears or breaks A: 1. Presbyopia OU - BCVA 20/20 OD, 20/20-2 OS 2. Dry eye syndrome OU 3. Age related nuclear cataracts OU 4. Personal report of fall P: 1. Updated SRx released for SVRO, non-VA SRx released for PALS per pt request. Monitor. 2. Patient educated on the use of OTC artificial tears 3-4 times per day OU. Patient to RTC should symptoms worsen or not improve with supportive intervention. 3. Patient educated about cataracts, their effect on vision and the typical time for extraction is when they begin to affect the patient's activities of daily living. Patient was advised on the typical gradual course of cataracts and instructed to RTC if vision changes significantly before next F/U. 4. Pt sought care at local ED and has no residual symptoms. Normal eye exam. Advised reporting back to ED with any new symptoms. The [place]/caregiver voiced understanding of topics covered/discussed in today's visit. Next visit: 12 months with opt/res 1 x CEE /mona/ KEVIN LYN Chief of Optometry Signed: 05/17/2024 17:03 for GARRETT GEORGE Optometry Resident /mona/ KEVIN LYN Chief of Optometry Cosigned: 05/17/2024 17:03 05/17/2024 ADDENDUM STATUS: COMPLETED This service was performed in whole or in part by a resident at a [place] Medical Center or Clinic, supervised in accordance with [place] policy. I have discussed the patient with the examining resident. I agree with the clinical findings and the assessment and plan. /mona/ KEVIN LYN Chief of Optometry Signed: 05/17/2024 17:03 KEVIN LYN [facility]
--- OUTSIDE RECORDS SUMMARY | 2024-05-18 06:56 | XMS_ITS | Encounter Summary ---
Author Name [facility] [place] [facility] [place] Address [address] [place] [address] Care Team Providers Care Warehouse Attendant Name Role Phone IRASEMA GIRON Primary Care [...] PART A Jun 04, 2009 PART A [id number] [place] PATIENT MEDICARE (WNR) MEDICARE (M) PART A Jun 04, 2009 PART A [id number] [place] PATIENT MEDICARE (WNR) MEDICARE (M) PART A Jun 04, 2009 PART A [id number] [place] PATIENT MEDICARE (WNR) MEDICARE (M) PART A Jun 04, 2009 PART A [id number] [place] PATIENT MEDICARE (WNR) MEDICARE (M) PART A Jun 04, 2009 PART A [id number] [place] PATIENT Selected Encounter This section includes the information on record at [place] for the Encounter. Date/Time Encounter Type Encounter Description Reason Pro vider Source May 18, 2024 10:56 AM Outpatient Encounter ADMIN PAT ACTIVTIES (MASNONCT) IHE Encounter Template Text not used by [facility] Plan of Treatment: Future Appointments (+ 6 months) and Future Tests (+/- 45 days) The Plan of Treatment section includes future care activities for the patient from all [place] [facility]. This section includes future appointments and future orders which are active, pending or scheduled. Future Appointments This section includes appointments that were scheduled to occur 6 months from the date of the Encounter, up to a maximum of 20 appointments. The data comes from all [facility]. Appointment Date/Time Appointment Type Appointme nt Facility Name May 24, 2024 10:00 AM AMBULATORY - MEDICINE [facility] May 24, 2024 10:30 AM AMBULATORY - NONE [facility] May 24, 2024 11:00 AM AMBULATORY - MEDICINE [facility] Jun 08, 2024 08:01 AM AMBULATORY - MEDICINE [facility] Aug 29, 2024 11:00 AM [facility]ATORY - MEDICINE [facility] Sep 28, 2024 09:00 AM AMBULATORY - MEDICINE [facility] Active, Pending, and Scheduled Orders This section includes a listing of several types of active, pending, and scheduled orders, including clinic medications orders, diagnostic test orders, procedure orders and consult orders; where the start date of the order is 45 days before the date of the Encounter or 45 days after the date of theEncounter. The data comes from all [facility]. Test Date/Time Test Type Test Details Facility Name May 06, 2024 12:00 AM Laboratory - Chemistry Order LIPID PROFILE HEJ-DMDUB-SMPNXE SP ONCE [facility] May 06, 2024 12:00 AM Laboratory - Chemistry Order GLYCOHEMOGLOBIN ALY-VKOFIJFY-LTU BLOOD SP ONCE [facility] May 06, 2024 12:00 AM Laboratory - Chemistry Order CBC/PLT UNT-FDBVRSAL-HNA BLOOD SP ONCE [facility] May 06, 2024 12:00 AM Laboratory - Chemistry Order PANEL 5 KSY-OKFMM-ZOJGBY SP ONCE [facility] Lab Results: +/- 30 days of the encounter This section includes the Chemistry and Hematology Lab Results on record with [place] for the patient. Radiology Reports and Pathology Reports are provided separately, in subsequent sections. Lab Results This section contains the Chemistry/Hematology Results that were resulted 30 days before or 30 daysafter the date of the Encounter. Date/Time Source Result Type Result - Unit Interpretation Reference Range Specimen Type Comment May 24, 2024 10:05 AM [facility] N CBC/PLT BLOOD Specimen Type: BLOOD No comment entered. Ordering Provider: IRASEMA GIRON Report Released Date/Time: May 03, 2024 09:16 AM Reporting Lab: [address] [address] Performing Lab: [place] [phone] WBC 8.4 10*3/uL 5.0-10.0 RBC 4.27 10*6/uL L 4.6-6.2 HGB 12.7 g/dL L 14.0-18.0 HCT 39.1 L 42.0-52.0 MCV 91.6 fL 80.0-94.0 MCH 29.7 pg 27.0-31.0 MCHC 32.5 g/dL 32.0-36.0 PLT 238 10*3/uL 150-450 MPV 9.2 fL 9.0-13.1 RDW 15.1 11.0-16.0 NRBC 0.0 0.0-0.0 Apr 27, 2024 11:12 AM [facility] ANTI-CCP (SRL) SERUM Specimen Type : SERUM No comment entered. Ordering Provider: JAYDON ALCALA Report Released Date/Time: Apr 27, 2024 10:20 AM Reporting Lab: [address] [address] Performing Lab: [address] [address] ANTI-CCP (SRL) <0.5 0.5-2.9 Apr 27, 2024 11:12 AM [facility] FLORI SCREEN SERUM Specimen Type: SERUM No comment entered. Ordering Provider: JAYDON ALCALA Report Released Date/Time: Apr 27, 2024 10:20 AM Reporting Lab: [address] [address] Performing Lab: [address] [address] FLORI SCREEN Negative Negative Apr 27, 2024 11:12 AM [facility] RHEUMATOID FACTOR SERUM Specimen T ype: SERUM No comment entered. Ordering Provider: JAYDON ALCALA Report Released Date/Time: Apr 27, 2024 10:20 AM Reporting Lab: [address] [address] Performing Lab: [address] [address] RHEUMATOID FACTOR <8 NEGATIVE [IU]/mL <8 NEGATIVE Apr 27, 2024 11:12 AM [facility] ANTI-NUCLEAR Ab SERUM Specimen Typ e: SERUM No comment entered. Ordering Provider: JAYDON ALCALA Report Released Date/Time: Apr 27, 2024 10:20 AM Reporting Lab: [address] [address] Performing Lab: [address] [address] ANTI-NUCLEAR Ab <1:80 <1:80 Apr 27, 2024 11:12 AM [facility] eGFR + CREATININE PLASMA Specimen Type: PLASM [...] Mar 28, 2024 06:29 PM Reporting Lab: [address] [address] Performing Lab: [address] [address] CREATININE 0.56 mg/dL L 0.72-1.25 eGFR (CKD-EPI) >90 Apr 27, 2024 11:12 AM [facility] CBC/PLT BLOOD Specimen Type: BLOOD No comment entered. Ordering Provider: GIFTY GREGORY Report Released Date/Time: Mar 28, 2024 06:29 PM Reporting Lab: [address] [address] Performing Lab: [address] [address] WBC 5.0 10*3/uL 5.0-10.0 RBC 4.37 10*6/uL L 4.6-6.2 HGB 12.7 g/dL L 14.0-18.0 HCT 39.5 L 42.0-52.0 MCV 90.4 fL 80.0-94.0 MCH 29.1 pg 27.0-31.0 MCHC 32.2 g/dL 32.0-36.0 PLT 219 10*3/uL 150-450 MPV 9.0 fL 9.0-13.1 RDW 12.8 11.0-16.0 NRBC 0.0 0.0-0.0 Apr 27, 2024 11:12 AM [facility] CRP (for acute inflammation) PLASMA [...] Apr 27, 2024 10:20 AM Reporting Lab: [address] [address] Performing Lab: [address] [address] CRP (for acute inflammation) 21.6 mg/L H 0 .0-5.0 Apr 27, 2024 11:12 AM [facility] AUTOMATED DIFF BLOOD Specimen Type : BLOOD No comment entered. Ordering Provider: JAYDON ALCALA Report Released Date/Time: Apr 27, 2024 10:20 AM Reporting Lab: [address] [address] Performing Lab: [address] [address] A-LYMPH % 22.2 L 24.0-44.0 A-MONO % 9.4 H 0.1-6.0 A-GRAN % 67.6 42.0-75.0 A-LYMPH # 1.11 10*3/uL L 1.20-3.40 A-MONO # 0.47 10*3/uL 0.00-0.60 A-GRAN # 3.37 10*3/uL 1.40-6.50 A-BASO % 0.6 0.0-3.0 A-BASO # 0.03 10*3/uL 0.00-0.20 A-EOS % 0.0 0.0-10.0 A-EOS # 0.00 10*3/uL 0.00-0.70 A-IG % 0.2 0.0-0.5 A-IG # 0.01 10*3/uL 0.00-0.06 Apr 27, 2024 11:12 AM [facility] PANEL 5 PLASMA Specimen Type: [...] Apr 27, 2024 10:20 AM Reporting Lab: [address] [address] Performing Lab: [address] [address] CREATININE 0.56 mg/dL L 0.72-1.25 UREA NITROGEN [...] and tobacco- related health factors from the [place] facility where the Encounter took place. Current Smoking Status This section includes the most current smoking, or tobacco-related health factor, from the [place] facility where the Encounter took place. Date/Time Current Smoking Status Comment Facil ity Apr 03, 2024 01:15 PM VA-TOBACCO NEVER USED [facility] Tobacco Use History This section includes a history of the smoking, or tobacco-related health factors, that were collected on or before the date of the Encounter. The data comes from the [place] facility where the Encounter took place. Date/Time Smoking Status/Tobacco Use Comment F acility Jan 21, 2016 04:53 PM NON-TOBACCO USE INPATIENT [facility] Jan 13, 2016 06:51 AM V9 QUIT TOBACCO >7 YEARS AGO [facility] Advance Directives: All historical and current Section Date Range: From patient's date of to the date document was created. This section includes ALL of a patient's completed or amended [place] Advance and Rescinded Directives. The entries below indicate that a directive exists for the patient, but an actual copy is not included with this document. The data comes from all [place] facilities. Date Advance Directives Provider Source Apr [...] the Encounter. The data comes from all [place] treatment facilities. Date/Time Radiology Report Provider Source Apr 27, 2024 10:[address] CHEST HIGH RESO LUTION CT: MARIZA JAY RAHEL [id number] -1950 M Exm Date: APR 27, 2024@10:28 Req Phys: JAYDON ALCALA Loc: [facility] F[facility] (Req'g Loc) Img Loc: CT SCAN Service: [place] [address] (Case [id number] COMPLETE)CT CHEST HIGH RESOLUTION CT (CT Detailed) CPT:65925 Reason for Study: ILD Clinical History: Suspected Interstitial Lung Disease Report Status: Verified Date Reported: MAY 02, 2024 Date Verified: MAY 02, 2024 Filter Cleaner E-Sig: Report: CT chest high resolution Inspiratory [...] Staff: DHARA WYMAN, Staff Radiologist Verified by clerk entry level for DHARA WYMAN / DH[facility] WYMAN[facility] Encounter Notes: All associated encounter notes This section contains the clinical notes associated to the Encounter. Date/Time Encounter Note(s) Provider Source May 15, 2024 08:30 AM NONVA NOTE: LOCAL TITLE: COMMUNITY CARE-GENE SELF PRESENTING CARE COORD PLAN STANDARD TITLE: NONVA NOTE DATE OF NOTE: MAY 15, 2024@08:30 ENTRY DATE: MAY 18, 2024@10:56:44 AUTHOR: CATINA SHAH COSIGNER: URGENCY: STATUS: COMPLETED COMMUNITY CARE-GENE SELF PRESENTING CARE COORD PLAN NOTE Has ADDENDA Emergency Notification Intake Date Presenting to the Facility: May Date of note has been modified to reflect Date of Service. Reason for modification: HOSPITAL NOTIFICATION DATE/TIME: 05/16/2024 0658 EST Method of Contact: Notified from ECR worklist Notification ID: [id number] [facility] Referral #: [facility] Name: Hospital: [facility] Address: City: [place] State: [place] Zip Code: Phone : [facility] Point of Contact: Name: Phone: Chief complaint: PASSED OUT, FELL AND HIT HEAD Primary Diagnosis: Disposition Discharged FROM ED Handoff Handoff to PACT/PCP [facility] Community Care was informed this was seen for emergent care. Records requested for upload and review: Pursuant to 38 CFR 17.4020(c)Authorized emergency treatments. Handoff to PACT/PCP for follow up/care coordination as deemed appropriate by the PACT/PCP. /es/ Catina Shah MSN, automation clerk Nurse Coordinator Signed: 05/18/2024 10:59 Receipt Acknowledged By: 05/18/2024 11:22 /es/ CYRUS Neumann, RN Pc Stamping Operator 05/18/2024 12:50 /es/ IRASEMA GIRON NURSE PRACTITIONER 05/18/2024 ADDENDUM STATUS: COMPLETED Episode of Care Complete Any questions regarding determination, claims, & billing may be made to the following: [facility] Telephone Number: [phone] ([phone]) POM (Payment Operations and Management) Claims Status Line: [facility] Provider Services Region 2: /mona/ Catina Shah MSN, automation clerk Nurse Coordinator Signed: 05/18/2024 11:00 CATINA SHAH-[facility]
--- OUTSIDE RECORDS SUMMARY | 2024-05-24 06:00 | XMS_ITS | Encounter Summary ---
Author Name [facility] [facility] [place] Address [address] [place] [address] Care Team Providers Care Home Theater Experience Expert Name Role Phone IRASEMA GIRON Primary Care [...] PART A Jun 04, 2009 PART A [id number] [place] PATIENT MEDICARE (WNR) MEDICARE (M) PART A Jun 04, 2009 PART A [id number] [place] PATIENT MEDICARE (WNR) MEDICARE (M) PART A Jun 04, 2009 PART A [id number] [place] PATIENT MEDICARE (WNR) MEDICARE (M) PART A Jun 04, 2009 PART A [id number] [place] PATIENT MEDICARE (WNR) MEDICARE (M) PART A Jun 04, 2009 PART A [id number] [place] PATIENT Selected Encounter This section includes the information on record at [place] for the Encounter. Date/Time Encounter Type Encounter Description Reason Provider Source May 24, 2024 10:00 AM MEASURE BLOOD OXYGEN LEVEL RESPIRATORY THERAPY ICD-10-CM J44.9 Chronic obstructive pulmonary disease, unspecified ADRIAFORTINO EDGARY Nicola Brian Encounter Template Text not used by [place] Assessments - Encounter Diagnoses This section includes the primary and secondary diagnoses documented for the Encounter. Date/Time Primary/Secondary Diagnosis Diagnosis Name Provider Source May 24, 2024 11:44 AM PRIMARY Chronic obstructive pulmonary disease, unspecified [facility] Plan of Treatment: Future Appointments (+ 6 months) and Future Tests (+/- 45 days) The Plan of Treatment section includes future care activities for the patient from all [place] [facility]. This section includes future appointments and future orders which are active, pending or scheduled. Future Appointments This section includes appointments that were scheduled to occur 6 months from the date of the Encounter, up to a maximum of 20 appointments. The data comes from all [facility]. Appointment Date/Time Appointment Type Appointme nt Facility Name Jun 08, 2024 08:01 AM AMBULATORY - MEDICINE [facility] Aug 29, 2024 11:00 AM AMBULATORY - MEDICINE [facility] Sep 28, 2024 09:00 AM AMBULATORY - MEDICINE [facility] November 20, 2024 02:30 PM AMBULATORY - MEDICINE [facility] November 20, 2024 03:30 PM AMBULATORY - MEDICINE [facility] [...] of theEncounter. The data comes from all [facility]. Test Date/Time Test Type Test Details Facility Name May 06, 2024 12:00 AM Laboratory - Chemistry Order GLYCOHEMOGLOBIN ELL-WXUYWULU-BJG BLOOD SP ONCE [facility] May 06, 2024 12:00 AM Laboratory - Chemistry Order CBC/PLT SDO-SNWTRPNH-OLQ BLOOD SP ONCE [facility] May 06, 2024 12:00 AM Laboratory - Chemistry Order PANEL 5 AYU-KUWFL-MZWRVF SP ONCE [facility] May 06, 2024 12:00 AM Laboratory - Chemistry Order LIPID PROFILE LCO-RYFRL-CPPJJC SP ONCE [facility] Lab Results: +/- 30 days of the [...] Comment May 24, 2024 10:05 AM [facility] N CBC/PLT BLOOD Specimen Type: BLOOD No comment entered. Ordering Provider: IRASEMA GIRON Report Released Date/Time: May 03, 2024 09:16 AM Reporting Lab: [address] [address] Performing Lab: [address] [address] WBC 8.4 10*3/uL 5.0-10.0 RBC 4.27 10*6/uL L 4.6-6.2 HGB 12.7 g/dL L 14.0-18.0 HCT 39.1 L 42.0-52.0 MCV 91.6 fL 80.0-94.0 MCH 29.7 pg 27.0-31.0 MCHC 32.5 g/dL 32.0-36.0 PLT 238 10*3/uL 150-450 MPV 9.2 fL 9.0-13.1 RDW 15.1 11.0-16.0 NRBC 0.0 0.0-0.0 Apr 27, 2024 11:12 AM [facility] ANTI-CCP (SRL) SERUM Specimen Type : SERUM No comment entered. Ordering Provider: JAYDON ALCALA Report Released Date/Time: Apr 27, 2024 10:20 AM Reporting Lab: [address] [address] Performing Lab: [address] [address] ANTI-CCP (SRL) <0.5 0.5-2.9 Apr 27, 2024 11:12 AM [facility] FLORI SCREEN SERUM Specimen Type: SERUM No comment entered. Ordering Provider: JAYDON ALCALA Report Released Date/Time: Apr 27, 2024 10:20 AM Reporting Lab: [address] [address] Performing Lab: [address] [address] FLORI SCREEN Negative Negative Apr 27, 2024 11:12 AM [facility] RHEUMATOID FACTOR SERUM Specimen T ype: SERUM No comment entered. Ordering Provider: JAYDON ALCALA Report Released Date/Time: Apr 27, 2024 10:20 AM Reporting Lab: [address] [address] Performing Lab: [address] [address] RHEUMATOID FACTOR <8 NEGATIVE [IU]/mL <8 NEGATIVE Apr 27, 2024 11:12 AM [facility] ANTI-NUCLEAR Ab SERUM Specimen Typ e: SERUM No comment entered. Ordering Provider: JAYDON ALCALA Report Released Date/Time: Apr 27, 2024 10:20 AM Reporting Lab: [address] [address] Performing Lab: [place] [phone] ANTI-NUCLEAR Ab <1:80 <1:80 Apr 27, 2024 11:12 AM [facility] eGFR + CREATININE PLASMA Specimen Type: [...] Mar 28, 2024 06:29 PM Reporting Lab: [address] [address] Performing Lab: [address] [address] CREATININE 0.56 mg/dL L 0.72-1.25 eGFR (CKD-EPI) >90 Apr 27, 2024 11:12 AM [facility] CBC/PLT BLOOD Specimen Type: BLOOD No comment entered. Ordering Provider: GIFTY GREGORY Report Released Date/Time: Mar 28, 2024 06:29 PM Reporting Lab: [address] [address] Performing Lab: [address] [address] WBC 5.0 10*3/uL 5.0-10.0 RBC 4.37 10*6/uL L 4.6-6.2 HGB 12.7 g/dL L 14.0-18.0 HCT 39.5 L 42.0-52.0 MCV 90.4 fL 80.0-94.0 MCH 29.1 pg 27.0-31.0 MCHC 32.2 g/dL 32.0-36.0 PLT 219 10*3/uL 150-450 MPV 9.0 fL 9.0-13.1 RDW 12.8 11.0-16.0 NRBC 0.0 0.0-0.0 Apr 27, 2024 11:12 AM [facility] CRP (for acute inflammation) PLASMA Specimen [...] Apr 27, 2024 10:20 AM Reporting Lab: [address] [address] Performing Lab: [place] [phone] CRP (for acute inflammation) 21.6 mg/L H 0 .0-5.0 Apr 27, 2024 11:12 AM [facility] AUTOMATED DIFF BLOOD Specimen Type : BLOOD No comment entered. Ordering Provider: JAYDON ALCALA Report Released Date/Time: Apr 27, 2024 10:20 AM Reporting Lab: [place] [phone] Performing Lab: [place] [phone] A-LYMPH % 22.2 L 24.0-44.0 A-MONO % 9.4 H 0.1-6.0 A-GRAN % 67.6 42.0-75.0 A-LYMPH # 1.11 10*3/uL L 1.20-3.40 A-MONO # 0.47 10*3/uL 0.00-0.60 A-GRAN # 3.37 10*3/uL 1.40-6.50 A-BASO % 0.6 0.0-3.0 A-BASO # 0.03 10*3/uL 0.00-0.20 A-EOS % 0.0 0.0-10.0 A-EOS # 0.00 10*3/uL 0.00-0.70 A-IG % 0.2 0.0-0.5 A-IG # 0.01 10*3/uL 0.00-0.06 Apr 27, 2024 11:12 AM [facility] PANEL 5 PLASMA Specimen Type: PLASM [...] Apr 27, 2024 10:20 AM Reporting Lab: [address] [address] Performing Lab: [address] [address] CREATININE 0.56 mg/dL L 0.72-1.25 UREA NITROGEN [...] and tobacco- related health factors from the [place] facility where the Encounter took place. Current Smoking Status This section includes the most current smoking, or tobacco-related health factor, from the [place] facility where the Encounter took place. Date/Time Current Smoking Status Comment Facil ity Apr 03, 2024 01:15 PM VA-TOBACCO NEVER USED [facility] Tobacco Use History This section includes a history of the smoking, or tobacco-related health factors, that were collected on or before the date of the Encounter. The data comes from the [place] facility where the Encounter took place. Date/Time Smoking Status/Tobacco Use Comment F acility Jan 21, 2016 04:53 PM NON-TOBACCO USE INPATIENT [facility] Jan 13, 2016 06:51 AM V9 QUIT TOBACCO >7 YEARS AGO [facility] Advance Directives: All historical and current Section Date Range: From patient's date of to the date document was created. This section includes ALL of a patient's completed or amended [place] Advance and Rescinded Directives. The entries below indicate that a directive exists for the patient, but an actual copy is not included with this document. The data comes from all [place] facilities. Date Advance Directives Provider Source Apr [...] the Encounter. The data comes from all [place] treatment facilities. Date/Time Radiology Report Provider Source Apr 27, 2024 10:[address] CHEST HIGH RESO LUTION CT: MARIZA JAY [id number] -1950 M Exm Date: APR 27, 2024@10:28 Req Phys: ALISONGIOSanjuanaJAYDON Loc: [facility] (Req'g Loc) Img Loc: CT SCAN Service: Unknown [place] [id number] (Case [id number] COMPLETE)CT CHEST HIGH RESOLUTION CT (CT Detailed) CPT:74070 Reason for Study: ILD Clinical History: Suspected Interstitial Lung Disease Report Status: Verified Date Reported: MAY 02, 2024 Date Verified: MAY 02, 2024 Kennel Manager E-Sig: Report: CT chest high resolution Inspiratory [...] Staff: DHARA WYMAN, Staff Radiologist Verified by real estate firm manager for DHARA WYMAN /DHARA SHOOK YEIMY-D [facility] Encounter Notes: All associated encounter notes This section contains the clinical notes associated to the Encounter. Date/Time Encounter Note(s) Provider Source May 24, 2024 11:39 AM PULMONARY HOME HEA LTH CONSULT: LOCAL TITLE: HOME OXYGEN CONSULT RESPONSE STANDARD TITLE: PULMONARY HOME HEALTH CONSULT DATE OF NOTE: MAY 24, 2024@11:39 ENTRY DATE: MAY 24, 2024@11:39:51 AUTHOR: MIKKI COVINGTON COSIGNER: WOLF BENAVIDEZ URGENCY: STATUS: COMPLETED Diagnosis: COPD Estimated length of need (# of months)-(99 = lifetime): 1 YR SMOKING HISTORY: Current Smoker - No Patient provided verbal and written information related to: Yes - Hazards associated with smoking and oxygen Yes - Oxygen safety concerns and issues Yes - Contact info, [place] Home Oxygen Program and Home Oxygen Vendor (Contact numbers provided) Yes - Patient or surrogate/guardian viewed Home Oxygen Safety video. Yes - Patient or surrogate/guardian signed Home Oxygen Safety IMED consent form. RESULTS OF PULSE OXIMETRY OR ARTERIAL BLOOD GASES Room Air at Rest: 92% Room Air with Exertion: 88% Distance:300FT Time: Prescribed liter flow: 2LPM Other: Physician/Provider Performing Test: MIKKI COVINGTON Title: TICKET COLLECTOR OR USHER-RPFT PRESCRIPTION FOR HOME OXYGEN LPM Continuous: LPM During Exertion: 2 LPM @ Night: LPM PRN: Level of activity: PRIMARY DELIVERY SYSTEM Compressed Gas, Concentrator ADDITIONAL ITEMS Tank Size E, M6 Quantity per Month 15 Pulse dose conserver, Nasal Cannula, Oxysafe Valve, Cart , Shoulder bag Vendor satisfaction: Yes Cleans filter weekly: Delivery Location: Home Requires recertification of prescription and follow-up appointment WITHIN 12 months Date of last visit: 05/24/24 Expiration Date: 06/03/25 Respiratory Therapist Assessment: Annual, To include pulse oximetry and vitals /mona/ MIKKI COVINGTON Registered Pulmonary Function Tech Signed: 05/24/2024 11:44 /mona/ WOLF BENAVIDEZ M.D. ATTENDING PHYSICIAN Cosigned: 05/25/2024 09:26 MIKKI COVINGTON-ALL [facility]
--- OUTSIDE RECORDS SUMMARY | 2024-06-08 04:00 | XMS_ITS | Encounter Summary ---
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 Date/Time Encounter Type Encounter Description Reason Provider Source Jun 08, 2024 08:00 AM Outpatient Encounter PULMONARY/CHEST [facility] Encounter Template Text not used by [place] Plan of Treatment: Future Appointments (+ 6 months) and Future Tests (+/- 45 days) The Plan of Treatment section includes future care activities for the [facility] This section includes future appointments and future orders which are active, pending or scheduled. Future Appointments This section includes appointments that were scheduled to occur 6 months from the date of the Encounter, up to a maximum of 20 appointments. The data comes from all [facility]. Appointment Date/Time Appointment Type Appointme nt Facility Name Aug 29, 2024 11:00 AM AMBULATORY - MEDICINE [facility] Sep 28, 2024 09:00 AM AMBULATORY - MEDICINE [facility] November 20, 2024 02:30 PM AMBULATORY - MEDICINE [facility] November 20, 2024 03:30 PM AMBULATORY - MEDICINE [facility] Active, Pending, and Scheduled Orders This section includes a listing of several types of active, pending, and scheduled orders, including clinic medications orders, diagnostic test orders, procedure orders and consult orders; where the start date of the order is 45 days before the date of the Encounter or 45 days after the date of theEncounter. The data comes from all [facility]. Test Date/Time Test Type Test Details Facility Name May 06, 2024 12:00 AM Laboratory - Chemistry Order LIPID PROFILE [id number] SP ONCE [facility] May 06, 2024 12:00 AM Laboratory - Chemistry Order GLYCOHEMOGLOBIN [id number] BLOOD SP ONCE [facility] May 06, 2024 12:00 AM Laboratory - Chemistry Order CBC/PLT [id number] BLOOD SP ONCE [facility] May 06, 2024 12:00 AM Laboratory - Chemistry Order PANEL 5 [id number] SP ONCE [facility] Lab Results: +/- 30 days of the encounter This section includes the Chemistry and Hematology Lab Results on record with [place] for the patient. Radiology Reports and Pathology Reports are provided separately, in subsequent sections. Lab Results This section contains the Chemistry/Hematology Results that were resulted 30 days before or 30 daysafter the date of the Encounter. Date/Time Source Result Type Result - Unit Interpretation Reference Range Specimen Type Comment May 24, 2024 10:05 AM [facility] CBC/PLT BLOOD Specimen Type: BLOOD No comment entered. Ordering Provider: IRASEMA GIRON Report Released Date/Time: May 03, 2024 09:16 AM Reporting Lab: [address] [id number] Performing Lab: [address] [address] WBC 8.4 10*3/uL 5.0-10.0 RBC 4.27 10*6/uL L 4.6-6.2 HGB 12.7 g/dL L 14.0-18.0 HCT 39.1 L 42.0-52.0 MCV 91.6 fL 80.0-94.0 MCH 29.7 pg 27.0-31.0 MCHC 32.5 g/dL 32.0-36.0 PLT 238 10*3/uL 150-450 MPV 9.2 fL 9.0-13.1 RDW 15.1 11.0-16.0 NRBC 0.0 0.0-0.0 Social History: Smoking Status (Most current) and Tobacco Use (All prior to encounter date) This section includes the most current, and the historical, smoking and tobacco- related health factors from the [place] facility where the Encounter took place. Current Smoking Status This section includes the most current smoking, or tobacco-related health factor, from the [place] facility where the Encounter took place. Date/Time Current Smoking Status Comment Zayda ity Apr 03, 2024 01:15 PM VA-TOBACCO NEVER USED [facility] Tobacco Use History This section includes a history of the smoking, or tobacco-related health factors, that were collected on or before the date of the Encounter. The data comes from the [place] facility where the Encounter took place. Date/Time Smoking Status/Tobacco Use Comment F acility Jan 21, 2016 04:53 PM NON-TOBACCO USE INPATIENT [facility] Jan 13, 2016 06:51 AM V9 QUIT TOBACCO >7 YEARS AGO [facility] Advance Directives: All historical and current Section Date Range: From patient's date of to the date document was created. This section includes ALL of a patient's completed or amended VA Advance and Rescinded Directives. The entries below indicate that a directive exists for the patient, but an actual copy is not included with this document. The data comes from all [place] facilities. Date Advance Directives Provider Source Apr 16, 2010 ADVANCE DIRECTIVE ALEXEY SHEPHERD
--- OUTSIDE RECORDS SUMMARY | 2024-09-20 03:58 | XMS_ITS | Encounter Summary ---
Author Name [facility] [place] [facility] [place] Address [address] [place] [address] Care Team Providers Care Industrial Hygiene Engineer Name Role Phone IRASEMA GIRON Primary Care [...] PART A Jun 04, 2009 PART A [id number] [place] PATIENT MEDICARE (WNR) MEDICARE (M) PART A Jun 04, 2009 PART A [id number] [place] PATIENT MEDICARE (WNR) MEDICARE (M) PART A Jun 04, 2009 PART A [id number] [place] PATIENT MEDICARE (WNR) MEDICARE (M) PART A Jun 04, 2009 PART A [id number] [place] PATIENT MEDICARE (WNR) MEDICARE (M) PART A Jun 04, 2009 PART A [id number] [phone] [place] PATIENT Selected Encounter This section includes the information on record at [place] for the Encounter. Date/Time Encounter Type Encounter Description Reason Pro vider Source Sep 20, 2024 07:58 AM Outpatient Encounter ADMIN PAT ACTIVTIES (MASNONCT) IHE Encounter Template Text not used by [place] Plan of Treatment: Future Appointments (+ 6 months) and Future Tests (+/- 45 days) The Plan of Treatment section includes future care activities for the [facility] [place] [facility] This section includes future appointments and future orders which are active, pending or scheduled. Future Appointments This section includes appointments that were scheduled to occur 6 months from the date of the Encounter, up to a maximum of 20 appointments. The data comes from all [place] treatment facilities. Appointment Date/Time Appointment Type Appointme nt Facility Name Sep 28, 2024 09:00 AM AMBULATORY [facility]INE [facility] November 20, 2024 02:30 PM AMBULATORY - MEDICINE [facility] November 20, 2024 03:30 PM AMBULATORY - MEDICINE [facility] Dec 11, 2024 11:00 AM AM[facility]UL[facility]ORY - NONE [facility] Dec 18, 2024 08:15 AM AMBULATORY - MEDICINE [facility] Dec 18, 2024 09:15 AM AMBULATORY - MEDICINE [facility] Dec 18, 2024 11:15 AM AMBULATORY - MEDICINE [facility] Social History: Smoking Status (Most current) and Tobacco Use (All prior to encounter date) This section includes the most current, and the historical, smoking and tobacco- related health factors from the [place] facility where the Encounter took place. Current Smoking Status This section includes the most current smoking, or tobacco-related health factor, from the [place] facility where the Encounter took place. Date/Time Current Smoking Status Comment Zayda ity Apr 03, 2024 01:15 PM VA-TOBACCO NEVER USED [facility] Tobacco Use History This section includes a history of the smoking, or tobacco-related health factors, that were collected on or before the date of the Encounter. The data comes from the [place] facility where the Encounter took place. Date/Time Smoking Status/Tobacco Use Comment F acility Jan 21, 2016 04:53 PM NON-TOBACCO USE INPATIENT [facility] Jan 13, 2016 06:51 AM V9 QUIT TOBACCO >7 YEARS AGO [facility] Advance Directives: All historical and current Section Date Range: From patient's date of to the date document was created. This section includes ALL of a patient's completed or amended [place] Advance and Rescinded Directives. The entries below indicate that a directive exists for the patient, but an actual copy is not included with this document. The data comes from all [place] facilities. Date Advance Directives Provider Source Apr 16, 2010 ADVANCE DIRECTIVE ALEXEY SHEPHERD BOC Encounter Notes: All associated encounter notes This section contains the clinical notes associated to the Encounter. Date/Time Encounter Note(s) Provider Source Sep 16, 2024 12:00 PM ADDENDUM: LOCAL TITLE: Addendum STANDARD TITLE: ADDENDUM DATE OF NOTE: SEP 16, 2024@12:00 ENTRY DATE: SEP 21, 2024@09:27:08 AUTHOR: LAUREANO SILVERMAN EXP COSIGNER: URGENCY: STATUS: COMPLETED VistA Imaging Scanned Document - Addendum. [facility] 09/15-09/16/2024 DC SUMMARY SCANNED DOCUMENT SIGNATURE NOT REQUIRED Electronically Filed: 09/21/2024 by: LAUREANO SILVERMAN Interfacility Cord Cutter Receipt Acknowledged By: 09/21/2024 10:48 /es/ CYRUS Neumann, RN Pc Thread Trimmer === --- Original Document --- 09/15/24 [facility] PRESENTING CARE COORD PLAN NOTE: Emergency Notification Intake Date Presenting to the Facility: Sep Date of note has been modified to reflect Date of Service. Reason for modification: Hospital Notification Date:09/15/2024 9:04 PM EDT Method of Contact: Notified from [employer] worklist Notification ID: [id number] approved [facility] Hospital Name: Hospital: [facility] Address: City: [place] State: [place] Chief complaint: WEAK, BP LOW, HR LOW, UNSTEADY ON FEET Primary Diagnosis: Disposition Admitted Route of Admission: Date of Admission: Sep Admitting Diagnosis: LOW BP Community Care Provider: Confirm Level of Care: Observation Discharge Disposition Date of discharge: Sep Disposition Discharge to home /mona/ Mariama [employer] 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 Signed: 09/20/2024 08:04 Receipt Acknowledged By: 09/20/2024 08:25 /CYRUS Flannery, RN Pc Thread Trimmer 09/20/2024 08:07 /mona/ IRASEMA GIRON NURSE PRACTITIONER LAUREANO SILVERMAN[facility] Sep 15, 2024 10:02 AM NONVA NOTE: LOCAL TITLE: COMMUNITY CARE-GENE SELF PRESENTING CARE COORD PLAN STANDARD TITLE: NONVA NOTE DATE OF NOTE: SEP 15, 2024@10:02 ENTRY DATE: SEP 20, 2024@08:01:40 AUTHOR: MARIAMA HOUSE COSIGNER: URGENCY: STATUS: COMPLETED COMMUNITY CARE-GENE SELF PRESENTING CARE COORD PLAN NOTE Has ADDENDA Emergency Notification Intake Date Presenting to the Facility: Sep Date of note has been modified to reflect Date of Service. Reason for modification: Hospital Notification Date:09/15/2024 9:04 PM EDT Method of Contact: Notified from [employer] worklist Notification ID: [id number] approved [facility] Name: Hospital: [facility] Address: City: [place] State: [place] Chief complaint: WEAK, BP LOW, HR LOW, UNSTEADY ON FEET Primary Diagnosis: Disposition Admitted Route of Admission: Date of Admission: Sep Admitting Diagnosis: LOW BP Community Care Provider: Confirm Level of Care: Observation Discharge Disposition Date of discharge: Sep Disposition Discharge to home /mona/ Mariama [employer] 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 [facility] 09/15-09/16/2024 DC SUMMARY SCANNED DOCUMENT SIGNATURE NOT REQUIRED Electronically Filed: 09/21/2024 by: LAUREANO SILVERMAN Interfacility Cord Cutter Receipt Acknowledged By: * AWAITING SIGNATURE * NIKO SHORT,MARIAMA GAFFNEY-Leona [facility]
--- OUTSIDE RECORDS SUMMARY | 2024-09-28 05:00 | XMS_ITS | Encounter Summary ---
Author Name [facility] [place] [facility] [place] Address [address] [place] [address] Care Team Providers Care Construction Consultant Name Role Phone IRASEMA GIRON Primary Care [...] PART A Jun 04, 2009 PART A [id number] [phone] [place] PATIENT MEDICARE (WNR) MEDICARE (M) PART A Jun 04, 2009 PART A [id number] GAYLE RY PATIENT MEDICARE (WNR) MEDICARE (M) PART A Jun 04, 2009 PART A [id number] [place] PATIENT MEDICARE (WNR) MEDICARE (M) PART A Jun 04, 2009 PART A [id number] [place] PATIENT MEDICARE (WNR) MEDICARE (M) PART A Jun 04, 2009 PART A [id number] [place] PATIENT Selected Encounter This section includes the information on record at [place] for the Encounter. Date/Time Encounter Type Encounter Description Reason Pro vider Source Sep 28, 2024 09:00 AM Outpatient Encounter PULMONARY/CHEST IHE Encounter Template Text not used by [place] Plan of Treatment: Future Appointments (+ 6 months) and Future Tests (+/- 45 days) The Plan of Treatment section includes future care activities for the patient [facility] [place] [facility]. This section includes future appointments and future orders which are active, pending or scheduled. Future Appointments This section includes appointments that were scheduled to occur 6 months from the date of the Encounter, up to a maximum of 20 appointments. The data comes from all [place] treatment facilities. Appointment Date/Time Appointment Type Appointme nt Facility Name November 20, 2024 02:30 PM AMBULATORY - MEDICINE [facility] November 20, 2024 03:30 PM AMBULATORY - MEDICINE [facility] Dec 11, 2024 11:00 AM [facility] Dec 18, 2024 08:15 AM AMBULATORY - MEDICINE [facility] Dec 18, 2024 09:15 AM AMBULATORY - MEDICINE [facility] Dec 18, 2024 11:15 AM AMBULATORY - MEDICINE [facility] Social History: Smoking Status (Most current) and Tobacco Use (All prior to encounter date) This section includes the most current, and the historical, smoking and tobacco- related health factors from the [place] facility where the Encounter took place. Current Smoking Status This section includes the most current smoking, or tobacco-related health factor, from the [place] facility where the Encounter took place. Date/Time Current Smoking Status Comment Zayda ity Apr 03, 2024 01:15 PM VA-TOBACCO NEVER USED [facility] Tobacco Use History This section includes a history of the smoking, or tobacco-related health factors, that were collected on or before the date of the Encounter. The data comes from the [place] facility where the Encounter took place. Date/Time Smoking Status/Tobacco Use Comment F acility Jan 21, 2016 04:53 PM NON-TOBACCO USE INPATIENT [facility] Jan 13, 2016 06:51 AM V9 QUIT TOBACCO >7 YEARS AGO [facility] Advance Directives: All historical and current Section Date Range: From patient's date of to the date document was created. This section includes ALL of a patient's completed or amended [place] Advance and Rescinded Directives. The entries below indicate that a directive exists for the patient, but an actual copy is not included with this document. The data comes from all [place] facilities. Date Advance Directives Provider Source Apr 16, 2010 ADVANCE DIRECTIVE ALEXEY SHEPHERD
--- OUTSIDE RECORDS SUMMARY | 2024-11-15 08:46 | XMS_ITS | Encounter Summary ---
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 Date/Time Encounter Type Encounter Description Reason Pro vider Source November 15, 2024 12:46 PM Outpatient Encounter TELEPHONE TRIAGE IHE Encounter Template Text not used by [place] Plan of Treatment: Future Appointments (+ 6 months) and Future Tests (+/- 45 days) The Plan of Treatment section includes future care activities for the [facility] from [facility] [place] [facility] This section includes future appointments and future orders which are active, pending or scheduled. Future Appointments This section includes appointments that were scheduled to occur 6 months from the date of the Encounter, up to a maximum of 20 appointments. The data comes from all [facility]. Appointment Date/Time Appointment Type Appointme nt Facility Name November 20, 2024 02:30 PM AMBULATORY - MEDICINE [facility] November 20, 2024 03:30 PM AMBULATORY - MEDICINE [facility] Dec 11, 2024 11:00 AM AMBULATORY - NONE [facility] Dec 18, 2024 08:15 AM AMBULATORY - MEDICINE [facility] Dec 18, 2024 09:15 AM AMBULATORY - MEDICINE [facility] Dec 18, 2024 11:15 AM AMBULATORY - MEDICINE [facility] Active, Pending, and Scheduled Orders This section includes a listing of several types of active, pending, and scheduled orders, including clinic medications orders, diagnostic test orders, procedure orders and consult orders; where the start date of the order is 45 days before the date of the Encounter or 45 days after the date of theEncounter. The data comes from all [facility]. Test Date/Time Test Type Test Details Facility Name Dec 11, 2024 03:47 PM Consult Order MED DERMAT OLOGY OUTPATIENT Cons Irrigation Foreman[facility] Choice [facility] Dec 25, 2024 12:00 AM Laboratory - Chemi stry Order PANEL 1 SWV-UILSE-LTHEKP SP ONCE [facility] Dec 25, 2024 12:00 AM Laboratory - Chemi stry Order BNP (KEITH) [id number] SP [facility] Lab Results: +/- 30 [...] Unit Interpretation Reference Range Specimen Type Comment Dec 11, 2024 12:05 PM [facility] GLYCOHEMOGLOBIN BLOOD Specimen Type: BLOOD Comment: Prediabetes: 5.7%-6.4% Diabetes: >= 6.5% [facility] guidelines for A1c interpretation: Glycemic control targets are based on Shared Decision Making between clinicians and patients. Criteria used to establish an A1c target recommendation can be found at https://www.ia. ov/qualityandpat ientsafety/ and include the use of result accuracy and precision(CV) of the A1c tests clinicians utilize at their own sites of practice. Values obtained from A1C measurements can vary. For typical A1C assays, a reported value of 7.0 could actually be between 6.72 and 7.28 if measured by a reference method. A reported value of 9.0 could actually be between 8.73 and 9.27. Ref: https://ngsp.org /CAPdata.asp. The in-house [employer] D-100 analyzer has a historical CV <= 2%. Contact the laboratory for further performance characteristics of this assay. Ordering Provider: IRASEMA GIRON Report Released Date/Time: Dec 11, 2024 11:48 AM Reporting Lab: [address] [address] Performing Lab: [address] [address] GLYCOHEMOGLOBIN 5.1 4.4-5.6 Dec 11, 2024 12:05 PM [facility] LIPID PROFILE PLASMA Specimen Type: PLASM A Comment: Estimated [...] decrease <15 G5 Kidney failure Ordering Provider: IRASEMA GIRON Report Released Date/Time: Dec 11, 2024 11:48 AM Reporting Lab: [address] [address] Performing Lab: [address] [address] CHOLESTEROL 151 mg/dL 0-199 TRIGLYCERIDE 60 mg/dL 0-149 HDL CHOLESTEROL 72 mg/dL H 40-69 DIRECT LDL CHOL. 70 mg/dL 0-100 Dec 11, 2024 12:05 PM [facility] CBC/PLT BLOOD Specimen Type: BLOOD No comment entered. Ordering Provider: IRASEMA GIRON Report Released Date/Time: Dec 11, 2024 11:48 AM Reporting Lab: [address] [address] Performing Lab: [address] [address] WBC 8.4 10*3/uL 5.0-10.0 RBC 4.51 10*6/uL L 4.6-6.2 HGB 13.2 g/dL L 14.0-18.0 HCT 40.5 L 42.0-52.0 MCV 89.8 fL 80.0-94.0 MCH 29.3 pg 27.0-31.0 MCHC 32.6 g/dL 32.0-36.0 PLT 241 10*3/uL 150-450 MPV 10.3 fL 9.0-13.1 RDW 13.2 11.0-16.0 NRBC 0.0 0.0-0.0 Dec 11, 2024 12:05 PM [facility] PANEL 5 PLASMA Specimen Type: PLASM A [...] decrease <15 G5 Kidney failure Ordering Provider: IRASEMA GIRON Report Released Date/Time: Dec 11, 2024 11:48 AM Reporting Lab: [address] [address] Performing Lab: [address] [address] CREATININE 0.60 mg/dL L 0.72-1.25 UREA NITROGEN 7 mg/dL L 9-25 GLUCOSE 83 mg/dL 74-100 SODIUM 131 mmol/L L 136-145 POTASSIUM 4.6 mmol/L 3.5-5.1 CHLORIDE 95 mmol/L L 98-107 CO2 28 mmol/L 22-29 CALCIUM 9.0 mg/dL 8.4-10.2 TOTAL PROTEIN 7.0 g/dL 6.4-8.3 ALBUMIN 3.8 g/dL 3.5-5.2 TOTAL BILIRUBIN 0.6 mg/dL 0.2-1.2 AST 21 U/L 5-34 ALT 10 U/L 0-55 ANION GAP 8 meq/L 3-19 ALK PHOS 64 U/L 40-150 eGFR (CKD-EPI) >90 Social History: Smoking Status (Most current) and Tobacco Use (All prior to encounter date) This section includes the most current, and the historical, smoking and tobacco- related health factors from the [place] facility where the Encounter took place. Current Smoking Status This section includes the most current smoking, or tobacco-related health factor, from the [place] facility where the Encounter took place. Date/Time Current Smoking Status Comment Zayda ity Mar 18, 2023 10:00 AM [place]-TOBAC[place] FORMER USER [facility] Tobacco Use History This section includes a history of the smoking, or tobacco-related health factors, that were collected on or before the date of the Encounter. The data comes from the [place] facility where the Encounter took place. Date/Time Smoking Status/Tobacco Use Comment F acility Mar 18, 2023 10:00 AM [place]-TOBACCO QUIT 5 TO < 15 YRS [facility] Apr 30, 2022 11:00 AM [place]-TOBACCO FORMER USER [facility] Apr 30, 2022 11:00 AM VA-TOBACCO QUIT 15 YRS OR MORE [facility] Apr 24, 2021 09:30 AM VA-TOBACCO FORMER USER [facility] Apr 24, 2021 09:30 AM VA-TOBACCO QUIT 5 TO < 15 YRS [facility] Feb 14, 2021 10:00 AM VA-TOBACCO FORMER USER [facility] Feb 14, 2021 10:00 AM VA-TOBACCO QUIT 15 YRS OR MORE [facility] Apr 20, 2018 11:36 AM VA-TOBACCO FORMER USER [facility] Apr 20, 2018 11:36 AM VA-TOBACCO QUIT 15 YRS OR MORE [facility] Feb 09, 2017 10:00 AM V9 QUIT TOBACCO >7 YEARS AGO [facility] Feb 11, 2015 10:54 AM V9 QUIT TOBACCO >7 YEARS AGO [facility] Mar 16, 2014 08:35 AM V9 QUIT TOBACCO >1 2 MO & <7 YRS AGO [facility] Mar 16, 2014 08:35 AM V9 TOBACCO OFFERED [facility] Advance Directives: All historical and current Section Date Range: From patient's date of to the date document was created. This section includes ALL of a patient's completed or amended [place] Advance and Rescinded Directives. The entries below indicate that a directive exists for the patient, but an actual copy is not included with this document. The data comes from all [place] facilities. Date Advance Directives Provider Source Apr 16, 2010 ADVANCE DIRECTIVE ALEXEY SHEPHERD [facility] Encounter Notes: All associated encounter notes This section contains the clinical notes associated to the Encounter. Date/Time Encounter Note(s) Provider Source November 16, 2024 07:02 AM ADDENDUM: LOCAL TITLE: Addendum STANDARD TITLE: ADDENDUM DATE OF NOTE: NOVEMBER 16, 2024@07:02:30 ENTRY DATE: NOVEMBER 16, 2024@07:02:31 AUTHOR: REINA SANTOS COSIGNER: URGENCY: STATUS: COMPLETED has an appt. on 11/30/2024 in [facility] P[facility]M F5 clinic with Dr. Rand. Will view alert PULAndrew. PATRICIO to schedule for sooner appt. with any [facility] provider with sooner availability as his current provider will be completing her Pulmonology Fellowship in December 2024 and [facility]24 so the above appt. can be moved up with any provider as he will be a new pt. to any provider if PULM. F3, Dr. Meyer does not have any availability in her last [facility] F[facility] clinic on 11/23/2024. /es/ Reina Santos, RN Pulmonary Seat Trimmer Signed: 11/16/2024 07:06 Receipt Acknowledged By: 11/16/2024 09:26 /es/ CYRUS Neumann, RN Pc Guest History Clerk 11/16/2024 08:13 /es/ KENY POLLARD RN REGISTERED NURSE 11/17/2024 09:33 /es/ IRASEMA THOMSON 11/16/2024 09:23 /es/ IRASEMA GIRON NURSE PRACTITIONER --- Original Document --- 11/15/24 CCC: CLINICAL TRIAGE: Caller Verification Call Back Number: [phone] Caller/Recipient Relation to Patient: Self Caller Name: MARIZA JAY Emergency Contact: ROBERT JAY MSA Screening Patient Stated Symptoms: Pt c/o knot on his left leg above his calve, very sore, ran into his coffee table x 3 weeks. Triage Summary Conducted triage/discussed symptoms Pain Score: 4 Utilized the Triage Tool: Yes Chief Complaint: Breathing Difficulty System WHEN: Now, 911 Nurse's Recommendation / WHEN: Now System WHERE: Emergency department Nurse's Recommendation / WHERE: [facility] Patient Disposition Patient/Caregiver agrees to plan of care: Yes Patient WHERE: Clinic/[facility] Patient WHEN: Within 24 hours Nursing Plan and Disposition Referred Patient for In-Person Appt Other Other Description: pt req rec Nurse Summary Nurse Summary: pt called to report c/o knot on his left leg above his calf, very sore, ran into his coffee table x 3 weeks. denies redness or swelling and no drainage. pt states his real problem is his breathing, he is on 3.5L [place] he is not checking his sat at home, due to difficulty to get it to read on his finger also has external defib due to 15+ stents and unable to get internal pt noted to be short of breath on the phone denies fever or increase cough states no chest pain triage completed with system rec of er now pt declined to go to local er, states his breathing has been this way for some time again encouraged him to go to er for eval. will review with pulm card and pcp Clinical Contact Center Codes Clinic/Location: V9 [facility] RN DAYTIME Decision Support System Output: Triage Complete Triage Date: 11/15/2024, 12:37 PM Triage Note: Decision Support Tool Used: [facility] Phone Triage 15 Nov 2024 16:33:38 +0000 [facility] Demographics 74 y/o Male Results CC: Breathing Difficulty Software suggested: , 911 Software suggested follow-up location: Emergency department Values and Measures Duration of CC: 4 Weeks Positive Responses HPI: dyspnea, severe PMH: CHF VS: temperature not taken Negative Responses Denies: HPI: chest pain Denies: HPI: cough, new or worsening Denies: HPI: wheezing, new or worsening IMPORTANT: This note was created by [facility] Clinical Contact Center staff. Please do not alert the staff member by adding them as a signer for future communications. Alerts are not monitored by this user. /es/ KENY POLLARD RN REGISTERED NURSE Signed: 11/15/2024 12:46 Receipt Acknowledged By: 11/16/2024 10:31 /mona/ CYRUS Neumann, RN Pc Guest History Clerk 11/15/2024 14:06 /es/ TJ KAMARA RN * AWAITING SIGNATURE * REINA SANTOS 11/15/2024 13:19 /mona/ IRASEMA GIRON NURSE PRACTITIONER 11/15/2024 ADDENDUM STATUS: COMPLETED Could have hematoma on his leg due to blood thinner, would apply warm moist heat to area and see if this helps it improve. If SOA worsens recommend ED eval. /es/ IRASEMA GIRON NURSE PRACTITIONER Signed: 11/15/2024 13:20 Receipt Acknowledged By: 11/16/2024 10:24 /mona/ CYRUS Neumann, RN Pc Guest History Clerk 11/16/2024 ADDENDUM STATUS: COMPLETED ccc f/u pt contacted by pc team /mona/ KENY POLLARD RN REGISTERED NURSE Signed: 11/16/2024 11:30 11/17/2024 ADDENDUM STATUS: UNSIGNED You may not VIEW this UNSIGNED Addendum. REINA SANTOS [facility] November 15, 2024 01:19 PM ADDENDUM: LOCAL TITLE: Addendum STANDARD TITLE: ADDENDUM DATE OF NOTE: NOVEMBER 15, 2024@13:19:10 ENTRY DATE: NOVEMBER 15, 2024@13:19:11 AUTHOR: IRASEMA GIRON EXP COSIGNER: URGENCY: STATUS: COMPLETED Could have hematoma on his leg due to blood thinner, would apply warm moist heat to area and see if this helps it improve. If SOA worsens recommend ED eval. /es/ IRASEMA GIRON NURSE PRACTITIONER Signed: 11/15/2024 13:20 Receipt Acknowledged By: 11/16/2024 10:24 /mona/ CYRUS Neumann, RN Pc Guest History Clerk --- Original Document --- 11/15/24 CCC: CLINICAL TRIAGE: Caller Verification Call Back Number: [phone] Caller/Recipient Relation to Patient: Self Caller Name: MARIZA JAY Emergency Contact: ROBERT JAY MSA Screening Patient Stated Symptoms: Pt c/o knot on his left leg above his calve, very sore, ran into his coffee table x 3 weeks. Triage Summary Conducted triage/discussed symptoms Pain Score: 4 Utilized the Triage Tool: Yes Chief Complaint: Breathing Difficulty System WHEN: Now, 911 Nurse's Recommendation / WHEN: Now System WHERE: Emergency department Nurse's Recommendation / WHERE: [facility] Patient Disposition Patient/Caregiver agrees to plan of care: Yes Patient WHERE: Clinic/[facility] Patient WHEN: Within 24 hours Nursing Plan and Disposition Referred Patient for In-Person Appt Other Other Description: pt req rec Nurse Summary Nurse Summary: pt called to report c/o knot on his left leg above his calf, very sore, ran into his coffee table x 3 weeks. denies redness or swelling and no drainage. pt states his real problem is his breathing, he is on 3.5L [place] he is not checking his sat at home, due to difficulty to get it to read on his finger also has external defib due to 15+ stents and unable to get internal pt noted to be short of breath on the phone denies fever or increase cough states no chest pain triage completed with system rec of er now pt declined to go to local er, states his breathing has been this way for some time again encouraged him to go to er for eval. will review with pulm card and pcp Clinical Contact Center Codes Clinic/Location: V9 [facility] RN DAYTIME Decision Support System Output: Triage Complete Triage Date: 11/15/2024, 12:37 PM Triage Note: Decision Support Tool Used: [facility] Phone Triage 15 Nov 2024 16:33:38 +0000 [facility] Demographics 74 y/o Male Results CC: Breathing Difficulty Software suggested: Now, 911 Software suggested follow-up location: Emergency department Values and Measures Duration of CC: 4 Weeks Positive Responses HPI: dyspnea, severe PMH: CHF VS: temperature not taken Negative Responses Denies: HPI: chest pain Denies: HPI: cough, new or worsening Denies: HPI: wheezing, new or worsening IMPORTANT: This note was created by [facility] Clinical Contact Center staff. Please do not alert the staff member by adding them as a signer for future communications. Alerts are not monitored by this user. /mona/ KENY POLLARD RN REGISTERED NURSE Signed: 11/15/2024 12:46 Receipt Acknowledged By: * AWAITING SIGNATURE * NIKO SHORT 11/15/2024 14:06 /es/ TJ KAMARA RN * AWAITING SIGNATURE * REINA SANTOS 11/15/2024 13:19 /es/ IRASEMA GIRON NURSE PRACTITIONER 11/16/2024 ADDENDUM STATUS: COMPLETED has an appt. on 11/30/2024 in [facility] [address]. Rand. Will view alert PULM. MSA to schedule for sooner appt. with any [facility] provider with sooner availability as his current provider will be completing her Pulmonology Fellowship in December 2024 and [facility] so the above appt. can be moved up with any provider as he will be a new pt. to any provider if PULM. F3, Dr. Meyer does not have any availability in her last [facility] clinic on 11/23/2024. /mona/ Reina Santos RN Pulmonary Seat Trimmer Signed: 11/16/2024 07:06 Receipt Acknowledged By: 11/16/2024 09:26 /es/ CYRUS Neumann, RN Pc Guest History Clerk 11/16/2024 08:13 /es/ KENY K POLLARD RN REGISTERED NURSE * AWAITING SIGNATURE * IRASEMA THOMSON Joey 11/16/2024 09:23 /mona/ IRASEMA GIRON NURSE PRACTITIONER IRASEMA GIRON [facility] November 15, 2024 12:46 PM RN PROGRESS NOTE: LOCAL TITLE: CCC: CLINICAL TRIAGE STANDARD TITLE: RN PROGRESS NOTE DATE OF NOTE: NOVEMBER 15, 2024@12:46:42 ENTRY DATE: NOVEMBER 15, 2024@12:46:42 AUTHOR: KENY POLLARD EXP COSIGNER: URGENCY: STATUS: COMPLETED CCC: CLINICAL TRIAGE Has ADDENDA Caller Verification Call Back Number: [phone] Caller/Recipient Relation to Patient: Self Caller Name: MARIZA JAY Emergency Contact: ROBERT JAY [facility] Screening Patient Stated Symptoms: Pt c/o knot on his left leg above his calve, very sore, ran into his coffee table x 3 weeks. Triage Summary Conducted triage/discussed symptoms Pain Score: 4 Utilized the Triage Tool: Yes Chief Complaint: Breathing Difficulty System WHEN: Now, 911 Nurse's Recommendation / WHEN: Now System WHERE: Emergency department Nurse's Recommendation / WHERE: [facility] Patient Disposition Patient/Caregiver agrees to plan of care: Yes Patient WHERE: Clinic/[facility] Patient WHEN: Within 24 hours Nursing Plan and Disposition Referred Patient for In-Person Appt Other Other Description: pt req rec Nurse Summary Nurse Summary: pt called to report c/o knot on his left leg above his calf, very sore, ran into his coffee table x 3 weeks. denies redness or swelling and no drainage. pt states his real problem is his breathing, he is on 3.5L [place] he is not checking his sat at home, due to difficulty to get it to read on his finger also has external defib due to 15+ stents and unable to get internal pt noted to be short of breath on the phone denies fever or increase cough states no chest pain triage completed with system rec of er now pt declined to go to local er, states his breathing has been this way for some time again encouraged him to go to er for eval. will review with pulm card and pcp Clinical Contact Center Codes Clinic/Location: V9 [facility] RN DAYTIME Decision Support System Output: Triage Complete Triage Date: 11/15/2024, 12:37 PM Triage Note: Decision Support Tool Used: [facility] Phone Triage Wed, 15 Nov 2024 16:33:38 +0000 [facility] Demographics 74 y/o Male Results CC: Breathing Difficulty Software suggested: Now, 911 Software suggested follow-up location: Emergency department Values and Measures Duration of CC: 4 Weeks Positive Responses HPI: dyspnea, severe PMH: CHF VS: temperature not taken Negative Responses Denies: HPI: chest pain Denies: HPI: cough, new or worsening Denies: HPI: wheezing, new or worsening IMPORTANT: This note was created by [facility] Clinical Contact Center staff. Please do not alert the staff member by adding them as a signer for future communications. Alerts are not monitored by this user. /es/ KENY POLLARD RN REGISTERED NURSE Signed: 11/15/2024 12:46 Receipt Acknowledged By: 11/16/2024 10:31 /es/ CYRUS Neumann, RN Pc Guest History Clerk 11/15/2024 14:06 /es/ TJ KAMARA RN 11/17/2024 17:58 /es/ Reina Santos RN Pulmonary Seat Trimmer 11/15/2024 13:19 /es/ IRASEMA GIRON NURSE PRACTITIONER 11/15/2024 ADDENDUM STATUS: COMPLETED Could have hematoma on his leg due to blood thinner, would apply warm moist heat to area and see if this helps it improve. If SOA worsens recommend ED eval. /mona/ IRASEMA GIRON NURSE PRACTITIONER Signed: 11/15/2024 13:20 Receipt Acknowledged By: 11/16/2024 10:24 /mona/ CYRUS Neumann, RN Pc Guest History Clerk 11/16/2024 ADDENDUM STATUS: COMPLETED [place] has an appt. on 11/30/2024 in [facility] with [address]. Rand. Will view alert PULM. MSA to schedule for sooner appt. with any [facility] provider with sooner availability as his current provider will be completing her Pulmonology Fellowship in December 2024 and [facility]24 so the above appt. can be moved up with any provider as he will be a new pt. to any provider if PULM. F3, Dr. Meyer does not have any availability in her last [facility] F[facility] clinic on 11/23/2024. /es/ Reina Santos RN Pulmonary Seat Trimmer Signed: 11/16/2024 07:06 Receipt Acknowledged By: 11/16/2024 09:26 /es/ CYRUS Neumann, RN Pc Guest History Clerk 11/16/2024 08:13 /es/ KENY POLLARD RN REGISTERED NURSE 11/17/2024 09:33 /es/ IRASEMA THOMSON 11/16/2024 09:23 /es/ IRASEMA GIRON NURSE PRACTITIONER 11/16/2024 ADDENDUM STATUS: COMPLETED ccc f/u pt contacted by pc team /mona/ KENY POLLARD RN REGISTERED NURSE Signed: 11/16/2024 11:30 KENY POLLARD [facility]
--- OUTSIDE RECORDS SUMMARY | 2024-11-15 08:47 | XMS_ITS | Encounter Summary ---
Author Name [facility] [place] [facility] [place] Address [address] [place] [address] Care Team Providers Care Satellite Tv Technician Installer Name Role Phone IRASEMA GIRON Primary Care [...] PART A Jun 04, 2009 PART A [id number] [place] PATIENT MEDICARE (WNR) MEDICARE (M) PART A Jun 04, 2009 PART A [id number] [place] PATIENT MEDICARE (WNR) MEDICARE (M) PART A Jun 04, 2009 PART A [id number] [place] PATIENT MEDICARE (WNR) MEDICARE (M) PART A Jun 04, 2009 PART A [id number] [place] PATIENT MEDICARE (WNR) MEDICARE (M) PART A Jun 04, 2009 PART A [id number] [place] PATIENT Selected Encounter This section includes the information on record at [place] for the Encounter. Date/Time Encounter Type Encounter Description Reason Pro vider Source November 15, 2024 12:47 PM Outpatient Encounter TELEPHONE TRIAGE IHE Encounter Template Text not used by [place] Plan of Treatment: Future Appointments (+ 6 months) and Future Tests (+/- 45 days) The Plan of Treatment section includes future care activities for the patient from all [place] [facility]. This section includes future appointments and future orders which are active, pending or scheduled. Future Appointments This section includes appointments that were scheduled to occur 6 months from the date of the Encounter, up to a maximum of 20 appointments. The data comes from all [facility]. Appointment Date/Time Appointment Type Appointme nt Facility Name November 20, 2024 02:30 PM AMBULATORY - MEDICINE [facility] November 20, 2024 03:30 PM AMBULATORY - MEDICINE [facility] Dec 11, 2024 11:00 AM AMBULATORY - NONE [facility] Dec 18, 2024 08:15 AM AMBULATORY - MEDICINE [facility] Dec 18, 2024 09:15 AM AMBULATORY - MEDICINE [facility] Dec 18, 2024 11:15 AM AMBULATORY - MEDICINE [facility] Active, Pending, and Scheduled Orders This section includes a listing of several types of active, pending, and scheduled orders, including clinic medications orders, diagnostic test orders, procedure orders and consult orders; where the start date of the order is 45 days before the date of the Encounter or 45 days after the date of theEncounter. The data comes from all [facility]. Test Date/Time Test Type Test Details Facility Name Dec 11, 2024 03:47 PM Consult Order MED DERMAT OLOGY OUTPATIENT Cons Project Consultant's Choice [facility] Dec 25, 2024 12:00 AM Laboratory - Chemi stry Order PANEL 1 [id number] SP ONCE [facility] Dec 25, 2024 12:00 AM Laboratory - Chemi stry Order BNP (KEITH) [id number] SP [facility] Lab Results: +/- 30 days of [...] Type Comment Dec 11, 2024 12:05 PM [facility] GLYCOHEMOGLOBIN BLOOD Specimen Type: BLOOD Comment: Prediabetes: 5.7%-6.4% Diabetes: >= 6.5% [facility] guidelines for A1c interpretation: Glycemic control targets are based on Shared Decision Making between clinicians and patients. Criteria used to establish an A1c target recommendation can be found at https://www.fl. ov/qualityandpat ientsafety/ and include the use of [...] and 9.27. Ref: https://ngsp.org /CAPdata.asp. The in-house [employer] D-100 analyzer has a historical CV <= 2%. Contact the laboratory for further performance characteristics of this assay. Ordering Provider: IRASEMA GIRON Report Released Date/Time: Dec 11, 2024 11:48 AM Reporting Lab: [address] [address] Performing Lab: [address] [address] GLYCOHEMOGLOBIN 5.1 4.4-5.6 Dec 11, 2024 12:05 PM [facility] LIPID PROFILE PLASMA Specimen Type: PLASM A [...] Dec 11, 2024 11:48 AM Reporting Lab: [address] [address] Performing Lab: [address] [address] CHOLESTEROL 151 mg/dL 0-199 TRIGLYCERIDE 60 mg/dL 0-149 HDL CHOLESTEROL 72 mg/dL H 40-69 DIRECT LDL CHOL. 70 mg/dL 0-100 Dec 11, 2024 12:05 PM [facility] CBC/PLT BLOOD Specimen Type: BLOOD No comment entered. Ordering Provider: IRASEMA GIRON Report Released Date/Time: Dec 11, 2024 11:48 AM Reporting Lab: [address] [address] Performing Lab: [address] [address] WBC 8.4 10*3/uL 5.0-10.0 RBC 4.51 10*6/uL L 4.6-6.2 HGB 13.2 g/dL L 14.0-18.0 HCT 40.5 L 42.0-52.0 MCV 89.8 fL 80.0-94.0 MCH 29.3 pg 27.0-31.0 MCHC 32.6 g/dL 32.0-36.0 PLT 241 10*3/uL 150-450 MPV 10.3 fL 9.0-13.1 RDW 13.2 11.0-16.0 NRBC 0.0 0.0-0.0 Dec 11, 2024 12:05 PM [facility] PANEL 5 PLASMA Specimen Type: PLASM [...] Dec 11, 2024 11:48 AM Reporting Lab: [address] [address] Performing Lab: [address] [address] CREATININE 0.60 mg/dL L 0.72-1.25 UREA NITROGEN [...] Facil ity Mar 18, 2023 10:00 AM PA-TOBACCO QUIT 5 TO < 15 YRS [facility] Tobacco Use History This section includes a history of the smoking, or tobacco-related health factors, that were collected on or before the date of the Encounter. The data comes from the [place] facility where the Encounter took place. Date/Time Smoking Status/Tobacco Use Comment F acility Mar 18, 2023 10:00 AM PA-TOBACCO QUIT 5 TO < 15 YRS [facility] Apr 30, 2022 11:00 AM VA-TOBACCO FORMER USER [facility] Apr 30, 2022 11:00 AM VA-TOBACCO QUIT 15 YRS OR MORE [facility] Apr 24, 2021 09:30 AM VA-TOBACCO FORMER USER [facility] Apr 24, 2021 09:30 AM VA-TOBACCO QUIT 5 TO < 15 YRS [facility] Feb 14, 2021 10:00 AM VA-TOBACCO FORMER USER [facility] Feb 14, 2021 10:00 AM VA-TOBACCO QUIT 15 YRS OR MORE [facility] Apr 20, 2018 11:36 AM VA-TOBACCO FORMER USER [facility] Apr 20, 2018 11:36 AM VA-TOBACCO QUIT 15 YRS OR MORE [facility] Feb 09, 2017 10:00 AM V9 QUIT TOBACCO >7 YEARS AGO [facility] Feb 11, 2015 10:54 AM V9 QUIT TOBACCO >7 YEARS AGO [facility] Mar 16, 2014 08:35 AM V9 QUIT TOBACCO >1 2 MO & <7 YRS AGO [facility] Mar 16, 2014 08:35 AM V9 TOBACCO OFFERED [facility] Advance Directives: All historical and current [...] Apr 16, 2010 ADVANCE DIRECTIVE ALEXEY SHEPHERD [facility] Encounter Notes: All associated encounter notes This section contains the clinical notes associated to the Encounter. Date/Time Encounter Note(s) Provider Source November 15, 2024 12:47 PM ADMINISTRATIVE NOT E: LOCAL TITLE: MEDICATION REQUEST STANDARD TITLE: ADMINISTRATIVE NOTE DATE OF NOTE: NOVEMBER 15, 2024@12:47 ENTRY DATE: NOVEMBER 15, 2024@12:47:33 AUTHOR: KENY POLLARD COSIGNER: URGENCY: STATUS: COMPLETED 1. Patient Name: 2. Phone #: 3. Specialty Clinic/Primary Care Team: 4. Medication: artificial tear eye drops pt requesting refill, states almost out 5. Last fill date: Provider: 6. The patient requests prescription: 7. View Alert to: /es/ KENY POLLARD RN REGISTERED NURSE Signed: 11/15/2024 12:48 Receipt Acknowledged By: 11/15/2024 13:18 /es/ IRASEMA GIRON NURSE PRACTITIONER KENY POLLARD [facility]
--- OUTSIDE RECORDS SUMMARY | 2024-11-16 06:27 | XMS_ITS | Encounter Summary ---
Author Name [facility] [place] [facility] [place] Address [address] [place] [address] Care Team Providers Care Industrial Health Engineer Name Role Phone IRASEMA GIRON Primary [...] PART A Jun 04, 2009 PART A [id number] [place] PATIENT MEDICARE (WNR) MEDICARE (M) PART A Jun 04, 2009 PART A [id number] [place] PATIENT MEDICARE (WNR) MEDICARE (M) PART A Jun 04, 2009 PART A [id number] [place] PATIENT MEDICARE (WNR) MEDICARE (M) PART A Jun 04, 2009 PART A [id number] [place] PATIENT MEDICARE (WNR) MEDICARE (M) PART A Jun 04, 2009 PART A [id number] [place] PATIENT Selected Encounter This section includes the information on record at [place] for the Encounter. Date/Time Encounter Type Encounter Description Reason Provider Source November 16, 2024 10:27 AM PH1 ASSMT&MGMT NQHP 5-10 TELEPHONE PRIMARY CARE ICD-10-CM Z71.89 Other specified counseling CHARI SHORT IHE Encounter Template Text not used by [place] Assessments - Encounter Diagnoses This section includes the primary and secondary diagnoses documented for the Encounter. Date/Time Primary/Secondary Diagnosis Diagnosis Name Provider Source November 16, 2024 10:27 AM PRIMARY Other specified counseling CHARI SHORT [facility] Plan of Treatment: Future Appointments (+ 6 months) and Future Tests (+/- 45 days) The Plan of Treatment section includes future care activities for the patient from all [place] [facility]. This section includes future appointments and future orders which are active, pending or scheduled. Future Appointments This section includes appointments that were scheduled to occur 6 months from the date of the Encounter, up to a maximum of 20 appointments. The data comes from all [facility]. Appointment Date/Time Appointment Type Appointme nt Facility Name November 20, 2024 02:30 PM AMBULATORY - MEDICINE [facility] November 20, 2024 03:30 PM AMBULATORY - MEDICINE [facility] Dec 11, 2024 11:00 AM AMBULATORY - NONE [facility] Dec 18, 2024 08:15 AM AMBULATORY - MEDICINE [facility] Dec 18, 2024 09:15 AM AMBULATORY - MEDICINE [facility] Dec 18, 2024 11:15 AM AMBULATORY - MEDICINE [facility] Active, Pending, and Scheduled Orders This section includes a listing of several types of active, pending, and scheduled orders, including clinic medications orders, diagnostic test orders, procedure orders and consult orders; where the start date of the order is 45 days before the date of the Encounter or 45 days after the date of theEncounter. The data comes from all [facility]. Test Date/Time Test Type Test Details Facility Name Dec 11, 2024 03:47 PM Consult Order MED DERMAT OLOGY OUTPATIENT Cons Heart Nurse's Choice [facility] Dec 25, 2024 12:00 AM Laboratory - Chemi stry Order PANEL 1 [id number] SP ONCE [facility] Dec 25, 2024 12:00 AM Laboratory - Chemi stry Order BNP (KEITH) [id number] SP [facility] Lab Results: +/- 30 days of the encounter This section includes the Chemistry and Hematology Lab Results on record with [place] for the patient. Radiology Reports and Pathology Reports are provided separately, in subsequent sections. Lab Results This section contains the Chemistry/Hematology Results that were resulted 30 days before or 30 daysafter the date of the Encounter. Date/Time Source Result Type Result - Unit Interpretation Reference Range Specimen Type Comment Dec 11, 2024 12:05 PM [facility] GLYCOHEMOGLOBIN BLOOD Specimen Type: BLOOD Comment: Prediabetes: 5.7%-6.4% Diabetes: >= 6.5% [facility] guidelines for A1c interpretation: Glycemic control targets are based on Shared Decision Making between clinicians and patients. Criteria used to establish an A1c target recommendation can be found at https://www.ri. ov/qualityandpat ientsafety/ and include the use of [...] and 9.27. Ref: https://ngsp.org /CAPdata.asp. The in-house [employer] D-100 analyzer has a historical CV <= 2%. Contact the laboratory for further performance characteristics of this assay. Ordering Provider: IRASEMA GIRON Report Released Date/Time: Dec 11, 2024 11:48 AM Reporting Lab: [address] [address] Performing Lab: [address] [address] GLYCOHEMOGLOBIN 5.1 4.4-5.6 Dec 11, 2024 12:05 PM [facility] LIPID PROFILE PLASMA Specimen Type: PLASM A [...] Dec 11, 2024 11:48 AM Reporting Lab: [address] [address] Performing Lab: [address] [address] CHOLESTEROL 151 mg/dL 0-199 TRIGLYCERIDE 60 mg/dL 0-149 HDL CHOLESTEROL 72 mg/dL H 40-69 DIRECT LDL CHOL. 70 mg/dL 0-100 Dec 11, 2024 12:05 PM [facility] CBC/PLT BLOOD Specimen Type: BLOOD No comment entered. Ordering Provider: IRASEMA GIRON Report Released Date/Time: Dec 11, 2024 11:48 AM Reporting Lab: [address] [address] Performing Lab: [address] [address] WBC 8.4 10*3/uL 5.0-10.0 RBC 4.51 10*6/uL L 4.6-6.2 HGB 13.2 g/dL L 14.0-18.0 HCT 40.5 L 42.0-52.0 MCV 89.8 fL 80.0-94.0 MCH 29.3 pg 27.0-31.0 MCHC 32.6 g/dL 32.0-36.0 PLT 241 10*3/uL 150-450 MPV 10.3 fL 9.0-13.1 RDW 13.2 11.0-16.0 NRBC 0.0 0.0-0.0 Dec 11, 2024 12:05 PM [facility] PANEL 5 PLASMA Specimen Type: PLASM A [...] Dec 11, 2024 11:48 AM Reporting Lab: [address] [address] Performing Lab: [address] [address] CREATININE 0.60 mg/dL L 0.72-1.25 UREA NITROGEN [...] and tobacco- related health factors from the [place] facility where the Encounter took place. Current Smoking Status This section includes the most current smoking, or tobacco-related health factor, from the [place] facility where the Encounter took place. Date/Time Current Smoking Status Comment Facil ity Mar 18, 2023 10:00 AM VA-TOBACCO FORMER USER [facility] Tobacco Use History This section includes a history of the smoking, or tobacco-related health factors, that were collected on or before the date of the Encounter. The data comes from the [place] facility where the Encounter took place. Date/Time Smoking Status/Tobacco Use Comment F acility Mar 18, 2023 10:00 AM VA-TOBACCO QUIT 5 TO < 15 YRS [facility] Apr 30, 2022 11:00 AM VA-TOBACCO FORMER USER [facility] Apr 30, 2022 11:00 AM VA-TOBACCO QUIT 15 YRS OR MORE [facility] Apr 24, 2021 09:30 AM VA-TOBACCO FORMER USER [facility] Apr 24, 2021 09:30 AM VA-TOBACCO QUIT 5 TO < 15 YRS [facility] Feb 14, 2021 10:00 AM VA-TOBACCO FORMER USER [facility] Feb 14, 2021 10:00 AM VA-TOBACCO QUIT 15 YRS OR MORE [facility] Apr 20, 2018 11:36 AM VA-TOBACCO FORMER USER [facility] Apr 20, 2018 11:36 AM VA-TOBACCO QUIT 15 YRS OR MORE [facility] Feb 09, 2017 10:00 AM V9 QUIT TOBACCO >7 YEARS AGO [facility] Feb 11, 2015 10:54 AM V9 QUIT TOBACCO >7 YEARS AGO [facility] Mar 16, 2014 08:35 AM V9 QUIT TOBACCO >1 2 MO & <7 YRS AGO [facility] Mar 16, 2014 08:35 AM V9 TOBACCO OFFERED [facility] Advance Directives: All historical and current Section Date Range: From patient's date of to the date document was created. This section includes ALL of a patient's completed or amended [place] Advance and Rescinded Directives. The entries below indicate that a directive exists for the patient, but an actual copy is not included with this document. The data comes from all [place] facilities. Date Advance Directives Provider Source Apr 16, 2010 ADVANCE DIRECTIVE ALEXEY SHEPHERD Encounter Notes: All associated encounter notes This section contains the clinical notes associated to the Encounter. Date/Time Encounter Note(s) Provider Source November 16, 2024 10:27 AM PRIMARY CARE E & M NOTE: LOCAL TITLE: PC CARE MANAGEMENT STANDARD TITLE: PRIMARY CARE E & M NOTE DATE OF NOTE: NOVEMBER 16, 2024@10:27 ENTRY DATE: NOVEMBER 16, 2024@10:27:53 AUTHOR: NIKO SHORT EXP COSIGNER: URGENCY: STATUS: COMPLETED Advised of pcp recs in response to [facility] clinical note 11/15/2024. [place] voiced understanding and thanked RN for calling. Yes - /Caregiver verbalized understanding of topics discussed and education provided /mona/ CYRUS Neumann, RN [employer] Signed: 11/16/2024 10:29 NIKO SHORT [facility]
--- OUTSIDE RECORDS SUMMARY | 2024-11-20 10:30 | XMS_ITS | Encounter Summary ---
Author Name [facility] [place] [facility] [place] [facility] [place] Address [address] [place] [id number] Care Team Providers Care Brick Tender Name Role Phone IRASEMA GIRON Primary Care [...] PART A Jun 04, 2009 PART A [id number] [phone] [place] PATIENT MEDICARE (WNR) MEDICARE (M) PART A Jun 04, 2009 PART A [id number] [place] PATIENT MEDICARE (WNR) MEDICARE (M) PART A Jun 04, 2009 PART A [id number] [place] PATIENT MEDICARE (WNR) MEDICARE (M) PART A Jun 04, 2009 PART A [id number] [place] PATIENT MEDICARE (WNR) MEDICARE (M) PART A Jun 04, 2009 PART A [id number] [phone] [place] PATIENT Selected Encounter This section includes the information on record at [place] for the Encounter. Date/Time Encounter Type Encounter Description Reason Provider Source November 20, 2024 02:30 PM OFFICE O/P EST HI 40 MIN PULMONARY/CHEST ICD-10-CM J96.11 Chronic respiratory failure with hypoxia STEFANO GONZALEZ Brian Encounter Template Text not used by [place] Assessments - Encounter Diagnoses This section includes the primary and secondary diagnoses documented for the Encounter. 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 This section includes future appointments and future orders which are active, pending or scheduled. Future Appointments This section includes appointments that were scheduled to occur 6 months from the date of the Encounter, up to a maximum of 20 appointments. The data comes from all [facility]. Appointment Date/Time Appointment Type Appointme nt Facility Name Dec 11, 2024 11:00 AM AMBULATORY - NONE [facility] Dec 18, 2024 08:15 AM AMBULATORY - MEDICINE [facility] Dec 18, 2024 09:15 AM AMBULATORY - MEDICINE [facility] Dec 18, 2024 11:15 AM AMBULATORY - MEDICINE [facility] Active, Pending, and Scheduled Orders This section includes a listing of several types of active, pending, and scheduled orders, including clinic medications orders, diagnostic test orders, procedure orders and consult orders; where the start date of the order is 45 days before the date of the Encounter or 45 days after the date of theEncounter. The data comes from all [facility]. 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 Radiology Reports and Pathology Reports are provided separately, in subsequent sections. Lab Results This section contains the Chemistry/Hematology Results that were resulted 30 days before or 30 daysafter the date of the Encounter. Date/Time Source Result Type Result - Unit Interpretation Reference Range Specimen Type Comment Dec 11, 2024 12:05 PM [facility] GLYCOHEMOGLOBIN BLOOD Specimen Type: BLOOD Comment: Prediabetes: 5.7%-6.4% Diabetes: >= 6.5% [facility] guidelines for A1c interpretation: Glycemic control targets are based on Shared Decision Making between clinicians and patients. Criteria used to establish an A1c target recommendation can be found at https://www.or.g ov/qualityandpat ientsafety/ and include the use of [...] and 9.27. Ref: https://ngsp.org /CAPdata.asp. The in-house [employer] D-100 analyzer has a historical CV <= 2%. Contact the laboratory for further performance characteristics of this assay. Ordering Provider: IRASEMA GIRON Report Released Date/Time: Dec 11, 2024 11:48 AM Reporting Lab: [address] [address] Performing Lab: [address] [address] GLYCOHEMOGLOBIN 5.1 4.4-5.6 Dec 11, 2024 12:05 PM [facility] LIPID PROFILE PLASMA Specimen Type: [...] Dec 11, 2024 11:48 AM Reporting Lab: [address] [address] Performing Lab: [address] [address] CHOLESTEROL 151 mg/dL 0-199 TRIGLYCERIDE 60 mg/dL 0-149 HDL CHOLESTEROL 72 mg/dL H 40-69 DIRECT LDL CHOL. 70 mg/dL 0-100 Dec 11, 2024 12:05 PM [facility] CBC/PLT BLOOD Specimen Type: BLOOD No comment entered. Ordering Provider: IRASEMA GIRON Report Released Date/Time: Dec 11, 2024 11:48 AM Reporting Lab: [address] [address] Performing Lab: [address] [address] WBC 8.4 10*3/uL 5.0-10.0 RBC 4.51 10*6/uL L 4.6-6.2 HGB 13.2 g/dL L 14.0-18.0 HCT 40.5 L 42.0-52.0 MCV 89.8 fL 80.0-94.0 MCH 29.3 pg 27.0-31.0 MCHC 32.6 g/dL 32.0-36.0 PLT 241 10*3/uL 150-450 MPV 10.3 fL 9.0-13.1 RDW 13.2 11.0-16.0 NRBC 0.0 0.0-0.0 Dec 11, 2024 12:05 PM [facility] PANEL 5 PLASMA Specimen Type: [...] Dec 11, 2024 11:48 AM Reporting Lab: [address] [address] Performing Lab: [address] [address] CREATININE 0.60 mg/dL L 0.72-1.25 UREA NITROGEN [...] and tobacco- related health factors from the [place] facility where the Encounter took place. Current Smoking Status This section includes the most current smoking, or tobacco-related health factor, from the [place] facility where the Encounter took place. Date/Time Current Smoking Status Comment Zayda ity Apr 03, 2024 01:15 PM VA-TOBACCO NEVER USED [facility] Tobacco Use History This section includes a history of the smoking, or tobacco-related health factors, that were collected on or before the date of the Encounter. The data comes from the [place] facility where the Encounter took place. Date/Time Smoking Status/Tobacco Use Comment F acility Jan 21, 2016 04:53 PM NON-TOBACCO USE INPATIENT [facility] Jan 13, 2016 06:51 AM V9 QUIT TOBACCO >7 YEARS AGO [facility] Advance Directives: All historical and current Section Date Range: From patient's date of to the date document was created. This section includes ALL of a patient's completed or amended [place] Advance and Rescinded Directives. The entries below indicate that a directive exists for the patient, but an actual copy is not included with this document. The data comes from all [place] facilities. Date Advance Directives Provider Source Apr 16, 2010 ADVANCE DIRECTIVE ALEXEY [facility] Encounter Notes: All associated encounter notes This section contains the clinical notes associated to the Encounter. Date/Time Encounter Note(s) Provider Source November 24, 2024 08:59 AM ADDENDUM: LOCAL TITLE: Addendum STANDARD TITLE: ADDENDUM DATE OF NOTE: NOVEMBER 24, 2024@08:59:02 ENTRY DATE: NOVEMBER 24, 2024@08:59:04 AUTHOR: REINA LEW EXP COSIGNER: URGENCY: STATUS: COMPLETED Additional medical records received from [facility] and forwarded to medical records dept. to be uploaded into [employer]. I had requested information regarding Life Vest that was placed on pt. upon D/C from [facility], but none received. I also called the [employer] per information from . No answer. Left a HIPAA friendly voicemail message to return my call along with my contact information. Below are the phone numbers the gave me to call the [employer]. /mona/ Reina Lew RN Pulmonary Clerical Support Specialist Signed: 11/24/2024 09:04 Receipt Acknowledged By: 11/24/2024 09:57 /es/ TJ KAMARA RN --- Original Document --- 11/20/24 PULMONARY CLINIC ATTENDING PHYSICIAN NOTE: Interval history 11/20/2024: Mr. Mosher did not come to his last follow-up appointment in fellows clinic because he had been admitted to his local hospital for a pneumonia. This was August 31 - September 05, 2024 for which I am able to find a discharge summary. He says he then had a second admit to [facility] in [place] for a heart attack in mid October 2024 for which they were unable to place another stent and he says he was discharged with a LifeVest but no cardiology follow-up. Records from that discharge are not available in [employer] or [facility]. He is not currently having chest pain. He says his chronic oxygen need is at its chronic baseline. He is short of breath with just walking across the house. He continues to keep birds at his house but says that they are house in a different area of his house that he lives in. He says all of his lung issues were a combination of agent orange and COVID. He stopped his steroids on his own because he felt they did not help. He uses a nebulizer once a day and does not benefit from it. His medication list does not have any active inhalers anymore but he says he has an inhaler at home that he has been using but does not know what it was. Pulmonary Clinic Note: HPI: Mr. oMsher comes in for follow-up of chronic hypoxemic respiratory failure. He had previously been followed in [facility] by Drs. Meyer and Elsa. Per their notes for his prior pulmonary history: He was initially seen by Dr. Hunter [...] a pneumothorax and was admitted to the [place] with chest tube placement from 11/09/22 - 11/14/22. 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 At his last visit he reported feeling worse, with functional status declined due to worsening dyspnea and on 3L NC. At last visit we started Pred 40 empirically. Since then he reports feeling tremendously improved. He feels he is able to walk longer distances and do more around his house. His oxygen requirement has also ipmroved and he is now only using it with exertion. He remains on LABA/LAMA/ICS. Of note we previously trialed fasenra in early 2023 but he stopped it because he did not notice any benefit after about 2 months of use. He did pulmonary rehab sometime last year. He notes birds are still in his house though he is not working with them closely over the last couple months, but they sleep in the house in a room by the [facility]. CoMordbidities possibly related: Afib, CAD, HFmrEF, HTN, VINOD, HLD, and GERD. History of pneumothorax status post transbronchial biopsy Tobacco: Prior smoking from [id number]. 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 He has cockatoos, macaws and other exotic birds. Patient did note that he had gotten a new macaw around the time that his symptoms began. I have reviewed the Essential Medication List for Review (EMLR) within the [facility] Medicine Clinic Intake Note. Data reviewed/interpreted: Pulmonary function testing 08/29/2024: Very severe obstructive ventilatory defect with gas trapping and moderately impaired gas exchange. FEV1 0.81 (27%) FVC 1.87 (48%) TLC 106% RV 207% DLCO 48% Pulmonary function testing 05/24/2024: Severe nonreversible obstructive ventilatory defect with gas trapping and mildly impaired gas exchange. FEV1 0.96 (32%) FVC 2.19 (56%) RV 208% DLCO 65 PFT 04/2023 FEV1/FVC 48%, FEV1 0.95 (stable) Unadjusted DLCO -2.7, likely underestimated PFTs 09/03/22 FVC: 2.2(-2.81) FEV1 0.93(-3.71) [worsened] FEV1/FVC 42% TLC 7.19(+0.46) RV/T%(+4.07) DLCO: 154.45(-2.37) HRCT 10/13/22 - Diffuse interstitial thickening, no mosacisim, no GGO. Overall slightly increase in fibrotic changes since CT in 2021. LDCT 05/2023 - stable HRCT 04/2024 - relatively stable with some increase in diffuse subpleural nodularity though this may just be better demonstrated on this high res CT. Bronch 11/06/22 TBBx RUL and RLL: Alveolated lung tissue with no evidence of malignancy, granulomatous inflammation, vasculitis or viral changes. No histologic features of hypersensitivity pneumonitis seen. BAL: no evidence of malignancy, GMS negative for fungal. Alveolar macrophages, bronchial epithelial cells, and mixed inflammation. BAL: culture no growth, mycology no growth, AFB no growth No cell count Physical Exam: Cachectic white male in a wheeled chair with rapid shallow breathing on NC. Life vest on. No edema. Poor air movement overall. No wheezing nor rhonchi. 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 Either way, the care is avoidance of the birds and treating is other underlying diseases. He does have bronchiectasis and a severe obstruction on PFTs. Plan: Starting on Stiolto + Asthmanex. I don't get the impression that he benefited as much from steroids in the past as his notes imply, holding off on MMF/Imuran at this time. Continue oxygen. He now has a life vest after his most recent heart attack at [facility] that he says occurred in October 2024 and he says he has no cards follow up. I don't see a referral to cards and I don't think his PCP is aware of this either. I will see if my embedded case manager can get records from that hospital stay to help cardiology him to [facility] for heart failure management and likely need referral to EP. RTC: 3 months I spent 58 minutes, reviewing history, performing an exam and evaluation, entering clinical information in EHR, interpreting results, counseling patient/family/caregiver, reviewing x-rays/MRI/labs, ordering meds/test/procedures, referring and communicating with consulting health reproductive healthcare assistant, and care coordination. Does not include time by clerical staff. /mona/ STEFANO GONZALEZ Pulmonary / Critical Care Signed: 11/21/2024 13:39 11/21/2024 ADDENDUM STATUS: COMPLETED Jaylin, Mr. Mosher reported during his pulmonary follow-up that he was admitted to [facility] roughly 1 month ago for reported MS and says he was discharged with a LifeVest but no cardiology follow-up. I have not been able to find records of this hospitalization in [employer] nor [facility] ( I did find an admit from for pneumonia). I also do not think that his primary care provider is aware of this hospitalization. Please request discharge summary/echo/cardiac cath results from any admits that [facility] in October or November 2024 so these can be made available to cardiology. I have placed a consult to cardiology. /mona/ STEFANO GONZALEZ Pulmonary / Critical Care Signed: 11/21/2024 13:42 Receipt Acknowledged By: 11/23/2024 14:24 /es/ Reina Lew RN Pulmonary Clerical Support Specialist 11/21/2024 15:37 /es/ IRASEMA GIRON NURSE PRACTITIONER 11/23/2024 ADDENDUM STATUS: COMPLETED Meds/treatment/treatment plan discussed w/ during appt. per M.D. & voiced understanding of any changes in meds/treatment plan. [place] dismissed from clinic by provider upon completion of visit. Appt. to be scheduled & appt. letter mailed to per MD order indicating modality of appt. (face to face/VVC/CVT/telephone). If provider not available or requires overbook,alert Clerical Support Specialist & Pulmonary Provider for overbook approval. Future test results auto alerted to M.D. once completed for M.D. to review & notify of results. See M.D. note & M.D. orders for further information. - Continue oxygen. - He now has a life vest after his most recent heart attack at [facility] that he says occurred in October 2024 and he says he has no cards follow up. I don't see a referral to cards and I don't think his PCP is aware of this either. I will see if my embedded case manager can get records from that hospital stay to help cardiology him to [place] for heart failure management and likely need referral to EP. RTC: 3 months I called the [facility] office @ [facility] and spoke with Patricia and requested above medical records to be faxed to [facility] per request of Dr. Gonzalez for Cardiology provider. I will forward records to the medical records dept. to be uploaded into [employer] in [facility] for M.D. review. /mona/ Reina Lew RN Pulmonary Clerical Support Specialist Signed: 11/23/2024 13:18 Receipt Acknowledged By: 11/23/2024 13:50 /es/ TJ KAMARA RN 11/23/2024 ADDENDUM STATUS: COMPLETED [place] is followed by Dr. Ken in [facility] cards. He has upcoming appt with him scheduled. Thanks. /mona/ TJ KAMARA RN Signed: 11/23/2024 13:36 Receipt Acknowledged By: 11/23/2024 14:23 /mona/ Reina Lew RN Pulmonary Clerical Support Specialist 11/23/2024 ADDENDUM STATUS: COMPLETED Medical records received from [facility] and forwarded to medical records dept. to be scanned into [employer] in [facility] for M.D. review. D/C summary included in records along with echocardiogram results, left heart cath. results, lab results & EKG results. I called again to have information regarding LIFE VEST to be faxed to [facility]. I will forward those records to the medical records dept. to be uploaded into [employer] upon receipt. /mona/ Reina Lew RN Pulmonary Clerical Support Specialist Signed: 11/23/2024 14:54 REINA LEW-D [facility] November 23, 2024 01:35 PM ADDENDUM: LOCAL TITLE: Addendum STANDARD TITLE: ADDENDUM DATE OF NOTE: NOVEMBER 23, 2024@13:35:36 ENTRY DATE: NOVEMBER 23, 2024@13:35:37 AUTHOR: TJ KAMARA COSIGNER: URGENCY: STATUS: COMPLETED [place] is followed by Dr. Ken in [facility]. He has upcoming appt with him scheduled. Thanks. /mona/ TJ KAMARA RN Signed: 11/23/2024 13:36 Receipt Acknowledged By: 11/23/2024 14:23 /mona/ Reina Lew RN Pulmonary Clerical Support Specialist --- Original Document --- 11/20/24 PULMONARY CLINIC ATTENDING PHYSICIAN NOTE: Interval history 11/20/2024: Mr. Mosher did not come to his last follow-up appointment in fellows clinic because he had been admitted to his local hospital for a pneumonia. This was August 31 - September 05, 2024 for which I am able to find a discharge summary. He says he then had a second admit to [facility] in [place] for a heart attack in mid October 2024 for which they were unable to place another stent and he says he was discharged with a LifeVest but no cardiology follow-up. Records from that discharge are not available in [employer] or [employer]. He is not currently having chest pain. He says his chronic oxygen need is at its chronic baseline. He is short of breath with just walking across the house. He continues to keep birds at his house but says that they are house in a different area of his house that he lives in. He says all of his lung issues were a combination of agent orange and COVID. He stopped his steroids on his own because he felt they did not help. He uses a nebulizer once a day and does not benefit from it. His medication list does not have any active inhalers anymore but he says he has an inhaler at home that he has been using but does not know what it was. Pulmonary Clinic Note: HPI: Mr. Mosher comes in for follow-up of chronic hypoxemic respiratory failure. He had previously been followed in [facility] by Drs. Meyer and Elsa. Per their notes for his prior pulmonary history: He was initially seen by Dr. Hunter [...] a pneumothorax and was admitted to the [place] with chest tube placement from 11/09/22 - 11/14/22. 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 At his last visit he reported feeling worse, with functional status declined due to worsening dyspnea and on 3L NC. At last visit we started Pred 40 empirically. Since then he reports feeling tremendously improved. He feels he is able to walk longer distances and do more around his house. His oxygen requirement has also ipmroved and he is now only using it with exertion. He remains on LABA/LAMA/ICS. Of note we previously trialed fasenra in early 2023 but he stopped it because he did not notice any benefit after about 2 months of use. He did pulmonary rehab sometime last year. He notes birds are still in his house though he is not working with them closely over the last couple months, but they sleep in the house in a room by the garage. CoMordbidities possibly related: Afib, CAD, HFmrEF, HTN, VINOD, HLD, and GERD. History of pneumothorax status post transbronchial biopsy Tobacco: Prior smoking from [id number]. 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 He has cockatoos, macaws and other exotic birds. Patient did note that he had gotten a new macaw around the time that his symptoms began. I have reviewed the Essential Medication List for Review (EMLR) within the [facility] Intake Note. Data reviewed/interpreted: Pulmonary function testing 08/29/2024: Very severe obstructive ventilatory defect with gas trapping and moderately impaired gas exchange. FEV1 0.81 (27%) FVC 1.87 (48%) TLC 106% RV 207% DLCO 48% Pulmonary function testing 05/24/2024: Severe nonreversible obstructive ventilatory defect with gas trapping and mildly impaired gas exchange. FEV1 0.96 (32%) FVC 2.19 (56%) RV 208% DLCO 65 PFT 04/2023 FEV1/FVC 48%, FEV1 0.95 (stable) Unadjusted DLCO -2.7, likely underestimated PFTs 09/03/22 FVC: 2.2(-2.81) FEV1 0.93(-3.71) [worsened] FEV1/FVC 42% TLC 7.19(+0.46) RV/T%(+4.07) DLCO: 154.45(-2.37) HRCT 10/13/22 - Diffuse interstitial thickening, no mosacisim, no GGO. Overall slightly increase in fibrotic changes since CT in 2021. LDCT 05/2023 - stable HRCT 04/2024 - relatively stable with some increase in diffuse subpleural nodularity though this may just be better demonstrated on this high res CT. Bronch 11/06/22 TBBx RUL and RLL: Alveolated lung tissue with no evidence of malignancy, granulomatous inflammation, vasculitis or viral changes. No histologic features of hypersensitivity pneumonitis seen. BAL: no evidence of malignancy, GMS negative for fungal. Alveolar macrophages, bronchial epithelial cells, and mixed inflammation. BAL: culture no growth, mycology no growth, AFB no growth No cell count Physical Exam: Cachectic white male in a wheeled chair with rapid shallow breathing on NC. Life vest on. No edema. Poor air movement overall. No wheezing nor rhonchi. 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 Either way, the care is avoidance of the birds and treating is other underlying diseases. He does have bronchiectasis and a severe obstruction on PFTs. Plan: Starting on Stiolto + Asthmanex. I don't get the impression that he benefited as much from steroids in the past as his notes imply, holding off on MMF/Imuran at this time. Continue oxygen. He now has a life vest after his most recent heart attack at [facility] that he says occurred in October 2024 and he says he has no cards follow up. I don't see a referral to cards and I don't think his PCP is aware of this either. I will see if my embedded case manager can get records from that hospital stay to help cardiology him to Cards for heart failure management and likely need referral to EP. RTC: 3 months I spent 58 minutes, reviewing history, performing an exam and evaluation, entering clinical information in EHR, interpreting results, counseling patient/family/caregiver, reviewing x-rays/MRI/labs, ordering meds/test/procedures, referring and communicating with consulting health reproductive healthcare assistant, and care coordination. Does not include time by clerical staff. /es/ STEFANO GONZALEZ Pulmonary / Critical Care Signed: 11/21/2024 13:39 11/21/2024 ADDENDUM STATUS: COMPLETED Jaylin, Mr. Mosher reported during his pulmonary follow-up that he was admitted to [facility] roughly 1 month ago for reported MS and says he was discharged with a LifeVest but no cardiology follow-up. I have not been able to find records of this hospitalization in [employer] nor [employer] ( I did find an admit from for pneumonia). I also do not think that his primary care provider is aware of this hospitalization. Please request discharge summary/echo/cardiac cath results from any admits that [facility] in October or November 2024 so these can be made available to cardiology. I have placed a consult to cardiology. /es/ STEFANO GONZALEZ Pulmonary / Critical Care Signed: 11/21/2024 13:42 Receipt Acknowledged By: * AWAITING SIGNATURE * REINA LEW 11/21/2024 15:37 /es/ IRASEMA GIRON NURSE PRACTITIONER 11/23/2024 ADDENDUM STATUS: COMPLETED Meds/treatment/treatment plan discussed w/ during appt. per M.D. & voiced understanding of any changes in meds/treatment plan. [place] dismissed from clinic by provider upon completion of visit. Appt. to be scheduled & appt. letter mailed to per MD order indicating modality of appt. (face to face/VVC/CVT/telephone). If provider not available or requires overbook,alert Clerical Support Specialist & Pulmonary Provider for overbook approval. Future test results auto alerted to M.D. once completed for M.D. to review & notify of results. See M.D. note & M.D. orders for further information. - Continue oxygen. - He now has a life vest after his most recent heart attack at [facility] that he says occurred in October 2024 and he says he has no cards follow up. I don't see a referral to cards and I don't think his PCP is aware of this either. I will see if my embedded case manager can get records from that hospital stay to help cardiology him to Cards for heart failure management and likely need referral to EP. RTC: 3 months I called the HIM office @ [facility] and spoke with Patricia and requested above medical records to be faxed to [facility] per request of Dr. Gonzalez for Cardiology provider. I will forward records to the medical records dept. to be uploaded into [employer] in [place] for M.D. review. /es/ Reina Lew RN Pulmonary Clerical Support Specialist Signed: 11/23/2024 13:18 Receipt Acknowledged By: 11/23/2024 13:50 /es/ TJ MARCELO RN-CDD [facility] November 23, 2024 01:14 PM ADDENDUM: LOCAL TITLE: Addendum STANDARD TITLE: ADDENDUM DATE OF NOTE: NOVEMBER 23, 2024@13:14:25 ENTRY DATE: NOVEMBER 23, 2024@13:14:26 AUTHOR: REINA LEW EXP COSIGNER: URGENCY: STATUS: COMPLETED Meds/treatment/treatment plan discussed w/ during appt. per M.D. & voiced understanding of any changes in meds/treatment plan. dismissed from clinic by provider upon completion of visit. Appt. to be scheduled & appt. letter mailed to per MD order indicating modality of appt. (face to face/VVC/CVT/telephone). If provider not available or requires overbook,alert Clerical Support Specialist & Pulmonary Provider for overbook approval. Future test results auto alerted to M.D. once completed for M.D. to review & notify of results. See M.D. note & M.D. orders for further information. - Continue oxygen. - He now has a life vest after his most recent heart attack at [facility] that he says occurred in October 2024 and he says he has no cards follow up. I don't see a referral to cards and I don't think his PCP is aware of this either. I will see if my embedded case manager can get records from that hospital stay to help cardiology him to Cards for heart failure management and likely need referral to EP. RTC: 3 months I called the HIM office @ [facility] and spoke with Patricia and requested above medical records to be faxed to [facility] per request of Dr. Gonzalez for Cardiology provider. I will forward records to the medical records dept. to be uploaded into [facility] in [place] for M.D. review. /es/ Reina Lew RN Pulmonary Clerical Support Specialist Signed: 11/23/2024 13:18 Receipt Acknowledged By: 11/23/2024 13:50 /es/ TJ KAMARA RN --- Original Document --- 11/20/24 PULMONARY CLINIC ATTENDING PHYSICIAN NOTE: Interval history 11/20/2024: Mr. Mosher did not come to his last follow-up appointment in fellows clinic because he had been admitted to his local hospital for a pneumonia. This was August 31 - September 05, 2024 for which I am able to find a discharge summary. He says he then had a second admit to [facility] in [place] for a heart attack in mid October 2024 for which they were unable to place another stent and he says he was discharged with a LifeVest but no cardiology follow-up. Records from that discharge are not available in [employer] or [employer]. He is not currently having chest pain. He says his chronic oxygen need is at its chronic baseline. He is short of breath with just walking across the house. He continues to keep birds at his house but says that they are house in a different area of his house that he lives in. He says all of his lung issues were a combination of agent orange and COVID. He stopped his steroids on his own because he felt they did not help. He uses a nebulizer once a day and does not benefit from it. His medication list does not have any active inhalers anymore but he says he has an inhaler at home that he has been using but does not know what it was. Pulmonary Clinic Note: HPI: Mr. Mosher comes in for follow-up of chronic hypoxemic respiratory failure. He had previously been followed in [facility] by Drs. Meyer and Elsa. Per their notes for his prior pulmonary history: He was initially seen by Dr. Hunter [...] a pneumothorax and was admitted to the [place] with chest tube placement from 11/09/22 - 11/14/22. 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 At his last visit he reported feeling worse, with functional status declined due to worsening dyspnea and on 3L NC. At last visit we started Pred 40 empirically. Since then he reports feeling tremendously improved. He feels he is able to walk longer distances and do more around his house. His oxygen requirement has also ipmroved and he is now only using it with exertion. He remains on LABA/LAMA/ICS. Of note we previously trialed fasenra in early 2023 but he stopped it because he did not notice any benefit after about 2 months of use. He did pulmonary rehab sometime last year. He notes birds are still in his house though he is not working with them closely over the last couple months, but they sleep in the house in a room by the [facility]. CoMordbidities possibly related: Afib, CAD, HFmrEF, HTN, VINOD, HLD, and GERD. History of pneumothorax status post transbronchial biopsy Tobacco: Prior smoking from [id number]. 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 He has cockatoos, macaws and other exotic birds. Patient did note that he had gotten a new macaw around the time that his symptoms began. I have reviewed the Essential Medication List for Review (EMLR) within the [facility] Medicine Clinic Intake Note. Data reviewed/interpreted: Pulmonary function testing 08/29/2024: Very severe obstructive ventilatory defect with gas trapping and moderately impaired gas exchange. FEV1 0.81 (27%) FVC 1.87 (48%) TLC 106% RV 207% DLCO 48% Pulmonary function testing 05/24/2024: Severe nonreversible obstructive ventilatory defect with gas trapping and mildly impaired gas exchange. FEV1 0.96 (32%) FVC 2.19 (56%) RV 208% DLCO 65 PFT 04/2023 FEV1/FVC 48%, FEV1 0.95 (stable) Unadjusted DLCO -2.7, likely underestimated PFTs 09/03/22 FVC: 2.2(-2.81) FEV1 0.93(-3.71) [worsened] FEV1/FVC 42% TLC 7.19(+0.46) RV/T%(+4.07) DLCO: 154.45(-2.37) HRCT 10/13/22 - Diffuse interstitial thickening, no mosacisim, no GGO. Overall slightly increase in fibrotic changes since CT in 2021. LDCT 05/2023 - stable HRCT 04/2024 - relatively stable with some increase in diffuse subpleural nodularity though this may just be better demonstrated on this high res CT. Bronch 11/06/22 TBBx RUL and RLL: Alveolated lung tissue with no evidence of malignancy, granulomatous inflammation, vasculitis or viral changes. No histologic features of hypersensitivity pneumonitis seen. BAL: no evidence of malignancy, GMS negative for fungal. Alveolar macrophages, bronchial epithelial cells, and mixed inflammation. BAL: culture no growth, mycology no growth, AFB no growth No cell count Physical Exam: Cachectic white male in a wheeled chair with rapid shallow breathing on NC. Life vest on. No edema. Poor air movement overall. No wheezing nor rhonchi. 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 Either way, the care is avoidance of the birds and treating is other underlying diseases. He does have bronchiectasis and a severe obstruction on PFTs. Plan: Starting on Stiolto + Asthmanex. I don't get the impression that he benefited as much from steroids in the past as his notes imply, holding off on MMF/Imuran at this time. Continue oxygen. He now has a life vest after his most recent heart attack at [facility] that he says occurred in October 2024 and he says he has no cards follow up. I don't see a referral to cards and I don't think his PCP is aware of this either. I will see if my embedded case manager can get records from that hospital stay to help cardiology him to Cards for heart failure management and likely need referral to EP. RTC: 3 months I spent 58 minutes, reviewing history, performing an exam and evaluation, entering clinical information in EHR, interpreting results, counseling patient/family/caregiver, reviewing x-rays/MRI/labs, ordering meds/test/procedures, referring and communicating with consulting health reproductive healthcare assistant, and care coordination. Does not include time by clerical staff. /mona/ STEFANO GONZALEZ Pulmonary / Critical Care Signed: 11/21/2024 13:39 11/21/2024 ADDENDUM STATUS: COMPLETED Jaylin, Mr. Mosher reported during his pulmonary follow-up that he was admitted to [facility] roughly 1 month ago for reported MS and says he was discharged with a LifeVest but no cardiology follow-up. I have not been able to find records of this hospitalization in [employer] nor [facility] ( I did find an admit from for pneumonia). I also do not think that his primary care provider is aware of this hospitalization. Please request discharge summary/echo/cardiac cath results from any admits that [facility] in October or November 2024 so these can be made available to cardiology. I have placed a consult to cardiology. /es/ STEFANO GONZALEZ Pulmonary / Critical Care Signed: 11/21/2024 13:42 Receipt Acknowledged By: * AWAITING SIGNATURE * REINA LEW 11/21/2024 15:37 /es/ IRASEMA GIRON NURSE PRACTITIONER 11/23/2024 ADDENDUM STATUS: COMPLETED [place] is followed by Dr. Ken in [facility]. He has upcoming appt with him scheduled. Thanks. /es/ TJ KAMARA RN Signed: 11/23/2024 13:36 Receipt Acknowledged By: * AWAITING SIGNATURE * REINA LEW PAMELA L [place]-CDD [facility] November 21, 2024 01:40 PM ADDENDUM: LOCAL TITLE: Addendum STANDARD TITLE: ADDENDUM DATE OF NOTE: NOVEMBER 21, 2024@13:40:09 ENTRY DATE: NOVEMBER 21, 2024@13:40:10 AUTHOR: STEFANO GONZALEZ EXP COSIGNER: URGENCY: STATUS: COMPLETED Jaylin, Mr. Mosher reported during his pulmonary follow-up that he was admitted to [facility] roughly 1 month ago for reported MS and says he was discharged with a LifeVest but no cardiology follow-up. I have not been able to find records of this hospitalization in [facility] nor [facility] ( I did find an admit from for pneumonia). I also do not think that his primary care provider is aware of this hospitalization. Please request discharge summary/echo/cardiac cath results from any admits that [facility] in October or November 2024 so these can be made available to cardiology. I have placed a consult to cardiology. /es/ STEFANO GONZALEZ Pulmonary / Critical Care Signed: 11/21/2024 13:42 Receipt Acknowledged By: 11/23/2024 14:24 /es/ Reina Lew RN Pulmonary Clerical Support Specialist 11/21/2024 15:37 /es/ IRASEMA GIRON NURSE PRACTITIONER --- Original Document --- 11/20/24 PULMONARY CLINIC ATTENDING PHYSICIAN NOTE: Interval history 11/20/2024: Mr. Mosher did not come to his last follow-up appointment in fellows clinic because he had been admitted to his local hospital for a pneumonia. This was August 31 - September 05, 2024 for which I am able to find a discharge summary. He says he then had a second admit to [facility] in [place] for a heart attack in mid October 2024 for which they were unable to place another stent and he says he was discharged with a LifeVest but no cardiology follow-up. Records from that discharge are not available in [employer] or [employer]. He is not currently having chest pain. He says his chronic oxygen need is at its chronic baseline. He is short of breath with just walking across the house. He continues to keep birds at his house but says that they are house in a different area of his house that he lives in. He says all of his lung issues were a combination of agent orange and COVID. He stopped his steroids on his own because he felt they did not help. He uses a nebulizer once a day and does not benefit from it. His medication list does not have any active inhalers anymore but he says he has an inhaler at home that he has been using but does not know what it was. Pulmonary Clinic Note: HPI: Mr. Mosher comes in for follow-up of chronic hypoxemic respiratory failure. He had previously been followed in [facility] by Drs. Meyer and Elsa. Per their notes for his prior pulmonary history: He was initially seen by Dr. Hunter [...] a pneumothorax and was admitted to the [place] with chest tube placement from 11/09/22 - 11/14/22. 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 At his last visit he reported feeling worse, with functional status declined due to worsening dyspnea and on 3L NC. At last visit we started Pred 40 empirically. Since then he reports feeling tremendously improved. He feels he is able to walk longer distances and do more around his house. His oxygen requirement has also ipmroved and he is now only using it with exertion. He remains on LABA/LAMA/ICS. Of note we previously trialed fasenra in early 2023 but he stopped it because he did not notice any benefit after about 2 months of use. He did pulmonary rehab sometime last year. He notes birds are still in his house though he is not working with them closely over the last couple months, but they sleep in the house in a room by the [facility]. CoMordbidities possibly related: Afib, CAD, HFmrEF, HTN, VINOD, HLD, and GERD. History of pneumothorax status post transbronchial biopsy Tobacco: Prior smoking from [id number]. 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 He has cockatoos, macaws and other exotic birds. Patient did note that he had gotten a new macaw around the time that his symptoms began. I have reviewed the Essential Medication List for Review (EMLR) within the [facility] Medicine Clinic Intake Note. Data reviewed/interpreted: Pulmonary function testing 08/29/2024: Very severe obstructive ventilatory defect with gas trapping and moderately impaired gas exchange. FEV1 0.81 (27%) FVC 1.87 (48%) TLC 106% RV 207% DLCO 48% Pulmonary function testing 05/24/2024: Severe nonreversible obstructive ventilatory defect with gas trapping and mildly impaired gas exchange. FEV1 0.96 (32%) FVC 2.19 (56%) RV 208% DLCO 65 PFT 04/2023 FEV1/FVC 48%, FEV1 0.95 (stable) Unadjusted DLCO -2.7, likely underestimated PFTs 09/03/22 FVC: 2.2(-2.81) FEV1 0.93(-3.71) [worsened] FEV1/FVC 42% TLC 7.19(+0.46) RV/T%(+4.07) DLCO: 154.45(-2.37) HRCT 10/13/22 - Diffuse interstitial thickening, no mosacisim, no GGO. Overall slightly increase in fibrotic changes since CT in 2021. LDCT 05/2023 - stable HRCT 04/2024 - relatively stable with some increase in diffuse subpleural nodularity though this may just be better demonstrated on this high res CT. Bronch 11/06/22 TBBx RUL and RLL: Alveolated lung tissue with no evidence of malignancy, granulomatous inflammation, vasculitis or viral changes. No histologic features of hypersensitivity pneumonitis seen. BAL: no evidence of malignancy, GMS negative for fungal. Alveolar macrophages, bronchial epithelial cells, and mixed inflammation. BAL: culture no growth, mycology no growth, AFB no growth No cell count Physical Exam: Cachectic white male in a wheeled chair with rapid shallow breathing on NC. Life vest on. No edema. Poor air movement overall. No wheezing nor rhonchi. 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 Either way, the care is avoidance of the birds and treating is other underlying diseases. He does have bronchiectasis and a severe obstruction on PFTs. Plan: Starting on Stiolto + Asthmanex. I don't get the impression that he benefited as much from steroids in the past as his notes imply, holding off on MMF/Imuran at this time. Continue oxygen. He now has a life vest after his most recent heart attack at [facility] that he says occurred in October 2024 and he says he has no cards follow up. I don't see a referral to cards and I don't think his PCP is aware of this either. I will see if my embedded case manager can get records from that hospital stay to help cardiology him to Cards for heart failure management and likely need referral to EP. RTC: 3 months I spent 58 minutes, reviewing history, performing an exam and evaluation, entering clinical information in EHR, interpreting results, counseling patient/family/caregiver, reviewing x-rays/MRI/labs, ordering meds/test/procedures, referring and communicating with consulting health reproductive healthcare assistant, and care coordination. Does not include time by clerical staff. /es/ STEFANO GONZALEZ Pulmonary / Critical Care Signed: 11/21/2024 13:39 11/23/2024 ADDENDUM STATUS: COMPLETED Meds/treatment/treatment plan discussed w/ during appt. per M.D. & voiced understanding of any changes in meds/treatment plan. dismissed from clinic by provider upon completion of visit. Appt. to be scheduled & appt. letter mailed to per MD order indicating modality of appt. (face to face/VVC/CVT/telephone). If provider not available or requires overbook,alert Clerical Support Specialist & Pulmonary Provider for overbook approval. Future test results auto alerted to M.D. once completed for M.D. to review & notify of results. See M.D. note & M.D. orders for further information. - Continue oxygen. - He now has a life vest after his most recent heart attack at [facility] that he says occurred in October 2024 and he says he has no cards follow up. I don't see a referral to cards and I don't think his PCP is aware of this either. I will see if my embedded case manager can get records from that hospital stay to help cardiology him to Cards for heart failure management and likely need referral to EP. RTC: 3 months I called the HIM office @ [facility] and spoke with Patricia and requested above medical records to be faxed to [facility] per request of Dr. Gonzalez for Cardiology provider. I will forward records to the medical records dept. to be uploaded into [employer] in [place] for M.D. review. /es/ Reina Lew RN Pulmonary Clerical Support Specialist Signed: 11/23/2024 13:18 Receipt Acknowledged By: 11/23/2024 13:50 /es/ TJ KAMARA RN 11/23/2024 ADDENDUM STATUS: COMPLETED [place] is followed by Dr. Ken in [facility]. He has upcoming appt with him scheduled. Thanks. /mona/ TJ KAMARA RN Signed: 11/23/2024 13:36 Receipt Acknowledged By: 11/23/2024 14:23 /mona/ Reina Lew RN Pulmonary Clerical Support Specialist 11/23/2024 ADDENDUM STATUS: UNSIGNED You may not VIEW this UNSIGNED Addendum. STEFANO GONZALEZ-Leona [facility] November 20, 2024 03:36 PM PULMONARY ATTENDIN G OUTPATIENT NOTE: LOCAL TITLE: PULMONARY CLINIC ATTENDING PHYSICIAN NOTE STANDARD TITLE: PULMONARY ATTENDING OUTPATIENT NOTE DATE OF NOTE: NOVEMBER 20, 2024@15:36 ENTRY DATE: NOVEMBER 20, 2024@15:36:26 AUTHOR: STEFANO GONZALEZ EXP COSIGNER: URGENCY: STATUS: COMPLETED PULMONARY CLINIC ATTENDING PHYSICIAN NOTE Has ADDENDA Interval history 11/20/2024: Mr. Mosher did not come to his last follow-up appointment in fellows clinic because he had been admitted to his local hospital for a pneumonia. This was August 31 - September 05, 2024 for which I am able to find a discharge summary. He says he then had a second admit to [facility] in [place] for a heart attack in mid October 2024 for which they were unable to place another stent and he says he was discharged with a LifeVest but no cardiology follow-up. Records from that discharge are not available in [employer] or [employer]. He is not currently having chest pain. He says his chronic oxygen need is at its chronic baseline. He is short of breath with just walking across the house. He continues to keep birds at his house but says that they are house in a different area of his house that he lives in. He says all of his lung issues were a combination of agent orange and COVID. He stopped his steroids on his own because he felt they did not help. He uses a nebulizer once a day and does not benefit from it. His medication list does not have any active inhalers anymore but he says he has an inhaler at home that he has been using but does not know what it was. Pulmonary Clinic Note: HPI: Mr. Mosher comes in for follow-up of chronic hypoxemic respiratory failure. He had previously been followed in [facility] by Drs. Meyer and Elsa. Per their notes for his prior pulmonary history: He was initially seen by Dr. Hunter [...] a pneumothorax [facility]14[facility]. 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 At his last visit he reported feeling worse, with functional status declined due to worsening dyspnea and on 3L NC. At last visit we started Pred 40 empirically. Since then he reports feeling tremendously improved. He feels he is able to walk longer distances and do more around his house. His oxygen requirement has also ipmroved and he is now only using it with exertion. He remains on LABA/LAMA/ICS. Of note we previously trialed fasenra in early 2023 but he stopped it because he did not notice any benefit after about 2 months of use. He did pulmonary rehab sometime last year. He notes birds are still in his house though he is not working with them closely over the last couple months, but they sleep in the house in a room by the vy. CoMordbidities possibly related: Afib, CAD, HFmrEF, HTN, VINOD, HLD, and GERD. History of pneumothorax status post transbronchial biopsy Tobacco: Prior smoking from [id number]. 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 He has cockatoos, macaws and other exotic birds. Patient did note that he had gotten a new macaw around the time that his symptoms began. I have reviewed the Essential Medication List for Review (EMLR) within the [facility] Intake Note. Data reviewed/interpreted: Pulmonary function testing 08/29/2024: Very severe obstructive ventilatory defect with gas trapping and moderately impaired gas exchange. FEV1 0.81 (27%) FVC 1.87 (48%) TLC 106% RV 207% DLCO 48% Pulmonary function testing 05/24/2024: Severe nonreversible obstructive ventilatory defect with gas trapping and mildly impaired gas exchange. FEV1 0.96 (32%) FVC 2.19 (56%) RV 208% DLCO 65 PFT 04/2023 FEV1/FVC 48%, FEV1 0.95 (stable) Unadjusted DLCO -2.7, likely underestimated PFTs 09/03/22 FVC: 2.2(-2.81) FEV1 0.93(-3.71) [worsened] FEV1/FVC 42% TLC 7.19(+0.46) RV/T%(+4.07) DLCO: 154.45(-2.37) HRCT 10/13/22 - Diffuse interstitial thickening, no mosacisim, no GGO. Overall slightly increase in fibrotic changes since CT in 2021. LDCT 05/2023 - stable HRCT 04/2024 - relatively stable with some increase in diffuse subpleural nodularity though this may just be better demonstrated on this high res CT. Bronch 11/06/22 TBBx RUL and RLL: Alveolated lung tissue with no evidence of malignancy, granulomatous inflammation, vasculitis or viral changes. No histologic features of hypersensitivity pneumonitis seen. BAL: no evidence of malignancy, GMS negative for fungal. Alveolar macrophages, bronchial epithelial cells, and mixed inflammation. BAL: culture no growth, mycology no growth, AFB no growth No cell count Physical Exam: Cachectic white male in a wheeled chair with rapid shallow breathing on NC. Life vest on. No edema. Poor air movement overall. No wheezing nor rhonchi. 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 Either way, the care is avoidance of the birds and treating is other underlying diseases. He does have bronchiectasis and a severe obstruction on PFTs. Plan: Starting on Stiolto + Asthmanex. I don't get the impression that he benefited as much from steroids in the past as his notes imply, holding off on MMF/Imuran at this time. Continue oxygen. He now has a life vest after his most recent heart attack at [facility] that he says occurred in October 2024 and he says he has no cards follow up. I don't see a referral to cards and I don't think his PCP is aware of this either. I will see if my embedded case manager can get records from that hospital stay to help cardiology him to Cards for heart failure management and likely need referral to EP. RTC: 3 months I spent 58 minutes, reviewing history, performing an exam and evaluation, entering clinical information in EHR, interpreting results, counseling patient/family/caregiver, reviewing x-rays/MRI/labs, ordering meds/test/procedures, referring and communicating with consulting health reproductive healthcare assistant, and care coordination. Does not include time by clerical staff. /es/ STEFANO GONZALEZ Pulmonary / Critical Care Signed: 11/21/2024 13:39 11/21/2024 ADDENDUM STATUS: COMPLETED Jaylin, Mr. Mosher reported during his pulmonary follow-up that he was admitted to [facility] roughly 1 month ago for reported MS and says he was discharged with a LifeVest but no cardiology follow-up. I have not been able to find records of this hospitalization in [facility] nor [facility] ( I did find an admit from for pneumonia). I also do not think that his primary care provider is aware of this hospitalization. Please request discharge summary/echo/cardiac cath results from any admits that [facility] in October or November 2024 so these can be made available to cardiology. I have placed a consult to cardiology. /es/ STEFANO GONZALEZ Pulmonary / Critical Care Signed: 11/21/2024 13:42 Receipt Acknowledged By: 11/23/2024 14:24 /es/ Reina Lew RN Pulmonary Clerical Support Specialist 11/21/2024 15:37 /es/ IRASEMA GIRON NURSE PRACTITIONER 11/23/2024 ADDENDUM STATUS: COMPLETED Meds/treatment/treatment plan discussed w/ during appt. per M.D. & voiced understanding of any changes in meds/treatment plan. [place] dismissed from clinic by provider upon completion of visit. Appt. to be scheduled & appt. letter mailed to per MD order indicating modality of appt. (face to face/VVC/CVT/telephone). If provider not available or requires overbook,alert Clerical Support Specialist & Pulmonary Provider for overbook approval. Future test results auto alerted to M.D. once completed for M.D. to review & notify of results. See M.D. note & M.D. orders for further information. - Continue oxygen. - He now has a life vest after his most recent heart attack at [facility] that he says occurred in October 2024 and he says he has no cards follow up. I don't see a referral to cards and I don't think his PCP is aware of this either. I will see if my embedded case manager can get records from that hospital stay to help cardiology him to Cards for heart failure management and likely need referral to EP. RTC: 3 months I called the HIM office @ [facility] and spoke with Patricia and requested above medical records to be faxed to [facility] per request of Dr. Gonzalez for Cardiology provider. I will forward records to the medical records dept. to be uploaded into [facility] in [facility] for M.D. review. /mona/ Reina Lew RN Pulmonary Clerical Support Specialist Signed: 11/23/2024 13:18 Receipt Acknowledged By: 11/23/2024 13:50 /mona/ TJ KAMARA RN 11/23/2024 ADDENDUM STATUS: COMPLETED [place] is followed by Dr. Ken in gen cards. He has upcoming appt with him scheduled. Thanks. /mona/ TJ KAMARA RN Signed: 11/23/2024 13:36 Receipt Acknowledged By: 11/23/2024 14:23 /mona/ Reina Lew RN Pulmonary Clerical Support Specialist 11/23/2024 ADDENDUM STATUS: COMPLETED Medical records received from [facility] and forwarded to medical records dept. to be scanned into [facility] in [facility] for M.D. review. D/C summary included in records along with echocardiogram results, left heart cath. results, lab results & EKG results. I called again to have information regarding LIFE VEST to be faxed to [facility]. I will forward those records to the medical records dept. to be uploaded into [facility] upon receipt. /mona/ Reina Lew RN Pulmonary Clerical Support Specialist Signed: 11/23/2024 14:54 11/24/2024 ADDENDUM STATUS: COMPLETED Additional medical records received from [facility] and forwarded to medical records dept. to be uploaded into [facility]. I had requested information regarding Life Vest that was placed on pt. upon D/C from [facility], but none received. I also called the [employer] [facility] per information from . No answer. Left a HIPAA friendly voicemail message to return my call along with my contact information. Below are the phone numbers the gave me to call the [employer]. /es/ Reina Lew RN Pulmonary Clerical Support Specialist Signed: 11/24/2024 09:04 Receipt Acknowledged By: * AWAITING SIGNATURE * TJ KAMARA,STEFANO GAFFNEY-CDD [facility] November 20, 2024 03:03 PM NURSING OUTPATIENT NOTE: LOCAL TITLE: [facility] INTAKE NOTE STANDARD TITLE: NURSING OUTPATIENT NOTE DATE OF NOTE: NOVEMBER 20, 2024@15:03 ENTRY DATE: NOVEMBER 20, 2024@15:03:32 AUTHOR: NORRIS WALKER EXP COSIGNER: URGENCY: STATUS: COMPLETED Reason for visit/chief complaint: B/P: 115/64 (11/20/2024 15:02) P: 79 (11/20/2024 15:02) R: 20 (04/03/2024 13:33) T: 98.6 F [37.0 C] (11/20/2024 15:02) HT: 69.0 in [175.3 cm] (04/03/2024 13:33) WT: 132 lb [59.87 kg] (11/20/2024 15:02) Are you having any pain or recurrent pain in the last several weeks/months? Yes Severity Scale (10) Location: Lt. lateral leg Duration: 1 month Characteristics: Pain education material offered to patient (for pain > 3) No Risk factors history: Hypertension Yes Have you taken your blood pressure medication today? Yes Do you have a BP cuff at home? Yes Does the home BP cuff work and is used at home? Yes What does your blood pressure run at home? BP Rechecked: No Manual blood pressure taken: No Primary Care paralegal assistant notified of elevated BP greater of 140/90: Patient notified executive compensation analyst available upon request for any examinations/procedures. The patient was given a list of his/her medications, instructed to review and discuss any changes or problems with their provider. Patient advised to carry a list of current medications and any allergies with them in the event of emergency situations. Allergies: local and remote LISINOPRIL FACILITY ALLERGY/ADR -------- 516^Hunter VERMA DEPT OF [facility]^516 VACCINES Medication Reconciliation ACTIVE OUTPATIENT MEDICATIONS LOCAL/REMOTE ALBUTEROL 90MCG (CFC-F) 200D ORAL INHL Directions: INHALE 2 PUFFS BY INHALATION EVERY 4 HOURS NEEDED FOR WHEEZING, COUGHING OR SHORTNESS OF BREATH Quantity: 3 for 90 days Issued: 03/09/24 Filled: 10/23/24 Expires: 03/10/25 Refills: 1 Status: ACTIVE AMLODIPINE BESYLATE 5MG TAB Directions: TAKE ONE TABLET BY MOUTH DAILY FOR HIGH BLOOD PRESSURE -DO NOT DRINK GRAPEFRUIT JUICE WHILE ON THIS DRUG Quantity: 90 for 90 days Issued: 04/03/24 Filled: 04/04/24 Expires: 04/04/25 Refills: 3 Status: ACTIVE APIXABAN 5MG TAB Directions: TAKE ONE TABLET BY MOUTH TWICE A DAY TO THIN BLOOD. CALL ANTICOAGULATION CLINIC [phone] WITH QUESTIONS OR CONCERNS Quantity: 180 for 90 days Issued: 07/31/24 Filled: 08/01/24 Expires: 08/01/25 Refills: 3 Status: ACTIVE ARTIFICIAL TEARS POLYVINYL ALCOHOL Directions: PUT 1 DROP IN EYE(S) DIRECTED FOR DRY EYES Quantity: 15 for 30 days Issued: 11/15/24 Filled: 11/17/24 Expires: 11/16/25 Refills: 1 Status: ACTIVE NITROGLYCERIN 0.4MG SL TAB BTL 25 Directions: DISSOLVE ONE TABLET UNDER THE TONGUE EVERY 5 MINUTES UP TO 3 DOSES FOR CHEST PAIN -IF NO RELIEF CALL 911 Quantity: 1 for 30 days Issued: 07/31/24 Filled: 08/21/24 Expires: 08/01/25 Refills: 2 Status: ACTIVE No remote medications [...] 01/27/24 Expires: 12/09/24 Refills: 3 Status: DISCONTINUED CLINIC MEDICATIONS (LOCAL): No local medications found. Reviewed current medications with patient/signficant other, patient/significant other reports patient taking ALL VA, Non VA & OTC medications as listed on [facility] medication list provided. Vet provided medication list to review prior to appointment and physician will update this medication list with any changes at time of visit. Yes *Printed copy of medication list provided to patient and reviewed. Yes *Explained to the patient the importance of keeping providers updated on medication changes and to carrying an updated list of medication at all times in case of an emergency situation. Yes Suicide Screen: C-SSRS Screening Prentice Suicide Severity Rating Scale (C-SSRS) screener 1. Over the past month, have you wished you were or wished you could go to sleep and not wake up? No 2. Over the past month, have you had any actual thoughts of killing yourself? No 3. Over the past month, have you been thinking about how you might do this? Response not required due to responses to other questions. 4. Over the past month, have you had these thoughts and had some intention of acting on them? Response not required due to responses to other questions. 5. Over the past month, have you started to work out or worked out the details of how to kill yourself? Response not required due to responses to other questions. 6. If yes, at any time in the past month did you intend to carry out this plan? Response not required due to responses to other questions. 7. In your lifetime, have you ever done anything, started to do anything, or prepared to do anything to end your life (for example, collected pills, obtained a gun, gave away valuables, went to the roof but didn't jump)? No 8. If YES, was this within the past 3 months? Response not required due to responses to other questions. /mona/ NORRIS WALKER Licensed Practical Nurse Signed: 11/20/2024 15:05 NORRIS WALKER-ALL [facility]
--- OUTSIDE RECORDS SUMMARY | 2024-11-20 11:30 | XMS_ITS ---
Author Name [facility] Address [address] [place] [address] Care Team Providers Care Hammer Smith Name Role Phone IRASEMA GIRON Primary Care [...] PART A Jun 04, 2009 PART A [id number] [phone] [place] PATIENT MEDICARE (WNR) MEDICARE (M) PART A Jun 04, 2009 PART A [id number] [phone] [place] PATIENT MEDICARE (WNR) MEDICARE (M) PART A Jun 04, 2009 PART A [id number] [phone] [place] PATIENT MEDICARE (WNR) MEDICARE (M) PART A Jun 04, 2009 PART A [id number] [place] PATIENT MEDICARE (WNR) MEDICARE (M) PART A Jun 04, 2009 PART A [id number] [phone] [place] PATIENT Selected Encounter This section includes the information on record at [place] for the Encounter. Date/Time Encounter Type Encounter Description Reason Provider Source November 20, 2024 03:30 PM EVALUATE PT USE OF INHALER RESPIRATORY THERAPY ICD-10-CM J44.9 Chronic obstructive pulmonary disease, unspecified ADRIAMIKKI EDGAR Brian Encounter Template Text not used by [place] Assessments - Encounter Diagnoses This section includes the primary and secondary diagnoses documented for the Encounter. Date/Time Primary/Secondary Diagnosis Diagnosis Name Provider Source November 20, 2024 03:52 PM PRIMARY Chronic obstructive pulmonary disease, unspecified ADRIAMIKKI EDGAR-ALISSON [place] [facility] Plan of Treatment: Future Appointments (+ 6 months) and Future Tests (+/- 45 days) The Plan of Treatment section includes future care activities for the patient from all [facility] This section includes future appointments and future orders which are active, pending or scheduled. Future Appointments This section includes appointments that were scheduled to occur 6 months from the date of the Encounter, up to a maximum of 20 appointments. The data comes from all [facility]. Appointment Date/Time Appointment Type Appointme nt Facility Name Dec 11, 2024 11:00 AM [facility] Dec 18, 2024 08:15 AM AMBULATORY - MEDICINE [facility] Dec 18, 2024 09:15 AM AMBULATORY - MEDICINE [facility] Dec 18, 2024 11:15 AM AMBULATORY - MEDICINE [facility] Active, Pending, and Scheduled Orders This section includes a listing of several types of active, pending, and scheduled orders, including clinic medications orders, diagnostic test orders, procedure orders and consult orders; where the start date of the order is 45 days before the date of the Encounter or 45 days after the date of theEncounter. The data comes from all [facility]. Test Date/Time Test Type Test Details Facility Name Dec 11, 2024 03:47 PM Consult Order MED DERMAT OLOGY OUTPATIENT Cons Roll On Worker's Choice [facility] Dec 25, 2024 12:00 AM Laboratory - Chemi stry Order PANEL 1 [id number] SP ONCE [facility] Dec 25, 2024 12:00 AM Laboratory - Chemi stry Order BNP (KEITH) [id number] SP [facility] Lab Results: +/- 30 days of the encounter This section includes the Chemistry and Hematology Lab Results on record with [place] for the patient. Radiology Reports and Pathology Reports are provided separately, in subsequent sections. Lab Results This section contains the Chemistry/Hematology Results that were resulted 30 days before or 30 daysafter the date of the Encounter. Date/Time Source Result Type Result - Unit Interpretation Reference Range Specimen Type Comment Dec 11, 2024 12:05 PM [facility] GLYCOHEMOGLOBIN BLOOD Specimen Type: BLOOD Comment: Prediabetes: 5.7%-6.4% Diabetes: >= 6.5% [facility] guidelines for A1c interpretation: Glycemic control targets [...] and 9.27. Ref: https://ngsp.org /CAPdata.asp. The in-house real trends-Meetyl D-100 analyzer has a historical CV <= 2%. Contact the laboratory for further performance characteristics of this assay. Ordering Provider: IRASEMA GIRON Report Released Date/Time: Dec 11, 2024 11:48 AM Reporting Lab: [address] [id number] Performing Lab: [address] [id number] GLYCOHEMOGLOBIN 5.1 4.4-5.6 Dec 11, 2024 12:05 PM [facility] LIPID PROFILE PLASMA Specimen Type: PLASM A [...] Dec 11, 2024 11:48 AM Reporting Lab: [address] [phone] Performing Lab: [address] [address] CHOLESTEROL 151 mg/dL 0-199 TRIGLYCERIDE 60 mg/dL 0-149 HDL CHOLESTEROL 72 mg/dL H 40-69 DIRECT LDL CHOL. 70 mg/dL 0-100 Dec 11, 2024 12:05 PM [facility] CBC/PLT BLOOD Specimen Type: BLOOD No comment entered. Ordering Provider: IRASEMA GIRON Report Released Date/Time: Dec 11, 2024 11:48 AM Reporting Lab: [address] [id number] Performing Lab: [facility] [address] [facility] [id number] WBC 8.4 10*3/uL 5.0-10.0 RBC 4.51 10*6/uL L 4.6-6.2 HGB 13.2 g/dL L 14.0-18.0 HCT 40.5 L 42.0-52.0 MCV 89.8 fL 80.0-94.0 MCH 29.3 pg 27.0-31.0 MCHC 32.6 g/dL 32.0-36.0 PLT 241 10*3/uL 150-450 MPV 10.3 fL 9.0-13.1 RDW 13.2 11.0-16.0 NRBC 0.0 0.0-0.0 Dec 11, 2024 12:05 PM [facility] PLASMA Specimen Type: PLASM A [...] Dec 11, 2024 11:48 AM Reporting Lab: [address] [phone] Performing Lab: [address] [phone] CREATININE 0.60 mg/dL L 0.72-1.25 UREA NITROGEN [...] and tobacco- related health factors from the [place] facility where the Encounter took place. Current Smoking Status This section includes the most current smoking, or tobacco-related health factor, from the [place] facility where the Encounter took place. Date/Time Current Smoking Status Comment Facil ity Apr 03, 2024 01:15 PM VA-TOBACCO NEVER USED [facility] Tobacco Use History This section includes a history of the smoking, or tobacco-related health factors, that were collected on or before the date of the Encounter. The data comes from the [place] facility where the Encounter took place. Date/Time Smoking Status/Tobacco Use Comment F acility Jan 21, 2016 04:53 PM NON-TOBACCO USE INPATIENT [facility] Jan 13, 2016 06:51 AM V9 QUIT TOBACCO >7 YEARS AGO [facility] Advance Directives: All historical and current Section Date Range: From patient's date of to the date document was created. This section includes ALL of a patient's completed or amended [place] Advance and Rescinded Directives. The entries below indicate that a directive exists for the patient, but an actual copy is not included with this document. The data comes from all [place] facilities. Date Advance Directives Provider Source Apr 16, 2010 ADVANCE DIRECTIVE ALEXEY SHEPHERD BOC Encounter Notes: All associated encounter notes This section contains the clinical notes associated to the Encounter. Date/Time Encounter Note(s) Provider Source November 20, 2024 03:49 PM RESPIRATORY THERAP Y NOTE: LOCAL TITLE: RESPIRATORY CARE TREATMENT NOTE STANDARD TITLE: RESPIRATORY THERAPY NOTE DATE OF NOTE: NOVEMBER 20, 2024@15:49 ENTRY DATE: NOVEMBER 20, 2024@15:49:52 AUTHOR: MIKKI COVINGTON EXP COSIGNER: URGENCY: STATUS: COMPLETED Diagnosis:Moderate chronic obstructive pulmonary disease ([facility] [id number]) - Chronic obstructive pulmonary disease, unspecified (ICD-10-CM J44.9) (Primary) instructed in the use of the prescribed inhaled medications: MOMETASONE HFA INHL,ORAL 200MCG/ACTUAT 2 puffs Twice a Day OLODATEROL/TIOTROPIUM INHL,ORAL OLODATEROL/TIOTROP 2.5MCG/ACTUAT 60D INH INHALE 2 PUFFS BY MOUTH DAILY Demonstration of proper technique for administering MDI medication with spacer/holding chamber and Respimat medication was provided. Patient voiced and demonstrated understanding of care and use of inhaled medications. Discussed prescribed medication and difference in maintenance medication versus rescue medication. Written information on proper use and care of medication was given to patient. Clinic contact information reviewed with patient for further questions. /mona/ MIKKI COVINGTON Registered Pulmonary Function Tech Signed: 11/20/2024 15:52 [facility]
--- OUTSIDE RECORDS SUMMARY | 2024-11-22 09:43 | XMS_ITS | Encounter Summary ---
Author Name [facility] [facility] [place] Address [address] [place] [address] Care Team Providers Care Concrete Block Mason Name Role Phone IRASEMA GIRON Primary Care [...] PART A Jun 04, 2009 PART A [id number] [place] PATIENT MEDICARE (WNR) MEDICARE (M) PART A Jun 04, 2009 PART A [id number] [place] PATIENT MEDICARE (WNR) MEDICARE (M) PART A Jun 04, 2009 PART A [id number] [place] PATIENT MEDICARE (WNR) MEDICARE (M) PART A Jun 04, 2009 PART A [id number] [place] PATIENT MEDICARE (WNR) MEDICARE (M) PART A Jun 04, 2009 PART A [id number] [place] PATIENT Selected Encounter This section includes the information on record at [place] for the Encounter. Date/Time Encounter Type Encounter Description Reason Pro vider Source November 22, 2024 01:43 PM Outpatient Encounter ADMIN PAT ACTIVTIES (MASNONCT) IHE Encounter Template Text not used by [facility] Plan of Treatment: Future Appointments (+ 6 months) and Future Tests (+/- 45 days) The Plan of Treatment section includes future care activities for the patient [facility] [place] [facility] This section includes future appointments and future orders which are active, pending or scheduled. Future Appointments This section includes appointments that were scheduled to occur 6 months from the date of the Encounter, up to a maximum of 20 appointments. The data comes from all [facility]. Appointment Date/Time Appointment Type Appointme nt Facility Name Dec 11, 2024 11:00 AM AMBULATORY - NONE [facility] Dec 18, 2024 08:15 AM AMBULATORY - MEDICINE [facility] Dec 18, 2024 09:15 AM AMBULATORY - MEDICINE [facility] Dec 18, 2024 11:15 AM AMBULATORY - MEDICINE [facility] Active, Pending, and Scheduled Orders This section includes a listing of several types of active, pending, and scheduled orders, including clinic medications orders, diagnostic test orders, procedure orders and consult orders; where the start date of the order is 45 days before the date of the Encounter or 45 days after the date of theEncounter. The data comes from all [facility]. Test Date/Time Test Type Test Details Facility Name Dec 11, 2024 03:47 PM Consult Order MED DERMAT OLOGY OUTPATIENT Cons Product Management Specialist's Choice [facility] Dec 25, 2024 12:00 AM Laboratory - Chemi stry Order PANEL 1 [id number] SP ONCE [facility] Dec 25, 2024 12:00 AM Laboratory - Chemi stry Order BNP (KEITH) [id number] SP [facility] Lab Results: +/- 30 days of the encounter This section includes the Chemistry and Hematology Lab Results on record with [place] for the patient. Radiology Reports and Pathology Reports are provided separately, in subsequent sections. Lab Results This section contains the Chemistry/Hematology Results that were resulted 30 days before or 30 daysafter the date of the Encounter. Date/Time Source Result Type Result - Unit Interpretation Reference Range Specimen Type Comment Dec 11, 2024 12:05 PM [facility] GLYCOHEMOGLOBIN BLOOD Specimen Type: BLOOD Comment: Prediabetes: 5.7%-6.4% Diabetes: >= 6.5% [facility] guidelines for A1c interpretation: Glycemic control targets are based on Shared Decision Making between clinicians and patients. Criteria used to establish an A1c target recommendation can be found at https://www.ar. ov/qualityandpat ientsafety/ and include the use of [...] and 9.27. Ref: https://ngsp.org /CAPdata.asp. The in-house [employer] D-100 analyzer has a historical CV <= 2%. Contact the laboratory for further performance characteristics of this assay. Ordering Provider: IRASEMA GIRON Report Released Date/Time: Dec 11, 2024 11:48 AM Reporting Lab: [address] [id number] Performing Lab: [address] [address] GLYCOHEMOGLOBIN 5.1 4.4-5.6 Dec 11, 2024 12:05 PM [facility] LIPID PROFILE PLASMA Specimen Type: PLASM A [...] Dec 11, 2024 11:48 AM Reporting Lab: [address] [id number] Performing Lab: [address] [address] CHOLESTEROL 151 mg/dL 0-199 TRIGLYCERIDE 60 mg/dL 0-149 HDL CHOLESTEROL 72 mg/dL H 40-69 DIRECT LDL CHOL. 70 mg/dL 0-100 Dec 11, 2024 12:05 PM [facility] CBC/PLT BLOOD Specimen Type: BLOOD No comment entered. Ordering Provider: IRASEMA GIRON Report Released Date/Time: Dec 11, 2024 11:48 AM Reporting Lab: [address] [id number] Performing Lab: [address] [address] WBC 8.4 10*3/uL 5.0-10.0 RBC 4.51 10*6/uL L 4.6-6.2 HGB 13.2 g/dL L 14.0-18.0 HCT 40.5 L 42.0-52.0 MCV 89.8 fL 80.0-94.0 MCH 29.3 pg 27.0-31.0 MCHC 32.6 g/dL 32.0-36.0 PLT 241 10*3/uL 150-450 MPV 10.3 fL 9.0-13.1 RDW 13.2 11.0-16.0 NRBC 0.0 0.0-0.0 Dec 11, 2024 12:05 PM [facility] PANEL 5 PLASMA Specimen Type: PLASM A [...] Dec 11, 2024 11:48 AM Reporting Lab: [facility] [address] [facility] [address] Performing Lab: [address] [address] CREATININE 0.60 mg/dL L 0.72-1.25 UREA NITROGEN [...] and tobacco- related health factors from the [place] facility where the Encounter took place. Current Smoking Status This section includes the most current smoking, or tobacco-related health factor, from the [place] facility where the Encounter took place. Date/Time Current Smoking Status Comment Zayda kwok Apr 03, 2024 01:15 PM VA-TOBACCO NEVER USED [facility] Tobacco Use History This section includes a history of the smoking, or tobacco-related health factors, that were collected on or before the date of the Encounter. The data comes from the [place] facility where the Encounter took place. Date/Time Smoking Status/Tobacco Use Comment Ramesh mckeon Jan 21, 2016 04:53 PM NON-TOBACCO USE INPATIENT [facility] Jan 13, 2016 06:51 AM V9 QUIT TOBACCO >7 YEARS AGO [facility] Advance Directives: All historical and current Section Date Range: From patient's date of to the date document was created. This section includes ALL of a patient's completed or amended [place] Advance and Rescinded Directives. The entries below indicate that a directive exists for the patient, but an actual copy is not included with this document. The data comes from all [place] facilities. Date Advance Directives Provider Source Apr 16, 2010 ADVANCE DIRECTIVE ALEXEY SHEPHERD BOC Encounter Notes: All associated encounter notes This section contains the clinical notes associated to the Encounter. Date/Time Encounter Note(s) Provider Source November 22, 2024 01:43 PM ADMINISTRATIVE NOT E: LOCAL TITLE: CCC: SCHEDULING ADMINISTRATION STANDARD TITLE: ADMINISTRATIVE NOTE DATE OF NOTE: NOVEMBER 22, 2024@13:43:21 ENTRY DATE: NOVEMBER 22, 2024@13:43:21 AUTHOR: RICARDO SANDOVAL EXP COSIGNER: URGENCY: STATUS: COMPLETED Caller Verification Call Back Number: [phone] Emergency Contact: ROBERT JAY Emergency Contact Caller/Recipient Relation to Patient: Self Caller Name: MARIZA JAY Administrative Administrative Note Reason: Other Administrative Note Comments: is calling stating he thought he had a nebulizer at home but it does not work, he is needing a new on bindu he said. IMPORTANT: This note was created by [facility] staff. Please do not alert the staff member by adding them as a signer for future communications. Alerts are not monitored by this user. /mona/ RICARDO SANDOVAL Java Golden Gate Developer, Telephone Care Signed: 11/22/2024 13:43 Receipt Acknowledged By: 11/23/2024 07:48 /es/ STEFANO GONZALEZ Pulmonary / Critical Care MD 11/23/2024 12:02 /es/ Reina Lew, RN Pulmonary Project Manager 11/22/2024 14:42 /es/ IRASEMA GIRON NURSE PRACTITIONER [facility]
--- OUTSIDE RECORDS SUMMARY | 2024-11-28 07:37 | XMS_ITS ---
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 Date/Time Encounter Type Encounter Description Reason Pro vider Source November 28, 2024 11:37 AM Outpatient Encounter ADMIN PAT ACTIVTIES (MASNONCT) IHE Encounter Template Text not used by [facility] Plan of Treatment: Future Appointments (+ 6 months) and Future Tests (+/- 45 days) The Plan of Treatment section includes future care activities for the [facility] [place] [facility] This section includes future appointments and future orders which are active, pending or scheduled. Future Appointments This section includes appointments that were scheduled to occur 6 months from the date of the Encounter, up to a maximum of 20 appointments. The data comes from all [facility]. Appointment Date/Time Appointment Type Appointme nt Facility Name Dec 11, 2024 11:00 AM AMBULATORY - NONE [facility] Dec 18, 2024 08:15 AM AMBULATORY - MEDICINE [facility] Dec 18, 2024 09:15 AM AMBULATORY - MEDICINE [facility] Dec 18, 2024 11:15 AM AMBULATORY - MEDICINE [facility] Active, Pending, and Scheduled Orders This section includes a listing of several types of active, pending, and scheduled orders, including clinic medications orders, diagnostic test orders, procedure orders and consult orders; where the start date of the order is 45 days before the date of the Encounter or 45 days after the date of theEncounter. The data comes from all [facility]. Test Date/Time Test Type Test Details Facility Name Dec 11, 2024 03:47 PM Consult Order MED DERMAT OLOGY OUTPATIENT Cons Ict Business Development Manager's Choice [facility] Dec 25, 2024 12:00 AM Laboratory - Chemi stry Order PANEL 1 [id number] SP ONCE [facility] Dec 25, 2024 12:00 AM Laboratory - Chemi stry Order BNP (KEITH) [id number] SP [facility] Lab Results: +/- 30 days of the encounter This section includes the Chemistry and Hematology Lab Results on record with [place] for the patient. Radiology Reports and Pathology Reports are provided separately, in subsequent sections. Lab Results This section contains the Chemistry/Hematology Results that were resulted 30 days before or 30 daysafter the date of the Encounter. Date/Time Source Result Type Result - Unit Interpretation Reference Range Specimen Type Comment Dec 11, 2024 12:05 PM [facility] GLYCOHEMOGLOBIN BLOOD Specimen Type: BLOOD Comment: Prediabetes: 5.7%-6.4% Diabetes: >= 6.5% [facility] guidelines for A1c interpretation: Glycemic control targets are based on Shared Decision Making between clinicians and patients. Criteria used to establish an A1c target recommendation can be found at https://www.ok. ov/qualityandpat ientsafety/ and include the use of [...] and 9.27. Ref: https://ngsp.org /CAPdata.asp. The in-house [employer] D-100 analyzer has a historical CV <= 2%. Contact the laboratory for further performance characteristics of this assay. Ordering Provider: IRASEMA GIRON Report Released Date/Time: Dec 11, 2024 11:48 AM Reporting Lab: [address] [address] Performing Lab: [address] [address] GLYCOHEMOGLOBIN 5.1 4.4-5.6 Dec 11, 2024 12:05 PM [facility] LIPID PROFILE PLASMA Specimen Type: PLASM [...] Dec 11, 2024 11:48 AM Reporting Lab: [address] [address] Performing Lab: [address] [address] CHOLESTEROL 151 mg/dL 0-199 TRIGLYCERIDE 60 mg/dL 0-149 HDL CHOLESTEROL 72 mg/dL H 40-69 DIRECT LDL CHOL. 70 mg/dL 0-100 Dec 11, 2024 12:05 PM [facility] CBC/PLT BLOOD Specimen Type: BLOOD No comment entered. Ordering Provider: IRASEMA GIRON Report Released Date/Time: Dec 11, 2024 11:48 AM Reporting Lab: [address] [address] Performing Lab: [address] [address] WBC 8.4 10*3/uL 5.0-10.0 RBC 4.51 10*6/uL L 4.6-6.2 HGB 13.2 g/dL L 14.0-18.0 HCT 40.5 L 42.0-52.0 MCV 89.8 fL 80.0-94.0 MCH 29.3 pg 27.0-31.0 MCHC 32.6 g/dL 32.0-36.0 PLT 241 10*3/uL 150-450 MPV 10.3 fL 9.0-13.1 RDW 13.2 11.0-16.0 NRBC 0.0 0.0-0.0 Dec 11, 2024 12:05 PM [facility] PANEL 5 PLASMA Specimen Type: [...] Dec 11, 2024 11:48 AM Reporting Lab: [facility] [address] [facility] [address] Performing Lab: [address] [address] CREATININE 0.60 mg/dL L 0.72-1.25 UREA NITROGEN [...] and tobacco- related health factors from the [place] facility where the Encounter took place. Current Smoking Status This section includes the most current smoking, or tobacco-related health factor, from the [place] facility where the Encounter took place. Date/Time Current Smoking Status Comment Zayda kwok Apr 03, 2024 01:15 PM VA-TOBACCO NEVER USED [facility] Tobacco Use History This section includes a history of the smoking, or tobacco-related health factors, that were collected on or before the date of the Encounter. The data comes from the [place] facility where the Encounter took place. Date/Time Smoking Status/Tobacco Use Comment Ramesh mckeon Jan 21, 2016 04:53 PM NON-TOBACCO USE INPATIENT [facility] Jan 13, 2016 06:51 AM V9 QUIT TOBACCO >7 YEARS AGO [facility] Advance Directives: All historical and current Section Date Range: From patient's date of to the date document was created. This section includes ALL of a patient's completed or amended [place] Advance and Rescinded Directives. The entries below indicate that a directive exists for the patient, but an actual copy is not included with this document. The data comes from all [place] facilities. Date Advance Directives Provider Source Apr 16, 2010 ADVANCE DIRECTIVE ALEXEY SHEPHERD BOC Encounter Notes: All associated encounter notes This section contains the clinical notes associated to the Encounter. Date/Time Encounter Note(s) Provider Source November 05, 2024 11:37 AM NONVA NOTE: LOCAL TITLE: OUTSIDE MEDICAL RECORD-OTHER STANDARD TITLE: NONVA NOTE DATE OF NOTE: NOVEMBER 05, 2024@11:37 ENTRY DATE: NOVEMBER 28, 2024@11:37:12 AUTHOR: PATRICIA ESTRADA COSIGNER: URGENCY: STATUS: COMPLETED The scanned document may be viewed in [employer]. /mona/ PATRICIA ESTRADA PHOTOGRAPHY INTERN Signed: 11/28/2024 11:37 PATRICIA ESTRADA [facility] Sep 05, 2024 11:38 AM NONVA NOTE: LOCAL TITLE: OUTSIDE MEDICAL RECORD-OTHER STANDARD TITLE: NONVA NOTE DATE OF NOTE: SEP 05, 2024@11:38 ENTRY DATE: NOVEMBER 28, 2024@11:38:15 AUTHOR: PATRICIA ESTRADA COSIGNER: URGENCY: STATUS: COMPLETED The scanned document may be viewed in [employer]. /mona/ PATRICIA ESTRADA PHOTOGRAPHY INTERN Signed: 11/28/2024 11:38 PATRICIA ESTRADA [facility]
--- OUTSIDE RECORDS SUMMARY | 2024-11-30 04:44 | XMS_ITS | Encounter Summary ---
Author Name [facility] [place] [facility] [place] [facility] [place] Address [address] [place] [address] Care Team Providers Care Machine Shop Worker Name Role Phone IRASEMA GIRON Primary Care [...] PART A Jun 04, 2009 PART A [id number] [phone] [place] PATIENT MEDICARE (WNR) MEDICARE (M) PART A Jun 04, 2009 PART A [id number] [place] PATIENT MEDICARE (WNR) MEDICARE (M) PART A Jun 04, 2009 PART A [id number] [id number] [place] PATIENT MEDICARE (WNR) MEDICARE (M) PART A Jun 04, 2009 PART A [id number] [place] PATIENT MEDICARE (WNR) MEDICARE (M) PART A Jun 04, 2009 PART A [id number] [place] PATIENT Selected Encounter This section includes the information on record at [place] for the Encounter. Date/Time Encounter Type Encounter Description Reason Pro vider Source November 30, 2024 08:44 AM Outpatient Encounter ADMIN PAT ACTIVTIES (MASNONCT) IHE Encounter Template Text not used by VA Plan of Treatment: Future Appointments (+ 6 months) and Future Tests (+/- 45 days) The Plan of Treatment section includes future care activities for the patient from all [place] [facility]. This section includes future appointments and future orders which are active, pending or scheduled. Future Appointments This section includes appointments that were scheduled to occur 6 months from the date of the Encounter, up to a maximum of 20 appointments. The data comes from all [facility]. Appointment Date/Time Appointment Type Appointme nt Facility Name Dec 11, 2024 11:00 AM AMBULATORY - NONE [facility] Dec 18, 2024 08:15 AM AMBULATORY - MEDICINE [facility] Dec 18, 2024 09:15 AM AMBULATORY - MEDICINE [facility] Dec 18, 2024 11:15 AM AMBULATORY - MEDICINE [facility] Active, Pending, and Scheduled Orders This section includes a listing of several types of active, pending, and scheduled orders, including clinic medications orders, diagnostic test orders, procedure orders and consult orders; where the start date of the order is 45 days before the date of the Encounter or 45 days after the date of theEncounter. The data comes from all [facility]. Test Date/Time Test Type Test Details Facility Name Dec 11, 2024 03:47 PM Consult Order MED DERMAT OLOGY OUTPATIENT Cons Communications Field Technician's Choice [facility] Dec 25, 2024 12:00 AM Laboratory - Chemi stry Order PANEL 1 [id number] SP ONCE [facility] Dec 25, 2024 12:00 AM Laboratory - Chemi stry Order BNP (KEITH) [id number] SP [facility] Lab Results: +/- 30 days of the encounter This section includes the Chemistry and Hematology Lab Results on record with [place] for the patient. Radiology Reports and Pathology Reports are provided separately, in subsequent sections. Lab Results This section contains the Chemistry/Hematology Results that were resulted 30 days before or 30 daysafter the date of the Encounter. Date/Time Source Result Type Result - Unit Interpretation Reference Range Specimen Type Comment Dec 11, 2024 12:05 PM [facility] GLYCOHEMOGLOBIN BLOOD Specimen Type: BLOOD Comment: Prediabetes: 5.7%-6.4% Diabetes: >= 6.5% [facility] guidelines for A1c interpretation: Glycemic control targets are based on Shared Decision Making between clinicians and patients. Criteria used to establish an A1c target recommendation can be found at https://www.ct. ov/qualityandpat ientsafety/ and include the use of [...] and 9.27. Ref: https://ngsp.org /CAPdata.asp. The in-house [employer] D-100 analyzer has a historical CV <= 2%. Contact the laboratory for further performance characteristics of this assay. Ordering Provider: IRASEMA GIRON Report Released Date/Time: Dec 11, 2024 11:48 AM Reporting Lab: [address] [address] Performing Lab: [address] [address] GLYCOHEMOGLOBIN 5.1 4.4-5.6 Dec 11, 2024 12:05 PM [facility] LIPID PROFILE PLASMA Specimen Type: PLASM [...] Dec 11, 2024 11:48 AM Reporting Lab: [address] [address] Performing Lab: [address] [address] CHOLESTEROL 151 mg/dL 0-199 TRIGLYCERIDE 60 mg/dL 0-149 HDL CHOLESTEROL 72 mg/dL H 40-69 DIRECT LDL CHOL. 70 mg/dL 0-100 Dec 11, 2024 12:05 PM [facility] CBC/PLT BLOOD Specimen Type: BLOOD No comment entered. Ordering Provider: IRASEMA GIRON Report Released Date/Time: Dec 11, 2024 11:48 AM Reporting Lab: [address] [address] Performing Lab: [address] [address] WBC 8.4 10*3/uL 5.0-10.0 RBC 4.51 10*6/uL L 4.6-6.2 HGB 13.2 g/dL L 14.0-18.0 HCT 40.5 L 42.0-52.0 MCV 89.8 fL 80.0-94.0 MCH 29.3 pg 27.0-31.0 MCHC 32.6 g/dL 32.0-36.0 PLT 241 10*3/uL 150-450 MPV 10.3 fL 9.0-13.1 RDW 13.2 11.0-16.0 NRBC 0.0 0.0-0.0 Dec 11, 2024 12:05 PM [facility] PANEL 5 PLASMA Specimen Type: PLASM [...] Dec 11, 2024 11:48 AM Reporting Lab: [facility] [address] [facility] [address] Performing Lab: [address] [address] CREATININE 0.60 mg/dL L 0.72-1.25 UREA NITROGEN [...] and tobacco- related health factors from the [place] facility where the Encounter took place. Current Smoking Status This section includes the most current smoking, or tobacco-related health factor, from the [place] facility where the Encounter took place. Date/Time Current Smoking Status Comment Zayda ity Apr 03, 2024 01:15 PM VA-TOBACCO NEVER USED [facility] Tobacco Use History This section includes a history of the smoking, or tobacco-related health factors, that were collected on or before the date of the Encounter. The data comes from the [place] facility where the Encounter took place. Date/Time Smoking Status/Tobacco Use Comment F acility Jan 21, 2016 04:53 PM NON-TOBACCO USE INPATIENT [facility] Jan 13, 2016 06:51 AM V9 QUIT TOBACCO >7 YEARS AGO [facility] Advance Directives: All historical and current Section Date Range: From patient's date of to the date document was created. This section includes ALL of a patient's completed or amended [place] Advance and Rescinded Directives. The entries below indicate that a directive exists for the patient, but an actual copy is not included with this document. The data comes from all [place] facilities. Date Advance Directives Provider Source Apr 16, 2010 ADVANCE DIRECTIVE ALEXEY SHEPHERD BOC Encounter Notes: All associated encounter notes This section contains the clinical notes associated to the Encounter. Date/Time Encounter Note(s) Provider Source November 30, 2024 08:44 AM ADMINISTRATIVE NOT E: LOCAL TITLE: CCC: SCHEDULING ADMINISTRATION STANDARD TITLE: ADMINISTRATIVE NOTE DATE OF NOTE: NOVEMBER 30, 2024@08:44:09 ENTRY DATE: NOVEMBER 30, 2024@08:44:10 AUTHOR: ANDREA HALEY EXP COSIGNER: URGENCY: STATUS: COMPLETED Caller Verification Call Back Number: [phone] Emergency Contact: ROBERT JAY Emergency Contact Caller/Recipient Relation to Patient: Self Caller Name: MARIZA JAY Administrative Administrative Note Reason: Other Administrative Note Comments: vet called, needs a new Urology Consult as its been since 09/30/21 since last seen at Clinic. IMPORTANT: This note was created by [facility] Clinical Contact Center staff. Please do not alert the staff member by adding them as a signer for future communications. Alerts are not monitored by this user. /mona/ ANDREA HALEY [facility] Clinical Call Center Signed: 11/30/2024 08:44 Receipt Acknowledged By: 12/01/2024 09:10 /mona/ Jessica Rankin RN research test engine operator for NIKO Esteban ANDREA GONZALEZ-CDD [facility]
--- OUTSIDE RECORDS SUMMARY | 2024-12-01 05:10 | XMS_ITS | Encounter Summary ---
Author Name [facility] [facility] [place] [facility] [place] Address [address] [place] [address] Care Team Providers Care Supervisor Film Processing Name Role Phone IRASEMA GIRON Primary Care [...] PART A Jun 04, 2009 PART A [id number] [place] PATIENT MEDICARE (WNR) MEDICARE (M) PART A Jun 04, 2009 PART A [id number] [place] PATIENT MEDICARE (WNR) MEDICARE (M) PART A Jun 04, 2009 PART A [id number] [place] PATIENT MEDICARE (WNR) MEDICARE (M) PART A Jun 04, 2009 PART A [id number] [place] PATIENT MEDICARE (WNR) MEDICARE (M) PART A Jun 04, 2009 PART A [id number] [place] PATIENT Selected Encounter This section includes the information on record at [place] for the Encounter. Date/Time Encounter Type Encounter Description Reason Provider Source December 01, 2024 09:10 AM PH1 ASSMT&MGMT NQHP 5-10 TELEPHONE PRIMARY CARE ICD-10-CM Z71.89 Other specified counseling ELAINA RANKIN [facility] Encounter Template Text not used by [place] Assessments - Encounter Diagnoses This section includes the primary and secondary diagnoses documented for the Encounter. Date/Time Primary/Secondary Diagnosis Diagnosis Name Provider Source December 01, 2024 09:10 AM PRIMARY Other specified counseling ELAINA RANKIN [facility] Plan of Treatment: Future Appointments (+ 6 months) and Future Tests (+/- 45 days) The Plan of Treatment section includes future care activities for the patient from all [place] [facility] This section includes future appointments and future orders which are active, pending or scheduled. Future Appointments This section includes appointments that were scheduled to occur 6 months from the date of the Encounter, up to a maximum of 20 appointments. The data comes from all [facility]. Appointment Date/Time Appointment Type Appointme nt Facility Name Dec 11, 2024 11:00 AM [facility] Dec 18, 2024 08:15 AM AMBULATORY - MEDICINE [facility] Dec 18, 2024 09:15 AM AMBULATORY - MEDICINE [facility] Dec 18, 2024 11:15 AM AMBULATORY - MEDICINE [facility] Active, Pending, and Scheduled Orders This section includes a listing of several types of active, pending, and scheduled orders, including clinic medications orders, diagnostic test orders, procedure orders and consult orders; where the start date of the order is 45 days before the date of the Encounter or 45 days after the date of theEncounter. The data comes from all [facility]. Test Date/Time Test Type Test Details Facility Name Dec 11, 2024 03:47 PM Consult Order MED DERMAT OLOGY OUTPATIENT Cons Auto Job Estimator's Choice [facility] Dec 25, 2024 12:00 AM Laboratory - Chemi stry Order PANEL 1 [id number] SP ONCE [facility] Dec 25, 2024 12:00 AM Laboratory - Chemi stry Order BNP (KEITH) [id number] SP [facility] Lab Results: +/- 30 days of the encounter This section includes the Chemistry and Hematology Lab Results on record with [place] for the patient. Radiology Reports and Pathology Reports are provided separately, in subsequent sections. Lab Results This section contains the Chemistry/Hematology Results that were resulted 30 days before or 30 daysafter the date of the Encounter. Date/Time Source Result Type Result - Unit Interpretation Reference Range Specimen Type Comment Dec 11, 2024 12:05 PM [facility] GLYCOHEMOGLOBIN BLOOD Specimen Type: BLOOD Comment: Prediabetes: 5.7%-6.4% Diabetes: >= 6.5% [facility] guidelines for A1c interpretation: Glycemic control targets are based on Shared Decision Making between clinicians and patients. Criteria used to establish an A1c target recommendation can be found at https://www.ny. ov/qualityandpat ientsafety/ and include the use of [...] and 9.27. Ref: https://ngsp.org /CAPdata.asp. The in-house adMingle - Share Your Passion!-Punch! D-100 analyzer has a historical CV <= 2%. Contact the laboratory for further performance characteristics of this assay. Ordering Provider: IRASEMA GIRON Report Released Date/Time: Dec 11, 2024 11:48 AM Reporting Lab: [address] [address] Performing Lab: [address] [address] GLYCOHEMOGLOBIN 5.1 4.4-5.6 Dec 11, 2024 12:05 PM [facility] LIPID PROFILE PLASMA Specimen Type: PLASM A [...] Dec 11, 2024 11:48 AM Reporting Lab: [address] [address] Performing Lab: [address] [address] CHOLESTEROL 151 mg/dL 0-199 TRIGLYCERIDE 60 mg/dL 0-149 HDL CHOLESTEROL 72 mg/dL H 40-69 DIRECT LDL CHOL. 70 mg/dL 0-100 Dec 11, 2024 12:05 PM [facility] CBC/PLT BLOOD Specimen Type: BLOOD No comment entered. Ordering Provider: IRASEMA GIRON Report Released Date/Time: Dec 11, 2024 11:48 AM Reporting Lab: [facility] [address] [facility] [address] Performing Lab: [facility] [address] [facility] [address] WBC 8.4 10*3/uL 5.0-10.0 RBC 4.51 10*6/uL L 4.6-6.2 HGB 13.2 g/dL L 14.0-18.0 HCT 40.5 L 42.0-52.0 MCV 89.8 fL 80.0-94.0 MCH 29.3 pg 27.0-31.0 MCHC 32.6 g/dL 32.0-36.0 PLT 241 10*3/uL 150-450 MPV 10.3 fL 9.0-13.1 RDW 13.2 11.0-16.0 NRBC 0.0 0.0-0.0 Dec 11, 2024 12:05 PM [facility] PANEL 5 PLASMA Specimen Type: [...] Dec 11, 2024 11:48 AM Reporting Lab: [address] [address] Performing Lab: [address] [address] CREATININE 0.60 mg/dL L 0.72-1.25 UREA NITROGEN [...] Facil ity Mar 18, 2023 10:00 AM [place]-TOBACCO QUIT 5 TO < 15 YRS [facility] Tobacco Use History This section includes a history of the smoking, or tobacco-related health factors, that were collected on or before the date of the Encounter. The data comes from the [place] facility where the Encounter took place. Date/Time Smoking Status/Tobacco Use Comment F acility Mar 18, 2023 10:00 AM [place]-TOBACCO QUIT 5 TO < 15 YRS [facility] Apr 30, 2022 11:00 AM VA-TOBACCO FORMER USER [facility] Apr 30, 2022 11:00 AM VA-TOBACCO QUIT 15 YRS OR MORE [facility] Apr 24, 2021 09:30 AM VA-TOBACCO FORMER USER [facility] Apr 24, 2021 09:30 AM VA-TOBACCO QUIT 5 TO < 15 YRS [facility] Feb 14, 2021 10:00 AM VA-TOBACCO FORMER USER [facility] Feb 14, 2021 10:00 AM VA-TOBACCO QUIT 15 YRS OR MORE [facility] Apr 20, 2018 11:36 AM VA-TOBACCO FORMER USER [facility] Apr 20, 2018 11:36 AM VA-TOBACCO QUIT 15 YRS OR MORE [facility] Feb 09, 2017 10:00 AM V9 QUIT TOBACCO >7 YEARS AGO [facility] Feb 11, 2015 10:54 AM V9 QUIT TOBACCO >7 YEARS AGO [facility] Mar 16, 2014 08:35 AM V9 QUIT TOBACCO >1 2 MO & <7 YRS AGO [facility] Mar 16, 2014 08:35 AM V9 TOBACCO OFFERED [facility] Advance Directives: All historical [...] the Encounter. Date/Time Encounter Note(s) Provider Source December 01, 2024 01:25 PM ADDENDUM: LOCAL TITLE: Addendum STANDARD TITLE: ADDENDUM DATE OF NOTE: DECEMBER 01, 2024@13:25:28 ENTRY DATE: DECEMBER 01, 2024@13:25:29 AUTHOR: JESSICA RANKIN EXP COSIGNER: URGENCY: STATUS: COMPLETED Phoned patient and informed that pcp doesn't see where he has ever had an Urology consult. Patient states that he doesn't need a Urology consult; states that he doesn't remember what it is that he is needing. Patient is requesting to be seen by pcp; advised that he is due for f/u in December and will ask Victoria to get him scheduled for pcp to evaluate his needs further. /mona/ Jessica Rankin RN aerial gunner Signed: 12/01/2024 13:27 Receipt Acknowledged By: 12/01/2024 13:43 /mona/ Victoria Dallas Advanced Tobacco Warehouse Manager ====== --- Original Document --- 12/01/24 PC CARE MANAGEMENT: Returned phone call to patient; he states that he is needing a new Urology consult; reports that they had tried to contact him. /damaris Rankin RN aerial gunner Signed: 12/01/2024 09:11 Receipt Acknowledged By: 12/01/2024 12:20 /damaris GIRON NURSE PRACTITIONER 12/01/2024 ADDENDUM STATUS: COMPLETED I do not see any consult for urology? /damaris GIRON NURSE PRACTITIONER Signed: 12/01/2024 12:22 Receipt Acknowledged By: 12/01/2024 13:25 /damaris Rankin RN aerial gunner for NIKO SHORT JESSICA RANKIN [facility] December 01, 2024 12:21 PM ADDENDUM: LOCAL TITLE: Addendum STANDARD TITLE: ADDENDUM DATE OF NOTE: DECEMBER 01, 2024@12:21:12 ENTRY DATE: DECEMBER 01, 2024@12:21:14 AUTHOR: IRASEMA GIRON EXP COSIGNER: URGENCY: STATUS: COMPLETED I do not see any consult for urology? /damaris GIRON NURSE PRACTITIONER Signed: 12/01/2024 12:22 Receipt Acknowledged By: 12/01/2024 13:25 /damaris Rankin RN aerial gunner for NIKO SHORT ====== --- Original Document --- 12/01/24 PC CARE MANAGEMENT: Returned phone call to patient; he states that he is needing a new Urology consult; reports that they had tried to contact him. /damaris Rankin RN aerial gunner Signed: 12/01/2024 09:11 Receipt Acknowledged By: 12/01/2024 12:20 /damaris GIRON NURSE PRACTITIONER 12/01/2024 ADDENDUM STATUS: UNSIGNED You may not VIEW this UNSIGNED Addendum. IRASEMA GIRON [facility] December 01, 2024 09:10 AM PRIMARY CARE E & M NOTE: LOCAL TITLE: PC CARE MANAGEMENT STANDARD TITLE: PRIMARY CARE E & M NOTE DATE OF NOTE: DECEMBER 01, 2024@09:10 ENTRY DATE: DECEMBER 01, 2024@09:10:23 AUTHOR: JESSICA RANKIN EXP COSIGNER: URGENCY: STATUS: COMPLETED PC CARE MANAGEMENT Has ADDENDA Returned phone call to patient; he states that he is needing a new Urology consult; reports that they had tried to contact him. /damaris Rankin RN aerial gunner Signed: 12/01/2024 09:11 Receipt Acknowledged By: 12/01/2024 12:20 /damaris GIRON NURSE PRACTITIONER 12/01/2024 ADDENDUM STATUS: COMPLETED I do not see any consult for urology? /damaris GIRON NURSE PRACTITIONER Signed: 12/01/2024 12:22 Receipt Acknowledged By: 12/01/2024 13:25 /es/ Jessica Rankin, RN aerial gunner for NIKO SHORT 12/01/2024 ADDENDUM STATUS: COMPLETED Phoned patient and informed that pcp doesn't see where he has ever had an Urology consult. Patient states that he doesn't need a Urology consult; states that he doesn't remember what it is that he is needing. Patient is requesting to be seen by pcp; advised that he is due for f/u in December and will ask Victoria to get him scheduled for pcp to evaluate his needs further. /mona/ Jessica Rankin RN aerial gunner Signed: 12/01/2024 13:27 Receipt Acknowledged By: 12/01/2024 13:43 /mona/ Victoria Dallas Advanced Tobacco Warehouse Manager 12/01/2024 ADDENDUM STATUS: COMPLETED SPOKE WITH MUMTAZ AND LIANE PAUL 12/11/2024@1100 LETTER MAILED /damaris Dallas Advanced Tobacco Warehouse Manager Signed: 12/01/2024 13:48 JESSICA RANKIN [facility]
--- OUTSIDE RECORDS SUMMARY | 2024-12-10 20:00 | XMS_ITS | Encounter Summary ---
Author Name [facility] [place] [facility] [place] [facility] [place] Address [address] [place] [address] Care Team Providers Care Mobile Heavy Equipment Operator Name Role Phone IRASEMA GIRON Primary [...] PART A Jun 04, 2009 PART A [id number] [place] PATIENT MEDICARE (WNR) MEDICARE (M) PART A Jun 04, 2009 PART A [id number] [place] PATIENT MEDICARE (WNR) MEDICARE (M) PART A Jun 04, 2009 PART A [id number] [place] PATIENT MEDICARE (WNR) MEDICARE (M) PART A Jun 04, 2009 PART A [id number] [place] PATIENT MEDICARE (WNR) MEDICARE (M) PART A Jun 04, 2009 PART A [id number] [place] PATIENT Selected Encounter This section includes the information on record at [place] for the En[place]. Date/Time Encounter Type Encounter Description Reason Pro vider Source Dec 11, 2024 12:00 AM Outpatient Encounter EVENT (HISTORICAL) IHE Encounter Template Text not used by [place] Plan of Treatment: Future Appointments (+ 6 months) and Future Tests (+/- 45 days) The Plan of Treatment section includes future care activities for the patient from all [place] [facility]. This section includes future appointments and future orders which are active, pending or scheduled. Future Appointments This section includes appointments that were scheduled to occur 6 months from the date of the Encounter, up to a maximum of 20 appointments. The data comes from all [place] treatment [facility]. Appointment Date/Time Appointment Type Appointme nt Facility Name Dec 18, 2024 08:15 AM AMBULATORY - MEDICINE [facility] Dec 18, 2024 09:15 AM AMBULATORY - MEDICINE [facility] Dec 18, 2024 11:15 AM AMBULATORY - MEDICINE [facility] Active, Pending, and Scheduled Orders This section includes a listing of several types of active, pending, and scheduled orders, including clinic medications orders, diagnostic test orders, procedure orders and consult orders; where the start date of the order is 45 days before the date of the Encounter or 45 days after the date of theEncounter. The data comes from all [facility]. Test Date/Time Test Type Test Details Facility Name Dec 11, 2024 03:47 PM Consult Order MED DERMAT OLOGY OUTPATIENT Cons Telehealth Case Manager's Choice [facility] Dec 25, 2024 12:00 AM Laboratory - Chemi stry Order PANEL 1 [id number] SP ONCE [facility] Dec 25, 2024 12:00 AM Laboratory - Chemi stry Order BNP (KEITH) [id number] SP [facility] Lab Results: +/- 30 days of [...] Type Comment Dec 11, 2024 12:05 PM [facility] GLYCOHEMOGLOBIN BLOOD Specimen Type: BLOOD Comment: Prediabetes: 5.7%-6.4% Diabetes: >= 6.5% [place] guidelines for A1c interpretation: Glycemic control targets are based on Shared Decision Making between clinicians and patients. Criteria used to establish an A1c target recommendation can be found at https://www.ne. ov/qualityandpat ientsafety/ and include the use of [...] and 9.27. Ref: https://ngsp.org /CAPdata.asp. The in-house [employer] PF-Guardly D-100 analyzer has a historical CV <= 2%. Contact the laboratory for further performance characteristics of this assay. Ordering Provider: IRASEMA GIRON Report Released Date/Time: Dec 11, 2024 11:48 AM Reporting Lab: [address] [address] Performing Lab: [address] [address] GLYCOHEMOGLOBIN 5.1 4.4-5.6 Dec 11, 2024 12:05 PM [facility] LIPID PROFILE PLASMA Specimen Type: PLASM [...] Dec 11, 2024 11:48 AM Reporting Lab: [address] [address] Performing Lab: [address] [address] CHOLESTEROL 151 mg/dL 0-199 TRIGLYCERIDE 60 mg/dL 0-149 HDL CHOLESTEROL 72 mg/dL H 40-69 DIRECT LDL CHOL. 70 mg/dL 0-100 Dec 11, 2024 12:05 PM [facility] CBC/PLT BLOOD Specimen Type: BLOOD No comment entered. Ordering Provider: IRASEMA GIRON Report Released Date/Time: Dec 11, 2024 11:48 AM Reporting Lab: [address] [address] Performing Lab: [address] [address] WBC 8.4 10*3/uL 5.0-10.0 RBC 4.51 10*6/uL L 4.6-6.2 HGB 13.2 g/dL L 14.0-18.0 HCT 40.5 L 42.0-52.0 MCV 89.8 fL 80.0-94.0 MCH 29.3 pg 27.0-31.0 MCHC 32.6 g/dL 32.0-36.0 PLT 241 10*3/uL 150-450 MPV 10.3 fL 9.0-13.1 RDW 13.2 11.0-16.0 NRBC 0.0 0.0-0.0 Dec 11, 2024 12:05 PM [facility] PANEL 5 PLASMA Specimen Type: PLASM [...] Dec 11, 2024 11:48 AM Reporting Lab: [address] [address] Performing Lab: [address] [address] CREATININE 0.60 mg/dL L 0.72-1.25 UREA NITROGEN [...] PHOS 64 U/L 40-150 eGFR (CKD-EPI) >90 Vital Signs: All taken on the encounter date This section contains inpatient and outpatient Vital Signs collected on the date of the Encounter. Date/Time Temperature Pulse Blood Pressure Respiratory Rate SP02 Pain Height Weight Body Mass Index Source Dec 11, 2024 11:24 AM 97.6 89 133/76 94 6 133.4 20 [facility] Social History: Smoking Status (Most [...] Facil ity Mar 18, 2023 10:00 AM [place]-TOBACCO FORMER USER [facility] Tobacco Use History This section includes a history of the smoking, or tobacco-related health factors, that were collected on or before the date of the Encounter. The data comes from the [place] facility where the Encounter took place. Date/Time Smoking Status/Tobacco Use Comment F acility Mar 18, 2023 10:00 AM [place]-TOBACCO QUIT 5 TO < 15 YRS [facility] Apr 30, 2022 11:00 AM [place]-TOBACCO FORMER USER [facility] Apr 30, 2022 11:00 AM VA-TOBACCO QUIT 15 YRS OR MORE [facility] Apr 24, 2021 09:30 AM VA-TOBACCO FORMER USER [facility] Apr 24, 2021 09:30 AM VA-TOBACCO QUIT 5 TO < 15 YRS [facility] Feb 14, 2021 10:00 AM VA-TOBACCO FORMER USER [facility] Feb 14, 2021 10:00 AM VA-TOBACCO QUIT 15 YRS OR MORE [facility] Apr 20, 2018 11:36 AM VA-TOBACCO FORMER USER [facility] Apr 20, 2018 11:36 AM VA-TOBACCO QUIT 15 YRS OR MORE [facility] Feb 09, 2017 10:00 AM V9 QUIT TOBACCO >7 YEARS AGO [facility] Feb 11, 2015 10:54 AM V9 QUIT TOBACCO >7 YEARS AGO [facility] Mar 16, 2014 08:35 AM V9 QUIT TOBACCO >1 2 MO & <7 YRS AGO [facility] Mar 16, 2014 08:35 AM V9 TOBACCO OFFERED [facility] Advance Directives: All historical and current Section Date Range: From patient's date of to the date document was created. This section includes ALL of a patient's completed or amended [place] Advance and Rescinded Directives. The entries below indicate that a directive exists for the patient, but an actual copy is not included with this document. The data comes from all [place] facilities. Date Advance Directives Provider Source Apr 16, 2010 ADVANCE DIRECTIVE ALEXEY SHEPHERD
--- OUTSIDE RECORDS SUMMARY | 2024-12-11 07:00 | XMS_ITS | Encounter Summary ---
Author Name [facility] [place] [facility] [place] [facility] [place] Address [address] [place] [address] Care Team Providers Care Body Engineer Name Role Phone IRASEMA GIRON Primary [...] PART A Jun 04, 2009 PART A [id number] [phone] [place] PATIENT MEDICARE (WNR) MEDICARE (M) PART A Jun 04, 2009 PART A [id number] [place] PATIENT MEDICARE (WNR) MEDICARE (M) PART A Jun 04, 2009 PART A [id number] [phone] [place] PATIENT MEDICARE (WNR) MEDICARE (M) PART A Jun 04, 2009 PART A [id number] [place] PATIENT MEDICARE (WNR) MEDICARE (M) PART A Jun 04, 2009 PART A [id number] [phone] [place] PATIENT Selected Encounter This section includes the information on record at [place] for the Encounter. Date/Time Encounter Type Encounter Description Reason Provider Source Dec 11, 2024 11:00 AM OFFICE O/P EST MOD 30 MIN PRIMARY CARE/MEDICINE ICD-10-CM I25.10 [place] heart disease of [place] coronary artery w/o janett GIRONLETHA IHBrian Encounter Template Text not used by [place] Assessments - Encounter Diagnoses This section includes the primary and secondary diagnoses documented for the Encounter. 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 This section includes future appointments and future orders which are active, pending or scheduled. Future Appointments This section includes appointments that were scheduled to occur 6 months from the date of the Encounter, up to a maximum of 20 appointments. The data comes from all [place] treatment [facility]. Appointment Date/Time Appointment Type Appointme nt Facility Name Dec 18, 2024 08:15 AM AMBULATORY - MEDICINE [facility] Dec 18, 2024 09:15 AM AMBULATORY - MEDICINE [facility] Dec 18, 2024 11:15 AM AMBULATORY MEDICINE [facility] Active, Pending, and [...] of theEncounter. The data comes from all [place] treatment facilities. 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 Radiology Reports and Pathology [...] BLOOD Comment: Prediabetes: 5.7%-6.4% Diabetes: >= 6.5% [facility] guidelines for A1c interpretation: Glycemic control targets are based on Shared Decision Making between clinicians and patients. Criteria used to establish an A1c target recommendation can be found at https://www.in. ov/qualityandpat ientsafety/ and include the use of [...] and 9.27. Ref: https://ngsp.org /CAPdata.asp. The in-house When You Wish-VisionGate D-100 analyzer has a historical CV <= 2%. Contact the laboratory for further performance characteristics of this assay. Ordering Provider: IRASEMA GIRON Report Released Date/Time: Dec 11, 2024 11:48 AM Reporting Lab: [address] [address] Performing Lab: [address] [address] GLYCOHEMOGLOBIN 5.1 4.4-5.6 Dec 11, 2024 12:05 PM [facility] LIPID PROFILE PLASMA Specimen Type: PLASM [...] Dec 11, 2024 11:48 AM Reporting Lab: [address] [address] Performing Lab: [address] [address] CHOLESTEROL 151 mg/dL 0-199 TRIGLYCERIDE 60 mg/dL 0-149 HDL CHOLESTEROL 72 mg/dL H 40-69 DIRECT LDL CHOL. 70 mg/dL 0-100 Dec 11, 2024 12:05 PM [facility] CBC/PLT BLOOD Specimen Type: BLOOD No comment entered. Ordering Provider: IRASEMA GIRON Report Released Date/Time: Dec 11, 2024 11:48 AM Reporting Lab: [address] [address] Performing Lab: [address] [address] WBC 8.4 10*3/uL 5.0-10.0 RBC 4.51 10*6/uL L 4.6-6.2 HGB 13.2 g/dL L 14.0-18.0 HCT 40.5 L 42.0-52.0 MCV 89.8 fL 80.0-94.0 MCH 29.3 pg 27.0-31.0 MCHC 32.6 g/dL 32.0-36.0 PLT 241 10*3/uL 150-450 MPV 10.3 fL 9.0-13.1 RDW 13.2 11.0-16.0 NRBC 0.0 0.0-0.0 Dec 11, 2024 12:05 PM [facility] PANEL 5 PLASMA Specimen Type: [...] Dec 11, 2024 11:48 AM Reporting Lab: [address] [address] Performing Lab: [address] [address] CREATININE 0.60 mg/dL L 0.72-1.25 UREA NITROGEN [...] 133/76 94 6 133.4 20 [place] [facility] Social History: Smoking Status (Most [...] 18, 2023 10:00 AM VA-TOBACCO FORMER USER [facility] Tobacco Use History This section includes a history of the smoking, or tobacco-related health factors, that were collected on or before the date of the Encounter. The data comes from the [place] facility where the Encounter took place. Date/Time Smoking Status/Tobacco Use Comment F acility Mar 18, 2023 10:00 AM VA-TOBACCO QUIT 5 TO < 15 YRS [facility] Apr 30, 2022 11:00 AM VA-TOBACCO FORMER USER [facility] Apr 30, 2022 11:00 AM VA-TOBACCO QUIT 15 YRS OR MORE [facility] Apr 24, 2021 09:30 AM VA-TOBACCO FORMER USER [facility] Apr 24, 2021 09:30 AM VA-TOBACCO QUIT 5 TO < 15 YRS [facility] Feb 14, 2021 10:00 AM VA-TOBACCO FORMER USER [facility] Feb 14, 2021 10:00 AM VA-TOBACCO QUIT 15 YRS OR MORE [facility] Apr 20, 2018 11:36 AM VA-TOBACCO FORMER USER [facility] Apr 20, 2018 11:36 AM VA-TOBACCO QUIT 15 YRS OR MORE [facility] Feb 09, 2017 10:00 AM V9 QUIT TOBACCO >7 YEARS AGO [facility] Feb 11, 2015 10:54 AM V9 QUIT TOBACCO >7 YEARS AGO [facility] Mar 16, 2014 08:35 AM V9 QUIT TOBACCO >1 2 MO & <7 YRS AGO [facility] Mar 16, 2014 08:35 AM V9 TOBACCO OFFERED [facility] Advance Directives: All historical and [...] Encounter. Date/Time Encounter Note(s) Provider Source Dec 11, 2024 03:12 PM MEDICATION MGT NOTE: LOCAL TITLE: OUTPATIENT ESSENTIAL MEDICATION LIST FOR REVIEW (EM STANDARD TITLE: MEDICATION MGT NOTE DATE OF NOTE: DEC 11, 2024@15:12 ENTRY DATE: DEC 11, 2024@15:12:20 AUTHOR: IRASEMA GIRON EXP COSIGNER: URGENCY: STATUS: COMPLETED Review of medications include: Patient allergies (Remote and Local) and active and pending prescriptions dispensed from this [place] (local) and dispensed from another [place] or [facility] facility (remote and pending) as well as [...] FACILITY ALLERGY/ADR -------- 516^[facility]^516 VACCINES ACTIVE OUTPATIENT MEDICATIONS LOCAL/REMOTE ALBUTEROL 90MCG (CFC-F) 200D ORAL INHL Directions: INHALE 2 PUFFS BY INHALATION EVERY 4 HOURS NEEDED FOR WHEEZING, COUGHING OR SHORTNESS OF BREATH Quantity: 3 for 90 days Issued: 03/09/24 Filled: 10/23/24 Expires: 03/10/25 Refills: 1 Status: ACTIVE ALBUTEROL SO4 0.083% INHL 3ML Directions: USE 1 AMP (2.5MG/3ML) IN NEBULIZER EVERY 6 HOURS NEEDED FOR BREATHING Quantity: 120 for 90 days Issued: 11/20/24 Filled: 11/20/24 Expires: 11/21/25 Refills: 3 Status: ACTIVE MOMETASONE 200MCG/ACTUAT 120D ORAL INHL Directions: INHALE 2 PUFFS BY MOUTH TWICE A DAY FOR BREATHING -RINSE MOUTH AND SPIT AFTER EACH USE Quantity: 3 for 90 days Issued: 11/20/24 Filled: 11/20/24 Expires: 11/21/25 Refills: 3 Status: ACTIVE OLODATEROL/TIOTROP 2.5MCG/ACTUAT 60D INH Directions: INHALE 2 PUFFS BY MOUTH DAILY FOR BREATHING Quantity: 3 for 90 days Issued: 11/20/24 Filled: 11/20/24 Expires: 11/21/25 Refills: 3 Status: ACTIVE APIXABAN 5MG TAB Directions: TAKE ONE TABLET BY MOUTH TWICE A DAY TO THIN BLOOD. CALL ANTICOAGULATION CLINIC [phone] WITH QUESTIONS OR CONCERNS Quantity: 180 for 90 days Issued: 07/31/24 Filled: 12/11/24 Expires: 08/01/25 Refills: 2 Status: ACTIVE/SUSP ARTIFICIAL TEARS POLYVINYL ALCOHOL Directions: PUT 1 DROP IN EYE(S) DIRECTED FOR DRY EYES Quantity: 15 for 30 days Issued: 11/15/24 Filled: 12/11/24 Expires: 11/16/25 Refills: 0 Status: ACTIVE/SUSP NITROGLYCERIN 0.4MG SL TAB BTL 25 Directions: DISSOLVE ONE TABLET UNDER THE TONGUE EVERY 5 MINUTES UP TO 3 DOSES FOR CHEST PAIN -IF NO RELIEF CALL 911 Quantity: 1 for 30 days Issued: 07/31/24 Filled: 12/11/24 Expires: 08/01/25 Refills: 1 Status: ACTIVE/SUSP No remote medications found. PENDING OUTPATIENT MEDICATIONS (LOCAL/REMOTE): No local medications found. No remote medications found. ACTIVE NONVA MEDICATIONS (LOCAL): NO KNOWN NON-VA MEDS Directions: PT ASKED ABOUT NON-VA MEDS MISCELLANEOUS DIRECTED Status: ACTIVE OUTPATIENT MEDICATIONS (LOCAL)WITHIN 90 DAYS: APIXABAN 5MG TAB Directions: TAKE ONE TABLET BY MOUTH TWICE A DAY TO THIN BLOOD. CALL ANTICOAGULATION CLINIC [phone] WITH QUESTIONS OR CONCERNS Quantity: 180 for 90 days Issued: 07/31/24 Filled: 12/11/24 Expires: 08/01/25 Refills: 2 Status: ACTIVE/SUSP ARTIFICIAL TEARS POLYVINYL ALCOHOL Directions: PUT 1 DROP IN EYE(S) DIRECTED FOR DRY EYES Quantity: 15 for 30 days Issued: 11/15/24 Filled: 12/11/24 Expires: 11/16/25 Refills: 0 Status: ACTIVE/SUSP NITROGLYCERIN 0.4MG SL TAB BTL 25 Directions: DISSOLVE ONE TABLET UNDER THE TONGUE EVERY 5 MINUTES UP TO 3 DOSES FOR CHEST PAIN -IF NO RELIEF CALL 911 Quantity: 1 for 30 days Issued: 07/31/24 Filled: 12/11/24 Expires: 08/01/25 Refills: 1 Status: ACTIVE/SUSP DISCONTINUED OUTPATIENT MEDICATIONS (LOCAL) WITHIN 90 DAYS: APIXABAN 5MG TAB Directions: TAKE ONE TABLET BY MOUTH TWICE A DAY TO THIN BLOOD. CALL ANTICOAGULATION CLINIC [phone] WITH QUESTIONS OR CONCERNS Quantity: 180 for 90 days Issued: 07/31/24 Filled: 12/11/24 Expires: 08/01/25 Refills: 2 Status: ACTIVE/SUSP ARTIFICIAL TEARS POLYVINYL ALCOHOL Directions: PUT 1 DROP IN EYE(S) DIRECTED FOR DRY EYES Quantity: 15 for 30 days Issued: 11/15/24 Filled: 12/11/24 Expires: 11/16/25 Refills: 0 Status: ACTIVE/SUSP NITROGLYCERIN 0.4MG SL TAB BTL 25 Directions: DISSOLVE ONE TABLET UNDER THE TONGUE EVERY 5 MINUTES UP TO 3 DOSES FOR CHEST PAIN -IF NO RELIEF CALL 911 Quantity: 1 for 30 days Issued: 07/31/24 Filled: 12/11/24 Expires: 08/01/25 Refills: 1 Status: ACTIVE/SUSP ALBUTEROL 90MCG (CFC-F) 200D ORAL INHL Directions: INHALE 2 PUFFS BY INHALATION EVERY 4 HOURS NEEDED FOR WHEEZING, COUGHING OR SHORTNESS OF BREATH Quantity: 3 for 90 days Issued: 12/09/23 Filled: 01/27/24 Expires: 12/09/24 Refills: 3 Status: DISCONTINUED AMLODIPINE BESYLATE 5MG TAB Directions: TAKE ONE TABLET BY MOUTH DAILY FOR HIGH BLOOD PRESSURE -DO NOT DRINK GRAPEFRUIT JUICE WHILE ON THIS DRUG Quantity: 90 for 90 days Issued: 04/03/24 Filled: 04/04/24 Expires: 04/04/25 Refills: 3 Status: DISCONTINUED CLINIC MEDICATIONS (LOCAL): No local medications found. /mona/ IRASEMA GIRON NURSE PRACTITIONER Signed: 12/11/2024 15:12 IRASEMA GIRON [facility] Dec 11, 2024 11:25 AM NURSE PRACTITIONER NOTE: LOCAL TITLE: NURSE PRACTITIONER PROGRESS NOTE STANDARD TITLE: NURSE PRACTITIONER NOTE DATE OF NOTE: DEC 11, 2024@11:25 ENTRY DATE: DEC 11, 2024@11:25:03 AUTHOR: IRASEMA GIRON EXP COSIGNER: URGENCY: STATUS: COMPLETED NURSE PRACTITIONER PROGRESS NOTE Has ADDENDA Patient is a 74 to be seen in primary care clinic today. PROBLEM LIST : Active problems - Computerized Problem List is the source for the followin. Exposure to Potentially Hazardous Substance (SCT [id number]) AO 2. Heart failure 3. Vitamin D deficiency 4. Old myocardial infarction 5. History of cardiac arrest 6. Sensorineural hearing loss, bilateral 7. Mixed hyperlipidemia 8. 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 Peripheral arterial occlusive disease 10. Renal artery stenosis 11. Moderate chronic obstructive pulmonary disease LDCT done 05/2023 and repeat in 05/2024 12. Anxiety (SNOMED CT 05999801) 13. Depression (SNOMED CT 17632074) 14. Benign essential hypertension (SNOMED CT 7558965) 15. Carotid artery stenosis 16. Gastroesophageal reflux disease 17. Posttraumatic stress disorder 18. Tinnitus 19. Hearing loss 20. Spinal stenosis in cervical region 21. 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 FAMILY MEDICAL HISTORY: M: PE (post fx) F: malignant brain tumor, unkn other 2 brothers: 1 w/ hx polio 1 etoh issues 4 sisters: all obese & Ana had Ca of unkn site 1 biological son: [employer] Outside Providers: NONE Service Connected disability (s): POST-TRAUMATIC STRESS DISORDER 100% SC 2ND DEGREE SMITH 0% SC TINNITUS 10% SC IMPAIRED HEARING 0% SC HYPERTENSIVE VASCULAR DISEASE 10% SC ARTERIOSCLEROTIC HEART DISEASE 60% SC 2ND DEGREE SMITH 0% SC OEF/OIF SERVICE - NONE REPORTED Active Outpatient Medications (including Supplies): Active Outpatient Medications Status 1) ALBUTEROL 90MCG (CFC-F) 200D ORAL INHL INHALE 2 PUFFS BY ACTIVE INHALATION EVERY 4 HOURS NEEDED FOR WHEEZING, COUGHING OR SHORTNESS OF BREATH 2) ALBUTEROL SO4 0.083% INHL 3ML USE 1 AMP (2.5MG/3ML) IN ACTIVE NEBULIZER EVERY 6 HOURS NEEDED Indication: FOR BREATHING 3) APIXABAN 5MG TAB TAKE ONE TABLET BY MOUTH TWICE A DAY TO ACTIVE THIN BLOOD. CALL ANTICOAGULATION CLINIC [phone] WITH QUESTIONS OR CONCERNS 4) ARTIFICIAL TEARS POLYVINYL ALCOHOL PUT 1 DROP IN EYE(S) ACTIVE DIRECTED Indication: FOR DRY EYES 5) MOMETASONE 200MCG/ACTUAT 120D ORAL INHL INHALE 2 PUFFS BY ACTIVE MOUTH TWICE A DAY -RINSE MOUTH AND SPIT AFTER EACH USE Indication: FOR BREATHING 6) NITROGLYCERIN 0.4MG SL TAB BTL 25 DISSOLVE ONE TABLET UNDER ACTIVE THE TONGUE EVERY 5 MINUTES UP TO 3 DOSES -IF NO RELIEF CALL 911 Indication: FOR CHEST PAIN 7) OLODATEROL/TIOTROP 2.5MCG/ACTUAT 60D INH INHALE 2 PUFFS BY ACTIVE MOUTH DAILY Indication: FOR BREATHING Active Non-VA Medications Status 1) Non-VA NO KNOWN NON-VA MEDS PT ASKED ABOUT NON-VA MEDS ACTIVE MISCELLANEOUS DIRECTED 8 Total Medications MEDICATIONS PRESCRIBED OUTSIDE [facility] AND/OR [facility] MEDICATIONS: MEDICATION RECONCILIAITION: The Outpatient Essential Medication List for review (EMLR) was reviewed with the patient/caregiver and the patient was provided an update reconciled medication list. Discrepancies were corrected or sent to the ordering provider to correct. ( X ) [place]/caregiver declined a copy of EMLR and stated they will maintain their own list. ( ) [place]/caregiver was handed a copy of EMLR at today's visit ( ) [place]/caregiver requests copy of EMLR to be mailed to them at their address ( ) [place]/caregiver requests copy of EMLR to be sent to them via Secure Messaging ALLERGIES: LISINOPRIL CC/HPI: Routine follow-up and evaluation of following medical problem(s): Coronary artery disease/atrial fibrillation/hypertension: followed by cardiology, has appt next week. BP is stable at check in; 133/73. He is wearing zoll device, notes from [facility] reviewed in [facility]. Pt is taking his apixaban BID as prescribed; he would like refill of nitro tabs. Unclear what other medications pt is taking, he does not know names, discharge medication list from [facility] is different than previous medications on pt [facility] list. Asked pt if he could gather medication bottles and call nurse this afternoon Chronic Obstructive pulmonary disease: following with pulmonary, note from november reviewed. pt reports compliance with new inhalers. states he has trouble holding his breath for 10 secs but otherwise is doing well with inhalers feels breathing is at baseline today. Skin lesion: pt has hard lesion to left side of calf, nickel in size. pt reports area is very sore to the touch. He also non-healing area to right Nare, states this started as a pimple but now is an open lesion that will not heal. HEALTH MAINTENANCE: COLONOSCOPY: n/a IM - Immunizations ADMINISTERED Immunization Series Date Facility Reaction Info COVID-19 (MODERNA), MRNA, LNP-S,* 2 08/24/2020 [facility] COVID-19 (MODERNA), MRNA, LNP-S,* 1 07/27/2020 [facility] COVID-19 (PFIZER), MRNA, LNP-S, * 1 06/24/2023 [facility]* DTP 03/16/2014 [facility]* FLU,3 YRS (HISTORICAL) 03/30/2016 [facility]* FLU,3 YRS (HISTORICAL) 04/30/2015 [facility]* FLU,3 YRS (HISTORICAL) 03/16/2014 [facility]* INFLUENZA A & B (HISTORICAL) 09/09/2017 [facility]* INFLUENZA A & B (HISTORICAL) 03/30/2016 [facility]* INFLUENZA A & B (HISTORICAL) 04/30/2015 [facility]* INFLUENZA A & B (HISTORICAL) 03/16/2014 [facility]* INFLUENZA, HIGH-DOSE, QUADRIVALE* 06/24/2023 [facility]* INFLUENZA, HIGH-DOSE, QUADRIVALE* C 03/18/2023 [facility]* INFLUENZA, HIGH-DOSE, TRIVALENT,* 03/30/2016 [facility]* <C> INFLUENZA, SPLIT VIRUS, QUADRIVA* 04/30/2022 [facility]* INFLUENZA, SPLIT VIRUS, QUADRIVA* 04/24/2021 [facility]* INFLUENZA, SPLIT VIRUS, QUADRIVA* 03/19/2020 [facility]* INFLUENZA, SPLIT VIRUS, QUADRIVA* C 05/25/2019 [facility]* INFLUENZA, SPLIT VIRUS, TRIVALEN* 04/05/2018 [facility]* <C> INFLUENZA, UNSPECIFIED FORMULATI* 04/10/2020 [facility] [id number] (HISTORICAL) 08/05/2016 [facility]* [id number] (HISTORICAL) 02/11/2015 [facility]* PNEUMOCOCCAL POLYSACCHARIDE PPV23 04/30/2015 [facility]* PNEUMOCOCCAL, UNSPECIFIED FORMUL* 04/30/2015 [facility]* PNEUMOCOCCAL, UNSPECIFIED FORMUL* 02/11/2015 [facility]* RSV, BIVALENT, PROTEIN SUBUNIT R* 08/05/2023 [facility]* TDAP 1 05/14/2024 [facility] [facility] TDAP 03/16/2014 [facility]* <C> TDAP (HISTORICAL) 03/16/2014 [facility]* ZOSTER LIVE 08/14/2014 [facility] <C> ZOSTER RECOMBINANT 2 03/19/2020 [facility]* ZOSTER RECOMBINANT 1 07/14/2019 [facility]* CONTRAINDICATED No data available REFUSED ======= Immunization Date Facility Info COVID-19 (MODERNA), MRNA, LNP-S,* 12/11/2024 [facility]* <I> COVID-19 (PFIZER), MRNA, LNP-S, * 09/22/2022 [facility]* <I> PNEUMOCOCCAL CONJUGATE, UNSPECIF* 12/11/2024 [facility]* <I> PNEUMOCOCCAL CONJUGATE, UNSPECIF* 07/14/2023 [facility]* <C> PNEUMOCOCCAL CONJUGATE, UNSPECIF* 09/22/2022 [facility]* <I> TD(ADULT) UNSPECIFIED FORMULATION 02/04/2024 [facility]* <C> <C> See the Detailed Immunizations Health Summary Component[DIM] for Comments <I> See the Detailed Immunizations Health Summary Component[DIM] for Additional Information * Value is truncated; see the Detailed Immunizations Health Summary Component[DIM] for complete text VITAL SIGNS: BP: 133/72 PULSE: 89 TEMPERATURE: 97.6 WT: 133 O2: 94% PAIN: 6 PHYSICAL EXAM: GENERAL: Well-groomed, well developed, appears well nourished in no acute or obvious distress SKIN: Nickel sized hard lesion to lateral aspect of left leg right Nare with ulcerated lesion HEAD: NC/AT EYES: PERRLA; Conjunctivae clear; Eye lids normal EARS: External inspection without deformity Nares: Patent Throat: [place] & moist, no dental caries, no tonsillar exudate NECK: Neck supple, no cervical lymphadenopathy, no thyroidmegaly RESP: Lung sounds are clear to auscultation Breathing is non-labored without use of accessory muscles. There is symmetric chest wall expansion. CV: RRR, without M/R/G zoll monitor in place ABD: The abdomen is soft and otherwise benign with positive bowel sounds throughout abdomen. MS: BLE negative edema; skin is intact on LEs; No hand digital cyanosis. Ambulates w/o assistance. Normal steady gait. NEURO: General behavior, LOC, thought content and emotional status are normal. Memory Intact; Follows commands and converses appropriately; No involuntary movements. PSYCH: Speech is at a normal pace and volume. Thought process is relevant during interview. Affect and mood appropriate. No active suicidal ideation at this time and no homicidal ideation reported. No overt signs of psychosis. LABS: CBC/PLT, BLOOD - Partial Panel found WBC , BLOOD, 05/24/24@1005 8.4 K/cmm (5.0 - 10.0) RBC, BLOOD, 05/24/24@1005 4.27 LM/cmm (4.6 - 6.2) HGB, BLOOD, 05/24/24@1005 12.7 Lg/dL (14.0 - 18.0) HCT, BLOOD, 05/24/24 39.1 L% (42.0 - 52.0) MCV, BLOOD, 05/24/24 91.6 fL (80.0 - 94.0) MCH, BLOOD, 05/24/24 29.7 pg (27.0 - 31.0) MCHC, BLOOD, 05/24/24 32.5 g/dL (32.0 - 36.0) RDW, BLOOD, 05/24/24 15.1 % (11.0 - 16.0) PLT, BLOOD, 05/24/24 238 K/cmm (150 - 450) MPV, BLOOD, 05/24/24 9.2 fL (9.0 - 13.1) NRBC, BLOOD, 05/24/24 0.0 % (0.0 - 0.0) K 4.8 mmol/L (04/27/2024 11:12) BUN 7 mg/dL L (04/27/2024 11:12) CREAT No data available GLUCOSE 96 mg/dL (04/27/2024 11:12) CHOL 165 mg/dL (07/15/2023 08:14) HDL 74 mg/dL H (07/15/2023 08:14) LDL 0 TRIG 62 mg/dL (07/15/2023 08:14) GLYCO HGB 0 0 MICROALBU 0 TSH 1.1763 mIU/mL (07/15/2023 08:14) PSA 3.176 ng/mL (07/15/2023 08:14) -ASSESSMENT Coronary artery disease atrial fibrillation hypertension Chronic Obstructive pulmonary disease Skin lesion PLAN: annual labs asked pt to call and report medications to RN so we can update prescriptions to what he is currently taking keep upcoming cards appt continue inhalers derm consult -EDUCATION: I recommend risk factor modifications: -attaining and maintaining ideal body weight -engaging in regular physical activity -consuming foods low in saturated fat, cholesterol, and calories -avoiding tobacco -minimize use alcohol -The [place]/caregiver voiced understanding of topics covered/discussed in today's visit. Exit sheet given. -LABWORK: Today's labs: ( )FASTING (X)NON-FASTING ( ) NO LABS WITH THIS VISIT ( ) RETURN FOR LABS: -CLERICAL ORDERS: RECALL: 6 months, non-fasting/PRN I spent 30 minutes, entering clinical information into CPRS, reviewing history, performing an exam and evaluation, interpreting result, counseling patient/family/caregiver, reviewing x- rays/mri/labs, ordering meds/test/procedures, referring and communicating with consulting health critical care technician, and care coordination. Patient advised if an appointment is needed sooner than the recommended recall, call telephone care for follow-up. CLINICAL REMINDERS IF APPLICABLE: Diagnostic Colonoscopy: (+) FIT/FOBT identified. A diagnostic Colonoscopy is due based on information available to this reminder. A diagnostic colonoscopy is not recommended/indicated. Reason: pt could not tolerate further colonoscopy due lungs/heart Due to patient's age, risk level, and/or co-morbid conditions, discontinuation of asymptomatic colorectal cancer screening/surveillance is recommended. This recommendation has been discussed with the patient and/or guardian /damaris GIRON NURSE PRACTITIONER Signed: 12/11/2024 15:12 12/12/2024 ADDENDUM STATUS: COMPLETED Can you f/u with pt home medications. labs show low sodium, can replace through diet and repeat level in 1 month. /damaris GIRON NURSE PRACTITIONER Signed: 12/12/2024 15:47 Receipt Acknowledged By: * AWAITING SIGNATURE * NIKO SHORT 12/13/2024 ADDENDUM STATUS: COMPLETED is currently out running errands; requests call back this afternoon. /CYRUS Flannery, RN [employer] Chemistry Tutor Signed: 12/13/2024 12:25 12/14/2024 ADDENDUM STATUS: COMPLETED Attempted to contact , no answer. Message left requesting return call. /mona/ CYRUS Neumann, RN Pc Chemistry Tutor Signed: 12/14/2024 10:13 12/14/2024 ADDENDUM STATUS: COMPLETED Attempted to contact , no answer. Message left requesting return call. /CYRUS Flannery, RN Pc Chemistry Tutor Signed: 12/14/2024 15:21 12/15/2024 ADDENDUM STATUS: COMPLETED Called patient, no answer, left general message to return phone call /mona/ MARIA ISABEL BRIDGES, RN PC INK JET OPERATOR Signed: 12/15/2024 08:32 12/18/2024 ADDENDUM STATUS: COMPLETED Called pt, no answer. /mona/ Kiya PierreMSN,RN Patient Chemistry Tutor Signed: 12/18/2024 16:28 IRASEMA GIRON [facility] Dec 11, 2024 11:14 AM PRIMARY CARE NURSING NOTE: LOCAL TITLE: Pc Health Tech/percussion instructor Note STANDARD TITLE: PRIMARY CARE NURSING NOTE DATE OF NOTE: DEC 11, 2024@11:14 ENTRY DATE: DEC 11, 2024@11:15:01 AUTHOR: PRO MARTINEZIGNER: URGENCY: STATUS: COMPLETED The patient was given a list of his current medications, instructed to review and discuss any changes or problems with their provider. Patient advised to carry a list of current medications and any allergies with them in the event of emergency situations. Yes - [place]/Caregiver verbalized understanding of topics discussed and education provided Alcohol Use Screen (AUDIT-C): Alcohol Screen: SCREEN FOR ALCOHOL (AUDIT-C) An alcohol screening test (AUDIT-C) was negative (score=1). 1. How often did you have a drink containing alcohol in the past year? Consider a drink to be a 12 ounce can or bottle of regular beer, 8 ounces of malt liquor, a 5 ounce glass of table wine, or a 1.5 ounce shot of liquor (like scotch, gin, or vodka). Monthly or less 2. How many drinks containing alcohol did you have on a typical day when you were drinking in the past year? One or two drinks 3. How often did you have six or more drinks on one occasion in the past year? Never COVID-19 Immunization: Refused Moderna Monovalent COVID-19 vaccine Immunization: COVID-19 (MODERNA), MRNA, LNP-S, PF, 50 MCG/0.5 ML (AGES 12+ YEARS) Refusal Reason: PATIENT DECISION Patient refuses all immunization(s) in the COVID-19 group Date Documented: 12/11/24 11:17 Depression Screening: Perform PHQ-2 A PHQ-2 screen was performed. The score was 0 which is a negative screen for depression. Over the past two weeks, how often have you been bothered by the following problems? 1. Little interest or pleasure in doing things Not at all 2. Feeling down, depressed, or hopeless Not at all Homelessness/Food Insecurity Screen: In the past 2 months, have you been living in stable housing that you own, rent, or stay in as part of a household? Yes - Living in stable housing. Are you worried or concerned that in the next 2 months you may NOT have stable housing that you own, rent, or stay in as part of a household? No - Not worried about housing near future The [place] reports the following: Within the past 12 months, you worried whether your food would run out before you got money to buy more. Never true Within the past 12 months, the food you bought just didn't last and you didn't have money to get more. Never true Influenza Immunization: No influenza vaccination was received during the recent influenza season. Sexual Orientation: The patient thinks of their sexual orientation as: Straight or Heterosexual Learning Readiness Assessment: Preferred language for discussing health care Nicaraguan CONCUR WITH PREVIOUSLY DOCUMENTED ASSESSMENT Comment: na RESPONSE Pneumococcal Conjugate Vaccine (PCV15/PCV20/PCV21): Refuses PCV vaccine Immunization: PNEUMOCOCCAL CONJUGATE, UNSPECIFIED FORMULATION Refusal Reason: PATIENT DECISION Patient refuses all immunization(s) in the PneumoPCV group Date Documented: 12/11/24 11:19 PAVE Foot Check: A complete foot check was completed at this encounter. VISUAL INSPECTION: Includes inspection for skin breaks, deformity, erythema, trauma, pallor on elevation, dependent rubor, nail deformities, extensive callus and pitting edema. Visual exam results: Normal Comment: slight edema PEDAL PULSES: Includes palpation of dorsalis and posterior tibial pulses and signs/symptoms of vascular compromise like pain, pallor, paresthesia or paralysis. Present (even if diminished) Comment: present but somewhat diminished due to swelling SENSORY CHECK: Includes 10 gram Monofilament ([place]) test of sensation. Intact (Greater than or equal to 80% of sites checked) Abnormal (Less than 80% of sites checked): Intact Comment: intact LOW-RISK: LOW RISK INFORMATION PROVIDED: 1. Advised patient not to walk barefoot. 2. Explained the importance of daily foot checks for changes. 3. Stressed the importance of daily foot hygiene, including bathing and complete drying. The patient verbalized understanding and was offered a detailed handout on diabetic foot care. /mona/ Pro Martinez LPN Staff COMMISSION AUDITOR Signed: 12/11/2024 11:25 PRO MARTINEZ [facility]
--- OUTSIDE RECORDS SUMMARY | 2024-12-13 09:07 | XMS_ITS ---
Author Name [facility] [place] [facility] [facility] [place] Address [address] [place] [address] Care Team Providers Care Draw Frame Operator Name Role Phone IRASEMA GIRON Primary [...] PART A Jun 04, 2009 PART A [id number] [place] PATIENT MEDICARE (WNR) MEDICARE (M) PART A Jun 04, 2009 PART A [id number] [place] PATIENT MEDICARE (WNR) MEDICARE (M) PART A Jun 04, 2009 PART A [id number] [place] PATIENT MEDICARE (WNR) MEDICARE (M) PART A Jun 04, 2009 PART A [id number] [place] PATIENT MEDICARE (WNR) MEDICARE (M) PART A Jun 04, 2009 PART A [id number] [place] PATIENT Selected Encounter This section includes the information on record at [place] for the Encounter. Date/Time Encounter Type Encounter Description Reason Pro vider Source Dec 13, 2024 01:07 PM Outpatient Encounter ADMIN PAT ACTIVTIES (MASNONCT) IHE Encounter Template Text not used by [place] Plan of Treatment: Future Appointments (+ 6 months) and Future Tests (+/- 45 days) The Plan of Treatment section includes future care activities for the patient from all [place] [facility] This section includes future appointments and future orders which are active, pending or scheduled. Future Appointments This section includes appointments that were scheduled to occur 6 months from the date of the Encounter, up to a maximum of 20 appointments. The data comes from all [facility]. Appointment Date/Time Appointment Type Appointme nt Facility Name Dec 18, 2024 08:15 AM AMBULATORY - MEDICINE [facility] Dec 18, 2024 09:15 AM AMBULATORY - MEDICINE [facility] Dec 18, 2024 11:15 AM AMBULATORY - MEDICINE [facility] Active, Pending, and Scheduled Orders This section includes a listing of several types of active, pending, and scheduled orders, including clinic medications orders, diagnostic test orders, procedure orders and consult orders; where the start date of the order is 45 days before the date of the Encounter or 45 days after the date of theEncounter. The data comes from all [facility]. Test Date/Time Test Type Test Details Facility Name Dec 11, 2024 03:47 PM Consult Order MED DERMAT OLOGY OUTPATIENT Cons Climbing Guide's Choice [facility] Dec 25, 2024 12:00 AM Laboratory - Chemi stry Order PANEL 1 [id number] SP ONCE [facility] Dec 25, 2024 12:00 AM Laboratory - Chemi stry Order BNP (KEITH) [id number] SP [facility] Lab Results: +/- 30 days [...] Type Comment Dec 11, 2024 12:05 PM [facility] GLYCOHEMOGLOBIN BLOOD Specimen Type: BLOOD Comment: Prediabetes: 5.7%-6.4% Diabetes: >= 6.5% [facility] guidelines for A1c interpretation: Glycemic control targets are based on Shared Decision Making between clinicians and patients. Criteria used to establish an A1c target recommendation can be found at https://www.ga. ov/qualityandpat ientsafety/ and include the use of [...] and 9.27. Ref: https://ngsp.org /CAPdata.asp. The in-house [employer] D-100 analyzer has a historical CV <= 2%. Contact the laboratory for further performance characteristics of this assay. Ordering Provider: IRASEMA GIRON Report Released Date/Time: Dec 11, 2024 11:48 AM Reporting Lab: [address] [address] Performing Lab: [address] [address] GLYCOHEMOGLOBIN 5.1 4.4-5.6 Dec 11, 2024 12:05 PM [facility] LIPID PROFILE PLASMA Specimen Type: PLASM [...] Dec 11, 2024 11:48 AM Reporting Lab: [address] [address] Performing Lab: [address] [address] CHOLESTEROL 151 mg/dL 0-199 TRIGLYCERIDE 60 mg/dL 0-149 HDL CHOLESTEROL 72 mg/dL H 40-69 DIRECT LDL CHOL. 70 mg/dL 0-100 Dec 11, 2024 12:05 PM [facility] CBC/PLT BLOOD Specimen Type: BLOOD No comment entered. Ordering Provider: IRASEMA GIRON Report Released Date/Time: Dec 11, 2024 11:48 AM Reporting Lab: [address] [address] Performing Lab: [address] [address] WBC 8.4 10*3/uL 5.0-10.0 RBC 4.51 10*6/uL L 4.6-6.2 HGB 13.2 g/dL L 14.0-18.0 HCT 40.5 L 42.0-52.0 MCV 89.8 fL 80.0-94.0 MCH 29.3 pg 27.0-31.0 MCHC 32.6 g/dL 32.0-36.0 PLT 241 10*3/uL 150-450 MPV 10.3 fL 9.0-13.1 RDW 13.2 11.0-16.0 NRBC 0.0 0.0-0.0 Dec 11, 2024 12:05 PM [facility] 5 PLASMA Specimen Type: PLAS KATHLEEN Comment: Estimated Glomerular Filtration Rate (eGFR) calculated [...] Dec 11, 2024 11:48 AM Reporting Lab: [address] [address] Performing Lab: [address] [address] CREATININE 0.60 mg/dL L 0.72-1.25 UREA NITROGEN [...] 03, 2024 01:15 PM VA-TOBACCO NEVER USED [facility] Tobacco Use History This section includes a history of the smoking, or tobacco-related health factors, that were collected on or before the date of the Encounter. The data comes from the [place] facility where the Encounter took place. Date/Time Smoking Status/Tobacco Use Comment F acility Jan 21, 2016 04:53 PM NON-TOBACCO USE INPATIENT [facility] Jan 13, 2016 06:51 AM V9 QUIT TOBACCO >7 YEARS AGO [facility] Advance Directives: All historical and current [...] Encounter. Date/Time Encounter Note(s) Provider Source November 25, 2024 03:05 AM NONVA NOTE: LOCAL TITLE: [facility] CARE COORD PLAN STANDARD TITLE: NONVA NOTE DATE OF NOTE: NOVEMBER 25, 2024@03:05 ENTRY DATE: DEC 13, 2024@13:09:53 AUTHOR: CATINA SHAH EXP COSIGNER: URGENCY: STATUS: COMPLETED Emergency Notification Intake Date Presenting to the Facility: November Date of note has been modified to reflect Date of Service. Reason for modification: HOSPITAL NOTIFICATION DATE/TIME: 11/25/2024 1524 EDT Method of Contact: Notified from ECR worklist Notification ID: [id number] [facility] Referral #: [facility] Name: Hospital: [facility] Address: City: [place] State: [place] Zip Code: Phone : [facility] Facility Point of Contact: Name: GINI PALMA Phone: [phone] Chief complaint: FALL WITH HEAD AND NOSE INJURY Primary Diagnosis: Disposition Discharged FROM ED LATE NOTIFICATION/ENTRY Handoff to PACT/PCP [facility] Community Care was informed this was seen for emergent care. Records requested for upload and review: Pursuant to 38 CFR 17.4020(c)Authorized emergency treatments. Handoff to PACT/PCP for follow up/care coordination as deemed appropriate by the PACT/PCP. /mona/ Catina Shah MSN, teacher education instructor Nurse Coordinator Signed: 12/13/2024 13:12 Receipt Acknowledged By: 12/13/2024 14:09 /mona/ CYRUS Neumann, RN Pc Pet Sitter 12/13/2024 13:18 /mnoa/ IRASEMA GIRON NURSE PRACTITIONER [facility]
--- OUTSIDE RECORDS SUMMARY | 2024-12-15 08:18 | XMS_ITS | Encounter Summary ---
Author Name [facility] [place] [facility] [place] Address [address] [place] [address] Care Team Providers Care Hopper Feeder Name Role Phone IRASEMA GIRON Primary Care [...] PART A Jun 04, 2009 PART A [id number] [place] PATIENT MEDICARE (WNR) MEDICARE (M) PART A Jun 04, 2009 PART A [id number] [place] PATIENT MEDICARE (WNR) MEDICARE (M) PART A Jun 04, 2009 PART A [id number] [place] PATIENT MEDICARE (WNR) MEDICARE (M) PART A Jun 04, 2009 PART A [id number] [place] PATIENT MEDICARE (WNR) MEDICARE (M) PART A Jun 04, 2009 PART A [id number] [place] PATIENT Selected Encounter This section includes the information on record at [place] for the Encounter. Date/Time Encounter Type Encounter Description Reason Provider Source Dec 15, 2024 12:18 PM ELECTROCARDIOGRAM COMPLETE EKG ICD-10-CM I50.9 Heart failure, unspecified LISA RAI Encounter Template Text not used by [place] Assessments - Encounter Diagnoses This section includes the primary and secondary diagnoses documented for the Encounter. Date/Time Primary/Secondary Diagnosis Diagnosis Name Provider Source Dec 19, 2024 03:11 PM PRIMARY Heart failure, unspecified LIZ SERRA [facility] Plan of Treatment: Future Appointments (+ 6 months) and Future Tests (+/- 45 days) The Plan of Treatment section includes future care activities for the patient from all [place] [facility]. This section includes future appointments and future orders which are active, pending or scheduled. Future Appointments This section includes appointments that were scheduled to occur 6 months from the date of the Encounter, up to a maximum of 20 appointments. The data comes from all [facility]. Appointment Date/Time Appointment Type Appointme nt Facility Name Dec 18, 2024 08:15 AM AMBULATORY - MEDICINE [facility] Dec 18, 2024 09:15 AM AMBULATORY - MEDICINE [facility] Dec 18, 2024 11:15 AM AMBULATORY - MEDICINE [facility] Active, Pending, and Scheduled Orders This section includes a listing of several types of active, pending, and scheduled orders, including clinic medications orders, diagnostic test orders, procedure orders and consult orders; where the start date of the order is 45 days before the date of the Encounter or 45 days after the date of theEncounter. The data comes from all [facility]. Test Date/Time Test Type Test Details Facility Name Dec 11, 2024 03:47 PM Consult Order MED DERMAT OLOGY OUTPATIENT Cons Size Roller Operator's Choice [facility] Dec 25, 2024 12:00 AM Laboratory - Chemi stry Order PANEL 1 [id number] SP ONCE [facility] Dec 25, 2024 12:00 AM Laboratory - Chemi stry Order BNP (KEITH) [id number] SP [facility] Lab Results: +/- 30 days of the encounter This section includes the Chemistry and Hematology Lab Results on record with [place] for the patient. Radiology Reports and Pathology Reports are provided separately, in subsequent sections. Lab Results This section contains the Chemistry/Hematology Results that were resulted 30 days before or 30 daysafter the date of the Encounter. Date/Time Source Result Type Result - Unit Interpretation Reference Range Specimen Type Comment Dec 11, 2024 12:05 PM [facility] GLYCOHEMOGLOBIN BLOOD Specimen Type: BLOOD Comment: Prediabetes: 5.7%-6.4% Diabetes: >= 6.5% [facility] guidelines for A1c interpretation: Glycemic control targets are based on Shared Decision Making between clinicians and patients. Criteria used to establish an A1c target recommendation can be found at https://www.vt. ov/qualityandpat ientsafety/ and include the use of [...] and 9.27. Ref: https://ngsp.org /CAPdata.asp. The in-house [employer] D-100 analyzer has a historical CV <= 2%. Contact the laboratory for further performance characteristics of this assay. Ordering Provider: IRASEMA GIRON Report Released Date/Time: Dec 11, 2024 11:48 AM Reporting Lab: [address] [address] Performing Lab: [address] [address] GLYCOHEMOGLOBIN 5.1 4.4-5.6 Dec 11, 2024 12:05 PM [facility] LIPID PROFILE PLASMA Specimen Type: [...] 11, 2024 11:48 AM Reporting Lab: [address] [address] Performing Lab: [address] [address] CHOLESTEROL 151 mg/dL 0-199 TRIGLYCERIDE 60 mg/dL 0-149 HDL CHOLESTEROL 72 mg/dL H 40-69 DIRECT LDL CHOL. 70 mg/dL 0-100 Dec 11, 2024 12:05 PM [facility] CBC/PLT BLOOD Specimen Type: BLOOD No comment entered. Ordering Provider: IRASEMA GIRON Report Released Date/Time: Dec 11, 2024 11:48 AM Reporting Lab: [address] [address] Performing Lab: [address] [address] WBC 8.4 10*3/uL 5.0-10.0 RBC 4.51 10*6/uL L 4.6-6.2 HGB 13.2 g/dL L 14.0-18.0 HCT 40.5 L 42.0-52.0 MCV 89.8 fL 80.0-94.0 MCH 29.3 pg 27.0-31.0 MCHC 32.6 g/dL 32.0-36.0 PLT 241 10*3/uL 150-450 MPV 10.3 fL 9.0-13.1 RDW 13.2 11.0-16.0 NRBC 0.0 0.0-0.0 Dec 11, 2024 12:05 PM [facility] PANEL 5 PLASMA Specimen Type: [...] 11, 2024 11:48 AM Reporting Lab: [address] [address] Performing Lab: [address] [address] CREATININE 0.60 mg/dL L 0.72-1.25 UREA NITROGEN [...] and tobacco- related health factors from the [place] facility where the Encounter took place. Current Smoking Status This section includes the most current smoking, or tobacco-related health factor, from the [place] facility where the Encounter took place. Date/Time Current Smoking Status Comment Zayda ity Apr 03, 2024 01:15 PM VA-TOBACCO NEVER USED [facility] Tobacco Use History This section includes a history of the smoking, or tobacco-related health factors, that were collected on or before the date of the Encounter. The data comes from the [place] facility where the Encounter took place. Date/Time Smoking Status/Tobacco Use Comment F acility Jan 21, 2016 04:53 PM NON-TOBACCO USE INPATIENT [facility] Jan 13, 2016 06:51 AM V9 QUIT TOBACCO >7 YEARS AGO [facility] Advance Directives: All historical and current Section Date Range: From patient's date of to the date document was created. This section includes ALL of a patient's completed or amended [place] Advance and Rescinded Directives. The entries below indicate that a directive exists for the patient, but an actual copy is not included with this document. The data comes from all [place] facilities. Date Advance Directives Provider Source Apr 16, 2010 ADVANCE DIRECTIVE ALEXEY SHEPHERD SAM Encounter Notes: All associated encounter notes This section contains the clinical notes associated to the Encounter. Date/Time Encounter Note(s) Provider Source Dec 18, 2024 02:01 PM CARDIOLOGY CONSULT : LOCAL TITLE: EKG-INTERPRETATION ONLY CONSULT STANDARD TITLE: CARDIOLOGY CONSULT DATE OF NOTE: DEC 18, 2024@14:01:29 ENTRY DATE: DEC 18, 2024@14:01:29 AUTHOR: CLINICAL,DEVICE PRO EXP COSIGNER: URGENCY: STATUS: COMPLETED DOCUMENT IN VISTA IMAGING SEE FULL REPORT IN VISTA IMAGING SIGNATURE NOT REQUIRED SEE SIGNATURE IN VISTA IMAGING ([employer] EKG) AUTO-INSTRUMENT DIAGNOSIS Procedure: [id number] 12 Lead ECG Release Status: Released Off-Line Verified Date Verified: Dec 18, 2024@14:01:21 Concrete Plant Laborer: LISA RAI 05310.2 Ventricular Rate: 81 BPM 88149.3 Atrial Rate: 81 BPM 50760.4 P-R Interval: 194 ms 20648.5 QRS Duration: 148 ms 08984.6 Q-T Interval: 430 ms 50156 QTC Calculation(Bazett)499 ms 24764.12 Calculated P [place]: 3 degrees 45959.13 Calculated R [place]: -21 degrees 84859.14 Calculated T [place]: 132 degrees 208.1 Coded Diagnosis: NORMAL SINUS RHYTHM LEFTWARD QRS AXIS 208.1 Coded Diagnosis: LEFT BUNDLE BRANCH BLOCK 208.1 Coded Diagnosis: ABNORMAL ECG Confirmed by LISA RAI MD ([id number]), video news editor ALESHIA MULLINS ([id number]) on 12/18/2024 2:01:16 PM Administrative Closure: 12/18/2024 by: DEVICE PROXY SERVICE CLINICAL CLINICAL,DEVICE PROXY SERVICE CLINICAL,DEVICE PROXY SERVICE [facility]
--- OUTSIDE RECORDS SUMMARY | 2024-12-18 05:15 | XMS_ITS ---
Author Name [facility] [facility] [place] Address [address] [place] [id number] Care Team Providers Care Tailer Off Name Role Phone IRASEMA GIRON Primary Care [...] PART A Jun 04, 2009 PART A [id number] [phone] [place] PATIENT MEDICARE (WNR) MEDICARE (M) PART A Jun 04, 2009 PART A [id number] [place] PATIENT MEDICARE (WNR) MEDICARE (M) PART A Jun 04, 2009 PART A [id number] [phone] [place] PATIENT MEDICARE (WNR) MEDICARE (M) PART A Jun 04, 2009 PART A [id number] [place] PATIENT MEDICARE (WNR) MEDICARE (M) PART A Jun 04, 2009 PART A [id number] [place] PATIENT Selected Encounter This section includes the information on record at [place] for the Encounter. Date/Time Encounter Type Encounter Description Reason Provider Source Dec 18, 2024 09:15 AM OFFICE O/P EST MOD 30 MIN CARDIOLOGY ICD-10-CM I25.10 [place] heart disease of [place] coronary artery w/o ETHAN Guerra Brian Encounter Template Text not used by [place] Assessments - Encounter Diagnoses This section includes the primary and secondary diagnoses documented for the Encounter. Date/Time Primary/Secondary Diagnosis Diagnosis Name Provider Source Dec 18, 2024 11:19 AM PRIMARY [place] heart disease of [place] coronary artery w/o ETHAN Guerra [place] [facility] Dec 18, 2024 11:19 AM SECONDARY Chronic systolic (congestive) heart failure [facility] [place] [facility] Dec 18, 2024 11:19 AM SECONDARY Paroxysmal atrial fibrillation [facility] [place] [facility] Plan of Treatment: Future Appointments (+ 6 months) and Future Tests (+/- 45 days) The Plan of Treatment section includes future care activities for the patient from all [place] treatmentfacilities. This section includes future appointments and future orders which are active, pending or scheduled. Active, Pending, and Scheduled Orders This section includes a listing of several types of active, pending, and scheduled orders, including clinic medications orders, diagnostic test orders, procedure orders and consult orders; where the start date of the order is 45 days before the date of the Encounter or 45 days after the date of theEncounter. The data comes from all [place] treatment facilities. Test Date/Time Test Type Test Details Facility Name Dec 11, 2024 03:47 PM Consult Order MED DERMAT OLOGY OUTPATIENT Cons Internal Specialist's Choice [facility] Dec 25, 2024 12:00 AM Laboratory - Chemi stry Order PANEL 1 [id number] SP ONCE [facility] Dec 25, 2024 12:00 AM Laboratory - Chemi stry Order BNP (KEITH) [id number] SP [facility] Lab Results: +/- 30 days of the encounter This section includes the Chemistry and Hematology Lab Results on record with [place] for the patient. Radiology Reports and Pathology Reports are provided separately, in subsequent sections. Lab Results This section contains the Chemistry/Hematology Results that were resulted 30 days before or 30 daysafter the date of the Encounter. Date/Time Source Result Type Result - Unit Interpretation Reference Range Specimen Type Comment Dec 11, 2024 12:05 PM [facility] GLYCOHEMOGLOBIN BLOOD Specimen Type: BLOOD Comment: Prediabetes: 5.7%-6.4% Diabetes: >= 6.5% [facility] guidelines for A1c interpretation: Glycemic control [...] and 9.27. Ref: https://ngsp.org /CAPdata.asp. The in-house [employer]-Veracyte D-100 analyzer has a historical CV <= 2%. Contact the laboratory for further performance characteristics of this assay. Ordering Provider: IRASEMA GIRON Report Released Date/Time: Dec 11, 2024 11:48 AM Reporting Lab: [address] [id number] Performing Lab: [address] [address] GLYCOHEMOGLOBIN 5.1 4.4-5.6 Dec 11, 2024 12:05 [...] Dec 11, 2024 11:48 AM Reporting Lab: [address] [id number] Performing Lab: [address] [address] CHOLESTEROL 151 mg/dL 0-199 TRIGLYCERIDE 60 mg/dL 0-149 HDL CHOLESTEROL 72 mg/dL H 40-69 DIRECT LDL CHOL. 70 mg/dL 0-100 Dec 11, 2024 12:05 PM [facility] CBC/PLT BLOOD Specimen Type: BLOOD No comment entered. Ordering Provider: IRASEMA GIRON Report Released Date/Time: Dec 11, 2024 11:48 AM Reporting Lab: [address] [address] Performing Lab: [address] [address] WBC 8.4 10*3/uL 5.0-10.0 RBC 4.51 10*6/uL [...] Dec 11, 2024 11:48 AM Reporting Lab: [facility] [address] [facility] [address] Performing Lab: [address] [address] CREATININE 0.60 mg/dL L 0.72-1.25 UREA NITROGEN [...] 03, 2024 01:15 PM VA-TOBACCO NEVER USED [facility] Tobacco Use History This section includes a history of the smoking, or tobacco-related health factors, that were collected on or before the date of the Encounter. The data comes from the [place] facility where the Encounter took place. Date/Time Smoking Status/Tobacco Use Comment Ramesh mckeon Jan 21, 2016 04:53 PM NON-TOBACCO USE INPATIENT [facility] Jan 13, 2016 06:51 AM V9 QUIT TOBACCO >7 YEARS AGO [facility] Advance Directives: All historical and [...] Encounter. Date/Time Encounter Note(s) Provider Source Dec 19, 2024 01:27 PM ADDENDUM: LOCAL TITLE: Addendum STANDARD TITLE: ADDENDUM DATE OF NOTE: DEC 19, 2024@13:27:34 ENTRY DATE: DEC 19, 2024@13:27:35 AUTHOR: MARQUITA BARRY EXP COSIGNER: URGENCY: STATUS: COMPLETED See note CCC Cinical Triage of 12/19/2024, pt. is in the ED at [facility], chest pain with inhalation, he is waiting for the workup to be finished, CT with contrast waiting to be read, instructed pt. to notify us when he is released so that I can obtain his visit records. /es/ Marquita Barry RN IR RN Signed: 12/19/2024 13:30 Receipt Acknowledged By: 12/19/2024 15:57 /es/ Ethan Segundo MD Cardiology Attending --- Original Document --- 12/18/24 CARDIOLOGY CLINIC ATTENDING NOTE: (X)Nursing Intake Note Reviewed Pain: 5 (12/18/2024 10:00) 74 year old male with CAD s/p PCI, afib presents for follow up after his hospitalization. Patient presented with CP to [facility]. He states that he underwent cath and was unable to have PCI done due to the blockages. He then had another hospitalization for shortness of breath for which he was given steroids and home O2. Patient has had some chest discomfort since then, about 3 times which he took NTG. He's not sure if the NTG did anything, but the discomfort resolved. He has had some LE edema, but that he has had and wears compression stocking. Denies syncope, palpitations. He sleeps slightly higher up recently due to the Life Vest that he was given. He is unclear what medications he takes, but recalls that the statin caused severe hyponatremia. Past Medical History: 1. Coronary artery disease - 09/2004: VFib arrest: RCA PCI ([place]) - 2007: RCA PCI in [place] (after a stress test) - 02/2021: RCA STEMI: s/p 3 PCI ([facility]) - 02/2021: EF 45% - 04/2022: EF: [...] Medications: 1. Apixaban 5mg po bid 2. NTG 0.4mg sl prn 3. Olodaterol/Tiotropium 2 inh po daily 4. Mometasone 200mcg inh 2 puffs po bid 5. Albuterol neb qid 6. Albuterol inh 2 puffs q4hprn Allergies/Adverse Reactions: LISINOPRIL Family History: no early CAD Social history: quit smoking in 2007 Physical Exam: BP: 134/65 (12/18/2024 10:00) repeat: 128/74 HR: 86 (12/18/2024 10:00), HR: 80 SaO2: 95-98% on RA Wt: 134 lb [60.78 kg] (12/18/2024 10:00) Ht: 69.0 in [175.3 cm] (04/03/2024 13:33) BMI: BODY MASS INDEX - 19.8 Gen: AAO, NAD, dyspneic when talking Head: NCAT Eyes: EOMI Chest: decreased air movement bilaterally, occasional expiratory wheezing Cardiac: normal rate, reg rhythm, no m/r/g Abd: soft, NT, NABS Ext: 1+ BLE edema, no cyanosis/clubbing Neuro: moves all four Psych: normal affect, normal speech ECG: NSR, LBBB A/P: 1. Atherosclerotic Heart Disease of [place] Coronary Artery without Angina Pectoris - patient's symptoms appear stable. Unclear what happened in the hospitalization which he required catheterization. Will need obtain records from that hospitalization as well his heart cath report. Please obtain. He is on apixaban for his afib, and no need to be on aspirin. 2. Chronic Systolic (Congestive) Heart Failure - euvolemic. LVEF is <35%. His dyspnea is predominantly from his lung disease. At this time, with his low EF, will start him on GDMT. Will need to obtain records from [facility] regarding what medications he has been on (does not seem like he has been taking metoprolol, even though last discharge summary did mention it). At this time, will start him on empagliflozin and sacubitril/valsartan . He states that he does not get UTIs, and BP has been higher than 120s. Will obtain Panel 1 and BNP in a week. Will have PharmD assist in titration. 3. Paroxysmal atrial fibrillation - stable. Continue apixaban for stroke prophylaxis. Follow up in 3 months. I spent 35 minutes, reviewing history, performing an exam and evaluation, entering clinical information in EHR, interpreting results, counseling patient, reviewing imaging studies/labs, ordering meds/test/procedures, referring/communicating with consulting health pulmonary care nurse, and care coordination. Does not include time by clerical staff. /mona/ Ethan Segundo MD Cardiology Attending Signed: 12/18/2024 11:22 Receipt Acknowledged By: 12/18/2024 16:04 /mona/ Angela Lewis PharmD, [facility] Clinical Burr Sander - Cardiology 12/18/2024 13:47 /mona/ Marquita Barry RN IR RN 12/18/2024 ADDENDUM STATUS: COMPLETED [place] exited clinic per MD. All medications and treatment plan was discussed with prior to exiting clinic by MD. [place] to RTC 3 months [place] [facility] A-7 via F2F. Per provider order/instruction above. If this provider is not available or requires overbook please alert Credit Card Interviewer. Appointment letter to be mailed. - Records from recent hospitalization as well his heart cath reporthas been requested. - Will start him on GDMT. - Will start him on empagliflozin and sacubitril/valsartan . - Will obtain Panel 1 and BNP in a week. Will have PharmD assist in titration. /mona/ Marquita Barry RN IR RN Signed: 12/18/2024 13:52 MARQUITA BARRY-ALISSOND [facility] Dec 18, 2024 11:12 AM CARDIOLOGY ATTENDI OUTPATIENT NOTE: LOCAL TITLE: CARDIOLOGY CLINIC ATTENDING NOTE STANDARD TITLE: CARDIOLOGY ATTENDING OUTPATIENT NOTE DATE OF NOTE: DEC 18, 2024@11:12 ENTRY DATE: DEC 18, 2024@11:12:32 AUTHOR: ETHAN SEGUNDO EXP COSIGNER: URGENCY: STATUS: COMPLETED CARDIOLOGY CLINIC ATTENDING NOTE Has ADDENDA (X)Nursing Intake Note Reviewed Pain: 5 (12/18/2024 10:00) 74 year old male with CAD s/p PCI, afib presents for follow up after his hospitalization. Patient presented with CP to [facility]. He states that he underwent cath and was unable to have PCI done due to the blockages. He then had another hospitalization for shortness of breath for which he was given steroids and home O2. Patient has had some chest discomfort since then, about 3 times which he took NTG. He's not sure if the NTG did anything, but the discomfort resolved. He has had some LE edema, but that he has had and wears compression stocking. Denies syncope, palpitations. He sleeps slightly higher up recently due to the Life Vest that he was given. He is unclear what medications he takes, but recalls that the statin caused severe hyponatremia. Past Medical History: 1. Coronary artery disease - 09/2004: VFib arrest: RCA PCI ([place]) - 2007: RCA PCI in [place] (after a stress test) - 02/2021: RCA STEMI: s/p 3 PCI ([facility]) - 02/2021: EF 45% - 04/2022: EF: 30-45% - 06/2022: EF: 45-50% - 10/2022: EF: 50-55% - 06/2023: Nuclear stress test: Inf infarct, no ischemia. EF 52% 2. Paroxysmal atrial fibrillation - 04/2022 s/p DCCV - [facility] (Age, HTN, CAD): 3 3. Hypertension 4. Mixed dyslipidemia 5. COPD (09/2022 PFT: severe obstructive disease, 3L O2 NC) 6. GERD 7. Peripheral artery disease - s/p PCI to [place] 8. Anxiety/Depression/PTSD 9. COVID 03/2022 Medications: 1. Apixaban 5mg po bid 2. NTG 0.4mg sl prn 3. Olodaterol/Tiotropium 2 inh po daily 4. Mometasone 200mcg inh 2 puffs po bid 5. Albuterol neb qid 6. Albuterol inh 2 puffs q4hprn Allergies/Adverse Reactions: LISINOPRIL Family History: no early CAD Social history: quit smoking in 2007 Physical Exam: BP: 134/65 (12/18/2024 10:00) repeat: 128/74 HR: 86 (12/18/2024 10:00), HR: 80 SaO2: 95-98% on RA Wt: 134 lb [60.78 kg] (12/18/2024 10:00) Ht: 69.0 in [175.3 cm] (04/03/2024 13:33) BMI: BODY MASS INDEX - 19.8 Gen: AAO, NAD, dyspneic when talking Head: NCAT Eyes: EOMI Chest: decreased air movement bilaterally, occasional expiratory wheezing Cardiac: normal rate, reg rhythm, no m/r/g Abd: soft, NT, NABS Ext: 1+ BLE edema, no cyanosis/clubbing Neuro: moves all four Psych: normal affect, normal speech ECG: NSR, LBBB A/P: 1. Atherosclerotic Heart Disease of [place] Coronary Artery without Angina Pectoris - patient's symptoms appear stable. Unclear what happened in the hospitalization which he required catheterization. Will need obtain records from that hospitalization as well his heart cath report. Please obtain. He is on apixaban for his afib, and no need to be on aspirin. 2. Chronic Systolic (Congestive) Heart Failure - euvolemic. LVEF is <35%. His dyspnea is predominantly from his lung disease. At this time, with his low EF, will start him on GDMT. Will need to obtain records from [facility] regarding what medications he has been on (does not seem like he has been taking metoprolol, even though last discharge summary did mention it). At this time, will start him on empagliflozin and sacubitril/valsartan . He states that he does not get UTIs, and BP has been higher than 120s. Will obtain Panel 1 and BNP in a week. Will have PharmD assist in titration. 3. Paroxysmal atrial fibrillation - stable. Continue apixaban for stroke prophylaxis. Follow up in 3 months. I spent 35 minutes, reviewing history, performing an exam and evaluation, entering clinical information in EHR, interpreting results, counseling patient, reviewing imaging studies/labs, ordering meds/test/procedures, referring/communicating with consulting health pulmonary care nurse, and care coordination. Does not include time by clerical staff. /mona/ Ethan Segundo MD Cardiology Attending Signed: 12/18/2024 11:22 Receipt Acknowledged By: 12/18/2024 16:04 /mona/ Angela Lewis PharmD, [facility] Clinical [facility] Sander - Cardiology 12/18/2024 13:47 /mona/ Marquita Barry RN IR RN 12/18/2024 ADDENDUM STATUS: COMPLETED [place] exited clinic per MD. All medications and treatment plan was discussed with prior to exiting clinic by MD. to RTC 3 months [place] [facility] A-7 via F2F. Per provider order/instruction above. If this provider is not available or requires overbook please alert Credit Card Interviewer. Appointment letter to be mailed. - Records from recent hospitalization as well his heart cath reporthas been requested. - Will start him on GDMT. - Will start him on empagliflozin and sacubitril/valsartan . - Will obtain Panel 1 and BNP in a week. Will have PharmD assist in titration. /mona/ Marquita Barry RN IR RN Signed: 12/18/2024 13:52 12/19/2024 ADDENDUM STATUS: COMPLETED See note CCC Cinical Triage of 12/19/2024, pt. is in the ED at [facility], chest pain with inhalation, he is waiting for the workup to be finished, CT with contrast waiting to be read, instructed pt. to notify us when he is released so that I can obtain his visit records. /es/ Marquita Barry RN IR RN Signed: 12/19/2024 13:30 Receipt Acknowledged By: * AWAITING SIGNATURE * ETHAN SEGUNDO STEVE W [place]-CDD [facility] Dec 18, 2024 10:22 AM NURSING OUTPATIENT NOTE: LOCAL TITLE: [facility] MEDICINE CLINIC INTAKE NOTE STANDARD TITLE: NURSING OUTPATIENT NOTE DATE OF NOTE: DEC 18, 2024@10:22 ENTRY DATE: DEC 18, 2024@10:22:17 AUTHOR: ISIDORO FRANZ COSIGNER: URGENCY: STATUS: COMPLETED Reason for visit/chief complaint: B/P: 134/65 (12/18/2024 10:00) P: 86 (12/18/2024 10:00) R: 18 (12/18/2024 10:00) T: 98 F [36.7 C] (12/18/2024 10:00) HT: 69.0 in [175.3 cm] (04/03/2024 13:33) WT: 134 lb [60.78 kg] (12/18/2024 10:00) Are you having any pain or recurrent pain in the last several weeks/months? Yes Severity Scale (5) Location: general from working to breath Duration: Characteristics: Chronic (over 3 months) Pain education material offered to patient (for pain > 3) Yes Risk factors history: Hypertension Yes Have you taken your blood pressure medication today? No Do you have a BP cuff at home? Yes Does the home BP cuff work and is used at home? Yes What does your blood pressure run at home? Not taken lately. BP Rechecked: No Manual blood pressure taken: No Primary Care atg architect notified of elevated BP greater of 140/90: No Patient notified rubber trimmer available upon request for any examinations/procedures. The patient was given a list of his/her medications, instructed to review and discuss any changes or problems with their provider. Patient advised to carry a list of current medications and any allergies with them in the event of emergency situations. Allergies: local and remote LISINOPRIL FACILITY ALLERGY/ADR -------- 516^[facility]^516 VACCINES Medication Reconciliation ACTIVE OUTPATIENT MEDICATIONS [...] DAY TO THIN BLOOD. CALL ANTICOAGULATION CLINIC [phone] WITH QUESTIONS OR CONCERNS Quantity: 180 for 90 days Issued: 07/31/24 Filled: 12/11/24 Expires: 08/01/25 Refills: 2 Status: ACTIVE ARTIFICIAL TEARS POLYVINYL ALCOHOL Directions: PUT 1 DROP IN EYE(S) DIRECTED FOR DRY EYES Quantity: 15 for 30 days Issued: 11/15/24 Filled: 12/11/24 Expires: 11/16/25 Refills: 0 Status: ACTIVE MOMETASONE 200MCG/ACTUAT 120D ORAL INHL Directions: INHALE 2 PUFFS BY MOUTH TWICE A DAY FOR BREATHING -RINSE MOUTH AND SPIT AFTER EACH USE Quantity: 3 for 90 days Issued: 11/20/24 Filled: 11/20/24 Expires: 11/21/25 Refills: 3 Status: ACTIVE NITROGLYCERIN 0.4MG SL TAB BTL 25 Directions: DISSOLVE ONE TABLET UNDER THE TONGUE EVERY 5 MINUTES UP TO 3 DOSES FOR CHEST PAIN -IF NO RELIEF CALL 911 Quantity: 1 for 30 days Issued: 07/31/24 Filled: 12/11/24 Expires: 08/01/25 Refills: 1 Status: ACTIVE OLODATEROL/TIOTROP 2.5MCG/ACTUAT 60D INH Directions: INHALE 2 PUFFS BY MOUTH DAILY FOR BREATHING Quantity: 3 for 90 days Issued: 11/20/24 Filled: 11/20/24 Expires: 11/21/25 Refills: 3 Status: ACTIVE No remote medications found. PENDING [...] case of an emergency situation. Yes /mona/ ALISON PAINTERN, RN, CWRN, OMS WOCN Signed: 12/18/2024 10:25 ISIDORO FRANZ-[place] [facility]
--- OUTSIDE RECORDS SUMMARY | 2024-12-18 07:15 | XMS_ITS | Encounter Summary ---
Author Name [facility] [place] [facility] [place] [facility] [place] Address [address] [place] [id number] Care Team Providers Care Set Up / Operator Name Role Phone IRASEMA GIRON Primary [...] PART A Jun 04, 2009 PART A [id number] [place] PATIENT MEDICARE (WNR) MEDICARE (M) PART A Jun 04, 2009 PART A [id number] [place] PATIENT MEDICARE (WNR) MEDICARE (M) PART A Jun 04, 2009 PART A [id number] [place] PATIENT MEDICARE (WNR) MEDICARE (M) PART A Jun 04, 2009 PART A [id number] [place] PATIENT MEDICARE (WNR) MEDICARE (M) PART A Jun 04, 2009 PART A [id number] [phone] [place] PATIENT Selected Encounter This section includes the information on record at [place] for the Encounter. Date/Time Encounter Type Encounter Description Reason Pro vider Source Dec 18, 2024 11:15 AM Outpatient Encounter CARDIAC ECHO IHE Encounter Template Text not used by [place] Plan of Treatment: Future Appointments (+ 6 months) and Future Tests (+/- 45 days) The Plan of Treatment section includes future care activities for the patient from all [place] treatmentfacilities. This section includes future appointments and [...] of theEncounter. The data comes from all [place] treatment facilities. Test Date/Time Test Type Test Details Facility Name Dec 11, 2024 03:47 PM Consult Order MED DERMAT OLOGY OUTPATIENT Cons [facility] Dec 25, 2024 12:00 AM Laboratory - Chemi stry Order BNP (KEITH) [id number] SP [facility] Dec 25, 2024 12:00 AM Laboratory - Chemi stry Order PANEL 1 [id number] SP ONCE [facility] Lab Results: +/- 30 days [...] BLOOD Comment: Prediabetes: 5.7%-6.4% Diabetes: >= 6.5% [place] guidelines for A1c interpretation: Glycemic control targets are based on Shared Decision Making between clinicians and patients. Criteria used to establish an A1c target recommendation can be found at https://www.ms.g ov/qualityandpat ientsafety/ and include the use of [...] and 9.27. Ref: https://ngsp.org /CAPdata.asp. The in-house [employer] D-100 analyzer has a historical CV <= 2%. Contact the laboratory for further performance characteristics of this assay. Ordering Provider: IRASEMA GIRON Report Released Date/Time: Dec 11, 2024 11:48 AM Reporting Lab: [address] [address] Performing Lab: [address] [address] GLYCOHEMOGLOBIN 5.1 4.4-5.6 Dec 11, 2024 12:05 PM [facility] LIPID PROFILE PLASMA Specimen Type: [...] Dec 11, 2024 11:48 AM Reporting Lab: [address] [address] Performing Lab: [address] [address] CHOLESTEROL 151 mg/dL 0-199 TRIGLYCERIDE 60 mg/dL 0-149 HDL CHOLESTEROL 72 mg/dL H 40-69 DIRECT LDL CHOL. 70 mg/dL 0-100 Dec 11, 2024 12:05 PM [facility] CBC/PLT BLOOD Specimen Type: BLOOD No comment entered. Ordering Provider: IRASEMA GIRON Report Released Date/Time: Dec 11, 2024 11:48 AM Reporting Lab: [address] [address] Performing Lab: [address] [address] WBC 8.4 10*3/uL 5.0-10.0 RBC 4.51 10*6/uL L 4.6-6.2 HGB 13.2 g/dL L 14.0-18.0 HCT 40.5 L 42.0-52.0 MCV 89.8 fL 80.0-94.0 MCH 29.3 pg 27.0-31.0 MCHC 32.6 g/dL 32.0-36.0 PLT 241 10*3/uL 150-450 MPV 10.3 fL 9.0-13.1 RDW 13.2 11.0-16.0 NRBC 0.0 0.0-0.0 Dec 11, 2024 12:05 PM [facility] PANEL 5 PLASMA Specimen Type: PLASM [...] Dec 11, 2024 11:48 AM Reporting Lab: [address] [address] Performing Lab: [address] [address] CREATININE 0.60 mg/dL L 0.72-1.25 UREA NITROGEN [...] Encounter Note(s) Provider Source Dec 18, 2024 11:39 AM PROCEDURE REPORT: LOCAL TITLE: CP CARD/ECHO STANDARD TITLE: PROCEDURE REPORT DATE OF NOTE: DEC 18, 2024@11:39:18 ENTRY DATE: DEC 18, 2024@11:39:18 AUTHOR: CLINICAL,DEVICE PRO EXP COSIGNER: URGENCY: STATUS: COMPLETED PROCEDURE SUMMARY CODE: Machine Resulted DATE/TIME PERFORMED: DEC 18, 2024@11:38:5 DOCUMENT IN VISTA IMAGING SEE FULL REPORT IN VISTA IMAGING SIGNATURE NOT REQUIRED SEE SIGNATURE IN VISTA IMAGING (ZXCELERA TTE) AUTO-INSTRUMENT DIAGNOSIS Procedure: Adult Adult Release Status: Released Off-Line Verified Date Verified: Dec 18, 2024@11:38:57 CP Order Number: [id number] [place] [address] [id number] [phone] Adult Echocardiogram Report Name: MARIZA JAY SR Study Date: 12/18/2024 10:34 AM : 1950 Gender: Male Age: 74 yrs Ordering Physician: ETHAN SEGUNDO History: cardiomyopathy Reason For Study: cardiomyopathy Height: 71 in Weight: 140 lb BSA: 1.8 m2 HR: 86 BP: 128/74 mmHg Interpretation Summary A complete two-dimensional transthoracic echocardiogram was performed (2D, M- mode, Doppler and color flow Doppler). The rate and rhythm during this exam was most suggestive of normal sinus at 80-90bpm. The study was technically difficult. Compared to previous echo, significant changes are noted. 1. Left ventricular systolic function is severely reduced. The visually estimated LVEF is '25-30%'. The E/e' ratio is most consistent with 'a normal' left atrial pressure. There is grade 1 diastolic dysfunction (mild). Please see [facility] for detailed regional wall motion assessment. 2. The right ventricular systolic function is mildly reduced. 3. No significant aortic, mitral or tricuspid stenosis or regurgitation 4. There is no pericardial effusion. Left Ventricle The left ventricular end-diastolic dimension is borderline dilated for men (5.5-5.8cm). There is normal left ventricular wall thickness. Left ventricular systolic function is severely reduced. The visually estimated LVEF is '25- 30%'. The E/e' ratio is most consistent with 'a normal' left atrial pressure. There is grade 1 diastolic dysfunction (mild). Please see [facility]seye for detailed regional wall motion assessment. Septal motion is consistent with conduction abnormality. I WMSI = 2.31 % Normal = 0 There is diffuse hypokinesis to akinesis. Segments Size X - Cannot 1 - Normal 2 - 3 - Akinetic 4 - 1-2 small Interpret Hypokinetic Dyskinetic 3-5 moderate 5 - 6-14 large Aneurysmal 15-16 diffuse Right Ventricle The right ventricle is mildly dilated. The right ventricular systolic function is mildly reduced. The estimated RV systolic pressure is uninterpretable due to inadequate TR. Atria The left atrial size is normal. Based upon the IVC size and respiratory variation, the estimated RAP is '3mmHg (<=21mm; >50% collapse)'. The right atrial size is normal. Mitral Valve There is moderate mitral annular calcification. There is no mitral stenosis. There is mild mitral regurgitation. Tricuspid Valve The tricuspid valve is not well visualized, but is grossly normal. There is no tricuspid stenosis. There is trace tricuspid regurgitation. Aortic Valve There is calcification on the aortic valve leaflet(s). There is aortic sclerosis. No aortic regurgitation. Pulmonic Valve The pulmonic valve is not well visualized. Great Vessels The aortic root is not well visualized. Pericardium/Pleural There is no pericardial effusion. MMode/2D Measurements \T\ Calculations IVSd: 0.96 cm LVIDd: 5.5 cm LV mass(C)d: 189.5 grams LVIDs: 3.7 cm LVPWd: 0.89 cm EDV(MOD-sp4): 117.5 ml EDV(MOD-sp2): 114.0 ml ESV(MOD-sp4): 79.4 ml ESV(MOD-sp2): 79.2 ml EDV(MOD-bp): 111.5 ml EF(MOD-sp4): 32.5 % EF(MOD-sp2): 30.6 % ESV(MOD-bp): 78.7 ml EF(sp4-el): 29.1 % EF(sp2-el): 30.9 % EF(MOD-bp): 29.4 % SV(MOD-sp4): 38.2 ml SV(sp4-el): 32.5 ml TAPSE_phl: 1.3 cm Doppler Measurements \T\ Calculations MV E max kishan: 84.4 cm/sec Ao V2 max: 205.3 cm/sec RV S Vel_phl: 9.1 cm/sec MV A max kishan: 136.1 cm/sec Ao max P.9 mmHg MV E/A: 0.62 Ao V2 mean: 130.8 cm/sec Ao mean P.0 mmHg Ao V2 VTI: 44.7 cm Lat Peak E' Kishan: 8.4 cm/secMed Peak E' Kishan: 7.1 cm/secMV E/e' (Avg): 11.0 MV Lat E/e': 10.1 MV Med E/e': 11.9 Reading Physician: Ethan Segundo MD 12/18/2024 11:38 AM Ordering Physician: ETHAN SEGUNDO Administrative Closure: 12/18/2024 by: DEVICE PROXY SERVICE CLINICAL CLINICAL,DEVICE PROXY SERVICE CLINICAL,DEVICE PROXY SERVICE [facility]
[2024-12-19] VITALS (28 sets, daily range): BP systolic 66–133; BP diastolic 46–72; PULSE 42–95; RESP 12–24; TEMP 36.5–36.8; O2SAT 88–100; BMI 18.8; BMI 18.6
--- OUTSIDE RECORDS SUMMARY | 2024-12-19 06:57 | XMS_ITS | Encounter Summary ---
Author Name [facility] [place] [facility] [place] Address [address] [place] [address] Care Team Providers Care Painting Technician Name Role Phone IRASEMA GIRON Primary Care [...] PART A Jun 04, 2009 PART A [id number] [place] PATIENT MEDICARE (WNR) MEDICARE (M) PART A Jun 04, 2009 PART A [id number] GAYLE RY PATIENT MEDICARE (WNR) MEDICARE (M) PART A Jun 04, 2009 PART A [id number] M[place] PATIENT MEDICARE (WNR) MEDICARE (M) PART A Jun 04, 2009 PART A [id number] [phone] [id number] [place] PATIENT MEDICARE (WNR) MEDICARE (M) PART A Jun 04, 2009 PART A [id number] [phone] [id number] [place] PATIENT Selected Encounter This section includes the information on record at [place] for the Encounter. Date/Time Encounter Type Encounter Description Reason Pro vider Source Dec 19, 2024 10:57 AM Outpatient Encounter TELEPHONE TRIAGE IHE Encounter Template Text not used by [place] Plan of Treatment: Future Appointments (+ 6 months) and Future Tests (+/- 45 days) The Plan of Treatment section includes future care activities for the patient from all [place] treatmentfacilities. This section includes future appointments and [...] of theEncounter. The data comes from all [place] treatment facilities. Test Date/Time Test Type Test Details Facility Name Dec 11, 2024 03:47 PM Consult Order MED DERMAT OLOGY OUTPATIENT Cons [facility] Dec 25, 2024 12:00 AM Laboratory - Chemi stry Order PANEL 1 [id number] SP ONCE [facility] Dec 25, 2024 12:00 AM Laboratory - Chemi stry Order BNP (KEITH) [id number] SP [facility] Lab Results: +/- 30 days of the encounter This section includes the Chemistry and Hematology Lab Results on record with [place] for the patient. Radiology Reports and Pathology [...] BLOOD Comment: Prediabetes: 5.7%-6.4% Diabetes: >= 6.5% [place] guidelines for A1c interpretation: Glycemic control targets are based on Shared Decision Making between clinicians and patients. Criteria used to establish an A1c target recommendation can be found at https://www.vt.g ov/qualityandpat ientsafety/ and include the use of [...] and 9.27. Ref: https://ngsp.org /CAPdata.asp. The in-house [employer] D-100 analyzer has a historical CV <= 2%. Contact the laboratory for further performance characteristics of this assay. Ordering Provider: IRASEMA GIRON Report Released Date/Time: Dec 11, 2024 11:48 AM Reporting Lab: [address] [address] Performing Lab: [address] [address] GLYCOHEMOGLOBIN 5.1 4.4-5.6 Dec 11, 2024 12:05 [...] Dec 11, 2024 11:48 AM Reporting Lab: [address] [address] Performing Lab: [address] [address] CHOLESTEROL 151 mg/dL 0-199 TRIGLYCERIDE 60 mg/dL 0-149 HDL CHOLESTEROL 72 mg/dL H 40-69 DIRECT LDL CHOL. 70 mg/dL 0-100 Dec 11, 2024 12:05 PM [facility] CBC/PLT BLOOD Specimen Type: BLOOD No comment entered. Ordering Provider: IRASEMA GIRON Report Released Date/Time: Dec 11, 2024 11:48 AM Reporting Lab: [address] [address] Performing Lab: [address] [address] WBC 8.4 10*3/uL 5.0-10.0 RBC 4.51 10*6/uL L 4.6-6.2 HGB 13.2 g/dL L 14.0-18.0 HCT 40.5 L 42.0-52.0 MCV 89.8 fL 80.0-94.0 MCH 29.3 pg 27.0-31.0 MCHC 32.6 g/dL 32.0-36.0 PLT 241 10*3/uL 150-450 MPV 10.3 fL 9.0-13.1 RDW 13.2 11.0-16.0 NRBC 0.0 0.0-0.0 Dec 11, 2024 12:05 PM [facility] PANEL 5 PLASMA Specimen Type: [...] Dec 11, 2024 11:48 AM Reporting Lab: [address] [address] Performing Lab: [address] [address] CREATININE 0.60 mg/dL L 0.72-1.25 UREA NITROGEN [...] and tobacco- related health factors from the [place] facility where the Encounter took place. Current Smoking Status This section includes the most current smoking, or tobacco-related health factor, from the [place] facility where the Encounter took place. Date/Time Current Smoking Status Comment Zayda kwok Mar 18, 2023 10:00 AM VA-TOBACCO FORMER USER [facility] Tobacco Use History This section includes a history of the smoking, or tobacco-related health factors, that were collected on or before the date of the Encounter. The data comes from the [place] facility where the Encounter took place. Date/Time Smoking Status/Tobacco Use Comment Ramesh mckeon Mar 18, 2023 10:00 AM VA-TOBACCO QUIT 5 TO < 15 YRS [facility] Apr 30, 2022 11:00 AM VA-TOBACCO FORMER USER [facility] Apr 30, 2022 11:00 AM VA-TOBACCO QUIT 15 YRS OR MORE [facility] Apr 24, 2021 09:30 AM VA-TOBACCO FORMER USER [facility] Apr 24, 2021 09:30 AM VA-TOBACCO QUIT 5 TO < 15 YRS [facility] Feb 14, 2021 10:00 AM VA-TOBACCO FORMER USER [facility] Feb 14, 2021 10:00 AM VA-TOBACCO QUIT 15 YRS OR MORE [facility] Apr 20, 2018 11:36 AM VA-TOBACCO FORMER USER [facility] Apr 20, 2018 11:36 AM VA-TOBACCO QUIT 15 YRS OR MORE [facility] Feb 09, 2017 10:00 AM V9 QUIT TOBACCO >7 YEARS AGO [facility] Feb 11, 2015 10:54 AM V9 QUIT TOBACCO >7 YEARS AGO [facility] Mar 16, 2014 08:35 AM V9 QUIT TOBACCO >1 2 MO & <7 YRS AGO [facility] Mar 16, 2014 08:35 AM V9 TOBACCO OFFERED [facility] Advance Directives: All historical and current Section Date Range: From patient's date of to the date document was created. This section includes ALL of a patient's completed or amended [place] Advance and Rescinded Directives. The entries below indicate that a directive exists for the patient, but an actual copy is not included with this document. The data comes from all [place] facilities. Date Advance Directives Provider Source Apr 16, 2010 ADVANCE DIRECTIVE ALEXEY SHEPHERD Encounter Notes: All associated encounter notes This section contains the clinical notes associated to the Encounter. Date/Time Encounter Note(s) Provider Source Dec 19, 2024 10:57 AM RN PROGRESS NOTE: LOCAL TITLE: CCC: CLINICAL TRIAGE STANDARD TITLE: RN PROGRESS NOTE DATE OF NOTE: DEC 19, 2024@10:57:35 ENTRY DATE: DEC 19, 2024@10:57:36 AUTHOR: ANNABELLA HINES COSIGNER: URGENCY: STATUS: COMPLETED CCC: CLINICAL TRIAGE Has ADDENDA Caller Verification Call Back Number: Caller/Recipient Relation to Patient: Self Caller Name: MARIZA JAY Emergency Contact: ROBERT JAY [facility] Screening Patient Stated Symptoms: C/O left side chest pain X today C/O BP 97/52 Triage Summary Conducted triage/discussed symptoms Pain Score: 8 (Severe Pain) Utilized the Triage Tool: Yes Chief Complaint: Chest Pain Nurse's Recommendation / WHEN: 911 Nurse's Recommendation / WHERE: 911 Patient Disposition Patient/Caregiver agrees to plan of care: Yes Patient WHERE: 911 Patient WHEN: 911 Nursing Plan and Disposition Referred patient to higher level of care Other Other Description: Granddaughter Lynda called 911 Other course(s) of action Generated msg to PACT/Provider Nurse Summary Nurse Summary: Hand off from [facility]- Vet with chest pain, Vet reports shortness of breath and chest pain, Vet instructed to call 911. Conway's and granddaughter Lynda in home- Lynda called 911, EMS at home at 1048. Lynda reports Vet short of breath with chest pain for past hour- took Nitro-1 tab under tongue hour ago. Instructed he to place another nitro under Conway's tongue. Instructed to place another nitro after 5 minutes if Vet continues to have chest pain. EMS in home at 1048. Recommendation was 911, now, EMS called. Note forward to PCP and CM for review. Will call Lynda back at [phone] with [employer] information. Clinical Contact Center Codes Clinic/Location: V9 [facility] PHONE CCC RN DAYTIME Decision Support System Output: Triage Complete Triage Date: 12/19/2024, 10:49 AM Triage Note: Decision Support Tool Used: ClearTriage Hand off from [facility]SA, Vet with left side chest pain for about 1 hour. Vet short of breath, and grand-daughter in home with Vet. Instructed to call 911. Grand- daughter-Shell has called 911. EMS in home at 10:48. Protocol Used: Chest Pain Protocol-Based Disposition: Call EMS 911 Now Positive Triage Question: * SEVERE difficulty breathing (e.g., struggling for each breath, speaks in single words) IMPORTANT: This note was created by [facility] Clinical Contact Center staff. Please do not alert the staff member by adding them as a signer for future communications. Alerts are not monitored by this user. /es/ ANNABELLA HINES Daytime electron microscopist Signed: 12/19/2024 10:57 Receipt Acknowledged By: 12/19/2024 11:11 /es/ CYRUS Neumann, RN Pc Watch Crystal Cutter 12/19/2024 12:11 /es/ IRASEMA GIRON NURSE PRACTITIONER 12/19/2024 13:30 /es/ Yogi Kilgore RN IR RN 12/19/2024 ADDENDUM STATUS: COMPLETED Addendum: [facility], call to [phone], spoke with granddaughter Lynda, [employer] information given and Lynda instructed to call [facility] (number given) to reports Vet transported to [facility] via EMS for evaluation of chest pain within 72 hrs. of ER discharge. Lynda jasmine understanding. /mona/ ANNABELLA HINES Daytime electron microscopist Signed: 12/19/2024 11:58 ANNABELLA HINES [facility] [place]
--- NOTE | 2024-12-19 11:18 | CT_ITS ---
FINAL REPORT TECHNIQUE: The patient was injected with IV contrast. Axial images were obtained through the chest in a PE protocol. 3-D reconstruction images were also performed. Individualized dose reduction techniques using automated exposure control or adjustment of the MA and/or KV according to patient's size were employed. CLINICAL HISTORY: L sided pleuritic chest pain COMPARISON: 08/30/2024 FINDINGS: Mediastinal vasculature is adequately opacified. No pulmonary artery filling defects are identified to suggest PE. There is no aortic dissection. There is no axillary adenopathy. There is no hilar or mediastinal adenopathy. The heart size is normal. There is no pericardial or pleural effusion. Limited images of the upper abdomen are unremarkable. There is extensive pleural and parenchymal scarring noted bilaterally in the lower lungs. The patchy bibasilar infiltrates noted on the prior exam, have improved, likely consistent with improved pneumonia. IMPRESSION: No pulmonary embolus or dissection. Improved patchy bibasilar infiltrates noted on the prior CTA of 08/30/2024 have improved, likely consistent with improved pneumonia. Reviewed, Interpreted and Dictated by Fidel Garcia MD Transcribed by Rachna Marley Authenticated and . [facility]
--- NOTE | 2024-12-19 11:20 | ECG_ITS ---
APPROVED REPORT Exam: Resting ECG HR:78 bpm ECG Measurements Heart Rate 78 AXES VA 191 P 66 QRSd 146 QRS -13 QT 444 T 211 QTc 477 Conclusion SINUS RHYTHM LEFT BUNDLE BRANCH BLOCK [120+ ms QRS DURATION, 80+ ms Q/S IN V1/V2, 85+ ms R IN I/aVL/V5/V6] Electronically signed by : YOEL WHITEHEAD, 12/19/2024 15:20:27
--- NOTE | 2024-12-19 11:21 | PC.NURSE ---
I notified Chinyere in respiratory that a green tube was sent up for a VBG.
--- NOTE | 2024-12-19 11:22 | ED_ITS ---
Discharge Plan Disposition Patient Disposition: Admitted Condition: Fair Prescriptions Prescriptions: No Action albuterol sulfate 90 mcg/actuation Hfa Aerosol Inhaler 2 puff INHALATION Q4HP PRN (Reason: Shortness of air) apixaban 5 mg Tablet 5 mg PO BID aspirin 81 MG tablet,delayed release (DR/EC) 81 mg PO DAILY atorvastatin 40 mg Tablet 40 mg PO HS 30 Days Qty: 30 0RF Trelegy Ellipta 100-62.5-25 mcg Blister With Device 1 inh inhalation DAILY 30 Days Qty: 60 0RF furosemide 40 mg Tablet 40 mg PO DAILY 30 Days Qty: 30 0RF Entresto 24-26 mg tablet 1 tab PO BID 15 Days Qty: 30 0RF sodium chloride 1,000 mg Tablet,Soluble 500 mg PO BID 30 Days Qty: 60 0RF Referrals Follow up/Referrals: Provider,Referral, MD [Primary Care Provider, Medical] - See instructions Clinical Impressions Clinical Impression: Pneumonia, Pleurisy, Acute exacerbation of chronic obstructive pulmonary disease, Acute on chronic respiratory failure with hypoxia and hypercapnia, Chronic hyponatremia Instructions Patient Instructions: DI for Chronic Obstructive Pulmonary Disease, DI for Pneumonia -- Adult, DI for Atypical Chest Pain Print Language Print Language: Upper Sorbian Discharge ED Provider: Jordana Will HPI General Chief Complaint: Chest Pain Stated Complaint: Chest Pain Time Seen by Provider: 12/19/24 11:18 History of Present Illness HPI narrative: This patient is a 74-year-old male with a history of CAD status post stenting, paroxysmal atrial fibrillation on Eliquis, CHF with an EF of 30% as of September, LifeVest in place, COPD on 3 L nasal cannula, hypertension, hyperlipidemia presenting to the emergency department for evaluation with concern for left- sided pleuritic chest pain that was present when he woke up this morning. Patient states that he has sharp pain in the left chest anytime to take a deep breath. He took nitro at home without any improvement. He denies experiencing his like this in the past. He states that he was fine last night when he went to bed. He reports compliance with his home medications, including his Eliquis. He arrives by EMS who noted that he had soft pressures initially with systolics in the 90s, so they did not give pain medication or other intervention. They also did not give aspirin as the patient does not have teeth. They note that he otherwise was stable en route with good oxygen saturations on his home oxygen. Related Data Home Medications ?Medication ?Instructions ?Recorded ?Confirmed aspirin 81 mg tablet,delayed 81 mg PO DAILY 12/19/21 0 09/18/24 release albuterol sulfate 90 mcg/actuation 2 puff inhalation Q 4HP PRN 10/22/22 09/18/24 aerosol inhaler Shortness of air apixaban 5 mg tablet 5 mg PO BID 10/22/22 5 Previous Rx's ?Medication ?Instructions ?Recorded atorvastatin 40 mg tablet 40 mg PO HS 30 days #30 tabs 09/05/24 fluticasone fur. 100 mcg-umeclid 1 inh inhalation ZECHARIAH Y 30 days #60 09/05/24 62.5 mcg-vilant 25 mcg ea inhalat.powder (Trelegy Ellipta) furosemide 40 mg tablet 40 mg PO DAILY 30 days #30 t abs 09/05/24 sacubitril 24 mg-valsartan 26 mg 1 tab PO BID 15 days #30 tabs 09/16/24 tablet (Entresto) sodium chloride 1,000 mg soluble 500 mg (1/2 x 1,000 m g) PO BID 30 09/16/24 tablet days #60 tabs Allergies Allergy/AdvReac Type Severity Reaction Status Date / Time No Known Allergies Allergy Verified 09/18/24 09:31 [facility] Disclaimer: The information contained in this section may have been updated after the patient was seen, as this information can be updated by other users. Medical History Supplemental oxygen dependent Acute hypotension Adult failure to thrive Elevated bilirubin Elevated troponin Acute on chronic respiratory failure with hypoxia and hypercapnia Leukocytosis Pleural effusion Traumatic hematoma of head Fall Pneumonia Acute respiratory failure with hypoxemia Acute exacerbation of chronic obstructive pulmonary disease Chest pain Acute exacerbation of chronic obstructive pulmonary disease Abnormal electrocardiogram [ECG] [EKG] Chest pain Shortness of breath Tension pneumothorax Right upper lobe pulmonary nodule Dyspnea Increasing shortness of breath Acute hyponatremia Low back pain Congestive heart failure Hyponatremia Atrial fibrillation Hyponatremia COPD (chronic obstructive pulmonary disease) with acute bronchitis Sepsis HFrEF (heart failure with reduced ejection fraction) Pneumonia Non-ST elevation SD (NSTEMI) Coronary artery disease Diastolic dysfunction HLD (hyperlipidemia) Hypertension Pulmonary emphysema Fibrosis of lung COPD exacerbation Dyspnea on exertion Bilateral carotid artery stenosis Swelling of right upper extremity Cardiomyopathy Surgical History H/O hernia repair Family History Colorectal cancer Social History Smoking Status: Former smoker alcohol intake: current alcohol intake frequency: holidays/special occasions only current occupational status: employed Travel in the last 8 weeks?: None household members: spouse 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 [employer] caffeine: No Have you lived/traveled outside [place] in past 30 days?: No Contact w/someone who lives/traveled outside US past 30 days?: No Exposure to someone with infectious disease in past 14 days?: No Do you have a fever (greater than 100.4 F or 38 C)?: No Have you tested positive for COVID-19?: No Exposed to someone with COVID-19 in past 14 days?: No Do you have a sore throat?: No Do you have a cough?: No Do you have any weakness?: No Do you have any diarrhea?: No Are you experiencing any unusual bleeding?: No Do you have any muscle aches/pain?: No Do you have any abdominal pain?: No Are you experiencing loss of taste or smell?: No Other Medical History Have you received the Flu Vaccine for this season: No Have you received the Pneumonia Vaccine: No ROS Obtained: Yes All systems reviewed & no additional complaints except as documented Physical Exam General General appearance: alert Comment: Uncomfortable appearing, splinting respirations Head Head exam: atraumatic and normocephalic Eye Eye exam: Present normal appearance, PERRL and EOMI ENT ENT exam: Present normal exam, normal oropharynx, mucous membranes moist and normal external ear exam Neck Neck exam: Present normal inspection, full ROM and trachea midline; Absent tenderness Chest Chest inspection: Present normal inspection and symmetric chest wall rise; Absent tenderness Respiratory Respiratory exam: Present other (Tachypnea with splinting respirations, clear breath sounds bilaterally); Absent wheezes, stridor or accessory muscle use Cardiovascular Cardiovascular exam: Present regular rate and normal rhythm Abdominal Exam Abdominal exam: Present soft; Absent distention, tenderness or guarding Extremities Exam Extremities exam: Present normal inspection, full ROM and normal capillary refill; Absent tenderness or edema Back Exam Back exam: Present normal inspection and full ROM; Absent tenderness Neurological Exam Neurological exam: Present alert, oriented X3, CN II-XII intact and normal gait; Absent motor sensory deficit Psychiatric Psychiatric exam: Present normal affect and normal mood Skin Skin exam: Present warm and dry HEART Score HEART Score HEART Score assessment performed?: Yes History (anamnesis): Slightly suspicious ECG: Non-specific disturbance Age: >65 years Risk factors: Atherosclerosis history Troponin: </= normal limit HEART Score: 5 Critical Care Critical Care Time Critical Care Time: Yes Attestation: On 12/19/24, the high probability of a clinically significant, sudden or life threatening deterioration of the following system(s) required my full and direct attention, intervention and personal management. The time I documented below is in addition to time spent performing reported procedures but includes the following listed in this critical care notation. Total Time Total Critical Care Time: 35 Medical Decision Making Maninder Inquiry Pt receiving controlled substance: No Vital Signs Vital Signs: 12/19/24 11:24 12/19/24 11:30 12/19/24 11:34 Temperature 97.7 F Temperature Source Oral Pulse Rate 80 77 Pulse Rate [Right] 77 Respiratory Rate 23 22 Blood Pressure 122/72 Blood Pressure [Right Arm] 113/67 Blood Pressure Mean 90 Blood Pressure Mean [Right Arm] 82 Blood Pressure Source [Right Arm] Automatic Cuff Blood Pressure Position [Right Arm] Supine 02 Sat by Pulse Oximetry 94 L 99 Oxygen Delivery Method Room Air 12/19/24 12:30 12/19/24 13:00 Temperature Temperature Source Pulse Rate 88 87 Pulse Rate [Right] Respiratory Rate 13 13 Blood Pressure 108/55 L 108/63 L Blood Pressure [Right Arm] Blood Pressure Mean 75 82 Blood Pressure Mean [Right Arm] Blood Pressure Source [Right Arm] Blood Pressure Position [Right Arm] 02 Sat by Pulse Oximetry 93 L 100 Oxygen Delivery Method Lab Data Labs: Lab Results 12/19/24 11:08: WBC 9.0, RBC 4.64, Hgb 13.6 L, Hct 41.0 L, MCV 88.4, MCH 29.3, MCHC 33.2, RDW 13.2, Plt Count 240, MPV 9.7, Neut % (Auto) 74.8, Lymph % (Auto) 16.8, Blanco % (Auto) 6.9, Eos % (Auto) 0.9, Baso % (Auto) 0.4, Neut # (Auto) 6.7, Lymph # (Auto) 1.5, Blanco # (Auto) 0.6, Eos # (Auto) 0.1, Baso # (Auto) 0.0, PT 11.2, INR 1.01, APTT 31.9 H, Sodium 123 L, Potassium 4.5, Chloride 88 L, Carbon Dioxide 31 H, Anion Gap 8.5, BUN 3 L, Creatinine 0.50 L, Estimated Creat Clear 54, Estimated GFR 163, Est GFR ( Amer) 197, Glucose 82, Calcium 9.3, Total Bilirubin 0.9, AST 32, ALT 14, Alkaline Phosphatase 57, Troponin I 0.01, Total Protein 7.3, Albumin 4.3, Globulin 3.0, Albumin/Globulin Ratio 1.4 12/19/24 11:31: VBG pH 7.29 L, VBG pCO2 61.6 H, VBG pO2 31.8, VBG HCO3 28.6, VBG Total CO2 30.5 H, VBG O2 Saturation 54.7, VBG Base Excess 2.0, VBG Lactic Acid 2.1 H 12/19/24 13:51: Troponin I < 0.01 12/19/24 14:45: VBG pH 7.21 L, VBG pCO2 72.1 H, VBG pO2 42.8 H, VBG HCO3 28.4, V BG Total CO2 30.7 H, VBG O2 Saturation 69.0, VBG Base Excess 0.6, VBG Lactic Acid 1.3 12/19/24 11:08 12/19/24 11:08 Response Orders (Tests/Meds): ED MEDICATIONS Generic Name Dose Route Start Last Admin Trade Name Freq PRN Reason Stop Dose Admin Nicotine 21 mg 12/19/24 15:07 Nicotine 21mg/24hr Patch TD 01/18/25 15:06 DAILYP PRN Nicotine Cravings Sodium Chloride 10 ml 12/19/24 11:52 12/19/24 11:55 Sodium Chloride 0.9% 10ml Syr (Rad Only) IV 01/18/25 11:51 10 ml NEEDED PRN Administration Maintain IV Site Discontinued Medications Generic Name Dose Route Start Last Admin Trade Name Freq PRN Reason Stop Dose Admin Albuterol/Ipratropium 9 ml 12/19/24 13:39 12/19/24 13:52 Ipratropium/Albuterol 3 Ml Neb IH 12/19/24 13:40 9 ml ONCE ONE Administration Amoxicillin/Clavulanate Potassium 1 each 12/19/24 14:48 12/19/24 15:05 Amoxicillin/Clavulanate Potassium 875/125mg Tablet PO 12/19/24 14:49 1 each ONCE ONE Administration Azithromycin 500 mg 12/19/24 14:48 12/19/24 15:05 Azithromycin 250mg Tablet PO 12/19/24 14:49 500 mg ONCE ONE Administration Iopamidol 75 ml 12/19/24 11:52 12/19/24 11:55 Iopamidol-370 (76%);100ml Bottle IV 12/19/24 11:53 75 ml ONCE ONE Administration Ketorolac Tromethamine 15 mg 12/19/24 13:39 12/19/24 13:52 Ketorolac 30mg/Ml Vial IV 12/19/24 13:40 15 mg ONCE ONE Administration Methylprednisolone Sodium Succinate 125 mg 12/19/24 13:39 12/19/24 13:52 Methylprednisolone Sod Succ 125mg Vial IV 12/19/24 13:40 125 mg ONCE ONE Administration Morphine Sulfate 4 mg 12/19/24 11:19 12/19/24 11:29 Morphine 4mg/Ml Syringe IV 12/19/24 11:20 4 mg ONCE ONE Administration Ondansetron HCl 4 mg 12/19/24 11:19 12/19/24 11:30 Ondansetron 4mg/2ml Vial IV 12/19/24 11:20 4 mg ONCE ONE Administration Sodium Chloride 50 ml 12/19/24 11:52 12/19/24 11:55 0.9 % Sodium Chloride 50 Ml Vial IV 12/19/24 11:53 50 ml ONCE ONE Administration ORDERS Category Date Time Status CTA Chest [CT angio chest PE protocol] Stat Cat Scan 12/19/24 11:18 Completed Pulmonology Consult [Consult to Pulmonology] [CONS] Cons 12/19/24 15:07 Active Routine Activated Partial Thrombo Time Stat Lab 12/19/24 11:08 Completed Complete Blood Count Auto Diff AMLAB Lab 12/20/24 06:00 Ordered Complete Blood Count Auto Diff Stat Lab 12/19/24 11:08 Completed Comprehensive Metabolic Panel AMLAB Lab 12/20/24 06:00 Ordered Comprehensive Metabolic Panel Stat Lab 12/19/24 11:08 Completed Full Resp Panel w/COVID ([facility]) Routine Lab 12/19/24 15:12 Ordered Magnesium AMLAB Lab 12/20/24 06:00 Ordered Prothrombin Time INR Stat Lab 12/19/24 11:08 Completed Trop I [Troponin I] Stat Lab 12/19/24 11:08 Completed Troponin I Q3H Lab 12/19/24 13:51 Completed Troponin I Q3H Lab 12/19/24 17:30 Ordered VBG [Venous Blood Gas] Stat RT 12/19/24 11:31 Completed VBG [Venous Blood Gas] Timed RT 12/19/24 14:45 Completed ECG Data Tracing #1: Attestation: I reviewed this ECG and interpreted as documented below: ECG Narrative: Sinus rhythm with a ventricular rate of 78 bpm. Left bundle branch block. No STEMI ECG initial impression date: 12/19/24 ECG initial impression time: 11:22 MDM Narrative Medical Decision Narrative: In summary, this patient is a 74-year-old male presenting to the Emergency Department for evaluation of sided pleuritic chest pain. Differential diagnoses considered include but are not limited to PE, pneumothorax, pneumonia, ACS, pleurisy, rib fracture, mass. Ruling out the most morbid conditions drove assessment. It should be noted patient's history includes extensive cardiovascular history as detailed in HPI which likely has not at goal therapy. This complicates all aspects of care by increasing patient's risk for morbidity. I reviewed patient's past medical records and noted prior cardiac evaluations for maintenance of health as detailed in HPI. On exam, the patient is uncomfortable appearing with splinted respirations and mild tachypnea. Vitals are reassuring on cardiac telemetry with normal O2 saturation on his home oxygen. Blood pressures fine. Workup included CBC, CMP, troponin, coags, CTA PE protocol, EKG. EKG demonstrates left bundle branch block with no acute STEMI. Patient was given IV morphine and Zofran for symptomatic improvement. I independently interpreted CT prior to the radiologist read and noted no PE, but it does look like he has consolidations concerning for pneumonia. No pneumothorax either. Please see their read for final interpretation. Labs were obtained that demonstrated reassuring CBC with no significant leukocytosis. He has mild anemia. Chemistry demonstrates chronic hyponatremia and hypochloremia without significant change. Kidney function is normal around his baseline. Initial troponin is negative. VBG initially showed mild hypercapnic respiratory failure with a respiratory acidosis. Patient was given DuoNebs x 3, IV steroids, and then IV Toradol for further pain control as he continued to have significant pain on reassessment. On reassessment, patient had great improvement after administration of interventions above and he is feeling better. I administered oral Augmentin and azithromycin for community-acquired pneumonia coverage with anticipation of discharging the patient home, however on repeat VBG he had worsening respiratory acidosis. I feel that he likely has not had time to catch up after pain control and breathing treatments, but given his high risk chest pain with extensive cardiovascular history, worsening respiratory acidosis, and pneumonia/COPD exacerbation, I feel that he is appropriate for admission for further evaluation and management. I had an interactive discussion with the hospitalist who admitted the patient in stable condition.
[2024-12-19 11:24] LABS: Basophils % 0.4 % (0.1-2.0); Eosinophils # 0.1 Kmm3 (0.0-0.4); Eosinophils % 0.9 % (0.1-12.0); Hemoglobin 13.6 g/dL (14.1-18.0); Immature Granulocytes # 0.02 10^3uL; Immature Granulocytes % 0.2 %; Lymphocytes # 1.5 K/mm3 (0.7-4.5); Lymphocytes % 16.8 % (10-50); Mean Corpuscular HGB Conc 33.2 g/dL (31.8-35.4); Mean Corpuscular Hemoglobin 29.3 pg (27.0-31.2); Mean Corpuscular Volume 88.4 fl (80-94); Mean Platelet Volume 9.7 fl (7.4-10.4); Monocytes # 0.6 K/mm3 (0.1-1.0); Monocytes % 6.9 % (1.7-9.3); Neutrophils # 6.7 K/mm3 (1.8-7.8); Neutrophils % 74.8 % (37.0-80.0); Nucleated Red Blood Cells # 0 10^3/uL; Nucleated Red Blood Cells % 0 %; Platelet Count 240 K/mm3 (142-424); Red Blood Count 4.64 M/mm3 (4.60-6.20); Red Cell Distribution Width 13.2 % (11.5-17.5); Red Cell Distribution Width-SD 42.9 fL
[2024-12-19 11:29] LABS: VBG HCO3 28.6 mmol/L (23-30); VBG Oxygen Saturation 54.7 % (50-70); VBG PCO2 61.6 mmol/L (35-51); VBG PH 7.29 mmol/L (7.31-7.41); VBG PO2 31.8 mmol/L (28-40); VBG Total CO2 30.5 mmol/L (23-27)
[2024-12-19] MEDS: MORPHINE 4MG/ML SYRINGE 4 MG IV (11:29)
[2024-12-19] MEDS: ONDANSETRON 4MG/2ML VIAL 4 MG IV (11:30)
[2024-12-19 11:32] LABS: Lactate Venous 2.1 mmol/L (0.4-2.0)
[2024-12-19 11:34] LABS: Activated Partial Thrombo Time 31.9 seconds (22.8-30.6); INR 1.01 (0.9-1.1); Prothrombin Time 11.2 seconds (10.1-12.5)
[2024-12-19 11:36] LABS: Alanine Aminotransferase 14 U/L (12-78); Albumin Level 4.3 g/dl (3.5-5.0); Albumin/Globulin Ratio 1.4 (1.1-1.8); Alkaline Phosphatase 57 U/L (38-126); Anion Gap 8.5 mEq/L (5-15); Aspartate Amino Transferase 32 U/L (17-59); Bilirubin,Total 0.9 mg/dl (0.2-1.3); Blood Urea Nitrogen 3 mg/dl (9-20); Calcium 9.3 mg/dl (8.4-10.2); Carbon Dioxide 31 mmol/L (22.0-30.0); Chloride 88 mmol/L (98-107); Creatinine Clearance Estimated 54 mL/min (50-200); Estimated Glomerular Filt Rate 163 ml/min (>60); GFR (African American) 197 ML/MIN (>60); Glucose 82 mg/dl (74-100); Potassium 4.5 mmoL/L (3.5-5.1); Sodium 123 mmol/L (136-145); Total Protein,Serum 7.3 g/dl (6.3-8.2)
--- OUTSIDE RECORDS SUMMARY | 2024-12-19 11:40 | XMS_ITS | Clinical Summary ---
Author Organization Healthcare Address [address] [place] [address] Care Team Providers Care Medical Claims Manager Name Role Phone Unavailable Primary Care Provider Unavailabl e Social History Tobacco Use Types Packs/Day Years Used Date Smoking Tobacco: Never Alcohol Use Standard Drinks/Week Comments No 0 (1 standard drink = 0.6 oz pur e alcohol) Sex and Gender Information Value Date Recorded Sex Assigned at Not on file Legal Sex Male 6:20 PM EDT Gender Identity Not on file Sexual Orientation Not on file Last Filed Vital Signs Vital Sign Reading Time Taken Comments Blood Pressure 160/86 07/29/2017 8:58 AM EST Pulse - - Temperature - - Respiratory Rate - - Oxygen Saturation - - Inhaled Oxygen Concentration - - Weight 73 kg (161 lb) 07/29/2017 8:58 AM EST Height 175.3 cm (5' 9 ) 07/29/2017 8:58 AM EST Body Mass Index 23.78 07/29/2017 8:58 AM EST Plan of Treatment Health Maintenance Due Date Last Done Comments [facility]-Depression Screening 1950 [facility]-Infant/Child/Adol SDOH Screenings 1950 [facility]- SDOH Screenings 02/09/1968 [facility]-Adult SDOH Screenings 02/09/1968 CT Colonography 1995 Colonoscopy 1995 FIT-DNA 1995 FIT 1995 FOBT 1995 Sigmoidoscopy 1995 [facility]-Colorectal Cancer Screening 1995 [facility]-Zoster Vaccines (2 of 3) 10/09/2014 08/14/2014 [id number] Vaccine (3 - 2023- season) 2024 08/24/2020, 07/27/2020 [facility]-DTaP,Tdap,and Td Vaccines (3 - Td or Tdap) 03/16/2024 03/16/2014, 03/16/2014, 02/01/2008 [facility]-RSV Vaccine: 60+ Years or (1 - 1-dose 75+ series) 2025 [facility]-Influenza Vaccine (Season Ended) 2025 04/30/2022, 04/24/2021, 04/10/2020, Additional history exists [facility]-Pneumococcal Vaccine: 50+ Years Completed 08/05/2016, 04/30/2015, 04/30/2015, Additional history exists HPV Vaccines Aged Out No longer eligi ble based on patient's age to complete this topic [facility]-HIB Vaccines Aged Out No longer e ligible based on patient's age to complete this topic [facility]-Hepatitis A Vaccines Aged Out No longer eligible based on patient's age to complete this topic [facility]-IPV Vaccines Aged Out No longer e ligible based on patient's age to complete this topic [facility]-Rotavirus Vaccines Aged Out No lo nger eligible based on patient's age to complete this topic Insurance [place] [id number] MEDICARE
[2024-12-19 11:47] LABS: Troponin I 0.01 ng/ml (0.00-0.034)
[2024-12-19] MEDS: 0.9 % SODIUM CHLORIDE 50 ML VIAL IV (11:55)
[2024-12-19] MEDS: IOPAMIDOL-370 (76%);100ML BOTTLE 75 ML IV (11:55)
[2024-12-19] MEDS: SODIUM CHLORIDE 0.9% 10ML SYR (RAD ONLY) 10 ML IV (11:55)
--- OUTSIDE RECORDS SUMMARY | 2024-12-19 12:17 | XMS_ITS ---
Author Name [facility] [place] [facility] [place] Address [address] [place] [address] Care Team Providers Care Desk Clerks Supervisor Name Role Phone IRASEMA GIRON Primary Care [...] PART A Jun 04, 2009 PART A [id number] [place] PATIENT MEDICARE (WNR) MEDICARE (M) PART A Jun 04, 2009 PART A [id number] [place] PATIENT MEDICARE (WNR) MEDICARE (M) PART A Jun 04, 2009 PART A [id number] [place] PATIENT MEDICARE (WNR) MEDICARE (M) PART A Jun 04, 2009 PART A [id number] [place] PATIENT MEDICARE (WNR) MEDICARE (M) PART A Jun 04, 2009 PART A [id number] [place] PATIENT Selected Encounter This section includes the information on record at [place] for the Encounter. Date/Time Encounter Type Encounter Description Reason Pro vider Source Dec 19, 2024 04:17 PM Outpatient Encounter ADMIN PAT ACTIVTIES (MASNONCT) IHE Encounter Template Text not used by [place] Plan of Treatment: Future Appointments (+ 6 months) and Future Tests (+/- 45 days) The Plan of Treatment section includes future care activities for the patient from all [place] treatmentfacilities. This section includes future appointments and [...] of theEncounter. The data comes from all [place] treatment facilities. Test Date/Time Test Type Test Details Facility Name Dec 11, 2024 03:47 PM Consult Order MED DERMAT OLOGY OUTPATIENT Cons Stage Manager's Choice [facility] Dec 25, 2024 12:00 AM Laboratory - Chemi stry Order PANEL 1 [id number] SP ONCE [facility] Dec 25, 2024 12:00 AM Laboratory - Chemi stry Order BNP (KEITH) [id number] SP [facility] Lab Results: +/- 30 days of the encounter This section includes the Chemistry and Hematology Lab Results on record with [place] for the patient. Radiology Reports and Pathology Reports are provided separately, in subsequent sections. Lab Results This section contains the Chemistry/Hematology Results that were resulted 30 days before or 30 daysafter the date of the Encounter. Date/Time Source Result Type Result - Unit Interpretation Reference Range Specimen Type Comment Dec 11, 2024 12:05 PM [facility] GLYCOHEMOGLOBIN BLOOD Specimen Type: BLOOD Comment: Prediabetes: 5.7%-6.4% Diabetes: >= 6.5% [place] guidelines for A1c interpretation: Glycemic control targets are based on Shared Decision Making between clinicians and patients. Criteria used to establish an A1c target recommendation can be found at https://www.oh.g ov/qualityandpat ientsafety/ and include the use of [...] and 9.27. Ref: https://ngsp.org /CAPdata.asp. The in-house [employer]-FFWD D-100 analyzer has a historical CV <= 2%. Contact the laboratory for further performance characteristics of this assay. Ordering Provider: IRASEMA GIRON Report Released Date/Time: Dec 11, 2024 11:48 AM Reporting Lab: [address] [id number] Performing Lab: [address] [id number] GLYCOHEMOGLOBIN 5.1 4.4-5.6 Dec 11, 2024 12:05 PM [facility] LIPID PROFILE PLASMA Specimen Type: [...] 11, 2024 11:48 AM Reporting Lab: [address] [address] Performing Lab: [place] [id number] CHOLESTEROL 151 mg/dL 0-199 TRIGLYCERIDE 60 mg/dL 0-149 HDL CHOLESTEROL 72 mg/dL H 40-69 DIRECT LDL CHOL. 70 mg/dL 0-100 Dec 11, 2024 12:05 PM [facility] CBC/PLT BLOOD Specimen Type: BLOOD No comment entered. Ordering Provider: IRASEMA GIRON Report Released Date/Time: Dec 11, 2024 11:48 AM Reporting Lab: [address] [id number] Performing Lab: [address] [id number] WBC 8.4 10*3/uL 5.0-10.0 RBC 4.51 10*6/uL L 4.6-6.2 HGB 13.2 g/dL L 14.0-18.0 HCT 40.5 L 42.0-52.0 MCV 89.8 fL 80.0-94.0 MCH 29.3 pg 27.0-31.0 MCHC 32.6 g/dL 32.0-36.0 PLT 241 10*3/uL 150-450 MPV 10.3 fL 9.0-13.1 RDW 13.2 11.0-16.0 NRBC 0.0 0.0-0.0 Dec 11, 2024 12:05 PM [facility] PANEL 5 PLASMA Specimen Type: [...] 11, 2024 11:48 AM Reporting Lab: [address] [id number] Performing Lab: [address] [phone] CREATININE 0.60 mg/dL L 0.72-1.25 UREA NITROGEN [...] and tobacco- related health factors from the [place] facility where the Encounter took place. Current Smoking Status This section includes the most current smoking, or tobacco-related health factor, from the [place] facility where the Encounter took place. Date/Time Current Smoking Status Comment Facil ity Apr 03, 2024 01:15 PM VA-TOBACCO NEVER USED PSYCHIATRIC Tobacco Use History This section includes a history of the smoking, or tobacco-related health factors, that were collected on or before the date of the Encounter. The data comes from the [place] facility where the Encounter took place. Date/Time Smoking Status/Tobacco Use Comment F acility Jan 21, 2016 04:53 PM NON-TOBACCO USE INPATIENT PSYCHIATRIC Jan 13, 2016 06:51 AM V9 QUIT TOBACCO >7 YEARS AGO PSYCHIATRIC Advance Directives: All historical and current Section Date Range: From patient's date of to the date document was created. This section includes ALL of a patient's completed or amended [place] Advance and Rescinded Directives. The entries below indicate that a directive exists for the patient, but an actual copy is not included with this document. The data comes from all [place] facilities. Date Advance Directives Provider Source Apr 16, 2010 ADVANCE DIRECTIVE ALEXEY SHEPHERD Encounter Notes: All associated encounter notes This section contains the clinical notes associated to the Encounter. Date/Time Encounter Note(s) Provider Source Dec 19, 2024 04:17 PM NONVA NOTE: LOCAL TITLE: [facility] SELF PRESENTING CARE COORD PLAN STANDARD TITLE: NONVA NOTE DATE OF NOTE: DEC 19, 2024@16:17 ENTRY DATE: DEC 19, 2024@16:17:45 AUTHOR: ZAKI COLE EXP COSIGNER: URGENCY: STATUS: COMPLETED Emergency Notification Intake Date Presenting to the Facility: Dec Method of Contact: Phone Community [facility] Name: Hospital: [facility] Address: City: [place]: [place] Zip Code: Phone : Community Facility Point of Contact: Name: Conchita Chief complaint: Chest Pain Primary Diagnosis: Hypoxia on BiPap Disposition Treatment in progress AOD contacted Dr Yee since is on BiPap. Dr Yee and OS Dr Dixon connected to discuss transfer. OS Dr Dixon states that is refusing to transfer to [facility]. Transfer refusal form faxed to OS @ [phone] with confirmation. /mona/ Enedina Cole [facility] Underwriter Solicitation Director on Duty (HOD) Signed: 12/19/2024 16:56 Receipt Acknowledged By: * AWAITING SIGNATURE * STEFANO YEE * AWAITING SIGNATURE * CHATO HOUSE * AWAITING SIGNATURE * SHIRA SHAH [facility]
[2024-12-19] MEDS: METHYLPREDNISOLONE SOD SUCC 125MG VIAL 125 MG IV (13:52)
[2024-12-19] MEDS: KETOROLAC 30MG/ML VIAL 15 MG IV (13:52)
[2024-12-19] MEDS: IPRATROPIUM/ALBUTEROL 3 ML NEB 9 ML IH (13:52)
[2024-12-19 14:37] LABS: Troponin I < 0.01 ng/ml (0.00-0.034)
--- NOTE | 2024-12-19 14:46 | PC.NURSE ---
ice chips and ice cream provided at this time
[2024-12-19 14:48] LABS: Lactate Venous 1.3 mmol/L (0.4-2.0); VBG Base Excess 0.6 mmol/L (-2.4-2.3); VBG HCO3 28.4 mmol/L (23-30); VBG PCO2 72.1 mmol/L (35-51); VBG PH 7.21 mmol/L (7.31-7.41); VBG PO2 42.8 mmol/L (28-40); VBG Total CO2 30.7 mmol/L (23-27)
[2024-12-19] MEDS: AZITHROMYCIN 250MG TABLET 500 MG PO (15:05)
[2024-12-19] MEDS: AMOXICILLIN/CLAVULANATE POTASSIUM 875/125MG TABLET 1 EACH PO (15:05)
--- NOTE | 2024-12-19 15:10 | P.HP_ITS ---
History of Present Illness *Admission Date: 12/19/24 *Reason for visit:: dyspnea *History of present illness: Mr. Mosher is a 74-year-old male with COPD, chronic hyponatremia, ptosis of the lungs, HFrEF, failure to thrive, A-fib, with LifeVest in place. Chronic oxygen requirement of 3 L. Was admitted to our facility a few months ago with similar presentation to today. States that he was at home and developed worsening pain over the past day or 2 in his left lower chest/rib cage. Worse with each breath. Denies any palpitations, nausea, vomiting. He did try nitro at home prior to coming to the ER with no benefit. Denies experience this pain devious [place]. Reports taking his medications at home including Eliquis. Denies any fever. Workup in the ER concern for respiratory acidosis. Labs with normal white count of 9.0, hemoglobin 13.6. Kidney function at baseline BUN 30, creatinine 0.5. Sodium low at 123 consistent with chronic hyponatremia. Elevated bicarb/carbon dioxide at 31. Blood gas with VBG showing respiratory acidosis. Medicine consulted for admission of left-sided chest pain/pleuritic pain and respiratory acidosis. I agreed to admit for further care. On my evaluation, patient is worn BiPAP for few hours and is doing better. Patient tolerating 3 to 4 L oxygen upon arrival to the floor. Alert and oriented x 4. Stating pain is somewhat better since receiving some meds in the ER. States he is hungry. [facility] Disclaimer: The information contained in this section may have been updated after the patient was seen, as this information can be updated by other users. Medical History Supplemental oxygen dependent Acute hypotension Adult failure to thrive Elevated bilirubin Elevated troponin Acute on chronic respiratory failure with hypoxia and hypercapnia Leukocytosis Pleural effusion Traumatic hematoma of head Fall Pneumonia Acute respiratory failure with hypoxemia Acute exacerbation of chronic obstructive pulmonary disease Chest pain Acute exacerbation of chronic obstructive pulmonary disease Abnormal electrocardiogram [ECG] [EKG] Chest pain Shortness of breath Tension pneumothorax Right upper lobe pulmonary nodule Dyspnea Increasing shortness of breath Acute hyponatremia Low back pain Congestive heart failure Hyponatremia Atrial fibrillation Hyponatremia COPD (chronic obstructive pulmonary disease) with acute bronchitis Sepsis HFrEF (heart failure with reduced ejection fraction) Pneumonia Non-ST elevation [place] (NSTEMI) Coronary artery disease Diastolic dysfunction HLD (hyperlipidemia) Hypertension Pulmonary emphysema Fibrosis of lung COPD exacerbation Dyspnea on exertion Bilateral carotid artery stenosis Swelling of right upper extremity Cardiomyopathy Surgical History H/O hernia repair Family History Other Colorectal cancer Social History Smoking Status: Former smoker alcohol intake: current alcohol intake frequency: holidays/special occasions only current occupational status: employed Travel in the last 8 weeks?: None household members: spouse 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 [employer] caffeine: No Have you lived/traveled outside US in past 30 days?: No Contact w/someone who lives/traveled outside US past 30 days?: No Exposure to someone with infectious disease in past 14 days?: No Do you have a fever (greater than 100.4 F or 38 C)?: No Have you tested positive for COVID-19?: No Exposed to someone with COVID-19 in past 14 days?: No Do you have a sore throat?: No Do you have a cough?: No Do you have any weakness?: No Do you have any diarrhea?: No Are you experiencing any unusual bleeding?: No Do you have any muscle aches/pain?: No Do you have any abdominal pain?: No Are you experiencing loss of taste or smell?: No Other Medical History Have you received the Flu Vaccine for this season: No Have you received the Pneumonia Vaccine: No Review of Systems Review of Systems Review of systems (narrative): 14 point review of systems performed, pertinent positives and negatives as per HPI Meds Home Medications and Allergies Home Medications ?Medication ?Instructions ?Recorded ?Confirmed ?Type aspirin 81 mg tablet,delayed 81 mg PO DAILY 12/19/21 0 09/18/24 History release albuterol sulfate 90 mcg/actuation 2 puff inhalation Q 4HP PRN 10/22/22 09/18/24 History aerosol inhaler Shortness of air apixaban 5 mg tablet 5 mg PO BID 10/22/22 5 History atorvastatin 40 mg tablet 40 mg PO HS 30 days #30 tabs 09/05/24 09/18/24 Rx fluticasone fur. 100 mcg-umeclid 1 inh inhalation ZECHARIAH Y 30 days #60 09/05/24 09/18/24 Rx 62.5 mcg-vilant 25 mcg ea inhalat.powder (Trelegy Ellipta) furosemide 40 mg tablet 40 mg PO DAILY 30 days #30 t abs 09/05/24 09/18/24 Rx sacubitril 24 mg-valsartan 26 mg 1 tab PO BID 15 days #30 tabs 09/16/24 09/18/24 Rx tablet (Entresto) sodium chloride 1,000 mg soluble 500 mg (1/2 x 1,000 m g) PO BID 30 09/16/24 09/18/24 Rx tablet days #60 tabs New Prescriptions to Start Prescriptions: Allergies Allergy/AdvReac Type Severity Reaction Status Date / Time No Known Allergies Allergy Verified 09/18/24 09:31 Exam Data for Last 24 hours Vital signs and Labs for Last 24 Hours: Temp Pulse Resp BP Pulse Ox O2 Del Method 97.7 F 87 13 108/63 L 100 Room Air 12/19/24 11:24 12/19/24 13:00 12/19/24 13:00 12/19/24 13:00 12/19/24 13:00 12/19/24 11:24 Laboratory Results - last 24 hr 12/19/24 11:08: WBC 9.0, RBC 4.64, Hgb 13.6 L, Hct 41.0 L, MCV 88.4, MCH 29.3, MCHC 33.2, RDW 13.2, Plt Count 240, MPV 9.7, Neut % (Auto) 74.8, Lymph % (Auto) 16.8, Addison % (Auto) 6.9, Eos % (Auto) 0.9, Baso % (Auto) 0.4, Neut # (Auto) 6.7, Lymph # (Auto) 1.5, Addison # (Auto) 0.6, Eos # (Auto) 0.1, Baso # (Auto) 0.0, PT 11.2, INR 1.01, APTT 31.9 H, Sodium 123 L, Potassium 4.5, Chloride 88 L, Carbon Dioxide 31 H, Anion Gap 8.5, BUN 3 L, Creatinine 0.50 L, Estimated Creat Clear 54, Estimated GFR 163, Est GFR ( Amer) 197, Glucose 82, Calcium 9.3, Total Bilirubin 0.9, AST 32, ALT 14, Alkaline Phosphatase 57, Troponin I 0.01, Total Protein 7.3, Albumin 4.3, Globulin 3.0, Albumin/Globulin Ratio 1.4 12/19/24 11:31: VBG pH 7.29 L, VBG pCO2 61.6 H, VBG pO2 31.8, VBG HCO3 28.6, VBG Total CO2 30.5 H, VBG O2 Saturation 54.7, VBG Base Excess 2.0, VBG Lactic Acid 2.1 H 12/19/24 13:51: Troponin I < 0.01 12/19/24 14:45: VBG pH 7.21 L, VBG pCO2 72.1 H, VBG pO2 42.8 H, VBG HCO3 28.4, VBG Total CO2 30.7 H, VBG O2 Saturation 69.0, VBG Base Excess 0.6, VBG Lactic Acid 1.3 I & O for Last 24 hours: Intake & Output 12/16/24 12/17/24 12/18/24 12/19/24 23:59 23:59 23:59 23:59 Weight 59.421 kg Constitutional Constitutional: mild distress, cachectic, chronically ill appearing and cooperative *Routine HEENT Exam Head: Present normocephalic Eye: Present EOMI, PERRL and normal accommodation ENT: Present mucous membranes moist *Routine Neck Exam Neck: Present supple and full ROM Routine Chest/Breast/Axilla Exam Chest wall: Absent tenderness *Routine Respiratory Exam Respiratory: Present prolonged expiratory phase, wheezes, diminished air movement, able to speak in complete sentences and symmetric chest movement; Absent rhonchi or crackles *Routine Cardiovascular Exam Cardiovascular: Present RRR, Normal S1, Normal S2 and tachycardia *Routine Abdominal Exam Abdominal: Present soft and normoactive bowel sounds *Routine Rectal Exam Rectal:: deferred *Routine Genitalia Exam Genitalia:: deferred *Routine Extremities Exam Extremities: Present pulses intact; Absent cyanosis or edema *Routine Skin Exam Skin: Present intact, dry and warm *Routine Neurological Exam Neurological: Present alert, oriented X3, CN II-XII intact, moving all extremities and normal speech; Absent altered mental status Routine Psychiatric Exam Psychiatric: Present normal affect, normal thought process, cooperative, good insight and good judgment Assessment and Plan *Assessment and plan (1) Acute on chronic respiratory failure with hypoxia and hypercapnia: Status: Acute Category: Medical Code(s): J96.21 - Acute and chronic respiratory failure with hypoxia; J96.22 - Acute and chronic respiratory failure with hypercapnia (2) Chronic hyponatremia: Status: Acute Category: Medical Code(s): E87.1 - Hypo-osmolality and hyponatremia (3) Acute exacerbation of chronic obstructive pulmonary disease: Status: Acute Category: Medical Code(s): J44.1 - Chronic obstructive pulmonary disease with (acute) exacerbation (4) HFrEF (heart failure with reduced ejection fraction): Status: Acute Category: Medical Code(s): I50.20 - Unspecified systolic (congestive) heart failure (5) Atrial fibrillation: Status: Acute Category: Medical Code(s): I48.91 - Unspecified atrial fibrillation Plan Mr. Mosher is a 74-year-old male with multiple comorbidities including CHF, COPD, paroxysmal A-fib. Presented with worsening left sided chest pain. Found to be hypercapnic. Discussed case with ER physician, request admission for further management and treatment of his acute on chronic hypercapnic respiratory failure. I agreed to admit for further treatment. Tolerating BiPAP with improving VBG. Pulmonology consulted to assist with care. Problems addressed as follows: #Acute on chronic hypoxic respiratory failure with hypercapnia # COPD exacerbation #Reactive airway disease ? Initial VBG showing hypercapnic respiratory failure, improving with BiPAP. - Pulmonology consulted to assist with care - CTA chest revealed improvements from pneumonia 3 months ago. Received antibiotics in the ED with amoxicillin and azithromycin. Will continue azithromycin 500 mg daily for 5 days. - Continue DuoNebs every 6 hours scheduled - Continue budesonide twice daily - White count 9.0, hemoglobin 13.6. Repeat CBC, CMP, magnesium ordered for the morning - repeat VBG ordered for the morning #Chest pain #HFrEF, chronic #Severe right heart failure, cor pulmonale #History of NSTEMI with stent to RCA ? During last visit, echo obtained showing reduced ejection fraction. Currently has LifeVest on. Will continue at this time. - Does not appear volume overloaded at this time. Blood pressure soft, home heart failure meds pending improvement in blood pressure. Evaluate in the morning ? 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 Likely explains, pulmonal. ? Patient continues to have soft pressures, making it challenging to start GDMT. #Chronic hyponatremia ? Sodium 123 on presentation. Baseline in the 120s. - Started on sodium tablets last visit. Holding at this time due to contraindication and heart failure. -Repeat CBC, CMP, magnesium ordered for the morning to monitor closely Full code Cardiac diet Resume Eliquis 5 mg twice
[2024-12-19 15:32] LABS: Reflex Lactic Add Lactic Reflex
--- NOTE | 2024-12-19 15:32 | PC.NURSE ---
house made aware of admission and need for bed
--- NOTE | 2024-12-19 15:32 | PC.NURSE ---
[facility] facility
--- NOTE | 2024-12-19 15:33 | PC.NURSE ---
respiratory in room at this time.
[2024-12-19 16:00] LABS: Lactic Acid Follow Up (RFLX 1) 2.3 mmol/L (0.7-2.1)
--- NOTE | 2024-12-19 16:29 | PC.NURSE ---
[facility] and [facility] were [facility] refusing [facility] to there facility and elected to stay here at [facility]
[2024-12-19 16:44] LABS: Adenovirus,PCR Not Detected (NotDetected); Bordetella Pertussis Not Detected (NotDetected); Chlamydophila Pneumoniae, PCR Not Detected (NotDetected); Coronavirus 19, PCR Not Detected (NotDetected); Coronavirus 229E Not Detected (NotDetected); Coronavirus NL63 Not Detected (NotDetected); Coronavirus OC43 Not Detected (NotDetected); Coronovirus HKU1,PCR Not Detected (NotDetected); Human Metapneumovirus Not Detected (NotDetected); Influenza A, PCR Not Detected (NotDetected); Influenza AH1, 2009 Not Detected (NotDetected); Influenza AH1, PCR Not Detected (NotDetected); Influenza AH3,PCR Not Detected (NotDetected); Influenza B, PCR Not Detected (NotDetected); Mycoplasma Pneumoniae, PCR Not Detected (NotDetected); Parainfluenza 1, PCR Not Detected (NotDetected); Parainfluenza 2, PCR Not Detected (NotDetected); Parainfluenza 3, PCR Not Detected (NotDetected); Parainfluenza 4, PCR Not Detected (NotDetected); Respiratory Syncytial Virus Not Detected (NotDetected); Rhinovirus/Enterovirus Not Detected (NotDetected)
[2024-12-19 16:55] LABS: VBG Base Excess -0.8 mmol/L (-2.4-2.3); VBG HCO3 26.4 mmol/L (23-30); VBG Oxygen Saturation 74.5 % (50-70); VBG PCO2 61.6 mmol/L (35-51); VBG PH 7.25 mmol/L (7.31-7.41); VBG PO2 44.3 mmol/L (28-40); VBG Total CO2 28.3 mmol/L (23-27)
[2024-12-19 17:23] LABS: Lactate Venous 2.3 mmol/L (0.4-2.0)
[2024-12-19 17:41] LABS: Reflex Lactic (2 hrs) Add Lactic Reflex
--- OUTSIDE RECORDS SUMMARY | 2024-12-19 18:14 | XMS_ITS | Continuity of Care Document ---
Author Name [facility] Organization [facility] Care Team Providers Care Medical Interpreter Name Role Phone [facility] Unavailable Unavailable Problems Combined list of problems from Department of Defense and Veterans Affairs facilities. It does not include entries that were removed or entered in error. Problem Status Onset Date Problem Type Date of Resolution Comments Source Vitamin D deficiency Active 018 Condition Unknown Organization History of cardiac arrest Active 017 Condition Unknown Organization Mixed hyperlipidemia Active 017 Condition Unknown Organization Old myocardial infarction4 Active 017 Condition 11/19/2009 - PRIMITIVO TEJEDA
[place] WAS ORIGINALLY [place] 2004. 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
with PTSD Unknown Organization Benign essential hypertension (SNOMED CT 1590633) Active 014 Condition Unknown Organization Carotid artery stenosis1 Active 014 Condition 03/22/2009 - PRIMITIVO TEJEDA
CHAS., 03/23/09. Unknown Organization 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 (SNOMED CT 151784116) Active 014 Condition Unknown Organization Gastroesophageal reflux disease Active 014 Condition Unknown Organization Hearing loss Active 014 Condition Unknown Organization Posttraumatic stress disorder Active 014 Condition Unknown Organization Spinal stenosis in cervical region Active 014 Condition Unknown Organization Tinnitus Active 014 Condition Unknown Organization Essential Hypertension (ICD-9-CM 401.9) Active 008 Condition Unknown Organization Personal History of Exposure to Agent Orange3 Active 008 Condition 12/07/2007 - SHARRON FABIAN
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
ULNAR ENTRAPMENT, EMG, 02/06.

01/31 - PRIMITIVO TEJEDA
LT. ARM, EMG NEG.

01/31 - PRIMITIVO TEJEDA
HAND, MRI C-SPINE MILD STENOSIS C5-5&C6-7 ,01/06,[place].

05/19 - LAURA WASSERMAN
05/09 left arm emg neg

08/31 - LAURA WASSERMAN
02/06 emg ulnar entrap elbow

08/31 - LAURA WASSERMAN
01/06 mri c spine mild sten c5-6 c6-7

02/25 - LAURA WASSERMAN
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 W/CLAUDICATION Active Condition Jun 03, 2007 Entered By: LAURA WASSERMAN Comment: td bilat 0.77.78 , 05/11 [facility] Anxiety (SNOMED CT 88404071) Active Condition [place] ASCVD (ICD-9-CM 429.2) Active Condition [facility] Asthma ([facility] 545048357) Active Condition [facility] Atherosclerosis of Arteries of the Extremities W/Intermittent Claudication Active Condition Jan 25, 2012 Entered By: BISMARK FOOTE Comment: [facility] Benign essential hypertension (SNOMED CT 0347121) Active Condition [facility] CAD - Coronary Artery Disease ([facility] 04174198) Active Condition [facility] Carotid artery stenosis Active Condition [facility] Chalazion * (ICD-9-CM 373.2) Active Condition [facility] COPD - Chronic Obstructive Pulmonary Disease ([facility] 29882830) Active Condition [facility] Coronary Artery Disease Active Condition Mar 01, 2008 Entered By: PRIMITIVO TEJEDA Comment: WITH APICAL ISHC. PERSISTINE, NUC. STR. T., 02/15/08.Mar 01, 2008 Entered By: PRIMITIVO TEJEDA Comment: W ANGINA PECTORIS.May 04, 2008 Entered By: PRIMITIVO TEJEDA Comment: PTI OF STENOSED STENT IN RCA, [facility], 04/11.Jan 25, 2012 Entered By: BISMARK FOOTE Comment: [place] 2005 [facility] Depression (SNOMED CT 62875275) Active Condition [facility] Depressive Disorder NOS * (ICD-9-CM 311./300.4) Active Condition Jan 25, 2012 Entered By: BISMARK FOOTE Comment: with PTSD [facility] Dyslipidemia Active Condition [facility] Essential Hypertension (ICD-9-CM 401.9) Active Condition [facility] Exposure to Potentially Hazardous Substance ([facility] [id number]) Active Condition Feb 03 4 Entered By: SEBASTIAN BEEBE Comment: AO [facility] 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 (SNOMED CT 823706638) Active Condition [facility] Gastroesophageal reflux disease Active Condition [facility] Hearing loss Active Condition [facility] Heart Arrest Active Condition Sep 24, 2004 Entered By: LAURA WASSERMAN Comment: 09/15/04 Card arrest, rapid at fib, poss aspirationSep 24, 2004 Entered By: LAURA WASSERMAN Comment: Cath stent RCA, rx asa, plavix, metop, hgb -13Sep 24, 2004 Entered By: LAURA WASSERMAN Comment: was dc on augmentin, nebulizer, o2,Sep 24, 2004 Entered By: LAURA WASSERMAN Comment: Etoh intox on admitJun 2006 Entered By: LAURA WASSERMAN Comment: 12/10/06 Hosp chest pain stentAug 2006 Entered By: LAURA WASSERMAN Comment: 02/22/07 Submax stress test negOct 2006 Entered By: LAURA WASSERMAN Comment: echo 02/08 ef 58 [facility] Heart failure Active Condition [facility] Hemorrhoid Active Condition [facility] Hernia, Inguinal Active Condition Jun 09, 2004 Entered By: LAURA WASSERMAN Comment: age 13 R side [facility] History of Alcohol Abuse ([facility] 122339190) Active Condition [facility] History of cardiac arrest Active Condition [facility] HTN - Hypertension ([facility] 15524697) Active Condition [facility] Hyperlipidemia ([facility] 85182413) Active Condition [facility] Hyperlipidemia * (ICD-9-CM 272.4) Active Condition [facility] Mixed hyperlipidemia Active Condition [facility] Moderate chronic obstructive pulmonary disease Active Condition Jul 15 Entered By: TIFF PELLETIER Comment: LDCT done 05/2023 and repeat in 05/2024 [facility] Neck Pain Active Condition Jun 09 Entered By: LAURA WASSERMAN Comment: whiplash from job related accident [facility] Occlusion and Stenosis of Carotid Artery, without Cerebral Infarction Active Condition Mar 22, 2009 Entered By: PRIMITIVO TEJEDA Comment: CHAS., 03/23/09. [facility] Old myocardial infarction Active Condition [facility] Pain in joint involving shoulder region (ICD-9-CM 719.41) Active Condition Jul 14, 2004 Entered By: LAURA WASSERMAN Comment: R shoulder , has had steroids injec [facility] Pain in left arm Active Condition [facility] Peripheral arterial occlusive disease Active Condition [facility] Peripheral Nerve Disease Active Condition Feb 25, 2005 Entered By: LAURA WASSERMAN Comment: hand , mri c spine mild stenosisFe2005 Entered By: LAURA WASSERMAN Comment: 01/06 mri c spine mild sten c5-6 c6-7Feb 2005 Entered By: LAURA WASSERMAN Comment: 02/06 emg ulnar entrap elbowNov 2006 Entered By: LAURA WASSERMAN Comment: 05/09 left arm emg neg [facility] Peripheral Nerve Disease Active Condition Feb 01, 2008 Entered By: PRIMITIVO TEJEDA Comment: HAND, MRI C-SPINE MILD STENOSIS C5-5&C6-7 ,01/06,[place].Feb 01, 2008 Entered By: PRIMITIVO TEJEDA Comment: ULNAR ENTRAPMENT, EMG, 02/06.Feb 01, 2008 Entered By: PRIMITIVO TEJEDA Comment: LT. ARM, EMG NEG.Jan 25, 2012 Entered By: BISMARK FOOTE Comment: [facility] Personal History of Exposure to Agent [place] Active Condition Jan 25, 2012 Entered By: BISMARK FOOTE Comment: [facility] Posttraumatic stress disorder Active Condition [facility] Renal artery stenosis Active Condition [facility] Sensorineural hearing loss, bilateral Active Condition [facility] Spinal stenosis in cervical region Active Condition [facility] Tinnitus Active Condition [facility] Tobacco Use Disorder Active Condition [facility] 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 [facility] carotid artery calcifications Inactive Condition 01/25/2012 Feb 27, 2009 Entered By: PRIMITIVO TEJEDA Comment: NOTED ON DENTAL X-RAYS, PER DR. MULLINS, 02/20/09 [facility] Cervicalgia Inactive Condition 01/25/2012 [facility] Chest Pain * (ICD-9-CM 786.50) Inactive Condition 01/25/2012 [facility] COGNITIVE DISORDER NOS Inactive Condition 01/25/2012 Jan 25, 2012 Entered By: BISMARK FOOTE Comment: [facility] Coronary arteriosclerosis Inactive Condition 02/14/2021 [facility] Coronary stent site Inactive Condition 02/14/2021 [facility] Hyperkalemia Inactive Condition 03/01/2008 [facility] Inguinal hernia, without mention of obstruction or gangrene Inactive Condition 01/25/2012 Feb 01, 2008 Entered By: PRIMITIVO TEJEDA Comment: RIGHT, S/P REPAIR AT AGE 13. [facility] Limb pain at rest due to atherosclerosis of [place] artery (SNOMED CT [id number]) Inactive Condition 02/14/2021 [facility] Neoplasm of uncertain behavior of skin (ICD-9-CM 238.2) Inactive Condition 01/25/2012 [facility] Neuritis of the ulnar nerve (ICD-9-CM 723.4) Inactive Condition 01/25/2012 [facility] Nicotine Dependence (DSM-IV 305.1/ICD-9-CM 305.1) Inactive Condition 02/22/2007 [facility] Old Myocardial Infarction (ICD-9-CM 412.) Inactive Condition 01/25/2012 Mar 01, 2008 Entered By: PRIMITIVO TEJEDA Comment: OLD APICAL INFARCT, NUC. STR. TEST, 02/15/08Ma2009 Entered By: PRIMITIVO TEJEDA Comment: [place] WAS ORIGINALLY IN 2004. [facility] Oral Ulcer (ICD-9-CM 528.9) Inactive Condition 01/25/2012 [facility] Other and unspecified hyperlipidemia Inactive Condition 01/25/2012 [facility] Pain in joint involving shoulder region Inactive Condition 01/25/2012 Feb 01, 2008 Entered By: PRIMITIVO TEJEDA Comment: RIGHT SHOULDER AND NECK. [facility] Shoulder pain Inactive Condition 02/14/2021 [facility] Tobacco Use Disorder, Remission Inactive Condition 01/25/2012 Oct 17, 2009 Entered By: PRIMITIVO TEJEDA Comment: SINCE 04/24/2008. [facility] Ulnar nerve entrapment at elbow Inactive Condition 02/14/2021 [facility] Unspecified disorder of the teeth and supporting structures (ICD-9-CM 525.9) Inactive Condition 01/25/2012 [facility] Unspecified hemorrhoids without mention of complication Inactive Condition 10/01/2011 [facility] C Unspecified site of sprain and strain (ICD-9-CM 848.9) Inactive Condition 01/25/2012 [facility] Diagnosis: ICD-10-CM I25.10 Athscl heart disease of [place] coronary artery w/o ang pctrs Active Diagnosis [facility] Diagnosis: ICD-10-CM Z71.89 Other specified counseling Active Diagnosis [facility] Diagnosis: ICD-10-CM J44.9 Chronic obstructive pulmonary disease, unspecified Active Diagnosis [facility] Diagnosis: ICD-10-CM J96.11 Chronic respiratory failure with hypoxia Active Diagnosis [facility] Diagnosis: ICD-10-CM Z51.81 Encounter for therapeutic drug level monitoring Active Diagnosis [facility] Diagnosis: ICD-10-CM H52.4 Presbyopia Active Diagnosis [facility] Diagnosis: ICD-10-CM I10 Essential (primary) hypertension Active Diagnosis [facility] Diagnosis: ICD-10-CM R68.89 Other general symptoms and signs Active Diagnosis [facility] Diagnosis: ICD-10-CM R06.83 Snoring Active Diagnosis [facility] Diagnosis: ICD-10-CM R06.81 Apnea, not elsewhere classified Active Diagnosis [facility] Diagnosis: ICD-10-CM I73.9 Peripheral vascular disease, unspecified Active Diagnosis [facility] Diagnosis: ICD-10-CM J44.1 Chronic obstructive pulmonary disease w (acute) exacerbation Active Diagnosis [facility] Diagnosis: ICD-10-CM F43.12 Post-traumatic stress disorder, chronic Active Diagnosis [facility] Diagnosis: ICD-10-CM I65.29 Occlusion and stenosis of unspecified carotid artery Active Diagnosis [facility] Diagnosis: ICD-10-CM K40.90 Unil inguinal hernia, w/o obst or gangr, not spcf as recur Active Diagnosis [facility] Diagnosis: ICD-10-CM Z98.890 Other specified postprocedural states Active Diagnosis [facility] Diagnosis: ICD-10-CM Z71.81 Spiritual or voodoo counseling Active Diagnosis [facility] Diagnosis: ICD-10-CM Z01.818 Encounter for other preprocedural examination Active Diagnosis [facility] Diagnosis: ICD-10-CM K62.5 Hemorrhage of anus and rectum Active Diagnosis [facility] Diagnosis: ICD-10-CM Z12.11 Encounter for screening for malignant neoplasm of colon Active Diagnosis [facility] Diagnosis: ICD-10-CM J96.91 Respiratory failure, unspecified with hypoxia Active Diagnosis [facility] Diagnosis: ICD-10-CM Z13.30 Encntr screen exam for mental hlth and behavrl disord, unsp Active Diagnosis [facility] Diagnosis: ICD-10-CM M79.602 Pain in left arm Active Diagnosis [facility] Diagnosis: ICD-10-CM I50.9 Heart failure, unspecified Active Diagnosis [facility] Diagnosis: ICD-10-CM J45.50 Severe persistent asthma, uncomplicated Active Diagnosis [facility] Diagnosis: ICD-10-CM J45.998 Other asthma Active Diagnosis [facility] Medications Combined list of outpatient medications from Department of Defense and [facility] Affairs facilities.Medications provided include 1) outpatient medications from the last 15 months, and 2) patient-reported medications. Medication Details Route Status Patient Instructions Prescription Expires Prescription Number Last Dispense Date Ordering Provider Order Date Order Qty Source ALBUTEROL SO4 0.083% INHL,3ML USE 1 AMP (2.5MG/3 ML) IN NEBULIZE R EVERY 6 HOURS NEEDED FOR BREATHIN G RESPIR ATORY (INHAL ATION) ACTIVE 11/21/2025 [id number] JACKSON GONZALEZ J 2024 120 [place] [facility] ALBUTEROL SO4 3MG/IPRATRO PIUM BR 0.5MG/3ML INHL,3ML USE 1 AMP (3ML) IN NEBULIZE R FOUR TIMES A DAY FOR BREATHIN G RESPIR ATORY (INHAL ATION) ACTIVE 07/14/2024 [id number] 4 FCO ZAMBRANO P 2023 120 [place] [facility] ALBUTEROL SO4 90MCG/ACTUA T (CFC-F) INHL,ORAL,8 .5GM INHALE 2 PUFFS BY INHALATI ON EVERY 4 HOURS NEEDED FOR WHEEZING , COUGHING OR SHORTNES S OF BREATH RESPIR ATORY (INHAL ATION) ACTIVE 03/10/2025 [id number] MARYBEL GIRON 2023 3 [place] [facility] ALBUTEROL SO4 90MCG/ACTUA T (CFC-F) INHL,ORAL,8 .5GM INHALE 2 PUFFS BY INHALATI ON EVERY 4 HOURS NEEDED FOR WHEEZING , COUGHING OR SHORTNES S OF BREATH RESPIR ATORY (INHAL ATION) DISCONT INUED 12/09/2024 [id number] 4 Adele ALCALA 2023 3 [place] ALBUTEROL SO4 90MCG/ACTUA T (CFC-F) INHL,ORAL,8 .5GM INHALE 2 PUFFS BY MOUTH FOUR TIMES A DAY NEEDED FOR SHORTNES S OF BREATH RESPIR ATORY (INHAL ATION) DISCONT INUED BY TAYLOR Petersen 03/05/2024 [id number] 4 LEONARDA BEEBE 2023 1 [place] [facility] ALBUTEROL SO4 90MCG/ACTUA T (CFC-F) INHL,ORAL,8 .5GM INHALE 2 PUFFS BY INHALATI ON EVERY 4 HOURS NEEDED FOR WHEEZING , COUGHING OR SHORTNES S OF BREATH RESPIR ATORY (INHAL ATION) DISCONT INUED 02/01/2024 [id number] 4 Adele ALCALA 2023 3 [place] AMLODIPINE BESYLATE 5MG TAB TAKE ONE TABLET BY MOUTH DAILY FOR HIGH BLOOD PRESSURE -DO NOT DRINK GRAPEFRU IT JUICE WHILE ON THIS DRUG ORAL ACTIVE 04/04/2025 [id number] 4 ZAHRA SEGUNDO 2023 90 [place] APIXABAN 5MG TAB TAKE ONE TABLET BY MOUTH TWICE A DAY TO THIN BLOOD. CALL [facility] [phone] WITH QUESTION S OR CONCERNS ORAL ACTIVE 08/01/2025 [id number] 5 TOREY GREGORY L 2024 180 [place] APIXABAN 5MG TAB TAKE ONE TABLET BY MOUTH TWICE A DAY TO THIN BLOOD. CALL [facility] WITH QUESTION S OR CONCERNS ORAL DISCONT INUED 06/07/2024 [id number] TOREY GREGORY DRA L 2022 120 [place] ATORVASTATI N CA 80MG TAB TAKE ONE TABLET BY MOUTH DAILY FOR CHOLESTE ROL -DO NOT DRINK GRAPEFRU IT JUICE WHILE ON THIS DRUG ORAL ACTIVE 07/14/2024 [id number] 4 FCO ZAMBRANO MAL P 2023 90 [place] [facility] [place] BISOPROLOL FUMARATE 10MG TAB TAKE ONE TABLET BY MOUTH DAILY FOR BLOOD PRESSURE /HEART ORAL ACTIVE 07/14/2024 [id number] 4 FCO ZAMBRANO MAL P 2023 90 [place] [facility] [place] EMPAGLIFLOZ IN 25MG TAB TAKE ONE-HALF TABLET BY MOUTH EVERY MORNING FOR HEART FAILURE ORAL ACTIVE 12/19/2025 [id number] ZAHRA SEGUNDO W 2024 45 [place] [facility] EPINEPHRINE (EQV-EPI-PE N) 0.3MG/0.3ML INJECTOR INJECT 0.3MG/1 SYRINGE INTO THE MUSCLE DIRECTED ONCE NEEDED FOR SEVERE ALLERGIC REACTION INTRAM USCULA R ACTIVE 08/05/2024 [id number] Adele ALCALA 2023 2 [place] [facility] ERGOCALCIFE ROL 1,250MCG (50,000UNIT ) CAP TAKE ONE CAPSULE BY MOUTH EVERY SEVEN DAYS FOR SUPPLEME NT ORAL ACTIVE 07/15/2024 [id number] FCO ZAMBRANO MAL P 2023 13 [place] [facility] FLUTICASONE 500MCG/SALM ETEROL 50MCG INHL,ORAL,D ISKUS,60 INHALE 1 INHALATI ON BY MOUTH TWICE A DAY FOR BREATHIN G -RINSE MOUTH AND SPIT AFTER EACH USE RESPIR ATORY (INHAL ATION) 07/14/2024 [id number] 4 FCO ZAMBRANO P 2023 3 [place] [facility] [place] MOMETASONE FUROATE 200MCG/ACTU AT INHL,ORAL,1 20D,13GM INHALE 2 PUFFS BY MOUTH TWICE A DAY FOR BREATHIN G -RINSE MOUTH AND SPIT AFTER EACH USE RESPIR ATORY (INHAL ATION) ACTIVE 11/21/2025 [id number] 5 JACKSON GONZALEZ 2024 3 [place] NITROGLYCER IN 0.4MG TAB,SUBLING UAL,BTL,25 DISSOLVE ONE TABLET UNDER THE TONGUE EVERY 5 MINUTES UP TO 3 DOSES FOR CHEST PAIN -IF NO RELIEF CALL 911 SUBLIN GUAL ACTIVE 08/01/2025 [id number] 5 ZAHRA SEGUNDO W 2024 1 [place] NITROGLYCER IN 0.4MG TAB,SUBLING UAL,BTL,25 DISSOLVE ONE TABLET UNDER THE TONGUE EVERY 5 MINUTES UP TO 3 DOSES FOR CHEST PAIN -IF NO RELIEF CALL 911 SUBLIN GUAL DISCONT INUED 06/21/2024 [id number] 4 ZAHRA SEGUNDO W 2022 1 [place] NO KNOWN NON-VA MEDS NOT APPLIC ABLE ACTIVE Clifton IVERSON 2014 [place] [facility] OLODATEROL 2.5MCG/TIOT ROPIUM 2.5MCG/ACTU AT INHL,ORAL,6 0D,4GM INHALE 2 PUFFS BY MOUTH DAILY FOR BREATHIN G RESPIR ATORY (INHAL ATION) ACTIVE 11/21/2025 [id number] 5 JACKSON GONZALEZ 2024 3 [place] POLYVINYL ALCOHOL 1.4% SOLN,OPH PUT 1 DROP IN EYE(S) DIRECTED FOR DRY EYES OPHTHA LMIC ACTIVE 11/16/2025 [id number] 5 MARYBEL GIRON 2024 15 [place] [facility] PREDNISONE 20MG TAB TAKE TWO TABLETS BY MOUTH EVERY MORNING FOR LUNGS WITH FOOD ORAL DISCONT INUED BY PROVIDE R 03/05/2024 [id number] 4 LEONARDA BEEBE 2023 8 [place] [facility] PREDNISONE 20MG TAB TAKE TWO TABLETS BY MOUTH DAILY FOR LUNGS ORAL 07/26/2024 [id number] 4 Adele ALCALA 2023 180 [place] PREDNISONE 5MG TAB TAKE SIX TABLETS BY MOUTH DAILY FOR 2 WEEKS, THEN TAKE FOUR TABLETS DAILY FOR 2 WEEKS, THEN TAKE TWO TABLETS DAILY FOR 2 WEEKS, THEN TAKE ONE TABLET DAILY FOR 2 WEEKS, THEN TAKE ONE TABLET EVERY OTHER DAY FOR 2 WEEKS FOR LUNGS ORAL 08/17/2024 [id number] 4 Adele ALCALA [facility] SACUBITRIL 24MG/VALSAR COFFMAN 26MG TAB TAKE 1 TABLET BY MOUTH TWICE A DAY FOR HEART FAILURE ORAL ACTIVE 12/19/2025 [id number] 5 ZAHRA SEGUNDO W 2024 180 [place] [facility] SULFAMETHOX AZOLE 800MG/TRIME THOPRIM 160MG TAB TAKE 1 TABLET BY MOUTH DAILY FOR PREVENTI ON OF INFECTIO N ORAL 07/26/2024 [id number] 4 Adele ALCALA 2023 90 [place] TIOTROPIUM 2.5MCG/ACTU AT INHL,ORAL,6 0D,4GM INHALE 2 INHALATI ONS BY MOUTH DAILY FOR BREATHIN G RESPIR ATORY (INHAL ATION) 07/14/2024 [id number] 4 FCO ZAMBRANO 2023 3 [place] [facility] Allergies, Adverse Reactions, Alerts Combined list of allergies from Department of Defense and Veterans Affairs facilities. It does not include entries that were removed or entered in error. Substance Category Reaction Severity Reaction type Status Date Reported Comments Source LISINOPRIL Propensity to adverse reactions to drug (finding) Dyspnea active 3 [place] [facility] WN Vaccine Drug allergy Active 7 20:38 [facility]

flu vacc 'sick' One or More [facility] Facilities EST VACCINES Propensity to adverse reactions to drug (finding) active 7 [place] [facility] Immunizations Combined list of available immunizations from the Department of Defense and Veterans Affairs facilities. Immunization Series Date Given Administered By Site Reaction Lot Number CVX Code Drug Director Business Intelligence Status Comments Source TDAP 1 2023 115 complet ed HISTORICA L INFORMATI ON - [facility] RSV, BIVALENT, PROTEIN SUBUNIT RSVPREF, DILUENT RECONSTITUTED , 0.5 ML, PF 2023 MIREYA TINSLEY LEFT DELTO ID [id number] 305 complet ed [facility] [place], [place] [facility] COVID-19 (PFIZER), MRNA, LNP-S, PF, NANCY-SUCROSE, 30 MCG/0.3 ML (AGES 12+ YEARS) 1 2022 SHANNON YAÑEZ LEFT DELTO ID [id number] 309 complet ed [facility] [place] [facility] [place], [place] [facility] INFLUENZA, HIGH-DOSE, QUADRIVALENT 2022 SHANNON YAÑEZ RIGHT DELTO ID [id number] A 197 complet ed [facility] [place] [facility] [place], [place] [facility] INFLUENZA, HIGH-DOSE, QUADRIVALENT 2022 SIVA MARTINEZ LEFT DELTO ID [id number] A 197 complet ed Completed Series, [facility] [place] [facility] [place], [place] [facility] [place] INFLUENZA, INJECTABLE, QUADRIVALENT, PRESERVATIVE FREE 2021 150 complet ed [place] [facility] INFLUENZA, INJECTABLE, QUADRIVALENT, PRESERVATIVE FREE 2020 150 complet ed [place] [facility] [place] influenza, injectable, quadrivalent- pf 2020 150 complet ed influenza , injectabl e, quadrival ent-pf 04/24/21 Recorded Ambulat ory Pharmac y COVID-19 (MODERNA), MRNA, LNP-S, PF, 100 MCG/0.5 ML DOSE 2 2020 207 complet ed [place] [facility] COVID Vaccine Moderna 2020 207 complet ed COVID Vaccine Moderna 08/24/20 Recorded Ambulat ory Pharmac y COVID-19 (MODERNA), MRNA, LNP-S, PF, 100 MCG/0.5 ML DOSE 1 2020 207 complet ed [place] [facility] COVID Vaccine Moderna 2020 207 complet ed COVID Vaccine Moderna 07/27/20 Recorded Ambulat ory Pharmac y INFLUENZA, UNSPECIFIED FORMULATION 2019 88 complet ed [place] [facility] influenza virus vaccine, unspecified 2019 88 complet ed influenza virus vaccine, unspecifi ed 04/10/20 Recorded Ambulat ory Pharmac y INFLUENZA, INJECTABLE, QUADRIVALENT, PRESERVATIVE FREE 2019 150 complet ed [place] [facility] ZOSTER RECOMBINANT 2 2019 187 complet ed [place] [facility] zoster vaccine, inactivated 2019 187 complet ed zoster vaccine, inactivat ed 03/19/20 Recorded Ambulat ory Pharmac y influenza, injectable, quadrivalent- pf 2019 150 complet ed influenza , injectabl e, quadrival ent-pf 03/19/20 Recorded Ambulat ory Pharmac y ZOSTER RECOMBINANT 1 2019 187 complet ed [place] [facility] zoster vaccine, inactivated 2019 187 complet ed zoster vaccine, inactivat ed 07/14/19 Recorded Ambulat ory Pharmac y influenza, injectable, quadrivalent- pf 2018 150 complet ed influenza , injectabl e, quadrival ent-pf 05/25/19 Recorded Ambulat ory Pharmac y INFLUENZA, SEASONAL, INJECTABLE 2017 141 complet ed [facility] [place] [facility], seasonal, injectable 2017 141 complet ed Result Comment: computer Ambulat ory Pharmac y INFLUENZA A & B (HISTORICAL) 2017 88 complet ed [place] [facility] influenza virus vaccine, unspecified 2017 88 complet ed influenza virus vaccine, unspecifi ed 09/09/17 Recorded Ambulat ory Pharmac y [id number] (HISTORICAL) 2016 133 complet ed [place] [facility] [place] pneumococcal 13-valent conjugate (PCV13) 2016 133 complet ed pneumococ lyudmila 13-valent conjugate (PCV13) 08/05/16 Recorded Ambulat ory Pharmac y INFLUENZA A & B (HISTORICAL) 2015 88 complet ed [place] [facility] [place] INFLUENZA, HIGH DOSE SEASONAL 2015 NONE 135 complet ed lot # [id number] ., exp Dec 31, 2016 [place] [facility] influenza, seasonal,high dose-pf 2015 135 complet ed Result Comment: lot # [id number] ., exp Dec 31, 2016 Ambulat ory Pharmac y influenza virus vaccine, unspecified 2015 88 complet ed influenza virus vaccine, unspecifi ed 03/30/16 Recorded Ambulat ory Pharmac y FLU,3 YRS (HISTORICAL) 2014 88 complet ed [place] [facility] PNEUMOCOCCAL POLYSACCHARID E PPV23 2014 33 complet ed [place] [facility] PNEUMOCOCCAL, UNSPECIFIED FORMULATION 2014 SHO LEWIS 109 complet ed [place] [facility] pneumococcal vaccine, unspecified 2014 109 complet ed pneumococ lyudmila vaccine, unspecifi ed 04/30/15 Recorded Ambulat ory Pharmac y pneumococcal polysaccharid e, 23 valent 2014 33 complet ed pneumococ lyudmila polysacch aride, 23 valent 04/30/15 Recorded Ambulat ory Pharmac y influenza virus vaccine, unspecified 2014 88 complet ed influenza virus vaccine, unspecifi ed 04/30/15 Recorded Ambulat ory Pharmac y [id number] (HISTORICAL) 2014 33 complet ed [place] [facility] PNEUMOCOCCAL, UNSPECIFIED FORMULATION 2014 109 complet ed [place] [facility] [place] pneumococcal vaccine, unspecified 2014 109 complet ed pneumococ lyudmila vaccine, unspecifi ed 02/11/15 Recorded Ambulat ory Pharmac y pneumococcal polysaccharid e, 23 valent 2014 33 complet ed pneumococ lyudmila polysacch aride, 23 valent 02/11/15 Recorded Ambulat ory Pharmac y ZOSTER LIVE 2014 121 complet ed in CPRS [place] [facility] zoster vaccine live 2014 121 complet ed Result Comment: in CPRS Ambulat ory Pharmac y DTP 2013 01 complet ed [place] [facility] FLU,3 YRS (HISTORICAL) 2013 88 complet ed [place] [facility] TDAP 2013 115 complet ed jlv computer [place] [facility] tetanus, diphtheria, acellular pertu is 2013 115 complet ed Result Comment: jlv computer Ambulat ory Pharmac y diphtheria/te tanus toxoids/pertu is 2013 01 complet ed diphtheri a/tetanus toxoids/p ertussis 03/16/14 Recorded Ambulat ory Pharmac y influenza virus vaccine, unspecified 2013 88 complet ed influenza virus vaccine, unspecifi ed 03/16/14 Recorded Ambulat ory Pharmac y INFLUENZA, UNSPECIFIED FORMULATION 2012 88 complet ed [facility] influenza virus vaccine, unspecified 2012 88 complet ed influenza virus vaccine, unspecifi ed 04/26/13 Recorded Ambulat ory Pharmac y INFLUENZA, UNSPECIFIED FORMULATION 2011 88 complet ed [facility] influenza virus vaccine, unspecified 2011 88 complet ed influenza virus vaccine, unspecifi ed 03/14/12 Recorded Ambulat ory Pharmac y INFLUENZA, UNSPECIFIED FORMULATION 2010 88 complet ed [facility] influenza virus vaccine, unspecified 2010 88 complet ed influenza virus vaccine, unspecifi ed 05/26/11 Recorded Ambulat ory Pharmac y INFLUENZA, UNSPECIFIED FORMULATION 2009 88 complet ed [facility] influenza virus vaccine, unspecified 2009 88 complet ed influenza virus vaccine, unspecifi ed 04/29/10 Recorded Ambulat ory Pharmac y TD(ADULT) UNSPECIFIED FORMULATION 2007 139 complet ed Left Delt [facility] Td(adult) unspecified formulation 2007 139 complet ed Result Comment: Left Delt Ambulat ory Pharmac y PNEUMOCOCCAL (HISTORICAL) 2007 NONE 109 complet ed Left Deltoid (IM) [facility] pneumococcal vaccine, unspecified 2007 109 complet ed Result Comment: Left Deltoid (IM) Ambulat ory Pharmac y TETANUS TOXOID, UNSPECIFIED FORMULATION 1999 112 complet ed [facility] tetanus toxoid unspecified formulation 1999 112 complet ed tetanus toxoid unspecifi ed formulati on 05/05/00 Recorded Ambulat ory Pharmac y Results Combined list of recent chemistry, hematology and other laboratory results from [employer] and [employer], ranging from 15 months to all on record, depending upon the facility. Order Name Results Value Reference Range Date Interpretation Specimen Comments Source CBC/PLT LEUKOCYTES [#/VOLUME] IN BLOOD BY AUTOMATED COUNT 8.4 10*3/uL 5.0 - 10.0 12/11 Specimen Type: BLOOD No comment entered. Ordering Provider: TARUN GIRON Report Released Date/Time: Dec 11, 2024 11:48 AM Reporting Lab: [address] [address] Performing Lab: [place] [id number] [place] [address] CBC/PLT ERYTHROCYT ES [#/VOLUME] IN BLOOD BY AUTOMATED COUNT 4.51 10*6/uL 4.6 - 6.2 12/11 L Specimen Type: BLOOD No comment entered. Ordering Provider: TARUN GIRON Report Released Date/Time: Dec 11, 2024 11:48 AM Reporting Lab: [address] [address] Performing Lab: [address] [address] [facility] CBC/PLT HEMOGLOBIN [MASS/VOLU ME] IN BLOOD 13.2 g/dL 14.0 - 18.0 12/11 L Specimen Type: BLOOD No comment entered. Ordering Provider: TARUN GIRON Report Released Date/Time: Dec 11, 2024 11:48 AM Reporting Lab: [address] [address] Performing Lab: [address] [place] [address] [facility] CBC/PLT HEMATOCRIT [VOLUME FRACTION] OF BLOOD BY AUTOMATED COUNT 40.5 42.0 - 52.0 12/11 L Specimen Type: BLOOD No comment entered. Ordering Provider: TARUN GIRON Report Released Date/Time: Dec 11, 2024 11:48 AM Reporting Lab: [address] [address] Performing Lab: [place] [phone] [facility] CBC/PLT MCV [ENTITIC VOLUME] BY AUTOMATED COUNT 89.8 fL 80.0 - 94.0 12/11 Specimen Type: BLOOD No comment entered. Ordering Provider: TARUN GIRON Report Released Date/Time: Dec 11, 2024 11:48 AM Reporting Lab: [address] [address] Performing Lab: [place] [phone] [facility] CBC/PLT MCH [ENTITIC MASS] BY AUTOMATED COUNT 29.3 pg 27.0 - 31.0 12/11 Specimen Type: BLOOD No comment entered. Ordering Provider: TARUN GIRON Report Released Date/Time: Dec 11, 2024 11:48 AM Reporting Lab: [address] [address] Performing Lab: [place] [phone] [facility] CBC/PLT MCHC [MASS/VOLU ME] BY AUTOMATED COUNT 32.6 g/dL 32.0 - 36.0 12/11 Specimen Type: BLOOD No comment entered. Ordering Provider: TARUN GIRON Report Released Date/Time: Dec 11, 2024 11:48 AM Reporting Lab: [address] [address] Performing Lab: [address] [address] [facility] CBC/PLT PLATELETS [#/VOLUME] IN BLOOD 241 10*3/uL 150 - 450 12/11 Specimen Type: BLOOD No comment entered. Ordering Provider: TARUN GIRON Report Released Date/Time: Dec 11, 2024 11:48 AM Reporting Lab: [place] [phone] Performing Lab: [place] [phone] [place] [address] CBC/PLT PLATELET MEAN VOLUME [ENTITIC VOLUME] IN BLOOD 10.3 fL 9.0 - 13.1 12/11 Specimen Type: BLOOD No comment entered. Ordering Provider: TARUN GIRON Report Released Date/Time: Dec 11, 2024 11:48 AM Reporting Lab: [address] [address] Performing Lab: [place] [phone] [place] [address] CBC/PLT ERYTHROCYT E DISTRIBUTI ON WIDTH [ENTITIC VOLUME] BY AUTOMATED COUNT 13.2 11.0 - 16.0 12/11 Specimen Type: BLOOD No comment entered. Ordering Provider: TARUN GIRON Report Released Date/Time: Dec 11, 2024 11:48 AM Reporting Lab: [address] [address] Performing Lab: [place] [phone] [place] [address] CBC/PLT NUCLEATED ERYTHROCYT ES/100 ERYTHROCYT ES IN BLOOD 0.0 0.0 - 0.0 12/11 Specimen Type: BLOOD No comment entered. Ordering Provider: TARUN GIRON Report Released Date/Time: Dec 11, 2024 11:48 AM Reporting Lab: [address] [address] Performing Lab: [place] [phone] [place] [address] GLYCOHEM OGLOBIN HEMOGLOBIN A1C/HEMOGL OBIN.TOTAL IN BLOOD BY HPLC 5.1 4.4 - 5.6 12/11 Specimen Type: BLOOD Comment: Prediabetes : 5.7%-6.4% Diabetes: >= 6.5% [facility] guidelines for A1c interpretat ion: Glycemic control targets are based on Shared Decision Making between clinicians and patients. Criteria used to establish an A1c target recommendat ion can be found at https://www .[place].gov/andrei lermadpati entsafety/ and include the use of result accuracy and precision(C V) of the A1c tests clinicians utilize at their own sites of practice. Values obtained from A1C measurement s can vary. For typical A1C assays, a reported value of 7.0 could actually be between 6.72 and 7.28 if measured by a reference method. A reported value of 9.0 could actually be between 8.73 and 9.27. Ref: https://ngs p.org/CAPda ta.asp. The in-house [employer] international D-100 analyzer has a historical CV <= 2%. Contact the laboratory for further performance characteris tics of this assay. Ordering Provider: TARUN GIRON Report Released Date/Time: Dec 11, 2024 11:48 AM Reporting Lab: [facility] [facility] [address] [address] Performing Lab: [facility] [address] [address] [facility] LIPID PROFILE CHOLESTERO L [MASS/VOLU ME] IN SERUM OR PLASMA 151 mg/dL 0 - 199 12/11 Specimen Type: PLASMA Comment: Estimated Glomerular Filtration Rate (eGFR) calculated using the 2020 Chronic Kidney Disease-Epi demiology (CKD-EPI) Collaborati on creatinine equation; units of measure are mL/min/1.73 m2. Results are only valid for adults (>=18 years) whose serum creatinine is in a steady state. eGFR calculation s are not valid for patients with acute kidney injury and for patients on dialysis. Creatinine- based estimates of kidney function may also be inaccurate in patients with reduced creatinine generation due to decreased muscle mass (e.g., malnutritio n, severe hypoalbumin emia, sarcopenia, chronic neuromuscul ar disease, amputations , severe heart failure or liver disease) and in patients with increased creatinine generation due to increased muscle mass (e.g., muscle builders, anabolic steroids) or increased dietary intake. As drug clearance is proportiona l to total GFR and not GFR indexed to body surface area (BSA), in individuals with a BSA substantial ly different than 1.73 m2, drug dosing should be based on the reported eGFR value de-indexed from BSA by multiplying by the individual' s BSA and dividing by 1.73. CKD is diagnosed based on abnormaliti es of kidney structure or function, present for >3 months, with implication s for health and disease. CKD is classified and staged based on cause, eGFR and albuminuria (quantified as urine albumin to creatinine ratio). An eGFR >60 mL/min/1.73 m2 in the absence of increased urine albumin excretion or structural abnormaliti es does not represent CKD. eGFR CKD Interpretat ion (mL/min/1.7 3 m2) stage >=90 G1 Normal 60-89 G2 Mild decrease 45-59 G3A Mild to moderate decrease 30-44 G3B Moderate to severe decrease 15-29 G4 Severe decrease <15 G5 Kidney failure Ordering Provider: TARUN GIRON Report Released Date/Time: Dec 11, 2024 11:48 AM Reporting Lab: [facility] [facility] [address] [address] Performing Lab: [facility] [address] [address] [facility] LIPID PROFILE TRIGLYCERI DE [MASS/VOLU ME] IN SERUM OR PLASMA 60 mg/dL 0 - 149 12/11 Specimen Type: PLASMA Comment: Estimated Glomerular Filtration Rate (eGFR) calculated using the 2020 Chronic Kidney Disease-Epi demiology (CKD-EPI) Collaborati on creatinine equation; units of measure are mL/min/1.73 m2. Results are only valid for adults (>=18 years) whose serum creatinine is in a steady state. eGFR calculation s are not valid for patients with acute kidney injury and for patients on dialysis. Creatinine- based estimates of kidney function may also be inaccurate in patients with reduced creatinine generation due to decreased muscle mass (e.g., malnutritio n, severe hypoalbumin emia, sarcopenia, chronic neuromuscul ar disease, amputations , severe heart failure or liver disease) and in patients with increased creatinine generation due to increased muscle mass (e.g., muscle builders, anabolic steroids) or increased dietary intake. As drug clearance is proportiona l to total GFR and not GFR indexed to body surface area (BSA), in individuals with a BSA substantial ly different than 1.73 m2, drug dosing should be based on the reported eGFR value de-indexed from BSA by multiplying by the individual' s BSA and dividing by 1.73. CKD is diagnosed based on abnormaliti es of kidney structure or function, present for >3 months, with implication s for health and disease. CKD is classified and staged based on cause, eGFR and albuminuria (quantified as urine albumin to creatinine ratio). An eGFR >60 mL/min/1.73 m2 in the absence of increased urine albumin excretion or structural abnormaliti es does not represent CKD. eGFR CKD Interpretat ion (mL/min/1.7 3 m2) stage >=90 G1 Normal 60-89 G2 Mild decrease 45-59 G3A Mild to moderate decrease 30-44 G3B Moderate to severe decrease 15-29 G4 Severe decrease <15 G5 Kidney failure Ordering Provider: TARUN GIRON Report Released Date/Time: Dec 11, 2024 11:48 AM Reporting Lab: [facility] [address] [address] Performing Lab: [facility] [address] [address] [facility] LIPID PROFILE CHOLESTERO L IN HDL [MASS/VOLU ME] IN SERUM OR PLASMA 72 mg/dL 40 - 69 12/11 H Specimen Type: PLASMA Comment: Estimated Glomerular Filtration Rate (eGFR) calculated using the 2020 Chronic Kidney Disease-Epi demiology (CKD-EPI) Collaborati on creatinine equation; units of measure are mL/min/1.73 m2. Results are only valid for adults (>=18 years) whose serum creatinine is in a steady state. eGFR calculation s are not valid for patients with acute kidney injury and for patients on dialysis. Creatinine- based estimates of kidney function may also be inaccurate in patients with reduced creatinine generation due to decreased muscle mass (e.g., malnutritio n, severe hypoalbumin emia, sarcopenia, chronic neuromuscul ar disease, amputations , severe heart failure or liver disease) and in patients with increased creatinine generation due to increased muscle mass (e.g., muscle builders, anabolic steroids) or increased dietary intake. As drug clearance is proportiona l to total GFR and not GFR indexed to body surface area (BSA), in individuals with a BSA substantial ly different than 1.73 m2, drug dosing should be based on the reported eGFR value de-indexed from BSA by multiplying by the individual' s BSA and dividing by 1.73. CKD is diagnosed based on abnormaliti es of kidney structure or function, present for >3 months, with implication s for health and disease. CKD is classified and staged based on cause, eGFR and albuminuria (quantified as urine albumin to creatinine ratio). An eGFR >60 mL/min/1.73 m2 in the absence of increased urine albumin excretion or structural abnormaliti es does not represent CKD. eGFR CKD Interpretat ion (mL/min/1.7 3 m2) stage >=90 G1 Normal 60-89 G2 Mild decrease 45-59 G3A Mild to moderate decrease 30-44 G3B Moderate to severe decrease 15-29 G4 Severe decrease <15 G5 Kidney failure Ordering Provider: TARUN GIRON Report Released Date/Time: Dec 11, 2024 11:48 AM Reporting Lab: [facility] [address] [address] Performing Lab: [facility] [address] [address] [facility] LIPID PROFILE CHOLESTERO L IN LDL [MASS/VOLU ME] IN SERUM OR PLASMA BY DIRECT ASSAY 70 mg/dL 0 - 100 12/11 Specimen Type: PLASMA Comment: Estimated Glomerular Filtration Rate (eGFR) calculated using the 2020 Chronic Kidney Disease-Epi demiology (CKD-EPI) Collaborati on creatinine equation; units of measure are mL/min/1.73 m2. Results are only valid for adults (>=18 years) whose serum creatinine is in a steady state. eGFR calculation s are not valid for patients with acute kidney injury and for patients on dialysis. Creatinine- based estimates of kidney function may also be inaccurate in patients with reduced creatinine generation due to decreased muscle mass (e.g., malnutritio n, severe hypoalbumin emia, sarcopenia, chronic neuromuscul ar disease, amputations , severe heart failure or liver disease) and in patients with increased creatinine generation due to increased muscle mass (e.g., muscle builders, anabolic steroids) or increased dietary intake. As drug clearance is proportiona l to total GFR and not GFR indexed to body surface area (BSA), in individuals with a BSA substantial ly different than 1.73 m2, drug dosing should be based on the reported eGFR value de-indexed from BSA by multiplying by the individual' s BSA and dividing by 1.73. CKD is diagnosed based on abnormaliti es of kidney structure or function, present for >3 months, with implication s for health and disease. CKD is classified and staged based on cause, eGFR and albuminuria (quantified as urine albumin to creatinine ratio). An eGFR >60 mL/min/1.73 m2 in the absence of increased urine albumin excretion or structural abnormaliti es does not represent CKD. eGFR CKD Interpretat ion (mL/min/1.7 3 m2) stage >=90 G1 Normal 60-89 G2 Mild decrease 45-59 G3A Mild to moderate decrease 30-44 G3B Moderate to severe decrease 15-29 G4 Severe decrease <15 G5 Kidney failure Ordering Provider: TARUN GIRON Report Released Date/Time: Dec 11, 2024 11:48 AM Reporting Lab: [facility] [address] [address] Performing Lab: [facility] [address] [address] [facility] PANEL 5 CREATININE [MASS/VOLU ME] IN SERUM OR PLASMA 0.60 mg/dL 0.72 - 1.25 12/11 L Specimen Type: PLASMA Comment: Estimated Glomerular Filtration Rate (eGFR) calculated using the 2020 Chronic Kidney Disease-Epi demiology (CKD-EPI) Collaborati on creatinine equation; units of measure are mL/min/1.73 m2. Results are only valid for adults (>=18 years) whose serum creatinine is in a steady state. eGFR calculation s are not valid for patients with acute kidney injury and for patients on dialysis. Creatinine- based estimates of kidney function may also be inaccurate in patients with reduced creatinine generation due to decreased muscle mass (e.g., malnutritio n, severe hypoalbumin emia, sarcopenia, chronic neuromuscul ar disease, amputations , severe heart failure or liver disease) and in patients with increased creatinine generation due to increased muscle mass (e.g., muscle builders, anabolic steroids) or increased dietary intake. As drug clearance is proportiona l to total GFR and not GFR indexed to body surface area (BSA), in individuals with a BSA substantial ly different than 1.73 m2, drug dosing should be based on the reported eGFR value de-indexed from BSA by multiplying by the individual' s BSA and dividing by 1.73. CKD is diagnosed based on abnormaliti es of kidney structure or function, present for >3 months, with implication s for health and disease. CKD is classified and staged based on cause, eGFR and albuminuria (quantified as urine albumin to creatinine ratio). An eGFR >60 mL/min/1.73 m2 in the absence of increased urine albumin excretion or structural abnormaliti es does not represent CKD. eGFR CKD Interpretat ion (mL/min/1.7 3 m2) stage >=90 G1 Normal 60-89 G2 Mild decrease 45-59 G3A Mild to moderate decrease 30-44 G3B Moderate to severe decrease 15-29 G4 Severe decrease <15 G5 Kidney failure Ordering Provider: TARUN GIRON Report Released Date/Time: Dec 11, 2024 11:48 AM Reporting Lab: [facility] [address] [address] Performing Lab: [facility] [address] [address] [facility] PANEL 5 UREA NITROGEN [MASS/VOLU ME] IN SERUM OR PLASMA 7 mg/dL 12/11 L Specimen Type: PLASMA Comment: Estimated Glomerular Filtration Rate (eGFR) calculated using the 2020 Chronic Kidney Disease-Epi demiology (CKD-EPI) Collaborati on creatinine equation; units of measure are mL/min/1.73 m2. Results are only valid for adults (>=18 years) whose serum creatinine is in a steady state. eGFR calculation s are not valid for patients with acute kidney injury and for patients on dialysis. Creatinine- based estimates of kidney function may also be inaccurate in patients with reduced creatinine generation due to decreased muscle mass (e.g., malnutritio n, severe hypoalbumin emia, sarcopenia, chronic neuromuscul ar disease, amputations , severe heart failure or liver disease) and in patients with increased creatinine generation due to increased muscle mass (e.g., muscle builders, anabolic steroids) or increased dietary intake. As drug clearance is proportiona l to total GFR and not GFR indexed to body surface area (BSA), in individuals with a BSA substantial ly different than 1.73 m2, drug dosing should be based on the reported eGFR value de-indexed from BSA by multiplying by the individual' s BSA and dividing by 1.73. CKD is diagnosed based on abnormaliti es of kidney structure or function, present for >3 months, with implication s for health and disease. CKD is classified and staged based on cause, eGFR and albuminuria (quantified as urine albumin to creatinine ratio). An eGFR >60 mL/min/1.73 m2 in the absence of increased urine albumin excretion or structural abnormaliti es does not represent CKD. eGFR CKD Interpretat ion (mL/min/1.7 3 m2) stage >=90 G1 Normal 60-89 G2 Mild decrease 45-59 G3A Mild to moderate decrease 30-44 G3B Moderate to severe decrease 15-29 G4 Severe decrease <15 G5 Kidney failure Ordering Provider: TARUN GIRON Report Released Date/Time: Dec 11, 2024 11:48 AM Reporting Lab: [facility] [address] [address] Performing Lab: [facility] [address] [address] [facility] PANEL 5 GLUCOSE [MASS/VOLU ME] IN SERUM OR PLASMA 83 mg/dL 74 - 100 12/11 Specimen Type: PLASMA Comment: Estimated Glomerular Filtration Rate (eGFR) calculated using the 2020 Chronic Kidney Disease-Epi demiology (CKD-EPI) Collaborati on creatinine equation; units of measure are mL/min/1.73 m2. Results are only valid for adults (>=18 years) whose serum creatinine is in a steady state. eGFR calculation s are not valid for patients with acute kidney injury and for patients on dialysis. Creatinine- based estimates of kidney function may also be inaccurate in patients with reduced creatinine generation due to decreased muscle mass (e.g., malnutritio n, severe hypoalbumin emia, sarcopenia, chronic neuromuscul ar disease, amputations , severe heart failure or liver disease) and in patients with increased creatinine generation due to increased muscle mass (e.g., muscle builders, anabolic steroids) or increased dietary intake. As drug clearance is proportiona l to total GFR and not GFR indexed to body surface area (BSA), in individuals with a BSA substantial ly different than 1.73 m2, drug dosing should be based on the reported eGFR value de-indexed from BSA by multiplying by the individual' s BSA and dividing by 1.73. CKD is diagnosed based on abnormaliti es of kidney structure or function, present for >3 months, with implication s for health and disease. CKD is classified and staged based on cause, eGFR and albuminuria (quantified as urine albumin to creatinine ratio). An eGFR >60 mL/min/1.73 m2 in the absence of increased urine albumin excretion or structural abnormaliti es does not represent CKD. eGFR CKD Interpretat ion (mL/min/1.7 3 m2) stage >=90 G1 Normal 60-89 G2 Mild decrease 45-59 G3A Mild to moderate decrease 30-44 G3B Moderate to severe decrease 15-29 G4 Severe decrease <15 G5 Kidney failure Ordering Provider: TARUN IGRON Report Released Date/Time: Dec 11, 2024 11:48 AM Reporting Lab: [facility] [address] [facility] [address] Performing Lab: [facility] [address] [facility] [address] [facility] PANEL 5 SODIUM [MOLES/VOL UME] IN SERUM OR PLASMA 131 mmol/L 136 - 145 12/11 L Specimen Type: PLASMA Comment: Estimated Glomerular Filtration Rate (eGFR) calculated using the 2020 Chronic Kidney Disease-Epi demiology (CKD-EPI) Collaborati on creatinine equation; units of measure are mL/min/1.73 m2. Results are only valid for adults (>=18 years) whose serum creatinine is in a steady state. eGFR calculation s are not valid for patients with acute kidney injury and for patients on dialysis. Creatinine- based estimates of kidney function may also be inaccurate in patients with reduced creatinine generation due to decreased muscle mass (e.g., malnutritio n, severe hypoalbumin emia, sarcopenia, chronic neuromuscul ar disease, amputations , severe heart failure or liver disease) and in patients with increased creatinine generation due to increased muscle mass (e.g., muscle builders, anabolic steroids) or increased dietary intake. As drug clearance is proportiona l to total GFR and not GFR indexed to body surface area (BSA), in individuals with a BSA substantial ly different than 1.73 m2, drug dosing should be based on the reported eGFR value de-indexed from BSA by multiplying by the individual' s BSA and dividing by 1.73. CKD is diagnosed based on abnormaliti es of kidney structure or function, present for >3 months, with implication s for health and disease. CKD is classified and staged based on cause, eGFR and albuminuria (quantified as urine albumin to creatinine ratio). An eGFR >60 mL/min/1.73 m2 in the absence of increased urine albumin excretion or structural abnormaliti es does not represent CKD. eGFR CKD Interpretat ion (mL/min/1.7 3 m2) stage >=90 G1 Normal 60-89 G2 Mild decrease 45-59 G3A Mild to moderate decrease 30-44 G3B Moderate to severe decrease 15-29 G4 Severe decrease <15 G5 Kidney failure Ordering Provider: TARUN GIRON Report Released Date/Time: Dec 11, 2024 11:48 AM Reporting Lab: [facility] [address] [address] Performing Lab: [facility] [address] [address] [facility] PANEL 5 POTASSIUM [MOLES/VOL UME] IN SERUM OR PLASMA 4.6 mmol/L 3.5 - 5.1 12/11 Specimen Type: PLASMA Comment: Estimated Glomerular Filtration Rate (eGFR) calculated using the 2020 Chronic Kidney Disease-Epi demiology (CKD-EPI) Collaborati on creatinine equation; units of measure are mL/min/1.73 m2. Results are only valid for adults (>=18 years) whose serum creatinine is in a steady state. eGFR calculation s are not valid for patients with acute kidney injury and for patients on dialysis. Creatinine- based estimates of kidney function may also be inaccurate in patients with reduced creatinine generation due to decreased muscle mass (e.g., malnutritio n, severe hypoalbumin emia, sarcopenia, chronic neuromuscul ar disease, amputations , severe heart failure or liver disease) and in patients with increased creatinine generation due to increased muscle mass (e.g., muscle builders, anabolic steroids) or increased dietary intake. As drug clearance is proportiona l to total GFR and not GFR indexed to body surface area (BSA), in individuals with a BSA substantial ly different than 1.73 m2, drug dosing should be based on the reported eGFR value de-indexed from BSA by multiplying by the individual' s BSA and dividing by 1.73. CKD is diagnosed based on abnormaliti es of kidney structure or function, present for >3 months, with implication s for health and disease. CKD is classified and staged based on cause, eGFR and albuminuria (quantified as urine albumin to creatinine ratio). An eGFR >60 mL/min/1.73 m2 in the absence of increased urine albumin excretion or structural abnormaliti es does not represent CKD. eGFR CKD Interpretat ion (mL/min/1.7 3 m2) stage >=90 G1 Normal 60-89 G2 Mild decrease 45-59 G3A Mild to moderate decrease 30-44 G3B Moderate to severe decrease 15-29 G4 Severe decrease <15 G5 Kidney failure Ordering Provider: TARUN GIRON Report Released Date/Time: Dec 11, 2024 11:48 AM Reporting Lab: [address] [address] Performing Lab: [address] [address] [facility] PANEL 5 CHLORIDE [MOLES/VOL UME] IN SERUM OR PLASMA 95 mmol/L 98 - 107 12/11 L Specimen Type: PLASMA Comment: Estimated Glomerular Filtration Rate (eGFR) calculated using the 2020 Chronic Kidney Disease-Epi demiology (CKD-EPI) Collaborati on creatinine equation; units of measure are mL/min/1.73 m2. Results are only valid for adults (>=18 years) whose serum creatinine is in a steady state. eGFR calculation s are not valid for patients with acute kidney injury and for patients on dialysis. Creatinine- based estimates of kidney function may also be inaccurate in patients with reduced creatinine generation due to decreased muscle mass (e.g., malnutritio n, severe hypoalbumin emia, sarcopenia, chronic neuromuscul ar disease, amputations , severe heart failure or liver disease) and in patients with increased creatinine generation due to increased muscle mass (e.g., muscle builders, anabolic steroids) or increased dietary intake. As drug clearance is proportiona l to total GFR and not GFR indexed to body surface area (BSA), in individuals with a BSA substantial ly different than 1.73 m2, drug dosing should be based on the reported eGFR value de-indexed from BSA by multiplying by the individual' s BSA and dividing by 1.73. CKD is diagnosed based on abnormaliti es of kidney structure or function, present for >3 months, with implication s for health and disease. CKD is classified and staged based on cause, eGFR and albuminuria (quantified as urine albumin to creatinine ratio). An eGFR >60 mL/min/1.73 m2 in the absence of increased urine albumin excretion or structural abnormaliti es does not represent CKD. eGFR CKD Interpretat ion (mL/min/1.7 3 m2) stage >=90 G1 Normal 60-89 G2 Mild decrease 45-59 G3A Mild to moderate decrease 30-44 G3B Moderate to severe decrease 15-29 G4 Severe decrease <15 G5 Kidney failure Ordering Provider: TARUN GIRON Report Released Date/Time: Dec 11, 2024 11:48 AM Reporting Lab: [address] [phone] Performing Lab: [address] [address] [facility] PANEL 5 CARBON DIOXIDE, TOTAL [MOLES/VOL UME] IN SERUM OR PLASMA 28 mmol/L 22 - 12/11 Specimen Type: PLASMA Comment: Estimated Glomerular Filtration Rate (eGFR) calculated using the 2020 Chronic Kidney Disease-Epi demiology (CKD-EPI) Collaborati on creatinine equation; units of measure are mL/min/1.73 m2. Results are only valid for adults (>=18 years) whose serum creatinine is in a steady state. eGFR calculation s are not valid for patients with acute kidney injury and for patients on dialysis. Creatinine- based estimates of kidney function may also be inaccurate in patients with reduced creatinine generation due to decreased muscle mass (e.g., malnutritio n, severe hypoalbumin emia, sarcopenia, chronic neuromuscul ar disease, amputations , severe heart failure or liver disease) and in patients with increased creatinine generation due to increased muscle mass (e.g., muscle builders, anabolic steroids) or increased dietary intake. As drug clearance is proportiona l to total GFR and not GFR indexed to body surface area (BSA), in individuals with a BSA substantial ly different than 1.73 m2, drug dosing should be based on the reported eGFR value de-indexed from BSA by multiplying by the individual' s BSA and dividing by 1.73. CKD is diagnosed based on abnormaliti es of kidney structure or function, present for >3 months, with implication s for health and disease. CKD is classified and staged based on cause, eGFR and albuminuria (quantified as urine albumin to creatinine ratio). An eGFR >60 mL/min/1.73 m2 in the absence of increased urine albumin excretion or structural abnormaliti es does not represent CKD. eGFR CKD Interpretat ion (mL/min/1.7 3 m2) stage >=90 G1 Normal 60-89 G2 Mild decrease 45-59 G3A Mild to moderate decrease 30-44 G3B Moderate to severe decrease 15-29 G4 Severe decrease <15 G5 Kidney failure Ordering Provider: TARUN GIRON Report Released Date/Time: Dec 11, 2024 11:48 AM Reporting Lab: [facility] [address] [address] Performing Lab: [facility] [address] [address] [facility] PANEL 5 CALCIUM [MASS/VOLU ME] IN SERUM OR PLASMA 9.0 mg/dL 8.4 - 10.2 12/11 Specimen Type: PLASMA Comment: Estimated Glomerular Filtration Rate (eGFR) calculated using the 2020 Chronic Kidney Disease-Epi demiology (CKD-EPI) Collaborati on creatinine equation; units of measure are mL/min/1.73 m2. Results are only valid for adults (>=18 years) whose serum creatinine is in a steady state. eGFR calculation s are not valid for patients with acute kidney injury and for patients on dialysis. Creatinine- based estimates of kidney function may also be inaccurate in patients with reduced creatinine generation due to decreased muscle mass (e.g., malnutritio n, severe hypoalbumin emia, sarcopenia, chronic neuromuscul ar disease, amputations , severe heart failure or liver disease) and in patients with increased creatinine generation due to increased muscle mass (e.g., muscle builders, anabolic steroids) or increased dietary intake. As drug clearance is proportiona l to total GFR and not GFR indexed to body surface area (BSA), in individuals with a BSA substantial ly different than 1.73 m2, drug dosing should be based on the reported eGFR value de-indexed from BSA by multiplying by the individual' s BSA and dividing by 1.73. CKD is diagnosed based on abnormaliti es of kidney structure or function, present for >3 months, with implication s for health and disease. CKD is classified and staged based on cause, eGFR and albuminuria (quantified as urine albumin to creatinine ratio). An eGFR >60 mL/min/1.73 m2 in the absence of increased urine albumin excretion or structural abnormaliti es does not represent CKD. eGFR CKD Interpretat ion (mL/min/1.7 3 m2) stage >=90 G1 Normal 60-89 G2 Mild decrease 45-59 G3A Mild to moderate decrease 30-44 G3B Moderate to severe decrease 15-29 G4 Severe decrease <15 G5 Kidney failure Ordering Provider: TARUN GIRON Report Released Date/Time: Dec 11, 2024 11:48 AM Reporting Lab: [facility] [address] [phone] Performing Lab: [facility] [address] [phone] [facility] PANEL 5 PROTEIN [MASS/VOLU ME] IN SERUM OR PLASMA 7.0 g/dL 6.4 - 8.3 12/11 Specimen Type: PLASMA Comment: Estimated Glomerular Filtration Rate (eGFR) calculated using the 2020 Chronic Kidney Disease-Epi demiology (CKD-EPI) Collaborati on creatinine equation; units of measure are mL/min/1.73 m2. Results are only valid for adults (>=18 years) whose serum creatinine is in a steady state. eGFR calculation s are not valid for patients with acute kidney injury and for patients on dialysis. Creatinine- based estimates of kidney function may also be inaccurate in patients with reduced creatinine generation due to decreased muscle mass (e.g., malnutritio n, severe hypoalbumin emia, sarcopenia, chronic neuromuscul ar disease, amputations , severe heart failure or liver disease) and in patients with increased creatinine generation due to increased muscle mass (e.g., muscle builders, anabolic steroids) or increased dietary intake. As drug clearance is proportiona l to total GFR and not GFR indexed to body surface area (BSA), in individuals with a BSA substantial ly different than 1.73 m2, drug dosing should be based on the reported eGFR value de-indexed from BSA by multiplying by the individual' s BSA and dividing by 1.73. CKD is diagnosed based on abnormaliti es of kidney structure or function, present for >3 months, with implication s for health and disease. CKD is classified and staged based on cause, eGFR and albuminuria (quantified as urine albumin to creatinine ratio). An eGFR >60 mL/min/1.73 m2 in the absence of increased urine albumin excretion or structural abnormaliti es does not represent CKD. eGFR CKD Interpretat ion (mL/min/1.7 3 m2) stage >=90 G1 Normal 60-89 G2 Mild decrease 45-59 G3A Mild to moderate decrease 30-44 G3B Moderate to severe decrease 15-29 G4 Severe decrease <15 G5 Kidney failure Ordering Provider: TARUN GIRON Report Released Date/Time: Dec 11, 2024 11:48 AM Reporting Lab: [facility] [address] [address] Performing Lab: EL[facility] [address] [address] [facility] PANEL 5 ALBUMIN [MASS/VOLU ME] IN SERUM OR PLASMA 3.8 g/dL 3.5 - 5.2 12/11 Specimen Type: PLASMA Comment: Estimated Glomerular Filtration Rate (eGFR) calculated using the 2020 Chronic Kidney Disease-Epi demiology (CKD-EPI) Collaborati on creatinine equation; units of measure are mL/min/1.73 m2. Results are only valid for adults (>=18 years) whose serum creatinine is in a steady state. eGFR calculation s are not valid for patients with acute kidney injury and for patients on dialysis. Creatinine- based estimates of kidney function may also be inaccurate in patients with reduced creatinine generation due to decreased muscle mass (e.g., malnutritio n, severe hypoalbumin emia, sarcopenia, chronic neuromuscul ar disease, amputations , severe heart failure or liver disease) and in patients with increased creatinine generation due to increased muscle mass (e.g., muscle builders, anabolic steroids) or increased dietary intake. As drug clearance is proportiona l to total GFR and not GFR indexed to body surface area (BSA), in individuals with a BSA substantial ly different than 1.73 m2, drug dosing should be based on the reported eGFR value de-indexed from BSA by multiplying by the individual' s BSA and dividing by 1.73. CKD is diagnosed based on abnormaliti es of kidney structure or function, present for >3 months, with implication s for health and disease. CKD is classified and staged based on cause, eGFR and albuminuria (quantified as urine albumin to creatinine ratio). An eGFR >60 mL/min/1.73 m2 in the absence of increased urine albumin excretion or structural abnormaliti es does not represent CKD. eGFR CKD Interpretat ion (mL/min/1.7 3 m2) stage >=90 G1 Normal 60-89 G2 Mild decrease 45-59 G3A Mild to moderate decrease 30-44 G3B Moderate to severe decrease 15-29 G4 Severe decrease <15 G5 Kidney failure Ordering Provider: TARUN GIRON Report Released Date/Time: Dec 11, 2024 11:48 AM Reporting Lab: [facility] [address] [address] Performing Lab: [facility] [address] [address] [facility] PANEL 5 BILIRUBIN. TOTAL [MASS/VOLU ME] IN SERUM OR PLASMA 0.6 mg/dL 0.2 - 1.2 12/11 Specimen Type: PLASMA Comment: Estimated Glomerular Filtration Rate (eGFR) calculated using the 2020 Chronic Kidney Disease-Epi demiology (CKD-EPI) Collaborati on creatinine equation; units of measure are mL/min/1.73 m2. Results are only valid for adults (>=18 years) whose serum creatinine is in a steady state. eGFR calculation s are not valid for patients with acute kidney injury and for patients on dialysis. Creatinine- based estimates of kidney function may also be inaccurate in patients with reduced creatinine generation due to decreased muscle mass (e.g., malnutritio n, severe hypoalbumin emia, sarcopenia, chronic neuromuscul ar disease, amputations , severe heart failure or liver disease) and in patients with increased creatinine generation due to increased muscle mass (e.g., muscle builders, anabolic steroids) or increased dietary intake. As drug clearance is proportiona l to total GFR and not GFR indexed to body surface area (BSA), in individuals with a BSA substantial ly different than 1.73 m2, drug dosing should be based on the reported eGFR value de-indexed from BSA by multiplying by the individual' s BSA and dividing by 1.73. CKD is diagnosed based on abnormaliti es of kidney structure or function, present for >3 months, with implication s for health and disease. CKD is classified and staged based on cause, eGFR and albuminuria (quantified as urine albumin to creatinine ratio). An eGFR >60 mL/min/1.73 m2 in the absence of increased urine albumin excretion or structural abnormaliti es does not represent CKD. eGFR CKD Interpretat ion (mL/min/1.7 3 m2) stage >=90 G1 Normal 60-89 G2 Mild decrease 45-59 G3A Mild to moderate decrease 30-44 G3B Moderate to severe decrease 15-29 G4 Severe decrease <15 G5 Kidney failure Ordering Provider: TARUN GIRON Report Released Date/Time: Dec 11, 2024 11:48 AM Reporting Lab: [facility] [address] [address] Performing Lab: [facility] [address] [address] [facility] PANEL 5 ASPARTATE AMINOTRANS FERASE [ENZYMATIC ACTIVITY/V OLUME] IN SERUM OR PLASMA 21 U/L 5 - 34 12/11 Specimen Type: PLASMA Comment: Estimated Glomerular Filtration Rate (eGFR) calculated using the 2020 Chronic Kidney Disease-Epi demiology (CKD-EPI) Collaborati on creatinine equation; units of measure are mL/min/1.73 m2. Results are only valid for adults (>=18 years) whose serum creatinine is in a steady state. eGFR calculation s are not valid for patients with acute kidney injury and for patients on dialysis. Creatinine- based estimates of kidney function may also be inaccurate in patients with reduced creatinine generation due to decreased muscle mass (e.g., malnutritio n, severe hypoalbumin emia, sarcopenia, chronic neuromuscul ar disease, amputations , severe heart failure or liver disease) and in patients with increased creatinine generation due to increased muscle mass (e.g., muscle builders, anabolic steroids) or increased dietary intake. As drug clearance is proportiona l to total GFR and not GFR indexed to body surface area (BSA), in individuals with a BSA substantial ly different than 1.73 m2, drug dosing should be based on the reported eGFR value de-indexed from BSA by multiplying by the individual' s BSA and dividing by 1.73. CKD is diagnosed based on abnormaliti es of kidney structure or function, present for >3 months, with implication s for health and disease. CKD is classified and staged based on cause, eGFR and albuminuria (quantified as urine albumin to creatinine ratio). An eGFR >60 mL/min/1.73 m2 in the absence of increased urine albumin excretion or structural abnormaliti es does not represent CKD. eGFR CKD Interpretat ion (mL/min/1.7 3 m2) stage >=90 G1 Normal 60-89 G2 Mild decrease 45-59 G3A Mild to moderate decrease 30-44 G3B Moderate to severe decrease 15-29 G4 Severe decrease <15 G5 Kidney failure Ordering Provider: TARUN GIRON Report Released Date/Time: Dec 11, 2024 11:48 AM Reporting Lab: [facility] [address] [address] Performing Lab: [facility] [address] [address] [facility] PANEL 5 ALANINE AMINOTRANS FERASE [ENZYMATIC ACTIVITY/V OLUME] IN SERUM OR PLASMA 10 U/L 0 - 55 12/11 Specimen Type: PLASMA Comment: Estimated Glomerular Filtration Rate (eGFR) calculated using the 2020 Chronic Kidney Disease-Epi demiology (CKD-EPI) Collaborati on creatinine equation; units of measure are mL/min/1.73 m2. Results are only valid for adults (>=18 years) whose serum creatinine is in a steady state. eGFR calculation s are not valid for patients with acute kidney injury and for patients on dialysis. Creatinine- based estimates of kidney function may also be inaccurate in patients with reduced creatinine generation due to decreased muscle mass (e.g., malnutritio n, severe hypoalbumin emia, sarcopenia, chronic neuromuscul ar disease, amputations , severe heart failure or liver disease) and in patients with increased creatinine generation due to increased muscle mass (e.g., muscle builders, anabolic steroids) or increased dietary intake. As drug clearance is proportiona l to total GFR and not GFR indexed to body surface area (BSA), in individuals with a BSA substantial ly different than 1.73 m2, drug dosing should be based on the reported eGFR value de-indexed from BSA by multiplying by the individual' s BSA and dividing by 1.73. CKD is diagnosed based on abnormaliti es of kidney structure or function, present for >3 months, with implication s for health and disease. CKD is classified and staged based on cause, eGFR and albuminuria (quantified as urine albumin to creatinine ratio). An eGFR >60 mL/min/1.73 m2 in the absence of increased urine albumin excretion or structural abnormaliti es does not represent CKD. eGFR CKD Interpretat ion (mL/min/1.7 3 m2) stage >=90 G1 Normal 60-89 G2 Mild decrease 45-59 G3A Mild to moderate decrease 30-44 G3B Moderate to severe decrease 15-29 G4 Severe decrease <15 G5 Kidney failure Ordering Provider: TARUN GIRON Report Released Date/Time: Dec 11, 2024 11:48 AM Reporting Lab: [facility] [address] [address] Performing Lab: [facility] [address] [address] [facility] PANEL 5 ANION GAP 3 IN SERUM OR PLASMA 8 meq/L 3 - 19 12/11 Specimen Type: PLASMA Comment: Estimated Glomerular Filtration Rate (eGFR) calculated using the 2020 Chronic Kidney Disease-Epi demiology (CKD-EPI) Collaborati on creatinine equation; units of measure are mL/min/1.73 m2. Results are only valid for adults (>=18 years) whose serum creatinine is in a steady state. eGFR calculation s are not valid for patients with acute kidney injury and for patients on dialysis. Creatinine- based estimates of kidney function may also be inaccurate in patients with reduced creatinine generation due to decreased muscle mass (e.g., malnutritio n, severe hypoalbumin emia, sarcopenia, chronic neuromuscul ar disease, amputations , severe heart failure or liver disease) and in patients with increased creatinine generation due to increased muscle mass (e.g., muscle builders, anabolic steroids) or increased dietary intake. As drug clearance is proportiona l to total GFR and not GFR indexed to body surface area (BSA), in individuals with a BSA substantial ly different than 1.73 m2, drug dosing should be based on the reported eGFR value de-indexed from BSA by multiplying by the individual' s BSA and dividing by 1.73. CKD is diagnosed based on abnormaliti es of kidney structure or function, present for >3 months, with implication s for health and disease. CKD is classified and staged based on cause, eGFR and albuminuria (quantified as urine albumin to creatinine ratio). An eGFR >60 mL/min/1.73 m2 in the absence of increased urine albumin excretion or structural abnormaliti es does not represent CKD. eGFR CKD Interpretat ion (mL/min/1.7 3 m2) stage >=90 G1 Normal 60-89 G2 Mild decrease 45-59 G3A Mild to moderate decrease 30-44 G3B Moderate to severe decrease 15-29 G4 Severe decrease <15 G5 Kidney failure Ordering Provider: TARUN GIRON Report Released Date/Time: Dec 11, 2024 11:48 AM Reporting Lab: [facility] [address] [phone] Performing Lab: [facility] [address] [address] [facility] PANEL 5 ALKALINE PHOSPHATAS E [ENZYMATIC ACTIVITY/V OLUME] IN SERUM OR PLASMA 64 U/L 40 - 150 12/11 Specimen Type: PLASMA Comment: Estimated Glomerular Filtration Rate (eGFR) calculated using the 2020 Chronic Kidney Disease-Epi demiology (CKD-EPI) Collaborati on creatinine equation; units of measure are mL/min/1.73 m2. Results are only valid for adults (>=18 years) whose serum creatinine is in a steady state. eGFR calculation s are not valid for patients with acute kidney injury and for patients on dialysis. Creatinine- based estimates of kidney function may also be inaccurate in patients with reduced creatinine generation due to decreased muscle mass (e.g., malnutritio n, severe hypoalbumin emia, sarcopenia, chronic neuromuscul ar disease, amputations , severe heart failure or liver disease) and in patients with increased creatinine generation due to increased muscle mass (e.g., muscle builders, anabolic steroids) or increased dietary intake. As drug clearance is proportiona l to total GFR and not GFR indexed to body surface area (BSA), in individuals with a BSA substantial ly different than 1.73 m2, drug dosing should be based on the reported eGFR value de-indexed from BSA by multiplying by the individual' s BSA and dividing by 1.73. CKD is diagnosed based on abnormaliti es of kidney structure or function, present for >3 months, with implication s for health and disease. CKD is classified and staged based on cause, eGFR and albuminuria (quantified as urine albumin to creatinine ratio). An eGFR >60 mL/min/1.73 m2 in the absence of increased urine albumin excretion or structural abnormaliti es does not represent CKD. eGFR CKD Interpretat ion (mL/min/1.7 3 m2) stage >=90 G1 Normal 60-89 G2 Mild decrease 45-59 G3A Mild to moderate decrease 30-44 G3B Moderate to severe decrease 15-29 G4 Severe decrease <15 G5 Kidney failure Ordering Provider: TARUN GIRON Report Released Date/Time: Dec 11, 2024 11:48 AM Reporting Lab: [facility] [address] [facility] [address] Performing Lab: ELIER KIMI [facility] [address] [facility] [address] [facility] PANEL 5 GLOMERULAR FILTRATION RATE/1.73 SQ M.PREDICTE D [VOLUME RATE/AREA] IN SERUM, PLASMA OR BLOOD BY CREATININE -BASED FORMULA (CKD-EPI 2020) >90 12/11 Specimen Type: PLASMA Comment: Estimated Glomerular Filtration Rate (eGFR) calculated using the 2020 Chronic Kidney Disease-Epi demiology (CKD-EPI) Collaborati on creatinine equation; units of measure are mL/min/1.73 m2. Results are only valid for adults (>=18 years) whose serum creatinine is in a steady state. eGFR calculation s are not valid for patients with acute kidney injury and for patients on dialysis. Creatinine- based estimates of kidney function may also be inaccurate in patients with reduced creatinine generation due to decreased muscle mass (e.g., malnutritio n, severe hypoalbumin emia, sarcopenia, chronic neuromuscul ar disease, amputations , severe heart failure or liver disease) and in patients with increased creatinine generation due to increased muscle mass (e.g., muscle builders, anabolic steroids) or increased dietary intake. As drug clearance is proportiona l to total GFR and not GFR indexed to body surface area (BSA), in individuals with a BSA substantial ly different than 1.73 m2, drug dosing should be based on the reported eGFR value de-indexed from BSA by multiplying by the individual' s BSA and dividing by 1.73. CKD is diagnosed based on abnormaliti es of kidney structure or function, present for >3 months, with implication s for health and disease. CKD is classified and staged based on cause, eGFR and albuminuria (quantified as urine albumin to creatinine ratio). An eGFR >60 mL/min/1.73 m2 in the absence of increased urine albumin excretion or structural abnormaliti es does not represent CKD. eGFR CKD Interpretat ion (mL/min/1.7 3 m2) stage >=90 G1 Normal 60-89 G2 Mild decrease 45-59 G3A Mild to moderate decrease 30-44 G3B Moderate to severe decrease 15-29 G4 Severe decrease <15 G5 Kidney failure Ordering Provider: TARUN GIRON Report Released Date/Time: Dec 11, 2024 11:48 AM Reporting Lab: [place] [phone] Performing Lab: [address] CBC/PLT LEUKOCYTES [#/VOLUME] IN BLOOD BY AUTOMATED COUNT 8.4 10*3/uL 5.0 - 10.0 05/24 Specimen Type: BLOOD No comment entered. Ordering Provider: TARUN GIRON Report Released Date/Time: May 03, 2024 09:16 AM Reporting Lab: [place] [address] Performing Lab: [address] CBC/PLT ERYTHROCYT ES [#/VOLUME] IN BLOOD BY AUTOMATED COUNT 4.27 10*6/uL 4.6 - 6.2 05/24 L Specimen Type: BLOOD No comment entered. Ordering Provider: TARUN GIRON Report Released Date/Time: May 03, 2024 09:16 AM Reporting Lab: [place] [address] Performing Lab: [address] CBC/PLT HEMOGLOBIN [MASS/VOLU ME] IN BLOOD 12.7 g/dL 14.0 - 18.0 05/24 L Specimen Type: BLOOD No comment entered. Ordering Provider: TARUN GIRON Report Released Date/Time: May 03, 2024 09:16 AM Reporting Lab: [place] [id number] Performing Lab: [address] CBC/PLT HEMATOCRIT [VOLUME FRACTION] OF BLOOD BY AUTOMATED COUNT 39.1 42.0 - 52.0 05/24 L Specimen Type: BLOOD No comment entered. Ordering Provider: TARUN GIRON Report Released Date/Time: May 03, 2024 09:16 AM Reporting Lab: [address] [address] Performing Lab: [address] [phone] [place] [address] CBC/PLT MCV [ENTITIC VOLUME] BY AUTOMATED COUNT 91.6 fL 80.0 - 94.0 05/24 Specimen Type: BLOOD No comment entered. Ordering Provider: TARUN GIRON Report Released Date/Time: May 03, 2024 09:16 AM Reporting Lab: [address] [address] Performing Lab: [place] [phone] [place] [address] CBC/PLT MCH [ENTITIC MASS] BY AUTOMATED COUNT 29.7 pg 27.0 - 31.0 05/24 Specimen Type: BLOOD No comment entered. Ordering Provider: TARUN GIRON Report Released Date/Time: May 03, 2024 09:16 AM Reporting Lab: [address] [address] Performing Lab: [address] [address] [facility] CBC/PLT MCHC [MASS/VOLU ME] BY AUTOMATED COUNT 32.5 g/dL 32.0 - 36.0 05/24 Specimen Type: BLOOD No comment entered. Ordering Provider: TARUN GIRON Report Released Date/Time: May 03, 2024 09:16 AM Reporting Lab: [address] [address] Performing Lab: [address] [address] [facility] CBC/PLT PLATELETS [#/VOLUME] IN BLOOD 238 10*3/uL 150 - 450 05/24 Specimen Type: BLOOD No comment entered. Ordering Provider: TARUN GIRON Report Released Date/Time: May 03, 2024 09:16 AM Reporting Lab: [address] [address] Performing Lab: [address] [address] [facility] CBC/PLT PLATELET MEAN VOLUME [ENTITIC VOLUME] IN BLOOD 9.2 fL 9.0 - 13.1 05/24 Specimen Type: BLOOD No comment entered. Ordering Provider: TARUN GIRON Report Released Date/Time: May 03, 2024 09:16 AM Reporting Lab: [address] [address] Performing Lab: [address] [address] [facility] CBC/PLT ERYTHROCYT E DISTRIBUTI ON WIDTH [ENTITIC VOLUME] BY AUTOMATED COUNT 15.1 11.0 - 16.0 05/24 Specimen Type: BLOOD No comment entered. Ordering Provider: TARUN GIRON Report Released Date/Time: May 03, 2024 09:16 AM Reporting Lab: [address] [address] Performing Lab: [place] [phone] [facility] CBC/PLT NUCLEATED ERYTHROCYT ES/100 ERYTHROCYT ES IN BLOOD 0.0 0.0 - 0.0 05/24 Specimen Type: BLOOD No comment entered. Ordering Provider: TARUN GIRON Report Released Date/Time: May 03, 2024 09:16 AM Reporting Lab: [address] [address] Performing Lab: [place] [phone] [facility] ANTI-CCP (SRL) CYCLIC CITRULLINA ADRIENNE PEPTIDE AB [UNITS/VOL UME] IN SERUM BY IMMUNOASSA Y <0.5 0.5 - 2.9 04/27 Specimen Type: SERUM No comment entered. Ordering Provider: CATERINA ALCALA Report Released Date/Time: Apr 27, 2024 10:20 AM Reporting Lab: [address] [address] Performing Lab: [address] [address] [facility] ANTI-NUC LEAR Ab NUCLEAR AB [TITER] IN SERUM BY HEP2 SUBSTRATE <1:80 <1:80 - 180 04/27 Specimen Type: SERUM No comment entered. Ordering Provider: CATERINA ALCALA Report Released Date/Time: Apr 27, 2024 10:20 AM Reporting Lab[facility] [address] [facility] [address] Performing Lab: [facility] [address] [facility] [address] [facility] eGFR + CREATINI NE CREATININE [MASS/VOLU ME] IN SERUM OR PLASMA 0.56 mg/dL 0.72 - 1.25 04/27 L Specimen Type: PLASMA Comment: Estimated Glomerular Filtration Rate (eGFR) calculated using the 2020 Chronic Kidney Disease-Epi demiology (CKD-EPI) Collaborati on creatinine equation; units of measure are mL/min/1.73 m2. Results are only valid for adults (>=18 years) whose serum creatinine is in a steady state. eGFR calculation s are not valid for patients with acute kidney injury and for patients on dialysis. Creatinine- based estimates of kidney function may also be inaccurate in patients with reduced creatinine generation due to decreased muscle mass (e.g., malnutritio n, severe hypoalbumin emia, sarcopenia, chronic neuromuscul ar disease, amputations , severe heart failure or liver disease) and in patients with increased creatinine generation due to increased muscle mass (e.g., muscle builders, anabolic steroids) or increased dietary intake. As drug clearance is proportiona l to total GFR and not GFR indexed to body surface area (BSA), in individuals with a BSA substantial ly different than 1.73 m2, drug dosing should be based on the reported eGFR value de-indexed from BSA by multiplying by the individual' s BSA and dividing by 1.73. CKD is diagnosed based on abnormaliti es of kidney structure or function, present for >3 months, with implication s for health and disease. CKD is classified and staged based on cause, eGFR and albuminuria (quantified as urine albumin to creatinine ratio). An eGFR >60 mL/min/1.73 m2 in the absence of increased urine albumin excretion or structural abnormaliti es does not represent CKD. eGFR CKD Interpretat ion (mL/min/1.7 3 m2) stage >=90 G1 Normal 60-89 G2 Mild decrease 45-59 G3A Mild to moderate decrease 30-44 G3B Moderate to severe decrease 15-29 G4 Severe decrease <15 G5 Kidney failure Ordering Provider: EZRA GREGORY Report Released Date/Time: Mar 28, 2024 06:29 PM Reporting Lab: [facility] [address] [facility] [address] Performing Lab: [facility] [address] [place] [address] [facility] eGFR + CREATINI NE GLOMERULAR FILTRATION RATE/1.73 SQ M.PREDICTE D [VOLUME RATE/AREA] IN SERUM, PLASMA OR BLOOD BY CREATININE -BASED FORMULA (CKD-EPI 2020) >90 04/27 Specimen Type: PLASMA Comment: Estimated Glomerular Filtration Rate (eGFR) calculated using the 2020 Chronic Kidney Disease-Epi demiology (CKD-EPI) Collaborati on creatinine equation; units of measure are mL/min/1.73 m2. Results are only valid for adults (>=18 years) whose serum creatinine is in a steady state. eGFR calculation s are not valid for patients with acute kidney injury and for patients on dialysis. Creatinine- based estimates of kidney function may also be inaccurate in patients with reduced creatinine generation due to decreased muscle mass (e.g., malnutritio n, severe hypoalbumin emia, sarcopenia, chronic neuromuscul ar disease, amputations , severe heart failure or liver disease) and in patients with increased creatinine generation due to increased muscle mass (e.g., muscle builders, anabolic steroids) or increased dietary intake. As drug clearance is proportiona l to total GFR and not GFR indexed to body surface area (BSA), in individuals with a BSA substantial ly different than 1.73 m2, drug dosing should be based on the reported eGFR value de-indexed from BSA by multiplying by the individual' s BSA and dividing by 1.73. CKD is diagnosed based on abnormaliti es of kidney structure or function, present for >3 months, with implication s for health and disease. CKD is classified and staged based on cause, eGFR and albuminuria (quantified as urine albumin to creatinine ratio). An eGFR >60 mL/min/1.73 m2 in the absence of increased urine albumin excretion or structural abnormaliti es does not represent CKD. eGFR CKD Interpretat ion (mL/min/1.7 3 m2) stage >=90 G1 Normal 60-89 G2 Mild decrease 45-59 G3A Mild to moderate decrease 30-44 G3B Moderate to severe decrease 15-29 G4 Severe decrease <15 G5 Kidney failure Ordering Provider: EZRA GREGORY Report Released Date/Time: Mar 28, 2024 06:29 PM Reporting Lab: [place] [phone] Performing Lab: [place] [phone] [place] [address] FLORI SCREEN EXTRACTABL E NUCLEAR AB [PRESENCE] IN SERUM Negative 04/27 Specimen Type: SERUM No comment entered. Ordering Provider: CATERINA ALCALA Report Released Date/Time: Apr 27, 2024 10:20 AM Reporting Lab: [address] [address] Performing Lab: [place] [phone] [place] [address] RHEUMATO ID FACTOR RHEUMATOID FACTOR [UNITS/VOL UME] IN SERUM OR PLASMA <8 NEGATIVE [IU]/mL <8 NEGATIVE - 8 04/27 Specimen Type: SERUM No comment entered. Ordering Provider: CATERINA ALCALA Report Released Date/Time: Apr 27, 2024 10:20 AM Reporting Lab: [address] [address] Performing Lab: [place] [phone] [place] [address] Vital Signs Combined list of inpatient and outpatient Vital Signs from Department of Defense and Veterans Affairs, ranging from 12 months to all on record, depending upon the facility. Vital Sign Value Date Comments Source SYSTOLIC BLOOD PRESSURE 134 12/19/19 25 10:00:26 [facility] DIASTOLIC BLOOD PRESSURE 65 025 10:00:26 [facility] PULSE OXIMETRY 94 % 12/18/2024 10:00:26 [facility] WEIGHT 134 12/18/2024 10:00:26 [facility] BMI 20 kg/m2 12/18[facility]2024 [facility] PAIN 5 12/18/2024 10:00:[facility] TEMPERATURE 98 12/18/2024 10:00:26 [facility] PULSE 86 12/18/2024 10:00:26 [facility] RESPIRATION 18 12/18/2024 10:00:26 [facility] SYSTOLIC BLOOD PRESSURE 133 12/12/19 25 11:24:16 [facility] DIASTOLIC BLOOD PRESSURE 76 025 11:24:16 [facility] PULSE OXIMETRY 94 12/11/2024 11:24:16 [facility] WEIGHT 133.4 12/11/2024 11:24:16 [facility] BMI 20 kg/m2 12/11/2024 11:24:16 [facility] PAIN 6 12/11/2024 11:24:16 [facility] TEMPERATURE 97.6 12/11/2024 11:24:16 [facility] PULSE 89 12/11/2024 11:24:16 [facility] SYSTOLIC BLOOD PRESSURE 115 11/21/19 25 15:02:29 [facility] DIASTOLIC BLOOD PRESSURE 64 025 15:02:29 [facility] PULSE OXIMETRY 91 11/20/2024 15:02:29 [facility] WEIGHT 132 11/20/2024 15:02:29 [facility] BMI 20 kg/m2 11/20/2024 15:02:29 [facility] PAIN 10 11/20/2024 15:02:29 [facility] TEMPERATURE 98.6 11/20/2024 15:02:29 [facility] PULSE 79 11/20/2024 15:02:29 [facility] SYSTOLIC BLOOD PRESSURE 114 04/28/20 10:15:00 [facility] DIASTOLIC BLOOD PRESSURE 52 10:15:00 [facility] PULSE 66 04/28/2024 10:15:00 [facility] SYSTOLIC BLOOD PRESSURE 108 04/27/20 09:31:00 [facility] DIASTOLIC BLOOD PRESSURE 64 09:31:00 [facility] PULSE OXIMETRY 90 04/27/2024 09:31:00 [facility] WEIGHT 133.0 04/27/2024 09:31:00 [facility] BMI 20 kg/m2 04/27/2024 09:31:00 [facility] PAIN 0 04/27/2024 09:31:00 [facility] TEMPERATURE 97.2 04/27/2024 09:31:00 [facility] PULSE 59 04/27/2024 09:31:00 [facility] Systolic Blood Pressure 122 mm[Hg] 02/15/20 14:17:01 [facility] EST Diastolic Blood Pressure 67 mm[Hg] 021 14:17:01 [facility] EST Systolic Blood Pressure 161 mm[Hg] 07/25/19 15:10:17 [facility] EST Diastolic Blood Pressure 67 mm[Hg] 022 15:10:17 [facility] EST Systolic Blood Pressure 149 mm[Hg] 02/15/20 14:15:26 [facility] EST Diastolic Blood Pressure 71 mm[Hg] 021 14:15:26 [facility] EST Systolic Blood Pressure 162 mm[Hg] 10/03/19 14:29:25 [facility] EST Diastolic Blood Pressure 68 mm[Hg] 14:29:25 [facility] EST Systolic Blood Pressure 139 mm[Hg] 10/21/19 14:18:05 [facility] EST Diastolic Blood Pressure 69 mm[Hg] 14:18:05 [facility] EST Systolic Blood Pressure 162 mm[Hg] 10/03/19 14:28:53 [facility] EST Diastolic Blood Pressure 69 mm[Hg] 14:28:53 [facility] EST Systolic Blood Pressure 139 mm[Hg] 02/12/20 19:48:00 [facility] EST Diastolic Blood Pressure 70 mm[Hg] 19:48:00 [facility] EST Systolic Blood Pressure 148 mm[Hg] 07/25/19 15:11:29 [facility] EST Diastolic Blood Pressure 67 mm[Hg] 15:11:29 [facility] EST Systolic Blood Pressure 144 mm[Hg] 04/24/20 13:38:28 [facility] EST Diastolic Blood Pressure 67 mm[Hg] 021 13:38:28 [facility] EST Systolic Blood Pressure 138 mm[Hg] 04/24/20 13:38:29 [facility] EST Diastolic Blood Pressure 67 mm[Hg] 021 13:38:29 [facility] EST Encounters Combined list of: 1) Encounters from Department of Veterans Affairs facilities going backup to the last 18 months, not all VA inpatient encounters are included; 2) Encounters from the Department of Defense facilities going backup to 280 months. Location Location Details Encounter Type Encounter Number Reason For Visit Attending Provider ADM Date DC Date Status Disposition Source [facility] Outpatient Encounter [id number] 06/21 [facility] OFFICE O/P EST HI 40-54 MIN [id number] Diagnos is: ICD-10- CM J45.998 Other asthma HAM ARGUETA [facility] MTMS BY PHARM SUSTAINMENT LOGISTICS ANALYST 15 MIN [id number] Diagnos is: ICD-10- CM J45.50 Severe persist ent asthma, uncompl icated GO CARROLL Kyle T 06/24 [place] Outpatient Encounter [id number] 06/24 [place] [facility] Outpatient Encounter [id number] 06/25 [place] Outpatient Encounter [id number] 07/07 [place] HC PRO PHONE CALL 5-10 MIN [id number] Diagnos is: ICD-10- CM I50.9 Heart failure , unspeci ANNABEL Johnson A 07/14 [place] [facility] Outpatient Encounter [id number] 07/15 [place] [facility] OFFICE O/P EST MOD 30 MIN [id number] Diagnos is: ICD-10- CM M79.602 Pain in left arm PRABHU TIFF 07/15 [facility] ELECTROCAR DIOGRAM TRACING [id number] Diagnos is: ICD-10- CM I25.10 Athscl heart disease of [place] coronar y artery w/o ang pctrs PRABHU ,TIFF 07/15 [place] [facility] ELECTROCAR DIOGRAM COMPLETE [id number] Diagnos is: ICD-10- CM I10 Essenti al (primar y) hyperte ROCIO Goodwin A 07/15 [place] PSYTX W PT 30 MINUTES [id number] Diagnos is: ICD-10- CM Z13.30 Encntr screen exam for mental hlth and behavrl disord, MELI Sewell IN F 07/15 [place] [facility] Outpatient Encounter [id number] 07/15 [place] [facility] MEASURE BLOOD OXYGEN LEVEL [id number] Diagnos is: ICD-10- CM J96.91 Respira tory failure , unspeci fied with hypoxia MIAN GONZALEZ 07/15 [place] HC PRO PHONE CALL 5-10 MIN [id number] Diagnos is: ICD-10- CM 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 AMIE Tejada 07/16 [place] [facility] CNSLT BEFORE SCREEN COLONOSC [id number] Diagnos is: ICD-10- CM Z12.11 Encount er for screeni ng for maligna nt neoplas m of colon SHARMILA FIELDS 07/16 [place] HC PRO PHONE CALL 11-20 MIN [id number] Diagnos is: ICD-10- CM J44.9 Chronic obstruc tive pulmona ry disease , unspeci fied ADRIA,BRA NDY R 07/27 [place] Outpatient Encounter [id number] 07/30 [place] OFFICE O/P EST HI 40 MIN [id number] Diagnos is: ICD-10- CM J44.9 Chronic obstruc tive pulmona ry disease , unspeci fied MARVIN ARGUETAT 08/05 [place] OFFICE O/P EST MOD 30 MIN [id number] Diagnos is: ICD-10- CM K62.5 Hemorrh age of anus and rectum SHARMILA FIELDS 08/05 [place] OFFICE O/P EST MOD 30 MIN [id number] Diagnos is: ICD-10- CM K40.90 Unil inguina l hernia, w/o obst or gangr, not spcf as recur ME HEYDI AVALOS 08/18 [place] Outpatient Encounter [id number] 08/18 [place] [facility] QNHP OL DIG ASSMT&MGMT 05-24 [id number] Diagnos is: ICD-10- CM Z51.81 Encount er for therape utic drug level monitor ALEX Kay 08/18 [place] MTMS BY PHARM EST 15 MIN [id number] Diagnos is: ICD-10- CM Z51.81 Encount er for therape utic drug level monitor CHESTER Johnson RA 08/24 [place] PT EDUCATION NOC INDIVID [id number] Diagnos is: ICD-10- CM K40.90 Unil inguina l hernia, w/o obst or gangr, not spcf as recur TOD BORGES V 08/27 [place] OFFICE O/P EST HI 40 MIN [id number] Diagnos is: ICD-10- CM Z01.818 Encount er for other preproc edural examina tiGO Juarez 08/27 [place] [facility] OFFICE O/P EST MOD 30 MIN [id number] Diagnos is: ICD-10- CM I25.10 Athscl heart disease of [place] coronar y artery w/o ang pctrs PABLITO SEGUNDO W 08/30 [place] Outpatient Encounter [id number] Diagnos is: ICD-10- CM K40.90 Unil inguina l hernia, w/o obst or gangr, not spcf as recur AYESHA MATUTE 08/31 [place] WATCHER [employer] INDIVIDU [id number] Diagnos is: ICD-10- CM Z71.81 Spiritu al or religio us 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 NOAM Mason PH G 08/31 [place] [facility] Outpatient Encounter [id number] JOVANY KENNEDY 08/31 [place] [facility] Outpatient Encounter [id number] [id number] BAILEYCA HEYDI 08/31 [place] [facility] HRNA RPR OMPHALOCEL E [id number] KIM NOLASCO 08/31 [place] [facility] Outpatient Encounter [id number] [id number] JOVANY KENNEDY 08/31 [place] [facility] HC PRO PHONE CALL 5-10 MIN [id number] [id number] Diagnos is: ICD-10- CM Z98.890 Other specifi ed postpro cedural states AYESHA MATUTE 09/01 [place] [facility] Outpatient Encounter [id number] JACKSON WOO THEW S [place] [facility] Outpatient Encounter [id number] [id number] 09/06 [place] [facility] Outpatient Encounter [id number] 09/20 [place] [facility] POSTOP FOLLOW-UP VISIT [id number] [id number] Diagnos is: ICD-10- CM K40.90 Unil inguina l hernia, w/o obst or gangr, not spcf as recur NICOLA COLE R 09/28 [place] [facility] Outpatient Encounter [id number] [id number] NICOLA COLE IE R 09/28 [place] [facility] WHEELCHAIR MNGMENT TRAINING [id number] [id number] Diagnos is: ICD-10- CM I65.29 Occlusi on and stenosi s of unspeci fied carotid artery VENTURA HUITRON W 09/28 [place] [facility] MTMS BY PHARM EST 15 MIN [id number] Diagnos is: ICD-10- CM Z51.81 Encount er for therape utic drug level monitor rupal CHESTER GREGORY RA Angulo 10/03 [place] [facility] ACTIVITY THERAPY, PER 15 MIN [id number] [id number] Diagnos is: ICD-10- CM F43.12 Post-tr aumatic stress disorde r, chronic FEEBACK,KATHLEEN RGARET B 10/13 [place] [facility] MEASURE BLOOD OXYGEN LEVEL 71060-3.59 [id number] Diagnos is: ICD-10- CM J44.9 Chronic obstruc tive pulmona ry disease , unspeci fied JEANIE COVINGTON R 10/21 [place] [facility] Outpatient Encounter [id number] 11/10 [place] [facility] HC PRO PHONE CALL 5-10 MIN [id number] [id number] Diagnos is: ICD-10- CM 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 AMIE Tejada S 11/11 [place] [facility] Outpatient Encounter [id number] TOD HINES 11/25 [place] [facility] Outpatient Encounter [id number] 11/29 [place] [facility] Outpatient Encounter [id number] [id number] 12/14 [place] [facility] HC PRO PHONE CALL 5-10 MIN [id number] [id number] Diagnos is: ICD-10- CM 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 ing AMIE SHORT S 12/14 [place] [facility] Outpatient Encounter [id number] [id number] 12/25 [place] [facility] Outpatient Encounter [id number] [id number] 42 12/26 [place] [facility] Outpatient Encounter [id number] 12/29 [place] [facility] HC PRO PHONE CALL 5-10 MIN [id number] [id number] Diagnos is: ICD-10- CM J44.1 Chronic obstruc tive pulmona ry disease w (acute) exacerb BEBA Urbina ERT S 12/29 [place] [facility] Outpatient Encounter [id number] [id number] 12/30 [place] [facility] Outpatient Encounter [id number] [id number] 02/03 [place] [facility] OFFICE O/P EST MOD 30 MIN [id number] Diagnos is: ICD-10- CM J44.9 Chronic obstruc tive pulmona ry disease , unspeci TOM Ocampo CIA 02/03 [place] [facility] OFFICE O/P EST LOW 20 MIN [id number] [id number] Diagnos is: ICD-10- CM I73.9 Periphe ral vascula r disease , unspeci héctorjanet ENESANJAY HENDERSON AEAdele T 02/13 [place] [facility] Outpatient Encounter [id number] Diagnos is: ICD-10- CM R06.81 Apnea, not elsewhe re classif ied GERARD ARMAS L 02/23 [place] [facility] SELF-MGMT EDUC & TRA[place] 1 [place] [id number] [id number] Diagnos is: ICD-10- CM R06.83 Snoring Danuta HERRERA L 02/28 [place] [facility] Outpatient Encounter [id number] 02/28 [place] [facility] Outpatient Encounter [id number] [id number] 03/03 [place] [facility] SLEEP STUDY UNATT&RESP EFFT [id number] [id number] Diagnos is: ICD-10- CM R06.83 Snoring ALE ROJAS 03/07 [place] [facility] SUPPLY OFFICER STDY UNATND W/ANAL [id number] [id number] Diagnos is: ICD-10- CM R06.83 Snoring TOM SALCEDO IAH 03/08 [place] [facility] MTMS BY PHARM EST 15 MIN [id number] [id number] Diagnos is: ICD-10- CM Z51.81 Encount er for therape utic drug level monitor ALEX Kay 03/09 [place] [facility] Outpatient Encounter [id number] [id number] 03/10 [place] [facility] HC PRO PHONE CALL 5-10 MIN [id number] [id number] Diagnos is: ICD-10- CM R68.89 Other general symptom s and signs AMIE SHORT TRISTON S 03/10 [place] [facility] OFF/OP EST NOVEMBER X REQ PHY/QHP [id number] [id number] Diagnos is: ICD-10- CM R68.89 Other general symptom s and signs AMIE SHORT TRISTON S 03/13 [place] [facility] Outpatient Encounter [id number] [id number] Diagnos is: ICD-10- CM J44.9 Chronic obstruc tive pulmona ry disease , unspeci fied LOIDA GOODWIN 03/20 [place] [facility] PT EDUCATION NOC INDIVID [id number] [id number] Diagnos is: ICD-10- CM J44.9 Chronic obstruc tive pulmona ry disease , unspeci fied LOIDA GOODWIN 03/20 [place] [facility] MTMS BY PHARM EST 15 MIN [id number] [id number] Diagnos is: ICD-10- CM Z51.81 Encount er for therape utic drug level monitor CHESTER Johnson RA 03/28 [place] [facility] OFFICE O/P EST MOD 30 MIN [id number] [id number] Diagnos is: ICD-10- CM I25.10 Athscl heart disease of [place] coronar y artery w/o ang pctrs PABLITO SEGUNDO W 04/03 [place] [facility] Outpatient Encounter [id number] [id number] 04/18 [place] [facility] Outpatient Encounter [id number] [id number] NORRIS BHATTI 04/26 [place] [facility] OFFICE O/P EST HI 40 MIN [id number] [id number] Diagnos is: ICD-10- CM J96.11 Chronic respira tory failure with hypoxia CARRIE HI 04/27 [place] [facility] PT EDUCATION NOC INDIVID 67533-4.59 [id number] Diagnos is: ICD-10- CM J44.9 Chronic obstruc tive pulmona ry disease , unspeci fied ESTHER,MUKESH RI E 04/27 [place] [facility] HC PRO PHONE CALL 5-10 MIN [id number] [id number] Diagnos is: ICD-10- CM 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 Eulalia Casey 04/28 [place] [facility] [id number] [id number] Diagnos is: ICD-10- CM I10 Essenti al (primar y) hyperte FORTINO Barrett IE D 04/28 [place] [facility] MTMS BY PHARM EST 15 MIN [id number] [id number] Diagnos is: ICD-10- CM Z51.81 Encount er for therape utic drug level monitor rupal ALEX CHA ALEXANDR E 04/28 [place] [facility] HC PRO PHONE CALL 5-10 MIN [id number] [id number] Diagnos is: ICD-10- CM 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 AMIE Tejada 05/03 [place] [facility] Outpatient Encounter [id number] [id number] 05/14 [place] [facility] COMPRE OPH EXAM EST PT 1/ [id number] [id number] Diagnos is: ICD-10- CM H52.4 Presbyo KEVIN Joyner 05/17 [place] [facility] Outpatient Encounter [id number] [id number] 05/18 [place] [facility] Outpatient Encounter [id number] [id number] 05/19 [place] [facility] MEASURE BLOOD OXYGEN LEVEL 28371-5.59 [id number] Diagnos is: ICD-10- CM J44.9 Chronic obstruc tive pulmona ry disease , unspeci fied ADRIA,JEANIE GUTIERREZY R 05/24 [place] [facility] EVALUATION OF WHEEZING [id number] [id number] Diagnos is: ICD-10- CM J44.9 Chronic obstruc tive pulmona ry disease , unspeci fied LOIDA GOODWIN 05/24 [place] [facility] Outpatient Encounter [id number] [id number] 06/07 [place] [facility] Outpatient Encounter [id number] [id number] HAM ARGUETA 06/08 [place] [facility] Outpatient Encounter [id number] [id number] Diagnos is: ICD-10- CM J96.11 Chronic respira tory failure with hypoxia HAM ARGUETA 06/08 [place] [facility] Outpatient Encounter [id number] 07/31 [place] [facility] MTMS BY PHARM EST 15 MIN [id number] [id number] Diagnos is: ICD-10- CM Z51.81 Encount er for therape utic drug level monitor CHESTER Johnson RA 07/31 [place] [facility] BREATHING CAPACITY TEST 70932-8.59 [id number] Diagnos is: ICD-10- CM J44.9 Chronic obstruc tive pulmona ry disease , unspeci fied CHRISTALOIDARamesh CLAIRE 08/29 [place] [facility] En[facility] [id number] [id number] 08/30 [place] [facility] Outpatient Encounter [id number] [id number] 09/20 [place] [facility] Outpatient Encounter [id number] [id number] 09/28 [place] [facility] Outpatient Encounter [id number] [id number] 11/15 [place] [facility] Outpatient Encounter [id number] [id number] 11/15 [place] [facility] PH ASSMT&MGMT NQHP 5-10 [id number] [id number] Diagnos is: ICD-10- CM 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 AMIE Tejada 11/16 [place] [facility] OFFICE O/P EST HI 40 MIN 14673-6.59 [id number] Diagnos is: ICD-10- CM J96.11 Chronic respira tory failure with hypoxia JADON GONZALEZ 11/20 [place] [facility] EVALUATE PT USE OF INHALER 80182-7.59 [id number] Diagnos is: ICD-10- CM J44.9 Chronic obstruc tive pulmona ry disease , unspeci fied ADRIA,BRA NDY R 11/20 [place] [facility] Outpatient Encounter [id number] [id number] 11/22 [place] [facility] Outpatient Encounter [id number] [id number] 11/28 [place] [facility] Outpatient Encounter [id number] [id number] 56 11/30 [place] [facility] PH1 ASSMT&MGMT NQHP 5-10 [id number] [id number] Diagnos is: ICD-10- CM 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 Eulalia Casey 12/01 [place] [facility] Outpatient Encounter [id number] [id number] 12/11 [place] [facility] OFFICE O/P EST MOD 30 MIN [id number] [id number] Diagnos is: ICD-10- CM I25.10 Athscl heart disease of [place] coronar y artery w/o ang pctrs NANDA GIRON L 12/11 [place] [facility] Outpatient Encounter [id number] [id number] 12/13 [place] [facility] Outpatient Encounter [id number] [id number] 12/15 [place] [facility] OFFICE O/P EST MOD 30 MIN 99952-3.59 [id number] Diagnos is: ICD-10- CM I25.10 Athscl heart disease of [place] coronar y artery w/o ang pctrs PABLITO SEGUNDO W 12/18 [place] Outpatient Encounter [id number] [id number] 12/18 [place] [facility] Outpatient Encounter [id number] 12/19 [place] [facility] Procedures Combined list of: 1) Procedures from Department of Veterans Affairs facilities going back up to thelast 18 months, not all [place] non-surgical procedures are included; 2) All procedures from the Department of Defense facilities. Procedure Procedure Type Code Date Perfomer Comments [facility] e OPEN LEFT INGUINAL HERNIA REPAIR WITH MESH ANES HRNA RPR OMPHALOCELE 65787 2023 [facility] THROMBOENDARTERECTO MY, INCLUDING PATCH GRAFT, IF PERFORMED; SUPERFICIAL FEMORAL ARTERY TEAEC W/GRAFT SUPERFICIAL FEMORAL ART 99219 2015 [facility] THROMBOENDARTERECTO MY, INCLUDING PATCH GRAFT, IF PERFORMED; DEEP (PROFUNDA) FEMORAL Thromboendarterecto my, with or without patch graft; deep (profunda) femoral 37777 2015 [facility]acy THROMBOENDARTERECTO MY, INCLUDING PATCH GRAFT, IF PERFORMED; COMMON FEMORAL Thromboendarterecto my, with or without patch graft; common femoral [id number] 2015 [facility] REVASCULARIZATION, ENDOVASCULAR, OPEN OR PERCUTANEOUS, ILIAC ARTERY, UNILATERAL, INITIAL VESSEL; WITH TRANSLUMINAL STENT PLACEMENT(S), INCLUDES ANGIOPLASTY WITHIN THE SAME VESSEL, WHEN PERFORMED Revascularization, endovascular, open or percutaneous, iliac artery, unilateral, initial vessel; with transluminal stent placement(s), includes angioplasty within the same vessel, when performed 81416 2015 [facility] Intravascular imaging of coronary ve els 2008 [facility] Coronary arteriography using two catheters Coronary arteriography using two catheters (procedure) [id number] 2008 [facility] Angiocardiography of left heart structures Angiocardiography of left heart (procedure) [id number] 2008 [facility] Left heart cardiac catheterization Catheterization of left heart (procedure) [id number] 2008 [facility] Insertion of drug-eluting coronary artery stent(s) 2007 [facility] Insertion of one vascular stent 2007 [facility] Procedure on single ve el Procedure on blood vessel (procedure) [id number] 2007 [facility] Percutaneous transluminal coronary angioplasty [PTCA] 2007 [facility] Coronary arteriography using two catheters Coronary arteriography using two catheters (procedure) [id number] 2007 [facility] PERCUTANEOUS TRANSLUMINAL CORONARY BALLOON ANGIOPLASTY; SINGLE VESSEL Percutaneous transluminal coronary balloon angioplasty; single vessel 67515 2007 [facility] Intravascular imaging of coronary ve els 2006 [facility] Percutaneous transluminal coronary angioplasty [PTCA] 2006 [facility] Procedure on single ve el Procedure on blood vessel (procedure) [id number] 2006 [facility] Left heart cardiac catheterization Catheterization of left heart (procedure) 55366879 2006 [facility] Insertion of drug-eluting coronary artery stent(s) 2006 [facility] Insertion of one vascular stent 2006 [facility] EXCISION OF CHALAZION; SINGLE Excision of chalazion; single 67047 2005 [facility] Left heart cardiac catheterization Catheterization of left heart (procedure) 98152447 2004 [facility] Insertion of drug-eluting coronary artery stent(s) 2004 [facility] Coronary arteriography using two catheters Coronary arteriography using two catheters (procedure) [id number] 2004 [facility] Single Ve el Percutaneous Transluminal Coronary Angioplasty [PTCA] or Coronary Atherectomy without Mention of Thrombolytic Agent 2004 [facility] Continuous invasive mechanical ventilation for 96 consecutive hours or more Artificial respiration (procedure) [id number] 2004 [facility] Social History Combined list of available smoking, tobacco, and other social history from Department of Defense and Veterans Affairs facilities. Social History Type Response Date Comment Sourc e Tobacco smoking status NHIS [facility]-TOBACCO NEVER USED 04/03/2024 [facility] History of tobacco use [facility]-TOBACCO FORMER USER 03/18/2023 [facility] History of tobacco use UT-TOBACCO FORMER USER 04/30/2022 [facility] History of tobacco use UT-TOBACCO FORMER USER 04/24/2021 [facility] of [facility]2021 [facility] Sex Representation Male (finding) 09/17/2020 Un known Organization [facility]2018 [facility] History of tobacco use V9 QUIT TOBACCO > 7 YEARS AGO 02/09/2017 [facility] History of tobacco use NON-TOBACCO USE INPATIENT 01/21/2016 [facility] History of tobacco use V9 QUIT TOBACCO > 7 YEARS AGO 01/13/2016 [facility] History of tobacco use V9 QUIT TOBACCO > 7 YEARS AGO 02/11/2015 [facility] History of tobacco use V9 TOBACCO OFFERED 03/16/2014 [facility] History of tobacco use QUIT TOBACCO >7 YEARS AGO 08/26/2009 [facility] History of tobacco use TOBACCO FORMER US ER LESS 12 MONTHS 03/24/2009 [facility] History of tobacco use QUIT TOBACCO IN T HE LAST 12 MONTHS 11/08/2008 [facility] History of tobacco use QUIT TOBACCO IN T HE LAST 12 MONTHS 11/02/2008 [facility] History of tobacco use TOBACCO FORMER US ER LESS 12 MONTHS 04/25/2008 [facility] History of tobacco use COLS TOBACCO CURRENT USER 02/01/2008 [facility] Sexual Orientation [facility] Gender identity [facility] Assessment and Plan Combined list of future care activities from Department of Defense and Veterans Affairs facilities (e.g., assessment and plan notes, appointments, orders, and referrals). Additional future care activities may be listed in the Plan of Care section. Result Assessment and Plan Date Source Assessment and Plan No data available for this section 12/19/2024 [facility] Plan of Care List of future care activities from [facility] facilities. Additional future care activities may be listed in the Assessment and Plan section. Date/Time Care Activity Care Activity Detail Facili ty 12/11/2024 Consult Order MED DERMATOLOGY OUTPATIENT Cons Mechanical Assembly's Choice [facility] Advance Directives List of completed, amended, or rescinded Advance Directives on record at [facility] facilities. An actual copy of the Directive is not included. Date Advance Directive Provider Source 04/16/2010 ADVANCE DIRECTIVE [facility] Functional Status Combined list of recent functional and cognitive assessments recorded at Department of Defense and Veterans Affairs (VA).VA Functional Dodge Measurement (FIM) Scale: 1 = Total Assistance (Subject = 0% +), 2 = Maximal Assistance (Subject = 25% +), 3 = Moderate Assistance (Subject = 50% +), 4 = Minimal Assistance (Subject = 75% +), 5 = Supervision, 6 = Modified Dodge (Device), 7 = Complete Dodge (Timely, Safely). Assessment Date/Time Source Assessment Type Assessment Skill Assessment Score Assessment Details No data available for this section
--- OUTSIDE RECORDS SUMMARY | 2024-12-19 18:21 | XMS_ITS | Clinical Summary ---
Author Organization Healthcare Address [address] [place] [address] Care Team Providers Care Clinical Scientist Name Role Phone Unavailable Primary Care Provider [...] UKY-Zoster Vaccines (2 of 3) 10/09/2014 08/14/2014 [id number] Vaccine (3 - 2023- season) 2024 08/24/2020, [...] age to complete this topic Insurance [place] [id number] MEDICARE
--- OUTSIDE RECORDS SUMMARY | 2024-12-19 18:21 | XMS_ITS | Encounter Summary ---
Author Name [facility] [place] [facility] [place] [facility] [place] Address [address] [place] [address] Care Team Providers Care Dental Assisting Instructor Name Role Phone IRASEMA GIRON Primary Care [...] PART A Jun 04, 2009 PART A [id number] [phone] [place] PATIENT MEDICARE (WNR) MEDICARE (M) PART A Jun 04, 2009 PART A [id number] [phone] [place] PATIENT MEDICARE (WNR) MEDICARE (M) PART A Jun 04, 2009 PART A [id number] [phone] [place] PATIENT MEDICARE (WNR) MEDICARE (M) PART A Jun 04, 2009 PART A [id number] [phone] [place] PATIENT MEDICARE (WNR) MEDICARE (M) PART A Jun 04, 2009 PART A [id number] [place] PATIENT Selected Encounter This section includes the information on record at [place] for the Encounter. Date/Time Encounter Type Encounter Description Reason Pro vider Source IHE Encounter Template Text not used by [facility] Advance Directives: All historical and current Section [...]
[2024-12-19] MEDS: BUDESONIDE 0.5MG/2ML NEB 0.5 MG IH (18:22)
[2024-12-19] MEDS: IPRATROPIUM/ALBUTEROL 3 ML NEB IH ×2 (18:22→21:50)
[2024-12-19 18:37] LABS: Lactic Acid Follow up (RFLX 2) 2.5 mmol/L (0.7-2.1)
[2024-12-19 18:39] LABS: Troponin I < 0.01 ng/ml (0.00-0.034)
--- NOTE | 2024-12-19 19:34 | PC.NURSE ---
patient unable to confirm medications and external pharmacy only showed rx's from september.
[2024-12-19] MEDS: APIXABAN 5MG TABLET 5 MG PO (21:12)
[2024-12-20] VITALS (9 sets, daily range): BP systolic 85–106; BP diastolic 49–61; PULSE 61–110; RESP 17–24; TEMP 36.5–37; O2SAT 97–100; BMI 17.9
[2024-12-20] MEDS: IPRATROPIUM/ALBUTEROL 3 ML NEB IH ×3 (02:02→09:36)
[2024-12-20] MEDS: BUDESONIDE 0.5MG/2ML NEB 0.5 MG IH (06:14)
--- NOTE | 2024-12-20 06:16 | PC.NURSE ---
Pt is A&Ox4. Pt is has been 2.5/3L per [place]. Pt was able to tolerate his Bipap for a few hours. Pt has not voiced any concerns at this time. Pt is resting in bed w/ call light in reach. Plan of care ongoing.
[2024-12-20 06:22] LABS: Basophils % 0.1 % (0.1-2.0); Hematocrit 39.4 % (42.0-52.0); Immature Granulocytes # 0.02 10^3uL; Immature Granulocytes % 0.3 %; Lymphocytes # 0.4 K/mm3 (0.7-4.5); Lymphocytes % 6.4 % (10-50); Mean Corpuscular Hemoglobin 29.3 pg (27.0-31.2); Mean Corpuscular Volume 88.7 fl (80-94); Mean Platelet Volume 9.8 fl (7.4-10.4); Monocytes # 0.1 K/mm3 (0.1-1.0); Monocytes % 2.1 % (1.7-9.3); Neutrophils # 6.2 K/mm3 (1.8-7.8); Neutrophils % 91.1 % (37.0-80.0); Nucleated Red Blood Cells # 0 10^3/uL; Nucleated Red Blood Cells % 0 %; Platelet Count 196 K/mm3 (142-424); Red Blood Count 4.44 M/mm3 (4.60-6.20); Red Cell Distribution Width 13.1 % (11.5-17.5); Red Cell Distribution Width-SD 42.5 fL; White Blood Count 6.8 K/mm3 (4.8-10.8)
[2024-12-20 06:23] LABS: MANUAL DIFFERENTIAL MANUAL DIFFERENTIAL (MANUAL DIFF)
[2024-12-20 06:38] LABS: Albumin Level 3.6 g/dl (3.5-5.0); Chloride 92 mmol/L (98-107); Potassium 4.9 mmoL/L (3.5-5.1); Sodium 127 mmol/L (136-145)
[2024-12-20 06:41] LABS: Alanine Aminotransferase 14 U/L (12-78); Albumin/Globulin Ratio 1.3 (1.1-1.8); Alkaline Phosphatase 60 U/L (38-126); Anion Gap 6.9 mEq/L (5-15); Aspartate Amino Transferase 23 U/L (17-59); Bilirubin,Total 0.5 mg/dl (0.2-1.3); Blood Urea Nitrogen 8 mg/dl (9-20); Calcium 8.7 mg/dl (8.4-10.2); Carbon Dioxide 33 mmol/L (22.0-30.0); Creatinine Clearance Estimated 53 mL/min (50-200); Estimated Glomerular Filt Rate 163 ml/min (>60); GFR (African American) 197 ML/MIN (>60); Globulin 2.8 g/dL (1.3-3.2); Glucose 139 mg/dl (74-100); Magnesium 1.6 mg/dl (1.6-2.3); Total Protein,Serum 6.4 g/dl (6.3-8.2)
[2024-12-20 07:26] LABS: Lymphocytes % 4 % (10-50); Monocytes % 1 % (2-9); Neutrophils % 94 % (42-76); Total Cells Counted 100
[2024-12-20 07:29] LABS: Platelet Estimate Normal; RBC Morphology Normal
[2024-12-20] MEDS: APIXABAN 5MG TABLET 5 MG PO (08:29)
[2024-12-20 09:02] LABS: VBG Base Excess 0.9 mmol/L (-2.4-2.3); VBG HCO3 27.4 mmol/L (23-30); VBG Oxygen Saturation 64.6 % (50-70); VBG PCO2 56.9 mmol/L (35-51); VBG PO2 35.2 mmol/L (28-40); VBG Total CO2 29.1 mmol/L (23-27)
--- NOTE | 2024-12-20 09:32 | EXP.PULM.CON ---
History of Present Illness History of present illness: Mr. Mosher is a 74-year-old male COPD, chronic hypoxic respiratory failure multiple hospital admissions for hypercarbic respiratory failure most recent admission from September 2024 presented today with worsening respiratory distress found to be in hypercarbic respiratory failure needing 1 noninvasive ventilatory therapy and pulmonary was called for management. [facility] Disclaimer: The information contained in this section may have been updated after the patient was seen, as this information can be updated by other users. Medical History Supplemental oxygen dependent Acute hypotension Adult failure to thrive Elevated bilirubin Elevated troponin Acute on chronic respiratory failure with hypoxia and hypercapnia Leukocytosis Pleural effusion Traumatic hematoma of head Fall Pneumonia Acute respiratory failure with hypoxemia Acute exacerbation of chronic obstructive pulmonary disease Chest pain Acute exacerbation of chronic obstructive pulmonary disease Abnormal electrocardiogram [ECG] [EKG] Chest pain Shortness of breath Tension pneumothorax Right upper lobe pulmonary nodule Dyspnea Increasing shortness of breath Acute hyponatremia Low back pain Congestive heart failure Hyponatremia Atrial fibrillation Hyponatremia COPD (chronic obstructive pulmonary disease) with acute bronchitis Sepsis HFrEF (heart failure with reduced ejection fraction) Pneumonia Non-ST elevation CO (NSTEMI) Coronary artery disease Diastolic dysfunction HLD (hyperlipidemia) Hypertension Pulmonary emphysema Fibrosis of lung COPD exacerbation Dyspnea on exertion Bilateral carotid artery stenosis Swelling of right upper extremity Cardiomyopathy Surgical History H/O hernia repair Family History Other Colorectal cancer Social History Smoking Status: Former smoker alcohol intake: current alcohol intake frequency: holidays/special occasions only current occupational status: employed Travel in the last 8 weeks?: None household members: spouse 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 [employer] caffeine: No Have you lived/traveled outside [place] in past 30 days?: No Contact w/someone who lives/traveled outside US past 30 days?: No Exposure to someone with infectious disease in past 14 days?: No Do you have a fever (greater than 100.4 F or 38 C)?: No Have you tested positive for COVID-19?: No Exposed to someone with COVID-19 in past 14 days?: No Do you have a sore throat?: No Do you have a cough?: No Do you have any weakness?: No Do you have any diarrhea?: No Are you experiencing any unusual bleeding?: No Do you have any muscle aches/pain?: No Do you have any abdominal pain?: No Are you experiencing loss of taste or smell?: No Review of Systems Constitutional Constitutional: Reports anorexia, Reports body ache(s) and Reports fatigue Eyes Eyes: Denies eye discharge, Denies dry eyes, Denies irritation and Denies itchy eyes ENT Ears, Nose, Mouth, and Throat: Denies epistaxis, Denies facial pain, Denies lip swelling and Denies throat swelling *Cardiovascular Cardiovascular: Reports chest pain, Reports dyspnea and Reports dyspnea on exertion *Respiratory Respiratory: Denies change in phlegm color, Reports chest congestion, Reports cough, Reports dyspnea, Reports dyspnea on exertion, Denies excessive phlegm production, Denies hemoptysis, Denies pain on inspiration, Denies pain with cough and Reports wheezing *Gastrointestinal Gastrointestinal: Denies abdominal pain, Denies belching and Denies cramping *Musculoskeletal Musculoskeletal: Reports back pain, Reports myalgias and Reports other (No small joint swelling or Pain) Psychiatric Psychiatric: Denies homicidal ideation and Denies suicidal ideation Endocrine Endocrine: Reports fatigue and Denies heat intolerance Hematologic/Lymphatic Hematologic/Lymphatic: Denies easy bleeding and Denies lymphadenopathy Allergic/Immunologic Allergic/Immunologic: Denies itchy eyes, Denies lip swelling, Denies throat swelling and Reports wheezing Pulmonology Exam Inpatient Vital signs and Labs for Last 24 Hours: Temp Pulse Resp BP Pulse Ox O2 Del Method O2 Flow Rate 98.1 F 85 24 90/50 L 100 Room Air 2 12/20/24 04:00 12/20/24 06:14 12/20/24 04:00 12/20/24 08:58 12/20/24 06:14 12/20/24 06:39 12/20/24 06:14 FiO2 35 12/20/24 02:00 Laboratory Results - last 24 hr 12/19/24 11:08: WBC 9.0, RBC 4.64, Hgb 13.6 L, Hct 41.0 L, MCV 88.4, MCH 29.3, MCHC 33.2, RDW 13.2, Plt Count 240, MPV 9.7, Neut % (Auto) 74.8, Lymph % (Auto) 16.8, [place] % (Auto) 6.9, Eos % (Auto) 0.9, Baso % (Auto) 0.4, Neut # (Auto) 6.7, Lymph # (Auto) 1.5, [place] # (Auto) 0.6, Eos # (Auto) 0.1, Baso # (Auto) 0.0, PT 11.2, INR 1.01, APTT 31.9 H, Sodium 123 L, Potassium 4.5, Chloride 88 L, Carbon Dioxide 31 H, Anion Gap 8.5, BUN 3 L, Creatinine 0.50 L, Estimated Creat Clear 54, Estimated GFR 163, Est GFR ( Amer) 197, Glucose 82, Calcium 9.3, Total Bilirubin 0.9, AST 32, ALT 14, Alkaline Phosphatase 57, Troponin I 0.01, Total Protein 7.3, Albumin 4.3, Globulin 3.0, Albumin/Globulin Ratio 1.4 12/19/24 11:31: VBG pH 7.29 L, VBG pCO2 61.6 H, VBG pO2 31.8, VBG HCO3 28.6, VBG Total CO2 30.5 H, VBG O2 Saturation 54.7, VBG Base Excess 2.0, VBG Lactic Acid 2.1 H 12/19/24 13:51: Troponin I < 0.01 12/19/24 14:45: VBG pH 7.21 L, VBG pCO2 72.1 H, VBG pO2 42.8 H, VBG HCO3 28.4, VBG Total CO2 30.7 H, VBG O2 Saturation 69.0, VBG Base Excess 0.6, VBG Lactic Acid 1.3 12/19/24 15:39: Lactate 2.3 H 12/19/24 16:39: Chlamy pneumoniae PCR Not detected, Adenovirus (PCR) Not detected, B. pertussis DNA (PCR) Not detected, Coronavirus OC43 (PCR) Not detected, Coronavirus HKU1 (PCR) Not detected, Coronavirus 229E (PCR) Not detected, SARS-CoV-2 (PCR) Not detected, Coronavirus NL63 (PCR) Not detected, Human Metapneumovir PCR Not detected, Influenza A (H1) PCR Not detected, Influ A (H1N1/09) PCR Not detected, Influenza A (H3) PCR Not detected, Influenza Type A (PCR) Not detected, Influenza Type B (PCR) Not detected, M. pneumoniae (PCR) Not detected, Parainfluenza 1 (PCR) Not detected, Parainfluenza 2 (PCR) Not detected, Parainfluenza 3 (PCR) Not detected, Parainfluenza 4 (PCR) Not detected, RSV (PCR) Not detected, Entero/Rhino (PCR) Not detected 12/19/24 16:55: VBG pH 7.25 L, VBG pCO2 61.6 H, VBG pO2 44.3 H, VBG HCO3 26.4, VBG Total CO2 28.3 H, VBG O2 Saturation 74.5 H, VBG Base Excess -0.8, VBG Lactic Acid 2.3 H 12/19/24 17:50: Lactate 2.5 H, Troponin I < 0.01 12/20/24 05:27: WBC 6.8, RBC 4.44 L, Hgb 13.0 L, Hct 39.4 L, MCV 88.7, MCH 29.3, MCHC 33.0, RDW 13.1, Plt Count 196, MPV 9.8, Neut % (Auto) 91.1 H, Lymph % (Auto) 6.4 L, [place] % (Auto) 2.1, Eos % (Auto) 0.0 L, Baso % (Auto) 0.1, Neut # (Auto) 6.2, Lymph # (Auto) 0.4 L, [place] # (Auto) 0.1, Eos # (Auto) 0.0, Baso # (Auto) 0.0, Total Counted 100, Neutrophils % (Manual) 94 H, Lymphocytes % (Manual) 4 L, Monocytes % (Manual) 1 L, Basophils % (Manual) 1.0, Platelet Estimate Normal, RBC Morphology Normal, Sodium 127 L, Potassium 4.9, Chloride 92 L, Carbon Dioxide 33 H, Anion Gap 6.9, BUN 8 L D, Creatinine 0.50 L, Estimated Creat Clear 53, Estimated GFR 163, Est GFR ( Amer) 197, Glucose 139 H D, Calcium 8.7, Magnesium 1.6, Total Bilirubin 0.5, AST 23 D, ALT 14, Alkaline Phosphatase 60, Total Protein 6.4, Albumin 3.6 D, Globulin 2.8, Albumin/Globulin Ratio 1.3 12/20/24 08:55: VBG pH 7.30 L, VBG pCO2 56.9 H, VBG pO2 35.2, VBG HCO3 27.4, VBG Total CO2 29.1 H, VBG O2 Saturation 64.6, VBG Base Excess 0.9, VBG Lactic Acid 4.0 H I & O for Labs for Last 24 Hours: Intake & Output 12/17/24 12/18/24 12/19/24 12/20/24 23:59 23:59 23:59 23:59 Intake Total 100 / 100 420 / 420 Output Total 1600 / 1800 850 / 850 Balance -1500 / -1700 -430 / -430 Weight 133 lb 5 oz 128 lb 4.8 oz Constitutional: Present moderate distress Head: Present normocephalic and atraumatic ENT: Present normal exam, normal oropharynx and mucous membranes moist Neck: Present normal inspection and full ROM Respiratory: Present diminished air movement and able to speak in complete sentences; Absent respiratory distress, rhonchi or wheezes Cardiac: Present S1/S2, Tachycardia and radial pulses present GI: Present soft and distention; Absent tenderness or guarding Skin: Present intact; Absent cyanosis or jaundice Neuro: Present alert, awake and oriented x 3 Extremities: Present normal inspection; Absent clubbing or cyanosis Psychiatric: Present normal affect and cooperative Meds Home Medications and Allergies Home Medications ?Medication ?Instructions ?Recorded ?Confirmed ?Type albuterol sulfate 90 mcg/actuation 2 puff inhalation Q4HP PRN 10/22/22 12/20/24 History aerosol inhaler Shortness of air apixaban 5 mg tablet 5 mg PO BID 10/22/22 12/20/24 History fluticasone fur. 100 mcg-umeclid 1 inh inhalation DAILY 30 days #60 09/05/24 12/20/24 Rx 62.5 mcg-vilant 25 mcg ea inhalat.powder (Trelegy Ellipta) furosemide 40 mg tablet 40 mg PO DAILY 30 days #30 tabs 09/05/24 12/20/24 Rx sacubitril 24 mg-valsartan 26 mg 1 tab PO BID 15 days #30 tabs 09/16/24 12/20/24 Rx tablet (Entresto) Held on 12/20/24. Instructions: due to low blood pressure, until see cardiology for follow-up azithromycin 500 mg tablet 500 mg PO Q24H 3 days #3 tabs 12/20/24 Rx New Prescriptions to Start Prescriptions: azithromycin Macario Turner Allergies Allergy/AdvReac Type Severity Reaction Status Date / Time No Known Allergies Allergy Verified 09/18/24 09:31 Results Laboratory Findings 12/20/24 05:27 12/20/24 05:27 PT/INR, D-dimer PT 11.2 seconds (10.1-12.5) 12/19/24 11:08 INR 1.01 (0.9-1.1) 12/19/24 11:08 Abnormal lab findings: Abnormal Labs 12/19/24 12/19/24 12/19/24 11:08 11:31 14:45 RBC Hgb 13.6 L Hct 41.0 L Neut % (Auto) Lymph % (Auto) Eos % (Auto) Lymph # (Auto) Neutrophils % (Manual) Lymphocytes % (Manual) Monocytes % (Manual) APTT 31.9 H VBG pH 7.29 L 7.21 L VBG pCO2 61.6 H 72.1 H VBG pO2 42.8 H VBG Total CO2 30.5 H 30.7 H VBG O2 Saturation VBG Lactic Acid 2.1 H Sodium 123 L Chloride 88 L Carbon Dioxide 31 H BUN 3 L Creatinine 0.50 L Glucose Lactate 12/19/24 12/19/24 12/19/24 15:39 16:55 17:50 RBC Hgb Hct Neut % (Auto) Lymph % (Auto) Eos % (Auto) Lymph # (Auto) Neutrophils % (Manual) Lymphocytes % (Manual) Monocytes % (Manual) APTT VBG pH 7.25 L VBG pCO2 61.6 H VBG pO2 44.3 H VBG Total CO2 28.3 H VBG O2 Saturation 74.5 H VBG Lactic Acid 2.3 H Sodium Chloride Carbon Dioxide BUN Creatinine Glucose Lactate 2.3 H 2.5 H 12/20/24 12/20/24 05:27 08:55 RBC 4.44 L Hgb 13.0 L Hct 39.4 L Neut % (Auto) 91.1 H Lymph % (Auto) 6.4 L Eos % (Auto) 0.0 L Lymph # (Auto) 0.4 L Neutrophils % (Manual) 94 H Lymphocytes % (Manual) 4 L Monocytes % (Manual) 1 L APTT VBG pH 7.30 L VBG pCO2 56.9 H VBG pO2 VBG Total CO2 29.1 H VBG O2 Saturation VBG Lactic Acid 4.0 H Sodium 127 L Chloride 92 L Carbon Dioxide 33 H BUN 8 L D Creatinine 0.50 L Glucose 139 H D Lactate Assessment and Plan *Assessment and plan (1) Acute on chronic respiratory failure with hypoxia and hypercapnia: Status: Acute Category: Medical Code(s): J96.21 - Acute and chronic respiratory failure with hypoxia; J96.22 - Acute and chronic respiratory failure with hypercapnia (2) Acute exacerbation of chronic obstructive pulmonary disease: Status: Acute Category: Medical Code(s): J44.1 - Chronic obstructive pulmonary disease with (acute) exacerbation Plan Mr. Mosher is a 74-year-old male COPD, chronic hypoxic respiratory failure multiple hospital admissions for hypercarbic respiratory failure most recent admission from September 2024 presented today with predominant complaint of chest discomfort also found to be inworsening respiratory distress found to be in hypercarbic respiratory failure needing 1 noninvasive ventilatory therapy and pulmonary was called for management. Afebrile. Hemodynamically stable. No evidence of leukocytosis. Blood gas upon admission hypercarbic respiratory failure with a pH of 7.29 and pCO2 61.6, worsened to 7.21 and 72.1 needing noninvasive ventilator therapy with improving hypercarbic respiratory failure blood gas this morning at 7.30 and 56.9. CTA upon admission no evidence of pulmonary embolism. No dense consolidative airspace changes. Comprehensive viral respiratory PCR panel negative Currently being managed for COPD exacerbation, receiving nebulization therapies and steroids. Patient denies any worsening cough or any productive phlegm. On examination today no significant wheezing. Alert and oriented x 3. Currently following [facility] for his health care. Plan: -Continue home Trelegy inhaler along with DuoNebs 4 times daily as needed -Prednisone 40 mg daily x 5 days -Azithromycin to complete a total of 5-day course -Patient would benefit from evaluation for need for noninvasive ventilator therapy as an outpatient basis for recurrent hypercarbic respiratory failure. Recommend relaying discharge summary to [facility] as patient health care is provided by [facility] and he is not coming to any follow-ups care after discharge here at [facility] #Patient can be discharged from pulmonary standpoint. Recommend follow-up pulmonary at [facility] or [facility] in 2 to 4 weeks postdischarge.
[2024-12-20] MEDS: SODIUM CHLORIDE 3% 15ML NEB 3 ML IH (09:36)
--- NOTE | 2024-12-20 09:36 | HMH.PTEV ---
Physical Therapy Evaluation Rehab PT IP Evaluation Start: 12/19/24 18:09 Freq: .once Status: Active Protocol: Document 12/20/24 09:32 ESPERANZA (Rec: 12/20/24 09:36 ESPERANZA [id number]) Subjective/History History History Per H&P: Mr. Mosher is a 74-year-old male with COPD, chronic hyponatremia, ptosis of the lungs, HFrEF, failure to thrive, A-fib, with LifeVest in place. Chronic oxygen requirement of 3 L. Was admitted to our facility a few months ago with similar presentation to today. States that he was at home and developed worsening pain over the past day or 2 in his left lower chest/rib cage. Worse with each breath. Denies any palpitations, nausea, vomiting. He did try nitro at home prior to coming to the ER with no benefit. Denies experience this pain devious [place]. Reports taking his medications at home including Eliquis. Denies any fever. Workup in the ER concern for respiratory acidosis. Labs with normal white count of 9.0, hemoglobin 13.6. Kidney function at baseline BUN 30, creatinine 0.5. Sodium low at 123 consistent with chronic hyponatremia. Elevated bicarb/carbon dioxide at 31. Blood gas with VBG showing respiratory acidosis. Medicine consulted for admission of left-sided chest pain/pleuritic pain and respiratory acidosis. I agreed to admit for further care. On my evaluation, patient is worn BiPAP for few hours and is doing better. Patient tolerating 3 to 4 L oxygen upon arrival to the floor. Alert and oriented x 4. Stating pain is somewhat better since receiving some meds in the ER. States he is hungry. Subjective Subjective PLOF: IND with all mobility without AD usage. One fall in past 30 days. Still [address]. Home: Single-story home with 5 ZAHRA. Available assistance: can provide 24/7 if needed. [facility] How much help from another person do you currently need... Turning from your None back to your side while in a flat bed without using bedrails? Moving from lying on None back to sitting on the side of a flat bed without using bedrails? Moving to and from a None bed to a chair ( including a wheelchair)? Standing up from a None chair using your arms? (e.g., wheelchair, bedside chair) Walking in hospital None room? Climbing 3-5 steps None with a railing? Mobility Score 24 Mobility Level [facility] Mobility 8 Walk 250 feet or more Mobility Calculator Rehab PT IP Eval Objective Appearance Patient Behavior Appropriate,Cooperative Patient Orientation Person,Place,Situation Difficulty following none instructions Speech Pattern Clear Ambulation Patient Able to Yes Ambulate Ambulation Observation IP General Gait No Deviations/Normal Pattern Observation Ambulation Distance 70 (feet) Ambulation Assistive None Device Ambulation Ability Independent Balance Ability to Arise Able, uses arms to help Sitting Balance Steady, safe Standing Balance Narrow stance w/o support Dynamic Sitting Good Balance Ability Dynamic Standing Good Balance Ability Transfers Bed Transfer Ability Independent Sit to Stand Bed Independent Transfer Ability Rehab PT IP prob,goals,plan Problems Date of Evaluation: 12/20/24 Rehab Potential Rehab Potential Innapropriate for Skilled Therapy Discharge Plan PT Discharge Plan Pt not appropriate for skilled acute care physical therapy as he is at his baseline/IND with mobility. Eval Complexity Eval Charge Codes 29413 - Moderate Complexity PHYSICIAN CERTIFICATION: I certify the specified therapy services for Archie Mosher are required, authorized, and reviewed every 30 days.
--- NOTE | 2024-12-20 09:47 | HMH.OTEV ---
OT Inpatient Evaluation Rehab OT IP Evaluation Start: 12/19/24 18:09 Freq: ONCE Status: Active Protocol: Document 12/20/24 09:39 KIM (Rec: 12/20/24 09:47 KIM [id number]) Rehab OT IP Assessment Subjective History Per HPI narrative: This patient is a 74-year-old male with a history of CAD status post stenting, paroxysmal atrial fibrillation on Eliquis, CHF with an EF of 30% as of September, LifeVest in place, COPD on 3 L nasal cannula, hypertension, hyperlipidemia presenting to the emergency department for evaluation with concern for left-sided pleuritic chest pain that was present when he woke up this morning. Patient states that he has sharp pain in the left chest anytime to take a deep breath. He took nitro at home without any improvement. He denies experiencing his like this in the past. He states that he was fine last night when he went to bed . He reports compliance with his home medications, including his Eliquis. He arrives by EMS who noted that he had soft pressures initially with systolics in the 90s, so they did not give pain medication or other intervention. They also did not give aspirin as the patient does not have teeth. They note that he otherwise was stable en route with good oxygen saturations on his home oxygen. Subjective I help my more than she helps me. Pt was supine in bed when therapy entered room. pt agreed to initial OT evaluation. Pt orient x3. Pt reported they live with and two grandchildren in single story home with 5 steps. Pt reported they have a ramp and have a chair on ramp if needed. Pt reported they have a w/c at home to use if needed. Pt typically does not use AD for functional mobility. Pt reported they still drive. Pt reported they are normally on 3L O2 at home, currently on 3L O2. Pt reported 1 fall in past 30 days. Pt reported they have a shower chair, grab bars, and raised toilet seat. pt reported ind in ADLs and can assist with IADLs. Pt reported they have an easy rest bed at home similar to a hospital bed. pt reports is there 25/01. Pt agreed to sit on EOB. pt SBA to go from supine to EOB. pt agreed to complete functional mobility task. Pt completed sit to stand transfer from EOB with CGA for safety. Pt then completed functional mobility task of 5 ft with CGA for safety. Pt then sat back on EOB. Pt reported they would like to stay in bed. Pt went from EOB to supine with SBA. pt left with call light and all other needs within reach. Objective Patient Orientation Person,Place,Birthday Right Upper WFL Extremity Gross ROM Left Upper Extremity WFL Gross ROM Bed Mobility bed mobility-scooting,bed mobility - supine/sit Assist Level Supervision/Stand by Transfer Training Sit/Stand Transfer Assist Level Contact Guard/Hand Hold Chair Transfer Contact Guard/Hand Hold Ability Chair Transfer Sit to/from Ambulatory Technique Chair Transfer None Assistive Devices Decrease in No Endurance Rehab OT IP prob,goals,plan Problems Date of Evaluation: 12/20/24 Rehab Potential Rehab Potential Innapropriate for Skilled Therapy Discharge Plan OT Discharge Plan At this time, pt is at baseline and would not benefit from skilled acute OT services and interventions. Pt has 24/ care as reported. If desired, pt could benefit from skilled OT services and interventions with Home Health to help build endurance, activity tolerance, and strength for optimal occupational performance. Eval Complexity Eval Charge Codes 70177 - Moderate Complexity PHYSICIAN CERTIFICATION: I certify the specified therapy services for Archie Mosher are required, authorized, and reviewed every 30 days.
--- NOTE | 2024-12-20 11:05 | P.DS_ITS ---
General Admission date:: 12/19/24 Discharge date: 12/20/24 HPI HPI HPI: Mr. Mosher is a 74-year-old male with COPD, chronic hyponatremia, ptosis of the lungs, HFrEF, failure to thrive, A-fib, with LifeVest in place. Chronic oxygen requirement of 3 L. Was admitted to our facility a few months ago with similar presentation to today. States that he was at home and developed worsening pain over the past day or 2 in his left lower chest/rib cage. Worse with each breath. Denies any palpitations, nausea, vomiting. He did try nitro at home prior to coming to the ER with no benefit. Denies experience this pain devious NC. Reports taking his medications at home including Eliquis. Denies any fever. Workup in the ER concern for respiratory acidosis. Labs with normal white count of 9.0, hemoglobin 13.6. Kidney function at baseline BUN 30, creatinine 0.5. Sodium low at 123 consistent with chronic hyponatremia. Elevated bicarb/carbon dioxide at 31. Blood gas with VBG showing respiratory acidosis. Medicine consulted for admission of left-sided chest pain/pleuritic pain and respiratory acidosis. I agreed to admit for further care. On my evaluation, patient is worn BiPAP for few hours and is doing better. Patient tolerating 3 to 4 L oxygen upon arrival to the floor. Alert and oriented x 4. Stating pain is somewhat better since receiving some meds in the ER. States he is hungry. Hospital Course Hospital Course Hospital Course: Mr. Mosher is a 74-year-old male with multiple comorbidities including CHF, COPD, paroxysmal A-fib. Presented with worsening left sided chest pain. Found to be hypercapnic. Discussed case with ER physician, request admission for further management and treatment of his acute on chronic hypercapnic respiratory failure. I agreed to admit for further treatment. Was initiated on BiPAP but improved rapidly. Able to wean to nasal cannula oxygen. Pulmonology consulted to assist with care. Feeling better by morning and able to discharge home with further management as an outpatient. Patient should have been observation status from the start. Problems addressed as follows: Tolerating BiPAP with improving VBG. Pulmonology consulted to assist with care. Problems addressed as follows: #Acute on chronic hypoxic respiratory failure with hypercapnia # COPD exacerbation #Reactive airway disease ? Initial VBG showing hypercapnic respiratory failure, improving with BiPAP. Weaned to nasal cannula oxygen within 12 hours of admission. Pulmonology consulted and evaluated in the morning. CTA chest revealed improvements from pneumonia 3 months ago. Received antibiotics in the ED with amoxicillin and azithromycin. Will continue azithromycin 500 mg daily for 5 days more for anti- inflammatory component than infection. Treated with DuoNebs and budesonide. White count normal during admission. Overall doing better in the morning. White count 6.8. Hemoglobin 13. Continue home Trelegy inhaler and DuoNebs 4 times a day as needed. Continue prednisone 40 mg daily for 5 days. After discussion with pulmonology, patient would benefit from evaluation for noninvasive positive pressure ventilation as an outpatient. Based on his recurrent hypercarbic episodes, will need evaluation for possible BiPAP. #Chest pain #HFrEF, chronic #Severe right heart failure, cor pulmonale #History of NSTEMI with stent to RCA ? During last visit, echo obtained showing reduced ejection fraction. Currently has LifeVest on. Will continue at this time. Does not appear volume overloaded at this time. Blood pressure soft, home heart failure meds held due to soft blood pressures. Blood pressure remains soft with systolics 80s to 90s on day of discharge. Will continue to hold Entresto at time of discharge. Defer resumption to cardiology with outpatient follow-up. 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 Patient continues to have soft pressures, making it challenging to start GDMT. #Chronic hyponatremia ? Sodium 123 on presentation. Baseline in the 120s. Improved to 127 by morning of discharge. Holding sodium tablets in the setting of heart failure. Total time spent on discharge 32 minutes in counseling, documentation, chart review, and direct care with patient. Exam Data for Last 24 hours Vital signs and Labs for Last 24 Hours: Temp Pulse Resp BP Pulse Ox O2 Del Method O2 Flow Rate 98.1 F 94 H 24 90/50 L 100 Nasal Cannula 2 12/20/24 04:00 12/20/24 09:35 12/20/24 04:00 12/20/24 08:58 12/20/24 06:14 12/20/24 09:00 12/20/24 09:00 FiO2 35 12/20/24 02:00 Laboratory Results - last 24 hr 12/19/24 11:08: WBC 9.0, RBC 4.64, Hgb 13.6 L, Hct 41.0 L, MCV 88.4, MCH 29.3, MCHC 33.2, RDW 13.2, Plt Count 240, MPV 9.7, Neut % (Auto) 74.8, Lymph % (Auto) 16.8, [place] % (Auto) 6.9, Eos % (Auto) 0.9, Baso % (Auto) 0.4, Neut # (Auto) 6.7, Lymph # (Auto) 1.5, [place] # (Auto) 0.6, Eos # (Auto) 0.1, Baso # (Auto) 0.0, PT 11.2, INR 1.01, APTT 31.9 H, Sodium 123 L, Potassium 4.5, Chloride 88 L, Carbon Dioxide 31 H, Anion Gap 8.5, BUN 3 L, Creatinine 0.50 L, Estimated Creat Clear 54, Estimated GFR 163, Est GFR ( Amer) 197, Glucose 82, Calcium 9.3, Total Bilirubin 0.9, AST 32, ALT 14, Alkaline Phosphatase 57, Troponin I 0.01, Total Protein 7.3, Albumin 4.3, Globulin 3.0, Albumin/Globulin Ratio 1.4 12/19/24 11:31: VBG pH 7.29 L, VBG pCO2 61.6 H, VBG pO2 31.8, VBG HCO3 28.6, VBG Total CO2 30.5 H, VBG O2 Saturation 54.7, VBG Base Excess 2.0, VBG Lactic Acid 2.1 H 12/19/24 13:51: Troponin I < 0.01 12/19/24 14:45: VBG pH 7.21 L, VBG pCO2 72.1 H, VBG pO2 42.8 H, VBG HCO3 28.4, VBG Total CO2 30.7 H, VBG O2 Saturation 69.0, VBG Base Excess 0.6, VBG Lactic Acid 1.3 12/19/24 15:39: Lactate 2.3 H 12/19/24 16:39: Chlamy pneumoniae PCR Not detected, Adenovirus (PCR) Not detected, B. pertussis DNA (PCR) Not detected, Coronavirus OC43 (PCR) Not detected, Coronavirus HKU1 (PCR) Not detected, Coronavirus 229E (PCR) Not detected, SARS-CoV-2 (PCR) Not detected, Coronavirus NL63 (PCR) Not detected, Human Metapneumovir PCR Not detected, Influenza A (H1) PCR Not detected, Influ A (H1N1/09) PCR Not detected, Influenza A (H3) PCR Not detected, Influenza Type A (PCR) Not detected, Influenza Type B (PCR) Not detected, M. pneumoniae (PCR) Not detected, Parainfluenza 1 (PCR) Not detected, Parainfluenza 2 (PCR) Not detected, Parainfluenza 3 (PCR) Not detected, Parainfluenza 4 (PCR) Not detected, RSV (PCR) Not detected, Entero/Rhino (PCR) Not detected 12/19/24 16:55: VBG pH 7.25 L, VBG pCO2 61.6 H, VBG pO2 44.3 H, VBG HCO3 26.4, VBG Total CO2 28.3 H, VBG O2 Saturation 74.5 H, VBG Base Excess -0.8, VBG Lactic Acid 2.3 H 12/19/24 17:50: Lactate 2.5 H, Troponin I < 0.01 12/20/24 05:27: WBC 6.8, RBC 4.44 L, Hgb 13.0 L, Hct 39.4 L, MCV 88.7, MCH 29.3, MCHC 33.0, RDW 13.1, Plt Count 196, MPV 9.8, Neut % (Auto) 91.1 H, Lymph % (Auto) 6.4 L, [place] % (Auto) 2.1, Eos % (Auto) 0.0 L, Baso % (Auto) 0.1, Neut # (Auto) 6.2, Lymph # (Auto) 0.4 L, [place] # (Auto) 0.1, Eos # (Auto) 0.0, Baso # (Auto) 0.0, Total Counted 100, Neutrophils % (Manual) 94 H, Lymphocytes % (Manual) 4 L, Monocytes % (Manual) 1 L, Basophils % (Manual) 1.0, Platelet Estimate Normal, RBC Morphology Normal, Sodium 127 L, Potassium 4.9, Chloride 92 L, Carbon Dioxide 33 H, Anion Gap 6.9, BUN 8 L D, Creatinine 0.50 L, Estimated Creat Clear 53, Estimated GFR 163, Est GFR ( Amer) 197, Glucose 139 H D, Calcium 8.7, Magnesium 1.6, Total Bilirubin 0.5, AST 23 D, ALT 14, Alkaline Phosphatase 60, Total Protein 6.4, Albumin 3.6 D, Globulin 2.8, Albumin/Globulin Ratio 1.3 12/20/24 08:55: VBG pH 7.30 L, VBG pCO2 56.9 H, VBG pO2 35.2, VBG HCO3 27.4, VBG Total CO2 29.1 H, VBG O2 Saturation 64.6, VBG Base Excess 0.9, VBG Lactic Acid 4.0 H I & O for Last 24 hours: Intake & Output 12/17/24 12/18/24 12/19/24 12/20/24 23:59 23:59 23:59 23:59 Intake Total 100 / 100 420 / 420 Output Total 1600 / 1800 1050 / 1050 Balance -1500 / -1700 -630 / -630 Weight 60.47 kg 58.196 kg Constitutional Constitutional: no acute distress, cachectic, chronically ill appearing and cooperative *Routine HEENT Exam Head: Present normocephalic Eye: Present EOMI and PERRL ENT: Present mucous membranes moist *Routine Neck Exam Neck: Present supple; Absent lymphadenopathy *Routine Respiratory Exam Respiratory: Present prolonged expiratory phase, wheezes and normal respiratory effort; Absent rhonchi or crackles *Routine Cardiovascular Exam Cardiovascular: Present RRR *Routine Abdominal Exam Abdominal: Present soft and normoactive bowel sounds; Absent tenderness *Routine Rectal Exam Patient deferred: visual exam *Routine Exam Patient deferred: penile exam *Routine Extremities Exam Extremities: Present edema; Absent cyanosis or clubbing Comments: Bilateral lower extremity 1+ pitting edema. *Routine Skin Exam Skin: Present intact and warm; Absent rash *Routine Neurological Exam Neurological: Present alert, oriented X3 and moving all extremities; Absent altered mental status Results Data Completed and Pending Labs on day of discharge: Labs from last 24 hours 12/20/24 12/20/24 12/19/24 08:55 05:27 17:50 WBC 6.8 RBC 4.44 L Hgb 13.0 L Hct 39.4 L MCV 88.7 MCH 29.3 MCHC 33.0 RDW 13.1 Plt Count 196 MPV 9.8 Neut % (Auto) 91.1 H Lymph % (Auto) 6.4 L [place] % (Auto) 2.1 Eos % (Auto) 0.0 L Baso % (Auto) 0.1 Neut # (Auto) 6.2 Lymph # (Auto) 0.4 L [place] # (Auto) 0.1 Eos # (Auto) 0.0 Baso # (Auto) 0.0 Total Counted 100 Neutrophils % (Manual) 94 H Lymphocytes % (Manual) 4 L Monocytes % (Manual) 1 L Basophils % (Manual) 1.0 Platelet Estimate Normal RBC Morphology Normal PT INR APTT VBG pH 7.30 L VBG pCO2 56.9 H VBG pO2 35.2 VBG HCO3 27.4 VBG Total CO2 29.1 H VBG O2 Saturation 64.6 VBG Base Excess 0.9 VBG Lactic Acid 4.0 H Sodium 127 L Potassium 4.9 Chloride 92 L Carbon Dioxide 33 H Anion Gap 6.9 BUN 8 L D Creatinine 0.50 L Estimated Creat Clear 53 Estimated GFR 163 Est GFR ( Amer) 197 Glucose 139 H D Lactate 2.5 H Calcium 8.7 Magnesium 1.6 Total Bilirubin 0.5 AST 23 D ALT 14 Alkaline Phosphatase 60 Troponin I < 0.01 Total Protein 6.4 Albumin 3.6 D Globulin 2.8 Albumin/Globulin Ratio 1.3 Chlamy pneumoniae PCR Adenovirus (PCR) B. pertussis DNA (PCR) Coronavirus OC43 (PCR) Coronavirus HKU1 (PCR) Coronavirus 229E (PCR) SARS-CoV-2 (PCR) Coronavirus NL63 (PCR) Human Metapneumovir PCR Influenza A (H1) PCR Influ A (H1N1/09) PCR Influenza A (H3) PCR Influenza Type A (PCR) Influenza Type B (PCR) M. pneumoniae (PCR) Parainfluenza 1 (PCR) Parainfluenza 2 (PCR) Parainfluenza 3 (PCR) Parainfluenza 4 (PCR) RSV (PCR) Entero/Rhino (PCR) 12/19/24 12/19/24 12/19/24 16:55 16:39 15:39 WBC RBC Hgb Hct MCV MCH MCHC RDW Plt Count MPV Neut % (Auto) Lymph % (Auto) [place] % (Auto) Eos % (Auto) Baso % (Auto) Neut # (Auto) Lymph # (Auto) [place] # (Auto) Eos # (Auto) Baso # (Auto) Total Counted Neutrophils % (Manual) Lymphocytes % (Manual) Monocytes % (Manual) Basophils % (Manual) Platelet Estimate RBC Morphology PT INR APTT VBG pH 7.25 L VBG pCO2 61.6 H VBG pO2 44.3 H VBG HCO3 26.4 VBG Total CO2 28.3 H VBG O2 Saturation 74.5 H VBG Base Excess -0.8 VBG Lactic Acid 2.3 H Sodium Potassium Chloride Carbon Dioxide Anion Gap BUN Creatinine Estimated Creat Clear Estimated GFR Est GFR ( Amer) Glucose Lactate 2.3 H Calcium Magnesium Total Bilirubin AST ALT Alkaline Phosphatase Troponin I Total Protein Albumin Globulin Albumin/Globulin Ratio Chlamy pneumoniae PCR Not detected Adenovirus (PCR) Not detected B. pertussis DNA (PCR) Not detected Coronavirus OC43 (PCR) Not detected Coronavirus HKU1 (PCR) Not detected Coronavirus 229E (PCR) Not detected SARS-CoV-2 (PCR) Not detected Coronavirus NL63 (PCR) Not detected Human Metapneumovir PCR Not detected Influenza A (H1) PCR Not detected Influ A (H1N1/09) PCR Not detected Influenza A (H3) PCR Not detected Influenza Type A (PCR) Not detected Influenza Type B (PCR) Not detected M. pneumoniae (PCR) Not detected Parainfluenza 1 (PCR) Not detected Parainfluenza 2 (PCR) Not detected Parainfluenza 3 (PCR) Not detected Parainfluenza 4 (PCR) Not detected RSV (PCR) Not detected Entero/Rhino (PCR) Not detected 12/19/24 12/19/24 12/19/24 14:45 13:51 11:31 WBC RBC Hgb Hct MCV MCH MCHC RDW Plt Count MPV Neut % (Auto) Lymph % (Auto) [place] % (Auto) Eos % (Auto) Baso % (Auto) Neut # (Auto) Lymph # (Auto) [place] # (Auto) Eos # (Auto) Baso # (Auto) Total Counted Neutrophils % (Manual) Lymphocytes % (Manual) Monocytes % (Manual) Basophils % (Manual) Platelet Estimate RBC Morphology PT INR APTT VBG pH 7.21 L 7.29 L VBG pCO2 72.1 H 61.6 H VBG pO2 42.8 H 31.8 VBG HCO3 28.4 28.6 VBG Total CO2 30.7 H 30.5 H VBG O2 Saturation 69.0 54.7 VBG Base Excess 0.6 2.0 VBG Lactic Acid 1.3 2.1 H Sodium Potassium Chloride Carbon Dioxide Anion Gap BUN Creatinine Estimated Creat Clear Estimated GFR Est GFR ( Amer) Glucose Lactate Calcium Magnesium Total Bilirubin AST ALT Alkaline Phosphatase Troponin I < 0.01 Total Protein Albumin Globulin Albumin/Globulin Ratio Chlamy pneumoniae PCR Adenovirus (PCR) B. pertussis DNA (PCR) Coronavirus OC43 (PCR) Coronavirus HKU1 (PCR) Coronavirus 229E (PCR) SARS-CoV-2 (PCR) Coronavirus NL63 (PCR) Human Metapneumovir PCR Influenza A (H1) PCR Influ A (H1N1/09) PCR Influenza A (H3) PCR Influenza Type A (PCR) Influenza Type B (PCR) M. pneumoniae (PCR) Parainfluenza 1 (PCR) Parainfluenza 2 (PCR) Parainfluenza 3 (PCR) Parainfluenza 4 (PCR) RSV (PCR) Entero/Rhino (PCR) 12/19/24 11:08 WBC 9.0 RBC 4.64 Hgb 13.6 L Hct 41.0 L MCV 88.4 MCH 29.3 MCHC 33.2 RDW 13.2 Plt Count 240 MPV 9.7 Neut % (Auto) 74.8 Lymph % (Auto) 16.8 [place] % (Auto) 6.9 Eos % (Auto) 0.9 Baso % (Auto) 0.4 Neut # (Auto) 6.7 Lymph # (Auto) 1.5 [place] # (Auto) 0.6 Eos # (Auto) 0.1 Baso # (Auto) 0.0 Total Counted Neutrophils % (Manual) Lymphocytes % (Manual) Monocytes % (Manual) Basophils % (Manual) Platelet Estimate RBC Morphology PT 11.2 INR 1.01 APTT 31.9 H VBG pH VBG pCO2 VBG pO2 VBG HCO3 VBG Total CO2 VBG O2 Saturation VBG Base Excess VBG Lactic Acid Sodium 123 L Potassium 4.5 Chloride 88 L Carbon Dioxide 31 H Anion Gap 8.5 BUN 3 L Creatinine 0.50 L Estimated Creat Clear 54 Estimated GFR 163 Est GFR ( Amer) 197 Glucose 82 Lactate Calcium 9.3 Magnesium Total Bilirubin 0.9 AST 32 ALT 14 Alkaline Phosphatase 57 Troponin I 0.01 Total Protein 7.3 Albumin 4.3 Globulin 3.0 Albumin/Globulin Ratio 1.4 Chlamy pneumoniae PCR Adenovirus (PCR) B. pertussis DNA (PCR) Coronavirus OC43 (PCR) Coronavirus HKU1 (PCR) Coronavirus 229E (PCR) SARS-CoV-2 (PCR) Coronavirus NL63 (PCR) Human Metapneumovir PCR Influenza A (H1) PCR Influ A (H1N1/) PCR Influenza A (H3) PCR Influenza Type A (PCR) Influenza Type B (PCR) M. pneumoniae (PCR) Parainfluenza 1 (PCR) Parainfluenza 2 (PCR) Parainfluenza 3 (PCR) Parainfluenza 4 (PCR) RSV (PCR) Entero/Rhino (PCR) DS: Diagnosis Discharge Diagnosis (1) Acute on chronic respiratory failure with hypoxia and hypercapnia: Status: Acute Code(s): J96.21 - Acute and chronic respiratory failure with hypoxia; J96.22 - Acute and chronic respiratory failure with hypercapnia (2) Chronic hyponatremia: Status: Acute Code(s): E87.1 - Hypo-osmolality and hyponatremia (3) Acute exacerbation of chronic obstructive pulmonary disease: Status: Acute Code(s): J44.1 - Chronic obstructive pulmonary disease with (acute) exacerbation (4) HFrEF (heart failure with reduced ejection fraction): Status: Acute Code(s): I50.20 - Unspecified systolic (congestive) heart failure (5) Atrial fibrillation: Status: Acute Code(s): I48.91 - Unspecified atrial fibrillation Meds Home Medications and Allergies Home Medications ?Medication ?Instructions ?Recorded ?Confirmed ?Type albuterol sulfate 90 mcg/actuation 2 puff inhalation Q 4HP PRN 10/22/22 12/20/24 History aerosol inhaler Shortness of air apixaban 5 mg tablet 5 mg PO BID 10/22/22 5 History fluticasone fur. 100 mcg-umeclid 1 inh inhalation ZECHARIAH Y 30 days #60 09/05/24 12/20/24 Rx 62.5 mcg-vilant 25 mcg ea inhalat.powder (Trelegy Ellipta) furosemide 40 mg tablet 40 mg PO DAILY 30 days #30 t abs 09/05/24 12/20/24 Rx sacubitril 24 mg-valsartan 26 mg 1 tab PO BID 15 days #30 tabs 09/16/24 12/20/24 Rx tablet (Entresto) Held on 12/20/24. Instructions: due to low blood pressure, until see cardiology for follow-up azithromycin 500 mg tablet 500 mg PO Q24H 3 days #3 ta bs 12/20/24 Rx prednisone 20 mg tablet 40 mg (2 x 20 mg) PO DAILY 4 days 12/21/24 Rx #8 tabs New Prescriptions to Start Prescriptions: azithromycin Macario Turner prednisone Macario Turner Allergies Allergy/AdvReac Type Severity Reaction Status Date / Time No Known Allergies Allergy Verified 09/18/24 09:31 Discharge Plan Disposition Patient Disposition: Home, Self-Care Condition: Fair Follow up Plan Follow up with: Provider,ReferralMD [Primary Care Provider, Medical] - Enter time for follow up Saeid Argueta MD [Physician, Pulmonology] - 01/12/25 11:00 am Prescriptions/Medication Reconciliation: New azithromycin 500 mg tablet 500 mg PO Q24H 3 Days Qty: 3 0RF prednisone 20 mg tablet 40 mg PO DAILY 4 Days Qty: 8 0RF Continued albuterol sulfate 90 mcg/actuation Hfa Aerosol Inhaler 2 puff INHALATION Q4HP PRN (Reason: Shortness of air) apixaban 5 mg Tablet 5 mg PO BID Trelegy Ellipta 100-62.5-25 mcg Blister With Device 1 inh inhalation DAILY 30 Days Qty: 60 0RF furosemide 40 mg Tablet 40 mg PO DAILY 30 Days Qty: 30 0RF Held Entresto 24-26 mg tablet 1 tab PO BID 15 Days Qty: 30 0RF Hold Instructions: due to low blood pressure, until see cardiology for follow-up Discontinued sodium chloride 1,000 mg Tablet,Soluble 500 mg PO BID 30 Days Qty: 60 0RF Problem Reconciliation Problems Reviewed?: Yes Patient Discharge Instructions ACTIVITY: Continue current activity DIET: continue same diet Patient Instructions: DI for Chronic Obstructive Pulmonary Disease, DI for Pneumonia -- Adult, DI for Respiratory Failure, Stop Light Pneumonia, Stop Light COPD, Stop Light Infection Print Language: [place] Providers Primary Care Provider: Provider,Referral Admit Provider: Macario Turner Attending Provider: Macario Turner
[2024-12-20] MEDS: MAGNESIUM SULFATE IN WATER 2 GM/50 ML PIGGYBACK IV (11:18)
[2024-12-20 13:04] LABS: Reflex Lactic Add Lactic Reflex
[2024-12-20 13:40] LABS: Lactic Acid Follow Up (RFLX 1) 2.3 mmol/L (0.7-2.1)
[2024-12-20 15:20] LABS: Reflex Lactic (2 hrs) Add Lactic Reflex
== END 2024-12-20 15:57 | disposition home or self-care (01) ==
LOC: ER 14:56 → 2ND 19:25
PROVIDERS: Emergency Medicine; Internal Medicine Pulmonary Disease; Admitting Provider Internal Medicine Adolescent Medicine; Emergency Provider Emergency Medicine; Visit Provider Internal Medicine Adolescent Medicine
DX: J96.22 Acute and chronic respiratory failure with hypercapnia (principal); J96.21 Acute and chronic respiratory failure with hypoxia; Z99.81 Dependence on supplemental oxygen; E87.1 Hypo-osmolality and hyponatremia; J44.1 Chronic obstructive pulmonary disease with (acute) exacerbation; I27.81 Cor pulmonale (chronic); I11.0 Hypertensive heart disease with heart failure; I50.20 Unspecified systolic (congestive) heart failure; I25.2 Old myocardial infarction; I48.0 Paroxysmal atrial fibrillation; E87.29 Other acidosis; Z95.5 Presence of coronary angioplasty implant and graft; Z87.891 Personal history of nicotine dependence; Z79.82 Long term (current) use of aspirin; Z79.01 Long term (current) use of anticoagulants; Z79.02 Long term (current) use of antithrombotics/antiplatelets; D64.9 Anemia, unspecified
CPT/HCPCS: 96365; 96375; 0223U; 36415; 71275; 80053; 82803; 83605; 83735; 84484; 85007; 85025; 85027; 85610; 85730; 87070; 87205; 87633; 93005; 94640; 97162; 97166; G0378; J1885; J2270; J2405; J2919; J3475; Q9967

== ENCOUNTER 2025-02-07 08:57 | Emergency (ER) | payer OTHER, SELFPAY ==
[2025-02-07] VITALS (8 sets, daily range): BP systolic 113–156; BP diastolic 53–105; PULSE 56–94; RESP 13–20; TEMP 36.7–36.9; O2SAT 88–100; BMI 19.8
--- NOTE | 2025-02-07 09:01 | ECG_ITS ---
APPROVED REPORT Exam: Resting ECG HR:80 bpm ECG Measurements Heart Rate 80 AXES [place] 189 P 76 QRSd 153 QRS 47 QT 409 T 243 QTc 445 Conclusion SINUS RHYTHM POSSIBLE LEFT ATRIAL ENLARGEMENT [-0.1mV P-WAVE IN V1/V2] LEFT BUNDLE BRANCH BLOCK [120+ ms QRS DURATION, 80+ ms Q/S IN V1/V2, 85+ ms R IN I/aVL/V5/V6] ABNORMAL ECG Electronically signed by : ESTELITA TOWNSEND, 02/15/2025 21:59:12
--- NOTE | 2025-02-07 09:02 | ED_ITS ---
Discharge Plan Disposition Patient Disposition: Home, Self-Care Condition: Good Prescriptions Prescriptions: No Action albuterol sulfate 90 mcg/actuation Hfa Aerosol Inhaler 2 puff INHALATION Q4HP PRN (Reason: Shortness of air) apixaban 5 mg Tablet 5 mg PO BID azithromycin 500 mg tablet 500 mg PO Q24H 3 Days Qty: 3 0RF prednisone 20 mg tablet 40 mg PO DAILY 4 Days Qty: 8 0RF Trelegy Ellipta 100-62.5-25 mcg Blister With Device 1 inh inhalation DAILY 30 Days Qty: 60 0RF furosemide 40 mg Tablet 40 mg PO DAILY 30 Days Qty: 30 0RF Entresto 24-26 mg tablet 1 tab PO BID 15 Days Qty: 30 0RF Referrals Follow up/Referrals: Provider,Referral, MD [Primary Care Provider, Medical] - See instructions Activity Restrictions/Add. Instructions Additional Instructions/Restrictions: You were seen in the emergency department for shortness of breath and chest pain. I believe that this is due to a COPD exacerbation. Please use your albuterol inhaler every 4 hours for the next 2 to 3 days. Please follow-up with your tube test technician and your PCP. If symptoms worsen, new symptoms develop, please return to the emergency department. Clinical Impressions Clinical Impression: Acute exacerbation of chronic obstructive pulmonary disease Instructions Patient Instructions: Chronic Obstructive Pulmonary Disease Print Language Print Language: Burundian Discharge ED Provider: Jermain Fontaine HPI General Chief Complaint: Chest Pain Stated Complaint: CP Time Seen by Provider: 02/07/25 09:02 History of Present Illness HPI narrative: Mr. Mosher is a 74-year-old male with past medical history of COPD, emphysema, multiple episodes of coronary artery disease status post stenting, spontaneous pneumothorax who presents to the emergency department with acute onset left- sided chest pain. Patient reports that symptoms began last night and increased this morning. The patient points to the left 11th/12th rib when asked to indicate the source of the pain. He does not describe it as worsening on deep inhale. The patient wears 3 L nasal cannula at home, and is currently on his home O2 setting. He has no swelling of the leg bilaterally. The patient says that his symptoms are not similar to heart attacks that he has had in the past, but the pain was persistent enough that he became worried Related Data Home Medications ?Medication ?Instructions ?Recorded ?Confirmed albuterol sulfate 90 mcg/actuation 2 puff inhalation Q 4HP PRN 10/22/22 12/20/24 aerosol inhaler Shortness of air apixaban 5 mg tablet 5 mg PO BID 10/22/22 5 Previous Rx's ?Medication ?Instructions ?Recorded fluticasone fur. 100 mcg-umeclid 1 inh inhalation ZECHARIAH Y 30 days #60 09/05/24 62.5 mcg-vilant 25 mcg ea inhalat.powder (Trelegy Ellipta) furosemide 40 mg tablet 40 mg PO DAILY 30 days #30 t abs 09/05/24 sacubitril 24 mg-valsartan 26 mg 1 tab PO BID 15 days #30 tabs 09/16/24 tablet (Entresto) Held on 12/20/24. Instructions: due to low blood pressure, until see cardiology for follow-up azithromycin 500 mg tablet 500 mg PO Q24H 3 days #3 ta bs 12/20/24 prednisone 20 mg tablet 40 mg (2 x 20 mg) PO DAILY 4 days 12/21/24 #8 tabs Allergies Allergy/AdvReac Type Severity Reaction Status Date / Time No Known Allergies Allergy Verified 09/18/24 09:31 [facility] Disclaimer: The information contained in this section may have been updated after the patient was seen, as this information can be updated by other users. Medical History Supplemental oxygen dependent Acute hypotension Adult failure to thrive Elevated bilirubin Elevated troponin Acute on chronic respiratory failure with hypoxia and hypercapnia Leukocytosis Pleural effusion Traumatic hematoma of head Fall Pneumonia Acute respiratory failure with hypoxemia Acute exacerbation of chronic obstructive pulmonary disease Chest pain Acute exacerbation of chronic obstructive pulmonary disease Abnormal electrocardiogram [ECG] [EKG] Chest pain Shortness of breath Tension pneumothorax Right upper lobe pulmonary nodule Dyspnea Increasing shortness of breath Acute hyponatremia Low back pain Congestive heart failure Hyponatremia Atrial fibrillation Hyponatremia COPD (chronic obstructive pulmonary disease) with acute bronchitis Sepsis HFrEF (heart failure with reduced ejection fraction) Pneumonia Non-ST elevation [place] (NSTEMI) Coronary artery disease Diastolic dysfunction HLD (hyperlipidemia) Hypertension Pulmonary emphysema Fibrosis of lung COPD exacerbation Dyspnea on exertion Bilateral carotid artery stenosis Swelling of right upper extremity Cardiomyopathy Surgical History H/O hernia repair Family History Other Colorectal cancer Social History Smoking Status: Never smoker alcohol intake: current alcohol intake frequency: holidays/special occasions only current occupational status: employed Travel in the last 8 weeks?: None household members: spouse 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 [employer] caffeine: No Have you lived/traveled outside [place] in past 30 days?: No Contact w/someone who lives/traveled outside US past 30 days?: No Exposure to someone with infectious disease in past 14 days?: No Do you have a fever (greater than 100.4 F or 38 C)?: No Have you tested positive for COVID-19?: No Exposed to someone with COVID-19 in past 14 days?: No Do you have a sore throat?: No Do you have a cough?: No Do you have any weakness?: No Do you have any diarrhea?: No Are you experiencing any unusual bleeding?: No Do you have any muscle aches/pain?: No Do you have any abdominal pain?: No Are you experiencing loss of taste or smell?: No Other Medical History Have you received the Flu Vaccine for this season: No Have you received the Pneumonia Vaccine: No ROS Obtained: Yes All systems reviewed & no additional complaints except as documented Physical Exam General General appearance: alert and in no apparent distress Respiratory Respiratory exam: Present wheezes, accessory muscle use and prolonged expiratory phase Cardiovascular Cardiovascular exam: Present regular rate and normal rhythm Neurological Exam Neurological exam: Present alert and oriented X3 HEART Score HEART Score HEART Score assessment performed?: Yes History (anamnesis): Slightly suspicious ECG: Normal Age: >65 years Risk factors: 3 or more risk factors Troponin: </= normal limit HEART Score: 4 Critical Care Critical Care Time Critical Care Time: No Medical Decision Making Maninder Inquiry Pt receiving controlled substance: No Maninder was queried for this patient: No Vital Signs Vital Signs: 02/07/25 09:05 02/07/25 09:30 02/07/25 10:01 Temperature 98.4 F Temperature Source Oral Pulse Rate 56 L 73 Pulse Rate [Right Radial] 82 Respiratory Rate 20 13 13 Blood Pressure 118/70 130/67 Blood Pressure [Right Arm] 156/77 H Blood Pressure Mean [Right Arm] 103 Blood Pressure Source Blood Pressure Source [Right Arm] Automatic Cuff Blood Pressure Position Blood Pressure Position [Right Arm] Supine 02 Sat by Pulse Oximetry 95 88 L 100 Oxygen Delivery Method Nasal Cannula Nasal Cannula Nasal Cannula Oxygen Flow Rate (LPM) 3 3 3 02/07/25 10:30 02/07/25 11:00 02/07/25 11:31 Temperature Temperature Source Pulse Rate 73 76 92 H Pulse Rate [Right Radial] Respiratory Rate 14 14 16 Blood Pressure 120/59 L 118/66 132/66 Blood Pressure [Right Arm] Blood Pressure Mean [Right Arm] Blood Pressure Source Blood Pressure Source [Right Arm] Blood Pressure Position Blood Pressure Position [Right Arm] 02 Sat by Pulse Oximetry 97 91 L 89 L Oxygen Delivery Method Nasal Cannula Oxygen Flow Rate (LPM) 3 02/07/25 12:00 02/07/25 13:03 Temperature 98.0 F Temperature Source Oral Pulse Rate 94 H 86 Pulse Rate [Right Radial] Respiratory Rate 15 19 Blood Pressure 120/105 H 113/53 L Blood Pressure [Right Arm] Blood Pressure Mean [Right Arm] Blood Pressure Source Automatic Cuff Blood Pressure Source [Right Arm] Blood Pressure Position Supine Blood Pressure Position [Right Arm] 02 Sat by Pulse Oximetry 91 L Oxygen Delivery Method Nasal Cannula Oxygen Flow Rate (LPM) 3 Lab Data Labs: Lab Results 02/07/25 09:00: WBC 6.2, RBC 4.51 L, Hgb 13.6 L, Hct 41.6 L, MCV 92.2, MCH 30.2, MCHC 32.7, RDW 14.3, Plt Count 183, MPV 9.6, Neut % (Auto) 62.9, Lymph % (Auto) 23.9, [place] % (Auto) 9.1, Eos % (Auto) 3.2, Baso % (Auto) 0.6, Neut # (Auto) 3.9, Lymph # (Auto) 1.5, [place] # (Auto) 0.6, Eos # (Auto) 0.2, Baso # (Auto) 0.0, Total Counted 100, Neutrophils % (Manual) 53, Band Neutrophils % 1.0, Lymphocytes % (Manual) 33, Monocytes % (Manual) 7, Eosinophils % (Manual) 6 H, Platelet Estimate Normal, RBC Morphology Normal, Sodium 124 L, Potassium 4.5, C hloride 88 L, Carbon Dioxide 32 H, Anion Gap 8.5, BUN 6 L, Creatinine 0.40 L, Estimated Creat Clear 57, Estimated GFR 210, Est GFR ( Amer) 254, Glucose 116 H, Calcium 8.6, Total Bilirubin 0.9, AST 28, ALT 13, Alkaline Phosphatase 70, Troponin I < 0.01, NT-Pro-B Natriuret Pep 3110 H, Total Protein 7.3, Albumin 4.5, Globulin 2.8, Albumin/Globulin Ratio 1.6, Lipase 20 L 02/07/25 09:19: SARS-CoV-2 (PCR) Not detected, Influenza A Untype (PCR) Not detected, Influenza Type B (PCR) Not detected 02/07/25 11:48: Troponin I < 0.01 02/07/25 09:00 02/07/25 09:00 Response Orders (Tests/Meds): ED MEDICATIONS Discontinued Medications Generic Name Dose Route Start Last Admin Trade Name Freq PRN Reason Stop Dose Admin Albuterol/Ipratropium 3 ml 02/07/25 09:15 02/07/25 09:24 Ipratropium/Albuterol 3 Ml [facility] 03/09/25 09:14 3 ml Q1H JUVE Administration Albuterol/Ipratropium 6 ml 02/07/25 10:00 02/07/25 10:05 Ipratropium/Albuterol 3 Ml [facility] 02/07/25 10:01 6 ml ONCE ONE Administration Aspirin 325 mg 02/07/25 09:12 02/07/25 09:24 Aspirin 325mg Tablet PO 02/07/25 09:13 325 mg ONCE ONE Administration Morphine Sulfate 4 mg 02/07/25 09:12 02/07/25 09:24 Morphine 4mg/Ml Syringe IV 02/07/25 09:13 4 mg ONCE ONE Administration Nitroglycerin 0.4 mg 02/07/25 09:12 02/07/25 09:31 Nitroglycerin 0.4mg Sl Tablet SL 02/07/25 09:13 Not Given ONCE ONE ORDERS Category Date Time Status CXR --portable [XR chest portable] Stat Exams 02/07/25 09:08 Completed BNP [NT Pro Brain Natriuretic Pep.] Stat Lab 02/07/25 09:00 Completed CBC Man Diff [Complete Blood Count Man Dif] Stat Lab 02/07/25 09:00 Completed CMP [Comprehensive Metabolic Panel] Stat Lab 02/07/25 09:00 Completed Lipase Stat Lab 02/07/25 09:00 Completed Rapid PCR Covid and Flu A/B Stat Lab 02/07/25 09:19 Completed Troponin I Q3H Lab 02/07/25 11:48 Completed Troponin I Stat Lab 02/07/25 09:00 Completed MDM Narrative Medical Decision Narrative: This patient was seen in the emergency department for left lower chest pain and shortness of breath. He has a past medical history of COPD, emphysema, coronary artery disease status post stenting. On initial evaluation the patient was hemodynamically stable, mildly tachypneic, uncomfortable appearing. Differential diagnosis included ACS, [place], pulmonary embolism, pneumonia, COPD exacerbation, rib fracture, shingles. Based on these concerns I made the decision to perform a comprehensive laboratory and imaging workup. EKG personally interpreted by me showed known left bundle branch block with no acute ST changes. This EKG was compared to previous EKGs and showed no acute abnormalities. Chest x-ray personally interpreted by me showed bilateral fibrotic changes consistent with known emphysema and COPD. Laboratory workup personally interpreted by me showed mild anemia at baseline, no significant leukocytosis, no major metabolic abnormalities with the exception of mild hyperkalemia with no EKG changes. Based on his symptoms the patient was treated with morphine and DuoNebs. We offered nitroglycerin to the patient but he denied. After his initial breathing treatment the patient reported significant improvement in his symptoms. He reported reduction in pain, reduction in shortness of breath, reduction in coughing. We considered pulmonary embolism in this differential but by Wells criteria he was in the low risk category and so we elected not to order a D-dimer. We did consider treating his hyperkalemia but given that it was asymptomatic and we were giving him multiple albuterol treatments we did not feel he needed additional treatment for hyperkalemia. Given and results of his laboratory and imaging workup and the clinical history I think it is most likely the patient is suffering from a COPD exacerbation leading to increased coughing which is causing pain in the left lower ribs. The patient reported multiple times that he has had heart attacks in the past and he did not feel that the symptoms lined up with his previous myocardial infarction's. Given the total resolution of the patient's symptoms and largely negative lab workup we felt comfortable with discharged home. Based on a heart score of 4 we did offer cardiac observation to the patient but he said that he would prefer to be discharged home with plans to follow-up with his tube test technician within the next 48 hours.
--- OUTSIDE RECORDS SUMMARY | 2025-02-07 09:06 | XMS_ITS | Clinical Summary ---
Author Organization Healthcare Address [address] [place] [address] Care Team Providers Care Principal Quality Engineer Name Role Phone Unavailable Primary Care Provider [...] UKY-Zoster Vaccines (2 of 3) 10/09/2014 08/14/2014 [id number] Vaccine (3 - 2023- season) 2024 08/24/2020, 07/27/2020 UKY-DTaP,Tdap,and Td Vaccines (3 - Td or Tdap) 03/16/2024 03/16/2014, 03/16/2014, 02/01/2008 UKY-RSV Vaccine: 60+ Years or (1 - 1-dose 75+ series) 2025 UKY-Influenza Vaccine (#1) 03/05/202504/30, 04/24/2021, 04/10/2020, Additional history exists UKY-Pneumococcal Vaccine: [...] age to complete this topic Insurance [place] [id number] MEDICARE
--- NOTE | 2025-02-07 09:08 | XR_ITS ---
FINAL REPORT TECHNIQUE: Single view chest CLINICAL HISTORY: SOB FINDINGS: A single view of the chest was obtained. The heart and mediastinum are within normal limits. There are coarse interstitial opacities likely due to chronic fibrosis. Lungs are otherwise clear. There is no pneumothorax. IMPRESSION: Coarse interstitial opacities likely due to chronic fibrosis. Reviewed, Interpreted and Dictated by Fidel Garcia MD Transcribed by Ana Christensen Authenticated and [facility]
[2025-02-07 09:19] LABS: Hematocrit 41.6 % (42.0-52.0); Hemoglobin 13.6 g/dL (14.1-18.0); Mean Corpuscular HGB Conc 32.7 g/dL (31.8-35.4); Mean Corpuscular Hemoglobin 30.2 pg (27.0-31.2); Mean Corpuscular Volume 92.2 fl (80-94); Platelet Count 183 K/mm3 (142-424); Red Blood Count 4.51 M/mm3 (4.60-6.20); White Blood Count 6.2 K/mm3 (4.8-10.8)
[2025-02-07 09:24] LABS: Coronavirus 19, PCR Not Detected (NotDetected); Influenza A, PCR Not Detected (NotDetected); Influenza B, PCR Not Detected (NotDetected)
[2025-02-07 09:24] LABS: Albumin Level 4.5 g/dl (3.5-5.0); Chloride 88 mmol/L (98-107); Potassium 4.5 mmoL/L (3.5-5.1); Sodium 124 mmol/L (136-145)
[2025-02-07] MEDS: MORPHINE 4MG/ML SYRINGE 4 MG IV (09:24)
[2025-02-07] MEDS: ASPIRIN 325MG TABLET 325 MG PO (09:24)
[2025-02-07] MEDS: IPRATROPIUM/ALBUTEROL 3 ML NEB IH (09:24)
[2025-02-07 09:26] LABS: Blood Urea Nitrogen 6 mg/dl (9-20); Creatinine Clearance Estimated 57 mL/min (50-200); Creatinine,Serum 0.40 mg/dl (0.66-1.25); Estimated Glomerular Filt Rate 210 ml/min (>60); GFR (African American) 254 ML/MIN (>60); Lipase 20 U/L (23-300)
[2025-02-07 09:27] LABS: Alanine Aminotransferase 13 U/L (12-78); Albumin/Globulin Ratio 1.6 (1.1-1.8); Alkaline Phosphatase 70 U/L (38-126); Anion Gap 8.5 mEq/L (5-15); Aspartate Amino Transferase 28 U/L (17-59); Bilirubin,Total 0.9 mg/dl (0.2-1.3); Calcium 8.6 mg/dl (8.4-10.2); Carbon Dioxide 32 mmol/L (22.0-30.0); Globulin 2.8 g/dL (1.3-3.2); Glucose 116 mg/dl (74-100); Total Protein,Serum 7.3 g/dl (6.3-8.2)
[2025-02-07 09:36] LABS: NT Pro Brain Natriuretic Pep. 3110 pg/mL (0-125)
[2025-02-07 09:42] LABS: Troponin I < 0.01 ng/ml (0.00-0.034)
--- NOTE | 2025-02-07 10:02 | PC.NURSE ---
I rounded on the pt. no new complaints. He stated he was having trouble with his phone, I helped connect it to [employer]. no other needs voiced. call tsang in reach.
[2025-02-07] MEDS: IPRATROPIUM/ALBUTEROL 3 ML NEB 6 ML IH (10:05)
[2025-02-07 11:01] LABS: RBC Morphology Normal; Total Cells Counted 100
[2025-02-07 12:29] LABS: Troponin I < 0.01 ng/ml (0.00-0.034)
== END 2025-02-07 13:09 | disposition home or self-care (01) ==
PROVIDERS: Emergency Provider Student in an Organized Health Care Education/Training Program
DX: R07.89 Other chest pain (principal); J44.1 Chronic obstructive pulmonary disease with (acute) exacerbation; E87.1 Hypo-osmolality and hyponatremia; I44.7 Left bundle-branch block, unspecified; Z99.81 Dependence on supplemental oxygen
CPT/HCPCS: 71045; 80053; 83690; 83880; 84484; 85007; 85014; 85018; 85048; 85049; 87636; 93005; 96374; 99285; J2270